=== PATIENT | female | born 1965 | race Caucasian/White ===

== ENCOUNTER → 2016-07-02 | Outpatient (REF) | payer OTHER ==
[~2016-07-02] MED LIST: /CELE20CA PO; /FENO48TA OR; /LINE60TA OR; ACET-654 PO; ACET65TA OR; ALTE2VL IV; AQUAOI TOP; ASCO25TA PO; ASCO500T PO; ASPI1TAB PO; ASPI81CH PO; ASPI81TA7 PO; ATIV1TAB7 PO; ATOR1TAB18 PO; ATOR1TAB19 PO; ATOR40TA PO; AVELOX IV; AZIT500T2 PO; BACT2OIN2 TOP; BACT800T5 PO; BENA25TA4 PO; BISA5TAB7 PO; CEFA1VL IV; CEFD1CAP8 PO; CEFD300CAP PO; CLIN300C PO; COLA100C PO; DAPTOMYCIN IV; EUCECRE2 TOP; EUCECRE3 TOP; FENO160T10 PO; FERR325T PO; FLUC10TA PO; FURO20TA2 PO; GABA-283 PO; GABA300C3 PO; GEMF600T PO; GLUC1000 OR; GLUC1000 PO; GLUC1VL SC; GLUC4CHW PO; HEPA100PFS INJ; HEPA100PFS IV; HEPA100SYR IV; HEPA500020 SC; HEPARIN IVF; INSUDET SC; INSUH10VL SC; INSUHUMDS SC; INSULADS SC; INSULANT SC; INSULIN ASPART; INSULIN ASPART SQ; JANUVIA OR; LEVA500T PO; LEVO750T PO; LIPI80TA PO; LISI-538 PO; LISI20TA5 OR; MAG400TA PO; MAGN400T5 PO; MAGN500T2 OR; MAPA325T2 PO; METF1000 PO; MOM30SS PO; MOTR200T40 PO; MULTCAP PO; NACL IVF; NEUR100C OR; NEUR100C PO; NICO14DI3 TD; NYST10PW TOP; ONDA1TAB15 PO; OXCA15HATB OR; OXYC15TA76 PO; OXYC1CON PO; OXYC1SOL PO; OXYCO5TA PO; PEG1POW PO; PERC5TAB PO; PERC5TAB6 PO; PERC5TAB8 OR; PERCOCET PO; PRIN10TA PO; REGL5TAB2 PO; ROBA750T4 PO; ROXI1TAB2 PO; SALI0.9I2 IV; SENO8.6T9 PO; SIMV80TA OR; SLF IV; TEFL600I IV; TRIA1OI EXT; TRIA1OI TOP; TRIL150T PO; TRIL1TAB PO; TRIL300S PO; TYLE325T5 PO; TYLE650T30 PO; VANC1INJ IV; VARE1TA PO; VITA-130 PO; VITMTA PO; ZOLO100T PO; ZOLO25TA PO; ZOLO50TA OR; [UNRECOGNIZED DRUG - CODE] EXT; [UNRECOGNIZED DRUG - CODE] INJ; [UNRECOGNIZED DRUG - OTHER]; [UNRECOGNIZED DRUG - OTHER]; [UNRECOGNIZED DRUG - OTHER] IVFLUSH; lantus SQ; tricor PO
[2016-07-02 13:18] LABS: ALBUMIN 2.5 GM/DL (3.2-5.2); ALBUMIN/GLOBULIN RATIO 0.58 (1.00-1.93); ALKALINE PHOSPHATASE 168 U/L (45-117); ALT/SGPT 18 U/L (12-78); ANION GAP 11 MEQ/L (8-16); AST/SGOT 7 U/L (15-37); BILIRUBIN,TOTAL 0.2 MG/DL (0.2-1.0); BLOOD UREA NITROGEN 15 MG/DL (7-18); CALCIUM LEVEL 9.2 MG/DL (8.5-10.1); CARBON DIOXIDE LEVEL 27 MEQ/L (21-32); CHLORIDE LEVEL 100 MEQ/L (98-107); GLOMERULAR FILTRATION RATE > 60.0 (>58); GLUCOSE, FASTING 278 MG/DL (70-105); POTASSIUM SERUM 4.6 MEQ/L (3.5-5.1); SODIUM LEVEL 138 MEQ/L (136-145); TOTAL PROTEIN 6.8 GM/DL (6.4-8.2)
== END | disposition home or self-care (01) ==
LOC: M SFHCPLAZ 08:27
PROVIDERS: ATTEND Physician Assistant Medical
DX: E11.40 Type 2 diabetes mellitus with diabetic neuropathy, unspecified (principal)

== ENCOUNTER → 2016-07-04 | Outpatient (REF) | payer OTHER ==
[2016-07-04 10:19] LABS: CHOLESTEROL LEVEL 232 MG/DL (<200); TRIGLYCERIDES LEVEL 469 MG/DL (<150)
== END | disposition home or self-care (01) ==
LOC: M LAB REF 09:41
PROVIDERS: ATTEND Physician Assistant Medical
DX: E11.40 Type 2 diabetes mellitus with diabetic neuropathy, unspecified (principal); E78.5 Hyperlipidemia, unspecified

== ENCOUNTER → 2016-08-25 | Outpatient (REF) | payer OTHER ==
[~2016-08-25] MED LIST changes: -MOTR200T40 PO; +MOTR200T44 PO; +VANC10005 INJ; -[UNRECOGNIZED DRUG - CODE] INJ
[2016-08-25 12:09] LABS: BASO # 0.1 K/mm3 (0.0-0.2); BASO % 0.7 % (0.0-1.0); EOS # 0.1 K/mm3 (0.0-0.50); LARGE UNSTAINED CELL # 0.2 K/mm3 (0.0-0.4); LARGE UNSTAINED CELL % 1.2 % (0.0-4.0); LYMPH # 2.8 K/mm3 (1.5-4.5); LYMPH % 20.7 % (24.0-44.0); MEAN CORPUSCULAR HEMOGLOBIN 27.5 pg (27.0-33.0); MEAN CORPUSCULAR HGB CONC 32.9 g/dl (32.0-36.5); MEAN CORPUSCULAR VOLUME 83.7 fl (80.0-96.0); MONO # 0.8 K/mm3 (0.0-0.8); MONO % 5.9 % (0.0-5.0); NEUTROPHILS % 70.4 % (36.0-66.0); PLATELET COUNT, AUTOMATED 357 k/mm3 (150-450); RED CELL DISTRIBUTION WIDTH 14.6 % (11.5-14.5); WHITE BLOOD COUNT 12.8 K/mm3 (4.0-10.0)
[2016-08-25 12:24] LABS: ANION GAP 14 MEQ/L (8-16); BLOOD UREA NITROGEN 19 MG/DL (7-18); CALCIUM LEVEL 8.4 MG/DL (8.5-10.1); CARBON DIOXIDE LEVEL 21 MEQ/L (21-32); CHLORIDE LEVEL 104 MEQ/L (98-107); CREATININE FOR GFR 0.58 MG/DL (0.55-1.02); GLOMERULAR FILTRATION RATE > 60.0 (>58); GLUCOSE, FASTING 225 MG/DL (70-105); SODIUM LEVEL 139 MEQ/L (136-145)
[2016-08-25 12:43] LABS: ERYTHROCYTE SEDIMENTATION RATE 46 mm/hr (0-20)
== END ==
LOC: M SFHCPLAZ 09:54
PROVIDERS: ATTEND Internal Medicine Infectious Disease
DX: M86.671 Other chronic osteomyelitis, right ankle and foot (principal); E11.40 Type 2 diabetes mellitus with diabetic neuropathy, unspecified

== ENCOUNTER → 2016-08-27 | Outpatient (CLI) | payer OTHER ==
--- NOTE | 2016-08-27 17:00 | REP ---
MRI study of the right foot without and with IV gadolinium: History: Chronic osteomyelitis right foot. Comparison MRI study is from 11/16/2015. Comparison exam showed signal intensity findings compatible with osteomyelitis in the 1st and the 5th metatarsals. The patient is status post amputation of the forefoot across the mid metatarsals. The most recent comparison radiographs available are from 08/18/2015. Gadolinium enhancement dose: 22 mL of intravenous ProHance is administered. MRI technique: Axial, coronal and sagittal imaging planes are utilized. T1 and T2-weighted scans were obtained with and without fat saturation in the usual fashion. MRI findings: The previously noted findings of intraosseous low T1, high T2 signal intensity in the remaining aspect of the 5th metatarsal is resolved on today's study. However, there is persistent or recurrent abnormal signal intensity in the remaining 1st metatarsal characterized by low T1 and high T2 signal intensity on precontrast study and gadolinium enhancement on postcontrast imaging again consistent with osteomyelitis. There is some cortical destruction and there appears to be periosteal reaction. Enhancement is seen in the volar and distal soft tissues at this level as well at the stump. No soft tissue abscess is seen. There is an overlying dressing and some soft tissue deficiency suggesting the possibility of a fistula. The remaining 2nd, 3rd, and 4th metatarsals show normal signal intensity. The tarsal bones show normal cortical and medullary bone signal intensity. No other lesion. Impression: Today's findings are consistent with ongoing osteomyelitis involving the remaining 1st metatarsal. No abscess is seen in the adjacent soft tissues. Signed by Kit Sandhu MD 08/27/2016 05:24 P
== END ==
LOC: M RAD 13:17
PROVIDERS: ATTEND Internal Medicine Infectious Disease
DX: M86.671 Other chronic osteomyelitis, right ankle and foot (principal)
CPT/HCPCS: 73720; A9576

== ENCOUNTER → 2016-09-30 | Outpatient (REF) | payer OTHER ==
[~2016-09-30] MED LIST changes: -COLA100C PO; +COLA100C3 PO; +GABA-282 PO; -GABA300C3 PO
[2016-10-01 13:57] LABS: CALCIUM OXALATE CRYSTALS LARGE
== END ==
LOC: M SFHCPLAZ 12:12
PROVIDERS: ATTEND Physician Assistant Medical
DX: R30.0 Dysuria (principal)

== ENCOUNTER → 2016-10-03 | Outpatient (REF) | payer OTHER ==
[2016-10-03 15:58] LABS: YEAST LIKE CELL URINE AUTO MODERATE
== END ==
LOC: M SFHCPLAZ 15:36
PROVIDERS: ATTEND Physician Assistant Medical
DX: N30.01 Acute cystitis with hematuria (principal)

== ENCOUNTER → 2016-12-24 | Outpatient (REF) | payer OTHER ==
[~2016-12-24] MED LIST changes: -ATOR1TAB18 PO; +ATOR80TA59 PO; +BACL10TA2 PO; +BACT2OIN10 TOP; -BACT2OIN2 TOP; -COLA100C3 PO; +COLA100C5 PO; +DULO30CA PO; +FERR1TAB8 PO; -FERR325T PO; +FURO40TA2 PO; +GABA800T PO; +GLUC500T PO; +HYDR-3363 PO; +LEVA1TAB2 PO; -LEVA500T PO; +LISI-542 PO; +LISI2.5T3 PO; -METF1000 PO; +METF10004 PO; -ONDA1TAB15 PO; +ONDA4TAB5 PO; +OXCA150T PO; -OXYC1SOL PO; +OXYC1SOL3 PO; +PERC5TAB12 PO; -PERC5TAB6 PO; +TOUJ1.2I SC; -VITA-130 PO; +VITA500T PO
[2016-12-24 16:36] LABS: ANION GAP 8 MEQ/L (8-16); BLOOD UREA NITROGEN 15 MG/DL (7-18); CALCIUM LEVEL 8.7 MG/DL (8.5-10.1); CARBON DIOXIDE LEVEL 26 MEQ/L (21-32); CHLORIDE LEVEL 99 MEQ/L (98-107); GLOMERULAR FILTRATION RATE > 60.0 (>58); POTASSIUM SERUM 4.7 MEQ/L (3.5-5.1); SODIUM LEVEL 133 MEQ/L (136-145)
[2016-12-24 16:45] LABS: GLUCOSE, FASTING 440 MG/DL (70-105)
[2016-12-24 17:21] LABS: BASO # 0.1 K/mm3 (0.0-0.2); BASO % 0.9 % (0.0-1.0); EOS # 0.2 K/mm3 (0.0-0.50); EOS % 1.7 % (0.0-3.0); LARGE UNSTAINED CELL # 0.2 K/mm3 (0.0-0.4); LARGE UNSTAINED CELL % 1.7 % (0.0-4.0); LYMPH # 3.1 K/mm3 (1.5-4.5); MEAN CORPUSCULAR HEMOGLOBIN 29.2 pg (27.0-33.0); MEAN CORPUSCULAR HGB CONC 32.7 g/dl (32.0-36.5); MEAN CORPUSCULAR VOLUME 89.4 fl (80.0-96.0); MONO # 0.4 K/mm3 (0.0-0.8); NEUTROPHILS % 60.7 % (36.0-66.0); PLATELET COUNT, AUTOMATED 397 k/mm3 (150-450); WHITE BLOOD COUNT 9.8 K/mm3 (4.0-10.0)
[2016-12-24 21:03] LABS: ERYTHROCYTE SEDIMENTATION RATE 75 mm/hr (0-20)
== END ==
LOC: M SFHCPLAZ 13:06
PROVIDERS: ATTEND Internal Medicine Infectious Disease
DX: M86.671 Other chronic osteomyelitis, right ankle and foot (principal); E11.42 Type 2 diabetes mellitus with diabetic polyneuropathy

== ENCOUNTER 2017-01-02 06:48 | Inpatient (IN) | payer OTHER ==
[~2017-01-02] VITALS: Ht 157.5 cm; Wt 115.7 kg
[2017-01-02] VITALS (9 sets, daily range): BP systolic 120–174; BP diastolic 56–84
[~2017-01-02 06:48] MED LIST changes: -BACL10TA2 PO; -DULO30CA PO; -FURO40TA2 PO; -GABA800T PO; -GLUC500T PO; -HYDR-3363 PO; -LISI-542 PO; -LISI2.5T3 PO; -OXCA150T PO; -TOUJ1.2I SC
[2017-01-02 07:52] LABS: BASO # 0.1 K/mm3 (0.0-0.2); BASO % 0.8 % (0.0-1.0); EOS # 0.2 K/mm3 (0.0-0.50); EOS % 2.5 % (0.0-3.0); LARGE UNSTAINED CELL # 0.1 K/mm3 (0.0-0.4); LARGE UNSTAINED CELL % 1.4 % (0.0-4.0); LYMPH % 32.9 % (24.0-44.0); MEAN CORPUSCULAR HEMOGLOBIN 28.9 pg (27.0-33.0); MEAN CORPUSCULAR HGB CONC 33.2 g/dl (32.0-36.5); MONO # 0.4 K/mm3 (0.0-0.8); NEUTROPHILS % 57.4 % (36.0-66.0); PLATELET COUNT, AUTOMATED 354 k/mm3 (150-450); RED CELL DISTRIBUTION WIDTH 13.9 % (11.5-14.5); WHITE BLOOD COUNT 8.7 K/mm3 (4.0-10.0)
[2017-01-02 08:10] LABS: METHADONE URINE NEGATIVE (NEGATIVE)
[2017-01-02 08:14] LABS: ALBUMIN 2.6 GM/DL (3.2-5.2); ALBUMIN/GLOBULIN RATIO 0.54 (1.00-1.93); ALKALINE PHOSPHATASE 125 U/L (45-117); ALT/SGPT 20 U/L (12-78); ANION GAP 9 MEQ/L (8-16); AST/SGOT 12 U/L (15-37); BILIRUBIN,DIRECT < 0.1 MG/DL (0.0-0.2); BILIRUBIN,TOTAL 0.2 MG/DL (0.2-1.0); BLOOD UREA NITROGEN 23 MG/DL (7-18); CALCIUM LEVEL 8.7 MG/DL (8.5-10.1); CARBON DIOXIDE LEVEL 25 MEQ/L (21-32); CHLORIDE LEVEL 105 MEQ/L (98-107); CREATININE FOR GFR 1.02 MG/DL (0.55-1.02); GLOMERULAR FILTRATION RATE > 60.0 (>58); POTASSIUM SERUM 4.4 MEQ/L (3.5-5.1); SODIUM LEVEL 139 MEQ/L (136-145); TOTAL PROTEIN 7.4 GM/DL (6.4-8.2)
[2017-01-02] MEDS ORDERED: DULO30CA PO (08:16)
[2017-01-02 08:17] LABS: GLUCOSE, FASTING 445 MG/DL (70-105)
[2017-01-02] MEDS ORDERED: TOUJ1.2I SC (08:17)
[2017-01-02] MEDS ORDERED: BACL10TA2 PO (08:18)
[2017-01-02] MEDS ORDERED: CHLORHEXIDINE GLUCONATE 0.12 % 15ML UDC (PERIDEX ORAL RINSE) MT SCH (09:00)
[2017-01-02] MEDS ORDERED: PANTOPRAZOLE 40MG INJ (PROTONIX) (C9113) IV SCH (09:00)
[2017-01-02] MEDS ORDERED: GABA800T PO (09:29)
[2017-01-02] MEDS ORDERED: OXCA150T PO (09:29)
[2017-01-02] MEDS ORDERED: LISI2.5T3 PO (09:29)
[2017-01-02] MEDS ORDERED: PROPOFOL 1,000 MG/100 ML VIAL As Ordered ONE (09:29)
[2017-01-02] MEDS ORDERED: ATOR1TAB19 PO (09:29)
[2017-01-02] MEDS ORDERED: NEUR100C PO (09:29)
[2017-01-02] MEDS ORDERED: NS 1,000 ML IV SCH (09:30)
[2017-01-02] MEDS ORDERED: PROPOFOL 1,000 MG in APPROPRIATE DILUENT 1 EA IV SCH ×2 (09:30→10:44)
[2017-01-02 10:04] LABS: ABG BASE EXCESS -5.2 (-2.0-2.0); ABG HCO3 21.2 MEQ/L (22.0-26.0); ABG PARTIAL PRESSURE CO2 44.2 mmHg (35.0-45.0); ABG PARTIAL PRESSURE O2 149.1 mmHg (75.0-100.0); ABG STANDARD HCO3 20.3 MEQ/L (22.0-26.0); ABG TOTAL CO2 22.5 MEQ/L (22.0-29.0); ABG pH (ARTERIAL) 7.298 UNITS (7.350-7.450)
--- NOTE | 2017-01-02 10:11 | REP ---
Clinical: Intubation. Comparison: 11/08/2015. Findings: Endotracheal tube approximately 2.4 cm above the madhav. Bilateral perihilar infiltrates cannot be excluded (left greater than right). The mediastinum and cardiac silhouette are within normal limits. No effusion. No pneumothorax. Skeletal structures intact. Impression: Endotracheal tube approximately 2.4 cm above the madhav. Cannot exclude perihilar/retrocardiac atelectasis. Signed by Kaiden Buenrostro MD 01/02/2017 10:02 A
[2017-01-02] MEDS ORDERED: SUCCINYLCHOLINE INJ 200 MG/10 ML VIAL (J0330) IV ONE (10:30)
[2017-01-02] MEDS ORDERED: ETOMIDATE INJ 20MG/10ML VIAL IV ONE (10:30)
[2017-01-02] MEDS ORDERED: LIDOCAINE 2% INJ 100 MG/5 ML SYRINGE IV ONE (10:30)
[2017-01-02] MEDS ORDERED: DEXTROSE 50% 50 ML SYRINGE IV PRN (11:15)
[2017-01-02] MEDS ORDERED: GLUCAGON FOR INJ 1 MG VIAL (J1610) SC PRN (11:15)
[2017-01-02] MEDS ORDERED: GLUCOSE 4 GM CHEW TABLET PO PRN (11:15)
[2017-01-02] MEDS ORDERED: MIDAZOLAM INJ 2 MG/2 ML VIAL (J2250) As Ordered ONE (12:35)
[2017-01-02] MEDS ORDERED: MORPHINE 2 MG/ML 1ML SYRINGE IV PRN (13:00)
[2017-01-02 13:10] LABS: GLUCOSE,RANDOM 449 MG/DL (LESS THAN 200)
[2017-01-02] MEDS: HEPARIN SOD (PORCINE) 5000 UNITS/ML VIAL SC SCH ×2 (13:18→21:03)
[2017-01-02] MEDS: LEVEMIR (INSULIN DETEMIR) 1 UNITS/0.01ML SC SCH (13:19)
[2017-01-02] MEDS: HumaLOG INSULIN (NovoLOG) PER UNIT SC SCH ×3 (13:19→23:56)
[2017-01-02] MEDS: NS 1,000 ML IV SCH ×2 (13:20→19:20)
--- NOTE | 2017-01-02 13:38 | HPE ---
DATE OF ADMISSION: 01/02/2017 Time patient was seen was this morning at 10:30. PRIMARY CARE PROVIDER: The patient's primary care provider is Elly Sexton. CHIEF COMPLAINT: Overdose. HISTORY OF PRESENT ILLNESS: 51-year-old female with multiple comorbidities, most significantly insulin-dependent type 2 diabetes, bipolar, chronic osteomyelitis, status post bilateral metatarsal amputations with chronic right stump ulcer, who presented with drug overdose. The patient was initially seen by emergency room physician. She was awake and alert initially, and stated that she might have overdosed on metformin and also Lisinopril and also "sleep medication." The patient later on became somnolent and was subsequently intubated. At this point, critical care was emergently consulted. Poison control was contacted. The patient was kept on pressure control ventilator. Upon reviewing the patient 's outpatient visit, she was recently started on Baclofen and Trileptal, which could explain the patient' s somnolence. The patient did not have a low blood pressure, nor did she have lactic acid increase while she was in the emergency room essentially eliminating metformin and lisinopril as the overdose agents. Due to intubated and sedation with propofol, she could not be interviewed. ALLERGIES: The patient is allergic to PROZAC, which gives her hives, TRAZODONE gives her hives, SUDAFED gives her hives as well. PAST MEDICAL HISTORY: 1. Insulin dependent type 2 diabetes. 2. Chronic osteomyelitis of bilateral feet, status post metatarsal amputations. 3. New ulcer at the right stump of the lower extremity, receiving antibiotic therapy. 4. Hypertension. 5. Hyperlipidemia. 6. Bipolar. 7. 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 PAST SURGICAL HISTORY: 1. Left and right partial foot amputations. 2. Tubal ligation. 3. section. 4. Cholecystectomy. HOME MEDICATIONS: Include: - multivitamin - ascorbic acid - Eucerin cream - Lisinopril 2.5 mg one tablet by mouth daily - Cymbalta 30 mg one tablet by mouth daily - gabapentin 800 mg one tablet by mouth three times a day - atorvastatin 10 mg one tablet by mouth daily - metformin 1000 mg one tablet by mouth - Toujeo 63 units subcutaneously twice a day - amoxicillin 875 mg one tablet every 12 hours Recently started on Baclofen 10 mg one tablet by mouth three times a day for 30 days and Trileptal. PHYSICAL EXAMINATION: VITAL SIGNS: Temperature 96.7, pulse 97, respirations 14, blood pressure 162/85 , oxygen saturation at 99% on pressure support mechanical ventilation with PEEP of 5, pressure of 15, and FiO2 of 40. GENERAL: The patient is morbidly obese, middle aged female who looks older than her age. The patient was intubated and sedated with head elevated at 30 degrees. HEENT: Normocephalic, atraumatic. Extraocular motors could not be assessed due to the patient is unresponsive and sedated. Mucous membranes moist. NECK: Supple. No neck lymphadenopathy. CARDIOVASCULAR: Tachycardic. Normal S1, S2. No murmurs. LUNGS: Clear to auscultation bilaterally. No wheezes, rales or rhonchi. Normal I:E. ABDOMEN: Positive bowel sounds. Soft, nondistended. No ecchymosis. EXTREMITIES: No edema, clubbing or cyanosis. The patient does have bilateral partial foot amputation with a chronic right foot stump ulcer, which was examined and shows good granulation tissue. Does not look purulent. There was only slight amount of drainage and a slightly erythematous. SKIN: Warm and dry. NEUROLOGIC: Could not be assessed due to the patient is sedated. However, the patient was responsive to pain. LABORATORY DATA: WBC 8.7, hemoglobin 12.7, hematocrit 38.2 with a platelet count of 354, MCV of 87, neutrophil percentage was 57.4, lymphocyte percentage 32.9. Sodium 139, potassium 4.4, chloride 105, bicarbonate 25, anion gap was 9, BUN 23 , creatinine 1.02, GFR greater than 60, fasting glucose 445, lactic acid 1.2, calcium 8.7, total bilirubin 0.2, direct bilirubin less than 0.01, AST 12, ALT 20, alkaline phosphatase 125, total CK 47, protein 7.4, albumin 2.6. The patient's ABG shows a pH of 7.29, PCO2 of 44, PO2 of 149, oxygen saturating at 98.9%, base excess of -5.2. The patient's urine drug screen shows negative. Accu-Chek glucose was 421. There is no culture. The patient did have a portable chest x-ray status post intubation that shows endotracheal tube in the correct location; no consolidated areas, normal cardiac silhouette and pulmonary vascular shadows. EKG shows sinus tachy without prolonged QTc. ASSESSMENT AND PLAN: 51-year-old female with a past medical history most significantly insulin-dependent type 2 diabetes, osteomyelitis of the right foot , also status post bilateral partial foot amputations, chronic ulcer of the stump on the right side, bipolar, and hypertension, who presented with: 1. Drug overdose. Could not protect the airway and therefore is on mechanical ventilation. At this point, it is unclear which medication she overdosed on. The patient stated initially that she took metformin, Lisinopril and a sleeping pill. Will recheck salicylate and acetaminophen levels. After reviewing medication list, this is likely Baclofen and/or Trileptal. We will continue IV fluid. We will continue supportive care with mechanical ventilation and iv fluids. 2. Left lower extremity chronic ulcer. The patient takes amoxicillin outpatient and follows with Dr. Thomas. The wound has been inspected and shows good granulation tissue. No purulent drainage. Due to patient's nothing by mouth, we will switch the patient to a first generation cephalosporin, cefazolin IV every 8 hours and we will switch back to amoxicillin once the patient is able to tolerate orally and continue to monitor the patient. Dr. Thomas has been consulted, will follow her recommendation. 3. Insulin-dependent type 2 diabetes with hyperglycemia. On presentation, the patient's glucose was 445. The patient was on Toujeo 63 twice a day at home. Due to the patient's overdose, we will cut the insulin dose to 40 subcutaneously daily and continue the patient on insulin sliding scale. We will increase as needed. 4. Chronic pain. Gabapentin on hold due to nothing by mouth. 5. Hyperlipidemia. Continue to hold statin due to nothing by mouth. 6. Hypertension. Holding blood pressure medication for now. If elevated, we will adjust blood pressure as needed. 7. Deep vein thrombosis (DVT) prophylaxis. On heparin subcutaneously every 8 hours. 8. Stress ulcer prophylaxis with PPi. Total critical care time was 1 hour excluding procedure time. ADDENDUM: I, Dr. Kimberly Jasso, independently obtained a history and performed an examination and agree with the documentation. I discussed the assessment and plan with the resident and agree with the above documentation. JACOB
[2017-01-02] MEDS: ceFAZolin SOD 1 GM in D5W MINI-BAG PLUS 50 ML IV SCH ×2 (13:53→19:58)
[2017-01-02] MEDS: MIDAZOLAM INJ 2 MG/2 ML VIAL (J2250) IV PRN ×3 (13:56→14:32)
[2017-01-02] MEDS ORDERED: PROPOFOL 200 MG/20 ML VIAL ONE (15:08)
[2017-01-02] MEDS ORDERED: ETOMIDATE INJ 20MG/10ML VIAL ONE (15:08)
[2017-01-02] MEDS ORDERED: SUCCINYLCHOLINE 100 MG/5 ML SYRINGE (J0330) ONE (15:08)
[2017-01-02] MEDS ORDERED: ONDANSETRON 4MG/2ML VIAL (J2405) As Ordered ONE (16:22)
[2017-01-02] MEDS: ONDANSETRON 4MG/2ML VIAL (J2405) IV PRN (16:52)
--- NOTE | 2017-01-02 20:52 | ECGEPIP ---
Stationary ECG Study [facility] - ED Test Date: 2017-01-02 Pat Name: KIYA MCKENZIE Department: Room: - Gender: F Bureau Director: sb : [id number] Requested By: HASMUKH Carrasquillo Order Number: [id number] Reading MD: Lidia Robertson Measurements Intervals [place] Rate: 92 P: 66 [place]: 199 QRS: -24 QRSD: 100 T: 59 QT: 355 QTc: 440 Interpretive Statements SINUS RHYTHM BORDERLINE LEFT AXIS DEVIATION MODERATE VOLTAGE CRITERIA FOR LVH, CONSIDER NORMAL VARIANT INCREASED RATE 02/20/15 Electronically Signed On 01-02-2017 20:52:35 EDT by Lidia Robertson
--- NOTE | 2017-01-02 23:55 | CCN ---
DATE: 01/02/2017 This is the second critical care note today on Ms. Mckenzie: Ms. Mckenzie was admitted this morning after presenting to the emergency department with a complaint of taking extra medication that appeared to be secondary to suicidal attempt/gesture. It is unclear as to what medications she took, as the medication she claimed to have taken we see no signs of. That was lisinopril and she has actually been hypertensive, and metformin and she has had elevated glucoses. She has been monitored for changes from either of those two medications for 10 hours. Relatively new medications were Trileptal and baclofen and both of those could cause a sedating effect, which may have been what she had taken more of. In the emergency department, she was described as getting more lethargic, loss of gag and she was intubated. By the time she arrived in the intensive care unit, she appeared to be awake and following commands. She was sedated and watched for several more hours. When her sedation was discontinued, she was awake, alert with a very strong gag and strong cough, was following commands. A brief weaning trial was done on a pressure support of 5 and a PEEP of 5. On those settings, she could increase her tidal volume on request to greater than 1100 mL. A rapid shallow breathing index was in the 30s. She had no significant secretions, and it was felt reasonable to extubate her. She was successfully extubated and is now on an aerosol mask. She indicates she is getting enough air. She has no complaints of chest pain or shortness of breath. No abdominal pain or feelings of nausea. Additional critical care time: 25 minutes, not including procedure time. JACOB
[2017-01-03] VITALS (12 sets, daily range): BP systolic 142–189; BP diastolic 60–90
[2017-01-03] MEDS: ceFAZolin SOD 1 GM in D5W MINI-BAG PLUS 50 ML IV SCH ×3 (03:14→21:47)
--- NOTE | 2017-01-03 03:24 | CR ---
DATE OF CONSULTATION: 01/02/2017 I was asked to consult by Dr. Jasso for management of chronic osteomyelitis of the right foot. HISTORY OF PRESENT ILLNESS: Iliana is a pleasant 51-year-old morbidly obese female with insulin-dependent diabetes and chronic osteomyelitis of the right foot, who follows up with me for management of antibiotic, but has a history of noncompliance. A week ago due to a new ulcer of the right foot with positive culture for group B Streptococcus. The patient was brought into the emergency room awake and alert and then stated in the emergency room she might have overdosed on metformin and some sleep medication. Recently she was given baclofen and Trileptal by her primary care provider for management of depression. When I saw her in the office, she was complaining of being very depressed, had not been seen by a psychiatrist. I did recommend to her at that visit to go to the walk-in clinic on 12/31 that [facility] had available. The patient had promised me that she would do a walk-in appointment. Dr. Jasso was consulted and she was intubated for mental status changes and possible overdose and was started on intravenous (IV) antibiotics. ALLERGIES: PROZAC, TRAZODONE, SUDAFED. PAST MEDICAL HISTORY: Significant for: 1. Insulin-dependent diabetes type 2 with poor compliance. 2. Chronic osteomyelitis of the right foot status post transmetatarsal amputation with persistent open ulcer that is over the first metatarsal and a new ulcer along the fourth metatarsal. 3. Left foot status post transmetatarsal amputation well healed, neurotic excoriation. 4. Hypertension. 5. Hyperlipidemia. 6. Bipolar disorder. 7. History of methicillin-resistant Staphylococcus aureus (MRSA) infection. PAST SURGICAL HISTORY: 1. Bilateral transmetatarsal amputation. 2. Tubal ligation. 3. section. 4. Cholecystectomy. MEDICATIONS: - heparin subcutaneously 5000 units every 8 hours - Versed drip for sedation - morphine as needed for pain - insulin sliding scale - cefazolin 1 gram IV every 8 hours - nystatin powder to rash - Peridex oral rinse - Protonix 40 mg IV daily - Levemir 40 units subcutaneously daily LABORATORY DATA: White count was 8.7, hemoglobin 12.7, hematocrit 38.2, platelets 354, 57% neutrophils, 32% lymphocytes, 5% monocytes. Sodium 139, potassium 4.4, chloride 105, bicarbonate 25, BUN 23, creatinine 1, glucose 445. Followup glucose was 367. Calcium 8.7, total bilirubin 0.2, AST 12, ALT 20, alkaline phosphatase 125, CPK 47, total protein 7.4, albumin 2.6. Salicylate was 1.7 and Tylenol less than 2. Opiates were negative. Alcohol level less than 0.003. PHYSICAL EXAMINATION: Vital signs: Temperature is 97.8, pulse 96, respirations 16, blood pressure 132/62, oxygen saturation 99% on FiO2 of 50%. Heart: Normal S1, S2. No murmurs, rubs or gallops. Lungs are clear. No wheezes, rales or rhonchi. Abdomen: Morbidly obese, soft, nontender. Extremities: Bilateral transmetatarsal amputation. Right foot has an open ulcer overlying the first metatarsal site with erythema. The right plantar aspect of the foot has another ulcer measuring about 3 x 3 cm with yellowish discharge. There is erythema involving the whole stump of the foot, but some of it looks scaly and seems like a contact dermatitis from bandages. IMPRESSION: This is a 51-year-old female with a history of chronic osteomyelitis of the right foot with most recent cultures positive for group B Streptococcus, had been on Augmentin. The patient is admitted with mental status changes and required intubation for possible overdose, although her toxicology screens are all negative. She is stable currently. She does not seem to be septic. She is on intravenous (IV) cefazolin for osteomyelitis of the foot with a previous culture positive for group B Streptococcus. She has had a history of methicillin-resistant Staphylococcus aureus (MRSA) in the past and needs to be on contact isolation, but no recent cultures have been positive for that. The last culture that I have available to me was from the wound clinic in [facility] where she follows up with Dr. Livingston, was from 12/05 and had large numbers of group B Streptococcus sensitive to penicillin, vancomycin and levofloxacin. The patient had been on Augmentin since then. MRI of the right foot before the new ulcer developed showed osteomyelitis of the first metatarsal with no abscess formation. PLAN: Once the patient is extubated and her mental status has improved, she would benefit from getting an MRI of the foot and possible need for further surgical debridement. I would consult Dr. Alicea next week regarding further management. Obtain MRI with gadolinium next week. For now, I would continue with IV cefazolin. Contact isolation for previous history of MRSA. Would also add a C-reactive protein (CRP), sedimentation rate in the morning.
[2017-01-03] MEDS: NS 1,000 ML IV SCH (03:26)
[2017-01-03 04:41] LABS: MEAN CORPUSCULAR HEMOGLOBIN 28.8 pg (27.0-33.0); MEAN CORPUSCULAR HGB CONC 33.1 g/dl (32.0-36.5); WHITE BLOOD COUNT 8.9 K/mm3 (4.0-10.0)
[2017-01-03 04:59] LABS: ALBUMIN/GLOBULIN RATIO 0.48 (1.00-1.93); ALKALINE PHOSPHATASE 103 U/L (45-117); ALT/SGPT 17 U/L (12-78); ANION GAP 6 MEQ/L (8-16); AST/SGOT 13 U/L (15-37); BILIRUBIN,TOTAL 0.2 MG/DL (0.2-1.0); BLOOD UREA NITROGEN 15 MG/DL (7-18); CALCIUM LEVEL 8.2 MG/DL (8.5-10.1); CARBON DIOXIDE LEVEL 25 MEQ/L (21-32); CHLORIDE LEVEL 113 MEQ/L (98-107); CREATININE FOR GFR 0.49 MG/DL (0.55-1.02); GLUCOSE, FASTING 190 MG/DL (70-105); POTASSIUM SERUM 3.7 MEQ/L (3.5-5.1); SODIUM LEVEL 144 MEQ/L (136-145); TOTAL PROTEIN 6.2 GM/DL (6.4-8.2)
[2017-01-03] MEDS: HEPARIN SOD (PORCINE) 5000 UNITS/ML VIAL SC SCH ×3 (05:03→21:47)
[2017-01-03 05:10] LABS: GLOMERULAR FILTRATION RATE > 60.0 (>58)
[2017-01-03] MEDS: HumaLOG INSULIN (NovoLOG) PER UNIT SC SCH ×2 (05:55→11:55)
[2017-01-03] MEDS: LEVEMIR (INSULIN DETEMIR) 1 UNITS/0.01ML SC SCH (08:52)
[2017-01-03] MEDS: LISINOPRIL *2.5 MG* TAB PO SCH (14:09)
[2017-01-03] MEDS ORDERED: metFORMIN (GLUCOPHAGE) 1000 MG TABLET PO SCH (18:00)
[2017-01-03] MEDS: ATORVASTATIN 10 MG TAB PO SCH (21:46)
[2017-01-04] MEDS: PERCOCET 5MG/325MG TAB PO PRN ×3 (01:29→16:02)
[2017-01-04] MEDS: ceFAZolin SOD 1 GM in D5W MINI-BAG PLUS 50 ML IV SCH ×3 (03:59→19:51)
[2017-01-04] MEDS: HEPARIN SOD (PORCINE) 5000 UNITS/ML VIAL SC SCH ×3 (05:15→21:09)
[2017-01-04 06:00] VITALS: BP 148/95
[2017-01-04 06:20] LABS: MEAN CORPUSCULAR HGB CONC 33.4 g/dl (32.0-36.5); MEAN CORPUSCULAR VOLUME 86.9 fl (80.0-96.0); RED CELL DISTRIBUTION WIDTH 14.1 % (11.5-14.5); WHITE BLOOD COUNT 9.9 K/mm3 (4.0-10.0)
[2017-01-04 06:55] LABS: ALBUMIN 2.2 GM/DL (3.2-5.2); ALBUMIN/GLOBULIN RATIO 0.49 (1.00-1.93); ALKALINE PHOSPHATASE 117 U/L (45-117); ALT/SGPT 21 U/L (12-78); ANION GAP 9 MEQ/L (8-16); AST/SGOT 12 U/L (15-37); BILIRUBIN,TOTAL 0.2 MG/DL (0.2-1.0); BLOOD UREA NITROGEN 14 MG/DL (7-18); CALCIUM LEVEL 9.3 MG/DL (8.5-10.1); CARBON DIOXIDE LEVEL 25 MEQ/L (21-32); CHLORIDE LEVEL 104 MEQ/L (98-107); CREATININE FOR GFR 0.59 MG/DL (0.55-1.02); GLOMERULAR FILTRATION RATE > 60.0 (>58); GLUCOSE, FASTING 245 MG/DL (70-105); POTASSIUM SERUM 3.9 MEQ/L (3.5-5.1); SODIUM LEVEL 138 MEQ/L (136-145); TOTAL PROTEIN 6.7 GM/DL (6.4-8.2)
[2017-01-04] MEDS: LISINOPRIL *2.5 MG* TAB PO SCH (09:27)
[2017-01-04] MEDS: LEVEMIR (INSULIN DETEMIR) 1 UNITS/0.01ML SC SCH (09:27)
--- NOTE | 2017-01-04 12:09 | IPNPDOC ---
Subjective Date Seen The patient was seen on 01/04/17. Subjective Chief Complaint/HPI The patient is a 51-year-old female admitted with a reason for visit of Intentional Drug Overdose. General: Reports: Normal Appetite, Denies: Chills, Night Sweats Pulmonary: Denies: Dyspnea, Pleuritic Chest Pain Cardiovascular: Denies: Chest Pain, Palpitations, Orthopnea Gastrointestinal: Denies: Nausea, Vomiting, Abdominal Pain Genitourinary: Denies: Dysuria, Frequency Hematologic: Denies: Bruising, Bleeding Excessively Psych: Reports: Other Psych (agreeable to consult with psychiatry for c/o known bipolar Diagnosis) Objective Physical Examination General Exam: Positive: Alert, No Acute Distress Eye Exam: Positive: Conjunctiva & lids normal, EOMI, Negative: Sclera icteric Chest Exam: Positive: Clear to auscultation, Normal air movement Heart Exam: Positive: Rate Normal, Normal S1, Normal S2 Abdomen Exam: Positive: Normal bowel sounds, Soft, Negative: Tenderness Extremity Exam: Positive: Other (s/p left BKA; right forefoot amputation. open draining lesions near forward portion of stump and at heel. dressing replaced. ) Neuro Exam: Positive: Normal Speech Psych Exam: Positive: Mental status NL Assessment /Plan Problems (1) Osteomyelitis Status: Chronic Response to Treatment: Worse, Uncontrolled Problem Specific Plan: Consult Specialist (Consult Dr. Alicea tomorrow, MRI to be done tomorrow) Problem Text: Has been seeing Dr. Thomas and 1st generation cephalosporin has been ordered. MRI scheduled for tomorrow to better define extent of infection Will need consult with Dr. Alicea. He has seen her before. Anticipate she will need additional surgery. (2) IDDM (insulin dependent diabetes mellitus) Status: Chronic Response to Treatment: Stable Problem Specific Plan: Monitor Clinically (3) Bipolar affective disorder Status: Chronic Problem Specific Plan: Consult Specialist Problem Text: Psychiatry consult requested. Note recent intentional medication overdose. Today her mood is neutral, speech pattern normal, behavior controlled. Sitter with her for safety. Plan/VTE VTE Prophylaxis Ordered?: Yes Plan/Urinary Catheter Reason for insertion/continuin: Critical Pt monitoring Plan Diagnostics: MRI (foot) VS, I&O, 24H, Fishbone Vital Signs/I&O Vital Signs Date Time Temp Pulse Resp B/P (MAP) Pulse Ox O2 Delivery O2 Flow Rate FiO2 01/04/17 09:58 17 7/9/17 09:27 148/95 01/04/17 09:00 Room Air 01/04/17 06:00 98.1 79 97 01/03/17 06:00 95 01/03/17 00:00 2.0 I&O- Last 24 Hours up to 6 AM 01/04/17 05:59 Intake Total 3460 ml Output Total 3350 ml Balance 110 ml Laboratory Data 24H LABS Laboratory Tests 2 01/03/17 16:37: Bedside Glucose (Misc Panel) 278H 01/03/17 19:52: Bedside Glucose (Misc Panel) 365H 01/04/17 05:49: Erythrocyte Sedimentation Rate 70H, Anion Gap 9, Glomerular Filtration Rate > 60.0, Blood Urea Nitrogen 14, Creatinine 0.59, Sodium Level 138, Potassium Level 3.9, Chloride Level 104, Carbon Dioxide Level 25, Calcium Level 9.3, Aspartate Amino Transf (AST/SGOT) 12L, Alanine Aminotransferase (ALT/SGPT) 21, Alkaline Phosphatase 117, Total Bilirubin 0.2, Total Protein 6.7, Albumin 2.2L, C-Reactive Protein, Quantitative 4.28H, Albumin/Globulin Ratio 0.49L CBC/BMP Laboratory Tests 01/04/17 05:49 Red Blood Count 4.07, Mean Corpuscular Volume 86.9, Mean Corpuscular Hemoglobin 29.0, Mean Corpuscular Hemoglobin Concent 33.4, Red Cell Distribution Width 14.1 , Calcium Level 9.3, Aspartate Amino Transf (AST/SGOT) 12 L, Alanine Aminotransferase (ALT/SGPT) 21, Alkaline Phosphatase 117, Total Bilirubin 0.2, Total Protein 6.7, Albumin 2.2 L Milton Monaco MD Jan 04, 2017 12:09
[2017-01-04 14:00] VITALS: BP 175/83
[2017-01-04 14:05] VITALS: BP 155/80
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
[2017-01-04] MEDS: ATORVASTATIN 10 MG TAB PO SCH (19:51)
[2017-01-04 22:00] VITALS: BP 140/75
[2017-01-04] MEDS: NYSTATIN 100,000 UNITS/GM TOPICAL PWD 15 GM TOP PRN (22:11)
[2017-01-05] MEDS: PERCOCET 5MG/325MG TAB PO PRN ×3 (01:32→20:55)
[2017-01-05] MEDS: ceFAZolin SOD 1 GM in D5W MINI-BAG PLUS 50 ML IV SCH ×3 (03:44→20:48)
[2017-01-05] MEDS: HEPARIN SOD (PORCINE) 5000 UNITS/ML VIAL SC SCH ×2 (05:27→15:01)
[2017-01-05 05:52] LABS: MEAN CORPUSCULAR HEMOGLOBIN 28.7 pg (27.0-33.0); MEAN CORPUSCULAR HGB CONC 33.3 g/dl (32.0-36.5); MEAN CORPUSCULAR VOLUME 86.3 fl (80.0-96.0); WHITE BLOOD COUNT 8.9 K/mm3 (4.0-10.0)
[2017-01-05 06:00] VITALS: BP 152/80
[2017-01-05 06:11] LABS: ALBUMIN 2.3 GM/DL (3.2-5.2); ALBUMIN/GLOBULIN RATIO 0.51 (1.00-1.93); ALKALINE PHOSPHATASE 118 U/L (45-117); ALT/SGPT 19 U/L (12-78); ANION GAP 7 MEQ/L (8-16); AST/SGOT 13 U/L (15-37); BILIRUBIN,TOTAL 0.2 MG/DL (0.2-1.0); BLOOD UREA NITROGEN 15 MG/DL (7-18); CALCIUM LEVEL 9.2 MG/DL (8.5-10.1); CARBON DIOXIDE LEVEL 27 MEQ/L (21-32); CHLORIDE LEVEL 99 MEQ/L (98-107); CREATININE FOR GFR 0.62 MG/DL (0.55-1.02); GLOMERULAR FILTRATION RATE > 60.0 (>58); GLUCOSE, FASTING 293 MG/DL (70-105); SODIUM LEVEL 133 MEQ/L (136-145); TOTAL PROTEIN 6.8 GM/DL (6.4-8.2)
[2017-01-05] MEDS: LISINOPRIL 5 MG TAB PO SCH (08:39)
[2017-01-05] MEDS: LEVEMIR (INSULIN DETEMIR) 1 UNITS/0.01ML SC SCH ×2 (08:40→20:49)
--- NOTE | 2017-01-05 10:43 | REP ---
MRI RIGHT FOOT WITH AND WITHOUT CONTRAST: Multiple sequences obtained in the axial, coronal, and sagittal planes prior to and following the intravenous administration of 24 mL of gadolinium. Comparison made with prior study of 08/27/2016. Patient has had prior amputation at the level of the mid metatarsals. Once again there is persistent abnormal signal in the distal aspect of the first metatarsal. This signal is hypointense on T1 and hyperintense on T2. There is ill-defined enhancement of this portion of the bone consistent with chronic osteomyelitis. Findings are similar to the prior exam. No new abnormal bone marrow signal is seen in the osseous structures of the right foot and there is no other area of abnormal marrow enhancement. There is diffuse ill-defined high signal on T2-weighted images in the soft tissues of the forefoot compatible with diffuse edema. In addition, there are areas of ill-defined enhancement in this region compatible with cellulitis. No definite abscess is seen. IMPRESSION: Chronic osteomyelitis distal aspect first metatarsal similar to the prior exam of 08/27/2016. There is associated cellulitis of the forefoot. Signed by Keith García MD 01/05/2017 05:07 P
--- NOTE | 2017-01-05 11:29 | IPNPDOC ---
Subjective Date Seen The patient was seen on 01/05/17. Subjective Chief Complaint/HPI The patient is a 51-year-old female admitted with a reason for visit of Intentional Drug Overdose. Events since last encounter Pt without new concerns this morning. She remains concerned about the status of her R foot wound. Constitutional: Denies: Chills ENT: Denies: Head Aches Pulmonary: Denies: Dyspnea, Cough Cardiovascular: Denies: Chest Pain, Palpitations Gastrointestinal: Denies: Nausea, Vomiting Neurological: Denies: Weakness Psych: Reports: Depression Objective Physical Examination General Exam: Positive: Alert, No Acute Distress Eye Exam: Positive: Sclera icteric Chest Exam: Positive: Clear to auscultation, Normal air movement Heart Exam: Positive: Rate Normal, Normal S1, Normal S2 Abdomen Exam: Positive: Normal bowel sounds, Soft, Negative: Tenderness Extremity Exam: Positive: Other (s/p left BKA; right forefoot amputation. ) Neuro Exam: Positive: Normal Speech Psych Exam: Positive: Mental status NL Assessment /Plan Problems (1) Osteomyelitis Status: Chronic Response to Treatment: Worse, Uncontrolled Problem Specific Plan: Consult Specialist (Consult Dr. Alicea tomorrow, MRI to be done tomorrow) Problem Text: 01/05 - MRI R foot reveals persistent OM similar c/w 09/12. Pt reports that surgery previuosly done by Dr Livingston, she now follows with him for wound care in [place]. She has not been seen locally recently. Consult Dr Alicea. 01/[address] Thomsa and 1st generation cephalosporin has been ordered. MRI scheduled for tomorrow to better define extent of infection Will need consult with Dr. Alicea. He has seen her before. Anticipate she will need additional surgery. (2) IDDM (insulin dependent diabetes mellitus) Status: Chronic Response to Treatment: Stable, Uncontrolled Problem Specific Plan: Monitor Clinically Problem Text: 01/05/17: Glucose has been consistently elevated in the high 300s. It appears she is normally on Toujeo 63U BID and she has only been on levemir 50U daily here, which she received at 0900 today. Will add levemir 25U this evening and will also add an sliding scale - she normally takes novolog 20U QAC and HS at home. (KES) (3) Bipolar affective disorder Status: Chronic Problem Specific Plan: Consult Specialist Problem Text: 01/05 - Per Dr. Rangel's consult note, patient should be transferred to [facility] once medically cleared; she also recommended restarting her Trileptal 300 mg BID and Cymbalta 30 mg daily - I restarted these today. (KES) 01/04 Psychiatry consult requested. Note recent intentional medication overdose. Today her mood is neutral, speech pattern normal, behavior controlled. Sitter with her for safety. (4) Intentional drug overdose Status: Acute Plan/VTE VTE Prophylaxis Ordered?: Yes Plan/Urinary Catheter Reason for insertion/continuin: Critical Pt monitoring Plan Diagnostics: MRI (foot) Family Medicine Attending Note: I saw and examined Ms. Mckenzei today; I discussed with DAVID Raymundo and I agree with her note above with noted additions. Will await Dr. Alicea's consultation for osteomyelitis; once stable, will transfer to [facility]. (KES) VS, I&O, 24H, Fishbone Vital Signs/I&O Vital Signs Date Time Temp Pulse Resp B/P (MAP) Pulse Ox O2 Delivery O2 Flow Rate FiO2 01/05/17 09:10 18 01/05/17 08:39 152/80 01/05/17 06:00 97.6 79 97 Room Air 01/03/17 06:00 95 01/03/17 00:00 2.0 I&O- Last 24 Hours up to 6 AM 01/05/17 06:00 Intake Total 2160 ml Output Total 1900 ml Balance 260 ml Laboratory Data 24H LABS Laboratory Tests 2 01/04/17 11:55: Bedside Glucose (Misc Panel) 398H 01/04/17 16:40: Bedside Glucose (Misc Panel) 359H 01/04/17 20:06: Bedside Glucose (Misc Panel) 388H 01/05/17 05:36: Anion Gap 7L, Glomerular Filtration Rate > 60.0, Blood Urea Nitrogen 15, Creatinine 0.62, Sodium Level 133L, Potassium Level 4.0, Chloride Level 99, Carbon Dioxide Level 27, Calcium Level 9.2, Aspartate Amino Transf (AST/SGOT) 13L, Alanine Aminotransferase (ALT/SGPT) 19, Alkaline Phosphatase 118H, Total Bilirubin 0.2, Total Protein 6.8, Albumin 2.3L, Albumin/Globulin Ratio 0.51L CBC/BMP Laboratory Tests 01/05/17 05:36 Red Blood Count 4.18, Mean Corpuscular Volume 86.3, Mean Corpuscular Hemoglobin 28.7, Mean Corpuscular Hemoglobin Concent 33.3, Red Cell Distribution Width 14.0 , Calcium Level 9.2, Aspartate Amino Transf (AST/SGOT) 13 L, Alanine Aminotransferase (ALT/SGPT) 19, Alkaline Phosphatase 118 H, Total Bilirubin 0.2 , Total Protein 6.8, Albumin 2.3 L JESUS VELAZQUEZ PA-C Jan 05, 2017 11:29 NIRALI NELSON MD Jan 05, 2017 17:04
[2017-01-05 14:00] VITALS: BP 149/79
[2017-01-05] MEDS: DULoxetine 30 MG CAP (CYMBALTA) PO SCH (18:21)
[2017-01-05] MEDS: EUCERIN 120GM CREAM EXT SCH (18:21)
[2017-01-05] MEDS: HumaLOG INSULIN (NovoLOG) PER UNIT SC SCH (18:22)
--- NOTE | 2017-01-05 19:10 | IPN ---
DATE: 01/05/2017 CHIEF COMPLAINT: 51-year-old female seen for evaluation of chronic osteomyelitis of the first metatarsal with chronic ulceration. She is presently being [facility] She has had a transmetatarsal amputation which has continued ulcerations. She is seen today for evaluation. ALLERGIES: The patient is allergic to Prozac, trazodone, and Sudafed. PAST MEDICAL HISTORY: Type 2 diabetes, osteomyelitis right foot with transmetatarsal amputation, hypertension, hyperlipidemia, bipolar disorder. PAST SURGICAL HISTORY: Transmetatarsal amputation right foot, section, cholecystectomy, tubal ligation. AT HOME MEDICATIONS: - lisinopril 2.5 mg daily - Cymbalta 30 mg daily - gabapentin 800 mg three times a day - atorvastatin 10 mg daily - metformin 1000 mg daily - Toujeo 63 unit subcu twice a day - Augmentin 875 twice a day PHYSICAL EXAM: Reveals an alert and oriented 51-year-old female in no acute distress. There is bandage in place on her right foot. The bandage was removed revealing an ulceration submetatarsal 1 measuring 2 cm x 2 cm extending down to bone. There is an ulceration present on the lateral plantar surface of her right foot measuring 3 cm x 2 cm. This does not penetrate the bone. Her pedal pulses are palpable. There is erythema noted on the lateral and dorsal surfaces of the foot consistent with osteomyelitis and infected foot ulcerations. MRI was reviewed revealing signal changes on T1 and T2 of the distal first metatarsal stump consistent with osteomyelitis. ASSESSMENT: Chronic osteomyelitis first metatarsal right foot, stage 4 ulcerations right foot as described with infection. PLAN: Patient is scheduled tomorrow for surgical debridement of the first metatarsal. We will try to do this distal to the insertion point of the tibialis anterior and debridement of the ulcer with pulse lavage and insertion of antibiotic, vancomycin beads into right first metatarsal site with application of wound vac. Patient is nothing by mouth after breakfast tomorrow. Hold heparin. All of her questions were answered.
[2017-01-05] MEDS: ATORVASTATIN 10 MG TAB PO SCH (20:49)
[2017-01-05] MEDS: hydrOXYzine 25 MG TAB PO SCH (20:49)
[2017-01-05] MEDS: OXcarbazepine 150 MG TAB PO SCH (20:54)
[2017-01-05] MEDS ORDERED: OXcarbazepine 300 MG TAB PO SCH (21:00)
[2017-01-05 22:00] VITALS: BP 160/78
[2017-01-06] VITALS (8 sets, daily range): BP systolic 114–163; BP diastolic 58–74
--- NOTE | 2017-01-06 00:09 | IPN ---
DATE: 01/05/2017 Iliana was extubated on the weekend. She is doing better. She admitted to overdosing on baclofen and Trileptal. The patient is in a better mood today. She was seen by psychiatry who recommended restarting Trileptal and Cymbalta. She denies any nausea, vomiting, diarrhea, abdominal pain, fever or chills. She was seen by Dr. Alicea who scheduled her to go to the operating room (OR) tomorrow for debridement of the first metatarsal and ulceration on the right lateral aspect of the foot. She has had no fever or chills. No nausea, vomiting or diarrhea. She has been on cefazolin day #4. Previous wound cultures were positive for group B strep at the wound clinic. LABORATORY DATA: White count is 8.9, hemoglobin 12, hematocrit 36.1, platelets 333. ESR 70. Sodium 133, potassium 4, chloride 99, bicarbonate 27, BUN 15, creatinine 0.6, glucose 293, calcium 9.2, bilirubin 0.2, AST 13, ALT 19, alkaline phosphatase 118. No cultures have been done this admission. MRI of the foot was positive for chronic osteomyelitis of the first metatarsal at the distal aspect site of amputation. No osteomyelitis of the fifth metatarsal where the other ulcer is located. On physical exam, she has bilateral transmetatarsal amputation, The left foot is well healed. The right foot has an open area at the first metatarsal measuring 2 x 2 cm, which probed to bone. The lateral aspect of the foot overlying the fifth metatarsal she has a 3 x 2 cm erythematous with yellowish drainage with surrounding erythema. IMPRESSION: 1. Chronic osteomyelitis of first metatarsal with culture positive in the past for group B strep. 2. Infected foot ulcer overlying the fifth metatarsal with no evidence of osteomyelitis. 3. Insulin-dependent diabetes with poor compliance. 4. Major depression, bipolar disorder with suicidal attempt. 5. Poor IV access. PLAN: The patient will have a peripherally inserted central catheter (PICC) line scheduled for tomorrow. She would benefit from 6 weeks of IV antibiotics for chronic osteomyelitis as conservative therapy with oral antibiotics has not helped. She would also benefit from wound VAC. I suspect she will need intermediate placement for the next 6 weeks for home IV antibiotic and wound VAC would be the best ideal situation for her to have this foot healed up. It has been open for close to a year and a half at this point. Case has been discussed with Dr. Alicea. A bone biopsy will be obtained tomorrow. [facility]
[2017-01-06] MEDS: ceFAZolin SOD 1 GM in D5W MINI-BAG PLUS 50 ML IV SCH ×3 (03:36→20:01)
[2017-01-06 07:28] LABS: MEAN CORPUSCULAR HEMOGLOBIN 28.9 pg (27.0-33.0); MEAN CORPUSCULAR HGB CONC 33.3 g/dl (32.0-36.5); MEAN CORPUSCULAR VOLUME 86.6 fl (80.0-96.0); RED CELL DISTRIBUTION WIDTH 14.1 % (11.5-14.5); WHITE BLOOD COUNT 9.7 K/mm3 (4.0-10.0)
[2017-01-06 07:45] LABS: ALBUMIN 2.2 GM/DL (3.2-5.2); ALBUMIN/GLOBULIN RATIO 0.55 (1.00-1.93); ALKALINE PHOSPHATASE 113 U/L (45-117); ALT/SGPT 19 U/L (12-78); ANION GAP 7 MEQ/L (8-16); AST/SGOT 18 U/L (15-37); BILIRUBIN,TOTAL 0.2 MG/DL (0.2-1.0); BLOOD UREA NITROGEN 16 MG/DL (7-18); CALCIUM LEVEL 8.9 MG/DL (8.5-10.1); CARBON DIOXIDE LEVEL 27 MEQ/L (21-32); CHLORIDE LEVEL 101 MEQ/L (98-107); CREATININE FOR GFR 0.56 MG/DL (0.55-1.02); GLOMERULAR FILTRATION RATE > 60.0 (>58); GLUCOSE, FASTING 268 MG/DL (70-105); POTASSIUM SERUM 3.9 MEQ/L (3.5-5.1); SODIUM LEVEL 135 MEQ/L (136-145); TOTAL PROTEIN 6.2 GM/DL (6.4-8.2)
[2017-01-06] MEDS: EUCERIN 120GM CREAM EXT SCH (08:17)
[2017-01-06] MEDS: NYSTATIN 100,000 UNITS/GM TOPICAL PWD 15 GM TOP PRN (08:17)
[2017-01-06] MEDS: hydrOXYzine 25 MG TAB PO SCH ×2 (08:18→20:58)
[2017-01-06] MEDS: DULoxetine 30 MG CAP (CYMBALTA) PO SCH (08:18)
[2017-01-06] MEDS: LISINOPRIL 5 MG TAB PO SCH (08:18)
[2017-01-06] MEDS: OXcarbazepine 150 MG TAB PO SCH ×2 (08:18→20:58)
[2017-01-06] MEDS: PERCOCET 5MG/325MG TAB PO PRN ×2 (08:19→20:59)
[2017-01-06] MEDS: HumaLOG INSULIN (NovoLOG) PER UNIT SC SCH ×3 (08:19→17:04)
[2017-01-06] MEDS: LEVEMIR (INSULIN DETEMIR) 1 UNITS/0.01ML SC SCH ×2 (08:20→20:58)
--- NOTE | 2017-01-06 09:55 | IPNPDOC ---
Subjective Date Seen The patient was seen on 01/06/17. Subjective Chief Complaint/HPI The patient is a 51-year-old female admitted with a reason for visit of Intentional Drug Overdose. Events since last encounter Pt this morning without new concerns. She is relieved that she has a plan for her foot wound. Constitutional: Denies: Chills, Fever Skin: Denies: Rash Pulmonary: Denies: Dyspnea, Cough Cardiovascular: Denies: Chest Pain, Palpitations Gastrointestinal: Denies: Nausea, Vomiting Neurological: Denies: Weakness Psych: Reports: Mood Normal Objective Physical Examination General Exam: Positive: Alert, No Acute Distress Chest Exam: Positive: Clear to auscultation, Normal air movement Heart Exam: Positive: Rate Normal, Normal S1, Normal S2 Abdomen Exam: Positive: Normal bowel sounds, Soft, Negative: Tenderness Extremity Exam: Positive: Other (s/p left BKA; right forefoot amputation. ) Neuro Exam: Positive: Normal Speech Psych Exam: Positive: Mental status NL Assessment /Plan Problems (1) Osteomyelitis Status: Chronic Response to Treatment: Worse, Uncontrolled Problem Specific Plan: Consult Specialist (Consult Dr. Alicea tomorrow, MRI to be done tomorrow) Problem Text: 01/06 - plans for debridement with Dr Alicea later today, Dr Thomas also saw the pt and recommends PICC placement with 6 w IV Abx. 01/05 - MRI R foot reveals persistent OM similar c/w 09/12. Pt reports that surgery previuosly done by Dr Livingston, she now follows with him for wound care in [place]. She has not been seen locally recently. Consult Dr Alicea. 01/[address] Thomas and 1st generation cephalosporin has been ordered. MRI scheduled for tomorrow to better define extent of infection Will need consult with Dr. Alicea. He has seen her before. Anticipate she will need additional surgery. (2) IDDM (insulin dependent diabetes mellitus) Status: Chronic Response to Treatment: Stable, Uncontrolled Problem Specific Plan: Monitor Clinically Problem Text: 01/05/17: Glucose has been consistently elevated in the high 300s. It appears she is normally on Toujeo 63U BID and she has only been on levemir 50U daily here, which she received at 0900 today. Will add levemir 25U this evening and will also add an sliding scale - she normally takes novolog 20U QAC and HS at home. (KES) (3) Bipolar affective disorder Status: Chronic Problem Specific Plan: Consult Specialist Problem Text: 01/06 - once cleared by Dr Alicea, should talk with Psych about transfer to [facility], later today or tomorrow. 01/05 - Per Dr. Rangel's consult note, patient should be transferred to [facility] once medically cleared; she also recommended restarting her Trileptal 300 mg BID and Cymbalta 30 mg daily - I restarted these today. (KES) 01/04 Psychiatry consult requested. Note recent intentional medication overdose. Today her mood is neutral, speech pattern normal, behavior controlled. Sitter with her for safety. (4) Intentional drug overdose Status: Acute Problem Text: See above. Plan/VTE VTE Prophylaxis Ordered?: Yes Plan/Urinary Catheter Reason for insertion/continuin: Critical Pt monitoring Plan Diagnostics: MRI (foot) VS, I&O, 24H, Fishbone Vital Signs/I&O Vital Signs Date Time Temp Pulse Resp B/P (MAP) Pulse Ox O2 Delivery O2 Flow Rate FiO2 01/06/17 08:49 18 01/06/17 08:18 163/72 01/06/17 06:00 96.9 81 93 01/05/17 21:00 Room Air 01/03/17 06:00 95 01/03/17 00:00 2.0 I&O- Last 24 Hours up to 6 AM 01/06/17 06:00 Intake Total 2860 ml Output Total 5900 ml Balance -3040 ml Laboratory Data 24H LABS Laboratory Tests 2 01/05/17 11:13: Bedside Glucose (Misc Panel) 385H 01/05/17 16:26: Bedside Glucose (Misc Panel) 389H 01/05/17 20:11: Bedside Glucose (Misc Panel) 332H 01/06/17 06:46: Anion Gap 7L, Glomerular Filtration Rate > 60.0, Blood Urea Nitrogen 16, Creatinine 0.56, Sodium Level 135L, Potassium Level 3.9, Chloride Level 101, Carbon Dioxide Level 27, Calcium Level 8.9, Aspartate Amino Transf (AST/SGOT) 18 , Alanine Aminotransferase (ALT/SGPT) 19, Alkaline Phosphatase 113, Total Bilirubin 0.2, Total Protein 6.2L, Albumin 2.2L, Albumin/Globulin Ratio 0.55L CBC/BMP Laboratory Tests 01/06/17 06:46 Red Blood Count 3.93 L, Mean Corpuscular Volume 86.6, Mean Corpuscular Hemoglobin 28.9, Mean Corpuscular Hemoglobin Concent 33.3, Red Cell Distribution Width 14.1, Calcium Level 8.9, Aspartate Amino Transf (AST/SGOT) 18 , Alanine Aminotransferase (ALT/SGPT) 19, Alkaline Phosphatase 113, Total Bilirubin 0.2, Total Protein 6.2 L, Albumin 2.2 L JESUS VELAZQUEZ PA-C Jan 06, 2017 09:55
[2017-01-06] MEDS: SODIUM CHLORIDE 0.9% INJ 10 ML SYR IV SCH (15:31)
[2017-01-06] MEDS ORDERED: VANCOMYCIN HCL 500 MG/10 ML VIAL (J3370) As Ordered ONE (16:58)
[2017-01-06] MEDS ORDERED: LIDOCAINE 2% MDV 20 ML VIAL As Ordered ONE (16:58)
[2017-01-06] MEDS ORDERED: BUPIVACAINE HCL 0.5% 30 ML VIAL As Ordered ONE (16:58)
[2017-01-06] MEDS ORDERED: VANCOMYCIN 1000 MG/20 ML VIAL (J3370) As Ordered ONE (16:58)
[2017-01-06] MEDS ORDERED: TOBRAMYCIN SULF 1.2 GM VIAL As Ordered ONE (17:42)
[2017-01-06] MEDS ORDERED: MIDAZOLAM INJ 2 MG/2 ML VIAL (J2250) As Ordered ONE (17:58)
[2017-01-06] MEDS ORDERED: fentaNYL 100 MCG/2 ML INJECTION (J3010) As Ordered ONE (17:58)
[2017-01-06] MEDS ORDERED: PROPOFOL 200 MG/20 ML VIAL As Ordered ONE (17:58)
--- NOTE | 2017-01-06 17:58 | REP ---
LEFT PICC LINE: The procedure was performed by LEONID Fernandez under the direct supervision of Dr. García. The procedure along with its risks, benefits, and complications were discussed with the patient. Informed consent was obtained both verbally and written. The left arm was prepped and draped in the usual sterile fashion. A procedural time-out was performed to ensure the correct patient, site and procedure were being performed. Under ultrasound guidance the left basilic vein was punctured. A thin guidewire was introduced, the needle removed and a tear-away sheath was placed. Under fluoroscopic observation via the peel-away sheath, a 4.5-Icelandic 44 cm single lumen PICC line was advanced to the level of the superior vena cava. The catheter was flushed with heparinized saline and affixed to the patient's skin. The patient tolerated the procedure well. Reviewed by LEONID Huntley 01/22/2017 01:00 PEdited and Signed by Keith García MD 01/22/2017 05:41 P
[2017-01-06] MEDS ORDERED: ONDANSETRON 4MG/2ML VIAL (J2405) IV PRN (19:30)
[2017-01-06] MEDS ORDERED: fentaNYL 100 MCG/2 ML INJECTION (J3010) IV PRN (19:30)
[2017-01-06] MEDS ORDERED: LR 1,000 ML IV SCH (19:30)
[2017-01-06] MEDS: ATORVASTATIN 10 MG TAB PO SCH (20:58)
[2017-01-06] MEDS: HEPARIN SOD (PORCINE) 5000 UNITS/ML VIAL SC SCH (20:59)
--- NOTE | 2017-01-06 21:28 | IPN ---
DATE: 01/06/2017 Iliana seems to be doing well. She is in better spirits today. She is scheduled to go to the operating room. She denies any nausea, vomiting, diarrhea, abdominal pain, fever or chills. Temperature is 98.1, pulse 87, respirations 18, blood pressure 130/59, oxygen saturation 96% on room air. Peripherally inserted central catheter (PICC) line was inserted in the left arm. There was trouble getting an IV in the right arm. Foot was not examined as she was going to the operating room (OR) in an hour. LABORATORY DATA: Sodium 135, potassium 3.9, chloride 101, bicarbonate 27, BUN 17, creatinine 0.5, glucose 268, calcium 8.9, AST 18, ALT 19, alkaline phosphatase 113, CRP is down to 2.39, white count 9.7, hemoglobin 11.4, hematocrit 34.1, platelets 296. IMPRESSION: 1. Chronic osteomyelitis of the right foot 1st toe at site of transmetatarsal GBS on culture 2. Ulceration on the lateral plantar surface of the right foot with culture positive for group B Streptococcus. 3. Insulin-dependent diabetes with poor compliance. PLAN: Continue IV cefazolin. We will wait for results of wound culture to decide on home IV antibiotic. She is currently on cefazolin 1 gram IV every 8 hours. C-reactive protein (CRP) is improving. The patient will definitely benefit from correction placement with wound vacuum assisted closure (VAC) as she has very poor compliance at home and previously has had problems with peripherally inserted central catheter (PICC) lines and wound vacuum assisted closure (VAC) sitting in place. JACOB
--- NOTE | 2017-01-06 22:13 | REP ---
Clinical: Postoperative evaluation. Technique: Portable AP, lateral, oblique views of the right foot. Findings: The patient is status post amputation at the mid metatarsal level. Antibiotic pellets are identified at the first digit amputation site along with drainage catheter and overlying postoperative soft tissue changes. Impression: Status post partial amputation. Signed by Kaiden Buenrostro MD 01/06/2017 10:05 P
[2017-01-07 00:55] VITALS: BP 138/66
[2017-01-07] MEDS: ceFAZolin SOD 1 GM in D5W MINI-BAG PLUS 50 ML IV SCH ×3 (04:18→19:38)
[2017-01-07 04:55] VITALS: BP 160/74
[2017-01-07] MEDS: SODIUM CHLORIDE 0.9% INJ 10 ML SYR IV SCH ×2 (05:37→18:00)
[2017-01-07] MEDS: HEPARIN SOD (PORCINE) 5000 UNITS/ML VIAL SC SCH ×3 (05:38→21:19)
[2017-01-07 06:53] LABS: MEAN CORPUSCULAR HEMOGLOBIN 28.7 pg (27.0-33.0); MEAN CORPUSCULAR HGB CONC 32.5 g/dl (32.0-36.5); MEAN CORPUSCULAR VOLUME 88.4 fl (80.0-96.0); RED CELL DISTRIBUTION WIDTH 14.3 % (11.5-14.5); WHITE BLOOD COUNT 11.4 K/mm3 (4.0-10.0)
[2017-01-07 07:10] LABS: ALBUMIN 2.2 GM/DL (3.2-5.2); ALBUMIN/GLOBULIN RATIO 0.52 (1.00-1.93); ALKALINE PHOSPHATASE 123 U/L (45-117); ALT/SGPT 24 U/L (12-78); ANION GAP 5 MEQ/L (8-16); AST/SGOT 22 U/L (15-37); BILIRUBIN,TOTAL 0.3 MG/DL (0.2-1.0); BLOOD UREA NITROGEN 16 MG/DL (7-18); CALCIUM LEVEL 8.7 MG/DL (8.5-10.1); CARBON DIOXIDE LEVEL 29 MEQ/L (21-32); CHLORIDE LEVEL 103 MEQ/L (98-107); CREATININE FOR GFR 0.62 MG/DL (0.55-1.02); GLOMERULAR FILTRATION RATE > 60.0 (>58); GLUCOSE, FASTING 187 MG/DL (70-105); POTASSIUM SERUM 4.2 MEQ/L (3.5-5.1); SODIUM LEVEL 137 MEQ/L (136-145); TOTAL PROTEIN 6.4 GM/DL (6.4-8.2)
[2017-01-07] MEDS: OXcarbazepine 150 MG TAB PO SCH ×2 (08:14→21:19)
[2017-01-07] MEDS: LISINOPRIL 5 MG TAB PO SCH (08:15)
[2017-01-07] MEDS: hydrOXYzine 25 MG TAB PO SCH ×2 (08:15→21:19)
[2017-01-07] MEDS: DULoxetine 30 MG CAP (CYMBALTA) PO SCH (08:15)
[2017-01-07] MEDS: HumaLOG INSULIN (NovoLOG) PER UNIT SC SCH ×3 (08:17→17:57)
[2017-01-07] MEDS: LEVEMIR (INSULIN DETEMIR) 1 UNITS/0.01ML SC SCH ×2 (08:18→21:19)
[2017-01-07] MEDS: EUCERIN 120GM CREAM EXT SCH (08:19)
[2017-01-07 08:55] VITALS: BP 135/66
--- NOTE | 2017-01-07 12:29 | IPNPDOC ---
Subjective Date Seen The patient was seen on 01/07/17. Subjective Chief Complaint/HPI The patient is a 51-year-old female admitted with a reason for visit of Intentional Drug Overdose. Events since last encounter No new concerns or complaints. Constitutional: Denies: Chills, Fever Pulmonary: Denies: Dyspnea, Cough Cardiovascular: Denies: Chest Pain, Palpitations Gastrointestinal: Denies: Nausea, Vomiting, Abdominal Pain, Diarrhea, Constipation Genitourinary: Denies: Dysuria Objective Physical Examination General Exam: Positive: Alert, No Acute Distress Chest Exam: Positive: Clear to auscultation, Normal air movement Heart Exam: Positive: Rate Normal, Normal S1, Normal S2 Abdomen Exam: Positive: Normal bowel sounds, Soft, Negative: Tenderness Extremity Exam: Positive: Other (s/p left BKA; right forefoot amputation. Wound vac in place. No surrounding erythema, swelling) Neuro Exam: Positive: Normal Speech Psych Exam: Positive: Mental status NL Assessment /Plan Problems (1) Osteomyelitis Status: Chronic Response to Treatment: Worse, Uncontrolled Problem Specific Plan: Consult Specialist Problem Text: 01/07 - Continue IV abx via PICC line and wound vac. Debridement was performed yesterday by Dr. Alicea. 01/06 - plans for debridement with Dr Alicea later today, Dr Thomas also saw the pt and recommends PICC placement with 6 w IV Abx. 01/05 - MRI R foot reveals persistent OM similar c/w 09/12. Pt reports that surgery previuosly done by Dr Livingston, she now follows with him for wound care in [place]. She has not been seen locally recently. Consult Dr Alicea. 01/[address] Thomas and 1st generation cephalosporin has been ordered. MRI scheduled for tomorrow to better define extent of infection Will need consult with Dr. Alicea. He has seen her before. Anticipate she will need additional surgery. (2) Intentional drug overdose Status: Acute Problem Text: I attempted to page Dr. Rosas who saw her initially in consultation. She did not call me back. We need to find out if she is stable from psych standpoint to go to skilled nursing for IV abx and wound vac if unable to transfer to [facility] on wound vac and IV abx. (Of note: If needs to go to [place] - patient requests [facility]ig[facility] she has been there before and there is a counselor there she thinks she will be able to talk to) (3) IDDM (insulin dependent diabetes mellitus) Status: Chronic Response to Treatment: Stable, Uncontrolled Problem Specific Plan: Monitor Clinically Problem Text: 01/07 - Blood sugars are still high. Increase Levemir to 35U QHS and continue levemir 50U qAM. (KES) 01/05/17: Glucose has been consistently elevated in the high 300s. It appears she is normally on Toujeo 63U BID and she has only been on levemir 50U daily here, which she received at 0900 today. Will add levemir 25U this evening and will also add an sliding scale - she normally takes novolog 20U QAC and HS at home. (KES) (4) Bipolar affective disorder Status: Chronic Problem Specific Plan: Consult Specialist Problem Text: 01/06 - once cleared by Dr Alicea, should talk with Psych about transfer to [facility], later today or tomorrow. 01/05 - Per Dr. Rangel's consult note, patient should be transferred to [facility] once medically cleared; she also recommended restarting her Trileptal 150 mg BID and Cymbalta 30 mg daily - I restarted these today. (KES) 01/04 Psychiatry consult requested. Note recent intentional medication overdose. Today her mood is neutral, speech pattern normal, behavior controlled. Sitter with her for safety. Plan/VTE VTE Prophylaxis Ordered?: Yes Plan/Urinary Catheter Reason for insertion/continuin: Critical Pt monitoring Plan Diagnostics: MRI (foot) Family Medicine Attending Note: I saw and examined Ms. Mckenzie this morning; I d/ w DAVID Palacios and I agree with her note above with noted additions. At this point, patient states she feels well and she is willing to go either to a Senior Care or to [facility]. We will await call back from Dr. Rosas for clearance for discharge to a skilled nursing. I increased her levemir today due to persistently elevated blood glucose. (KES) VS, I&O, 24H, Fishbone Vital Signs/I&O Vital Signs Date Time Temp Pulse Resp B/P (MAP) Pulse Ox O2 Delivery O2 Flow Rate FiO2 01/07/17 08:15 160/74 01/07/17 04:55 98.5 74 16 95 Room Air 01/03/17 06:00 95 01/03/17 00:00 2.0 I&O- Last 24 Hours up to 6 AM 01/07/17 06:00 Intake Total 2580 ml Output Total 1075 ml Balance 1505 ml Laboratory Data 24H LABS Laboratory Tests 2 01/06/17 19:01: Bedside Glucose (Misc Panel) 158H 01/07/17 06:18: Anion Gap 5L, Glomerular Filtration Rate > 60.0, Blood Urea Nitrogen 16, Creatinine 0.62, Sodium Level 137, Potassium Level 4.2, Chloride Level 103, Carbon Dioxide Level 29, Calcium Level 8.7, Aspartate Amino Transf (AST/SGOT) 22 , Alanine Aminotransferase (ALT/SGPT) 24, Alkaline Phosphatase 123H, Total Bilirubin 0.3, Total Protein 6.4, Albumin 2.2L, Albumin/Globulin Ratio 0.52L CBC/BMP Laboratory Tests 01/07/17 06:18 Red Blood Count 3.90 L, Mean Corpuscular Volume 88.4, Mean Corpuscular Hemoglobin 28.7, Mean Corpuscular Hemoglobin Concent 32.5, Red Cell Distribution Width 14.3, Calcium Level 8.7, Aspartate Amino Transf (AST/SGOT) 22 , Alanine Aminotransferase (ALT/SGPT) 24, Alkaline Phosphatase 123 H, Total Bilirubin 0.3, Total Protein 6.4, Albumin 2.2 L Microbiology Microbiology 01/06/17 Gram Stain - Final, Resulted 01/06/17 Wound Culture, Resulted Pending 01/06/17 Anaerobic Culture, Resulted Pending WALE ROSEN PA-C Jan 07, 2017 12:29 NIRALI NELSON MD Jan 07, 2017 14:24
[2017-01-07 12:55] VITALS: BP 138/58
[2017-01-07] MEDS: SODIUM CHLORIDE 0.9% INJ 10 ML SYR IV PRN (14:31)
[2017-01-07] MEDS: ATORVASTATIN 10 MG TAB PO SCH (21:19)
[2017-01-07] MEDS: PERCOCET 5MG/325MG TAB PO PRN (21:20)
[2017-01-07 22:00] VITALS: BP 151/71
[2017-01-08] MEDS: ceFAZolin SOD 1 GM in D5W MINI-BAG PLUS 50 ML IV SCH ×2 (04:32→12:46)
[2017-01-08] MEDS: HEPARIN SOD (PORCINE) 5000 UNITS/ML VIAL SC SCH ×3 (05:24→20:33)
[2017-01-08] MEDS: SODIUM CHLORIDE 0.9% INJ 10 ML SYR IV SCH ×2 (05:25→18:00)
[2017-01-08 06:00] VITALS: BP 162/63
[2017-01-08] MEDS: hydrOXYzine 25 MG TAB PO SCH ×2 (09:03→20:32)
[2017-01-08] MEDS: OXcarbazepine 150 MG TAB PO SCH ×2 (09:03→20:32)
[2017-01-08] MEDS: LISINOPRIL 5 MG TAB PO SCH (09:03)
[2017-01-08] MEDS: DULoxetine 30 MG CAP (CYMBALTA) PO SCH (09:03)
[2017-01-08] MEDS: LEVEMIR (INSULIN DETEMIR) 1 UNITS/0.01ML SC SCH ×2 (09:05→20:32)
[2017-01-08] MEDS: HumaLOG INSULIN (NovoLOG) PER UNIT SC SCH ×3 (09:07→18:17)
[2017-01-08] MEDS: EUCERIN 120GM CREAM EXT SCH (09:09)
--- NOTE | 2017-01-08 09:43 | RO ---
DATE OF PROCEDURE: 01/06/2017 PREPROCEDURE DIAGNOSES: 1. Osteomyelitis 1st metatarsal right foot. 2. Stage 4 ulceration lateral aspect right foot. POSTPROCEDURE DIAGNOSES: PROCEDURE: EXCISION OF APPROXIMATELY 1 CM 1ST METATARSAL STUMP DISTAL TO THE INSERTION POINT OF THE TIBIALIS ANTERIOR TENDON, RIGHT FOOT: SURGEON: Justin Alicea DPM REVOLVING INVENTORY CLERK: None. ANESTHESIA: Local monitored anesthesia care (MAC). ESTIMATED BLOOD LOSS: 40 mL. HEMOSTASIS: None. DRAINS/WOUND CARE: [employer] wound vacuum-assisted closure (VAC) at 150 mmHg high-intensity continuous pressure, white and black foam composite with dorsal bridge implantables is approximately ten 5 mm tobramycin OsteoSet beads 1st metatarsal region. DESCRIPTION OF PROCEDURE: On 01/06/2017, this 51-year-old white female was taken from her hospital room to the operating room and placed in the supine position. Following the induction of intravenous (IV) sedation and local and regional anesthesia, the right lower extremity was prepped and draped in the usual aseptic manner. Attention was directed to the patient's right foot. There was noted to be an ulceration on the medial plantar aspect of the foot and the plantar lateral aspect of the foot. Attention was directed to the 1st metatarsal, where the following procedure was performed: EXCISION OF APPROXIMATELY 1 CM 1ST METATARSAL STUMP DISTAL TO THE INSERTION POINT OF THE TIBIALIS ANTERIOR TENDON, RIGHT FOOT: Attention was directed to the patient's foot, where there was noted to be an ulcer on the plantar surface of the foot. At this time, an incision was placed from the ulcer site and extending in a medial direction on to the 1st metatarsal shaft. A flap was created straight to bone, and the bone was exposed. Approximately 1.5 cm of bone was removed from the stump of the 1st metatarsal. The bone remaining was firm to the touch. It did not show any signs of necrosis or osteomyelitis. The medullary canal was also intact. The wound was flushed with copious amount of dilute tobramycin solution with a low-pressure pulse lavage system. Attention was directed to the lateral surface of the foot, and the following procedure was performed: EXCISIONAL DEBRIDEMENT THROUGH FASCIA, RIGHT FOOT: Attention was directed to the patient's foot; and utilizing a sterile scalpel and curette, the wound was incisionally debrided through a portion of the fascia. Necrotic tissue was removed. The wound was flushed with a low-pressure pulse lavage system with dilute tobramycin solution. Attention was directed towards bandaging, where a white composite foam dressing was placed in the 1st metatarsal part of the wound, and a [place] black foam was constructed over the foot extending onto the dorsal aspect and over the medial and lateral aspects with a dorsal bridge. The wound VAC was turned on. No leaks were detected, and the bag was running satisfactorily at 150 mmHg high-intensity continuous. The wound on the medial side after debridement measured 4.5 cm x 2 cm x 1 cm in depth. The lateral ulcer measured 3 cm x 2 cm x 0.2 cm in depth. The patient will have wound VAC changed starting on Thursday for Thursday, Thursday , and Thursday. The patient's questions were answered. HONGD
--- NOTE | 2017-01-08 12:06 | IPNPDOC ---
Subjective Date Seen The patient was seen on 01/08/17. Subjective Chief Complaint/HPI The patient is a 51-year-old female admitted with a reason for visit of Intentional Drug Overdose. Events since last encounter Pt doing well. She has no new concerns. Constitutional: Denies: Chills, Fever ENT: Denies: Head Aches Pulmonary: Denies: Dyspnea, Cough Cardiovascular: Denies: Chest Pain, Palpitations Gastrointestinal: Denies: Nausea, Vomiting, Diarrhea Neurological: Denies: Weakness Psych: Reports: Mood Normal Objective Physical Examination General Exam: Positive: Alert, No Acute Distress ENT Exam: Positive: Mucous membr. moist/pink Chest Exam: Positive: Clear to auscultation, Normal air movement Heart Exam: Positive: Rate Normal, Normal S1, Normal S2 Abdomen Exam: Positive: Normal bowel sounds, Soft, Negative: Tenderness Extremity Exam: Positive: Other (s/p left BKA; right forefoot amputation. Wound vac in place. No surrounding erythema, swelling) Neuro Exam: Positive: Normal Speech Psych Exam: Positive: Mental status NL Assessment /Plan Problems (1) Intentional drug overdose Status: Acute Problem Text: 01/08 - Spoke with [facility], [place] reports that Dr Rosas is planning to see the pt today. If she doesn't need to go to [facility], PFS to coordinate placement. 01/07 I attempted to page Dr. Rosas who saw her initially in consultation. She did not call me back. We need to find out if she is stable from psych standpoint to [facility]x and wound vac if unable to transfer to [facility] on wound vac and IV abx. (Of note: If needs to go to [place] - patient requests [facility]ig[facility] she has been there before and there is a counselor there she thinks she will be able to talk to) (2) Osteomyelitis Status: Chronic Response to Treatment: Worse, Uncontrolled Problem Specific Plan: Consult Specialist Problem Text: 01/[address] as well as Wound vac, mgmt per ID/Podiatry 01/07 - Continue IV abx via PICC line and wound vac. Debridement was performed yesterday by Dr. Alicea. 01/06 - plans for debridement with Dr Alicea later today, Dr Thomas also saw the pt and recommends PICC placement with 6 w IV Abx. 01/05 - MRI R foot reveals persistent OM similar c/w 09/12. Pt reports that surgery previuosly done by Dr Livingston, she now follows with him for wound care in [place]. She has not been seen locally recently. Consult Dr Alicea. 01/[address] Thomas and 1st generation cephalosporin has been ordered. MRI scheduled for tomorrow to better define extent of infection Will need consult with Dr. Alicea. He has seen her before. Anticipate she will need additional surgery. (3) IDDM (insulin dependent diabetes mellitus) Status: Chronic Response to Treatment: Stable, Uncontrolled Problem Specific Plan: Monitor Clinically Problem Text: 01/07 - Blood sugars are still high. Increase Levemir to 35U QHS and continue levemir 50U qAM. (KES) 01/05/17: Glucose has been consistently elevated in the high 300s. It appears she is normally on Toujeo 63U BID and she has only been on levemir 50U daily here, which she received at 0900 today. Will add levemir 25U this evening and will also add an sliding scale - she normally takes novolog 20U QAC and HS at home. (KES) (4) Bipolar affective disorder Status: Chronic Problem Specific Plan: Consult Specialist Problem Text: 01/06 - once cleared by Dr Alicea, should talk with Psych about transfer to [facility], later today or tomorrow. 01/05 - Per Dr. Rangel's consult note, patient should be transferred to [facility] once medically cleared; she also recommended restarting her Trileptal 150 mg BID and Cymbalta 30 mg daily - I restarted these today. (KES) 01/04 Psychiatry consult requested. Note recent intentional medication overdose. Today her mood is neutral, speech pattern normal, behavior controlled. Sitter with her for safety. Plan/VTE VTE Prophylaxis Ordered?: Yes Plan/Urinary Catheter Reason for insertion/continuin: Critical Pt monitoring Plan Diagnostics: MRI (foot) Family Medicine Attending Note: I saw Ms. Mckenzie this morning; I d/w DAVID Raymundo and I agree with her note above. We will await Psychiatry's recommendations and then determine disposition. (KES) VS, I&O, 24H, Fishbone Vital Signs/I&O Vital Signs Date Time Temp Pulse Resp B/P (MAP) Pulse Ox O2 Delivery O2 Flow Rate FiO2 01/08/17 09:03 162/63 01/08/17 06:00 97.2 80 19 93 Room Air 01/03/17 06:00 95 01/03/17 00:00 2.0 I&O- Last 24 Hours up to 6 AM 01/08/17 06:00 Intake Total 1010 ml Output Total 1575 ml Balance -565 ml Laboratory Data 24H LABS Laboratory Tests 2 01/07/17 16:51: Bedside Glucose (Misc Panel) 296H 01/07/17 20:21: Bedside Glucose (Misc Panel) 253H 01/08/17 06:26: Bedside Glucose (Misc Panel) 172H Microbiology Microbiology 01/06/17 Gram Stain - Final, Resulted 01/06/17 Wound Culture, Resulted Pending 01/06/17 Anaerobic Culture, Resulted Pending JESUS VELAZQUEZ PA-C Jan 08, 2017 12:06 NIRALI NELSON MD Jan 08, 2017 16:42
[2017-01-08 14:00] VITALS: BP 180/84
[2017-01-08] MEDS: SODIUM CHLORIDE 0.9% INJ 10 ML SYR IV PRN (14:21)
[2017-01-08 16:29] VITALS: BP 158/72
[2017-01-08] MEDS: FUROSEMIDE 40 MG TAB PO SCH (18:18)
[2017-01-08] MEDS: TRIAMCINOLONE ACET 0.1% CREAM 80 GM EXT SCH (20:32)
[2017-01-08] MEDS: ATORVASTATIN 10 MG TAB PO SCH (20:32)
[2017-01-08] MEDS: PERCOCET 5MG/325MG TAB PO PRN (20:33)
[2017-01-08 22:00] VITALS: BP 128/86
[2017-01-09] MEDS: SODIUM CHLORIDE 0.9% INJ 10 ML SYR IV SCH ×2 (04:42→17:44)
[2017-01-09] MEDS: HEPARIN SOD (PORCINE) 5000 UNITS/ML VIAL SC SCH ×3 (04:42→21:01)
[2017-01-09 06:00] VITALS: BP 132/61
--- NOTE | 2017-01-09 06:32 | IPN ---
DATE OF SERVICE: 01/08/2017 Iliana seems to be doing fairly well. She had a biopsy of the right first metatarsal done on 01/06. Cultures are still pending, but preliminary cultures were positive for group B Streptococcus and a Staphylococcus species. Anaerobic culture is so far negative. She had an excision of approximately 1 cm of the first metatarsal stump. Also, the ulcer on the plantar surface of the foot was debrided. PHYSICAL EXAMINATION: Temperature is 98, pulse 82, respirations 18, blood pressure 180/84, oxygen saturation 96% on room air. Heart: Normal S1, S2. No murmurs. Lungs are clear. Abdomen: Morbidly obese, soft, nontender. Extremities: Right foot ulcer on the first metatarsal stump and an ulcer on the plantar aspect of the foot improving, decreasing drainage. Transmetatarsal amputation. LABORATORY DATA: CRP is 2.3, sodium 137, potassium 4.2, chloride 103, bicarbonate 29. White count 11.4, hemoglobin 11.2, hematocrit 34.5, platelets 281. IMPRESSION: 1. Chronic osteomyelitis of right foot on intravenous (IV) cefazolin. The dose should be increased to 2 grams every 8 hours based on body weight. Cultures so far positive for group B Streptococcus (GBS). Depending on results, will adjust IV antibiotics. She will need 6 weeks of IV antibiotic and wound vacuum-assisted closure (VAC). 2. Intentional overdose. Being followed up with Dr. Rosas. If cleared by Dr. Rosas, she could go to a shelter to continue care of osteomyelitis with IV antibiotics and wound VAC.
[2017-01-09] MEDS: FUROSEMIDE 40 MG TAB PO SCH (08:09)
[2017-01-09] MEDS: hydrOXYzine 25 MG TAB PO SCH ×2 (08:09→21:00)
[2017-01-09] MEDS: DULoxetine 30 MG CAP (CYMBALTA) PO SCH (08:09)
[2017-01-09] MEDS: LISINOPRIL 5 MG TAB PO SCH (08:10)
[2017-01-09] MEDS: OXcarbazepine 150 MG TAB PO SCH ×2 (08:10→21:00)
[2017-01-09] MEDS: HumaLOG INSULIN (NovoLOG) PER UNIT SC SCH ×3 (08:10→17:42)
[2017-01-09] MEDS: LEVEMIR (INSULIN DETEMIR) 1 UNITS/0.01ML SC SCH ×2 (08:11→21:01)
[2017-01-09] MEDS: TRIAMCINOLONE ACET 0.1% CREAM 80 GM EXT SCH ×2 (08:12→21:01)
[2017-01-09] MEDS: EUCERIN 120GM CREAM EXT SCH (08:12)
--- NOTE | 2017-01-09 11:54 | IPNPDOC ---
Subjective Date Seen The patient was seen on 01/09/17. Subjective Chief Complaint/HPI The patient is a 51-year-old female admitted with a reason for visit of Intentional Drug Overdose. Events since last encounter No complaints Constitutional: Denies: Chills, Fever Pulmonary: Denies: Dyspnea, Cough Cardiovascular: Denies: Chest Pain, Palpitations, Orthopnea Gastrointestinal: Denies: Nausea, Vomiting, Abdominal Pain, Diarrhea, Constipation Objective Physical Examination General Exam: Positive: Alert, No Acute Distress ENT Exam: Positive: Mucous membr. moist/pink Chest Exam: Positive: Clear to auscultation, Normal air movement Heart Exam: Positive: Rate Normal, Normal S1, Normal S2 Abdomen Exam: Positive: Normal bowel sounds, Soft, Negative: Tenderness Extremity Exam: Positive: Other (s/p left BKA; right forefoot amputation. Wound vac in place. No surrounding erythema, swelling) Neuro Exam: Positive: Normal Speech Psych Exam: Positive: Mental status NL Assessment /Plan Problems (1) Intentional drug overdose Status: Acute Problem Text: 01/09 - Dr. Rosas is supposed to be coming in to comment on her stability to go to [place] 01/08 - Spoke with [facility], [place] reports that Dr Rosas is planning to see the pt today. If she doesn't need to go to [facility], PFS to coordinate placement. 01/07 I attempted to page Dr. Rosas who saw her initially in consultation. She did not call me back. We need to find out if she is stable from psych standpoint to go to senior care for IV abx and wound vac if unable to transfer to [facility] on wound vac and IV abx. (Of note: If needs to go to [place] - patient requests [facility]ig[facility] she has been there before and there is a counselor there she thinks she will be able to talk to) (2) Osteomyelitis Status: Chronic Response to Treatment: Worse, Uncontrolled Problem Specific Plan: Consult Specialist Problem Text: 01/09 - Per Dr. Mcdonnell and Dr. Thomas 01/[address] as well as Wound vac, mgmt per ID/Podiatry 01/07 - Continue IV abx via PICC line and wound vac. Debridement was performed yesterday by Dr. Alicea. 01/06 - plans for debridement with Dr Alicea later today, Dr Thomas also saw the pt and recommends PICC placement with 6 w IV Abx. 01/05 - MRI R foot reveals persistent OM similar c/w 09/12. Pt reports that surgery previuosly done by Dr Livingston, she now follows with him for wound care in [place]. She has not been seen locally recently. Consult Dr Alicea. 01/[address] Thomas and 1st generation cephalosporin has been ordered. MRI scheduled for tomorrow to better define extent of infection Will need consult with Dr. Alicea. He has seen her before. Anticipate she will need additional surgery. (3) IDDM (insulin dependent diabetes mellitus) Status: Chronic Response to Treatment: Stable, Uncontrolled Problem Specific Plan: Monitor Clinically Problem Text: 01/09 - blood sugars have improved with increase in Levemir 01/07 - Blood sugars are still high. Increase Levemir to 35U QHS and continue levemir 50U qAM. (KES) 01/05/17: Glucose has been consistently elevated in the high 300s. It appears she is normally on Toujeo 63U BID and she has only been on levemir 50U daily here, which she received at 0900 today. Will add levemir 25U this evening and will also add an sliding scale - she normally takes novolog 20U QAC and HS at home. (KES) (4) Bipolar affective disorder Status: Chronic Problem Specific Plan: Consult Specialist Problem Text: 01/06 - once cleared by Dr Alicea, should talk with Psych about transfer to [facility], later today or tomorrow. 01/05 - Per Dr. Rangel's consult note, patient should be transferred to [facility] once medically cleared; she also recommended restarting her Trileptal 150 mg BID and Cymbalta 30 mg daily - I restarted these today. (KES) 01/04 Psychiatry consult requested. Note recent intentional medication overdose. Today her mood is neutral, speech pattern normal, behavior controlled. Sitter with her for safety. Plan/VTE VTE Prophylaxis Ordered?: Yes Plan/Urinary Catheter Reason for insertion/continuin: Critical Pt monitoring Plan Diagnostics: MRI (foot) Family Medicine Attending Note: I saw and examined Ms. Mckenzie this morning; I agree with Wale Rosen's note above. I met with Dr. Rosas and made her aware of the case - she told me she will see the patient today and leave a note. I also d/w [facility] - they have not started the process of getting a bed a senior care yet. (KES) VS, I&O, 24H, Fishbone Vital Signs/I&O Vital Signs Date Time Temp Pulse Resp B/P (MAP) Pulse Ox O2 Delivery O2 Flow Rate FiO2 01/09/17 08:10 132/61 01/09/17 06:00 97.6 82 16 95 Room Air 01/03/17 06:00 95 01/03/17 00:00 2.0 I&O- Last 24 Hours up to 6 AM 01/09/17 06:00 Intake Total 2295 ml Output Total 2225 ml Balance 70 ml Laboratory Data 24H LABS Laboratory Tests 2 01/08/17 12:08: Bedside Glucose (Misc Panel) 248H 01/08/17 17:43: Bedside Glucose (Misc Panel) 274H 01/08/17 20:16: Bedside Glucose (Misc Panel) 274H 01/09/17 07:27: Bedside Glucose (Misc Panel) 157H 01/09/17 07:29: C-Reactive Protein, Quantitative 3.34H Microbiology Microbiology 01/06/17 Gram Stain - Final, Resulted 01/06/17 Wound Culture - Preliminary, Resulted Strep Agalactiae Group B 01/06/17 Anaerobic Culture - Final, Resulted WALE ROSEN PA-C Jan 09, 2017 11:54 NIRALI NELSON MD Jan 09, 2017 12:11
[2017-01-09 14:00] VITALS: BP 145/65
--- NOTE | 2017-01-09 15:41 | PHACANCOPD ---
PHARMACY VANCOMYCIN DOSING Pt Demographics Demographics Patient Age:51 , Weight:120.500 , Gender: female Adjusted Body Weight Date: 01/09/17, Adjusted Body Weight: [78] Kg Events Past 24 Hours Events Past 24 Hours: NO: Dialysis, Diuretic Therapy, Change in CrCl, Fever, Elevation in WBC, Pending Diagnostics, Pending Procedures, Other Vancomycin Vancomycin indication: osteomyelitis Vancomycin Target Ranges: 15-20 mcg/ml Vancomycin Load Y/N: No Load Dose Date Time Vancomycin Load Dose: Date: Time: Vancomycin Dose Date: 01/09/17. Current Vancomycin Dose: [1g IV q8h @16] Intermittent Dosing?: No Labs Labs Item Value Date Time White Blood Count 8.9 K/mm3 01/05/17 0536 White Blood Count 9.7 K/mm3 01/06/17 0646 White Blood Count 11.4 K/mm3 H 01/07/17 0618 Creatinine 0.56 MG/DL 01/06/17 0646 Creatinine 0.62 MG/DL 01/07/17 0618 Micro Microbiology 01/06/17 Gram Stain - Final, Complete 01/06/17 Wound Culture - Final, Complete Strep Agalactiae Group B Corynebacterium Species 01/06/17 Anaerobic Culture - Final, Complete Creatinine Clearance Date:01/09/17. Creatinine Clearance: [>100 ml/min]. Assessment and Plan Maintaining Current Dose?: Yes Reason for dose change: No Dose Change Pharmacist Note Pharmacist Note Date: 01/09/17. Pharmacist note: pt has been started on vancomycin for osteomyelitis, she was previously treated with Ancef 2g IV q8h. R foot wound culture is positive for Strep grp B and corynebacterium. Pt also has a previous Hx of MRSA (R foot). Based on prior vancomycin dosing, I will start her on 1g q8h. I will order a trough when she is at steady state, she was previously maintained on 1g IV q12h with a SCr of ~1. SCr is currently ~0.6. I will continue to monitor in the meantime. Colby Mulligan Pharm.D. Jan 09, 2017 15:41
[2017-01-09] MEDS: VANCOMYCIN HCL 1,000 MG, VIAL MATE ADAPTER 1 EACH in D5W 250 ML IV SCH (16:14)
[2017-01-09] MEDS: ATORVASTATIN 10 MG TAB PO SCH (21:00)
[2017-01-09] MEDS: PERCOCET 5MG/325MG TAB PO PRN (21:11)
[2017-01-09 22:00] VITALS: BP 163/76
--- NOTE | 2017-01-09 22:21 | IPN ---
DATE: 01/09/2017 CHIEF COMPLAINT: Patient seen for evaluation of a wound on her right foot. She has had osteomyelitis of the 1st metatarsal of the right foot and a stage IV ulcer on her plantar lateral aspect of the right foot, treated with surgical debridement, insertion of antibiotic beads and wound VAC therapy. She is seen today for evaluation. The patient states she is doing well and has had no pain of her right foot. She denies shortness of breath or chest pain. Evaluation of the patient reveals the wound VAC functioning satisfactorily. The wound VAC was removed, and the wound was evaluated. The ulcer on the medial side measures 5 cm from medial to lateral, 1.1 cm at its widest more lateral margin and 1 cm in depth with antibiotic beads present in the wound. The lateral plantar ulcer measures 2.2 cm x 1.4 cm x 0.2 cm in depth with emerging good granulation tissue. Laboratory studies were reviewed. White count is elevated today to 11.4. C-reactive protein also elevated at 3.34. Microbiology reveals Group B Strep from the bone culture. X-rays reveals an osteotomy through the 1st metatarsal with antibiotic beads present in the margin. The bone displays no signs of osteomyelitis. The remaining fragment of the 1st metatarsal measures approximately 1.9 cm with the tibialis anterior tendon intact. ASSESSMENT: Osteomyelitis 1st metatarsal and stage IV ulceration plantar lateral aspect right foot. PLAN: The wound VAC was removed, and the wound was evaluated. Additional wound VAC was applied. This can be converted to calcium alginate dressings or foam dressing, depending on the amount of discharge once granulation tissue has been achieved. Since the wound is showing good signs of granulating, this may only require 3 to 5 additional days. Her questions are answered. Her antibiotic control is being covered by Dr. William MD. JACOB
[2017-01-10] MEDS: ONDANSETRON 4MG/2ML VIAL (J2405) IV PRN ×3 (00:08→15:43)
[2017-01-10] MEDS: VANCOMYCIN HCL 1,000 MG, VIAL MATE ADAPTER 1 EACH in D5W 250 ML IV SCH ×3 (00:08→15:43)
--- NOTE | 2017-01-10 03:11 | IPN ---
DATE OF SERVICE: 01/09/2017 Iliana seems to doing fairly well. She states that the Lasix did help with diuresing and decreasing lower extremity edema. She also complains of persistent itching in spite of being on Atarax twice a day and triamcinolone cream. She has had no fever or chills. She has a wound vacuum-assisted closure (VAC). Dr. Steve changed the VAC today, but I was not able to see the wound. LABORATORY DATA: White count is 11.4, hemoglobin 11.2, hematocrit 34.5, platelets 281, CRP 3.34. Sodium 137, potassium 4.2, chloride 103, bicarbonate 29, BUN 16, creatinine 0.62, glucose 187. Wound culture had group B Streptococcus and Corynebacterium species. PHYSICAL EXAMINATION: Temperature is 97.6, pulse 83, respirations 16, blood pressure 132/61, oxygen saturation 95% on room air. Heart: Normal S1, S2 with no murmurs. Lungs are clear. Abdomen: Morbidly obese, soft, nontender. Extremities: Trace edema. She has multiple scratch magdaleno on the abdomen, upper back, arms, antecubital area. There are no rashes between finger webs or toe webs. IMPRESSION: 1. Chronic osteomyelitis of the right foot first metatarsal with group B Streptococcus on culture and Corynebacterium probably a contaminant. The patient probably allergic to penicillin/cefazolin. She had been on Augmentin as an outpatient and currently on cefazolin. Will switch her to intravenous (IV) vancomycin 1 gram every 12 hours to finish at the alf. She will need 5 weeks of IV antibiotics. If the alf will not take a wound VAC, Dr. Alicea agreed to switch her dressing to a draw pack. This has been conveyed to case management and Shira, nurse in charge. 2. Rash. Probably penicillin/cefazolin allergy. Continue triamcinolone, Atarax. Will switch to vancomycin. 3. Insulin-dependent diabetes. Better controlled. Sugars are between 157 and 250. PLAN: IV vancomycin, pharmacy consult for vancomycin levels. Once transferred to alf, she will not need the wound VAC.
--- NOTE | 2017-01-10 04:49 | IPN ---
DATE OF SERVICE: 01/09/2017 The patient today states that she is feeling better. She understands that she will be going to a halfway where she can have the appropriate long-term antibiotics she needs for her osteomyelitis. She says she is fine with that. She is just happy that she is getting the appropriate treatment. She is denying that she is suicidal at this point. Therefore, I do not feel that the patient needs to be transferred to the psychiatric unit. She is not a danger to herself at this point. She also does not need a sitter any longer. Please reconsult if further problems arise.
[2017-01-10] MEDS: SODIUM CHLORIDE 0.9% INJ 10 ML SYR IV SCH ×2 (05:43→18:08)
[2017-01-10] MEDS: HEPARIN SOD (PORCINE) 5000 UNITS/ML VIAL SC SCH ×3 (05:44→21:55)
[2017-01-10 05:56] LABS: BASO # 0.1 K/mm3 (0.0-0.2); BASO % 0.7 % (0.0-1.0); EOS # 0.5 K/mm3 (0.0-0.50); EOS % 3.8 % (0.0-3.0); LARGE UNSTAINED CELL # 0.1 K/mm3 (0.0-0.4); LARGE UNSTAINED CELL % 1.1 % (0.0-4.0); LYMPH # 4.6 K/mm3 (1.5-4.5); MEAN CORPUSCULAR HEMOGLOBIN 28.7 pg (27.0-33.0); MEAN CORPUSCULAR VOLUME 86.8 fl (80.0-96.0); MONO # 0.6 K/mm3 (0.0-0.8); MONO % 5.1 % (0.0-5.0); NEUTROPHILS # 6.3 K/mm3 (1.8-7.7); NEUTROPHILS % 52.2 % (36.0-66.0); PLATELET COUNT, AUTOMATED 259 k/mm3 (150-450); RED CELL DISTRIBUTION WIDTH 14.4 % (11.5-14.5)
[2017-01-10 06:00] VITALS: BP 115/65
[2017-01-10] MEDS: LEVEMIR (INSULIN DETEMIR) 1 UNITS/0.01ML SC SCH ×2 (08:32→21:56)
[2017-01-10] MEDS: HumaLOG INSULIN (NovoLOG) PER UNIT SC SCH ×3 (08:32→17:30)
[2017-01-10] MEDS: LISINOPRIL 5 MG TAB PO SCH (08:34)
[2017-01-10] MEDS: OXcarbazepine 150 MG TAB PO SCH ×2 (08:34→21:55)
[2017-01-10] MEDS: FUROSEMIDE 40 MG TAB PO SCH (08:34)
[2017-01-10] MEDS: hydrOXYzine 25 MG TAB PO SCH ×2 (08:34→21:55)
[2017-01-10] MEDS: DULoxetine 30 MG CAP (CYMBALTA) PO SCH (08:34)
[2017-01-10] MEDS: TRIAMCINOLONE ACET 0.1% CREAM 80 GM EXT SCH ×2 (08:35→21:00)
[2017-01-10] MEDS: EUCERIN 120GM CREAM EXT SCH (08:35)
[2017-01-10] MEDS: SODIUM CHLORIDE 0.9% INJ 10 ML SYR IV PRN (10:38)
[2017-01-10 14:00] VITALS: BP 140/60
--- NOTE | 2017-01-10 16:27 | IPNPDOC ---
Subjective Date Seen The patient was seen on 01/10/17. Subjective Chief Complaint/HPI The patient is a 51-year-old female admitted with a reason for visit of Intentional Drug Overdose. Objective Physical Examination General Exam: Positive: Alert, No Acute Distress ENT Exam: Positive: Mucous membr. moist/pink Chest Exam: Positive: Clear to auscultation, Normal air movement Heart Exam: Positive: Rate Normal, Normal S1, Normal S2 Abdomen Exam: Positive: Normal bowel sounds, Soft, Negative: Tenderness Extremity Exam: Positive: Other (s/p left BKA; right forefoot amputation. Wound vac in place. No surrounding erythema, swelling) Neuro Exam: Positive: Normal Speech Psych Exam: Positive: Mental status NL Assessment /Plan Problems (1) Osteomyelitis Status: Chronic Response to Treatment: Worse, Uncontrolled Problem Specific Plan: Consult Specialist Problem Text: D2 vanco if longterm does not take wound vac, Pellatier to change to pull back dressing 01/10 afebrile, WBC 12.0 (01/06 9.7)-if remains stable, SNF in AM 01/09 per ID-needs 5W vanco via PICC (changed from cefazolin 2 skin allergic rxn) 01/08 PICC placed 01/07 - Continue IV abx via PICC line and wound vac. Debridement was performed yesterday by Dr. Alicea. 01/06/17 WCX: Organism 1 STREP AGALACTIAE GROUP B QUANTITY OF GROWTH FEW Organism 2 CORYNEBACTERIUM SPECIES QUANTITY OF GROWTH MODERATE 01/05 - MRI R foot reveals persistent OM similar c/w 09/12. Pt reports that surgery previuosly done by Dr Livingston, she now follows with him for wound care in [place]. She has not been seen locally recently. Consult Dr Alicea. (2) Intentional drug overdose Status: Acute Problem Text: 01/09/[address] Rosas, Psychiatry, patient is stable to discharge to longterm without HU admission and safe without a sitter (3) IDDM (insulin dependent diabetes mellitus) Status: Chronic Response to Treatment: Stable, Uncontrolled Problem Specific Plan: Monitor Clinically Problem Text: on Levemir 50/35 01/10 fair control c BG mid 100s-low 200s-increased Levemir 50/35 to 60/35 and + HD metformin 01/07 - Blood sugars are still high. Increase Levemir to 35U QHS and continue levemir 50U qAM. (KES) 01/05/17: Glucose has been consistently elevated in the high 300s. HD: Toujeo 63U BID and she has only been on levemir 50U daily here, which she received at 0900 today. Will add levemir 25U this evening and will also add an sliding scale - she normally takes novolog 20U QAC and HS at home and metfromin 1000 BID (KES) (4) Bipolar affective disorder Status: Chronic Problem Specific Plan: Consult Specialist Problem Text: 01/05 - Per Dr. Rangel's consult note recommended restarting her Trileptal 150 mg BID and Cymbalta 30 mg daily Plan/VTE VTE Prophylaxis Ordered?: Yes Plan/Urinary Catheter Reason for insertion/continuin: Critical Pt monitoring Plan Diagnostics: MRI (foot) VS, I&O, 24H, Fishbone Vital Signs/I&O Vital Signs Date Time Temp Pulse Resp B/P (MAP) Pulse Ox O2 Delivery O2 Flow Rate FiO2 01/10/17 14:00 97.2 80 18 140/60 (86) 98 Room Air I&O- Last 24 Hours up to 6 AM 01/10/17 06:00 Intake Total 1910 ml Output Total 3100 ml Balance -1190 ml Laboratory Data 24H LABS Laboratory Tests 2 01/09/17 20:43: Bedside Glucose (Misc Panel) 232H 01/10/17 05:43: White Blood Count 12.0H, Red Blood Count 4.08, Hemoglobin 11.7L, Hematocrit 35.5L, Mean Corpuscular Volume 86.8, Mean Corpuscular Hemoglobin 28.7, Mean Corpuscular Hemoglobin Concent 33.0, Red Cell Distribution Width 14.4, Platelet Count 259, Neutrophils (%) (Auto) 52.2, Lymphocytes (%) (Auto) 37.0, Monocytes ( %) (Auto) 5.1H, Eosinophils (%) (Auto) 3.8H, Basophils (%) (Auto) 0.7, Neutrophils # (Auto) 6.3, Lymphocytes # (Auto) 4.6H, Monocytes # (Auto) 0.6, Eosinophils # (Auto) 0.5, Basophils # (Auto) 0.1, Large Unclassified Cells % 1.1 , Large Unclassified Cells # 0.1 01/10/17 05:46: Bedside Glucose (Misc Panel) 164H 01/10/17 11:56: Bedside Glucose (Misc Panel) 226H CBC/BMP Laboratory Tests 01/10/17 05:43 Red Blood Count 4.08, Mean Corpuscular Volume 86.8, Mean Corpuscular Hemoglobin 28.7, Mean Corpuscular Hemoglobin Concent 33.0, Red Cell Distribution Width 14.4 , Neutrophils (%) (Auto) 52.2, Lymphocytes (%) (Auto) 37.0, Monocytes (%) (Auto ) 5.1 H, Eosinophils (%) (Auto) 3.8 H, Basophils (%) (Auto) 0.7, Neutrophils # ( Auto) 6.3, Lymphocytes # (Auto) 4.6 H, Monocytes # (Auto) 0.6, Eosinophils # ( Auto) 0.5, Basophils # (Auto) 0.1 Microbiology Microbiology 01/06/17 Gram Stain - Final, Complete 01/06/17 Wound Culture - Final, Complete Strep Agalactiae Group B Corynebacterium Species 01/06/17 Anaerobic Culture - Final, Complete Yuri Gonzalez M.D. Jan 10, 2017 16:27
[2017-01-10] MEDS: ATORVASTATIN 10 MG TAB PO SCH (21:55)
[2017-01-10 22:00] VITALS: BP 166/74
[2017-01-11] MEDS: VANCOMYCIN HCL 1,000 MG, VIAL MATE ADAPTER 1 EACH in D5W 250 ML IV SCH ×4 (00:20→23:49)
[2017-01-11] MEDS: PERCOCET 5MG/325MG TAB PO PRN (03:56)
[2017-01-11] MEDS: HEPARIN SOD (PORCINE) 5000 UNITS/ML VIAL SC SCH ×3 (05:31→20:57)
[2017-01-11] MEDS: SODIUM CHLORIDE 0.9% INJ 10 ML SYR IV SCH ×3 (05:31→23:49)
[2017-01-11 05:51] LABS: BASO # 0.1 K/mm3 (0.0-0.2); BASO % 0.9 % (0.0-1.0); EOS # 0.4 K/mm3 (0.0-0.50); EOS % 3.8 % (0.0-3.0); LARGE UNSTAINED CELL # 0.1 K/mm3 (0.0-0.4); LARGE UNSTAINED CELL % 1.1 % (0.0-4.0); LYMPH % 33.8 % (24.0-44.0); MEAN CORPUSCULAR HEMOGLOBIN 28.6 pg (27.0-33.0); MEAN CORPUSCULAR VOLUME 86.6 fl (80.0-96.0); MONO # 0.6 K/mm3 (0.0-0.8); MONO % 4.8 % (0.0-5.0); NEUTROPHILS # 6.4 K/mm3 (1.8-7.7); NEUTROPHILS % 55.5 % (36.0-66.0); PLATELET COUNT, AUTOMATED 276 k/mm3 (150-450); RED CELL DISTRIBUTION WIDTH 14.3 % (11.5-14.5); WHITE BLOOD COUNT 11.4 K/mm3 (4.0-10.0)
[2017-01-11 05:58] LABS: ALBUMIN 2.3 GM/DL (3.2-5.2); ALBUMIN/GLOBULIN RATIO 0.59 (1.00-1.93); ALKALINE PHOSPHATASE 120 U/L (45-117); ALT/SGPT 18 U/L (12-78); ANION GAP 7 MEQ/L (8-16); AST/SGOT 11 U/L (15-37); BILIRUBIN,TOTAL 0.3 MG/DL (0.2-1.0); BLOOD UREA NITROGEN 17 MG/DL (7-18); CALCIUM LEVEL 8.9 MG/DL (8.5-10.1); CARBON DIOXIDE LEVEL 27 MEQ/L (21-32); CHLORIDE LEVEL 100 MEQ/L (98-107); CREATININE FOR GFR 0.65 MG/DL (0.55-1.02); GLOMERULAR FILTRATION RATE > 60.0 (>58); GLUCOSE, FASTING 231 MG/DL (70-105); POTASSIUM SERUM 4.3 MEQ/L (3.5-5.1); SODIUM LEVEL 134 MEQ/L (136-145); TOTAL PROTEIN 6.2 GM/DL (6.4-8.2)
[2017-01-11 06:00] VITALS: BP 130/63
[2017-01-11 06:13] LABS: ERYTHROCYTE SEDIMENTATION RATE 67 mm/hr (0-20)
[2017-01-11] MEDS: NYSTATIN 100,000 UNITS/GM TOPICAL PWD 15 GM TOP PRN (09:27)
[2017-01-11] MEDS: LEVEMIR (INSULIN DETEMIR) 1 UNITS/0.01ML SC SCH ×2 (09:29→20:57)
[2017-01-11] MEDS: hydrOXYzine 25 MG TAB PO SCH ×2 (09:29→20:57)
[2017-01-11] MEDS: FUROSEMIDE 40 MG TAB PO SCH (09:29)
[2017-01-11] MEDS: LISINOPRIL 5 MG TAB PO SCH (09:29)
[2017-01-11] MEDS: DULoxetine 30 MG CAP (CYMBALTA) PO SCH (09:29)
[2017-01-11] MEDS: HumaLOG INSULIN (NovoLOG) PER UNIT SC SCH ×3 (09:31→17:29)
[2017-01-11] MEDS: EUCERIN 120GM CREAM EXT SCH (09:32)
[2017-01-11] MEDS: TRIAMCINOLONE ACET 0.1% CREAM 80 GM EXT SCH ×2 (09:32→20:58)
[2017-01-11] MEDS: ONDANSETRON 4MG/2ML VIAL (J2405) IV PRN ×2 (09:47→15:27)
[2017-01-11] MEDS: OXcarbazepine 150 MG TAB PO SCH ×2 (09:49→20:57)
[2017-01-11] MEDS ORDERED: HEPARIN SOD (PORCINE) 5000 UNITS/ML VIAL As Ordered ONE (20:50)
[2017-01-11] MEDS: ATORVASTATIN 10 MG TAB PO SCH (20:57)
--- NOTE | 2017-01-11 22:59 | DSES ---
DATE OF ADMISSION: 01/02/2017 DATE OF DISCHARGE: (please verify) DISCHARGE DIAGNOSES: 1. Respiratory failure secondary to intentional medication overdose which she states was 15 tablets of 10 mg baclofen and eight tablets of 150 mg Trileptal. 2. Diabetes mellitus type 2, insulin requiring. 3. Chronic lower extremity osteomyelitis, now with new right foot osteomyelitis, status post debridement with wound culture revealing group B streptococcus and corynebacteria. 4. Hypertension. 5. Hyperlipidemia. 6. Bipolar with history of suicide attempts. 7. 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 8. Left upper extremity peripherally inserted central catheter (PICC) placement on . HOSPITAL COURSE: The patient was quickly weaned off of pressor support for her respiratory failure. Initially Dr. Rosas felt that once the patient was cleared, she would require to go inpatient mental health unit (IM), but on reevaluation on 01/10/2017, she felt the patient was stable to be discharged and not go to IMHU. While hospitalized, the patient underwent right foot excision of approximately one cm first metatarsal stump, distal insertion point at the tibialis anterior tendon. Wound culture grew out group B strep and corynebacteria, for which the patient was placed on initially cefazolin, but she developed probable skin allergic reaction to this; therefore, on 01/09, it was switched to vancomycin which she is tolerating well. Per Dr. Thomas's recommendation, she should receive five weeks ago in the [facility] setting via peripherally inserted central catheter (PICC) line. The patient's blood sugars were slowly improved while hospitalized, and on day of discharge to group home facility (SNF), were in the low 200s on Levemir 50 in the morning, 35 at bedtime, with sliding scale NovoLog insulin, and metformin 1000 twice a day. On the day of discharge, the patient remained afebrile. White count was done to 11.4. Erythrocyte sedimentation rate (ESR) was down to 67, and C-reactive protein (CRP) was down to 2.5. Patient and family services (PFS) consult was placed for SNF placement for intravenous (IV) antibiotics, which the patient agrees with.
[2017-01-12] MEDS: SODIUM CHLORIDE 0.9% INJ 10 ML SYR IV PRN ×3 (00:43→23:19)
[2017-01-12] MEDS: PERCOCET 5MG/325MG TAB PO PRN ×3 (02:09→21:02)
[2017-01-12] MEDS: HEPARIN SOD (PORCINE) 5000 UNITS/ML VIAL SC SCH ×3 (05:24→21:01)
[2017-01-12 06:48] VITALS: BP 129/76
[2017-01-12] MEDS: LISINOPRIL 5 MG TAB PO SCH (08:14)
[2017-01-12] MEDS: hydrOXYzine 25 MG TAB PO SCH ×2 (08:14→21:01)
[2017-01-12] MEDS: DULoxetine 30 MG CAP (CYMBALTA) PO SCH (08:14)
[2017-01-12] MEDS: FUROSEMIDE 40 MG TAB PO SCH (08:14)
[2017-01-12] MEDS: OXcarbazepine 150 MG TAB PO SCH ×2 (08:14→21:01)
[2017-01-12] MEDS: LEVEMIR (INSULIN DETEMIR) 1 UNITS/0.01ML SC SCH ×2 (08:16→21:01)
[2017-01-12] MEDS: HumaLOG INSULIN (NovoLOG) PER UNIT SC SCH ×3 (08:16→18:42)
[2017-01-12] MEDS: TRIAMCINOLONE ACET 0.1% CREAM 80 GM EXT SCH ×2 (08:18→21:03)
[2017-01-12] MEDS: VANCOMYCIN HCL 1,000 MG, VIAL MATE ADAPTER 1 EACH in D5W 250 ML IV SCH ×3 (08:19→23:19)
[2017-01-12] MEDS: EUCERIN 120GM CREAM EXT SCH (09:52)
[2017-01-12] MEDS: SODIUM CHLORIDE 0.9% INJ 10 ML SYR IV SCH (17:09)
[2017-01-12 19:26] LABS: ANION GAP 6 MEQ/L (8-16); BLOOD UREA NITROGEN 21 MG/DL (7-18); CALCIUM LEVEL 8.8 MG/DL (8.5-10.1); CARBON DIOXIDE LEVEL 29 MEQ/L (21-32); CHLORIDE LEVEL 100 MEQ/L (98-107); GLOMERULAR FILTRATION RATE > 60.0 (>58); GLUCOSE, FASTING 321 MG/DL (70-105); POTASSIUM SERUM 4.7 MEQ/L (3.5-5.1); SODIUM LEVEL 135 MEQ/L (136-145)
[2017-01-12] MEDS ORDERED: HEPARIN SOD (PORCINE) 5000 UNITS/ML VIAL As Ordered ONE (20:54)
[2017-01-12] MEDS: ATORVASTATIN 10 MG TAB PO SCH (21:01)
[2017-01-13] MEDS: SODIUM CHLORIDE 0.9% INJ 10 ML SYR IV SCH ×2 (00:32→17:06)
[2017-01-13] MEDS: HEPARIN SOD (PORCINE) 5000 UNITS/ML VIAL SC SCH ×3 (05:25→21:00)
[2017-01-13 06:00] VITALS: BP 127/58
[2017-01-13] MEDS: LEVEMIR (INSULIN DETEMIR) 1 UNITS/0.01ML SC SCH ×2 (08:09→21:00)
[2017-01-13] MEDS: hydrOXYzine 25 MG TAB PO SCH ×2 (08:10→20:59)
[2017-01-13] MEDS: DULoxetine 30 MG CAP (CYMBALTA) PO SCH (08:10)
[2017-01-13] MEDS: FUROSEMIDE 40 MG TAB PO SCH (08:10)
[2017-01-13] MEDS: OXcarbazepine 150 MG TAB PO SCH ×2 (08:10→20:59)
[2017-01-13] MEDS: LISINOPRIL 5 MG TAB PO SCH (08:12)
[2017-01-13] MEDS: HumaLOG INSULIN (NovoLOG) PER UNIT SC SCH ×3 (08:12→17:19)
[2017-01-13] MEDS: VANCOMYCIN HCL 1,000 MG, VIAL MATE ADAPTER 1 EACH in D5W 250 ML IV SCH ×2 (08:12→17:05)
[2017-01-13] MEDS: EUCERIN 120GM CREAM EXT SCH (08:13)
[2017-01-13] MEDS: NYSTATIN 100,000 UNITS/GM TOPICAL PWD 15 GM TOP PRN (08:13)
[2017-01-13] MEDS: TRIAMCINOLONE ACET 0.1% CREAM 80 GM EXT SCH ×2 (08:14→21:01)
[2017-01-13] MEDS ORDERED: MIRALAX *UNIT DOSE* 17GM PACKET PO PRN (09:00)
[2017-01-13] MEDS: DOCUSATE SODIUM 100 MG CAP PO SCH ×2 (11:11→20:59)
[2017-01-13] MEDS: ATORVASTATIN 10 MG TAB PO SCH (20:59)
[2017-01-14] MEDS: VANCOMYCIN HCL 1,000 MG, VIAL MATE ADAPTER 1 EACH in D5W 250 ML IV SCH ×4 (00:04→23:49)
[2017-01-14] MEDS: HEPARIN SOD (PORCINE) 5000 UNITS/ML VIAL SC SCH ×3 (05:43→21:06)
[2017-01-14] MEDS: SODIUM CHLORIDE 0.9% INJ 10 ML SYR IV SCH ×2 (05:43→17:20)
[2017-01-14 06:00] VITALS: BP 149/71
[2017-01-14] MEDS: DULoxetine 30 MG CAP (CYMBALTA) PO SCH (08:37)
[2017-01-14] MEDS: FUROSEMIDE 40 MG TAB PO SCH (08:37)
[2017-01-14] MEDS: DOCUSATE SODIUM 100 MG CAP PO SCH ×2 (08:37→21:05)
[2017-01-14] MEDS: OXcarbazepine 150 MG TAB PO SCH ×2 (08:37→21:05)
[2017-01-14] MEDS: hydrOXYzine 25 MG TAB PO SCH ×2 (08:37→21:05)
[2017-01-14] MEDS: LEVEMIR (INSULIN DETEMIR) 1 UNITS/0.01ML SC SCH ×2 (08:38→21:06)
[2017-01-14] MEDS: LISINOPRIL 5 MG TAB PO SCH (08:38)
[2017-01-14] MEDS: HumaLOG INSULIN (NovoLOG) PER UNIT SC SCH ×3 (08:39→17:20)
[2017-01-14] MEDS: TRIAMCINOLONE ACET 0.1% CREAM 80 GM EXT SCH ×2 (08:40→21:07)
[2017-01-14] MEDS: EUCERIN 120GM CREAM EXT SCH (08:40)
[2017-01-14] MEDS: PERCOCET 5MG/325MG TAB PO PRN ×2 (08:50→17:21)
--- NOTE | 2017-01-14 11:36 | IPN ---
DATE OF SERVICE: 01/14/2017 at 11:20 a.m. CHIEF COMPLAINT: The patient is seen at bedside with wound VAC over her right foot. The patient states she is doing well and has noticed considerable reduction in swelling in her foot. The wound VAC was removed. Appropriate time-out and consents were obtained and the attention was directed to the patient's right foot where there was noted to be a wound at the distal medial margin of the foot which had a transmetatarsal amputation in the planar lateral surface of the foot. Utilizing a sterile curet, the necrotic tissue was debrided as well as the fibrinous base and the surrounding hyperkeratotic tissue. The ulcer on the distal medial aspect measures 5 cm from medial to lateral, 2 cm at its widest margin from dorsal to planar and 1 cm in depth. Lateral ulcer measures 2.0 cm x 1.5 cm. Both have a good granulation tissue base. There is no discharge. Resolving erythema and edema have completely resolved. The antibiotic beads are almost dissolved. There is some dorsal irritation of the skin secondary to a wound VAC. A silver alginate dressing was then applied and an order was written to discontinue the wound VAC. The patient's laboratory studies were reviewed. Her white count is 11.4, ESR 67 and her C-reactive protein is 2.47. The patient's questions were answered. The patient's antibiotic care is being covered by infectious disease.
[2017-01-14 14:00] VITALS: BP 135/69
[2017-01-14] MEDS: ATORVASTATIN 10 MG TAB PO SCH (21:05)
[2017-01-14 22:00] VITALS: BP 136/67
[2017-01-15] MEDS: HEPARIN SOD (PORCINE) 5000 UNITS/ML VIAL SC SCH ×3 (05:21→21:07)
[2017-01-15] MEDS: SODIUM CHLORIDE 0.9% INJ 10 ML SYR IV SCH ×2 (05:21→17:41)
[2017-01-15] MEDS: HumaLOG INSULIN (NovoLOG) PER UNIT SC SCH ×3 (08:24→17:41)
[2017-01-15] MEDS: LEVEMIR (INSULIN DETEMIR) 1 UNITS/0.01ML SC SCH ×2 (08:25→21:07)
[2017-01-15] MEDS: LISINOPRIL 5 MG TAB PO SCH (08:28)
[2017-01-15] MEDS: OXcarbazepine 150 MG TAB PO SCH ×2 (08:29→21:07)
[2017-01-15] MEDS: DOCUSATE SODIUM 100 MG CAP PO SCH ×2 (08:29→21:07)
[2017-01-15] MEDS: DULoxetine 30 MG CAP (CYMBALTA) PO SCH (08:29)
[2017-01-15] MEDS: FUROSEMIDE 40 MG TAB PO SCH (08:29)
[2017-01-15] MEDS: hydrOXYzine 25 MG TAB PO SCH ×2 (08:29→21:07)
[2017-01-15] MEDS: VANCOMYCIN HCL 1,000 MG, VIAL MATE ADAPTER 1 EACH in D5W 250 ML IV SCH ×2 (08:29→17:39)
[2017-01-15] MEDS: TRIAMCINOLONE ACET 0.1% CREAM 80 GM EXT SCH ×2 (08:30→21:06)
[2017-01-15] MEDS: EUCERIN 120GM CREAM EXT SCH (08:30)
[2017-01-15] MEDS: NYSTATIN 100,000 UNITS/GM TOPICAL PWD 15 GM TOP PRN (08:31)
[2017-01-15] MEDS: ATORVASTATIN 10 MG TAB PO SCH (21:07)
[2017-01-16] MEDS: SODIUM CHLORIDE 0.9% INJ 10 ML SYR IV SCH ×2 (05:54→17:56)
[2017-01-16] MEDS: VANCOMYCIN HCL 1,000 MG, VIAL MATE ADAPTER 1 EACH in D5W 250 ML IV SCH ×2 (05:54→17:55)
[2017-01-16] MEDS: HEPARIN SOD (PORCINE) 5000 UNITS/ML VIAL SC SCH ×3 (05:54→21:04)
[2017-01-16 06:00] VITALS: BP 151/63
[2017-01-16] MEDS: hydrOXYzine 25 MG TAB PO SCH ×2 (08:37→21:03)
[2017-01-16] MEDS: LISINOPRIL 5 MG TAB PO SCH (08:37)
[2017-01-16] MEDS: OXcarbazepine 150 MG TAB PO SCH ×2 (08:37→21:03)
[2017-01-16] MEDS: FUROSEMIDE 40 MG TAB PO SCH (08:37)
[2017-01-16] MEDS: DOCUSATE SODIUM 100 MG CAP PO SCH ×2 (08:38→21:03)
[2017-01-16] MEDS: TRIAMCINOLONE ACET 0.1% CREAM 80 GM EXT SCH ×2 (08:38→21:06)
[2017-01-16] MEDS: DULoxetine 30 MG CAP (CYMBALTA) PO SCH (08:38)
[2017-01-16] MEDS: LEVEMIR (INSULIN DETEMIR) 1 UNITS/0.01ML SC SCH ×2 (08:39→21:04)
[2017-01-16] MEDS: EUCERIN 120GM CREAM EXT SCH (08:40)
[2017-01-16] MEDS: HumaLOG INSULIN (NovoLOG) PER UNIT SC SCH ×3 (08:40→17:56)
[2017-01-16] MEDS: PERCOCET 5MG/325MG TAB PO PRN (08:46)
[2017-01-16] MEDS: ATORVASTATIN 10 MG TAB PO SCH (21:03)
[2017-01-17 05:52] VITALS: BP 144/74
[2017-01-17] MEDS: HEPARIN SOD (PORCINE) 5000 UNITS/ML VIAL SC SCH ×3 (06:25→21:41)
[2017-01-17] MEDS: VANCOMYCIN HCL 1,000 MG, VIAL MATE ADAPTER 1 EACH in D5W 250 ML IV SCH ×2 (06:25→17:53)
[2017-01-17] MEDS: SODIUM CHLORIDE 0.9% INJ 10 ML SYR IV SCH ×2 (06:25→17:54)
[2017-01-17] MEDS: LEVEMIR (INSULIN DETEMIR) 1 UNITS/0.01ML SC SCH ×2 (08:04→20:30)
[2017-01-17] MEDS: HumaLOG INSULIN (NovoLOG) PER UNIT SC SCH ×3 (08:04→17:54)
[2017-01-17] MEDS: OXcarbazepine 150 MG TAB PO SCH ×2 (08:06→20:27)
[2017-01-17] MEDS: LISINOPRIL 5 MG TAB PO SCH (08:06)
[2017-01-17] MEDS: FUROSEMIDE 40 MG TAB PO SCH (08:06)
[2017-01-17] MEDS: hydrOXYzine 25 MG TAB PO SCH ×2 (08:06→20:28)
[2017-01-17] MEDS: DULoxetine 30 MG CAP (CYMBALTA) PO SCH (08:06)
[2017-01-17] MEDS: DOCUSATE SODIUM 100 MG CAP PO SCH ×2 (08:06→20:28)
[2017-01-17] MEDS: TRIAMCINOLONE ACET 0.1% CREAM 80 GM EXT SCH ×2 (08:07→20:36)
[2017-01-17] MEDS: EUCERIN 120GM CREAM EXT SCH (08:07)
[2017-01-17] MEDS: PERCOCET 5MG/325MG TAB PO PRN ×2 (08:07→20:27)
[2017-01-17 20:25] VITALS: BP_SYST 143; BP_SYST 184; BP_DIAS 80; BP_DIAS 88
[2017-01-17] MEDS: ATORVASTATIN 10 MG TAB PO SCH (20:28)
[2017-01-18] MEDS: HEPARIN SOD (PORCINE) 5000 UNITS/ML VIAL SC SCH ×3 (05:12→21:45)
[2017-01-18 05:25] VITALS: BP 133/95
[2017-01-18] MEDS: VANCOMYCIN HCL 1,000 MG, VIAL MATE ADAPTER 1 EACH in D5W 250 ML IV SCH ×2 (06:01→17:39)
[2017-01-18] MEDS: SODIUM CHLORIDE 0.9% INJ 10 ML SYR IV SCH ×2 (06:02→17:39)
[2017-01-18] MEDS: DOCUSATE SODIUM 100 MG CAP PO SCH ×2 (08:13→20:51)
[2017-01-18] MEDS: LISINOPRIL 5 MG TAB PO SCH (08:13)
[2017-01-18] MEDS: PERCOCET 5MG/325MG TAB PO PRN ×2 (08:14→20:51)
[2017-01-18] MEDS: hydrOXYzine 25 MG TAB PO SCH ×2 (08:15→20:52)
[2017-01-18] MEDS: DULoxetine 30 MG CAP (CYMBALTA) PO SCH (08:15)
[2017-01-18] MEDS: LEVEMIR (INSULIN DETEMIR) 1 UNITS/0.01ML SC SCH ×2 (08:15→20:53)
[2017-01-18] MEDS: FUROSEMIDE 40 MG TAB PO SCH (08:15)
[2017-01-18] MEDS: HumaLOG INSULIN (NovoLOG) PER UNIT SC SCH ×3 (08:16→17:39)
[2017-01-18] MEDS: OXcarbazepine 150 MG TAB PO SCH ×2 (08:16→20:52)
[2017-01-18] MEDS: TRIAMCINOLONE ACET 0.1% CREAM 80 GM EXT SCH ×2 (08:17→20:53)
[2017-01-18] MEDS: EUCERIN 120GM CREAM EXT SCH (08:17)
[2017-01-18] MEDS: ATORVASTATIN 10 MG TAB PO SCH (20:51)
[2017-01-18 21:57] VITALS: BP 176/75
[2017-01-18 22:20] VITALS: BP 143/65
[2017-01-19 05:30] VITALS: BP 148/88
[2017-01-19] MEDS: SODIUM CHLORIDE 0.9% INJ 10 ML SYR IV SCH ×2 (06:00→18:40)
[2017-01-19] MEDS: VANCOMYCIN HCL 1,000 MG, VIAL MATE ADAPTER 1 EACH in D5W 250 ML IV SCH ×2 (06:18→18:39)
[2017-01-19] MEDS: HEPARIN SOD (PORCINE) 5000 UNITS/ML VIAL SC SCH ×3 (06:18→21:26)
[2017-01-19] MEDS: hydrOXYzine 25 MG TAB PO SCH ×2 (08:28→20:01)
[2017-01-19] MEDS: DULoxetine 30 MG CAP (CYMBALTA) PO SCH (08:28)
[2017-01-19] MEDS: LISINOPRIL 5 MG TAB PO SCH (08:28)
[2017-01-19] MEDS: FUROSEMIDE 40 MG TAB PO SCH (08:29)
[2017-01-19] MEDS: OXcarbazepine 150 MG TAB PO SCH ×2 (08:29→20:01)
[2017-01-19] MEDS: DOCUSATE SODIUM 100 MG CAP PO SCH ×2 (08:29→20:01)
[2017-01-19] MEDS: HumaLOG INSULIN (NovoLOG) PER UNIT SC SCH ×3 (08:30→17:30)
[2017-01-19] MEDS: LEVEMIR (INSULIN DETEMIR) 1 UNITS/0.01ML SC SCH ×2 (08:32→21:26)
[2017-01-19] MEDS: TRIAMCINOLONE ACET 0.1% CREAM 80 GM EXT SCH ×2 (08:33→20:02)
[2017-01-19] MEDS: EUCERIN 120GM CREAM EXT SCH (08:33)
--- NOTE | 2017-01-19 09:43 | IPNPDOC ---
Subjective Date Seen The patient was seen on 01/19/17. Subjective Chief Complaint/HPI The patient is a 51-year-old female admitted with a reason for visit of Intentional Drug Overdose. Constitutional: Denies: Chills, Fever, Malaise Skin: Denies: Rash, Bruising Pulmonary: Denies: Dyspnea, Cough, Pleuritic Chest Pain Cardiovascular: Denies: Chest Pain, Palpitations, Orthopnea Gastrointestinal: Denies: Nausea, Abdominal Pain, Diarrhea Genitourinary: Denies: Dysuria, Frequency Hematologic: Denies: Bruising Objective Physical Examination General Exam: Positive: Alert, No Acute Distress ENT Exam: Positive: Mucous membr. moist/pink Neck Exam: Negative: thyromegaly Chest Exam: Positive: Clear to auscultation, Normal air movement Heart Exam: Positive: Rate Normal, Normal S1, Normal S2 Abdomen Exam: Positive: Normal bowel sounds, Soft, Negative: Tenderness Extremity Exam: Positive: Other (s/p left BKA; right forefoot amputation. Wound vac in place. No surrounding erythema, swelling) Neuro Exam: Positive: Normal Speech Psych Exam: Positive: Mental status NL Assessment /Plan Problems (1) Osteomyelitis Status: Chronic Response to Treatment: Worse, Uncontrolled Problem Specific Plan: Consult Specialist Problem Text: D235 vanco if fpc does not take wound vac, Pellatier to change to pull back dressing 01/10 afebrile, WBC 12.0 (01/06 9.7)-if remains stable, SNF in AM 01/09 per ID-needs 5W vanco via PICC (changed from cefazolin 2 skin allergic rxn) 01/08 PICC placed 01/07 - Continue IV abx via PICC line and wound vac. Debridement was performed yesterday by Dr. Alicea. 01/06/17 WCX: Organism 1 STREP AGALACTIAE GROUP B QUANTITY OF GROWTH FEW Organism 2 CORYNEBACTERIUM SPECIES QUANTITY OF GROWTH MODERATE 01/05 - MRI R foot reveals persistent OM similar c/w 09/12. Pt reports that surgery previuosly done by Dr Livingston, she now follows with him for wound care in [place]. She has not been seen locally recently. Consult Dr Alicea. (2) Intentional drug overdose Status: Acute Problem Text: 01/09/[address] Rosas, Psychiatry, patient is stable to discharge to [facility] without IMHU admission and safe without a sitter (3) IDDM (insulin dependent diabetes mellitus) Status: Chronic Response to Treatment: Stable, Uncontrolled Problem Specific Plan: Monitor Clinically Problem Text: 01/19/17:increase levemir to 50/45, add metformin on Levemir 50/35 01/10 fair control c BG mid 100s-low 200s-increased Levemir 50/35 to 60/35 and + HD metformin 01/07 - Blood sugars are still high. Increase Levemir to 35U QHS and continue levemir 50U qAM. (KES) 01/05/17: Glucose has been consistently elevated in the high 300s. HD: Toujeo 63U BID and she has only been on levemir 50U daily here, which she received at 0900 today. Will add levemir 25U this evening and will also add an sliding scale - she normally takes novolog 20U QAC and HS at home and metfromin 1000 BID (KES) (4) Bipolar affective disorder Status: Chronic Problem Specific Plan: Consult Specialist Problem Text: 01/05 - Per Dr. Rangel's consult note recommended restarting her Trileptal 150 mg BID and Cymbalta 30 mg daily Plan/VTE VTE Prophylaxis Ordered?: Yes Plan/Urinary Catheter Reason for insertion/continuin: Critical Pt monitoring Plan Diagnostics: MRI (foot) VS, I&O, 24H, Fishbone Vital Signs/I&O Vital Signs Date Time Temp Pulse Resp B/P (MAP) Pulse Ox O2 Delivery O2 Flow Rate FiO2 01/19/17 08:28 168/48 01/19/17 05:30 97.6 86 16 96 Room Air I&O- Last 24 Hours up to 6 AM 01/19/17 06:00 Intake Total 1570 ml Balance 1570 ml Laboratory Data 24H LABS Laboratory Tests 2 01/19/17 05:19: Vancomycin Level Trough 14.3 Milton Monaco MD Jan 19, 2017 09:43
[2017-01-19] MEDS: metFORMIN (GLUCOPHAGE) 500 MG TAB PO SCH ×2 (13:08→18:39)
[2017-01-19] MEDS: SODIUM CHLORIDE 0.9% INJ 10 ML SYR IV PRN (20:01)
[2017-01-19] MEDS: ATORVASTATIN 10 MG TAB PO SCH (20:01)
[2017-01-20 06:00] VITALS: BP 166/77
[2017-01-20] MEDS: VANCOMYCIN HCL 1,000 MG, VIAL MATE ADAPTER 1 EACH in D5W 250 ML IV SCH ×2 (06:14→18:37)
[2017-01-20] MEDS: HEPARIN SOD (PORCINE) 5000 UNITS/ML VIAL SC SCH ×3 (06:14→21:26)
[2017-01-20] MEDS: SODIUM CHLORIDE 0.9% INJ 10 ML SYR IV SCH ×2 (06:15→18:37)
[2017-01-20 06:41] LABS: BASO # 0.1 K/mm3 (0.0-0.2); BASO % 1.1 % (0.0-1.0); EOS # 0.3 K/mm3 (0.0-0.50); EOS % 3.2 % (0.0-3.0); LARGE UNSTAINED CELL # 0.3 K/mm3 (0.0-0.4); LARGE UNSTAINED CELL % 2.9 % (0.0-4.0); LYMPH # 3.7 K/mm3 (1.5-4.5); LYMPH % 40.3 % (24.0-44.0); MEAN CORPUSCULAR HEMOGLOBIN 28.6 pg (27.0-33.0); MEAN CORPUSCULAR HGB CONC 33.6 g/dl (32.0-36.5); MONO # 0.4 K/mm3 (0.0-0.8); MONO % 4.8 % (0.0-5.0); NEUTROPHILS # 4.4 K/mm3 (1.8-7.7); NEUTROPHILS % 47.8 % (36.0-66.0); PLATELET COUNT, AUTOMATED 314 k/mm3 (150-450); RED CELL DISTRIBUTION WIDTH 13.4 % (11.5-14.5); WHITE BLOOD COUNT 9.2 K/mm3 (4.0-10.0)
[2017-01-20 07:05] LABS: ERYTHROCYTE SEDIMENTATION RATE 71 mm/hr (0-20)
[2017-01-20 07:15] LABS: ANION GAP 11 MEQ/L (8-16); BLOOD UREA NITROGEN 14 MG/DL (7-18); CALCIUM LEVEL 9.7 MG/DL (8.5-10.1); CARBON DIOXIDE LEVEL 25 MEQ/L (21-32); CHLORIDE LEVEL 98 MEQ/L (98-107); GLOMERULAR FILTRATION RATE > 60.0 (>58); GLUCOSE, FASTING 183 MG/DL (70-105); POTASSIUM SERUM 4.1 MEQ/L (3.5-5.1); SODIUM LEVEL 134 MEQ/L (136-145)
[2017-01-20] MEDS: LEVEMIR (INSULIN DETEMIR) 1 UNITS/0.01ML SC SCH ×2 (08:05→21:27)
[2017-01-20] MEDS: HumaLOG INSULIN (NovoLOG) PER UNIT SC SCH ×3 (08:06→18:36)
[2017-01-20] MEDS: DOCUSATE SODIUM 100 MG CAP PO SCH ×2 (08:08→21:27)
[2017-01-20] MEDS: DULoxetine 30 MG CAP (CYMBALTA) PO SCH (08:12)
[2017-01-20] MEDS: LISINOPRIL 5 MG TAB PO SCH (08:12)
[2017-01-20] MEDS: hydrOXYzine 25 MG TAB PO SCH ×2 (08:12→21:26)
[2017-01-20] MEDS: FUROSEMIDE 40 MG TAB PO SCH (08:12)
[2017-01-20] MEDS: metFORMIN (GLUCOPHAGE) 500 MG TAB PO SCH ×2 (08:13→18:35)
[2017-01-20] MEDS: EUCERIN 120GM CREAM EXT SCH (08:13)
[2017-01-20] MEDS: OXcarbazepine 150 MG TAB PO SCH ×2 (08:13→21:27)
[2017-01-20] MEDS: TRIAMCINOLONE ACET 0.1% CREAM 80 GM EXT SCH ×2 (08:14→21:28)
[2017-01-20] MEDS: PERCOCET 5MG/325MG TAB PO PRN (12:47)
[2017-01-20] MEDS: ONDANSETRON 4MG/2ML VIAL (J2405) IV PRN (12:54)
[2017-01-20] MEDS: ATORVASTATIN 10 MG TAB PO SCH (21:27)
[2017-01-20] MEDS ORDERED: PERMETHRIN 5% CREAM 60 GM TOP ONE (23:45)
[2017-01-21 06:00] VITALS: BP 153/77
[2017-01-21] MEDS: SODIUM CHLORIDE 0.9% INJ 10 ML SYR IV SCH ×2 (06:06→18:00)
[2017-01-21] MEDS: VANCOMYCIN HCL 1,000 MG, VIAL MATE ADAPTER 1 EACH in D5W 250 ML IV SCH ×2 (06:06→17:36)
[2017-01-21] MEDS: HEPARIN SOD (PORCINE) 5000 UNITS/ML VIAL SC SCH ×3 (06:06→21:25)
[2017-01-21] MEDS: LISINOPRIL 5 MG TAB PO SCH (09:00)
[2017-01-21] MEDS: DOCUSATE SODIUM 100 MG CAP PO SCH ×2 (09:02→21:26)
[2017-01-21] MEDS: FUROSEMIDE 40 MG TAB PO SCH (09:03)
[2017-01-21] MEDS: DULoxetine 30 MG CAP (CYMBALTA) PO SCH (09:03)
[2017-01-21] MEDS: OXcarbazepine 150 MG TAB PO SCH ×2 (09:03→21:25)
[2017-01-21] MEDS: metFORMIN (GLUCOPHAGE) 500 MG TAB PO SCH ×2 (09:03→17:36)
[2017-01-21] MEDS: hydrOXYzine 25 MG TAB PO SCH ×2 (09:04→21:26)
[2017-01-21] MEDS: LEVEMIR (INSULIN DETEMIR) 1 UNITS/0.01ML SC SCH ×2 (09:04→21:26)
[2017-01-21] MEDS: HumaLOG INSULIN (NovoLOG) PER UNIT SC SCH ×3 (09:05→17:30)
[2017-01-21] MEDS: EUCERIN 120GM CREAM EXT SCH (09:09)
[2017-01-21] MEDS: TRIAMCINOLONE ACET 0.1% CREAM 80 GM EXT SCH ×2 (09:10→21:26)
[2017-01-21] MEDS: ONDANSETRON 4MG/2ML VIAL (J2405) IV PRN (17:36)
[2017-01-21] MEDS: ATORVASTATIN 10 MG TAB PO SCH (21:26)
[2017-01-21] MEDS: PERCOCET 5MG/325MG TAB PO PRN (21:35)
--- NOTE | 2017-01-21 21:57 | IPN ---
DATE: 01/20/2017 Iliana is doing fairly well. The wound on her foot is improving, it is more shallow. She denies any fever, chills. No nausea, vomiting or diarrhea. No abdominal pain. She was nauseous today after she got vancomycin. Her appetite is good. The rash continues on upper extremities and abdomen, it is pruritic but it is fairly well controlled with the use of steroids and Aquaphor. MEDICATIONS: - vancomycin 1 gram IV every 12 hours, cefazolin was discontinued on 01/09/2017, switched to vancomycin in case she had a cefazolin allergy, but the rash is not any better, she has been on vancomycin since 01/09/2017 PHYSICAL EXAMINATION: Heart: Normal S1, S2. No murmurs. Lungs are clear. No wheezes, rales or rhonchi. Abdomen: Morbidly obese, soft, nontender. Extremities: Transmetatarsal amputation. Open wound on the 5th metatarsal, mid foot is healing, much more shallow, decreased in size measuring about 3 x 2 cm. Transmetatarsal amputation site still is quite deep but there is good granulation tissue. IMPRESSION: 1. Chronic osteomyelitis of the right foot with culture positive for Corynebacterium and Group B Streptococcus, on IV vancomycin. 2. Rash scrapings were done and I was not able to see any scabies under the microscope after 48 hours. The patient has been switched to new antibiotic for the past 10 days, this does not look like a drug rash but more like an eczematous eruption or possibly scabies although the patient does not have any lesions around her wrist or her finger webs. 3. History of MRSA isolation so the patient has been on contact isolation during this whole admission which is to be continued. PLAN: Will treat the patient with permethrin just to be on the safe side and if there is no improvement then will change her triamcinolone to an ointment and treat her like eczema. At this point, as I previously mentioned, I did the scrapings, I did not see any scabies but the rash has gotten worse with steroids and therefore I have opted to treat her as she has a previous history of such.
[2017-01-22] MEDS: VANCOMYCIN HCL 1,000 MG, VIAL MATE ADAPTER 1 EACH in D5W 250 ML IV SCH ×2 (05:41→18:02)
[2017-01-22] MEDS: SODIUM CHLORIDE 0.9% INJ 10 ML SYR IV SCH ×2 (05:42→18:07)
[2017-01-22] MEDS: HEPARIN SOD (PORCINE) 5000 UNITS/ML VIAL SC SCH ×3 (05:42→21:24)
[2017-01-22 06:00] VITALS: BP 132/67
[2017-01-22] MEDS: OXcarbazepine 150 MG TAB PO SCH ×2 (08:40→21:23)
[2017-01-22] MEDS: hydrOXYzine 25 MG TAB PO SCH ×2 (08:40→21:23)
[2017-01-22] MEDS: DULoxetine 30 MG CAP (CYMBALTA) PO SCH (08:40)
[2017-01-22] MEDS: FUROSEMIDE 40 MG TAB PO SCH (08:40)
[2017-01-22] MEDS: LISINOPRIL 5 MG TAB PO SCH (08:40)
[2017-01-22] MEDS: metFORMIN (GLUCOPHAGE) 500 MG TAB PO SCH ×2 (08:40→18:01)
[2017-01-22] MEDS: DOCUSATE SODIUM 100 MG CAP PO SCH ×2 (08:40→21:23)
[2017-01-22] MEDS: LEVEMIR (INSULIN DETEMIR) 1 UNITS/0.01ML SC SCH ×2 (08:41→21:23)
[2017-01-22] MEDS: HumaLOG INSULIN (NovoLOG) PER UNIT SC SCH ×3 (08:41→18:02)
[2017-01-22] MEDS: EUCERIN 120GM CREAM EXT SCH (08:42)
[2017-01-22] MEDS: TRIAMCINOLONE ACET 0.1% CREAM 80 GM EXT SCH ×2 (08:42→21:24)
[2017-01-22] MEDS: ATORVASTATIN 10 MG TAB PO SCH (21:23)
[2017-01-23] MEDS: SODIUM CHLORIDE 0.9% INJ 10 ML SYR IV SCH ×2 (05:37→18:07)
[2017-01-23] MEDS: VANCOMYCIN HCL 1,000 MG, VIAL MATE ADAPTER 1 EACH in D5W 250 ML IV SCH ×2 (05:37→18:07)
[2017-01-23] MEDS: HEPARIN SOD (PORCINE) 5000 UNITS/ML VIAL SC SCH ×3 (05:38→21:06)
[2017-01-23 06:00] VITALS: BP 121/58
[2017-01-23] MEDS: DOCUSATE SODIUM 100 MG CAP PO SCH ×2 (08:06→21:08)
[2017-01-23] MEDS: DULoxetine 30 MG CAP (CYMBALTA) PO SCH (08:06)
[2017-01-23] MEDS: OXcarbazepine 150 MG TAB PO SCH ×2 (08:06→21:08)
[2017-01-23] MEDS: hydrOXYzine 25 MG TAB PO SCH ×2 (08:06→21:08)
[2017-01-23] MEDS: FUROSEMIDE 40 MG TAB PO SCH (08:06)
[2017-01-23] MEDS: LISINOPRIL 5 MG TAB PO SCH (08:06)
[2017-01-23] MEDS: metFORMIN (GLUCOPHAGE) 500 MG TAB PO SCH ×2 (08:07→18:07)
[2017-01-23] MEDS: LEVEMIR (INSULIN DETEMIR) 1 UNITS/0.01ML SC SCH ×2 (08:07→21:06)
[2017-01-23] MEDS: HumaLOG INSULIN (NovoLOG) PER UNIT SC SCH ×3 (08:08→18:07)
[2017-01-23] MEDS: EUCERIN 120GM CREAM EXT SCH ×2 (08:08→21:07)
[2017-01-23] MEDS: TRIAMCINOLONE ACET 0.1% OINTMENT 15 GM EXT SCH ×2 (08:10→21:07)
[2017-01-23 10:03] LABS: ANION GAP 12 MEQ/L (8-16); BLOOD UREA NITROGEN 23 MG/DL (7-18); CALCIUM LEVEL 8.7 MG/DL (8.5-10.1); CARBON DIOXIDE LEVEL 26 MEQ/L (21-32); CHLORIDE LEVEL 95 MEQ/L (98-107); CREATININE FOR GFR 0.82 MG/DL (0.55-1.02); GLOMERULAR FILTRATION RATE > 60.0 (>58); GLUCOSE, FASTING 307 MG/DL (70-105); SODIUM LEVEL 133 MEQ/L (136-145)
[2017-01-23] MEDS: ONDANSETRON 4 MG ORAL DISINTEGRATING TAB (S0181) SL PRN (11:11)
--- NOTE | 2017-01-23 17:04 | IPN ---
DATE: 01/22/2017 Iliana seems to be doing better. She states that her rash is less itchy, less pruritic. She has been treated with permethrin even though the scrapings that I did and looked under the microscope were negative due to the persistent nature of rash and the previous history of scabies I have opted to treat her. The patient has been on contact isolation during her whole admission. She also states that her sister is concerned about her being itchy as well but she describes her sister having some bug bites. I have asked her to have her sister check with her primary care provider. LABORATORY DATA: Laboratories done on 01/20/2017, white count was 9.2, hemoglobin 12.6, hematocrit 37.4, platelets 314, ESR 71, CRP 4.83. Rash on upper extremity seems to be less erythematous. Abdomen still has significant scabs. IMPRESSION: 1. Rash, possibly eczematous in nature, less likely scabies. Scrapings were negative, but the patient was treated with permethrin. 2. Chronic osteomyelitis of the right foot, on IV vancomycin. Wounds are improving. PLAN: Switch topical triamcinolone to ointment for better moisturizer and then use Eucerin on feet, legs, arms and abdomen twice a day to be placed by nursing. [facility]
[2017-01-23] MEDS: ATORVASTATIN 10 MG TAB PO SCH (21:08)
[2017-01-24] MEDS: VANCOMYCIN HCL 1,000 MG, VIAL MATE ADAPTER 1 EACH in D5W 250 ML IV SCH ×2 (05:25→17:12)
[2017-01-24] MEDS: HEPARIN SOD (PORCINE) 5000 UNITS/ML VIAL SC SCH ×3 (05:27→21:44)
[2017-01-24 06:00] VITALS: BP 132/64
[2017-01-24] MEDS: SODIUM CHLORIDE 0.9% INJ 10 ML SYR IV SCH ×2 (06:26→17:13)
[2017-01-24] MEDS: LEVEMIR (INSULIN DETEMIR) 1 UNITS/0.01ML SC SCH ×2 (08:24→21:45)
[2017-01-24] MEDS: DOCUSATE SODIUM 100 MG CAP PO SCH ×2 (08:25→21:44)
[2017-01-24] MEDS: FUROSEMIDE 40 MG TAB PO SCH (08:25)
[2017-01-24] MEDS: HumaLOG INSULIN (NovoLOG) PER UNIT SC SCH ×3 (08:25→17:12)
[2017-01-24] MEDS: OXcarbazepine 150 MG TAB PO SCH ×2 (08:25→21:44)
[2017-01-24] MEDS: hydrOXYzine 25 MG TAB PO SCH ×2 (08:25→21:44)
[2017-01-24] MEDS: DULoxetine 30 MG CAP (CYMBALTA) PO SCH (08:25)
[2017-01-24] MEDS: metFORMIN (GLUCOPHAGE) 500 MG TAB PO SCH ×2 (08:25→17:12)
[2017-01-24] MEDS: LISINOPRIL 5 MG TAB PO SCH (08:25)
[2017-01-24] MEDS: EUCERIN 120GM CREAM EXT SCH ×2 (08:26→21:46)
[2017-01-24] MEDS: TRIAMCINOLONE ACET 0.1% OINTMENT 15 GM EXT SCH ×2 (08:26→21:46)
--- NOTE | 2017-01-24 12:52 | IPN ---
DATE: 01/23/2017 Iliana is doing better. The itching seems to have improved. She has minimal pain on her foot whenever she steps on it. She has no fever or chills. She has mild nausea intermittently. No vomiting or diarrhea. MEDICATIONS: Vancomycin 1 gram intravenous (IV) every 12 hours. End of therapy is going to be February 13. White count 9.2, hemoglobin 12.6, hematocrit 37.4, platelets 314. ESR 71, CRP 2.81. Sodium 133, potassium 4, chloride 95, bicarbonate 25, BUN 23, creatinine 0.8, glucose 207, calcium 8.7. Right foot has an open area at the transmetatarsal amputation site with minimal serous drainage. Maxsorb is being placed. Another open wound on the 5th metatarsal, much more shallow. Rash on the skin with multiple excoriations, scabs, and seems to have decreased, less erythema after treatment with permethrin in spite of scabies scrapings being negative. IMPRESSION: 1. Chronic osteomyelitis of the right foot with culture positive for group B streptococcus and Corynebacterium on IV vancomycin. 2. Rash, probably eczematous in nature, but the patient has been treated for scabies, as she had a history of it and currently on triamcinolone and Eucerin. She will be given a second treatment of permethrin next week. PLAN: Continue contact isolation. Consult Dr. August for medicine consult regarding her best dressing changes. The patient is in agreement. That could be done next week. End of therapy for IV antibiotic with vancomycin would be February 13
[2017-01-24] MEDS: ATORVASTATIN 10 MG TAB PO SCH (21:44)
[2017-01-25] MEDS: VANCOMYCIN HCL 1,000 MG, VIAL MATE ADAPTER 1 EACH in D5W 250 ML IV SCH ×2 (05:31→17:30)
[2017-01-25 06:00] VITALS: BP 155/71
[2017-01-25] MEDS: HEPARIN SOD (PORCINE) 5000 UNITS/ML VIAL SC SCH ×3 (06:00→21:40)
[2017-01-25] MEDS: SODIUM CHLORIDE 0.9% INJ 10 ML SYR IV SCH ×2 (06:28→17:24)
[2017-01-25] MEDS: LEVEMIR (INSULIN DETEMIR) 1 UNITS/0.01ML SC SCH ×2 (07:44→21:40)
[2017-01-25] MEDS: HumaLOG INSULIN (NovoLOG) PER UNIT SC SCH ×3 (07:45→17:23)
[2017-01-25] MEDS: DULoxetine 30 MG CAP (CYMBALTA) PO SCH (07:46)
[2017-01-25] MEDS: FUROSEMIDE 40 MG TAB PO SCH (07:46)
[2017-01-25] MEDS: metFORMIN (GLUCOPHAGE) 500 MG TAB PO SCH ×2 (07:46→17:23)
[2017-01-25] MEDS: LISINOPRIL 5 MG TAB PO SCH (07:46)
[2017-01-25] MEDS: OXcarbazepine 150 MG TAB PO SCH ×2 (07:46→21:40)
[2017-01-25] MEDS: DOCUSATE SODIUM 100 MG CAP PO SCH ×2 (07:46→21:40)
[2017-01-25] MEDS: hydrOXYzine 25 MG TAB PO SCH ×2 (07:46→21:40)
[2017-01-25] MEDS: TRIAMCINOLONE ACET 0.1% OINTMENT 15 GM EXT SCH ×2 (07:48→21:41)
[2017-01-25] MEDS: EUCERIN 120GM CREAM EXT SCH ×2 (07:48→21:41)
[2017-01-25] MEDS: ONDANSETRON 4 MG ORAL DISINTEGRATING TAB (S0181) SL PRN (10:41)
[2017-01-25] MEDS: PERCOCET 5MG/325MG TAB PO PRN (17:24)
[2017-01-25] MEDS ORDERED: HEPARIN SOD (PORCINE) 5000 UNITS/ML VIAL As Ordered ONE (21:32)
[2017-01-25] MEDS: ATORVASTATIN 10 MG TAB PO SCH (21:40)
[2017-01-26 06:00] VITALS: BP 173/92
[2017-01-26] MEDS: SODIUM CHLORIDE 0.9% INJ 10 ML SYR IV SCH ×2 (06:29→17:43)
[2017-01-26] MEDS: HEPARIN SOD (PORCINE) 5000 UNITS/ML VIAL SC SCH ×3 (06:30→20:55)
[2017-01-26] MEDS: VANCOMYCIN HCL 1,000 MG, VIAL MATE ADAPTER 1 EACH in D5W 250 ML IV SCH ×2 (08:18→17:42)
[2017-01-26] MEDS: metFORMIN (GLUCOPHAGE) 500 MG TAB PO SCH ×2 (08:19→17:43)
[2017-01-26] MEDS: ONDANSETRON 4 MG ORAL DISINTEGRATING TAB (S0181) SL PRN (08:20)
[2017-01-26] MEDS: HumaLOG INSULIN (NovoLOG) PER UNIT SC SCH ×3 (08:20→17:43)
[2017-01-26] MEDS: PERCOCET 5MG/325MG TAB PO PRN (08:21)
[2017-01-26] MEDS: SODIUM CHLORIDE 0.9% INJ 10 ML SYR IV PRN (08:22)
[2017-01-26] MEDS: hydrOXYzine 25 MG TAB PO SCH ×2 (10:24→20:54)
[2017-01-26] MEDS: OXcarbazepine 150 MG TAB PO SCH ×2 (10:24→20:54)
[2017-01-26] MEDS: DOCUSATE SODIUM 100 MG CAP PO SCH ×2 (10:24→20:54)
[2017-01-26] MEDS: DULoxetine 30 MG CAP (CYMBALTA) PO SCH (10:24)
[2017-01-26] MEDS: FUROSEMIDE 40 MG TAB PO SCH (10:25)
[2017-01-26] MEDS: LISINOPRIL 5 MG TAB PO SCH (10:25)
[2017-01-26] MEDS: LEVEMIR (INSULIN DETEMIR) 1 UNITS/0.01ML SC SCH ×2 (10:26→20:55)
[2017-01-26] MEDS: EUCERIN 120GM CREAM EXT SCH ×2 (10:26→20:56)
[2017-01-26] MEDS: TRIAMCINOLONE ACET 0.1% OINTMENT 15 GM EXT SCH (10:26)
--- NOTE | 2017-01-26 10:41 | IPNPDOC ---
Subjective Date Seen The patient was seen on 01/26/17. Subjective Chief Complaint/HPI The patient is a 51-year-old female admitted with a reason for visit of Intentional Drug Overdose. Events since last encounter Pt without new concerns. Nusring without new concerns. She has a telemed appt with Dr August this afternoon. Constitutional: Denies: Chills, Fever ENT: Denies: Head Aches Pulmonary: Denies: Dyspnea, Cough Cardiovascular: Denies: Chest Pain, Palpitations Gastrointestinal: Denies: Nausea, Vomiting, Diarrhea Psych: Reports: Mood Normal Objective Physical Examination General Exam: Positive: Alert, No Acute Distress ENT Exam: Positive: Mucous membr. moist/pink Neck Exam: Negative: thyromegaly Chest Exam: Positive: Clear to auscultation, Normal air movement Heart Exam: Positive: Rate Normal, Normal S1, Normal S2 Abdomen Exam: Positive: Normal bowel sounds, Soft, Negative: Tenderness Extremity Exam: Positive: Other (s/p left BKA; right forefoot amputation. Wound vac in place. No surrounding erythema, swelling) Neuro Exam: Positive: Normal Speech Psych Exam: Positive: Mental status NL Assessment /Plan Problems (1) Osteomyelitis Status: Chronic Response to Treatment: Worse, Uncontrolled Problem Specific Plan: Consult Specialist Problem Text: if longterm does not take wound vac, [place] to change to pull back dressing 01/10 afebrile, WBC 12.0 (01/06 9.7)-if remains stable, SNF in AM 01/09 per ID-needs 5W vanco via PICC (changed from cefazolin 2 skin allergic rxn) 01/08 PICC placed 01/07 - Continue IV abx via PICC line and wound vac. Debridement was performed yesterday by Dr. Alicea. 01/06/17 WCX: Organism 1 STREP AGALACTIAE GROUP B QUANTITY OF GROWTH FEW Organism 2 CORYNEBACTERIUM SPECIES QUANTITY OF GROWTH MODERATE 01/05 - MRI R foot reveals persistent OM similar c/w 09/12. Pt reports that surgery previuosly done by Dr Livingston, she now follows with him for wound care in [place]. She has not been seen locally recently. Consult Dr Alicea. (2) Intentional drug overdose Status: Acute Problem Text: 01/09/[address] Rosas, Psychiatry, patient is stable to discharge to longterm without [facility] admission and safe without a sitter (3) IDDM (insulin dependent diabetes mellitus) Status: Chronic Response to Treatment: Stable, Uncontrolled Problem Specific Plan: Monitor Clinically Problem Text: 01/19/17:increase levemir to 50/45, add metformin on Levemir 50/35 01/10 fair control c BG mid 100s-low 200s-increased Levemir 50/35 to 60/35 and + HD metformin 01/07 - Blood sugars are still high. Increase Levemir to 35U QHS and continue levemir 50U qAM. (KES) 01/05/17: Glucose has been consistently elevated in the high 300s. HD: Toujeo 63U BID and she has only been on levemir 50U daily here, which she received at 0900 today. Will add levemir 25U this evening and will also add an sliding scale - she normally takes novolog 20U QAC and HS at home and metfromin 1000 BID (KES) (4) Bipolar affective disorder Status: Chronic Problem Specific Plan: Consult Specialist Problem Text: 01/05 - Per Dr. Rangel's consult note recommended restarting her Trileptal 150 mg BID and Cymbalta 30 mg daily Plan/VTE VTE Prophylaxis Ordered?: Yes Plan/Urinary Catheter Reason for insertion/continuin: Critical Pt monitoring Plan Diagnostics: MRI (foot) VS, I&O, 24H, Fishbone Vital Signs/I&O Vital Signs Date Time Temp Pulse Resp B/P (MAP) Pulse Ox O2 Delivery O2 Flow Rate FiO2 01/26/17 10:25 173/92 01/26/17 08:51 18 01/26/17 06:00 98.7 90 97 Room Air I&O- Last 24 Hours up to 6 AM 01/26/17 06:00 Intake Total 960 ml Output Total 1000 ml Balance -40 ml Laboratory Data 24H LABS Laboratory Tests 2 01/25/17 11:37: Bedside Glucose (Misc Panel) 181H 01/25/17 16:15: Bedside Glucose (Misc Panel) 269H 01/25/17 20:55: Bedside Glucose (Misc Panel) 279H 01/26/17 06:52: Vancomycin Level Trough 10.9 JESUS VELAZQUEZ PA-C Jan 26, 2017 10:41
--- NOTE | 2017-01-26 13:41 | PHACANCOPD ---
PHARMACY VANCOMYCIN DOSING Pt Demographics Demographics Patient Age:51 , Weight:0.000 , Gender: female Adjusted Body Weight Date: 01/09/17, Adjusted Body Weight: [78] Kg Events Past 24 Hours Events Past 24 Hours: NO: Dialysis, Diuretic Therapy, Change in CrCl, Fever, Elevation in WBC, Pending Diagnostics, Pending Procedures, Other Vancomycin Vancomycin indication: osteomyelitis Vancomycin Target Ranges: 15-20 mcg/ml Vancomycin Load Y/N: No Load Dose Date Time Vancomycin Load Dose: Date: Time: Vancomycin Dose Date: 01/26/17. Current Vancomycin Dose: [1GM IV Q12H, EXTRA 1GM DOSE TODAY] Date: 01/09/17. Current Vancomycin Dose: [1g IV q8h @16] Intermittent Dosing?: No Labs Labs Item Value Date Time White Blood Count 11.4 K/mm3 H 01/11/17 0528 White Blood Count 9.2 K/mm3 01/20/17 0623 Creatinine 0.82 MG/DL 01/23/17 0922 Vancomycin Level Trough 10.9 UG/ML 01/26/17 0652 Vital Signs Label Value Date Time Patient Temperature 98.7 degrees F 01/26/17 0600 Temperature Source Temporal 01/26/17 0600 Creatinine Clearance Date:01/09/17. Creatinine Clearance: [>100 ml/min]. Assessment and Plan Maintaining Current Dose?: Yes Reason for dose change: No Dose Change Pharmacist Note Pharmacist Note 01/26: Patient's trough came back at 10.9 today. She is to complete antibiotic course on February 13. She is to receive an extra 1gram of Vancomycin today to help increase her trough. WE will continue to monitor and make adjustments as necessary. Date: 01/09/17. Pharmacist note: pt has been started on vancomycin for osteomyelitis, she was previously treated with Ancef 2g IV q8h. R foot wound culture is positive for Strep grp B and corynebacterium. Pt also has a previous Hx of MRSA (R foot). Based on prior vancomycin dosing, I will start her on 1g q8h. I will order a trough when she is at steady state, she was previously maintained on 1g IV q12h with a SCr of ~1. SCr is currently ~0.6. I will continue to monitor in the meantime. YOAN BLAIR PHARMACY Jan 26, 2017 13:40
[2017-01-26 14:00] VITALS: BP 135/80
[2017-01-26] MEDS ORDERED: VANCOMYCIN HCL 1,000 MG, VIAL MATE ADAPTER 1 EACH in D5W 250 ML IV ONE (14:00)
[2017-01-26] MEDS ORDERED: ISOVUE-370 76% 100ML VIAL (Q9967) As Ordered ONE (17:41)
[2017-01-26] MEDS: NS 1,000 ML IV SCH (19:58)
--- NOTE | 2017-01-26 20:29 | REP ---
CT ANGIOGRAM AORTA AND RUNOFF: 01/26/2017. Clinical history: Right-sided diabetic ulcer. Prior cholecystectomy. Technique: After confirming position of the left-sided PICC line into the SVC, the patient was given a bolus of 75 mL of Isovue 370. The scanner stopped at 75 mL of an intended 100 mL injection and this study is not arterial phase, but is in fact equilibrium or early delayed phase scan. Contrast density in the arterial tree is not sufficient for diagnostic CT runoff. CT abdomen: Lung bases show dependent atelectasis. The heart borderline with left atrial enlargement. No pericardial thickening or effusion. There is hepatomegaly with a 23 cm vertical diameter of the right hepatic lobe and probable fatty infiltration. There is no dilated duct cyst or intrahepatic mass. No ascites. There is no splenomegaly or focal lesion. Clip in the gallbladder fossa from prior cholecystectomy. No hiatal hernia. Adrenal glands are normal. Kidneys show function without obstruction, stone, mass or cyst. There is atherosclerotic calcification of the distal abdominal aorta at the proximal common iliac arteries without aneurysm or dissection. No periaortic or retroperitoneal pathologic sized adenopathy. Small bowel loops and colon in the abdomen proper were unremarkable. There are multiple small densities in the subcutaneous fat which suggest injection sites for medication. I do not see a ventral hernia. Bone windows show degenerative disc changes lower thoracic, upper lumbar spine with some facet arthropathy, but no spondylolysis, spondylolisthesis or compression deformity. Visualized ribs were grossly intact. CT pelvis: Small bowel loops and colon in the pelvis were unremarkable. Uterus slightly prominent, deviated towards the right but without gross mass. The right ovary larger than the left 2.9 cm in maximum diameter left, while on the right about 2.4 cm. No free fluid in the cul-de-sac. Distal left colon, sigmoid and rectum without inflammatory changes. There is no sign of colitis, diverticulitis or appendicitis. Small bowel loops grossly intact. There is no ventral or inguinal hernia in the pelvis nor inguinal adenopathy. The iliac vessels show normal caliber to the groin where the femoral vessels are seen. The bony hips, pelvis, SI joints, and lumbosacral junction show minor degenerative changes and no destructive lesion. Bilateral lower extremities: This is a nondiagnostic study for runoff. Contrast is seen in the femoral arteries on both sides and into the popliteal artery with poor visualization of the trifurcation vessels on the left compared to right. Nevertheless this is not diagnostic. There is subcutaneous edema in the lower legs, calves and feet. The bone windows of the femur show no destructive lesion or fracture. There is a bone island in the left femoral condyle and a few millimeters of subluxation of the patella on the left and right knee. Tibia and fibula without fracture. The feet without acute destructive finding. The right midfoot shows evidence of amputation proximal to mid metatarsals with adjacent soft tissue swelling, but no subcutaneous air on the foot images reviewed in lung windows. There has been similar midfoot amputation on the left without subcutaneous emphysema and with soft tissue swelling about the entire foot and lower leg. Soft tissue wound open adjacent to that first metatarsal proximal shaft on the right. Impression: 1. Minor atherosclerotic calcifications aorta and iliac vessels, but nondiagnostic study due to scanner halting injection three-quarters of the way through and delaying acquisition. This was not arterial phase but end of the equilibrium or early delayed phase and runoff was not diagnostic. No gross aortic aneurysm. 2. Hepatomegaly up to 23 cm with fatty liver. 3. Bilateral midfoot amputation with soft tissue swelling, right more than left with no acute destructive lesion by CT. Soft tissue wound open adjacent to that first metatarsal proximal shaft on the right. Signed by Solo High MD 01/26/2017 09:32 P
[2017-01-26] MEDS: ATORVASTATIN 10 MG TAB PO SCH (20:54)
[2017-01-26] MEDS: TRIAMCINOLONE ACET 0.1% OINTMENT 80 GM EXT SCH (20:55)
[2017-01-27] MEDS: VANCOMYCIN HCL 1,000 MG, VIAL MATE ADAPTER 1 EACH in D5W 250 ML IV SCH ×2 (05:23→18:03)
[2017-01-27] MEDS: NS 1,000 ML IV SCH ×2 (05:23→13:23)
[2017-01-27] MEDS: SODIUM CHLORIDE 0.9% INJ 10 ML SYR IV SCH ×2 (05:24→18:00)
[2017-01-27] MEDS: HEPARIN SOD (PORCINE) 5000 UNITS/ML VIAL SC SCH ×3 (05:24→21:53)
[2017-01-27 06:00] VITALS: BP 152/68
[2017-01-27 06:59] LABS: MEAN CORPUSCULAR HEMOGLOBIN 29.3 pg (27.0-33.0); MEAN CORPUSCULAR HGB CONC 34.3 g/dl (32.0-36.5); MEAN CORPUSCULAR VOLUME 85.3 fl (80.0-96.0); RED CELL DISTRIBUTION WIDTH 13.4 % (11.5-14.5); WHITE BLOOD COUNT 8.5 K/mm3 (4.0-10.0)
[2017-01-27] MEDS ORDERED: PERMETHRIN 5% CREAM 60 GM EXT ONE (07:00)
[2017-01-27 07:56] LABS: ALT/SGPT 24 U/L (12-78); AST/SGOT 24 U/L (15-37)
[2017-01-27 08:40] LABS: BLOOD UREA NITROGEN 16 MG/DL (7-18); CREATININE FOR GFR 0.72 MG/DL (0.55-1.02); GLOMERULAR FILTRATION RATE > 60.0 (>58); GLUCOSE, FASTING 261 MG/DL (70-105); SODIUM LEVEL 135 MEQ/L (136-145)
[2017-01-27 08:41] LABS: ALBUMIN 2.4 GM/DL (3.2-5.2); ALBUMIN/GLOBULIN RATIO 0.59 (1.00-1.93); ALKALINE PHOSPHATASE 109 U/L (45-117); ANION GAP 9 MEQ/L (8-16); BILIRUBIN,TOTAL 0.2 MG/DL (0.2-1.0); CALCIUM LEVEL 8.4 MG/DL (8.5-10.1); CARBON DIOXIDE LEVEL 28 MEQ/L (21-32); CHLORIDE LEVEL 98 MEQ/L (98-107); POTASSIUM SERUM 4.3 MEQ/L (3.5-5.1); TOTAL PROTEIN 6.5 GM/DL (6.4-8.2)
[2017-01-27] MEDS: EUCERIN 120GM CREAM EXT SCH ×2 (09:00→21:52)
[2017-01-27] MEDS: TRIAMCINOLONE ACET 0.1% OINTMENT 80 GM EXT SCH ×2 (09:00→21:53)
[2017-01-27] MEDS: LEVEMIR (INSULIN DETEMIR) 1 UNITS/0.01ML SC SCH ×2 (09:12→21:51)
[2017-01-27] MEDS: HumaLOG INSULIN (NovoLOG) PER UNIT SC SCH ×3 (09:12→18:03)
[2017-01-27] MEDS: DULoxetine 30 MG CAP (CYMBALTA) PO SCH (09:13)
[2017-01-27] MEDS: DOCUSATE SODIUM 100 MG CAP PO SCH ×2 (09:13→21:51)
[2017-01-27] MEDS: OXcarbazepine 150 MG TAB PO SCH ×2 (09:13→21:50)
[2017-01-27] MEDS: FUROSEMIDE 40 MG TAB PO SCH (09:13)
[2017-01-27] MEDS: LISINOPRIL 5 MG TAB PO SCH (09:13)
[2017-01-27] MEDS: hydrOXYzine 25 MG TAB PO SCH ×2 (09:13→21:51)
--- NOTE | 2017-01-27 16:31 | CR ---
DATE OF CONSULTATION: 01/26/2017 Telemedicine consultation. CONSULTATION REQUESTED BY: Dr. Thomas and Dr. Monaco regarding chronic osteomyelitis in a diabetic right foot wound, Krishnamurthy grade 3. HISTORY OF PRESENT ILLNESS: A 51-year-old poorly controlled neuropathic diabetic female status post bilateral total transmetatarsal amputations, treated at the [facility] for nonhealing osteomyelitis involving the previous transmetatarsal amputation site of the right foot. The patient has undergone debridement and intermittent hyperbaric oxygen (HBO)therapy for this along with total contact casting in the past, all of which have not improved her clinical situation. The patient was briefly evaluated by our wound clinic a year and half ago, but due to a grossly infected right foot, compliance issues and a significantly elevated A1c, she was not deemed an appropriate candidate to begin hyperbaric oxygen therapy. She therefore went to the [facility] wound center and was lost to follow-up. The patient has been on multiple courses of intravenous (IV) antibiotics to no avail and is now hospitalized for infectious disease consultation regarding IV antibiotic therapy for her chronic osteomyelitis involving her right transmetatarsal amputation site. She was admitted on 01/02/2017 Recent wound culture has shown group B streptococcus, and the patient is on vancomycin. She was seen by Dr. Alicea most recently while in the hospital for local wound debridement, which was performed on 2016. . On physical examination, there is 2+ edema involving the right lower extremity. The dorsal aspect of the right foot is erythematous and edematous. The transmetatarsal amputation suture line has dehisced with a medial wound measuring 4.2 cm x 3.0 cm with a wound depth of 2.1 cm. There is palpable bone according to the nurse performing the measurements at bedside. The wound drainage is moderate to heavy , seropurulent, and the periwound shows erythema with localized ischemic changes to the wound edges. On the lateral aspect of the right mid foot there is a second wound measuring 2.2 cm x 1.9 cm with a depth of 0.2 cm. This wound base shows granulation tissue with superficial slough. The drainage from this wound is minimal, serosanguineous without odor, and there are no deep structures seen involving the wound base. Wound edges are fixed, and the periwound does not show erythema, maceration, or ischemic change. At this point, with normal renal function, a CT angiogram should be obtained to ensure proper vascularity to the right lower extremity. As no recent hemoglobin A1c has been ordered, this will also be obtained. Wound care should include cleansing the wound with Vashe wound cleanser for 10 minutes, irrigating the wound with sterile saline, and applying alginate to the wound bed, or if the drainage is significant, substituting Drawtex for the alginate which would be more absorptive. In either case superficial wound covering with either an OPTi lock or foam dressing should be utilized.. This is then secured with a Kerlix wrap and should be changed on a daily basis. I also discussed with the patient, if she has considered a below-knee amputation as a possible treatment solution to this chronic problem, which has not changed or shown signs of improvement over the last year and half, This would allow the patient to begin physical therapy and improve her lifestyle in general. Again compliance and patient accountability along with a clear understanding of her underlying clinical problem would be required. She has indicated that she is not interested in this treatment approach. In an effort to avoid gravitational dependent edema the patient should be limited in terms of sitting for prolonged periods of time and should placed on nonweightbearing status and limited in physical therapy to range of motion and strengthening of her quadriceps It is my impression and the patient's wish to return [facility] for continued treatment once this acute exacerbation of her wound has been controlled. JACOB
[2017-01-27] MEDS: ATORVASTATIN 10 MG TAB PO SCH (21:51)
[2017-01-28] MEDS: NS 1,000 ML IV SCH ×2 (00:07→11:31)
[2017-01-28] MEDS: SODIUM CHLORIDE 0.9% INJ 10 ML SYR IV SCH ×2 (05:33→17:10)
[2017-01-28 06:00] VITALS: BP 168/88
--- NOTE | 2017-01-28 06:14 | PHACANCOPD ---
PHARMACY VANCOMYCIN DOSING Pt Demographics Demographics Patient Age:51 , Weight:0.000 , Gender: female Adjusted Body Weight Date: 01/09/17, Adjusted Body Weight: [78] Kg Events Past 24 Hours Events Past 24 Hours: NO: Dialysis, Diuretic Therapy, Change in CrCl, Fever, Elevation in WBC, Pending Diagnostics, Pending Procedures, Other Vancomycin Vancomycin indication: osteomyelitis Vancomycin Target Ranges: 15-20 mcg/ml Vancomycin Load Y/N: No Load Dose Date Time Vancomycin Load Dose: Date: Time: Vancomycin Dose Date: 01/26/17. Current Vancomycin Dose: [1GM IV Q12H, EXTRA 1GM DOSE TODAY] Date: 01/09/17. Current Vancomycin Dose: [1g IV q8h @16] Intermittent Dosing?: No Labs Labs Item Value Date Time White Blood Count 8.5 K/mm3 01/27/17 0642 Creatinine 0.72 MG/DL 01/27/17 0642 Vancomycin Level Trough 17.5 UG/ML 01/28/17 0517 Vital Signs Label Value Date Time Patient Temperature 97.4 degrees F 01/27/17 0600 Temperature Source Temporal 01/27/17 0600 Creatinine Clearance Date:01/09/17. Creatinine Clearance: [>100 ml/min]. Assessment and Plan Maintaining Current Dose?: Yes Reason for dose change: No Dose Change Pharmacist Note Pharmacist Note Date: 01/09/17. Pharmacist note: Trough of 17.5 is within target range. Will continue current dosing. Will continue to monitor and make adjustments as needed. SHANNON GUZMAN PHARMACY Jan 28, 2017 06:14
[2017-01-28] MEDS: VANCOMYCIN HCL 1,000 MG, VIAL MATE ADAPTER 1 EACH in D5W 250 ML IV SCH ×2 (06:32→17:48)
[2017-01-28] MEDS: HEPARIN SOD (PORCINE) 5000 UNITS/ML VIAL SC SCH ×3 (06:34→21:18)
[2017-01-28] MEDS: EUCERIN 120GM CREAM EXT SCH ×2 (08:37→21:17)
[2017-01-28] MEDS: hydrOXYzine 25 MG TAB PO SCH ×2 (08:38→21:18)
[2017-01-28] MEDS: DOCUSATE SODIUM 100 MG CAP PO SCH ×2 (08:38→21:18)
[2017-01-28] MEDS: LISINOPRIL 5 MG TAB PO SCH (08:38)
[2017-01-28] MEDS: TRIAMCINOLONE ACET 0.1% OINTMENT 80 GM EXT SCH ×2 (08:38→21:18)
[2017-01-28] MEDS: FUROSEMIDE 40 MG TAB PO SCH (08:39)
[2017-01-28] MEDS: DULoxetine 30 MG CAP (CYMBALTA) PO SCH (08:39)
[2017-01-28] MEDS: OXcarbazepine 150 MG TAB PO SCH ×2 (08:39→21:18)
[2017-01-28] MEDS: HumaLOG INSULIN (NovoLOG) PER UNIT SC SCH ×3 (08:40→17:48)
[2017-01-28] MEDS: LEVEMIR (INSULIN DETEMIR) 1 UNITS/0.01ML SC SCH ×2 (08:41→21:17)
[2017-01-28] MEDS: ONDANSETRON 4 MG ORAL DISINTEGRATING TAB (S0181) SL PRN (17:55)
[2017-01-28] MEDS: ATORVASTATIN 10 MG TAB PO SCH (21:18)
[2017-01-29 06:00] VITALS: BP 146/82
[2017-01-29] MEDS: VANCOMYCIN HCL 1,000 MG, VIAL MATE ADAPTER 1 EACH in D5W 250 ML IV SCH ×2 (06:13→17:57)
[2017-01-29] MEDS: HEPARIN SOD (PORCINE) 5000 UNITS/ML VIAL SC SCH ×3 (06:13→21:46)
[2017-01-29] MEDS: SODIUM CHLORIDE 0.9% INJ 10 ML SYR IV SCH ×2 (06:14→17:56)
[2017-01-29] MEDS: LEVEMIR (INSULIN DETEMIR) 1 UNITS/0.01ML SC SCH ×2 (09:26→21:48)
[2017-01-29] MEDS: metFORMIN (GLUCOPHAGE) 500 MG TAB PO SCH ×2 (09:26→17:56)
[2017-01-29] MEDS: HumaLOG INSULIN (NovoLOG) PER UNIT SC SCH ×3 (09:26→17:56)
[2017-01-29] MEDS: DOCUSATE SODIUM 100 MG CAP PO SCH ×2 (09:26→21:48)
[2017-01-29] MEDS: DULoxetine 30 MG CAP (CYMBALTA) PO SCH (09:27)
[2017-01-29] MEDS: LISINOPRIL 5 MG TAB PO SCH (09:27)
[2017-01-29] MEDS: OXcarbazepine 150 MG TAB PO SCH ×2 (09:27→21:48)
[2017-01-29] MEDS: hydrOXYzine 25 MG TAB PO SCH ×2 (09:27→21:48)
[2017-01-29] MEDS: FUROSEMIDE 40 MG TAB PO SCH (09:27)
[2017-01-29] MEDS: TRIAMCINOLONE ACET 0.1% OINTMENT 80 GM EXT SCH ×2 (09:28→21:00)
[2017-01-29] MEDS: EUCERIN 120GM CREAM EXT SCH ×2 (09:28→21:00)
[2017-01-29] MEDS: NYSTATIN 100,000 UNITS/GM TOPICAL PWD 15 GM TOP PRN (09:28)
[2017-01-29] MEDS: ATORVASTATIN 10 MG TAB PO SCH (21:48)
[2017-01-30 06:00] VITALS: BP 133/85
[2017-01-30] MEDS: HEPARIN SOD (PORCINE) 5000 UNITS/ML VIAL SC SCH ×3 (06:21→21:22)
[2017-01-30] MEDS: VANCOMYCIN HCL 1,000 MG, VIAL MATE ADAPTER 1 EACH in D5W 250 ML IV SCH ×2 (06:22→17:49)
[2017-01-30] MEDS: SODIUM CHLORIDE 0.9% INJ 10 ML SYR IV SCH ×2 (07:58→17:45)
[2017-01-30] MEDS: LEVEMIR (INSULIN DETEMIR) 1 UNITS/0.01ML SC SCH ×2 (07:59→21:22)
[2017-01-30] MEDS: FUROSEMIDE 40 MG TAB PO SCH (08:00)
[2017-01-30] MEDS: OXcarbazepine 150 MG TAB PO SCH ×2 (08:00→21:24)
[2017-01-30] MEDS: metFORMIN (GLUCOPHAGE) 500 MG TAB PO SCH ×2 (08:00→17:48)
[2017-01-30] MEDS: DULoxetine 30 MG CAP (CYMBALTA) PO SCH (08:00)
[2017-01-30] MEDS: HumaLOG INSULIN (NovoLOG) PER UNIT SC SCH ×3 (08:00→17:47)
[2017-01-30] MEDS: DOCUSATE SODIUM 100 MG CAP PO SCH ×2 (08:00→21:23)
[2017-01-30] MEDS: hydrOXYzine 25 MG TAB PO SCH ×2 (08:03→21:24)
[2017-01-30] MEDS: LISINOPRIL 5 MG TAB PO SCH (08:03)
[2017-01-30] MEDS: TRIAMCINOLONE ACET 0.1% OINTMENT 80 GM EXT SCH ×2 (08:04→21:21)
[2017-01-30] MEDS: EUCERIN 120GM CREAM EXT SCH ×2 (08:04→21:22)
[2017-01-30 16:13] LABS: MEAN CORPUSCULAR HEMOGLOBIN 29.1 pg (27.0-33.0); MEAN CORPUSCULAR HGB CONC 34.7 g/dl (32.0-36.5); RED CELL DISTRIBUTION WIDTH 13.5 % (11.5-14.5); WHITE BLOOD COUNT 10.8 K/mm3 (4.0-10.0)
[2017-01-30] MEDS: PERCOCET 5MG/325MG TAB PO PRN (21:23)
[2017-01-30] MEDS: ATORVASTATIN 10 MG TAB PO SCH (21:23)
[2017-01-31 06:00] VITALS: BP 122/60
[2017-01-31] MEDS: HEPARIN SOD (PORCINE) 5000 UNITS/ML VIAL SC SCH ×3 (06:20→21:55)
[2017-01-31] MEDS: VANCOMYCIN HCL 1,000 MG, VIAL MATE ADAPTER 1 EACH in D5W 250 ML IV SCH ×2 (06:20→17:45)
[2017-01-31] MEDS: LEVEMIR (INSULIN DETEMIR) 1 UNITS/0.01ML SC SCH ×2 (08:29→21:55)
[2017-01-31] MEDS: LISINOPRIL 5 MG TAB PO SCH (08:30)
[2017-01-31] MEDS: HumaLOG INSULIN (NovoLOG) PER UNIT SC SCH ×3 (08:30→17:46)
[2017-01-31] MEDS: OXcarbazepine 150 MG TAB PO SCH ×2 (08:30→21:55)
[2017-01-31] MEDS: metFORMIN (GLUCOPHAGE) 500 MG TAB PO SCH ×2 (08:31→17:45)
[2017-01-31] MEDS: DULoxetine 30 MG CAP (CYMBALTA) PO SCH (08:31)
[2017-01-31] MEDS: DOCUSATE SODIUM 100 MG CAP PO SCH ×2 (08:31→21:55)
[2017-01-31] MEDS: hydrOXYzine 25 MG TAB PO SCH ×2 (08:31→21:56)
[2017-01-31] MEDS: FUROSEMIDE 40 MG TAB PO SCH (08:31)
[2017-01-31] MEDS: TRIAMCINOLONE ACET 0.1% OINTMENT 80 GM EXT SCH ×2 (08:32→21:56)
[2017-01-31] MEDS: EUCERIN 120GM CREAM EXT SCH ×2 (08:32→21:56)
[2017-01-31] MEDS: SODIUM CHLORIDE 0.9% INJ 10 ML SYR IV SCH ×2 (08:32→17:45)
[2017-01-31] MEDS: PERCOCET 5MG/325MG TAB PO PRN (15:09)
[2017-01-31] MEDS ORDERED: HEPARIN SOD (PORCINE) 5000 UNITS/ML VIAL As Ordered ONE (21:50)
[2017-01-31] MEDS: ATORVASTATIN 10 MG TAB PO SCH (21:55)
[2017-02-01] MEDS: PERCOCET 5MG/325MG TAB PO PRN ×3 (00:13→22:53)
[2017-02-01] MEDS: HEPARIN SOD (PORCINE) 5000 UNITS/ML VIAL SC SCH ×2 (05:19→22:18)
[2017-02-01] MEDS: VANCOMYCIN HCL 1,000 MG, VIAL MATE ADAPTER 1 EACH in D5W 250 ML IV SCH ×2 (05:19→18:13)
[2017-02-01 05:55] VITALS: BP 137/83
[2017-02-01] MEDS: SODIUM CHLORIDE 0.9% INJ 10 ML SYR IV SCH ×2 (06:31→18:13)
[2017-02-01] MEDS: HumaLOG INSULIN (NovoLOG) PER UNIT SC SCH ×3 (08:56→18:13)
[2017-02-01] MEDS: DOCUSATE SODIUM 100 MG CAP PO SCH ×2 (08:57→22:04)
[2017-02-01] MEDS: FUROSEMIDE 40 MG TAB PO SCH (08:57)
[2017-02-01] MEDS: LISINOPRIL 5 MG TAB PO SCH (08:57)
[2017-02-01] MEDS: OXcarbazepine 150 MG TAB PO SCH ×2 (08:57→22:04)
[2017-02-01] MEDS: LEVEMIR (INSULIN DETEMIR) 1 UNITS/0.01ML SC SCH ×2 (08:57→22:05)
[2017-02-01] MEDS: hydrOXYzine 25 MG TAB PO SCH ×2 (08:57→22:04)
[2017-02-01] MEDS: EUCERIN 120GM CREAM EXT SCH ×2 (08:58→22:08)
[2017-02-01] MEDS: metFORMIN (GLUCOPHAGE) 500 MG TAB PO SCH ×2 (08:58→18:13)
[2017-02-01] MEDS: TRIAMCINOLONE ACET 0.1% OINTMENT 80 GM EXT SCH ×2 (08:58→22:08)
[2017-02-01] MEDS: DULoxetine 30 MG CAP (CYMBALTA) PO SCH (08:58)
[2017-02-01 14:00] VITALS: BP 135/78
[2017-02-01] MEDS ORDERED: HEPARIN SOD (PORCINE) 5000 UNITS/ML VIAL As Ordered ONE (21:54)
[2017-02-01] MEDS: ATORVASTATIN 10 MG TAB PO SCH (22:04)
[2017-02-01] MEDS: TERCONAZOLE-7 VAGINAL CREAM PV SCH (22:13)
[2017-02-02] MEDS: SODIUM CHLORIDE 0.9% INJ 10 ML SYR IV SCH ×2 (05:34→17:51)
[2017-02-02] MEDS: HEPARIN SOD (PORCINE) 5000 UNITS/ML VIAL SC SCH ×3 (05:35→21:05)
[2017-02-02] MEDS: VANCOMYCIN HCL 1,000 MG, VIAL MATE ADAPTER 1 EACH in D5W 250 ML IV SCH ×2 (05:35→17:52)
[2017-02-02 06:07] VITALS: BP 140/64
[2017-02-02] MEDS: LEVEMIR (INSULIN DETEMIR) 1 UNITS/0.01ML SC SCH ×2 (08:02→20:56)
[2017-02-02] MEDS: LISINOPRIL 5 MG TAB PO SCH (08:03)
[2017-02-02] MEDS: HumaLOG INSULIN (NovoLOG) PER UNIT SC SCH ×3 (08:03→17:51)
[2017-02-02] MEDS: DULoxetine 30 MG CAP (CYMBALTA) PO SCH (08:03)
[2017-02-02] MEDS: EUCERIN 120GM CREAM EXT SCH ×2 (08:04→20:59)
[2017-02-02] MEDS: hydrOXYzine 25 MG TAB PO SCH ×2 (08:04→20:55)
[2017-02-02] MEDS: metFORMIN (GLUCOPHAGE) 500 MG TAB PO SCH ×2 (08:04→17:50)
[2017-02-02] MEDS: DOCUSATE SODIUM 100 MG CAP PO SCH ×2 (08:04→20:55)
[2017-02-02] MEDS: FUROSEMIDE 40 MG TAB PO SCH (08:04)
[2017-02-02] MEDS: OXcarbazepine 150 MG TAB PO SCH ×2 (08:04→20:55)
[2017-02-02] MEDS: TRIAMCINOLONE ACET 0.1% OINTMENT 80 GM EXT SCH ×2 (08:05→20:59)
[2017-02-02] MEDS: PERCOCET 5MG/325MG TAB PO PRN ×2 (08:09→20:55)
[2017-02-02] MEDS: ATORVASTATIN 10 MG TAB PO SCH (20:55)
[2017-02-02] MEDS: TERCONAZOLE-7 VAGINAL CREAM PV SCH (20:59)
[2017-02-03 05:50] LABS: ANION GAP 11 MEQ/L (8-16); BLOOD UREA NITROGEN 19 MG/DL (7-18); CALCIUM LEVEL 8.7 MG/DL (8.5-10.1); CARBON DIOXIDE LEVEL 25 MEQ/L (21-32); CHLORIDE LEVEL 102 MEQ/L (98-107); CREATININE FOR GFR 0.68 MG/DL (0.55-1.02); GLOMERULAR FILTRATION RATE > 60.0 (>58); GLUCOSE, FASTING 205 MG/DL (70-105); POTASSIUM SERUM 4.4 MEQ/L (3.5-5.1); SODIUM LEVEL 138 MEQ/L (136-145)
[2017-02-03] MEDS: HEPARIN SOD (PORCINE) 5000 UNITS/ML VIAL SC SCH ×3 (05:59→21:15)
[2017-02-03] MEDS: SODIUM CHLORIDE 0.9% INJ 10 ML SYR IV SCH ×2 (05:59→18:27)
[2017-02-03 06:00] VITALS: BP 142/82
[2017-02-03] MEDS: VANCOMYCIN HCL 1,000 MG, VIAL MATE ADAPTER 1 EACH in D5W 250 ML IV SCH (06:16)
[2017-02-03] MEDS: HumaLOG INSULIN (NovoLOG) PER UNIT SC SCH ×3 (09:23→18:32)
[2017-02-03] MEDS: LEVEMIR (INSULIN DETEMIR) 1 UNITS/0.01ML SC SCH ×2 (09:24→21:15)
[2017-02-03] MEDS: OXcarbazepine 150 MG TAB PO SCH ×2 (09:24→21:16)
[2017-02-03] MEDS: DULoxetine 30 MG CAP (CYMBALTA) PO SCH (09:24)
[2017-02-03] MEDS: hydrOXYzine 25 MG TAB PO SCH ×2 (09:24→21:16)
[2017-02-03] MEDS: DOCUSATE SODIUM 100 MG CAP PO SCH ×2 (09:24→21:16)
[2017-02-03] MEDS: FUROSEMIDE 40 MG TAB PO SCH (09:25)
[2017-02-03] MEDS: metFORMIN (GLUCOPHAGE) 500 MG TAB PO SCH ×2 (09:25→18:28)
[2017-02-03] MEDS: EUCERIN 120GM CREAM EXT SCH ×2 (09:26→21:17)
[2017-02-03] MEDS: TRIAMCINOLONE ACET 0.1% OINTMENT 80 GM EXT SCH ×2 (09:26→21:17)
[2017-02-03] MEDS: LISINOPRIL 5 MG TAB PO SCH (09:27)
[2017-02-03] MEDS: PERCOCET 5MG/325MG TAB PO PRN ×2 (09:41→18:29)
--- NOTE | 2017-02-03 12:00 | PHACANCOPD ---
PHARMACY VANCOMYCIN DOSING Pt Demographics Demographics Patient Age:51 , Weight:115.700 , Gender: female Adjusted Body Weight Date: 01/09/17, Adjusted Body Weight: [78] Kg Events Past 24 Hours Events Past 24 Hours: NO: Dialysis, Diuretic Therapy, Change in CrCl, Fever, Elevation in WBC, Pending Diagnostics, Pending Procedures, Other Vancomycin Vancomycin indication: osteomyelitis Vancomycin Target Ranges: 15-20 mcg/ml Vancomycin Load Y/N: No Load Dose Date Time Vancomycin Load Dose: Date: Time: Vancomycin Dose Date: 02/03/17. Current Vancomycin Dose: [1250MG IV Q12H @ 1800+] Date: 01/26/17. Current Vancomycin Dose: [1GM IV Q12H, EXTRA 1GM DOSE TODAY] Date: 01/09/17. Current Vancomycin Dose: [1g IV q8h @16] Intermittent Dosing?: No Labs Labs Item Value Date Time Creatinine 0.68 MG/DL 02/03/17 0521 White Blood Count 11.4 K/mm3 H 01/11/17 0528 White Blood Count 9.2 K/mm3 01/20/17 0623 White Blood Count 8.5 K/mm3 01/27/17 0642 White Blood Count 10.8 K/mm3 H 01/30/17 1603 Vancomycin Level Trough 10.9 UG/ML 01/26/17 0652 Vancomycin Level Trough 17.5 UG/ML 01/28/17 0517 Vancomycin Level Trough 11.3 UG/ML 02/03/17 0521 Creatinine Clearance Date:01/09/17. Creatinine Clearance: [>100 ml/min]. Pending Labs VANCO TROUGH 02/05 @ 0500 Assessment and Plan Maintaining Current Dose?: No Reason for dose change: Trough too low Pharmacist Note Pharmacist Note Date: 02/03/17. Pharmacist note: Trough was subtherapeutic 11.3. Dose was changed to 1250mg iv q12h with a trough scheduled to be drawn after 3 doses. Continue to monitor renal function and adjust dose as needed. Date: 01/09/17. Pharmacist note: Trough of 17.5 is within target range. Will continue current dosing. Will continue to monitor and make adjustments as needed. ANGEL HAWK PHARMACY Feb 03, 2017 12:00
[2017-02-03 14:00] VITALS: BP 140/85
[2017-02-03] MEDS: VANCOMYCIN HCL 1,250 MG in D5W 250 ML IV SCH (18:27)
[2017-02-03] MEDS: ATORVASTATIN 10 MG TAB PO SCH (21:16)
[2017-02-03] MEDS: TERCONAZOLE-7 VAGINAL CREAM PV SCH (21:17)
[2017-02-04] MEDS: HEPARIN SOD (PORCINE) 5000 UNITS/ML VIAL SC SCH ×3 (05:29→21:53)
[2017-02-04] MEDS: SODIUM CHLORIDE 0.9% INJ 10 ML SYR IV SCH ×2 (05:30→18:23)
[2017-02-04] MEDS: VANCOMYCIN HCL 1,250 MG in D5W 250 ML IV SCH ×2 (05:31→18:24)
[2017-02-04 06:00] VITALS: BP 152/72
[2017-02-04] MEDS: DOCUSATE SODIUM 100 MG CAP PO SCH ×2 (08:37→21:52)
[2017-02-04] MEDS: HumaLOG INSULIN (NovoLOG) PER UNIT SC SCH ×3 (08:37→18:23)
[2017-02-04] MEDS: LEVEMIR (INSULIN DETEMIR) 1 UNITS/0.01ML SC SCH ×2 (08:37→21:54)
[2017-02-04] MEDS: metFORMIN (GLUCOPHAGE) 500 MG TAB PO SCH ×2 (08:38→18:24)
[2017-02-04] MEDS: OXcarbazepine 150 MG TAB PO SCH ×2 (08:38→21:53)
[2017-02-04] MEDS: LISINOPRIL 5 MG TAB PO SCH (08:38)
[2017-02-04] MEDS: DULoxetine 30 MG CAP (CYMBALTA) PO SCH (08:38)
[2017-02-04] MEDS: FUROSEMIDE 40 MG TAB PO SCH (08:38)
[2017-02-04] MEDS: hydrOXYzine 25 MG TAB PO SCH ×2 (08:38→21:52)
[2017-02-04] MEDS: TRIAMCINOLONE ACET 0.1% OINTMENT 80 GM EXT SCH ×2 (08:39→21:55)
[2017-02-04] MEDS: EUCERIN 120GM CREAM EXT SCH ×2 (08:39→21:55)
[2017-02-04] MEDS: ATORVASTATIN 10 MG TAB PO SCH (21:52)
[2017-02-04] MEDS: PERCOCET 5MG/325MG TAB PO PRN (21:53)
[2017-02-04] MEDS: TERCONAZOLE-7 VAGINAL CREAM PV SCH (21:55)
[2017-02-05 06:00] VITALS: BP 129/58
[2017-02-05] MEDS: HEPARIN SOD (PORCINE) 5000 UNITS/ML VIAL SC SCH ×3 (06:32→22:01)
[2017-02-05] MEDS: PERCOCET 5MG/325MG TAB PO PRN ×3 (06:32→22:01)
[2017-02-05] MEDS: VANCOMYCIN HCL 1,250 MG in D5W 250 ML IV SCH ×2 (06:33→18:34)
[2017-02-05] MEDS: SODIUM CHLORIDE 0.9% INJ 10 ML SYR IV SCH ×2 (06:34→18:34)
--- NOTE | 2017-02-05 07:06 | PHACANCOPD ---
PHARMACY VANCOMYCIN DOSING Pt Demographics Demographics Patient Age:51 , Weight:115.700 , Gender: female Adjusted Body Weight Date: 01/09/17, Adjusted Body Weight: [78] Kg Vancomycin Vancomycin indication: osteomyelitis Vancomycin Target Ranges: 15-20 mcg/ml Vancomycin Load Y/N: No Load Dose Date Time Vancomycin Load Dose: Date: Time: Vancomycin Dose Date: 02/03/17. Current Vancomycin Dose: [1250MG IV Q12H @ 1800+] Date: 01/26/17. Current Vancomycin Dose: [1GM IV Q12H, EXTRA 1GM DOSE TODAY] Date: 01/09/17. Current Vancomycin Dose: [1g IV q8h @16] Intermittent Dosing?: No Labs Labs Item Value Date Time Vancomycin Level Trough 17.5 UG/ML 01/28/17 0517 Vancomycin Level Trough 11.3 UG/ML 02/03/17 0521 Vancomycin Level Trough 18.0 UG/ML 02/05/17 0536 Creatinine 0.68 MG/DL 02/03/17 0521 White Blood Count 9.2 K/mm3 01/20/17 0623 White Blood Count 8.5 K/mm3 01/27/17 0642 White Blood Count 10.8 K/mm3 H 01/30/17 1603 Creatinine Clearance Date:01/09/17. Creatinine Clearance: [>100 ml/min]. Pending Labs \ Assessment and Plan Maintaining Current Dose?: Yes Reason for dose change: No Dose Change Pharmacist Note Pharmacist Note Date: 02/05/17. Pharmacist note: trough returned at 18. Continue current dosing and monitor renal function. Adjust dose as needed. Date: 02/03/17. Pharmacist note: Trough was subtherapeutic 11.3. Dose was changed to 1250mg iv q12h with a trough scheduled to be drawn after 3 doses. Continue to monitor renal function and adjust dose as needed. Date: 01/09/17. Pharmacist note: Trough of 17.5 is within target range. Will continue current dosing. Will continue to monitor and make adjustments as needed. ANGEL HAWK PHARMACY Feb 05, 2017 07:06
[2017-02-05] MEDS: DOCUSATE SODIUM 100 MG CAP PO SCH ×2 (08:28→22:01)
[2017-02-05] MEDS: HumaLOG INSULIN (NovoLOG) PER UNIT SC SCH ×3 (08:28→19:20)
[2017-02-05] MEDS: metFORMIN (GLUCOPHAGE) 500 MG TAB PO SCH ×2 (08:28→18:35)
[2017-02-05] MEDS: LEVEMIR (INSULIN DETEMIR) 1 UNITS/0.01ML SC SCH ×2 (08:28→22:02)
[2017-02-05] MEDS: OXcarbazepine 150 MG TAB PO SCH ×2 (08:28→22:01)
[2017-02-05] MEDS: hydrOXYzine 25 MG TAB PO SCH ×2 (08:28→22:01)
[2017-02-05] MEDS: FUROSEMIDE 40 MG TAB PO SCH (08:29)
[2017-02-05] MEDS: EUCERIN 120GM CREAM EXT SCH ×2 (08:53→21:00)
[2017-02-05] MEDS: TRIAMCINOLONE ACET 0.1% OINTMENT 80 GM EXT SCH ×2 (08:54→21:00)
[2017-02-05] MEDS ORDERED: GLUCAGON FOR INJ 1 MG VIAL (J1610) SC PRN (19:00)
[2017-02-05] MEDS ORDERED: NYSTATIN 100,000 UNITS/GM TOPICAL PWD 15 GM TOP PRN (19:00)
[2017-02-05] MEDS ORDERED: DEXTROSE 50% 50 ML SYRINGE IV PRN (19:00)
[2017-02-05] MEDS ORDERED: GLUCOSE 4 GM CHEW TABLET PO PRN (19:00)
[2017-02-05] MEDS: TERCONAZOLE-7 VAGINAL CREAM PV SCH (21:00)
[2017-02-06] MEDS: VANCOMYCIN HCL 1,250 MG in D5W 250 ML IV SCH (05:48)
[2017-02-06] MEDS: HEPARIN SOD (PORCINE) 5000 UNITS/ML VIAL SC SCH ×3 (05:48→21:40)
[2017-02-06] MEDS: SODIUM CHLORIDE 0.9% INJ 10 ML SYR IV SCH ×2 (05:50→17:39)
[2017-02-06 06:00] VITALS: BP 148/68
[2017-02-06] MEDS: PERCOCET 5MG/325MG TAB PO PRN ×3 (06:12→20:07)
[2017-02-06] MEDS: LISINOPRIL 5 MG TAB PO SCH (08:22)
[2017-02-06] MEDS: LEVEMIR (INSULIN DETEMIR) 1 UNITS/0.01ML SC SCH ×2 (08:22→20:07)
[2017-02-06] MEDS: HumaLOG INSULIN (NovoLOG) PER UNIT SC SCH ×3 (08:23→17:39)
[2017-02-06] MEDS: FUROSEMIDE 40 MG TAB PO SCH (08:23)
[2017-02-06] MEDS: hydrOXYzine 25 MG TAB PO SCH ×2 (08:23→20:08)
[2017-02-06] MEDS: metFORMIN (GLUCOPHAGE) 500 MG TAB PO SCH ×2 (08:23→17:39)
[2017-02-06] MEDS: OXcarbazepine 150 MG TAB PO SCH ×2 (08:23→20:08)
[2017-02-06] MEDS: DULoxetine 30 MG CAP (CYMBALTA) PO SCH (08:23)
[2017-02-06] MEDS: DOCUSATE SODIUM 100 MG CAP PO SCH ×2 (08:23→20:08)
[2017-02-06] MEDS: EUCERIN 120GM CREAM EXT SCH ×2 (09:59→20:10)
[2017-02-06] MEDS: TRIAMCINOLONE ACET 0.1% OINTMENT 80 GM EXT SCH ×2 (10:01→20:09)
[2017-02-06] MEDS: VANCOMYCIN HCL 1,000 MG, VIAL MATE ADAPTER 1 EACH in D5W 250 ML IV SCH (17:39)
[2017-02-06] MEDS: TERCONAZOLE-7 VAGINAL CREAM PV SCH (20:09)
[2017-02-06] MEDS: BACTRIM 160MG/800MG DS TAB PO SCH (22:27)
[2017-02-07] MEDS: HEPARIN SOD (PORCINE) 5000 UNITS/ML VIAL SC SCH ×3 (05:51→21:19)
[2017-02-07] MEDS: VANCOMYCIN HCL 1,000 MG, VIAL MATE ADAPTER 1 EACH in D5W 250 ML IV SCH ×2 (05:51→17:58)
[2017-02-07] MEDS: SODIUM CHLORIDE 0.9% INJ 10 ML SYR IV SCH ×2 (05:52→17:59)
[2017-02-07 06:00] VITALS: BP 135/82
[2017-02-07] MEDS: LEVEMIR (INSULIN DETEMIR) 1 UNITS/0.01ML SC SCH ×2 (08:01→21:21)
[2017-02-07] MEDS: HumaLOG INSULIN (NovoLOG) PER UNIT SC SCH ×3 (08:01→17:58)
[2017-02-07] MEDS: BACTRIM 160MG/800MG DS TAB PO SCH ×2 (08:01→21:19)
[2017-02-07] MEDS: metFORMIN (GLUCOPHAGE) 500 MG TAB PO SCH ×2 (08:02→17:59)
[2017-02-07] MEDS: DULoxetine 30 MG CAP (CYMBALTA) PO SCH (08:02)
[2017-02-07] MEDS: LISINOPRIL 5 MG TAB PO SCH (08:02)
[2017-02-07] MEDS: hydrOXYzine 25 MG TAB PO SCH ×2 (08:02→21:19)
[2017-02-07] MEDS: OXcarbazepine 150 MG TAB PO SCH ×2 (08:02→21:20)
[2017-02-07] MEDS: DOCUSATE SODIUM 100 MG CAP PO SCH ×2 (08:02→21:20)
[2017-02-07] MEDS: FUROSEMIDE 40 MG TAB PO SCH (08:02)
[2017-02-07] MEDS: PERCOCET 5MG/325MG TAB PO PRN ×2 (08:06→21:20)
[2017-02-07] MEDS: EUCERIN 120GM CREAM EXT SCH ×2 (08:07→21:21)
[2017-02-07] MEDS: TRIAMCINOLONE ACET 0.1% OINTMENT 80 GM EXT SCH ×2 (08:08→21:22)
[2017-02-07] MEDS: TERCONAZOLE-7 VAGINAL CREAM PV SCH (21:22)
[2017-02-08] MEDS: HEPARIN SOD (PORCINE) 5000 UNITS/ML VIAL SC SCH ×3 (05:37→21:35)
[2017-02-08] MEDS: VANCOMYCIN HCL 1,000 MG, VIAL MATE ADAPTER 1 EACH in D5W 250 ML IV SCH ×2 (05:38→17:52)
[2017-02-08] MEDS: SODIUM CHLORIDE 0.9% INJ 10 ML SYR IV SCH ×2 (05:38→17:48)
[2017-02-08 06:00] VITALS: BP 140/70
[2017-02-08] MEDS: BACTRIM 160MG/800MG DS TAB PO SCH ×2 (08:14→21:35)
[2017-02-08] MEDS: OXcarbazepine 150 MG TAB PO SCH ×2 (08:15→21:35)
[2017-02-08] MEDS: DULoxetine 30 MG CAP (CYMBALTA) PO SCH (08:15)
[2017-02-08] MEDS: metFORMIN (GLUCOPHAGE) 500 MG TAB PO SCH ×2 (08:15→17:47)
[2017-02-08] MEDS: LISINOPRIL 5 MG TAB PO SCH (08:15)
[2017-02-08] MEDS: DOCUSATE SODIUM 100 MG CAP PO SCH ×2 (08:15→21:35)
[2017-02-08] MEDS: FUROSEMIDE 40 MG TAB PO SCH (08:15)
[2017-02-08] MEDS: hydrOXYzine 25 MG TAB PO SCH ×2 (08:15→21:35)
[2017-02-08] MEDS: EUCERIN 120GM CREAM EXT SCH ×2 (08:16→21:36)
[2017-02-08] MEDS: TRIAMCINOLONE ACET 0.1% OINTMENT 80 GM EXT SCH ×2 (08:17→21:37)
[2017-02-08] MEDS: LEVEMIR (INSULIN DETEMIR) 1 UNITS/0.01ML SC SCH ×2 (08:22→21:35)
[2017-02-08] MEDS: HumaLOG INSULIN (NovoLOG) PER UNIT SC SCH ×3 (08:22→17:47)
[2017-02-08] MEDS ORDERED: VANCOMYCIN HCL 1,000 MG, VIAL MATE ADAPTER 1 EACH in D5W 250 ML IV ONE (12:00)
[2017-02-08] MEDS: PERCOCET 5MG/325MG TAB PO PRN (12:07)
[2017-02-08] MEDS ORDERED: HEPARIN SOD (PORCINE) 5000 UNITS/ML VIAL As Ordered ONE (21:30)
[2017-02-09] MEDS: PERCOCET 5MG/325MG TAB PO PRN ×2 (01:32→08:42)
[2017-02-09 06:00] VITALS: BP 129/60
[2017-02-09] MEDS: VANCOMYCIN HCL 1,000 MG, VIAL MATE ADAPTER 1 EACH in D5W 250 ML IV SCH ×2 (06:19→18:16)
[2017-02-09] MEDS: HEPARIN SOD (PORCINE) 5000 UNITS/ML VIAL SC SCH ×3 (06:19→22:18)
[2017-02-09] MEDS: SODIUM CHLORIDE 0.9% INJ 10 ML SYR IV SCH ×3 (06:19→18:17)
[2017-02-09] MEDS: HumaLOG INSULIN (NovoLOG) PER UNIT SC SCH ×3 (08:22→18:16)
[2017-02-09] MEDS: LEVEMIR (INSULIN DETEMIR) 1 UNITS/0.01ML SC SCH ×2 (08:23→22:18)
[2017-02-09] MEDS: FUROSEMIDE 40 MG TAB PO SCH (08:23)
[2017-02-09] MEDS: DULoxetine 30 MG CAP (CYMBALTA) PO SCH (08:23)
[2017-02-09] MEDS: metFORMIN (GLUCOPHAGE) 500 MG TAB PO SCH ×2 (08:24→18:17)
[2017-02-09] MEDS: DOCUSATE SODIUM 100 MG CAP PO SCH ×2 (08:24→22:19)
[2017-02-09] MEDS: hydrOXYzine 25 MG TAB PO SCH ×2 (08:24→22:19)
[2017-02-09] MEDS: OXcarbazepine 150 MG TAB PO SCH ×2 (08:24→22:19)
[2017-02-09] MEDS: LISINOPRIL 5 MG TAB PO SCH (08:24)
[2017-02-09] MEDS: EUCERIN 120GM CREAM EXT SCH ×2 (08:26→22:20)
[2017-02-09] MEDS: TRIAMCINOLONE ACET 0.1% OINTMENT 80 GM EXT SCH ×2 (08:26→22:21)
[2017-02-09] MEDS: BACTRIM 160MG/800MG DS TAB PO SCH ×2 (08:42→22:19)
--- NOTE | 2017-02-09 10:57 | IPNPDOC ---
Subjective Date Seen The patient was seen on 02/09/17. Subjective Chief Complaint/HPI The patient is a 51-year-old female admitted with a reason for visit of Intentional Drug Overdose. Events since last encounter States depression continuing. Plans on going to [facility] walk in clinic Psych: Reports: Depression, Denies: Thoughts of Self Harm Objective Physical Examination General Exam: Positive: Alert, No Acute Distress ENT Exam: Positive: Mucous membr. moist/pink Neck Exam: Negative: thyromegaly Chest Exam: Positive: Clear to auscultation, Normal air movement Heart Exam: Positive: Rate Normal, Normal S1, Normal S2 Abdomen Exam: Positive: Normal bowel sounds, Soft, Negative: Tenderness Extremity Exam: Positive: Other (s/p left BKA; right forefoot amputation. Wound vac in place. No surrounding erythema, swelling) Neuro Exam: Positive: Normal Speech Psych Exam: Positive: Mental status NL Assessment /Plan Problems (1) Osteomyelitis Status: Chronic Response to Treatment: Worse, Uncontrolled Problem Specific Plan: Consult Specialist Problem Text: if senior living does not take wound vac, [place] to change to pull back dressing 01/10 afebrile, WBC 12.0 (01/06 9.7)-if remains stable, SNF in AM 01/09 per ID-needs 5W vanco via PICC (changed from cefazolin 2 skin allergic rxn) 01/08 PICC placed 01/07 - Continue IV abx via PICC line and wound vac. Debridement was performed yesterday by Dr. Alicea. 01/06/17 WCX: Organism 1 STREP AGALACTIAE GROUP B QUANTITY OF GROWTH FEW Organism 2 CORYNEBACTERIUM SPECIES QUANTITY OF GROWTH MODERATE 01/05 - MRI R foot reveals persistent OM similar c/w 09/12. Pt reports that surgery previuosly done by Dr Livingston, she now follows with him for wound care in [place]. She has not been seen locally recently. Consult Dr Alicea. (2) Intentional drug overdose Status: Acute Problem Text: Increase Cymbalta to 60 mg po daily. Plans on attending Psych intake walk-in at [facility] 01/09/[address] Rosas, Psychiatry, patient is stable to discharge to senior living without [facility] admission and safe without a sitter (3) IDDM (insulin dependent diabetes mellitus) Status: Chronic Response to Treatment: Stable, Uncontrolled Problem Specific Plan: Monitor Clinically Problem Text: 01/19/17:increase levemir to 50/45, add metformin on Levemir 50/35 01/10 fair control c BG mid 100s-low 200s-increased Levemir 50/35 to 60/35 and + HD metformin 01/07 - Blood sugars are still high. Increase Levemir to 35U QHS and continue levemir 50U qAM. (KES) 01/05/17: Glucose has been consistently elevated in the high 300s. HD: Toujeo 63U BID and she has only been on levemir 50U daily here, which she received at 0900 today. Will add levemir 25U this evening and will also add an sliding scale - she normally takes novolog 20U QAC and HS at home and metfromin 1000 BID (KES) (4) Bipolar affective disorder Status: Chronic Problem Specific Plan: Consult Specialist Problem Text: 01/05 - Per Dr. Rangel's consult note recommended restarting her Trileptal 150 mg BID and Cymbalta 30 mg daily Plan/VTE VTE Prophylaxis Ordered?: Yes Plan/Urinary Catheter Reason for insertion/continuin: Critical Pt monitoring Plan Diagnostics: MRI (foot) VS, I&O, 24H, Fishbone Vital Signs/I&O Vital Signs Date Time Temp Pulse Resp B/P (MAP) Pulse Ox O2 Delivery O2 Flow Rate FiO2 02/09/17 09:12 18 02/09/17 08:24 129/60 02/09/17 06:00 98.8 83 96 02/09/17 01:32 Room Air 02/06/17 06:12 0.0 95 I&O- Last 24 Hours up to 6 AM 02/09/17 06:00 Intake Total 3060 ml Output Total 0 ml Balance 3060 ml Laboratory Data 24H LABS Laboratory Tests 2 02/08/17 11:29: Bedside Glucose (Misc Panel) 296H 02/08/17 16:36: Bedside Glucose (Misc Panel) 298H 02/08/17 20:40: Bedside Glucose (Misc Panel) 293H 02/09/17 06:47: Bedside Glucose (Misc Panel) 245H Microbiology Microbiology 02/06/17 Urine Culture - Final, Complete Enterobacter Cloacae Complex Annmarie Anderson [employer] Feb 09, 2017 10:57
[2017-02-09] MEDS: ATORVASTATIN 10 MG TAB PO SCH (22:19)
[2017-02-10 06:00] VITALS: BP 131/63
[2017-02-10] MEDS: VANCOMYCIN HCL 1,000 MG, VIAL MATE ADAPTER 1 EACH in D5W 250 ML IV SCH ×2 (06:39→18:15)
[2017-02-10] MEDS: HEPARIN SOD (PORCINE) 5000 UNITS/ML VIAL SC SCH ×3 (06:40→21:25)
[2017-02-10] MEDS: LEVEMIR (INSULIN DETEMIR) 1 UNITS/0.01ML SC SCH ×2 (08:01→21:26)
[2017-02-10] MEDS: DOCUSATE SODIUM 100 MG CAP PO SCH ×2 (08:02→21:26)
[2017-02-10] MEDS: HumaLOG INSULIN (NovoLOG) PER UNIT SC SCH ×3 (08:02→17:42)
[2017-02-10] MEDS: metFORMIN (GLUCOPHAGE) 500 MG TAB PO SCH ×2 (08:02→17:43)
[2017-02-10] MEDS: BACTRIM 160MG/800MG DS TAB PO SCH ×2 (08:02→21:26)
[2017-02-10] MEDS: LISINOPRIL 5 MG TAB PO SCH (08:02)
[2017-02-10] MEDS: FUROSEMIDE 40 MG TAB PO SCH (08:02)
[2017-02-10] MEDS: DULoxetine 30 MG CAP (CYMBALTA) PO SCH (08:03)
[2017-02-10] MEDS: hydrOXYzine 25 MG TAB PO SCH ×2 (08:05→21:26)
[2017-02-10] MEDS: OXcarbazepine 150 MG TAB PO SCH ×2 (08:06→21:26)
[2017-02-10] MEDS: EUCERIN 120GM CREAM EXT SCH ×2 (08:06→21:28)
[2017-02-10] MEDS: TRIAMCINOLONE ACET 0.1% OINTMENT 80 GM EXT SCH ×2 (08:06→21:28)
[2017-02-10] MEDS: PERCOCET 5MG/325MG TAB PO PRN ×2 (08:26→22:56)
[2017-02-10 10:17] LABS: BASO # 0.1 K/mm3 (0.0-0.2); BASO % 0.9 % (0.0-1.0); EOS # 0.4 K/mm3 (0.0-0.50); EOS % 4.5 % (0.0-3.0); LARGE UNSTAINED CELL # 0.3 K/mm3 (0.0-0.4); LYMPH % 34.7 % (24.0-44.0); MEAN CORPUSCULAR HGB CONC 34.2 g/dl (32.0-36.5); MEAN CORPUSCULAR VOLUME 84.8 fl (80.0-96.0); MONO # 0.5 K/mm3 (0.0-0.8); MONO % 5.6 % (0.0-5.0); NEUTROPHILS # 4.5 K/mm3 (1.8-7.7); NEUTROPHILS % 51.2 % (36.0-66.0); PLATELET COUNT, AUTOMATED 297 k/mm3 (150-450); RED CELL DISTRIBUTION WIDTH 13.8 % (11.5-14.5); WHITE BLOOD COUNT 8.8 K/mm3 (4.0-10.0)
[2017-02-10 11:04] LABS: CALCIUM LEVEL 8.9 MG/DL (8.5-10.1); CREATININE FOR GFR 1.08 MG/DL (0.55-1.02); GLOMERULAR FILTRATION RATE 57.4 (>58); POTASSIUM SERUM 4.8 MEQ/L (3.5-5.1)
[2017-02-10] MEDS: SODIUM CHLORIDE 0.9% INJ 10 ML SYR IV SCH (18:00)
[2017-02-10] MEDS: ATORVASTATIN 10 MG TAB PO SCH (21:26)
[2017-02-11] MEDS: SODIUM CHLORIDE 0.9% INJ 10 ML SYR IV SCH ×2 (05:43→17:29)
[2017-02-11] MEDS: HEPARIN SOD (PORCINE) 5000 UNITS/ML VIAL SC SCH ×3 (05:43→20:59)
[2017-02-11] MEDS: VANCOMYCIN HCL 1,000 MG, VIAL MATE ADAPTER 1 EACH in D5W 250 ML IV SCH ×2 (05:44→17:31)
[2017-02-11 06:00] VITALS: BP 135/81
[2017-02-11] MEDS: HumaLOG INSULIN (NovoLOG) PER UNIT SC SCH ×3 (08:28→17:26)
[2017-02-11] MEDS: hydrOXYzine 25 MG TAB PO SCH ×2 (08:29→21:00)
[2017-02-11] MEDS: FUROSEMIDE 40 MG TAB PO SCH (08:29)
[2017-02-11] MEDS: DOCUSATE SODIUM 100 MG CAP PO SCH ×2 (08:29→21:00)
[2017-02-11] MEDS: DULoxetine 30 MG CAP (CYMBALTA) PO SCH (08:29)
[2017-02-11] MEDS: LISINOPRIL 5 MG TAB PO SCH (08:29)
[2017-02-11] MEDS: BACTRIM 160MG/800MG DS TAB PO SCH (08:29)
[2017-02-11] MEDS: OXcarbazepine 150 MG TAB PO SCH ×2 (08:30→21:00)
[2017-02-11] MEDS: LEVEMIR (INSULIN DETEMIR) 1 UNITS/0.01ML SC SCH ×2 (08:30→20:59)
[2017-02-11] MEDS: metFORMIN (GLUCOPHAGE) 500 MG TAB PO SCH ×2 (08:30→17:26)
[2017-02-11] MEDS: TRIAMCINOLONE ACET 0.1% OINTMENT 80 GM EXT SCH ×2 (08:31→21:01)
[2017-02-11] MEDS: EUCERIN 120GM CREAM EXT SCH ×2 (08:31→21:01)
[2017-02-11] MEDS: PERCOCET 5MG/325MG TAB PO PRN ×2 (11:28→21:00)
--- NOTE | 2017-02-11 18:50 | IPN ---
DATE: 02/10/2017 Iliana is doing very well. She is anxious to go home. She denies any nausea, vomiting, diarrhea or abdominal pain. She had a urinary tract infection (UTI) which was treated with Bactrim, currently day number five. She has been afebrile. PHYSICAL EXAMINATION: Temperature is 98.3, pulse 87, respirations 18, blood pressure 131/63, O2 sat 96% on room air. Heart: Normal S1-S2. No murmurs. Lungs are clear. Abdomen: Morbidly obese. Skin: With scabs and a few irritations, especially on the abdomen, mostly at eczematous. The rash that she had prior has markedly improved. LABORATORY DATA: White count is 8.8, hemoglobin 12.3, hematocrit 35.9, platelets 297, 51% neutrophils, 31% lymphocytes. Sodium 134, potassium 4.8, chloride 98, bicarb 27, BUN 20, creatinine 1, glucose 254. Vancomycin trough was 18. Urine culture was positive for Enterobacter cloacae and the right foot culture was positive for group B strep and Corynebacterium. IMPRESSION: 1. Chronic osteomyelitis of the right foot, status post transmetatarsal amputation with persistently opening area, but it is much improved. There is no purulent discharge. The area is open about 3 x 2 cm. The ulcer on the lateral aspect of the foot measures 3 x 2 cm, clean and superficial. Has received a total of 6 weeks of IV antibiotics by the end of this week. 2. Diabetic foot ulcer of the right foot, improving. 3. Urinary tract infection (UTI), on Bactrim. PLAN The patient could be discharged home by the end of the week once he finishes IV vancomycin. Of note, her creatinine has increased with a combination of Bactrim and vancomycin and if urinary symptoms have resolved should be able to discontinue Bactrim. HONGD
[2017-02-11] MEDS: ATORVASTATIN 10 MG TAB PO SCH (21:00)
[2017-02-12 06:00] VITALS: BP 142/65
[2017-02-12] MEDS: HEPARIN SOD (PORCINE) 5000 UNITS/ML VIAL SC SCH ×3 (06:39→21:40)
[2017-02-12] MEDS: VANCOMYCIN HCL 1,000 MG, VIAL MATE ADAPTER 1 EACH in D5W 250 ML IV SCH ×2 (06:39→18:04)
[2017-02-12] MEDS: SODIUM CHLORIDE 0.9% INJ 10 ML SYR IV SCH ×2 (06:39→18:05)
[2017-02-12] MEDS: LISINOPRIL 5 MG TAB PO SCH (09:09)
[2017-02-12] MEDS: metFORMIN (GLUCOPHAGE) 500 MG TAB PO SCH ×2 (09:09→18:05)
[2017-02-12] MEDS: HumaLOG INSULIN (NovoLOG) PER UNIT SC SCH ×3 (09:09→18:04)
[2017-02-12] MEDS: DULoxetine 30 MG CAP (CYMBALTA) PO SCH (09:10)
[2017-02-12] MEDS: FUROSEMIDE 40 MG TAB PO SCH (09:10)
[2017-02-12] MEDS: hydrOXYzine 25 MG TAB PO SCH ×2 (09:10→21:40)
[2017-02-12] MEDS: DOCUSATE SODIUM 100 MG CAP PO SCH ×2 (09:10→21:40)
[2017-02-12] MEDS: OXcarbazepine 150 MG TAB PO SCH ×2 (09:10→21:40)
[2017-02-12] MEDS: PERCOCET 5MG/325MG TAB PO PRN ×2 (09:11→16:44)
[2017-02-12] MEDS: LEVEMIR (INSULIN DETEMIR) 1 UNITS/0.01ML SC SCH ×2 (09:11→21:41)
[2017-02-12] MEDS: TRIAMCINOLONE ACET 0.1% OINTMENT 80 GM EXT SCH ×2 (09:12→21:41)
[2017-02-12] MEDS: EUCERIN 120GM CREAM EXT SCH ×2 (09:12→21:41)
[2017-02-12] MEDS: ATORVASTATIN 10 MG TAB PO SCH (21:40)
[2017-02-12 22:00] VITALS: BP 141/77
[2017-02-13] MEDS: HEPARIN SOD (PORCINE) 5000 UNITS/ML VIAL SC SCH ×3 (05:37→22:00)
[2017-02-13] MEDS: SODIUM CHLORIDE 0.9% INJ 10 ML SYR IV SCH ×2 (05:37→17:04)
[2017-02-13] MEDS: VANCOMYCIN HCL 1,000 MG, VIAL MATE ADAPTER 1 EACH in D5W 250 ML IV SCH (05:37)
[2017-02-13 06:00] VITALS: BP 144/66
[2017-02-13] MEDS: HumaLOG INSULIN (NovoLOG) PER UNIT SC SCH ×3 (09:46→17:03)
[2017-02-13] MEDS: LEVEMIR (INSULIN DETEMIR) 1 UNITS/0.01ML SC SCH ×2 (09:46→20:36)
[2017-02-13] MEDS: LISINOPRIL 5 MG TAB PO SCH (09:47)
[2017-02-13] MEDS: metFORMIN (GLUCOPHAGE) 500 MG TAB PO SCH ×2 (09:47→17:03)
[2017-02-13] MEDS: DULoxetine 30 MG CAP (CYMBALTA) PO SCH (09:47)
[2017-02-13] MEDS: OXcarbazepine 150 MG TAB PO SCH ×2 (09:47→20:37)
[2017-02-13] MEDS: hydrOXYzine 25 MG TAB PO SCH ×2 (09:47→20:37)
[2017-02-13] MEDS: DOCUSATE SODIUM 100 MG CAP PO SCH ×2 (09:48→20:37)
[2017-02-13] MEDS: TRIAMCINOLONE ACET 0.1% OINTMENT 80 GM EXT SCH ×2 (09:48→21:00)
[2017-02-13] MEDS: EUCERIN 120GM CREAM EXT SCH ×2 (09:48→21:00)
[2017-02-13] MEDS: FUROSEMIDE 40 MG TAB PO SCH (09:48)
[2017-02-13] MEDS: PERCOCET 5MG/325MG TAB PO PRN ×2 (09:53→17:04)
[2017-02-13] MEDS: ATORVASTATIN 10 MG TAB PO SCH (20:37)
[2017-02-14] MEDS: SODIUM CHLORIDE 0.9% INJ 10 ML SYR IV SCH (05:37)
[2017-02-14] MEDS: HEPARIN SOD (PORCINE) 5000 UNITS/ML VIAL SC SCH ×2 (05:37→12:34)
[2017-02-14 06:00] VITALS: BP 147/69
[2017-02-14 08:35] VITALS: BP 147/69
[2017-02-14] MEDS: LISINOPRIL 5 MG TAB PO SCH (08:35)
[2017-02-14] MEDS: metFORMIN (GLUCOPHAGE) 500 MG TAB PO SCH (08:35)
[2017-02-14] MEDS: hydrOXYzine 25 MG TAB PO SCH (08:35)
[2017-02-14] MEDS: OXcarbazepine 150 MG TAB PO SCH (08:35)
[2017-02-14] MEDS: DULoxetine 30 MG CAP (CYMBALTA) PO SCH (08:35)
[2017-02-14] MEDS: LEVEMIR (INSULIN DETEMIR) 1 UNITS/0.01ML SC SCH (08:36)
[2017-02-14] MEDS: FUROSEMIDE 40 MG TAB PO SCH (08:36)
[2017-02-14] MEDS: DOCUSATE SODIUM 100 MG CAP PO SCH (08:36)
[2017-02-14] MEDS: HumaLOG INSULIN (NovoLOG) PER UNIT SC SCH ×2 (08:37→12:33)
[2017-02-14] MEDS: EUCERIN 120GM CREAM EXT SCH (08:37)
[2017-02-14] MEDS: TRIAMCINOLONE ACET 0.1% OINTMENT 80 GM EXT SCH (08:37)
[2017-02-14] MEDS ORDERED: LISI-542 PO (13:36)
[2017-02-14] MEDS ORDERED: GLUC500T PO (13:36)
[2017-02-14] MEDS ORDERED: FURO40TA2 PO (13:36)
[2017-02-14] MEDS ORDERED: DULO30CA PO (13:36)
[2017-02-14] MEDS ORDERED: PERCOCET PO (13:36)
[2017-02-14] MEDS ORDERED: HYDR-3363 PO (13:36)
--- NOTE | 2017-02-16 13:39 | DSES ---
DATE OF ADMISSION: 01/02/2017 DATE OF DISCHARGE: 02/14/2017 DIAGNOSES: 1. Osteomyelitis of the foot. 2. Status post forefoot amputation on the right. 3. Intentional drug overdose. 4. Diabetes mellitus. 5. Bipolar affective disorder. BRIEF HISTORY AND PHYSICAL: This is a 51-year-old woman who came to the emergency department because of polydrug overdose. She might have overdosed on metformin, lisinopril and some other medication. She became somnolent in the emergency room, subsequently required intubation and needed to be on a ventilator. She was also recently started on baclofen and Trileptal. Admission examination showed a temperature 96.7, pulse 97, respirations 14, blood pressure 162/85, oxygen saturation 95%. She was on a pressure support mechanical ventilation at a PEEP of 5, and 40% FiO2, and a pressure 15 at that time. She is a morbidly obese middle-aged white female intubated and sedated. Lungs were clear. Heart had a regular rhythm without any murmur, click or gallop. Abdomen was soft and nontender without any ecchymoses. She had bilateral partial foot amputations. She had good granulation tissue on a chronic right foot ulcer. LABORATORY DATA: Initial CBC showed a hemoglobin 12.7, WBC 8700. Subsequently most of her hemoglobins ran in the mid 11s to 12s. White counts were highest at 12,000 on 01/10/2017. Sed rate on 01/04/2017 was 70 and subsequently between 65 and 71. Initial blood gas showed a pH of 7.29, pCO2 44, pO2 149, bicarb of 21.2. Glucose was 445, sodium 139, potassium 4.4, BUN 23, creatinine 0.9, alkaline phosphatase 125. Lactic acid was 2.3, subsequently 2.0. C-reactive proteins peaked at 4.28. Subsequently had another peak at 4.83. Hemoglobin A1c that was done on 01/27/2017 showed 10.4. On 01/30/2017, she had a lactic acid of 3.3 with repeat of 2.6. On 02/10/2017, her BUN was 20, creatinine 1.08, sodium 134, potassium 4.8. Urinalysis on 02/06/2017 showed too numerous to count white cells, 3+ glucose, 1+ protein. Urine culture showed Enterobacter cloacae. Wound culture showed Strep Group B Corynebacterium. Admission chest x-ray showed endotracheal tube 2.4 cm above the madhav, could not exclude perihilar or retrocardiac atelectasis. Foot MRI was similar to one done 5 months earlier with cellulitis of the forefoot. CT angiogram done on 01/26/2017 of the abdomen showed minor atherosclerotic calcifications, hepatomegaly with fatty liver, bilateral mid foot amputations. COURSE IN FACILITY: The patient was admitted to the facility for treatment of her medication overdose. She required ventilation in intensive care. She was seen by Dr. Jasso from critical care. She was also seen by Dr. Thomas of infectious disease and was seen by Dr. Rosas from psychiatry. Initial recommendation was for transfer to the inpatient psychiatric unit for further care, although subsequent evaluation and need for other medical services, including IV antibiotics, led to a decision to have her remain on the medical floor where she was followed for her psychiatric issues. She was on vancomycin and cefalozin. Recommendations were for 5 weeks of IV antibiotics, which she completed here. Her metformin dose was reduced. While she was in the hospital, she received Levemir rather than the Toujeo that she was getting at home. It appears that she was treated for scabies with Permethrin. She had sliding-scale insulin coverage. She was on subcutaneous heparin for deep vein thrombosis (DVT ) prophylaxis. She was given oxycodone with acetaminophen for pain. She continued her vancomycin through 02/06/2017. She did have a wound Vac that was subsequently discontinued. Her Cymbalta was increased to 60 mg daily. She was not restarted on the baclofen. Plans were made for her to return home with home health services. When seen prior to her discharge, she was alert, oriented, cooperative, in good spirits. Temperature was 97.8, blood pressure 147/69, pulse 92, respirations 16 , oxygen saturation 95% on room air. Her blood sugar had been 188 that morning. She was in no distress. Lungs were clear. Heart had a regular rhythm without any murmur, click or gallop. Abdomen was soft and nontender. The right foot had an orthopedic boot on and was wrapped. The patient's discharge recommendations were as follows: She would return to her home with home health services. She was to consume a no concentrated sweets diet. She would be on Cymbalta 60 mg a day, which was increased from 30. She was on atorvastatin 10 mg daily and not to take baclofen. She was on lisinopril 5 mg daily which was an increase from a prior dose. Trileptal was restarted at 150 mg twice a day and would be continued at home. She would be on sliding scale Humalog. She would go back to her previous Toujeo dosage of 63 units. She could take oxycodone/acetaminophen 5/325 one to two every 6 hours as needed for pain. The metformin dose was reduced to 500 mg twice a day. She was supposed to be on Lasix 40 mg once a day and hydroxyzine 25 mg twice a day. She will be following up next week with mental health as an outpatient. She should have an appointment within 2 weeks with [facility] and should have a followup if needed with Dr. Alicea. JACOB
== END 2017-02-14 15:17 | disposition home health service (06) | DRG 952 ==
LOC: M ED 06:48 → EDBD 06:48 → M ED INP 10:55 → M ICU 12:03 → M MSPAV 01-03 14:33
PROVIDERS: ADMIT Internal Medicine Pulmonary Disease; ATTEND Family Medicine
PROC: 0BH17EZ Insertion of Endotracheal Airway into Trachea, Via Natural or Artificial Opening (ICD-10-PCS; 2017-01-02)
PROC: 5A1935Z Respiratory Ventilation, Less than 24 Consecutive Hours (ICD-10-PCS; 2017-01-02)
PROC: 0JBQ0ZZ Excision of Right Foot Subcutaneous Tissue and Fascia, Open Approach (ICD-10-PCS; 2017-01-06)
PROC: 02HV33Z Insertion of Infusion Device into Superior Vena Cava, Percutaneous Approach (ICD-10-PCS; 2017-01-06)
PROC: 0QBN0ZZ Excision of Right Metatarsal, Open Approach (ICD-10-PCS; principal; 2017-01-06 17:00)
PROC: 0HDMXZZ Extraction of Right Foot Skin, External Approach (ICD-10-PCS; 2017-01-14)
DX: T42.8X2A Poisoning by antiparkinsonism drugs and other central muscle-tone depressants, intentional self-harm, initial encounter (principal); J96.90 Respiratory failure, unspecified, unspecified whether with hypoxia or hypercapnia; E11.621 Type 2 diabetes mellitus with foot ulcer; E11.65 Type 2 diabetes mellitus with hyperglycemia; M86.671 Other chronic osteomyelitis, right ankle and foot; Z68.43 Body mass index [BMI] 50.0-59.9, adult; E66.01 Morbid (severe) obesity due to excess calories; L97.519 Non-pressure chronic ulcer of other part of right foot with unspecified severity; N39.0 Urinary tract infection, site not specified; I10 Essential (primary) hypertension; F31.9 Bipolar disorder, unspecified; T42.6X2A Poisoning by other antiepileptic and sedative-hypnotic drugs, intentional self-harm, initial encounter; E78.5 Hyperlipidemia, unspecified; Y92.009 Unspecified place in unspecified non-institutional (private) residence as the place of occurrence of the external cause; B86 Scabies; B95.1 Streptococcus, group B, as the cause of diseases classified elsewhere; G89.29 Other chronic pain; Z88.8 Allergy status to other drugs, medicaments and biological substances; Z79.4 Long term (current) use of insulin; Z79.899 Other long term (current) drug therapy; Y99.8 Other external cause status

== ENCOUNTER → 2017-03-03 | Outpatient (REF) | payer OTHER ==
[~2017-03-03] MED LIST changes: +BACL10TA2 PO; +DULO30CA PO; +FURO40TA2 PO; +GABA800T PO; +GLUC500T PO; +HYDR-3363 PO; +LISI-542 PO; +LISI2.5T3 PO; +OXCA150T PO; +TOUJ1.2I SC
[2017-03-03 14:00] LABS: ANION GAP 10 MEQ/L (8-16); BLOOD UREA NITROGEN 21 MG/DL (7-18); CALCIUM LEVEL 9.6 MG/DL (8.5-10.1); CARBON DIOXIDE LEVEL 24 MEQ/L (21-32); CHLORIDE LEVEL 95 MEQ/L (98-107); CREATININE FOR GFR 0.87 MG/DL (0.55-1.02); GLOMERULAR FILTRATION RATE > 60.0 (>51); SODIUM LEVEL 129 MEQ/L (136-145)
[2017-03-03 14:01] LABS: BASO # 0.1 K/mm3 (0.0-0.2); BASO % 0.8 % (0.0-1.0); EOS # 0.2 K/mm3 (0.0-0.50); EOS % 2.5 % (0.0-3.0); LARGE UNSTAINED CELL # 0.2 K/mm3 (0.0-0.4); LARGE UNSTAINED CELL % 2.2 % (0.0-4.0); LYMPH # 3.7 K/mm3 (1.5-4.5); LYMPH % 39.3 % (24.0-44.0); MEAN CORPUSCULAR HEMOGLOBIN 29.4 pg (27.0-33.0); MEAN CORPUSCULAR HGB CONC 34.7 g/dl (32.0-36.5); MEAN CORPUSCULAR VOLUME 84.7 fl (80.0-96.0); MONO # 0.5 K/mm3 (0.0-0.8); MONO % 5.1 % (0.0-5.0); NEUTROPHILS # 4.7 K/mm3 (1.8-7.7); NEUTROPHILS % 50.2 % (36.0-66.0); PLATELET COUNT, AUTOMATED 363 k/mm3 (150-450); RED CELL DISTRIBUTION WIDTH 14.2 % (11.5-14.5); WHITE BLOOD COUNT 9.4 K/mm3 (4.0-10.0)
[2017-03-03 14:06] LABS: GLUCOSE, FASTING 436 MG/DL (70-105)
[2017-03-03 15:08] LABS: ERYTHROCYTE SEDIMENTATION RATE 63 mm/hr (0-30)
== END ==
LOC: M SFHCPLAZ 10:53
PROVIDERS: ATTEND Physician Assistant Medical
DX: I10 Essential (primary) hypertension (principal)

== ENCOUNTER 2017-09-24 12:27 | Emergency (ER) | payer OTHER | END 2017-09-24 16:27 | disposition home or self-care (01) | LOC: M ED 12:27 | DX: Z46.89 Encounter for fitting and adjustment of other specified devices (principal); E11.622 Type 2 diabetes mellitus with other skin ulcer; E11.40 Type 2 diabetes mellitus with diabetic neuropathy, unspecified; I10 Essential (primary) hypertension; E78.5 Hyperlipidemia, unspecified; Z89.429 Acquired absence of other toe(s), unspecified side; Z87.891 Personal history of nicotine dependence; Z79.899 Other long term (current) drug therapy; Z79.4 Long term (current) use of insulin; Z88.1 Allergy status to other antibiotic agents; Z88.8 Allergy status to other drugs, medicaments and biological substances | CPT/HCPCS: 99283 ==

== ENCOUNTER → 2017-11-09 | Outpatient (REF) | payer OTHER ==
[2017-11-09 13:00] LABS: APPEARANCE, URINE CLOUDY (CLEAR); BACTERIA, URINE AUTO 3+ (NEGATIVE); BILIRUBIN, URINE AUTO NEGATIVE (NEGATIVE); BLOOD, URINE BLOOD 1+ (NEGATIVE); COLOR, URINE YELLOW (YELLOW); GLUCOSE, URINE (UA) AUTO 3+ mg/dL (NEGATIVE); KETONE, URINE AUTO NEGATIVE (NEGATIVE); LEUKOCYTE ESTERASE, URINE AUTO 2+ (NEGATIVE); MUCUS, URINE SMALL (NEGATIVE); NITRITE, URINE AUTO POSITIVE (NEGATIVE); PROTEIN, URINE AUTO 3+ mg/dL (NEGATIVE); RBC, URINE AUTO 5 /HPF (0-3); SPECIFIC GRAVITY URINE AUTO 1.023 (1.002-1.035); SQUAMOUS EPITHELIAL CELL UR AU 1 /HPF (0-6); UROBILINOGEN, URINE AUTO 0.2 mg/dL (0.0-2.0); WBC, URINE AUTO TNTC /HPF (0-3)
== END ==
LOC: M LAB REF 12:08
DX: N39.0 Urinary tract infection, site not specified (principal)
CPT/HCPCS: 81001

== ENCOUNTER → 2017-12-16 | Outpatient (CLI) | payer OTHER ==
[2017-12-16 11:13] LABS: HEMATOCRIT 37.3 % (36.0-47.0); HEMOGLOBIN 12.4 g/dl (12.0-15.5); MEAN CORPUSCULAR HEMOGLOBIN 28.2 pg (27.0-33.0); MEAN CORPUSCULAR HGB CONC 33.2 g/dl (32.0-36.5); PLATELET COUNT, AUTOMATED 322 10^3/uL (150-450); RED BLOOD COUNT 4.39 10^6/uL (4.00-5.40); RED CELL DISTRIBUTION WIDTH 13.8 % (11.5-14.5); WHITE BLOOD COUNT 8.7 10^3/uL (4.0-10.0)
[2017-12-16 11:43] LABS: ERYTHROCYTE SEDIMENTATION RATE 54 mm/hr (0-30)
[2017-12-16 11:45] LABS: ALBUMIN 2.8 GM/DL (3.2-5.2); ALBUMIN/GLOBULIN RATIO 0.76 (1.00-1.93); ALKALINE PHOSPHATASE 89 U/L (45-117); ALT/SGPT 28 U/L (12-78); ANION GAP 9 MEQ/L (8-16); AST/SGOT 15 U/L (7-37); BILIRUBIN,TOTAL 0.3 MG/DL (0.2-1.0); BLOOD UREA NITROGEN 14 MG/DL (7-18); C REACTIVE PROTEIN QUANTITATIV 2.53 MG/DL (0.00-0.30); CALCIUM LEVEL 8.4 MG/DL (8.5-10.1); CARBON DIOXIDE LEVEL 27 MEQ/L (21-32); CHLORIDE LEVEL 98 MEQ/L (98-107); CREATININE FOR GFR 0.64 MG/DL (0.55-1.30); GLOMERULAR FILTRATION RATE > 60.0 (>51); GLUCOSE, FASTING 348 MG/DL (70-100); POTASSIUM SERUM 4.5 MEQ/L (3.5-5.1); SODIUM LEVEL 134 MEQ/L (136-145); TOTAL PROTEIN 6.5 GM/DL (6.4-8.2)
== END ==
LOC: M LAB 10:45
DX: M86.471 Chronic osteomyelitis with draining sinus, right ankle and foot (principal); L97.512 Non-pressure chronic ulcer of other part of right foot with fat layer exposed; E08.649 Diabetes mellitus due to underlying condition with hypoglycemia without coma
CPT/HCPCS: 80053

== ENCOUNTER 2018-01-22 16:00 | Outpatient (CLI) | payer OTHER ==
[2018-01-22] MEDS: DALBAVANCIN 1,500 MG in D5W 500 ML IV (16:43)
[2018-01-22 17:12] LABS: HEMATOCRIT 40.7 % (36.0-47.0); HEMOGLOBIN 13.3 g/dl (12.0-15.5); MEAN CORPUSCULAR HEMOGLOBIN 29.4 pg (27.0-33.0); MEAN CORPUSCULAR HGB CONC 32.7 g/dl (32.0-36.5); MEAN CORPUSCULAR VOLUME 89.8 fl (80.0-96.0); PLATELET COUNT, AUTOMATED 387 10^3/uL (150-450); RED BLOOD COUNT 4.53 10^6/uL (4.00-5.40)
[2018-01-22 17:17] LABS: ADD MANUAL DIFFER YES; DIFF SLIDE NUMBER 106; POSITIVE DIFF POS FLAG; WHITE BLOOD COUNT 12.4 10^3/uL (4.0-10.0)
[2018-01-22 17:35] LABS: ANION GAP 11 MEQ/L (8-16); BLOOD UREA NITROGEN 19 MG/DL (7-18); C REACTIVE PROTEIN QUANTITATIV < 0.30 MG/DL (0.00-0.30); CALCIUM LEVEL 9.1 MG/DL (8.5-10.1); CARBON DIOXIDE LEVEL 19 MEQ/L (21-32); CHLORIDE LEVEL 106 MEQ/L (98-107); CREATININE FOR GFR 0.92 MG/DL (0.55-1.30); GLOMERULAR FILTRATION RATE > 60.0 (>51); GLUCOSE, FASTING 173 MG/DL (70-100); POTASSIUM SERUM 5.1 MEQ/L (3.5-5.1); SODIUM LEVEL 136 MEQ/L (136-145)
[2018-01-22 18:03] LABS: ANISOCYTOSIS 1+; ATYPICAL LYMPH 4 % (0-5); EOSINOPHILS 5 % (0-5); LYMPHOCYTES 43 % (16-52); MONOCYTES 6 % (0-8); NEUTROPHILS 42 % (35-75); PLATELET ESTIMATE NORMAL (NORMAL)
[2018-01-22 19:42] LABS: ERYTHROCYTE SEDIMENTATION RATE 1 mm/hr (0-30)
== END 2018-01-22 18:15 | disposition home or self-care (01) ==
LOC: M INFU 16:00
DX: M86.671 Other chronic osteomyelitis, right ankle and foot (principal); A49.02 Methicillin resistant Staphylococcus aureus infection, unspecified site; Z89.422 Acquired absence of other left toe(s); Z89.411 Acquired absence of right great toe; Z89.412 Acquired absence of left great toe; Z88.8 Allergy status to other drugs, medicaments and biological substances; Z88.1 Allergy status to other antibiotic agents; Z79.4 Long term (current) use of insulin; Z79.899 Other long term (current) drug therapy
CPT/HCPCS: J0875

== ENCOUNTER 2018-02-01 13:21 | Outpatient (CLI) | payer OTHER ==
[2018-02-01] MEDS: DALBAVANCIN 1,500 MG in D5W 250 ML IV (14:03)
== END 2018-02-01 15:25 | disposition home or self-care (01) ==
LOC: M INFU 13:21
DX: M86.671 Other chronic osteomyelitis, right ankle and foot (principal); A49.02 Methicillin resistant Staphylococcus aureus infection, unspecified site; Z89.422 Acquired absence of other left toe(s); Z89.411 Acquired absence of right great toe; Z89.412 Acquired absence of left great toe; Z88.8 Allergy status to other drugs, medicaments and biological substances; Z88.1 Allergy status to other antibiotic agents; Z79.899 Other long term (current) drug therapy
CPT/HCPCS: J0875

== ENCOUNTER → 2018-02-05 | Outpatient (CLI) | payer OTHER | LOC: M RAD 12:02 | DX: Z89.431 Acquired absence of right foot (principal); M77.31 Calcaneal spur, right foot; M85.871 Other specified disorders of bone density and structure, right ankle and foot | CPT/HCPCS: 73630 ==

== ENCOUNTER → 2018-02-09 | Outpatient (REF) | payer OTHER ==
[2018-02-09 19:54] LABS: APPEARANCE, URINE CLOUDY (CLEAR); BACTERIA, URINE AUTO 2+ (NEGATIVE); BILIRUBIN, URINE AUTO NEGATIVE (NEGATIVE); BLOOD, URINE BLOOD 1+ (NEGATIVE); COLOR, URINE YELLOW (YELLOW); GLUCOSE, URINE (UA) AUTO 3+ mg/dL (NEGATIVE); KETONE, URINE AUTO NEGATIVE (NEGATIVE); LEUKOCYTE ESTERASE, URINE AUTO 3+ (NEGATIVE); MUCUS, URINE SMALL (NEGATIVE); NITRITE, URINE AUTO POSITIVE (NEGATIVE); PROTEIN, URINE AUTO 2+ mg/dL (NEGATIVE); RBC, URINE AUTO 18 /HPF (0-3); SPECIFIC GRAVITY URINE AUTO 1.017 (1.002-1.035); SQUAMOUS EPITHELIAL CELL UR AU 8 /HPF (0-6); UROBILINOGEN, URINE AUTO 0.2 mg/dL (0.0-2.0); WBC, URINE AUTO TNTC /HPF (0-3)
== END ==
LOC: M LAB REF 16:56
DX: N39.0 Urinary tract infection, site not specified (principal)

== ENCOUNTER → 2018-02-15 | Outpatient (REF) | payer OTHER ==
[2018-02-15 12:53] LABS: ANION GAP 10 MEQ/L (8-16); BLOOD UREA NITROGEN 17 MG/DL (7-18); C REACTIVE PROTEIN QUANTITATIV 0.64 MG/DL (0.00-0.30); CALCIUM LEVEL 9.1 MG/DL (8.5-10.1); CARBON DIOXIDE LEVEL 23 MEQ/L (21-32); CHLORIDE LEVEL 106 MEQ/L (98-107); GLOMERULAR FILTRATION RATE > 60.0 (>51); GLUCOSE, FASTING 198 MG/DL (70-100); SODIUM LEVEL 139 MEQ/L (136-145)
[2018-02-15 12:57] LABS: POTASSIUM SERUM 5.4 MEQ/L (3.5-5.1)
[2018-02-15 13:04] LABS: BASO # 0.1 10^3/uL (0.0-0.2); BASO % 1.2 % (0.0-1.0); EOS # 0.3 10^3/uL (0.0-0.50); EOS % 3.3 % (0.0-3.0); HEMATOCRIT 38.9 % (36.0-47.0); HEMOGLOBIN 12.7 g/dl (12.0-15.5); IMMATURE GRANULOCYTE % 2.1 % (0-3.0); LYMPH # 3.9 10^3/uL (1.5-4.5); LYMPH % 41.1 % (24.0-44.0); MEAN CORPUSCULAR HEMOGLOBIN 29.8 pg (27.0-33.0); MEAN CORPUSCULAR HGB CONC 32.6 g/dl (32.0-36.5); MEAN CORPUSCULAR VOLUME 91.3 fl (80.0-96.0); MONO # 0.7 10^3/uL (0.0-0.8); MONO % 7.2 % (0.0-5.0); NEUTROPHILS # 4.3 10^3/uL (1.8-7.7); NEUTROPHILS % 45.1 % (36.0-66.0); PLATELET COUNT, AUTOMATED 440 10^3/uL (150-450); RED BLOOD COUNT 4.26 10^6/uL (4.00-5.40); RED CELL DISTRIBUTION WIDTH 14.4 % (11.5-14.5); WHITE BLOOD COUNT 9.4 10^3/uL (4.0-10.0)
[2018-02-15 14:12] LABS: ERYTHROCYTE SEDIMENTATION RATE 35 mm/hr (0-30)
== END ==
LOC: M SFHCPLAZ 10:20
DX: M86.671 Other chronic osteomyelitis, right ankle and foot (principal)
CPT/HCPCS: 80048

== ENCOUNTER → 2018-02-23 | Outpatient (CLI) | payer OTHER ==
[~2018-02-23] MED LIST changes: -/CELE20CA PO; -/FENO48TA OR; -/LINE60TA OR; -ACET-654 PO; -ACET65TA OR; -ALTE2VL IV; -AQUAOI TOP; -ASCO25TA PO; -ASCO500T PO; -ASPI1TAB PO; -ASPI81CH PO; -ASPI81TA7 PO; -ATIV1TAB7 PO; -ATOR1TAB19 PO; -ATOR40TA PO; -ATOR80TA59 PO; -AVELOX IV; -AZIT500T2 PO; -BACL10TA2 PO; -BACT2OIN10 TOP; -BACT800T5 PO; -BENA25TA4 PO; -BISA5TAB7 PO; -CEFA1VL IV; -CEFD1CAP8 PO; -CEFD300CAP PO; -CLIN300C PO; -COLA100C5 PO; -DAPTOMYCIN IV; -DULO30CA PO; -EUCECRE2 TOP; -EUCECRE3 TOP; -FENO160T10 PO; -FERR1TAB8 PO; -FLUC10TA PO; -FURO20TA2 PO; -FURO40TA2 PO; -GABA-282 PO; -GABA-283 PO; -GABA800T PO; -GEMF600T PO; -GLUC1000 OR; -GLUC1000 PO; -GLUC1VL SC; -GLUC4CHW PO; -GLUC500T PO; -HEPA100PFS INJ; -HEPA100PFS IV; -HEPA100SYR IV; -HEPA500020 SC; -HEPARIN IVF; -HYDR-3363 PO; -INSUDET SC; -INSUH10VL SC; -INSUHUMDS SC; -INSULADS SC; -INSULANT SC; -INSULIN ASPART; -INSULIN ASPART SQ; -JANUVIA OR; -LEVA1TAB2 PO; -LEVO750T PO; -LIPI80TA PO; -LISI-538 PO; -LISI-542 PO; -LISI2.5T3 PO; -LISI20TA5 OR; -MAG400TA PO; -MAGN400T5 PO; -MAGN500T2 OR; -MAPA325T2 PO; -METF10004 PO; -MOM30SS PO; -MOTR200T44 PO; -MULTCAP PO; -NACL IVF; -NEUR100C OR; -NEUR100C PO; -NICO14DI3 TD; -NYST10PW TOP; -ONDA4TAB5 PO; -OXCA150T PO; -OXCA15HATB OR; -OXYC15TA76 PO; -OXYC1CON PO; -OXYC1SOL3 PO; -OXYCO5TA PO; -PEG1POW PO; -PERC5TAB PO; -PERC5TAB12 PO; -PERC5TAB8 OR; -PERCOCET PO; -PRIN10TA PO; +PROHANCE 279.3MG/ML 15ML VIAL (A9576) As Ordered; +PROHANCE 279.3MG/ML 5ML VIAL (A9576) As Ordered; -REGL5TAB2 PO; -ROBA750T4 PO; -ROXI1TAB2 PO; -SALI0.9I2 IV; -SENO8.6T9 PO; -SIMV80TA OR; -SLF IV; -TEFL600I IV; -TOUJ1.2I SC; -TRIA1OI EXT; -TRIA1OI TOP; -TRIL150T PO; -TRIL1TAB PO; -TRIL300S PO; -TYLE325T5 PO; -TYLE650T30 PO; -VANC10005 INJ; -VANC1INJ IV; -VARE1TA PO; -VITA500T PO; -VITMTA PO; -ZOLO100T PO; -ZOLO25TA PO; -ZOLO50TA OR; -[UNRECOGNIZED DRUG - CODE] EXT; -[UNRECOGNIZED DRUG - OTHER]; -[UNRECOGNIZED DRUG - OTHER]; -[UNRECOGNIZED DRUG - OTHER] IVFLUSH; -lantus SQ; -tricor PO
== END ==
LOC: M RAD 16:13
DX: M86.671 Other chronic osteomyelitis, right ankle and foot (principal); M77.31 Calcaneal spur, right foot
CPT/HCPCS: A9576

== ENCOUNTER 2018-03-07 17:57 | Inpatient (IN) | payer OTHER ==
[2018-03-07 19:51] LABS: HEMATOCRIT 38.7 % (36.0-47.0); HEMOGLOBIN 12.5 g/dl (12.0-15.5); MEAN CORPUSCULAR HEMOGLOBIN 29.3 pg (27.0-33.0); MEAN CORPUSCULAR HGB CONC 32.3 g/dl (32.0-36.5); MEAN CORPUSCULAR VOLUME 90.8 fl (80.0-96.0); PLATELET COUNT, AUTOMATED 410 10^3/uL (150-450); RED BLOOD COUNT 4.26 10^6/uL (4.00-5.40); RED CELL DISTRIBUTION WIDTH 14.5 % (11.5-14.5); WHITE BLOOD COUNT 12.9 10^3/uL (4.0-10.0)
[2018-03-07 20:10] LABS: ADD MANUAL DIFFER YES; DIFF SLIDE NUMBER 148; POSITIVE DIFF POS FLAG
[2018-03-07 20:13] LABS: ALBUMIN 3.4 GM/DL (3.2-5.2); ALBUMIN/GLOBULIN RATIO 0.87 (1.00-1.93); ALKALINE PHOSPHATASE 79 U/L (45-117); ALT/SGPT 31 U/L (12-78); ANION GAP 12 MEQ/L (8-16); AST/SGOT 22 U/L (7-37); BILIRUBIN,DIRECT < 0.1 MG/DL (0.0-0.2); BILIRUBIN,TOTAL 0.2 MG/DL (0.2-1.0); BLOOD UREA NITROGEN 24 MG/DL (7-18); C REACTIVE PROTEIN QUANTITATIV 0.89 MG/DL (0.00-0.30); CALCIUM LEVEL 9.5 MG/DL (8.5-10.1); CARBON DIOXIDE LEVEL 21 MEQ/L (21-32); CHLORIDE LEVEL 106 MEQ/L (98-107); CREATININE FOR GFR 0.81 MG/DL (0.55-1.30); GLOMERULAR FILTRATION RATE > 60.0 (>51); GLUCOSE, FASTING 75 MG/DL (70-100); POTASSIUM SERUM 4.2 MEQ/L (3.5-5.1); SODIUM LEVEL 139 MEQ/L (136-145); TOTAL PROTEIN 7.3 GM/DL (6.4-8.2)
[2018-03-07 20:14] LABS: ATYPICAL LYMPH 6 % (0-5); EOSINOPHILS 1 % (0-5); LYMPHOCYTES 33 % (16-52); MONOCYTES 12 % (0-8); NEUTROPHILS 48 % (35-75); PLATELET ESTIMATE NORMAL (NORMAL)
[2018-03-07] MEDS ORDERED: GLUCOSE 4 GM CHEW TABLET PO (20:15)
[2018-03-07] MEDS ORDERED: DEXTROSE 50% 50 ML SYRINGE IV (20:15)
[2018-03-07] MEDS ORDERED: GLUCAGON FOR INJ 1 MG VIAL (J1610) SC (20:15)
[2018-03-07 20:21] LABS: ERYTHROCYTE SEDIMENTATION RATE 49 mm/hr (0-30)
[2018-03-07] MEDS ORDERED: ACETAMINOPHEN TAB 650MG DOSE (2X325MG) PO (20:30)
[2018-03-07] MEDS: HumaLOG INSULIN (NovoLOG) PER UNIT SC (21:00)
[2018-03-07] MEDS: LEVEMIR (INSULIN DETEMIR) 1 UNITS/0.01ML SC (21:22)
[2018-03-07] MEDS: VANCOMYCIN HCL 1,000 MG, VIAL MATE ADAPTER 1 EACH in D5W 250 ML IV ×2 (21:23→22:28)
[2018-03-07] MEDS: DULoxetine 30 MG CAP (CYMBALTA) PO (21:23)
[2018-03-07] MEDS: SENOKOT S TAB PO (21:23)
[2018-03-07] MEDS: ATORVASTATIN 20 MG TAB PO (21:23)
[2018-03-07] MEDS: HEPARIN SOD (PORCINE) 5000 UNITS/ML VIAL SC (21:23)
[2018-03-07 21:27] LABS: BEDSIDE GLUCOSE 64 MG/DL (70-105)
[2018-03-07 21:29] LABS: BEDSIDE GLUCOSE 71 MG/DL (70-105)
[2018-03-07] MEDS: ONDANSETRON 4MG/2ML VIAL (J2405) IV (22:28)
[2018-03-08] MEDS: HEPARIN SOD (PORCINE) 5000 UNITS/ML VIAL SC ×3 (02:33→21:36)
[2018-03-08 06:59] LABS: HEMATOCRIT 33.8 % (36.0-47.0); HEMOGLOBIN 11.3 g/dl (12.0-15.5); MEAN CORPUSCULAR HEMOGLOBIN 29.5 pg (27.0-33.0); MEAN CORPUSCULAR HGB CONC 33.4 g/dl (32.0-36.5); MEAN CORPUSCULAR VOLUME 88.3 fl (80.0-96.0); PLATELET COUNT, AUTOMATED 364 10^3/uL (150-450); RED BLOOD COUNT 3.83 10^6/uL (4.00-5.40); RED CELL DISTRIBUTION WIDTH 14.6 % (11.5-14.5); WHITE BLOOD COUNT 10.5 10^3/uL (4.0-10.0)
[2018-03-08 07:13] LABS: ANION GAP 10 MEQ/L (8-16); BLOOD UREA NITROGEN 26 MG/DL (7-18); C REACTIVE PROTEIN QUANTITATIV 0.77 MG/DL (0.00-0.30); CALCIUM LEVEL 8.5 MG/DL (8.5-10.1); CARBON DIOXIDE LEVEL 22 MEQ/L (21-32); CHLORIDE LEVEL 108 MEQ/L (98-107); CREATININE FOR GFR 0.85 MG/DL (0.55-1.30); GLOMERULAR FILTRATION RATE > 60.0 (>51); GLUCOSE, FASTING 109 MG/DL (70-100); MAGNESIUM LEVEL 1.6 MG/DL (1.8-2.4); POTASSIUM SERUM 4.4 MEQ/L (3.5-5.1); SODIUM LEVEL 140 MEQ/L (136-145)
[2018-03-08] MEDS: HumaLOG INSULIN (NovoLOG) PER UNIT SC ×4 (07:30→21:00)
[2018-03-08 07:31] LABS: ERYTHROCYTE SEDIMENTATION RATE 43 mm/hr (0-30)
[2018-03-08] MEDS ORDERED: INFLUENZA QUADRIVALENT PF VACCINE 0.5ML SYRINGE (90686) IM (09:00)
[2018-03-08] MEDS: MULTIVITAMINS/MINERALS THERAP 1 TAB PO (09:47)
[2018-03-08] MEDS: VANCOMYCIN HCL 1,000 MG, VIAL MATE ADAPTER 1 EACH in D5W 250 ML IV ×2 (09:48→21:39)
[2018-03-08] MEDS: SENOKOT S TAB PO ×2 (09:48→21:36)
[2018-03-08] MEDS: PERCOCET 5MG/325MG TAB PO ×2 (09:49→21:37)
[2018-03-08] MEDS: ONDANSETRON 4MG/2ML VIAL (J2405) IV (10:11)
[2018-03-08 10:21] LABS: BEDSIDE GLUCOSE 226 MG/DL (70-105)
[2018-03-08 12:00] LABS: BEDSIDE GLUCOSE 274 MG/DL (70-105)
[2018-03-08] MEDS: LEVEMIR (INSULIN DETEMIR) 1 UNITS/0.01ML SC ×2 (12:24→21:36)
[2018-03-08] MEDS: LOSARTAN 50 MG TAB PO (12:28)
[2018-03-08] MEDS: MAG SULF 1GM/100ML (MAG RUN) 1 GM in APPROPRIATE DILUENT 1 EA IV (13:15)
[2018-03-08 16:40] LABS: BEDSIDE GLUCOSE 103 MG/DL (70-105)
[2018-03-08] MEDS ORDERED: LIDOCAINE 1% MDV 20ML VIAL (17:59)
[2018-03-08] MEDS: BUPIVACAINE HCL 0.5% 10 ML VIAL As Ordered (18:13)
[2018-03-08] MEDS ORDERED: KETAMINE HCL 200 MG/20 ML VIAL As Ordered (18:13)
[2018-03-08] MEDS: LIDOCAINE 2% MDV 20 ML VIAL As Ordered (18:13)
[2018-03-08] MEDS ORDERED: LIDOCAINE 2% INJ 100 MG/5 ML SDV (FOR ANES.) As Ordered (18:14)
[2018-03-08] MEDS ORDERED: fentaNYL 100 MCG/2 ML INJECTION (J3010) As Ordered (18:14)
[2018-03-08] MEDS ORDERED: PROPOFOL 200 MG/20 ML VIAL As Ordered ×2 (18:14→18:29)
[2018-03-08] MEDS ORDERED: MIDAZOLAM INJ 2 MG/2 ML VIAL (J2250) As Ordered (18:14)
[2018-03-08] MEDS: VANCOMYCIN 1000 MG/20 ML VIAL (J3370) As Ordered (18:23)
[2018-03-08] MEDS ORDERED: fentaNYL 100 MCG/2 ML INJECTION (J3010) IV (19:15)
[2018-03-08] MEDS ORDERED: PERCOCET 5MG/325MG TAB PO (19:15)
[2018-03-08] MEDS ORDERED: ONDANSETRON 4MG/2ML VIAL (J2405) IV (19:15)
[2018-03-08] MEDS: LR 1,000 ML IV (19:15)
[2018-03-08 19:19] LABS: BEDSIDE GLUCOSE 91 MG/DL (70-105)
[2018-03-08 21:05] LABS: BEDSIDE GLUCOSE 133 MG/DL (70-105)
[2018-03-08] MEDS: DULoxetine 30 MG CAP (CYMBALTA) PO (21:36)
[2018-03-08] MEDS: ATORVASTATIN 20 MG TAB PO (21:36)
[2018-03-09] MEDS: HEPARIN SOD (PORCINE) 5000 UNITS/ML VIAL SC ×3 (06:26→21:55)
[2018-03-09] MEDS: PERCOCET 5MG/325MG TAB PO ×3 (06:31→18:02)
[2018-03-09 06:42] LABS: HEMATOCRIT 33.7 % (36.0-47.0); HEMOGLOBIN 11.2 g/dl (12.0-15.5); MEAN CORPUSCULAR HEMOGLOBIN 29.7 pg (27.0-33.0); MEAN CORPUSCULAR HGB CONC 33.2 g/dl (32.0-36.5); MEAN CORPUSCULAR VOLUME 89.4 fl (80.0-96.0); PLATELET COUNT, AUTOMATED 353 10^3/uL (150-450); RED BLOOD COUNT 3.77 10^6/uL (4.00-5.40); RED CELL DISTRIBUTION WIDTH 14.5 % (11.5-14.5); WHITE BLOOD COUNT 10.5 10^3/uL (4.0-10.0)
[2018-03-09 07:11] LABS: ANION GAP 8 MEQ/L (8-16); BLOOD UREA NITROGEN 19 MG/DL (7-18); C REACTIVE PROTEIN QUANTITATIV 2.43 MG/DL (0.00-0.30); CALCIUM LEVEL 8.7 MG/DL (8.5-10.1); CARBON DIOXIDE LEVEL 23 MEQ/L (21-32); CHLORIDE LEVEL 110 MEQ/L (98-107); GLOMERULAR FILTRATION RATE > 60.0 (>51); GLUCOSE, FASTING 93 MG/DL (70-100); POTASSIUM SERUM 4.2 MEQ/L (3.5-5.1); SODIUM LEVEL 141 MEQ/L (136-145)
[2018-03-09] MEDS: HumaLOG INSULIN (NovoLOG) PER UNIT SC ×4 (07:30→21:00)
[2018-03-09] MEDS: VANCOMYCIN HCL 1,000 MG, VIAL MATE ADAPTER 1 EACH in D5W 250 ML IV ×3 (08:02→21:55)
[2018-03-09] MEDS: LEVEMIR (INSULIN DETEMIR) 1 UNITS/0.01ML SC ×3 (08:20→22:03)
[2018-03-09 08:40] LABS: VANCOMYCIN LEVEL TROUGH 13.1 UG/ML (10.0-20.0)
[2018-03-09] MEDS: SENOKOT S TAB PO ×2 (09:01→21:55)
[2018-03-09] MEDS: FUROSEMIDE 40 MG TAB PO (09:01)
[2018-03-09] MEDS: LOSARTAN 50 MG TAB PO (09:02)
[2018-03-09] MEDS: MULTIVITAMINS/MINERALS THERAP 1 TAB PO (09:02)
[2018-03-09 11:55] LABS: BEDSIDE GLUCOSE 231 MG/DL (70-105)
[2018-03-09 17:14] LABS: BEDSIDE GLUCOSE 294 MG/DL (70-105)
[2018-03-09 21:24] LABS: BEDSIDE GLUCOSE 214 MG/DL (70-105)
[2018-03-09] MEDS: ATORVASTATIN 20 MG TAB PO (21:55)
[2018-03-09] MEDS: DULoxetine 30 MG CAP (CYMBALTA) PO (21:55)
[2018-03-10] MEDS: HEPARIN SOD (PORCINE) 5000 UNITS/ML VIAL SC ×3 (06:06→21:52)
[2018-03-10 07:18] LABS: HEMATOCRIT 31.3 % (36.0-47.0); HEMOGLOBIN 10.6 g/dl (12.0-15.5); MEAN CORPUSCULAR HEMOGLOBIN 30.3 pg (27.0-33.0); MEAN CORPUSCULAR HGB CONC 33.9 g/dl (32.0-36.5); MEAN CORPUSCULAR VOLUME 89.4 fl (80.0-96.0); PLATELET COUNT, AUTOMATED 336 10^3/uL (150-450); RED CELL DISTRIBUTION WIDTH 14.3 % (11.5-14.5); WHITE BLOOD COUNT 8.9 10^3/uL (4.0-10.0)
[2018-03-10] MEDS: HumaLOG INSULIN (NovoLOG) PER UNIT SC ×4 (07:30→21:00)
[2018-03-10 07:49] LABS: ERYTHROCYTE SEDIMENTATION RATE 67 mm/hr (0-30)
[2018-03-10 07:58] LABS: ANION GAP 8 MEQ/L (8-16); BLOOD UREA NITROGEN 14 MG/DL (7-18); CALCIUM LEVEL 8.6 MG/DL (8.5-10.1); CARBON DIOXIDE LEVEL 24 MEQ/L (21-32); CHLORIDE LEVEL 107 MEQ/L (98-107); CREATININE FOR GFR 0.64 MG/DL (0.55-1.30); GLOMERULAR FILTRATION RATE > 60.0 (>51); GLUCOSE, FASTING 150 MG/DL (70-100); POTASSIUM SERUM 4.4 MEQ/L (3.5-5.1); SODIUM LEVEL 139 MEQ/L (136-145)
[2018-03-10] MEDS: VANCOMYCIN HCL 1,000 MG, VIAL MATE ADAPTER 1 EACH in D5W 250 ML IV (08:00)
[2018-03-10] MEDS: SENOKOT S TAB PO ×2 (09:02→21:52)
[2018-03-10] MEDS: FUROSEMIDE 40 MG TAB PO (09:02)
[2018-03-10] MEDS: LOSARTAN 50 MG TAB PO (09:03)
[2018-03-10] MEDS: LEVEMIR (INSULIN DETEMIR) 1 UNITS/0.01ML SC ×2 (09:04→21:52)
[2018-03-10] MEDS: MULTIVITAMINS/MINERALS THERAP 1 TAB PO (09:05)
[2018-03-10] MEDS: INFLUENZA QUADRIVALENT PF VACCINE 0.5ML SYRINGE (90686) IM (09:07)
[2018-03-10 11:35] LABS: BEDSIDE GLUCOSE 250 MG/DL (70-105)
[2018-03-10] MEDS: PERCOCET 5MG/325MG TAB PO ×2 (17:17→21:53)
[2018-03-10] MEDS: LevoFLOXacin 750 MG TABLET PO (17:17)
[2018-03-10 17:44] LABS: BEDSIDE GLUCOSE 220 MG/DL (70-105)
[2018-03-10] MEDS: DULoxetine 30 MG CAP (CYMBALTA) PO (21:52)
[2018-03-10] MEDS: ATORVASTATIN 20 MG TAB PO (21:52)
[2018-03-11 03:25] LABS: BEDSIDE GLUCOSE 204 MG/DL (70-105)
[2018-03-11] MEDS: HEPARIN SOD (PORCINE) 5000 UNITS/ML VIAL SC ×3 (05:33→20:49)
[2018-03-11 07:22] LABS: HEMATOCRIT 31.5 % (36.0-47.0); HEMOGLOBIN 10.5 g/dl (12.0-15.5); MEAN CORPUSCULAR HEMOGLOBIN 29.9 pg (27.0-33.0); MEAN CORPUSCULAR HGB CONC 33.3 g/dl (32.0-36.5); MEAN CORPUSCULAR VOLUME 89.7 fl (80.0-96.0); PLATELET COUNT, AUTOMATED 359 10^3/uL (150-450); RED BLOOD COUNT 3.51 10^6/uL (4.00-5.40); RED CELL DISTRIBUTION WIDTH 14.2 % (11.5-14.5); WHITE BLOOD COUNT 8.8 10^3/uL (4.0-10.0)
[2018-03-11 07:57] LABS: ANION GAP 8 MEQ/L (8-16); BLOOD UREA NITROGEN 15 MG/DL (7-18); CALCIUM LEVEL 8.7 MG/DL (8.5-10.1); CARBON DIOXIDE LEVEL 24 MEQ/L (21-32); CHLORIDE LEVEL 108 MEQ/L (98-107); CREATININE FOR GFR 0.65 MG/DL (0.55-1.30); GLOMERULAR FILTRATION RATE > 60.0 (>51); GLUCOSE, FASTING 168 MG/DL (70-100); MAGNESIUM LEVEL 1.9 MG/DL (1.8-2.4); POTASSIUM SERUM 4.4 MEQ/L (3.5-5.1); SODIUM LEVEL 140 MEQ/L (136-145)
[2018-03-11] MEDS: SENOKOT S TAB PO ×2 (08:30→20:51)
[2018-03-11] MEDS: FUROSEMIDE 40 MG TAB PO (08:30)
[2018-03-11] MEDS: LOSARTAN 50 MG TAB PO (08:32)
[2018-03-11] MEDS: MULTIVITAMINS/MINERALS THERAP 1 TAB PO (08:33)
[2018-03-11] MEDS: HumaLOG INSULIN (NovoLOG) PER UNIT SC ×4 (08:34→20:50)
[2018-03-11] MEDS: LEVEMIR (INSULIN DETEMIR) 1 UNITS/0.01ML SC ×2 (08:34→20:50)
[2018-03-11 16:58] LABS: BEDSIDE GLUCOSE 329 MG/DL (70-105)
[2018-03-11] MEDS: LevoFLOXacin 750 MG TABLET PO (18:08)
[2018-03-11 20:28] LABS: BEDSIDE GLUCOSE 267 MG/DL (70-105)
[2018-03-11] MEDS: DULoxetine 30 MG CAP (CYMBALTA) PO (20:51)
[2018-03-11] MEDS: PERCOCET 5MG/325MG TAB PO (20:51)
[2018-03-11] MEDS: ATORVASTATIN 20 MG TAB PO (20:51)
[2018-03-12] MEDS: HEPARIN SOD (PORCINE) 5000 UNITS/ML VIAL SC (05:27)
[2018-03-12 07:17] LABS: HEMATOCRIT 32.5 % (36.0-47.0); HEMOGLOBIN 10.7 g/dl (12.0-15.5); MEAN CORPUSCULAR HEMOGLOBIN 30.1 pg (27.0-33.0); MEAN CORPUSCULAR HGB CONC 32.9 g/dl (32.0-36.5); MEAN CORPUSCULAR VOLUME 91.3 fl (80.0-96.0); PLATELET COUNT, AUTOMATED 407 10^3/uL (150-450); RED BLOOD COUNT 3.56 10^6/uL (4.00-5.40); RED CELL DISTRIBUTION WIDTH 13.8 % (11.5-14.5)
[2018-03-12 07:36] LABS: ANION GAP 7 MEQ/L (8-16); BLOOD UREA NITROGEN 16 MG/DL (7-18); C REACTIVE PROTEIN QUANTITATIV 6.66 MG/DL (0.00-0.30); CALCIUM LEVEL 9.2 MG/DL (8.5-10.1); CARBON DIOXIDE LEVEL 25 MEQ/L (21-32); CHLORIDE LEVEL 106 MEQ/L (98-107); CREATININE FOR GFR 0.71 MG/DL (0.55-1.30); GLOMERULAR FILTRATION RATE > 60.0 (>51); GLUCOSE, FASTING 209 MG/DL (70-100); MAGNESIUM LEVEL 1.7 MG/DL (1.8-2.4); POTASSIUM SERUM 4.6 MEQ/L (3.5-5.1); SODIUM LEVEL 138 MEQ/L (136-145)
[2018-03-12 07:48] LABS: ERYTHROCYTE SEDIMENTATION RATE 69 mm/hr (0-30)
[2018-03-12] MEDS: LEVEMIR (INSULIN DETEMIR) 1 UNITS/0.01ML SC (08:32)
[2018-03-12] MEDS: MULTIVITAMINS/MINERALS THERAP 1 TAB PO (08:32)
[2018-03-12] MEDS: FUROSEMIDE 40 MG TAB PO (08:32)
[2018-03-12] MEDS: HumaLOG INSULIN (NovoLOG) PER UNIT SC ×2 (08:32→12:27)
[2018-03-12] MEDS: SENOKOT S TAB PO (08:33)
[2018-03-12] MEDS: LOSARTAN 50 MG TAB PO (08:34)
[2018-03-12 11:33] LABS: BEDSIDE GLUCOSE 261 MG/DL (70-105)
[2018-03-12 12:01] LABS: BEDSIDE GLUCOSE 271 MG/DL (70-105)
== END 2018-03-12 13:10 | disposition home health service (06) | DRG 314 ==
LOC: M MS5PR 03-08 00:01 → M ED 17:57 → M ED INP 20:20
PROC: 0Q8L0ZZ Division of Right Tarsal, Open Approach (ICD-10-PCS; principal; 2018-03-08 08:00)
DX: T87.43 Infection of amputation stump, right lower extremity (principal); E11.621 Type 2 diabetes mellitus with foot ulcer; M86.171 Other acute osteomyelitis, right ankle and foot; E11.65 Type 2 diabetes mellitus with hyperglycemia; E11.69 Type 2 diabetes mellitus with other specified complication; E66.01 Morbid (severe) obesity due to excess calories; L97.519 Non-pressure chronic ulcer of other part of right foot with unspecified severity; Y83.5 Amputation of limb(s) as the cause of abnormal reaction of the patient, or of later complication, without mention of misadventure at the time of the procedure; I10 Essential (primary) hypertension; E78.5 Hyperlipidemia, unspecified; F31.9 Bipolar disorder, unspecified; G47.33 Obstructive sleep apnea (adult) (pediatric); B95.8 Unspecified staphylococcus as the cause of diseases classified elsewhere; B95.2 Enterococcus as the cause of diseases classified elsewhere; B96.20 Unspecified Escherichia coli [E. coli] as the cause of diseases classified elsewhere; Z79.4 Long term (current) use of insulin; Z79.899 Other long term (current) drug therapy; Z88.1 Allergy status to other antibiotic agents; Z88.8 Allergy status to other drugs, medicaments and biological substances

== ENCOUNTER → 2018-04-19 | Outpatient (REF) | payer OTHER ==
[2018-04-19 13:18] LABS: BASO # 0.1 10^3/uL (0.0-0.2); BASO % 0.5 % (0.0-1.0); EOS # 0.5 10^3/uL (0.0-0.50); EOS % 3.9 % (0.0-3.0); HEMATOCRIT 38.8 % (36.0-47.0); HEMOGLOBIN 12.9 g/dl (12.0-15.5); IMMATURE GRANULOCYTE % 0.7 % (0-3.0); LYMPH # 4.1 10^3/uL (1.5-4.5); LYMPH % 34.9 % (24.0-44.0); MEAN CORPUSCULAR HEMOGLOBIN 29.1 pg (27.0-33.0); MEAN CORPUSCULAR HGB CONC 33.2 g/dl (32.0-36.5); MEAN CORPUSCULAR VOLUME 87.4 fl (80.0-96.0); MONO # 0.8 10^3/uL (0.0-0.8); MONO % 7.2 % (0.0-5.0); NEUTROPHILS # 6.1 10^3/uL (1.8-7.7); NEUTROPHILS % 52.8 % (36.0-66.0); PLATELET COUNT, AUTOMATED 377 10^3/uL (150-450); RED BLOOD COUNT 4.44 10^6/uL (4.00-5.40); RED CELL DISTRIBUTION WIDTH 13.2 % (11.5-14.5); WHITE BLOOD COUNT 11.6 10^3/uL (4.0-10.0)
[2018-04-19 13:28] LABS: ANION GAP 13 MEQ/L (8-16); BLOOD UREA NITROGEN 20 MG/DL (7-18); C REACTIVE PROTEIN QUANTITATIV < 0.30 MG/DL (0.00-0.30); CALCIUM LEVEL 9.5 MG/DL (8.5-10.1); CARBON DIOXIDE LEVEL 24 MEQ/L (21-32); CHLORIDE LEVEL 104 MEQ/L (98-107); CREATININE FOR GFR 0.98 MG/DL (0.55-1.30); GLOMERULAR FILTRATION RATE > 60.0 (>51); GLUCOSE, FASTING 146 MG/DL (70-100); POTASSIUM SERUM 4.5 MEQ/L (3.5-5.1); SODIUM LEVEL 141 MEQ/L (136-145)
[2018-04-19 13:37] LABS: ESTIMATED AVERAGE GLUCOSE 174 MG/DL (60-110); HEMOGLOBIN A1c 7.7 %
[2018-04-19 13:47] LABS: ERYTHROCYTE SEDIMENTATION RATE 21 mm/hr (0-30)
== END ==
LOC: M SFHCPLAZ 10:29
DX: M86.671 Other chronic osteomyelitis, right ankle and foot (principal); E11.69 Type 2 diabetes mellitus with other specified complication

== ENCOUNTER → 2018-06-13 | Outpatient (REF) | payer OTHER ==
[~2018-06-13] MED LIST changes: +/CELE20CA PO; +/FENO48TA OR; +/LINE60TA OR; +ACET-654 PO; +ACET65TA OR; +ALTE2VL IV; +AQUAOI TOP; +ASCO25TA PO; +ASCO500T PO; +ASPI1TAB PO; +ASPI81CH PO; +ASPI81TA7 PO; +ATIV1TAB7 PO; +ATOR1TAB19 PO; +ATOR40TA PO; +ATOR40TA75 PO; +ATOR80TA59 PO; +AVELOX IV; +AZIT500T2 PO; +BACL10TA2 PO; +BACT2OIN10 TOP; +BACT800T5 PO; +BENA25TA4 PO; +BISA5TAB7 PO; +CEFA1VL IV; +CEFD1CAP8 PO; +CEFD300CAP PO; +CLIN150C14 PO; +CLIN300C PO; +COLA100C5 PO; +CYMB1CAP5 PO; +DAPTOMYCIN IV; +DULO30CA PO; +EUCECRE2 TOP; +EUCECRE3 TOP; +FENO160T10 PO; +FERR1TAB8 PO; +FLUC10TA PO; +FURO20TA2 PO; +FURO40TA2 PO; +GABA-843 PO; +GABA-845 PO; +GABA800T PO; +GEMF600T PO; +GEMF600T5 PO; +GLUC1000 OR; +GLUC1000 PO; +GLUC1INJ21 SC; +GLUC4CHW19 PO; +GLUC500T PO; +HEPA100PFS INJ; +HEPA100PFS IV; +HEPA100SYR IV; +HEPA500020 SC; +HEPARIN IVF; +HUMA100I5; +HYDR-3363 PO; +INSUDET SC; +INSUH10VL SC; +INSUHUMDS SC; +INSULADS SC; +INSULANT SC; +INSULIN ASPART; +INSULIN ASPART SQ; +JANUVIA OR; +LEVA1TAB2 PO; +LEVA750T7 PO; +LEVO750T PO; +LIPI80TA PO; +LISI-538 PO; +LISI-542 PO; +LISI2.5T5 PO; +LISI20TA5 OR; +LOSA25TA33; +LOSA50TA73 PO; +MAG400TA PO; +MAGN400T5 PO; +MAGN500T2 OR; +MAPA325T2 PO; +METF10004 PO; +MOM30SS PO; +MOTR200T44 PO; +MULTCAP PO; +NACL IVF; +NEUR100C OR; +NEUR100C PO; +NICO14DI3 TD; +NYST10PW TOP; +ONDA4TAB5 PO; +OXCA150T21 PO; +OXCA15HATB OR; +OXYC15TA76 PO; +OXYC1CON PO; +OXYC1SOL3 PO; +OXYCO5TA PO; +PEG1POW PO; +PERC5TAB PO; +PERC5TAB12 PO; +PERC5TAB8 OR; +PERCOCET PO; +PRIN10TA PO; -PROHANCE 279.3MG/ML 15ML VIAL (A9576) As Ordered; -PROHANCE 279.3MG/ML 5ML VIAL (A9576) As Ordered; +REGL5TAB2 PO; +ROBA750T4 PO; +ROXI1TAB2 PO; +SALI0.9I2 IV; +SENO8.6T9 PO; +SIMV80TA OR; +SLF IV; +TEFL600I IV; +TOUJ1.2I SC; +TRIA1OI EXT; +TRIA1OI TOP; +TRIL150T PO; +TRIL1TAB PO; +TRIL300S PO; +TYLE325T5 PO; +TYLE650T30 PO; +VANC10005 INJ; +VANC1INJ IV; +VARE1TA PO; +VITA500T PO; +VITMTA PO; +ZOLO100T PO; +ZOLO25TA PO; +ZOLO50TA OR; +[UNRECOGNIZED DRUG - CODE] EXT; +[UNRECOGNIZED DRUG - OTHER]; +[UNRECOGNIZED DRUG - OTHER]; +[UNRECOGNIZED DRUG - OTHER] IVFLUSH; +lantus SQ; +tricor PO
[2018-06-13 22:04] LABS: APPEARANCE, URINE CLOUDY (CLEAR); BACTERIA, URINE AUTO 1+ (NEGATIVE); BILIRUBIN, URINE AUTO NEGATIVE (NEGATIVE); BLOOD, URINE BLOOD 1+ (NEGATIVE); COLOR, URINE YELLOW (YELLOW); GLUCOSE, URINE (UA) AUTO 3+ mg/dL (NEGATIVE); KETONE, URINE AUTO TRACE mg/dL (NEGATIVE); LEUKOCYTE ESTERASE, URINE AUTO 3+ (NEGATIVE); NITRITE, URINE AUTO NEGATIVE (NEGATIVE); PROTEIN, URINE AUTO 2+ mg/dL (NEGATIVE); RBC, URINE AUTO 10 /HPF (0-3); SPECIFIC GRAVITY URINE AUTO 1.022 (1.002-1.035); SQUAMOUS EPITHELIAL CELL UR AU 3 /HPF (0-6); UROBILINOGEN, URINE AUTO 0.2 mg/dL (0.0-2.0); WBC, URINE AUTO TNTC /HPF (0-3)
== END ==
LOC: M LAB REF 12:28
PROVIDERS: ATTEND Nurse Practitioner Family
DX: N39.0 Urinary tract infection, site not specified (principal)

== ENCOUNTER → 2018-09-21 | Outpatient (CLI) | payer OTHER ==
[~2018-09-21] MED LIST changes: -GABA800T PO; +GABA800T4 PO; +LOSA25TA14; -LOSA25TA33; -LOSA50TA73 PO; +LOSA50TA88 PO
[2018-09-21 14:26] LABS: BASO # 0.1 10^3/uL (0.0-0.2); BASO % 0.9 % (0.0-1.0); EOS # 0.3 10^3/uL (0.0-0.50); EOS % 2.4 % (0.0-3.0); HEMOGLOBIN 12.1 g/dl (12.0-15.5); LYMPH # 4.2 10^3/uL (1.5-4.5); LYMPH % 37.6 % (24.0-44.0); MEAN CORPUSCULAR HEMOGLOBIN 27.1 pg (27.0-33.0); MEAN CORPUSCULAR HGB CONC 31.8 g/dl (32.0-36.5); MEAN CORPUSCULAR VOLUME 85.2 fl (80.0-96.0); MONO # 0.7 10^3/uL (0.0-0.8); MONO % 6.7 % (0.0-5.0); NEUTROPHILS # 5.7 10^3/uL (1.8-7.7); NEUTROPHILS % 51.3 % (36.0-66.0); PLATELET COUNT, AUTOMATED 484 10^3/uL (150-450); RED BLOOD COUNT 4.46 10^6/uL (4.00-5.40); WHITE BLOOD COUNT 11.1 10^3/uL (4.0-10.0)
[2018-09-21 15:00] LABS: ALBUMIN 2.6 GM/DL (3.2-5.2); ALT/SGPT 28 U/L (12-78); BILIRUBIN,TOTAL 0.3 MG/DL (0.2-1.0); BLOOD UREA NITROGEN 11 MG/DL (7-18); CALCIUM LEVEL 8.6 MG/DL (8.5-10.1); CARBON DIOXIDE LEVEL 23 MEQ/L (21-32); CHLORIDE LEVEL 104 MEQ/L (98-107); CREATININE FOR GFR 0.64 MG/DL (0.55-1.30); GLOMERULAR FILTRATION RATE > 60.0 (>51); GLUCOSE, FASTING 266 MG/DL (70-100); POTASSIUM SERUM 4.8 MEQ/L (3.5-5.1); SODIUM LEVEL 137 MEQ/L (136-145); TOTAL PROTEIN 5.9 GM/DL (6.4-8.2)
[2018-09-21 15:23] LABS: MAU/CREAT RATIO 2418.7 MCG/MG (0.0-30.0)
== END ==
LOC: M LAB 12:53
PROVIDERS: ATTEND Physician Assistant
DX: E11.65 Type 2 diabetes mellitus with hyperglycemia (principal)

== ENCOUNTER → 2018-10-18 | Outpatient (CLI) | payer OTHER ==
[~2018-10-18] MED LIST changes: -/CELE20CA PO; -/FENO48TA OR; -/LINE60TA OR; -ASCO25TA PO; -ASPI1TAB PO; +ASPI81TA26 PO; +CEFA1INJ19 IV; -CEFA1VL IV; +CEFD300C41 PO; -CEFD300CAP PO; +CELE1CAP4 PO; -DULO30CA PO; +DULO30CA9 PO; +LISI-1046 PO; -LISI2.5T5 PO; +NYST-15 TOP; -NYST10PW TOP; -OXCA15HATB OR; +OXCA1TAB OR; +OXYC-517 PO; -OXYCO5TA PO; +TRIC1TAB OR; +VITA1TAB23 PO; +ZYVO100T OR
--- NOTE | 2018-10-18 15:22 | REP ---
RIGHT SHOULDER: Three views. HISTORY: Pain in the right shoulder. FINDINGS: There are benign bone islands in the humeral head, which are unchanged from comparison chest radiograph September 16, 2014. Glenohumeral and acromioclavicular joints are normally aligned. Periarticular soft tissues are unremarkable. No erosive change is seen. IMPRESSION: Bone islands in the humeral head. Otherwise negative radiographs of the right shoulder. Electronically Signed by Kit Sandhu MD 10/18/2018 04:12 P
== END ==
LOC: M RAD 13:24
PROVIDERS: ATTEND Internal Medicine
DX: M89.8X2 Other specified disorders of bone, upper arm (principal)

== ENCOUNTER → 2019-02-09 | Outpatient (REF) | payer OTHER ==
[2019-02-09 21:52] LABS: BACTERIA, URINE AUTO NEGATIVE (NEGATIVE); RBC, URINE AUTO 4 /HPF (0-3); SQUAMOUS EPITHELIAL CELL UR AU 2 /HPF (0-6); WBC, URINE AUTO TNTC /HPF (0-3)
[2019-02-09 22:06] LABS: APPEARANCE, URINE CLOUDY (CLEAR); COLOR, URINE YELLOW (YELLOW); SPECIFIC GRAVITY URINE AUTO 1.024 (1.002-1.035)
[2019-02-09 22:07] LABS: BILIRUBIN, URINE AUTO NEGATIVE (NEGATIVE); BLOOD, URINE BLOOD 1+ (NEGATIVE); GLUCOSE, URINE (UA) AUTO 3+ mg/dL (NEGATIVE); KETONE, URINE AUTO 1+ mg/dL (NEGATIVE); LEUKOCYTE ESTERASE, URINE AUTO 2+ (NEGATIVE); NITRITE, URINE AUTO NEGATIVE (NEGATIVE); PROTEIN, URINE AUTO 3+ mg/dL (NEGATIVE); UROBILINOGEN, URINE AUTO 0.2 mg/dL (0.0-2.0)
== END ==
LOC: M LAB REF 10:34
PROVIDERS: ATTEND Physician Assistant Medical
DX: N39.0 Urinary tract infection, site not specified (principal)

== ENCOUNTER → 2019-02-18 | Outpatient (CLI) | payer OTHER ==
[~2019-02-18] MED LIST changes: -AZIT500T2 PO; +AZIT500T5 PO; +ONDA-83 PO; -ONDA4TAB5 PO
--- NOTE | 2019-02-18 12:53 | REP ---
Pelvic ultrasound including transabdominal, endovaginal and Doppler ultrasound assessment: The bladder is adequately distended. The uterus is upper normal size measuring 9.6 x 5.3 x 5.1 cm. The myometrium is very dense and difficult to penetrate with the acoustic beam. This may represent diffuse fibroid uterus. The endometrium measures 10 mm thickness. This is normal for a premenopausal female but is abnormally thickened for a postmenopausal female. The right ovary is normal size measuring 3.1 x 1.1 x 1.9 cm. There is no dominant right ovarian mass or cyst. The left ovary is normal size measuring 2.8 x 2.0 x 2.5 cm. There is no dominant left ovarian mass or cyst. There is a 2.0 cm left ovarian follicle. There is vascular flow in both ovaries. The Doppler resistive index of the parenchymal arteries in the right ovary is 0.46 and left ovary 0.49. Impression: Endometrial thickness as described. If the patient is postmenopausal the endometrium would be abnormally thickened. The myometrium is acoustically dense and difficult to penetrate. This may represent diffuse fibroid uterus. Electronically Signed by Keith Borges MD 02/18/2019 12:44 P
== END ==
LOC: M RAD 10:25
PROVIDERS: ATTEND Obstetrics & Gynecology
DX: N92.1 Excessive and frequent menstruation with irregular cycle (principal)

== ENCOUNTER → 2019-07-13 | Outpatient (CLI) | payer OTHER ==
--- NOTE | 2019-07-13 14:25 | REPMRS ---
Patient History The patient states she has not had a clinical breast exam in over a year. Patient is postmenopausal. Family history of breast cancer at age 51 in mother. Digital Mammo Screening Bilat: July 13, 2019 - Exam #: [id number] Bilateral CC and MLO view(s) were taken. Technologist: Ladonna Watts, Technologist No prior studies available for comparison. FINDINGS: There are scattered fibroglandular densities. There is no evidence of dominant mass, architectural distortion, or grouped microcalcification typical of malignancy. 3-D tomosynthesis shows no additional findings. Assessment: BI-RADS/ACR category 1 mammogram. Negative Mammogram. Recommendation Routine screening mammogram of both breasts in 1 year (for women over age 40). This patient's Lifetime Breast Cancer RIsk is estimated at 16.8 %. This mammogram was interpreted with the aid of an FDA-approved computer-aided dectection system. Electronically Signed By: Fredo Sandhu MD 07/13/19 [id number]
== END ==
LOC: M RAD 12:32
PROVIDERS: ATTEND Internal Medicine
DX: Z12.31 Encounter for screening mammogram for malignant neoplasm of breast (principal)

== ENCOUNTER → 2019-08-30 | Outpatient (REF) | payer OTHER ==
[2019-08-30 16:48] LABS: MAU/CREAT RATIO 2920.7 MCG/MG (0.0-30.0)
== END ==
LOC: M LAB REF 15:28
PROVIDERS: ATTEND Nurse Practitioner Family
DX: E11.65 Type 2 diabetes mellitus with hyperglycemia (principal)

== ENCOUNTER 2019-10-31 13:45 | Emergency (ER) | payer OTHER ==
[~2019-10-31] VITALS: Ht 157.5 cm; Wt 120.1 kg
[~2019-10-31 13:45] MED LIST changes: -LISI-1046 PO; +LISI2.5T2 PO; -MAPA325T2 PO; +MAPA325T8 PO; +OXYC-1 PO; -OXYC15TA76 PO; +VITA-243 PO; -VITA500T PO
[2019-10-31] MEDS ORDERED: AMLO5TAB6 PO (14:09)
[2019-10-31] MEDS ORDERED: BASA100I SC (14:09)
[2019-10-31] MEDS ORDERED: TRUL0.5I SC (14:09)
[2019-10-31] MEDS: IBUPROFEN 600 MG TAB PO ONE (14:19)
--- NOTE | 2019-10-31 15:25 | REP ---
LEFT HUMERUS, TWO VIEWS: There is no evidence of an acute fracture, dislocation or intrinsic bone disease. There is mild inferior glenoid spurring. IMPRESSION: No fracture or dislocation. Electronically Signed by Keith García MD 10/31/2019 04:02 P
--- NOTE | 2019-10-31 15:26 | REP ---
LEFT FOREARM, TWO VIEWS: There is no evidence of an acute fracture, dislocation or intrinsic bone disease. IMPRESSION: No fracture or dislocation. Electronically Signed by Keith García MD 10/31/2019 04:02 P
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
[2019-10-31] MEDS ORDERED: IBUP-1022 PO (15:32)
[2019-10-31 16:00] VITALS: BP 178/79
== END 2019-10-31 16:02 | disposition home or self-care (01) ==
LOC: M ED 13:45
DX: S20.219A Contusion of unspecified front wall of thorax, initial encounter (principal); S40.022A Contusion of left upper arm, initial encounter; V03.99XA Pedestrian with other conveyance injured in collision with car, pick-up truck or van, unspecified whether traffic or nontraffic accident, initial encounter; Y92.410 Unspecified street and highway as the place of occurrence of the external cause; I10 Essential (primary) hypertension; E11.9 Type 2 diabetes mellitus without complications; Z79.899 Other long term (current) drug therapy; Z88.8 Allergy status to other drugs, medicaments and biological substances; Z88.1 Allergy status to other antibiotic agents

== ENCOUNTER → 2019-11-15 | Outpatient (REF) | payer OTHER ==
[~2019-11-15] MED LIST changes: +ACET25TA12 PO; +AMLO5TAB6 PO; +BASA100I SC; +DULO60CA35 PO; +IBUP-1022 PO; +IBUP1TAB6 PO; +TRUL0.5I SC
== END ==
LOC: M LAB REF 12:42
PROVIDERS: ATTEND Surgery
DX: L97.512 Non-pressure chronic ulcer of other part of right foot with fat layer exposed (principal); E11.621 Type 2 diabetes mellitus with foot ulcer

== ENCOUNTER 2019-11-23 11:21 | Inpatient (IN) | payer OTHER ==
[~2019-11-23] VITALS: Ht 160 cm; Wt 114.9 kg
[~2019-11-23 11:21] MED LIST changes: -ACET25TA12 PO; -DULO60CA35 PO; -IBUP1TAB6 PO
--- NOTE | 2019-11-23 12:02 | HPEPDOC ---
[facility] Medical History & Physical Date of Admission November 23, 2019 Date of Service: November 23, 2019 History and Physical CHIEF COMPLAINT: non-healing DFU HISTORY OF PRESENT ILLNESS: 54 yo female sent by Dr. August for admission for non-healing right plantar diabetic foot ulcer. Patient has no new medical co mplaints, PMHx medical non-compliance, IDDM and chronic right foot osteomyelitis. PAST MEDICAL HISTORY: #IDDM #diabetic neuropathy #chronic OM right foot - polymicrobial #HTN #DLP #BIPOLAR DISORDER #NASAL CARRIER MRSA #MORBID OBESITY # medical non-compliance ALLERGIES: Please see below. REVIEW OF SYSTEMS: Negative except as per HPI HOME MEDICATIONS: Please see below. PHYSICAL EXAMINATION: VITAL SIGNS: See below General: NAD, anxious HEENT: NC/AT, EOMI Lungs: CTA B/L Heart: +s12s2, RRR Abd: obese, soft, NT, +BS Ext: right foot bandages in place; b/l TMA, plantar surface wound, lateral/medial necrotic changes LABORATORY DATA: See below. MICROBIOLOGY: Please see below. ASSESSMENT/PLAN: 54 yo female sent by legal service specialist for direct admission for non-healing DFU, needing IV ABx. PMHx includes chronic right foot osteomyelitis, and medical non-compliance. #non-healing DFU - IV antibiotics - ID consultation - wound care c/s #IDDM -sliding scale #diabetic neuropathy #HTN #DLP #BIPOLAR DISORDER #MORBID OBESITY - complicates medical care #DVT prophylaxis Home Medications Scheduled Amlodipine Besylate (Amlodipine Besylate) 5 Mg Tablet, 5 MG PO DAILY Atorvastatin Calcium (Atorvastatin Calcium) 40 Mg Tab, 40 MG PO QHS Dulaglutide (Trulicity) 1.5 Mg/0.5 Ml Pen.injctr, 1.5 MG SC QWEEK SATURDAYS Duloxetine HCl (Duloxetine HCl) 60 Mg Capsule.dr, 60 MG PO QHS Furosemide (Furosemide) 40 Mg Tablet, 40 MG PO DAILY Insulin Glargine,Hum.rec.anlog (Basaglar Kwikpen U-100) 100 Unit/1 Ml Insuln.pen, 55 UNIT SC BID Losartan Potassium (Losartan Potassium) 50 Mg Tab, 100 MG PO DAILY Metformin HCl (Metformin HCl) 1,000 Mg Tab, 1,000 MG PO BID Multivitamins (Thera M Plus Tablet) 1 Tab Tab, 1 TAB PO DAILY Scheduled PRN Acetaminophen/Diphenhydramine (Acetaminophen Pm Caplet) 1 Each Tablet, 2 TAB PO QHS PRN for PAIN Ibuprofen (Ibuprofen) 600 Mg Tablet, 600 MG PO Q6H PRN for PAIN with food Allergies Coded Allergies: cefazolin (Verified Allergy, Unknown, hives, 10/31/19) fluoxetine (Verified Allergy, Unknown, hives, 10/31/19) pseudoephedrine (Verified Allergy, Unknown, hives, 10/31/19) trazodone (Verified Allergy, Unknown, hives, 10/31/19) A-FIB/CHADSVASC A-FIB History Current/History of A-Fib/PAF?: No AZUCENA BOYD MD November 23, 2019 12:02
[2019-11-23 12:36] VITALS: BP 185/93
[2019-11-23 13:03] LABS: HEMATOCRIT 33.9 % (36.0-47.0); HEMOGLOBIN 10.8 g/dl (12.0-15.5); MEAN CORPUSCULAR HEMOGLOBIN 28.1 pg (27.0-33.0); MEAN CORPUSCULAR HGB CONC 31.9 g/dl (32.0-36.5); MEAN CORPUSCULAR VOLUME 88.1 fl (80.0-96.0); PLATELET COUNT, AUTOMATED 593 10^3/uL (150-450); RED BLOOD COUNT 3.85 10^6/uL (4.00-5.40); WHITE BLOOD COUNT 15.7 10^3/uL (4.0-10.0)
[2019-11-23] MEDS ORDERED: ACET25TA12 PO (13:05)
[2019-11-23] MEDS ORDERED: IBUP1TAB6 PO (13:05)
[2019-11-23] MEDS ORDERED: FURO40TA2 PO (13:05)
[2019-11-23] MEDS ORDERED: DULO60CA35 PO (13:05)
[2019-11-23 13:17] LABS: ALBUMIN 2.4 GM/DL (3.2-5.2); ALT/SGPT 20 U/L (12-78); BILIRUBIN,TOTAL 0.2 MG/DL (0.2-1.0); BLOOD UREA NITROGEN 17 MG/DL (7-18); CALCIUM LEVEL 9.8 MG/DL (8.5-10.1); CARBON DIOXIDE LEVEL 21 MEQ/L (21-32); CHLORIDE LEVEL 101 MEQ/L (98-107); CREATININE FOR GFR 0.84 MG/DL (0.55-1.30); GLOMERULAR FILTRATION RATE > 60.0 (>51); GLUCOSE, FASTING 329 MG/DL (70-100); POTASSIUM SERUM 4.9 MEQ/L (3.5-5.1); SODIUM LEVEL 133 MEQ/L (136-145); TOTAL PROTEIN 7.8 GM/DL (6.4-8.2)
[2019-11-23 14:00] VITALS: BP 176/92
[2019-11-23 14:01] LABS: ERYTHROCYTE SEDIMENTATION RATE 125 mm/hr (0-30)
[2019-11-23] MEDS: LOSARTAN 50MG TABLET PO SCH (14:10)
[2019-11-23] MEDS: amLODIPine 5 MG TAB PO SCH (14:11)
[2019-11-23] MEDS: MULTIVITAMINS/MINERALS THERAP 1 TAB PO SCH (14:11)
[2019-11-23] MEDS: FUROSEMIDE 40 MG TAB PO SCH (14:11)
[2019-11-23 14:35] LABS: HEMOGLOBIN A1c 9.5 %
--- NOTE | 2019-11-23 17:51 | REP ---
MRI FOOT: TECHNIQUE: Multiple sequences obtained in the axial, coronal, and sagittal planes without the use of intravenous contrast. The patient has had prior amputation at the level of the shafts of the metatarsals. Bone marrow signal is homogeneous and unremarkable. There is no bone marrow edema or occult fracture. There is no MR evidence of osteomyelitis. Diffuse ill-defined high signal in the soft tissues is compatible with diffuse edema. There is skin thickening and apparent soft tissue inflammation and cellulitis in the distal anterior soft tissues of the remaining foot. There is a small pocket of fluid just distal to the remaining portion of the 4th metatarsal. This measures 1.2 cm in diameter. I cannot exclude a small abscess. No other discrete fluid collection is seen. IMPRESSION: No MR evidence of occult fracture or osteomyelitis. Diffuse soft tissue edema. Cellulitis in the soft tissues of the forefoot. Small pocket of fluid 1.2 cm in diameter just distal to the remaining portion of the 4th metatarsal may represent a small abscess. Electronically Signed by Keith García MD 11/24/2019 12:39 P
[2019-11-23] MEDS: cefTRIAXone SOD 1 GM in D5W MINI-BAG PLUS 50 ML IV SCH (18:17)
[2019-11-23] MEDS ORDERED: MORPHINE 2 MG/ML 1ML VIAL (J2270) IV PRN (18:30)
[2019-11-23] MEDS ORDERED: LevoFLOXacin 750 MG TABLET PO ONE (18:30)
[2019-11-23] MEDS: PERCOCET 5MG/325MG TAB PO PRN ×2 (18:53→23:17)
[2019-11-23] MEDS: DULoxetine 30 MG CAP (CYMBALTA) PO SCH (20:54)
[2019-11-23] MEDS: ATORVASTATIN 20 MG TAB PO SCH (20:54)
[2019-11-23 22:00] VITALS: BP 138/16
[2019-11-24] MEDS: cefTRIAXone SOD 1 GM in D5W MINI-BAG PLUS 50 ML IV SCH ×2 (01:10→14:16)
[2019-11-24] MEDS ORDERED: GLUCAGON INJ 1MG VIAL SC PRN (03:45)
[2019-11-24] MEDS ORDERED: DEXTROSE 50% 50 ML SYRINGE IV PRN (03:45)
[2019-11-24] MEDS ORDERED: GLUCOSE 4GM CHEW TABLET PO PRN (03:45)
[2019-11-24] MEDS ORDERED: MORPHINE 30 MG TAB **MSIR PO PRN (04:30)
[2019-11-24] MEDS ORDERED: PERCOCET 5MG/325MG TAB PO ONE (05:00)
[2019-11-24 06:00] VITALS: BP 144/68
[2019-11-24 07:28] LABS: HEMATOCRIT 31.1 % (36.0-47.0); MEAN CORPUSCULAR HEMOGLOBIN 28.2 pg (27.0-33.0); MEAN CORPUSCULAR HGB CONC 32.2 g/dl (32.0-36.5); MEAN CORPUSCULAR VOLUME 87.9 fl (80.0-96.0); PLATELET COUNT, AUTOMATED 557 10^3/uL (150-450); RED BLOOD COUNT 3.54 10^6/uL (4.00-5.40); WHITE BLOOD COUNT 15.3 10^3/uL (4.0-10.0)
[2019-11-24 07:48] LABS: BLOOD UREA NITROGEN 17 MG/DL (7-18); CALCIUM LEVEL 9.1 MG/DL (8.5-10.1); CARBON DIOXIDE LEVEL 26 MEQ/L (21-32); CHLORIDE LEVEL 99 MEQ/L (98-107); CREATININE FOR GFR 0.84 MG/DL (0.55-1.30); GLOMERULAR FILTRATION RATE > 60.0 (>51); GLUCOSE, FASTING 373 MG/DL (70-100); POTASSIUM SERUM 4.8 MEQ/L (3.5-5.1); SODIUM LEVEL 132 MEQ/L (136-145)
[2019-11-24] MEDS ORDERED: FLUBLOK(EGG FREE)(QUAD)INFLUENZA VACC 0.5ML SYRINGE (90682)18YRS&OLDER IM ONE (09:00)
[2019-11-24] MEDS: HumaLOG INSULIN (NovoLOG) PER UNIT SC SCH ×4 (09:31→20:00)
[2019-11-24] MEDS: LEVEMIR (INSULIN DETEMIR) 1 UNITS/0.01ML SC SCH ×2 (09:31→20:20)
[2019-11-24] MEDS: FUROSEMIDE 40 MG TAB PO SCH (09:34)
[2019-11-24] MEDS: MULTIVITAMINS/MINERALS THERAP 1 TAB PO SCH (09:34)
[2019-11-24] MEDS: amLODIPine 5 MG TAB PO SCH (09:36)
[2019-11-24] MEDS: LOSARTAN 50MG TABLET PO SCH (09:37)
[2019-11-24] MEDS: PERCOCET 5MG/325MG TAB PO PRN ×2 (09:38→18:21)
--- NOTE | 2019-11-24 10:22 | IPNPDOC ---
Text Note Date of Service The patient was seen on 11/24/19. NOTE Subjective: Patient seen and examined at bedside. PICC line not placed yesterday, pending prelim blood cultures. Patient has no new medical complaints. No acute overnight events reported. Objective: VITAL SIGNS: See below General: NAD, anxious HEENT: NC/AT, EOMI Lungs: CTA B/L Heart: +s12s2, RRR Abd: obese, soft, NT, +BS Ext: right foot bandages in place; b/l TMA, plantar surface wound, lateral/medial necrotic changes ASSESSMENT/PLAN: 54 yo female sent by alternative financing specialist for direct admission for non-healing DFU, needing IV ABx. PMHx includes chronic right foot osteomyelitis, and medical non-compliance. #non-healing DFU - no MRI evidence of osteo - elevated ESR/CRP - IV antibiotics once PICC line in place - was given one dose of levaquin as per recent wound cultures - ID consultation - wound care c/s #IDDM -sliding scale #diabetic neuropathy #HTN #DLP #BIPOLAR DISORDER/depression - duloxetine #MORBID OBESITY - complicates medical care #DVT prophylaxis VS,Fishbone, I+O VS, Fishbone, I+O Laboratory Tests 11/23/19 12:46 11/24/19 06:12 Vital Signs Date Time Temp Pulse Resp B/P (MAP) Pulse Ox O2 Delivery O2 Flow Rate FiO2 11/24/19 09:38 18 Room Air 11/24/19 09:37 141/68 11/24/19 09:36 83 11/24/19 06:00 97.7 92 I&O- Last 24 Hours up to 6 AM 11/24/19 06:00 Intake Total 1425 ml Output Total 2250 ml Balance -825 ml AZUCENA BOYD MD November 24, 2019 10:22
[2019-11-24] MEDS ORDERED: LIDOCAINE 1% MDV 20ML VIAL As Ordered ONE (12:20)
[2019-11-24] MEDS: DIAPER RELIEF PASTE (DESITIN) 60GM TOP SCH (12:41)
[2019-11-24] MEDS ORDERED: ALPRAZolam 0.5 MG TAB PO ONE (13:00)
[2019-11-24 14:00] VITALS: BP 140/68
[2019-11-24] MEDS: SODIUM CHLORIDE 0.9% INJ 10 ML SYR IV PRN (15:27)
--- NOTE | 2019-11-24 17:12 | REP ---
Procedure: PICC line insertion with Chacha The procedure was performed under the direct supervision of Dr. García. The risks and benefits of the procedure were explained to the patient and informed consent was obtained. The right basilic vein was localized using ultrasound guidance. The skin was prepped and draped in a sterile fashion. 1% lidocaine was used as a local anesthetic. Using ultrasound guidance an attempt is made to cannulate the basilic vein however this was unsuccessful. The right brachial vein was localized using ultrasound guidance. 1% lidocaine was used as a local anesthetic. Using ultrasound guidance the brachial vein was cannulated and a 0.018 guidewire was inserted and advanced to the SVC using fluoroscopic guidance. The needle was removed and a 5.5 Albanian dilator and peel-away sheath was inserted over the guide wire. A 5.5 Albanian dual lumen catheter was cut to length of 37 cm. The dilator was removed and the catheter was inserted over the guide wire with the tip ending in the SVC. The peel-away sheath was removed and the catheter was flushed with heparinized saline as per Hospital protocol. The catheter was affixed to the skin and a sterile dressing was applied. The patient tolerated the procedure well and there were no immediate complications. 0.5 minutes of fluoro time was utilized for this procedure. Electronically Signed by LEONID Escobar 11/24/2019 03:01 P Electronically Signed by Keith García MD 11/24/2019 05:03 P
[2019-11-24] MEDS: SODIUM CHLORIDE 0.9% INJ 10 ML SYR IV SCH (18:20)
[2019-11-24] MEDS: DULoxetine 30 MG CAP (CYMBALTA) PO SCH (20:21)
[2019-11-24] MEDS: ATORVASTATIN 20 MG TAB PO SCH (20:21)
[2019-11-24 22:00] VITALS: BP 140/66
[2019-11-25] VITALS (9 sets, daily range): BP systolic 102–153; BP diastolic 46–73
[2019-11-25] MEDS: cefTRIAXone SOD 1 GM in D5W MINI-BAG PLUS 50 ML IV SCH (01:57)
[2019-11-25] MEDS: SODIUM CHLORIDE 0.9% INJ 10 ML SYR IV PRN (02:49)
[2019-11-25] MEDS: PERCOCET 5MG/325MG TAB PO PRN ×2 (02:50→15:34)
[2019-11-25] MEDS: SODIUM CHLORIDE 0.9% INJ 10 ML SYR IV SCH ×2 (05:19→20:51)
[2019-11-25 05:46] LABS: HEMOGLOBIN 10.1 g/dl (12.0-15.5); MEAN CORPUSCULAR HEMOGLOBIN 27.7 pg (27.0-33.0); MEAN CORPUSCULAR HGB CONC 31.6 g/dl (32.0-36.5); MEAN CORPUSCULAR VOLUME 87.7 fl (80.0-96.0); PLATELET COUNT, AUTOMATED 558 10^3/uL (150-450); RED BLOOD COUNT 3.65 10^6/uL (4.00-5.40)
[2019-11-25 06:10] LABS: BLOOD UREA NITROGEN 19 MG/DL (7-18); CALCIUM LEVEL 9.1 MG/DL (8.5-10.1); CARBON DIOXIDE LEVEL 25 MEQ/L (21-32); CHLORIDE LEVEL 102 MEQ/L (98-107); CREATININE FOR GFR 0.77 MG/DL (0.55-1.30); GLOMERULAR FILTRATION RATE > 60.0 (>51); GLUCOSE, FASTING 248 MG/DL (70-100); POTASSIUM SERUM 4.5 MEQ/L (3.5-5.1); SODIUM LEVEL 134 MEQ/L (136-145)
--- NOTE | 2019-11-25 08:14 | REP ---
RIGHT FOOT: Two views. HISTORY: Evaluate for osteomyelitis. COMPARISON STUDY: March 09, 2018. FINDINGS: There is soft-tissue swelling over the forefoot stump. The patient is status post transmetatarsal amputation of all five digits. There is overlying dressing artifact. No soft tissue gas is seen. No acute bony erosive changes seen. However, there are two metallic foreign bodies projecting in the volar soft tissues of the midfoot, one laterally and one at the level of the second tarsometatarsal articulation. These were not apparent on the March 09, 2018 prior study. They are thin linear metallic densities suggesting pin or needle fragments. There is Achilles and plantar calcaneal spurring. IMPRESSION: No acute bony erosive change or soft tissue gas is seen. Status post transmetatarsal amputation of all five digits. There are two metallic foreign bodies projecting in the plantar soft tissues of the midfoot which were not apparent on March 09, 2018 as described above. Electronically Signed by Kit Sandhu MD 11/25/2019 09:12 A
[2019-11-25] MEDS: MULTIVITAMINS/MINERALS THERAP 1 TAB PO SCH (08:23)
[2019-11-25] MEDS: LOSARTAN 50MG TABLET PO SCH (08:24)
[2019-11-25] MEDS: amLODIPine 5 MG TAB PO SCH (08:24)
[2019-11-25] MEDS: FUROSEMIDE 40 MG TAB PO SCH (08:24)
[2019-11-25] MEDS: LEVEMIR (INSULIN DETEMIR) 1 UNITS/0.01ML SC SCH ×2 (08:25→21:40)
[2019-11-25] MEDS: HumaLOG INSULIN (NovoLOG) PER UNIT SC SCH ×4 (08:25→21:40)
[2019-11-25] MEDS: DIAPER RELIEF PASTE (DESITIN) 60GM TOP SCH (08:26)
--- NOTE | 2019-11-25 10:30 | IPNPDOC ---
Text Note Date of Service The patient was seen on 11/25/19. NOTE Subjective: Patient seen and examined at bedside. PICC line placed yesterday. No acute overnight events reported. Patient has no new medical complaints this morning. States she is feeling better Objective: VITAL SIGNS: See below General: NAD, anxious HEENT: NC/AT, EOMI Lungs: CTA B/L Heart: +s12s2, RRR Abd: obese, soft, NT, +BS Ext: bandages in place ASSESSMENT/PLAN: 54 yo female sent by pharmaceutical sales specialist for direct admission for non-healing DFU, needing IV ABx. PMHx includes chronic right foot osteomyelitis, and medical non-compliance. #non-healing DFU - no MRI evidence of osteo - elevated ESR/CRP - PICC line placed - Ceftriaxone started - ID consultation - wound care c/s - Dr. August appreciated #IDDM -sliding scale #diabetic neuropathy #HTN #DLP #BIPOLAR DISORDER/depression - duloxetine #MORBID OBESITY - complicates medical care #DVT prophylaxis VS,Fishbone, I+O VS, Fishbone, I+O Laboratory Tests 11/25/19 05:24 Vital Signs Date Time Temp Pulse Resp B/P (MAP) Pulse Ox O2 Delivery O2 Flow Rate FiO2 11/25/19 08:24 77 136/62 11/25/19 06:00 96.7 18 95 Room Air I&O- Last 24 Hours up to 6 AM 11/25/19 06:00 Intake Total 1780 ml Output Total 200 ml Balance 1580 ml AZUCENA BOYD MD November 25, 2019 10:30
[2019-11-25] MEDS ORDERED: VANCOMYCIN HCL 1,000 MG, VIAL MATE ADAPTER 1 EACH in D5W 250 ML IV SCH (15:00)
[2019-11-25] MEDS: PIPERACILLIN/TAZOBACTAM SOD 3.375 GM in D5W MINI-BAG PLUS 50 ML IV SCH ×2 (15:33→20:51)
--- NOTE | 2019-11-25 15:37 | IPN ---
DATE OF VISIT: 11/25/2019 CHIEF COMPLAINT: 54-year-old female seen for evaluation of an infection in her right foot. The patient is being seen by Dr. August and has been seen by me in the past. She states that she has had some swelling, discharge, and purulence extending from a medial and lateral foot ulcer. She has had transmetatarsal amputations in the past, and she is seen today for evaluation. PAST MEDICAL HISTORY: Insulin-dependent diabetes mellitus. Diabetic neuropathy. Chronic osteomyelitis. History of transmetatarsal amputations. Hypertension. Bipolar disorder. Morbid obesity. ALLERGIES: To CEPHALOSPORIN, DULOXETINE, PSEUDOEPHEDRINE, and TRAZODONE. PHYSICAL EXAMINATION: Reveals an alert, well oriented 54-year-old female. Evaluation of her foot reveals three ulcerations on the plantar surface of the foot, one inferior to the area of transmetatarsal first metatarsal area, one proximal under the second and third metatarsal area, one under the lateral side of the foot under the fourth and fifth metatarsal area. Erythema extends throughout the distal area of the foot. X-rays were evaluated revealing no signs of osteomyelitis but there was a radiopaque object noted in the mid foot and the distal 1/4 of her foot. This is roughly in the location proximal to the fifth metatarsal and over the first cuneiform area. MRI was reviewed revealing no signs of acute osteomyelitis. There is a 1.2 cm area of fluid consistent with abscess inferior to the fourth metatarsal. ASSESSMENT: Abscess formation, chronic, stage II ulcerations, right foot. PLAN: The patient is scheduled for incision and drainage of abscess plantar surface right foot with irrigation with dilute vancomycin solution, wound packing with iodoform gauze. Consent was obtained and signed by the patient. The patient has been nothing by mouth since 8 p.m. Her questions are answered.
[2019-11-25] MEDS ORDERED: VANCOMYCIN HCL 1,000 MG, VIAL MATE ADAPTER 1 EACH in D5W 250 ML IV ONE ×2 (16:00→19:00)
[2019-11-25] MEDS ORDERED: MIDAZOLAM INJ 2MG/2ML VIAL (J2250 PER 1MG) As Ordered ONE (16:12)
[2019-11-25] MEDS ORDERED: propofoL 200 MG/20 ML VIAL As Ordered ONE ×2 (16:12→16:14)
[2019-11-25] MEDS ORDERED: fentaNYL 100 MCG/2 ML INJECTION (J3010) As Ordered ONE (16:12)
[2019-11-25] MEDS ORDERED: ONDANSETRON 4MG/2ML VIAL As Ordered ONE (16:12)
[2019-11-25] MEDS ORDERED: LIDOCAINE 2% 100MG/5ML SDV (FOR ANES.) As Ordered ONE (16:12)
[2019-11-25] MEDS ORDERED: BUPIVACAINE HCL 0.5% 10ML VIAL As Ordered ONE (16:16)
[2019-11-25] MEDS ORDERED: LIDOCAINE 2% MDV 20ML VIAL As Ordered ONE (16:17)
[2019-11-25] MEDS ORDERED: VANCOMYCIN 1000MG/20ML VIAL As Ordered ONE (16:17)
[2019-11-25] MEDS ORDERED: NEOSPORIN GU IRRIG 20 ML VIAL As Ordered ONE (16:17)
[2019-11-25] MEDS ORDERED: dexameTHASONE 4 MG/ML 1ML VIAL (J1100 PER 1MG) As Ordered ONE (16:17)
[2019-11-25] MEDS ORDERED: BACITRACIN PWD 50,000 UNITS VIAL As Ordered ONE (16:17)
[2019-11-25] MEDS ORDERED: LABETALOL 100MG/20ML VIAL As Ordered ONE (17:12)
[2019-11-25] MEDS ORDERED: PHENYLephrine HCL 500 MCG/5 ML (100MCG/ML) SYRINGE (J2370) As Ordered ONE (17:47)
[2019-11-25] MEDS ORDERED: fentaNYL 100 MCG/2 ML INJECTION (J3010) IV PRN (18:15)
[2019-11-25] MEDS ORDERED: ONDANSETRON 4MG/2ML VIAL IV PRN (18:15)
[2019-11-25] MEDS ORDERED: METOCLOPRAMIDE INJ 10MG/2ML VIAL (J2765 PER 1) IV PRN (18:15)
[2019-11-25] MEDS ORDERED: PERCOCET 5MG/325MG TAB PO PRN (18:15)
[2019-11-25] MEDS: VANCOMYCIN HCL 1,000 MG, VIAL MATE ADAPTER 1 EACH in D5W 250 ML IV SCH (19:36)
[2019-11-25] MEDS: ONDANSETRON 4 MG ORAL DISINTEGRATING TAB PO PRN (20:52)
[2019-11-25] MEDS: ATORVASTATIN 20 MG TAB PO SCH (21:39)
[2019-11-25] MEDS: DULoxetine 30 MG CAP (CYMBALTA) PO SCH (21:39)
[2019-11-26] MEDS: PIPERACILLIN/TAZOBACTAM SOD 3.375 GM in D5W MINI-BAG PLUS 50 ML IV SCH ×4 (01:47→19:39)
[2019-11-26 02:00] VITALS: BP 124/61
[2019-11-26] MEDS: VANCOMYCIN HCL 1,000 MG, VIAL MATE ADAPTER 1 EACH in D5W 250 ML IV SCH ×2 (05:37→17:25)
[2019-11-26] MEDS: SODIUM CHLORIDE 0.9% INJ 10 ML SYR IV SCH ×2 (05:37→17:26)
[2019-11-26] MEDS: ONDANSETRON 4 MG ORAL DISINTEGRATING TAB PO PRN ×2 (05:43→17:25)
[2019-11-26 06:00] VITALS: BP 123/61
[2019-11-26 06:26] LABS: HEMATOCRIT 30.3 % (36.0-47.0); HEMOGLOBIN 9.5 g/dl (12.0-15.5); MEAN CORPUSCULAR HEMOGLOBIN 27.5 pg (27.0-33.0); MEAN CORPUSCULAR HGB CONC 31.4 g/dl (32.0-36.5); MEAN CORPUSCULAR VOLUME 87.8 fl (80.0-96.0); PLATELET COUNT, AUTOMATED 491 10^3/uL (150-450); RED BLOOD COUNT 3.45 10^6/uL (4.00-5.40); WHITE BLOOD COUNT 15.4 10^3/uL (4.0-10.0)
[2019-11-26 06:39] LABS: CALCIUM LEVEL 8.5 MG/DL (8.5-10.1); CREATININE FOR GFR 1.03 MG/DL (0.55-1.30); GLOMERULAR FILTRATION RATE 59.9 (>51); POTASSIUM SERUM 4.2 MEQ/L (3.5-5.1)
[2019-11-26] MEDS: HumaLOG INSULIN (NovoLOG) PER UNIT SC SCH ×4 (08:12→20:56)
[2019-11-26] MEDS: LEVEMIR (INSULIN DETEMIR) 1 UNITS/0.01ML SC SCH ×2 (08:12→20:55)
[2019-11-26] MEDS: MULTIVITAMINS/MINERALS THERAP 1 TAB PO SCH (08:13)
[2019-11-26] MEDS: LOSARTAN 50MG TABLET PO SCH (08:13)
[2019-11-26] MEDS: PERCOCET 5MG/325MG TAB PO PRN ×2 (08:13→19:40)
[2019-11-26] MEDS: FUROSEMIDE 40 MG TAB PO SCH (08:14)
[2019-11-26] MEDS: DIAPER RELIEF PASTE (DESITIN) 60GM TOP SCH (08:14)
[2019-11-26] MEDS: amLODIPine 5 MG TAB PO SCH (08:14)
--- NOTE | 2019-11-26 08:16 | IPNPDOC ---
Text Note Date of Service The patient was seen on 11/26/19. NOTE Subjective: Patient seen and examined at bedside. Underwent debridement last night in an attempt to remove foreign objects (3 insulin needles). As per patient, intervention was not successful. She is feeling better this morning. Overnight she noted polyuria, and a recent UTI. No new medical complaints this morning. Objective: VITAL SIGNS: See below General: NAD, anxious HEENT: NC/AT, EOMI Lungs: CTA B/L Heart: +s12s2, RRR Abd: obese, soft, NT, +BS Ext: bandages in place b/l feet ASSESSMENT/PLAN: 54 yo female sent by foreclosure specialist for direct admission for non-healing DFU, needing IV ABx. PMHx includes chronic right foot osteomyelitis, and medical non-compliance. #non-healing DFU - foreign objects found in right foot (3 insulin needles reported) - s/p debridement - unable to retrieve objects - no MRI evidence of osteo - continue Abx as per ID - assistance appreciated - follow as per podiatry - assistance appreciated - wound care c/s - Dr. August appreciated #UTI - admits to polyuria with +UA - receiving Zosyn as above - UCx pending #IDDM -sliding scale #diabetic neuropathy #HTN #DLP #BIPOLAR DISORDER/depression - duloxetine #MORBID OBESITY - complicates medical care #DVT prophylaxis VS,Fishbone, I+O VS, Fishbone, I+O Laboratory Tests 11/26/19 05:35 Vital Signs Date Time Temp Pulse Resp B/P (MAP) Pulse Ox O2 Delivery O2 Flow Rate FiO2 11/26/19 06:00 98.0 86 16 123/61 (81) 94 Room Air 11/25/19 18:02 2 I&O- Last 24 Hours up to 6 AM 11/26/19 06:00 Intake Total 2485 ml Output Total 1150 ml Balance 1335 ml AZUCENA BOYD MD November 26, 2019 08:16
--- NOTE | 2019-11-26 11:22 | CR ---
DATE OF CONSULTATION: 11/24/2019 ADVANCED WOUND CARE CONSULT VIA TELEMEDICINE This was requested by Dr. Saldana. This is regarding dressing changes and wound care recommendations for the patient's right foot, Krishnamurthy 3 diabetic foot ulcer. This is a 54-year-old neuropathic diabetic female, poorly controlled, status post right transmetatarsal amputation of all digits performed some time ago, who has been followed for a right, nonhealing plantar Krishnamurthy grade 3 diabetic foot ulcer. The wound has which not respond to conservative, standard advanced wound care therapy.. The patient's ABIs are within normal limits and this is not an ischemic wound. Treatment has been wound debridement with collagen and Hydrofera Blue foam along with a customized offloading shoe. Her footwear has been reevaluated by [facility] in an effort to avoid the constant buildup and callus formation involving the amputation suture line it would appear that either the shoe is not fitting properly with the patient is not utilizing it appropriately. Callus formation is secondary to local pressure and trauma and should improve once the callus is debrided if the customized shoe is fitting appropriately. Consideration for total contact casting was also entertained. However, when seen last week, the patient's foot had significantly changed with 2 new wounds one lateral and one medial in relationship to the suture line and independent from the plantar wound itself. There was localized edema evidence of cellulitis and purulent drainage. The patient had already been on antibiotic therapy and after initial debridement it was recommended that the patient be hospitalized for further treatment complete bedrest and IV antibiotics. Arrangements were made for direct admission with the hospitalist and the patient was admitted. Her original cultures showed strep B and Enterobacter. These were responsive to Levaquin, and the patient was started on this oral antibiotic. When seen, the patient is afebrile, appears relatively comfortable with normal vital signs. Her fasting sugar this morning was over 300. She is on IV Rocephin and our wound care recommendations are as follows. It is imperative that diabetic control be obtained as wound healing will not occur if the patient's blood sugar is greater than 180 at any time. She is to be at strict bedrest. Being out of bed only creates more gravitational dependent edema and local trauma, which is part of the problem of her present situation. She is on IV Rocephin, which will give good coverage. In terms of dressing changes, the original order by the hospitalists for wet-to-dry dressings is contraindicated and is not best medical practice, and not standard of care. This will be discontinued. The wounds are to be cleaned with Vashe wound cleanser for 10 minutes. Drawtex absorbent dressing is to be cut to the appropriate size for the wounds and then covered with an outer OptiLock or similar absorptive dressing. This is to be secured with a Kerlix, avoiding any tape to the skin. Dressing changes should be done on a daily basis or as needed for strike-through drainage. Desitin or zinc cream should be placed on the andreina wound to avoid any potential maceration from wound drainage. MRI to evaluate for deep abscess should be considered along with surgical wound debridement. The patient can be followed in our clinic in the future when she is stabilized and showing improvement. Thank you for this consult. JACOB
--- NOTE | 2019-11-26 12:29 | CR ---
DATE OF CONSULTATION: 11/24/2019 INFECTIOUS DISEASE CONSULTATION Asked to consult for right foot cellulitis with nonhealing ulcers, diabetic foot ulcers. Iliana is a 54-year-old female with a history of morbid obesity, insulin-dependent diabetes with moderate control, HbA1c has been between 8.5 and 9.5. She has had a transmetatarsal amputation of both feet where the right one had not been healing for years. She has had a chronically open wound on the plantar aspect of the foot for which she is followed up by Dr. August. He opened up the wound, the callus, and had debrided it. The patient developed new ulcers over the 5th metatarsal and the medial foot area and culture was positive for group B strep and Enterobacter cloacae. The patient has been started on doxycycline last week with worsening symptoms and therefore was admitted to the hospital. 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 PAST SURGICAL HISTORY: Multiple foot surgeries including a transmetatarsal amputation of both feet. REVIEW OF SYSTEMS: She denies any nausea, vomiting or diarrhea. No fever or chills. No abdominal pain. She has foot pain in her foot. No upper or lower extremity weakness. ALLERGIES: CEFAZOLIN, FLUOXETINE, SUDAFED, and TRAZODONE. MEDICATIONS: Insulin sliding scale, Desitin topically daily, Levemir 40 units subcu twice a day, Lipitor 40 mg by mouth nightly, duloxetine 60 mg by mouth nightly, Percocet one tablet by mouth every 4 hours as needed, ceftriaxone 1 gram IV every 12 hours, amlodipine 5 mg by mouth daily, furosemide 40 mg by mouth daily, losartan 100 mg by mouth daily, multivitamin one tablet by mouth daily. Wound culture from admission has group B strep. Blood cultures, two sets, are negative. Wound culture from 11/15/2019 had Group B strep heavy growth and Enterobacter cloacae resistant to cefazolin and Bactrim. White count 15.3, hemoglobin 10, hematocrit 31.1, platelets 557. ESR 125. Sodium 132, potassium 4.8, chloride 99, bicarb 26, BUN 17, creatinine 0.84, glucose 373, HbA1c 9.5, calcium 9.1, AST 15, ALT 20, alkaline phosphatase 151, CRP 11.1. IMAGING STUDIES: Peripherally inserted central catheter (PICC) line was placed on 11/24/2019. MRI of the right foot showed an abscess 1.2 cm overlying the 4th metatarsal. This was done without contrast. No evidence of osteomyelitis. Diffuse signal in the soft tissues compatible with diffuse edema and skin thickening. On physical exam, she is a pleasant female in no acute distress. Afebrile for the past 24 hours. Her temperature is 97.3, pulse 83, respirations 20, blood pressure 140/68, oxygen saturation (O2 sat) 96% on room air. Heart: Normal S1, S2. No murmurs, rubs or gallops. Lungs are clear. No wheezes, rales or rhonchi. Abdomen: Morbidly obese, soft, nontender. Extremities: +1 pitting edema bilaterally. Bilateral transmetatarsal amputation; the right one has diffuse erythema over the foot, especially on the plantar aspect of the foot and medially there are three ulcers, one overlying the fourth metatarsal measuring 1 x 1 cm with some purulent discharge, another one on the plantar aspect of the foot measuring 3.5 x 3 cm, and the last one is medially along the 1st metatarsal on the plantar aspect of the foot measuring 3.5 x 3.5 cm with tenderness, redness and significant erythema around it. IMPRESSION: Chronic diabetic foot ulcer of the right foot, status post transmetatarsal amputation, now admitted with complicated skin and soft tissue infection and abscess. I am surprised that the MRI does not show osteomyelitis as this wound has been open for so long. Her ESR is quite elevated at 125. The patient has culture positive for group B strep and Enterobacter from 10 days ago, waiting for results of culture on this admission. Continue with current antibiotics with IV Rocephin until final results of cultures are available to me. PLAN: Continue to monitor CBC, CRP. Can obtain x-ray of the right foot. Case will be discussed with Dr. August. Will consult Dr Heath for further debridement MTDD
[2019-11-26 14:00] VITALS: BP 157/61
--- NOTE | 2019-11-26 18:24 | IPN ---
DATE: 11/25/2019 Iliana is feeling well. She has no complaints. No nausea, vomiting or diarrhea. No abdominal pain, fever or chills. She is concerned about the purulent drainage from her foot. She has seen Dr. Alicea in the past for podiatry. There is still purulent discharge from both openings over the fourth metatarsal and the medial aspect of the foot. LABORATORY DATA: White count is 15, hemoglobin 10.1, hematocrit 32, platelets 558. ESR 125. Sodium 134, potassium 4.5, chloride 102, bicarb 25, BUN 19, creatinine 0.77, glucose 248, calcium 9.1. Wound culture was positive for group B strep, Staphylococcus aureus. Blood cultures two sets are no growth after 48 hours. Foot x-ray showed no acute osteomyelitis but they are two metallic clips that had not been seen in the past. PHYSICAL EXAMINATION: Heart: Normal S1-S2. No murmurs. Lungs are clear. No wheezes, rales or rhonchi. Temperature is 96.7, pulse 81, respirations 18, blood pressure 135/64, oxygen saturation 95% on room air. Abdomen: Morbidly obese, soft, nontender. Extremities: Trace edema bilaterally. Bilateral transmetatarsal amputation left transmetatarsal well healed, right has three open ulcers one overlying the fourth metatarsal measuring 1 x 1 cm with purulent discharge expressed, second one on the plantar aspect of the foot over the second and third metatarsal measuring 2.5 cm x 2 cm and the third one medially with purulent discharge surrounding erythema all over the transmetatarsal site. The ulcers all tunnelled, although I am not able to connect them, but there is significant purulent discharge in the medial and lateral ones. IMPRESSION: 1. Cellulitis with foot abscess with group B strep and Staphylococcus aureus. The patient is currently on IV Rocephin. She needs further debridement. Her white count has remained at 15,000. Suggest changing her to IV Zosyn and vancomycin to cover for methicillin-resistant Staphylococcus aureus (MRSA) until results of Staphylococcus aureus susceptibilities are available and Zosyn for anaerobic coverage. 2. Insulin-dependent diabetes poorly controlled with HbA1c of 9.5, glucose today has been better between 181 and 287. Plan : consult Dr. Alicea for irrigation and debridement of the foot. The patient has been placed nothing by mouth. She will be an add on this afternoon for surgery. Discontinue IV Rocephin switched to IV vancomycin and Zosyn until results of final cultures available to cover for MRSA and anaerobes as well MTDD
[2019-11-26] MEDS: ATORVASTATIN 20 MG TAB PO SCH (20:54)
[2019-11-26] MEDS: DULoxetine 30 MG CAP (CYMBALTA) PO SCH (20:54)
[2019-11-26 22:00] VITALS: BP 135/73
[2019-11-26] MEDS ORDERED: MOM 30ML SUSPENSION UDC PO PRN (23:15)
[2019-11-27] MEDS: PIPERACILLIN/TAZOBACTAM SOD 3.375 GM in D5W MINI-BAG PLUS 50 ML IV SCH ×4 (01:38→20:30)
[2019-11-27 05:23] LABS: HEMATOCRIT 30.5 % (36.0-47.0); HEMOGLOBIN 9.9 g/dl (12.0-15.5); MEAN CORPUSCULAR HEMOGLOBIN 28.5 pg (27.0-33.0); MEAN CORPUSCULAR HGB CONC 32.5 g/dl (32.0-36.5); MEAN CORPUSCULAR VOLUME 87.9 fl (80.0-96.0); PLATELET COUNT, AUTOMATED 538 10^3/uL (150-450); RED BLOOD COUNT 3.47 10^6/uL (4.00-5.40); WHITE BLOOD COUNT 13.3 10^3/uL (4.0-10.0)
[2019-11-27 05:48] LABS: BLOOD UREA NITROGEN 18 MG/DL (7-18); CALCIUM LEVEL 8.5 MG/DL (8.5-10.1); CARBON DIOXIDE LEVEL 27 MEQ/L (21-32); CHLORIDE LEVEL 103 MEQ/L (98-107); CREATININE FOR GFR 0.96 MG/DL (0.55-1.30); GLOMERULAR FILTRATION RATE > 60.0 (>51); GLUCOSE, FASTING 171 MG/DL (70-100); POTASSIUM SERUM 4.3 MEQ/L (3.5-5.1); SODIUM LEVEL 136 MEQ/L (136-145); VANCOMYCIN LEVEL TROUGH 17.3 UG/ML (10.0-20.0)
[2019-11-27 06:00] VITALS: BP 134/70
[2019-11-27] MEDS: SODIUM CHLORIDE 0.9% INJ 10 ML SYR IV SCH ×2 (06:03→18:00)
[2019-11-27] MEDS: VANCOMYCIN HCL 1,000 MG, VIAL MATE ADAPTER 1 EACH in D5W 250 ML IV SCH ×2 (06:03→17:37)
[2019-11-27] MEDS: HumaLOG INSULIN (NovoLOG) PER UNIT SC SCH ×4 (08:27→20:46)
[2019-11-27] MEDS: DIAPER RELIEF PASTE (DESITIN) 60GM TOP SCH (09:00)
[2019-11-27] MEDS: LEVEMIR (INSULIN DETEMIR) 1 UNITS/0.01ML SC SCH ×2 (09:17→20:31)
[2019-11-27] MEDS: amLODIPine 5 MG TAB PO SCH (09:18)
[2019-11-27] MEDS: LOSARTAN 50MG TABLET PO SCH (09:18)
[2019-11-27] MEDS: MULTIVITAMINS/MINERALS THERAP 1 TAB PO SCH (09:18)
[2019-11-27] MEDS: FUROSEMIDE 40 MG TAB PO SCH (09:18)
--- NOTE | 2019-11-27 10:43 | IPNPDOC ---
Text Note Date of Service The patient was seen on 11/27/19. NOTE Subjective: Patient seen and examined at bedside. Underwent debridement last night in an attempt to remove foreign objects (3 insulin needles). As per patient, intervention was not successful. She is feeling better this morning. Overnight she noted polyuria, and a recent UTI. No new medical complaints this morning. Objective: VITAL SIGNS: See below General: NAD, anxious HEENT: NC/AT, EOMI Lungs: CTA B/L Heart: +s12s2, RRR Abd: obese, soft, NT, +BS Ext: bandages in place b/l feet ASSESSMENT/PLAN: 54 yo female sent by music specialist for direct admission for non-healing DFU, needing IV ABx. PMHx includes chronic right foot osteomyelitis, and medical non-compliance. #cellulitis/foot abscess - cultures +group B strep/staph aureus - IV zosyn/vanco - foreign objects found in right foot (3 insulin needles reported) - s/p debridement - unable to retrieve objects - no MRI evidence of osteo - continue Abx as per ID - assistance appreciated - follow as per podiatry - assistance appreciated - wound care c/s - Dr. August appreciated #UTI - admits to polyuria with +UA - UCx shows yeast like organism #IDDM -sliding scale #diabetic neuropathy #HTN #DLP #BIPOLAR DISORDER/depression - duloxetine #MORBID OBESITY - complicates medical care #DVT prophylaxis VS,Fishbone, I+O VS, Fishbone, I+O Laboratory Tests 11/27/19 05:12 Vital Signs Date Time Temp Pulse Resp B/P (MAP) Pulse Ox O2 Delivery O2 Flow Rate FiO2 11/27/19 09:18 132/68 11/27/19 06:00 97.8 82 16 96 Room Air 11/25/19 18:02 2 I&O- Last 24 Hours up to 6 AM 11/27/19 05:59 Intake Total 2580 ml Output Total 2600 ml Balance -20 ml AZUCENA BOYD MD November 27, 2019 10:43
[2019-11-27] MEDS ORDERED: DOCUSATE SODIUM 100 MG CAP PO PRN (11:15)
[2019-11-27] MEDS ORDERED: SENNA 8.6 MG TAB (SENOKOT) PO PRN (11:15)
[2019-11-27] MEDS: PERCOCET 5MG/325MG TAB PO PRN ×2 (11:50→23:01)
[2019-11-27 14:00] VITALS: BP 148/88
[2019-11-27] MEDS: SODIUM CHLORIDE 0.9% INJ 10 ML SYR IV PRN (15:26)
[2019-11-27] MEDS: DULoxetine 30 MG CAP (CYMBALTA) PO SCH (20:31)
[2019-11-27] MEDS: ATORVASTATIN 20 MG TAB PO SCH (20:31)
[2019-11-27 22:00] VITALS: BP 138/66
[2019-11-28] MEDS: PIPERACILLIN/TAZOBACTAM SOD 3.375 GM in D5W MINI-BAG PLUS 50 ML IV SCH ×4 (01:33→20:14)
[2019-11-28] MEDS ORDERED: IBUPROFEN 400 MG TAB PO ONE (01:45)
[2019-11-28 06:00] VITALS: BP 146/64
[2019-11-28] MEDS: VANCOMYCIN HCL 1,000 MG, VIAL MATE ADAPTER 1 EACH in D5W 250 ML IV SCH (06:05)
[2019-11-28] MEDS: SODIUM CHLORIDE 0.9% INJ 10 ML SYR IV SCH ×2 (06:07→18:00)
[2019-11-28 06:29] LABS: HEMATOCRIT 29.4 % (36.0-47.0); HEMOGLOBIN 9.2 g/dl (12.0-15.5); MEAN CORPUSCULAR HGB CONC 31.3 g/dl (32.0-36.5); MEAN CORPUSCULAR VOLUME 89.4 fl (80.0-96.0); PLATELET COUNT, AUTOMATED 485 10^3/uL (150-450); RED BLOOD COUNT 3.29 10^6/uL (4.00-5.40); WHITE BLOOD COUNT 12.4 10^3/uL (4.0-10.0)
[2019-11-28 06:54] LABS: BLOOD UREA NITROGEN 16 MG/DL (7-18); CALCIUM LEVEL 8.6 MG/DL (8.5-10.1); CARBON DIOXIDE LEVEL 24 MEQ/L (21-32); CHLORIDE LEVEL 105 MEQ/L (98-107); CREATININE FOR GFR 0.95 MG/DL (0.55-1.30); GLOMERULAR FILTRATION RATE > 60.0 (>51); GLUCOSE, FASTING 222 MG/DL (70-100); POTASSIUM SERUM 4.1 MEQ/L (3.5-5.1); SODIUM LEVEL 135 MEQ/L (136-145)
[2019-11-28] MEDS: LOSARTAN 50MG TABLET PO SCH (08:39)
[2019-11-28] MEDS: amLODIPine 5 MG TAB PO SCH (08:40)
[2019-11-28] MEDS: FUROSEMIDE 40 MG TAB PO SCH (08:40)
[2019-11-28] MEDS: MULTIVITAMINS/MINERALS THERAP 1 TAB PO SCH (08:40)
[2019-11-28] MEDS: PERCOCET 5MG/325MG TAB PO PRN (08:40)
[2019-11-28] MEDS: LEVEMIR (INSULIN DETEMIR) 1 UNITS/0.01ML SC SCH ×2 (08:41→21:01)
[2019-11-28] MEDS: SODIUM CHLORIDE 0.9% INJ 10 ML SYR IV PRN ×3 (08:41→21:42)
[2019-11-28] MEDS: HumaLOG INSULIN (NovoLOG) PER UNIT SC SCH ×4 (08:42→21:00)
[2019-11-28] MEDS: DIAPER RELIEF PASTE (DESITIN) 60GM TOP SCH (08:42)
--- NOTE | 2019-11-28 11:39 | IPNPDOC ---
Text Note Date of Service The patient was seen on 11/28/19. NOTE Subjective: Patient seen and examined at bedside. No acute overnight events reported. States her polyuria has resolved. In good spirits, no new medical complaints. Objective: VITAL SIGNS: See below General: NAD, anxious HEENT: NC/AT, EOMI Lungs: CTA B/L Heart: +s12s2, RRR Abd: obese, soft, NT, +BS Ext: bandages in place b/l feet ASSESSMENT/PLAN: 54 yo female sent by technology integration specialist for direct admission for non-healing DFU, needing IV ABx. PMHx includes chronic right foot osteomyelitis, and medical non-compliance. #cellulitis/foot abscess - cultures +group B strep/staph aureus - IV zosyn/vanco day #4 - foreign objects found in right foot (3 insulin needles reported) - s/p debridement - unable to retrieve objects - no MRI evidence of osteo - continue Abx as per ID - assistance appreciated - follow as per podiatry - assistance appreciated - wound care c/s - Dr. August appreciated #UTI - symptoms have resolved - UCx shows yeast like organism #IDDM -sliding scale #diabetic neuropathy #HTN #DLP #BIPOLAR DISORDER/depression - duloxetine #MORBID OBESITY - complicates medical care #DVT prophylaxis Dispo: ID/podiatry follow up, IV antibiotics VS,Fishbone, I+O VS, Fishbone, I+O Laboratory Tests 11/28/19 06:02 Vital Signs Date Time Temp Pulse Resp B/P (MAP) Pulse Ox O2 Delivery O2 Flow Rate FiO2 11/28/19 09:20 18 11/28/19 08:40 Room Air 11/28/19 08:40 76 146/64 11/28/19 06:00 97.5 95 11/25/19 18:02 2 I&O- Last 24 Hours up to 6 AM 11/28/19 06:00 Intake Total 3125 ml Output Total 2954 ml Balance 171 ml AZUCENA BOYD MD Nov 28, 2019 11:39
[2019-11-28 14:00] VITALS: BP 158/76
[2019-11-28] MEDS: ATORVASTATIN 20 MG TAB PO SCH (21:00)
[2019-11-28] MEDS: DULoxetine 30 MG CAP (CYMBALTA) PO SCH (21:00)
[2019-11-28 22:00] VITALS: BP 139/71
[2019-11-29] MEDS: PIPERACILLIN/TAZOBACTAM SOD 3.375 GM in D5W MINI-BAG PLUS 50 ML IV SCH ×2 (02:39→08:44)
[2019-11-29] MEDS: SODIUM CHLORIDE 0.9% INJ 10 ML SYR IV SCH ×2 (05:04→18:19)
[2019-11-29 06:00] VITALS: BP 136/76
[2019-11-29 06:01] LABS: HEMATOCRIT 30.2 % (36.0-47.0); HEMOGLOBIN 9.4 g/dl (12.0-15.5); MEAN CORPUSCULAR HEMOGLOBIN 27.2 pg (27.0-33.0); MEAN CORPUSCULAR HGB CONC 31.1 g/dl (32.0-36.5); MEAN CORPUSCULAR VOLUME 87.5 fl (80.0-96.0); PLATELET COUNT, AUTOMATED 515 10^3/uL (150-450); RED BLOOD COUNT 3.45 10^6/uL (4.00-5.40); WHITE BLOOD COUNT 13.3 10^3/uL (4.0-10.0)
[2019-11-29 06:26] LABS: BLOOD UREA NITROGEN 15 MG/DL (7-18); C REACTIVE PROTEIN QUANTITATIV 2.29 MG/DL (0.00-0.30); CALCIUM LEVEL 9.3 MG/DL (8.5-10.1); CARBON DIOXIDE LEVEL 28 MEQ/L (21-32); CHLORIDE LEVEL 103 MEQ/L (98-107); CREATININE FOR GFR 0.94 MG/DL (0.55-1.30); GLOMERULAR FILTRATION RATE > 60.0 (>51); GLUCOSE, FASTING 209 MG/DL (70-100); SODIUM LEVEL 136 MEQ/L (136-145)
[2019-11-29] MEDS: MULTIVITAMINS/MINERALS THERAP 1 TAB PO SCH (08:45)
[2019-11-29] MEDS: LEVEMIR (INSULIN DETEMIR) 1 UNITS/0.01ML SC SCH ×2 (08:45→22:18)
[2019-11-29] MEDS: FUROSEMIDE 40 MG TAB PO SCH (08:45)
[2019-11-29] MEDS: HumaLOG INSULIN (NovoLOG) PER UNIT SC SCH ×4 (08:45→22:17)
[2019-11-29] MEDS: amLODIPine 5 MG TAB PO SCH (08:47)
[2019-11-29] MEDS: LOSARTAN 50MG TABLET PO SCH (08:47)
[2019-11-29] MEDS ORDERED: AMOX875T2 PO (11:02)
--- NOTE | 2019-11-29 12:43 | IPNPDOC ---
Text Note Date of Service The patient was seen on 11/29/19. NOTE Subjective: Patient seen and examined at bedside. No acute overnight events reported. In good spirits, no new medical complaints. Objective: VITAL SIGNS: See below General: NAD, anxious HEENT: NC/AT, EOMI Lungs: CTA B/L Heart: +s12s2, RRR Abd: obese, soft, NT, +BS Ext: bandages in place right foot ASSESSMENT/PLAN: 54 yo female sent by crime victim specialist for direct admission for non-healing DFU, needing IV ABx. PMHx includes chronic right foot osteomyelitis, and medical non-compliance. #cellulitis/foot abscess - cultures +group B strep/staph aureus - completed 5 days vanc/zosyn - transitioned to Augmentin - foreign objects found in right foot (3 insulin needles reported) - s/p debridement - unable to retrieve objects - no MRI evidence of osteo - continue Abx as per ID - assistance appreciated - o/p follow up - follow as per podiatry - assistance appreciated - wound care c/s - Dr. August appreciated - recommended surgical c/s for retrieval of foreign objects, perhaps using fluoroscopy #UTI - symptoms have resolved - UCx shows yeast like organism #IDDM -sliding scale #diabetic neuropathy #HTN #DLP #BIPOLAR DISORDER/depression - duloxetine #MORBID OBESITY - complicates medical care #medical non-compliance #DVT prophylaxis Dispo: surgical c/s pending VS,Fishbone, I+O VS, Fishbone, I+O Laboratory Tests 11/29/19 05:17 Vital Signs Date Time Temp Pulse Resp B/P (MAP) Pulse Ox O2 Delivery O2 Flow Rate FiO2 11/29/19 08:47 164/81 11/29/19 08:47 80 11/29/19 06:00 97.6 16 97 Room Air 11/25/19 18:02 2 I&O- Last 24 Hours up to 6 AM 11/29/19 06:00 Intake Total 1580 ml Output Total 2400 ml Balance -820 ml AZUCENA BOYD MD Nov 29, 2019 12:42
--- NOTE | 2019-11-29 13:35 | IPN ---
DATE: 11/28/2019 Iliana is doing well. She has no complaints. She did not want me to change her dressing as it was just redressed by the nurses, it had a lot of drainage. It was also seen by Dr. Alicea today. She has no fever or chills. She did show me a picture on her phone, the wound is completely open along the metatarsal heads. On physical exam, temperature is 97.7, pulse 74, respirations 17, blood pressure 158/76, and O2 sat 97% on room air. Heart: Normal S1, S2. No murmurs, rubs or gallops. Lungs are clear. No wheezes, rales or rhonchi. Abdomen: Morbidly obese, soft, nontender. Extremities: +1 pitting edema bilaterally. Bilateral transmetatarsal amputation, left is healed, right has a dressing. Wound is open underneath the incision line where all the ulcers were, they are now all open and draining. There is on the picture no purulence noted. Wound culture had Group B strep and MSSA. MEDICATIONS: - Zosyn 3.375 grams IV every 6 hours - vancomycin was discontinued today, her last dose was 11/28/2019 at 6:05 LABORATORY DATA: CRP 11.1, sodium 135, potassium 4.1, chloride 105, bicarb 24, BUN 16, creatinine 0.95, glucose 222, white count 12.4 down from 15.3, hemoglobin 9.2, hematocrit 29.4, platelets 45. IMPRESSION: Abscess of the right foot with culture positive for Group B strep and MSSA. On IV Zosyn and vancomycin. Vancomycin was discontinued earlier today. Blood cultures were negative. The patient had an I/D of the foot. 2. Insulin-dependent diabetes with moderate control. HbA1c of 12. Glucoses have been elevated, ranging between 230 and 330. The patient states she usually takes Trulicity at home which has not been given to her in the hospital. PLAN: Discontinue IV vancomycin. Continue with IV Zosyn. We will examine the foot tomorrow and decide on further antibiotic management. Repeat CBC and CRP in the morning.
[2019-11-29 14:00] VITALS: BP 123/72
[2019-11-29] MEDS: DIAPER RELIEF PASTE (DESITIN) 60GM TOP SCH (15:40)
[2019-11-29] MEDS ORDERED: FLUCONAZOLE 100 MG TAB PO ONE (16:45)
[2019-11-29 22:00] VITALS: BP 124/72
[2019-11-29] MEDS: DULoxetine 30 MG CAP (CYMBALTA) PO SCH (22:17)
[2019-11-29] MEDS: ATORVASTATIN 20 MG TAB PO SCH (22:17)
[2019-11-29] MEDS: AUGMENTIN 875 MG TAB PO SCH (22:17)
[2019-11-29] MEDS: PERCOCET 5MG/325MG TAB PO PRN (22:18)
--- NOTE | 2019-11-30 02:39 | IPN ---
DATE: 11/29/2019 Iliana is doing well. She has no complaints except for some vaginal itching and discharge. She has no fever or chills. No pain in her foot. Her dressing was changed this afternoon by myself and the nurse. Wound is open from underneath the metatarsal incision site. It is diagonal from the 5th metatarsal head down to the midfoot. There is minimal purulent discharge at the medial aspect of the wound. This redness has markedly decreased. There is no necrotic tissue. There is a blister that is dried out. Temperature is 97.7, pulse 79, respirations 16, blood pressure 123/72, oxygen saturation 97% on room air. Heart: Normal S1, S2. No murmurs, rubs, or gallops. Lungs: Are clear. No wheezes, rales, or rhonchi. Abdomen: Morbidly obese. Soft, nontender. Extremities: +1 pitting edema bilaterally. Transmetatarsal amputation bilaterally. Left foot well healed scar. Right foot healed incision of transmetatarsal amputation, but she has a new incision diagonal from the 5th metatarsal down to the medial aspect of the foot where there is some purulent discharge. IMPRESSION: 1. Complicated skin and soft tissue infection. On intravenous (IV) Zosyn. Doing better. Patient was switched to oral Augmentin 875 mg twice a day. Patient will need at least 2 weeks of antibiotics. 2. Marley vaginitis. The patient was given a dose of fluconazole 200 mg by mouth times one today. 3. Insulin-dependent diabetes. Poorly controlled with glucose between 250 and 320. 4. Foreign body in the foot with insulin needle. Dr. Loaiza was consulted. PLAN: Agree with switch to Augmentin 875 mg twice a day for methicillin-sensitive Staphylococcus aureus (MSSA) and Group B streptococcus. To followup in my office in 2 weeks. She will followup with Dr. August as well, who recommended surgical consultation regarding foreign body.
[2019-11-30 05:58] LABS: HEMATOCRIT 32.4 % (36.0-47.0); HEMOGLOBIN 10.5 g/dl (12.0-15.5); MEAN CORPUSCULAR HEMOGLOBIN 28.2 pg (27.0-33.0); MEAN CORPUSCULAR HGB CONC 32.4 g/dl (32.0-36.5); MEAN CORPUSCULAR VOLUME 86.9 fl (80.0-96.0); PLATELET COUNT, AUTOMATED 534 10^3/uL (150-450); RED BLOOD COUNT 3.73 10^6/uL (4.00-5.40); WHITE BLOOD COUNT 13.9 10^3/uL (4.0-10.0)
[2019-11-30 06:00] VITALS: BP 148/58
[2019-11-30 06:17] LABS: BLOOD UREA NITROGEN 14 MG/DL (7-18); CALCIUM LEVEL 9.3 MG/DL (8.5-10.1); CARBON DIOXIDE LEVEL 29 MEQ/L (21-32); CHLORIDE LEVEL 101 MEQ/L (98-107); GLOMERULAR FILTRATION RATE > 60.0 (>51); GLUCOSE, FASTING 169 MG/DL (70-100); POTASSIUM SERUM 4.1 MEQ/L (3.5-5.1); SODIUM LEVEL 138 MEQ/L (136-145)
[2019-11-30] MEDS: SODIUM CHLORIDE 0.9% INJ 10 ML SYR IV SCH ×2 (06:45→18:41)
[2019-11-30] MEDS: SODIUM CHLORIDE 0.9% INJ 10 ML SYR IV PRN (06:46)
[2019-11-30] MEDS: HumaLOG INSULIN (NovoLOG) PER UNIT SC SCH ×4 (07:30→20:48)
[2019-11-30] MEDS: LEVEMIR (INSULIN DETEMIR) 1 UNITS/0.01ML SC SCH ×2 (09:00→20:48)
[2019-11-30] MEDS: LOSARTAN 50MG TABLET PO SCH (09:19)
[2019-11-30] MEDS: amLODIPine 5 MG TAB PO SCH (09:19)
[2019-11-30] MEDS: MULTIVITAMINS/MINERALS THERAP 1 TAB PO SCH (09:19)
[2019-11-30] MEDS: DIAPER RELIEF PASTE (DESITIN) 60GM TOP SCH (09:20)
[2019-11-30] MEDS: AUGMENTIN 875 MG TAB PO SCH ×2 (09:20→20:47)
[2019-11-30] MEDS: FUROSEMIDE 40 MG TAB PO SCH (09:20)
--- NOTE | 2019-11-30 11:06 | IPNPDOC ---
Text Note Date of Service The patient was seen on 11/30/19. NOTE Subjective: Patient seen and examined at bedside. No acute overnight events reported. In good spirits, no new medical complaints. Objective: VITAL SIGNS: See below General: NAD, anxious HEENT: NC/AT, EOMI Lungs: CTA B/L Heart: +s12s2, RRR Abd: obese, soft, NT, +BS Ext: bandages in place right foot ASSESSMENT/PLAN: 54 yo female sent by bioinformatics specialist for direct admission for non-healing DFU, needing IV ABx. PMHx includes chronic right foot osteomyelitis, and medical non-compliance. #cellulitis/foot abscess - cultures +group B strep/staph aureus - completed 5 days vanc/zosyn - transitioned to Augmentin - day #2 - foreign objects found in right foot (3 insulin needles reported) - s/p debridement - unable to retrieve objects - no MRI evidence of osteo - continue Abx as per ID - assistance appreciated - o/p follow up - follow as per podiatry - assistance appreciated - wound care c/s - Dr. Mcmahan appreciated - recommended surgical c/s for retrieval of foreign objects, perhaps using fluoroscopy - d/w surgery - no further intervention #UTI - symptoms have resolved - UCx shows yeast like organism #IDDM -sliding scale #diabetic neuropathy #HTN #DLP #BIPOLAR DISORDER/depression - duloxetine #MORBID OBESITY - complicates medical care #medical non-compliance #DVT prophylaxis Dispo: to discuss further with vascular surgery and dr mcmahan, if no further intervention will anticipate discharge tomorrow VS,Fishbone, I+O VS, Fishbone, I+O Laboratory Tests 11/30/19 05:17 Vital Signs Date Time Temp Pulse Resp B/P (MAP) Pulse Ox O2 Delivery O2 Flow Rate FiO2 11/30/19 09:19 148/58 11/30/19 06:00 98.0 75 16 97 Room Air 11/25/19 18:02 2 I&O- Last 24 Hours up to 6 AM 11/30/19 06:00 Intake Total 1075 ml Output Total 1100 ml Balance -25 ml AZUCENA BOYD MD Nov 30, 2019 11:06
[2019-11-30] MEDS: PERCOCET 5MG/325MG TAB PO PRN ×2 (13:07→20:48)
[2019-11-30 14:00] VITALS: BP 152/64
--- NOTE | 2019-11-30 14:31 | CR.PDOC ---
General Date of Consultation: Nov 30, [address] Canas HPI: 54 year old F with a past medical history significant for nonhealing wound right foot who was sent for admission by Dr. August for non-healing right plantar diabetic foot ulcer. The patient was found to have foreign body in the right foot and vascular surgery was consulted. 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 Tubal ligation Cholecystectomy SOCHX: Nonsmoker FAMHX: Mother , cancer Father , hypertension, CAD. Siblings: Mother with history of schizophrenia, sister with history of diabetes. ROS: As noted in HPI, otherwise 11pt ROS of systems reviewed and unremarkable. PE: GEN: 54 yo F, Alert and oriented x 3. HEENT: Normocephalic, atraumatic. Moist mucous membranes. CHEST: Regular rate and rhythm, +S1, +S2 LUNGS: Clear to auscultation bilaterally. ABD: Round, soft, non-tender, non-distended. Ext: The patient has a large open wound on the plantar surface the right foot that extends obliquely from medial to lateral across the entire bottom of the foot. There is some granulation tissue at the base, some fibrinous exudate, some drainage. No purulence is noted on this exam, but the nurse that she just change the dressing an hour ago. She said at that time, there was significant purulent drainage on the bandage. The wound was redressed with loose packing in the open area covered with Kerlix and Coban. Distal perfusion intact. TMA incision is well-healed. NEURO: Alert and oriented x 3. No focal deficits appreciated. MRI FOOT: 11/24/19 TECHNIQUE: Multiple sequences obtained in the axial, coronal, and sagittal planes without the use of intravenous contrast. The patient has had prior amputation at the level of the shafts of the metatarsals. Bone marrow signal is homogeneous and unremarkable. There is no bone marrow edema or occult fracture. There is no MR evidence of osteomyelitis. Diffuse ill-defined high signal in the soft tissues is compatible with diffuse edema. There is skin thickening and apparent soft tissue inflammation and cellulitis in the distal anterior soft tissues of the remaining foot. There is a small pocket of fluid just distal to the remaining portion of the 4th metatarsal. This measures 1.2 cm in diameter. I cannot exclude a small abscess. No other discrete fluid collection is seen. IMPRESSION: No MR evidence of occult fracture or osteomyelitis. Diffuse soft tissue edema. Cellulitis in the soft tissues of the forefoot. Small pocket of fluid 1.2 cm in diameter just distal to the remaining portion of the 4th metatarsal may represent a small abscess. Electronically Signed by Keith García MD 11/24/2019 12:39 P XR Foot HISTORY: Evaluate for osteomyelitis. COMPARISON STUDY: March 09, 2018. FINDINGS: There is soft-tissue swelling over the forefoot stump. The patient is status post transmetatarsal amputation of all five digits. There is overlying dressing artifact. No soft tissue gas is seen. No acute bony erosive changes seen. However, there are two metallic foreign bodies projecting in the volar soft tissues of the midfoot, one laterally and one at the level of the second tarsometatarsal articulation. These were not apparent on the March 09, 2018 prior study. They are thin linear metallic densities suggesting pin or needle fragments. There is Achilles and plantar calcaneal spurring. IMPRESSION: No acute bony erosive change or soft tissue gas is seen. Status post transmetatarsal amputation of all five digits. There are two metallic foreign bodies projecting in the plantar soft tissues of the midfoot which were not apparent on March 09, 2018 as described above. Electronically Signed by Kit Sandhu MD 11/25/2019 09:12 A A&P: 1. Status post TMA/chronic right foot wound/foreign body right foot. X-ray right foot indicates two metallic foreign bodies projecting in the volar soft tissues of the midfoot, one laterally and one at the level of the second tarsometatarsal articulation. These are reported to be insulin needles. Patient follows as an outpatient with wound care, Dr. August for management of her chronic right foot wounds. Status post incision and drainage of right plantar abscess as per podiatry 11/28/19. Antibiotics as per Infectious disease, Dr Thomas. The patient is reviewed and examined as per Dr. Canas. Plan is to proceed with right foot foreign body removal with ultrasound and fluoroscopy 12/01/19. Nothing by mouth after midnight tonight. The procedure, risks, benefits and alternatives are reviewed with the patient. Informed consent and transfusion consent is obtained place of the chart. We discussed with the patient that we may not be able to remove the foreign bodies however we think it is worth one more try. Vital Signs/I&O Vital Signs Date Time Temp Pulse Resp B/P (MAP) Pulse Ox O2 Delivery O2 Flow Rate FiO2 11/30/19 13:07 16 Room Air 11/30/19 09:19 148/58 11/30/19 06:00 98.0 75 97 11/25/19 18:02 2 I&O- Last 24 Hours up to 6 AM 11/30/19 06:00 Intake Total 1075 ml Output Total 1100 ml Balance -25 ml Laboratory Data Labs 24H Laboratory Tests 2 11/29/19 16:23: Bedside Glucose (Misc Panel) 218H 11/29/19 20:12: Bedside Glucose (Misc Panel) 236H 11/30/19 05:17: Nucleated Red Blood Cells % (auto) 0.1H, Anion Gap 8, Glomerular Filtration Rate > 60.0, Calcium Level 9.3 11/30/19 11:40: Bedside Glucose (Misc Panel) 346H CBC/BMP Laboratory Tests 11/30/19 05:17 Microbiology Microbiology 11/26/19 Urine Culture - Final, Complete Yeast Like Organism 11/23/19 Gram Stain - Final, Complete 11/23/19 Wound Culture - Final, Complete Strep Agalactiae Group B Staphylococcus Aureus 11/23/19 Blood Culture - Final, Complete NO GROWTH AFTER 5 DAYS 11/23/19 Blood Culture - Final, Complete NO GROWTH AFTER 5 DAYS Allergies Coded Allergies: cefazolin (Verified Allergy, Intermediate, hives, 11/23/19) HAS HAD CEFTRIAXONE IN THE PAST fluoxetine (Verified Allergy, Intermediate, hives, 11/23/19) pseudoephedrine (Verified Allergy, Intermediate, hives, 11/23/19) trazodone (Verified Allergy, Intermediate, hives, 11/23/19) Home Medications Scheduled Amlodipine Besylate (Amlodipine Besylate) 5 Mg Tablet, 5 MG PO DAILY, (Reported) Amoxicillin/Potassium Clav (Amox-Clav 875-125 mg Tablet) 1 Each Tablet, 875 MG PO BID, #30 Atorvastatin Calcium (Atorvastatin Calcium) 40 Mg Tab, 40 MG PO QHS, (Reported) Dulaglutide (Trulicity) 1.5 Mg/0.5 Ml Pen.injctr, 1.5 MG SC QWEEK, (Reported) SATURDAYS Duloxetine HCl (Duloxetine HCl) 60 Mg Capsule.dr, 60 MG PO QHS, (Reported) Furosemide (Furosemide) 40 Mg Tablet, 40 MG PO DAILY, (Reported) Insulin Glargine,Hum.rec.anlog (Basaglar Kwikpen U-100) 100 Unit/1 Ml Insuln.pen, 55 UNIT SC BID, (Reported) Losartan Potassium (Losartan Potassium) 50 Mg Tab, 100 MG PO DAILY, (Reported) Metformin HCl (Metformin HCl) 1,000 Mg Tab, 1,000 MG PO BID, (Reported) Multivitamins (Thera M Plus Tablet) 1 Tab Tab, 1 TAB PO DAILY, (Reported) Scheduled PRN Acetaminophen/Diphenhydramine (Acetaminophen Pm Caplet) 1 Each Tablet, 2 TAB PO QHS PRN for PAIN, (Reported) Ibuprofen (Ibuprofen) 600 Mg Tablet, 600 MG PO Q6H PRN for PAIN, (Reported) with food Shauna Medina Nov 30, 2019 14:31 JERRY CANAS MD Nov 30, 2019 16:19
[2019-11-30] MEDS: ATORVASTATIN 20 MG TAB PO SCH (20:47)
[2019-11-30] MEDS: DULoxetine 30 MG CAP (CYMBALTA) PO SCH (20:47)
[2019-11-30 22:00] VITALS: BP 136/61
[2019-12-01] VITALS (9 sets, daily range): BP systolic 121–165; BP diastolic 53–80
[2019-12-01] MEDS: SODIUM CHLORIDE 0.9% INJ 10 ML SYR IV SCH ×2 (06:29→18:03)
[2019-12-01] MEDS: SODIUM CHLORIDE 0.9% INJ 10 ML SYR IV PRN (06:30)
--- NOTE | 2019-12-01 07:28 | CR ---
DATE OF CONSULTATION: 11/29/2019 REASON FOR CONSULTATION: Foreign bodies of right foot. HISTORY OF PRESENT ILLNESS: The patient is a pleasant 54-year-old woman who suffers from diabetes mellitus. She has had multiple prior procedures for foot infections on both feet. These have included a number of individual toe amputations, but at present she has effectively bilateral transmetatarsal amputations. She has been seen at a wound care center in [place] and more recently has been following in the wound care center in [place] with Dr. August. She has had a nonhealing wound on the plantar aspect of the right foot and has been followed. She apparently was found to have a wound that was more concerning and she was referred by the imaging specialist to the hospitalist for admission and treatment. She was seen in consultation by Dr. Alicea who has also seen her recently and he opened her foot and debrided what was apparently an abscess in the plantar aspect of the foot. She had undergone evaluation with an MRI and subsequently had an x-ray of her right foot and this identified two very thin metallic foreign bodies suggestive of insulin syringe needles imbedded in the soft tissues of the right foot. I am now consulted to evaluate the patient regarding possible removal of these foreign bodies. MEDICAL HISTORY: Significant for insulin-requiring diabetes mellitus. She has diabetic neuropathy with a chronic wound on the right foot and a history of multiple prior procedures. She has hypertension. She suffers from bipolar disorder and morbid obesity. SURGICAL HISTORY: Significant for her multiple toe and foot surgeries. MEDICAL ALLERGIES: - CEPHAZOLIN - FLUOXETINE - PSEUDOEPHEDRINE - TRAZODONE MEDICATIONS: Are as listed in the medical record. FAMILY HISTORY: Noncontributory. REVIEW OF SYSTEMS: As noted by the admitting hospitalist. PHYSICAL EXAMINATION: Reveals a pleasant, moderately to morbidly obese woman sitting quietly in the hospital bed. She is alert and oriented. She has a dressing on the right foot consisting of some gauze held in place with Coban. She has evidence of a prior transmetatarsal amputation on the left. It is clear that the toes are absent on the right. Rather than remove the dressing, the patient showed me photos on her phone of her wound within the last day. She clearly has a large open wound going across the distal plantar aspect of the foot. The wound overall looks fairly clean without any evident necrotic tissue. LABORATORY STUDIES: Show a white count of 13,000 with hemoglobin of 9, hematocrit of 30 and a platelet count of 515,000. Chemistry profile shows normal electrolytes with a BUN of 15, creatinine 0.9 and a glucose of 209. C-reactive protein was 2.3 this morning compared to 11.1 on November 22. IMAGING: Included a foot MRI from November 22. This revealed, according to the radiologist, some soft tissue swelling. This suggested a pocket of fluid just distal to the remaining portion of the fourth metatarsal. There was no MR evidence of occult fracture or osteomyelitis. She had a foot x-ray from November 24 including a two-view imaging of the right foot. This showed two thin metallic foreign bodies projecting in the tissues of the plantar aspect of the foot. These apparently were not noted on a prior study in February 2018. One is in the lateral aspect of the foot just proximal to the base of the fifth metatarsal. The second is overlying the region of the base of the second metatarsal. Both of these are clearly on the plantar aspect of the foot. In looking at the MRI imaging, there do appear to be areas of distortion of the MRI in these two regions as well. IMPRESSION: The patient has two very thin metallic foreign bodies in the plantar aspect of the right foot. These would be consistent with fine insulin injection needles broken in the foot. The patient has no recollection of having been injured or having stepped on a needle in these areas. Of note, she apparently has not had any sign of infection in the lateral aspect of the foot. The more medial foreign body is likely in the plantar tissues of the flap overlying her current wound. Dr. Saldana reports that he had spoken with Dr. Alicea who had performed the foot debridement who was not interested according to his report anyway of trying to extract these two small foreign bodies and he requests my evaluation. RECOMMENDATIONS: At this point, I do not see any indication to proceed with an attempt at removal of these foreign bodies. I suspect that these will not have any significant adverse effect on her wound healing. I think trying to remove the more proximal lateral foreign body near the base of the fifth metatarsal is likely to just create a new open wound that could lead to further breakdown. Removal of these would be possible only if they can be adequately localized using fluoroscopy and I am not convinced that this would be possible. Having seen several diabetic patients with very similar foreign bodies in their feet as well as multiple individuals who have suffered injuries with retained foreign bodies that caused no lasting problem, I would not recommend trying to remove these.
[2019-12-01 08:05] LABS: BASO # 0.1 10^3/uL (0.0-0.2); BASO % 0.8 % (0.0-1.0); EOS # 0.4 10^3/uL (0.0-0.5); EOS % 2.9 % (0.0-3.0); HEMATOCRIT 32.1 % (36.0-47.0); HEMOGLOBIN 10.2 g/dl (12.0-15.5); LYMPH # 3.6 10^3/uL (1.5-5.0); LYMPH % 30.4 % (24.0-44.0); MEAN CORPUSCULAR HEMOGLOBIN 27.6 pg (27.0-33.0); MEAN CORPUSCULAR HGB CONC 31.8 g/dl (32.0-36.5); MEAN CORPUSCULAR VOLUME 86.8 fl (80.0-96.0); MONO # 0.7 10^3/uL (0.0-0.8); NEUTROPHILS # 6.9 10^3/uL (1.5-8.5); NEUTROPHILS % 57.9 % (36.0-66.0); PLATELET COUNT, AUTOMATED 480 10^3/uL (150-450); WHITE BLOOD COUNT 11.9 10^3/uL (4.0-10.0)
[2019-12-01] MEDS ORDERED: MIDAZOLAM INJ 2MG/2ML VIAL (J2250 PER 1MG) As Ordered ONE (08:35)
[2019-12-01] MEDS ORDERED: fentaNYL 100 MCG/2 ML INJECTION (J3010) As Ordered ONE (08:35)
[2019-12-01] MEDS ORDERED: ONDANSETRON 4MG/2ML VIAL As Ordered ONE (08:35)
[2019-12-01] MEDS ORDERED: LIDOCAINE 2% 100MG/5ML SDV (FOR ANES.) As Ordered ONE (08:36)
[2019-12-01] MEDS ORDERED: propofoL 200 MG/20 ML VIAL As Ordered ONE (08:36)
[2019-12-01 08:40] LABS: ALBUMIN 2.3 GM/DL (3.2-5.2); ALT/SGPT 29 U/L (12-78); BILIRUBIN,TOTAL 0.2 MG/DL (0.2-1.0); BLOOD UREA NITROGEN 17 MG/DL (7-18); C REACTIVE PROTEIN QUANTITATIV 1.43 MG/DL (0.00-0.30); CALCIUM LEVEL 8.9 MG/DL (8.5-10.1); CARBON DIOXIDE LEVEL 26 MEQ/L (21-32); CHLORIDE LEVEL 101 MEQ/L (98-107); CREATININE FOR GFR 0.87 MG/DL (0.55-1.30); GLOMERULAR FILTRATION RATE > 60.0 (>51); GLUCOSE, FASTING 243 MG/DL (70-100); POTASSIUM SERUM 4.3 MEQ/L (3.5-5.1); SODIUM LEVEL 137 MEQ/L (136-145); TOTAL PROTEIN 6.7 GM/DL (6.4-8.2)
[2019-12-01] MEDS ORDERED: HEPARIN SOD (PORCINE) 5000UNITS/ML VIAL (J1644 PER 1000UNITS) As Ordered ONE (08:54)
[2019-12-01] MEDS: LOSARTAN 50MG TABLET PO SCH (09:03)
[2019-12-01] MEDS: AUGMENTIN 875 MG TAB PO SCH (09:03)
[2019-12-01] MEDS: amLODIPine 5 MG TAB PO SCH (09:03)
[2019-12-01] MEDS: MULTIVITAMINS/MINERALS THERAP 1 TAB PO SCH (09:03)
[2019-12-01] MEDS: LEVEMIR (INSULIN DETEMIR) 1 UNITS/0.01ML SC SCH ×2 (09:04→20:42)
[2019-12-01] MEDS: HumaLOG INSULIN (NovoLOG) PER UNIT SC SCH ×4 (09:04→20:41)
[2019-12-01] MEDS: FUROSEMIDE 40 MG TAB PO SCH (09:04)
[2019-12-01] MEDS: DIAPER RELIEF PASTE (DESITIN) 60GM TOP SCH (09:07)
[2019-12-01] MEDS ORDERED: METOCLOPRAMIDE INJ 10MG/2ML VIAL (J2765 PER 1) As Ordered ONE (11:23)
[2019-12-01] MEDS ORDERED: LIDOCAINE 1% SDV 30ML VIAL As Ordered ONE (11:32)
[2019-12-01] MEDS ORDERED: BUPIVACAINE/EPIN 0.5% 30 ML VIAL As Ordered ONE (11:33)
[2019-12-01] MEDS ORDERED: ePHEDrine SULFATE 25 MG/5 ML(5MG/ML) SYRINGE As Ordered ONE (11:34)
[2019-12-01] MEDS ORDERED: PHENYLephrine HCL 500 MCG/5 ML (100MCG/ML) SYRINGE (J2370) As Ordered ONE ×2 (11:36→12:56)
--- NOTE | 2019-12-01 12:24 | IPNPDOC ---
Text Note Date of Service The patient was seen on 12/01/19. NOTE Subjective: Patient seen and examined at bedside. No acute overnight events reported. In good spirits, no new medical complaints. Objective: VITAL SIGNS: See below General: NAD, anxious HEENT: NC/AT, EOMI Lungs: CTA B/L Heart: +s12s2, RRR Abd: obese, soft, NT, +BS Ext: bandages in place right foot ASSESSMENT/PLAN: 54 yo female sent by affirmative action specialist for direct admission for non-healing DFU, needing IV ABx. PMHx includes chronic right foot osteomyelitis, and medical non-compliance. #cellulitis/foot abscess - cultures +group B strep/staph aureus - completed 5 days vanc/zosyn - transitioned to Augmentin - day #3 - foreign objects found in right foot (3 insulin needles reported) - s/p debridement - unable to retrieve objects - no MRI evidence of osteo - continue Abx as per ID - assistance appreciated - o/p follow up - follow as per podiatry - assistance appreciated - wound care c/s - Dr. August appreciated - recommended surgical c/s for retrieval of foreign objects, perhaps using fluoroscopy - d/w surgery - no further intervention #UTI - symptoms have resolved - UCx shows yeast like organism #IDDM -sliding scale #diabetic neuropathy #HTN #DLP #BIPOLAR DISORDER/depression - duloxetine #MORBID OBESITY - complicates medical care #medical non-compliance #DVT prophylaxis Dispo: vascular surgery for debridement with fluoroscopy today VS,Fishbone, I+O VS, Fishbone, I+O Laboratory Tests 12/01/19 07:53 Vital Signs Date Time Temp Pulse Resp B/P (MAP) Pulse Ox O2 Delivery O2 Flow Rate FiO2 12/01/19 09:03 154/79 12/01/19 06:00 98.0 80 20 97 11/30/19 22:00 Room Air 11/25/19 18:02 2 I&O- Last 24 Hours up to 6 AM 12/01/19 06:00 Intake Total 1720 ml Output Total 1100 ml Balance 620 ml AZUCENA BOYD MD Dec 01, 2019 12:24
[2019-12-01] MEDS ORDERED: ONDANSETRON 4MG/2ML VIAL IV PRN (13:30)
[2019-12-01] MEDS ORDERED: LR 1,000 ML IV SCH (13:30)
[2019-12-01] MEDS ORDERED: fentaNYL 100 MCG/2 ML INJECTION (J3010) IV PRN (13:30)
--- NOTE | 2019-12-01 13:34 | ROOPDOC ---
[facility] Report Of Operation Report of Operation DATE OF PROCEDURE: 12/01/19 PREPROCEDURE DIAGNOSES: Foreign body x 2 right foot POSTPROCEDURE DIAGNOSES: Same PROCEDURE: 1. Removal foreign body right foot x 2 with fluoroscopy SURGEON: Jerry Canas MD ANESTHESIA: General anesthesia and local anesthesia INDICATION FOR PROCEDURE: This is a very pleasant 54yo patient with large open wound plantar right foot and Xray confirmed foreign bodies x 2 in plantar central and lateral foot. We have been consulted for removal of foreign bodies, suspected to be broken insulin needles. Risks, benefits and alternatives were explained to the patient and she is agreeable to proceed. Informed consent was obtained. REPORT OF OPERATION: The patient was brought to the OR in stable condition and placed supine on the OR table. Anesthesia and antibiotics were administered without complication. Prior to prepping, I scrubbed her foot and removed a large amount of skin, callous, and superficially scrubbed the wound with chlorahexadine to try to clean the foot. Her right foot was then prepped and draped in a sterile fashion. A time out was performed. Serial GUYANESE, BOTELLO, and lateral fluoroscopy images were obtained with a 23 gauge needle inserted into the foot to isolate the location of the foreign body. For the central foot, we were able to isolate the location using the already open wound. A bovie cautery was used to dissect a bit deeper over the foreign body through the existing wound. A few clips were placed on a bridging vein which was subsequently cut to provide exposure. Blunt dissection was then used to identify and remove the foreign body. We irrigated with saline. Hemostasis was intact. Next, we repeated this procedure with fluoroscopy for the lateral foot, but were not able to use the open foot wound to access the area as it was far removed from the open wound. Once we had the needle locating the foreign body, a lateral foot 2 cm incision was made. Blunt and sharp dissection were used to access the foreign body, which was subsequently removed. Both foreign bodies were sent for pathology. The foot was thoroughly cleaned and dried. Sterile dressings were applied. The patient was taken to recovery in stable condition. SPECIMEN: Foreign bodies x2 right foot sent for pathology. ESTIMATED BLOOD LOSS: Approximately 25 mL. COMPLICATIONS: None. PLAN: Resume right foot care and wound care per Dr Alicea and Dr August. Lateral foot incision sutures should remain 2 weeks, then can be removed. Continue antibiotics and medications per primary team. Ok to resume preop diet and activity level per primary team. We appreciate the opportunity to participate in the care of this patient. JERRY CANAS MD Dec 01, 2019 13:34
[2019-12-01] MEDS ORDERED: HumaLOG INSULIN (NovoLOG) PER UNIT SC ONE (13:45)
[2019-12-01] MEDS ORDERED: HumaLOG INSULIN (NovoLOG) PER UNIT As Ordered ONE (13:47)
[2019-12-01] MEDS: PERCOCET 5MG/325MG TAB PO PRN ×2 (14:26→20:40)
--- NOTE | 2019-12-01 16:01 | REP ---
C-ARM VIEWS RIGHT FOOT: Multiple C-arm views right foot performed during removal of soft tissue foreign bodies. 20 seconds of fluoroscopy time utilized. Electronically Signed by Keith García MD 12/01/2019 07:55 P
[2019-12-01] MEDS ORDERED: cefTRIAXone SOD 2 GM in D5W MINI-BAG PLUS 50 ML IV ONE (19:00)
[2019-12-01] MEDS: ATORVASTATIN 20 MG TAB PO SCH (20:39)
[2019-12-01] MEDS: DULoxetine 30 MG CAP (CYMBALTA) PO SCH (20:39)
--- NOTE | 2019-12-01 22:12 | IPN ---
DATE: 12/01/2019 Iliana went to the operating room (OR) today with Dr. Canas who was able to find two foreign bodies in the right foot. She had to do another incision. The patient is seen postoperatively. She has no complaints. No fever or chills. No nausea, vomiting or diarrhea. LABS: White count is 11.9, hemoglobin 10.2, hematocrit 32.1, platelets 480. Sodium 137, potassium 4.3, chloride 101, bicarbonate 26, BUN 17, creatinine 0.87, glucose 243, calcium 8.9, bilirubin 0.2, AST 19, ALT 29, CRP 1.43. Wound cultures were positive for Group B Streptococcus (strep) and Staphylococcus (staph) aureus. A urine culture had yeast-like organism, treated with Diflucan. PHYSICAL EXAM: Temperature is 98, pulse 89, respirations 18, blood pressure 128/61, oxygen saturation (O2 sat) 94% on room air. Heart: Normal S1, S2. No murmurs. Lungs are clear. No wheezes, rales or rhonchi. Abdomen: Morbidly obese, soft, nontender. Extremities: Bilateral transmetatarsal amputation. Right foot is covered with Coban and a dressing and was not opened since she just came back from the OR. IMPRESSION: 1. Right foot abscess, status post incision and drainage (I and D) with culture positive for Group B strep and methicillin-sensitive Staphylococcus aureus (MSSA), on Augmentin. Will give her one dose of IV Rocephin tonight since she just came back from the OR and had some surgical wound debridement. 2. Foreign body in foot, status post removal. 3. Insulin-dependent diabetes, poorly controlled. PLAN: Will give her one dose of IV Rocephin tonight, hold Augmentin for tonight's dose and resume tomorrow oral Augmentin. From an infectious disease standpoint, the patient can go home to finish 10 days of Augmentin. She would followup at Dr. August at the wound clinic weekly. She can see me in the office in 7-10 days post discharge.
[2019-12-02 02:00] VITALS: BP 143/80
[2019-12-02] MEDS: PERCOCET 5MG/325MG TAB PO PRN ×2 (05:59→12:30)
[2019-12-02] MEDS: SODIUM CHLORIDE 0.9% INJ 10 ML SYR IV SCH (05:59)
[2019-12-02 06:00] VITALS: BP 131/57
[2019-12-02] MEDS: LEVEMIR (INSULIN DETEMIR) 1 UNITS/0.01ML SC SCH (08:30)
[2019-12-02 08:31] VITALS: BP 150/78
[2019-12-02] MEDS: amLODIPine 5 MG TAB PO SCH (08:31)
[2019-12-02] MEDS: FUROSEMIDE 40 MG TAB PO SCH (08:31)
[2019-12-02] MEDS: HumaLOG INSULIN (NovoLOG) PER UNIT SC SCH ×2 (08:31→11:57)
[2019-12-02] MEDS: AUGMENTIN 875 MG TAB PO SCH (08:31)
[2019-12-02] MEDS: MULTIVITAMINS/MINERALS THERAP 1 TAB PO SCH (08:31)
[2019-12-02] MEDS: LOSARTAN 50MG TABLET PO SCH (08:32)
--- NOTE | 2019-12-02 09:06 | IPNPDOC ---
Text Note Date of Service The patient was seen on 12/02/19. NOTE Vascular surgery. Dr. Canas 54 year old F with a past medical history significant for nonhealing wound right foot who was sent for admission by Dr. August for non-healing right plantar diabetic foot ulcer. The patient was found to have foreign body in the right foot and is status post removal foreign body right foot x 2 with fluoroscopy as per Dr. Canas 12/01/19. The patient states her pain has been controlled. She is sitting up at the side of the bed this morning eating breakfast. The patient's dressing is removed. Small amount of bloody drainage is noted on the patient's dressings. Open wound across the plantar aspect of the foot is unchanged, surrounding skin is pink. There is a small approximate 2 cm incision at the lateral aspect of the foot with sutures intact. The incision was cleaned. Dressing is reapplied. Resume right foot care and wound care per Dr Alicea and Dr August. Lateral foot incision sutures should remain 2 weeks, then can be removed. Continue antibiotics and medications per primary team. We appreciate the opportunity to participate in the care of this patient. VS,Fishbone, I+O VS, Fishbone, I+O Vital Signs Date Time Temp Pulse Resp B/P (MAP) Pulse Ox O2 Delivery O2 Flow Rate FiO2 12/02/19 08:31 83 150/78 12/02/19 06:29 18 Room Air 12/02/19 06:00 97.8 95 I&O- Last 24 Hours up to 6 AM 12/02/19 05:59 Intake Total 2095 ml Output Total 1125 ml Balance 970 ml Shauna Medina Dec 02, 2019 09:06
[2019-12-02 10:00] VITALS: BP 150/67
--- NOTE | 2019-12-02 18:40 | RO ---
DATE OF PROCEDURE: 11/25/2019 PREPROCEDURE DIAGNOSIS: Abscess formation right foot with foreign body. POSTPROCEDURE DIAGNOSIS: Abscess formation right foot. PROCEDURE: SURGEON: Dr. Justin Alicea DPM MAINTENANCE COORDINATOR: Incision and drainage deep and superficial space abscess, right foot. ANESTHESIA: Local monitored anesthesia care (MAC). IRRIGATION: Dilute vancomycin solution, 3 liters, low pressure pulse lavage system. HEMOSTASIS: None. ESTIMATED BLOOD LOSS: 50 mL. DESCRIPTION OF PROCEDURE: On 11/25/2019, this 54-year-old female was taken from her hospital room to the operating room, placed on the operating table in the supine position. Following the induction of IV sedation and local and regional anesthesia, attention was directed to the patient's right foot. There were three ulcerations on the plantar aspect of the right foot. There was purulent material draining from each abscess. Utilizing a scissor, the wound was explored. There was actually a tunnel going from the central abscess to the lateral abscess. Exploration of the medial abscess revealed this was also connected to the abscess area deep to the plantar fascia. An incision was made connecting all three ulcer formations, utilizing care during dissection to avoid any neurovascular bundle, dissection was carried down to the plantar fascia. Small area of abscess was located superficial to the plantar fascia, but the majority of the drainage was being expressed from deep to the plantar fascia; therefore, the plantar fascia was transected. Inferior to the 3rd and 4th metatarsal area was an adventitious bursa formation, utilizing care to debride the adventitious bursa while leaving the tendinous structures in that area. All purulent matter was expressed. The wound was explored for any foreign bodies. Utilizing C-arm imagery, the needles were present proximal to this ulcer, therefore, no attempt was made to further extend the wound to look for any foreign bodies. The wound was then lavaged with 3 liters of dilute vancomycin solution with a low pressure pulse lavage system, and the wound was packed with half-inch Iodoform gauze and a sterile dressing was applied. All bleeders as encountered were electrocoagulated. We discussed with the patient possible delayed primary closure. Her questions were answered. Antibiotics will be tailored by infectious disease. JACOB
== END 2019-12-02 13:04 | disposition home health service (06) | DRG 364 ==
LOC: M MSPAV 11:59 → EEVIPCON 11:59
PROVIDERS: ADMIT Internal Medicine; ATTEND Internal Medicine
PROC: 02HV33Z Insertion of Infusion Device into Superior Vena Cava, Percutaneous Approach (ICD-10-PCS; 2019-11-24)
PROC: 0JDQ0ZZ Extraction of Right Foot Subcutaneous Tissue and Fascia, Open Approach (ICD-10-PCS; 2019-11-25)
PROC: BW1CZZZ Fluoroscopy of Lower Extremity (ICD-10-PCS; 2019-12-01)
PROC: 0JBQ0ZZ Excision of Right Foot Subcutaneous Tissue and Fascia, Open Approach (ICD-10-PCS; principal; 2019-12-01 09:45)
DX: E11.621 Type 2 diabetes mellitus with foot ulcer (principal); E11.40 Type 2 diabetes mellitus with diabetic neuropathy, unspecified; L97.518 Non-pressure chronic ulcer of other part of right foot with other specified severity; I10 Essential (primary) hypertension; B37.49 Other urogenital candidiasis; M77.31 Calcaneal spur, right foot; E66.01 Morbid (severe) obesity due to excess calories; Z68.41 Body mass index [BMI] 40.0-44.9, adult; E11.65 Type 2 diabetes mellitus with hyperglycemia; E78.5 Hyperlipidemia, unspecified; F31.9 Bipolar disorder, unspecified; Z22.322 Carrier or suspected carrier of Methicillin resistant Staphylococcus aureus; Z91.19 Patient's noncompliance with other medical treatment and regimen; Z79.4 Long term (current) use of insulin; Z79.899 Other long term (current) drug therapy; Z88.1 Allergy status to other antibiotic agents; Z88.8 Allergy status to other drugs, medicaments and biological substances; Z11.59 Encounter for screening for other viral diseases; Z89.421 Acquired absence of other right toe(s); Z89.422 Acquired absence of other left toe(s); L02.611 Cutaneous abscess of right foot; B95.62 Methicillin resistant Staphylococcus aureus infection as the cause of diseases classified elsewhere; B95.1 Streptococcus, group B, as the cause of diseases classified elsewhere; S90.851A Superficial foreign body, right foot, initial encounter; W46.0XXA Contact with hypodermic needle, initial encounter; Y92.9 Unspecified place or not applicable; Y99.8 Other external cause status

== ENCOUNTER → 2019-12-15 | Outpatient (REF) | payer OTHER ==
[~2019-12-15] MED LIST changes: +ACET25TA12 PO; +AMOX875T2 PO; +DULO60CA35 PO; +IBUP1TAB6 PO
[2019-12-15 17:21] LABS: BASO # 0.1 10^3/uL (0.0-0.2); BASO % 0.8 % (0.0-1.0); EOS # 0.5 10^3/uL (0.0-0.5); EOS % 4.5 % (0.0-3.0); HEMATOCRIT 31.8 % (36.0-47.0); HEMOGLOBIN 9.9 g/dl (12.0-15.5); LYMPH # 4.1 10^3/uL (1.5-5.0); MEAN CORPUSCULAR HEMOGLOBIN 27.8 pg (27.0-33.0); MEAN CORPUSCULAR HGB CONC 31.1 g/dl (32.0-36.5); MEAN CORPUSCULAR VOLUME 89.3 fl (80.0-96.0); MONO # 0.8 10^3/uL (0.0-0.8); MONO % 7.3 % (0.0-5.0); NEUTROPHILS # 4.9 10^3/uL (1.5-8.5); NEUTROPHILS % 47.2 % (36.0-66.0); PLATELET COUNT, AUTOMATED 426 10^3/uL (150-450); RED BLOOD COUNT 3.56 10^6/uL (4.00-5.40); WHITE BLOOD COUNT 10.4 10^3/uL (4.0-10.0)
[2019-12-15 17:41] LABS: BLOOD UREA NITROGEN 15 MG/DL (7-18); C REACTIVE PROTEIN QUANTITATIV 2.81 MG/DL (0.00-0.30); CALCIUM LEVEL 9.8 MG/DL (8.5-10.1); CARBON DIOXIDE LEVEL 26 MEQ/L (21-32); CHLORIDE LEVEL 103 MEQ/L (98-107); CREATININE FOR GFR 0.68 MG/DL (0.55-1.30); GLOMERULAR FILTRATION RATE > 60.0 (>51); GLUCOSE, FASTING 89 MG/DL (70-100); POTASSIUM SERUM 4.9 MEQ/L (3.5-5.1); SODIUM LEVEL 135 MEQ/L (136-145)
[2019-12-15 17:54] LABS: ERYTHROCYTE SEDIMENTATION RATE > 140 mm/hr (0-30)
== END ==
LOC: M SFHCPLAZ 15:04
PROVIDERS: ATTEND Internal Medicine Infectious Disease
DX: A49.01 Methicillin susceptible Staphylococcus aureus infection, unspecified site (principal)

== ENCOUNTER → 2019-12-23 | Outpatient (REF) | payer OTHER ==
[2019-12-23 15:06] LABS: BASO # 0.1 10^3/uL (0.0-0.2); BASO % 0.8 % (0.0-1.0); EOS # 0.3 10^3/uL (0.0-0.5); EOS % 2.7 % (0.0-3.0); HEMATOCRIT 35.3 % (36.0-47.0); HEMOGLOBIN 10.6 g/dl (12.0-15.5); LYMPH # 4.2 10^3/uL (1.5-5.0); LYMPH % 33.8 % (24.0-44.0); MEAN CORPUSCULAR VOLUME 90.1 fl (80.0-96.0); MONO # 0.9 10^3/uL (0.0-0.8); MONO % 7.3 % (0.0-5.0); NEUTROPHILS # 6.8 10^3/uL (1.5-8.5); NEUTROPHILS % 53.9 % (36.0-66.0); PLATELET COUNT, AUTOMATED 613 10^3/uL (150-450); RED BLOOD COUNT 3.92 10^6/uL (4.00-5.40); WHITE BLOOD COUNT 12.6 10^3/uL (4.0-10.0)
[2019-12-23 15:29] LABS: BLOOD UREA NITROGEN 19 MG/DL (7-18); C REACTIVE PROTEIN QUANTITATIV 3.85 MG/DL (0.00-0.30); CALCIUM LEVEL 9.4 MG/DL (8.5-10.1); CARBON DIOXIDE LEVEL 29 MEQ/L (21-32); CHLORIDE LEVEL 101 MEQ/L (98-107); CREATININE FOR GFR 0.72 MG/DL (0.55-1.30); GLOMERULAR FILTRATION RATE > 60.0 (>51); GLUCOSE, FASTING 162 MG/DL (70-100); POTASSIUM SERUM 4.8 MEQ/L (3.5-5.1); SODIUM LEVEL 136 MEQ/L (136-145)
[2019-12-23 16:38] LABS: ERYTHROCYTE SEDIMENTATION RATE 88 mm/hr (0-30)
== END ==
LOC: M SHH 14:42
PROVIDERS: ATTEND Internal Medicine Infectious Disease
DX: A49.01 Methicillin susceptible Staphylococcus aureus infection, unspecified site (principal)

== ENCOUNTER → 2020-01-04 | Outpatient (REF) | payer OTHER ==
[~2020-01-04] MED LIST changes: +AMLO1TAB24 PO; -AMLO5TAB6 PO; +ASCO250T20 PO; -VITA1TAB23 PO
[2020-01-04 17:12] LABS: BASO # 0.1 10^3/uL (0.0-0.2); BASO % 0.6 % (0.0-1.0); EOS # 0.4 10^3/uL (0.0-0.5); EOS % 2.5 % (0.0-3.0); HEMATOCRIT 34.3 % (36.0-47.0); HEMOGLOBIN 10.4 g/dl (12.0-15.5); LYMPH % 28.4 % (24.0-44.0); MEAN CORPUSCULAR HEMOGLOBIN 26.3 pg (27.0-33.0); MEAN CORPUSCULAR HGB CONC 30.3 g/dl (32.0-36.5); MEAN CORPUSCULAR VOLUME 86.8 fl (80.0-96.0); MONO # 1.1 10^3/uL (0.0-0.8); MONO % 7.6 % (0.0-5.0); NEUTROPHILS # 8.5 10^3/uL (1.5-8.5); NEUTROPHILS % 59.9 % (36.0-66.0); PLATELET COUNT, AUTOMATED 384 10^3/uL (150-450); RED BLOOD COUNT 3.95 10^6/uL (4.00-5.40); WHITE BLOOD COUNT 14.1 10^3/uL (4.0-10.0)
[2020-01-04 17:25] LABS: BLOOD UREA NITROGEN 15 MG/DL (7-18); C REACTIVE PROTEIN QUANTITATIV 1.61 MG/DL (0.00-0.30); CALCIUM LEVEL 9.1 MG/DL (8.5-10.1); CARBON DIOXIDE LEVEL 29 MEQ/L (21-32); CHLORIDE LEVEL 104 MEQ/L (98-107); GLOMERULAR FILTRATION RATE > 60.0 (>51); GLUCOSE, FASTING 72 MG/DL (70-100); POTASSIUM SERUM 4.1 MEQ/L (3.5-5.1); SODIUM LEVEL 140 MEQ/L (136-145)
[2020-01-04 17:43] LABS: ERYTHROCYTE SEDIMENTATION RATE 77 mm/hr (0-30)
== END ==
LOC: M SHH 16:22
PROVIDERS: ATTEND Internal Medicine Infectious Disease
DX: L02.611 Cutaneous abscess of right foot (principal)

== ENCOUNTER 2020-01-26 09:25 | Inpatient (IN) | payer OTHER ==
[2020-01-26] MEDS ORDERED: ONDANSETRON 4MG/2ML VIAL As Ordered ONE (17:53)
[2020-01-26] MEDS ORDERED: VANCOMYCIN 1000MG/20ML VIAL As Ordered ONE (17:58)
[2020-01-26] MEDS ORDERED: VANCOMYCIN 1000MG/20ML VIAL ONE (17:58)
[2020-01-26] MEDS ORDERED: ONDANSETRON 4MG/2ML VIAL ONE (17:58)
[2020-01-27] MEDS ORDERED: PROHANCE 279.3MG/ML 5ML VIAL As Ordered ONE (01:03)
[2020-01-27] MEDS ORDERED: VANCOMYCIN 1000MG/20ML VIAL As Ordered ONE ×3 (04:21→23:22)
[2020-01-27] MEDS ORDERED: cefTRIAXone SOD 2 GM VIAL (J0696 PER 250MG) ONE (04:21)
[2020-01-27] MEDS ORDERED: VANCOMYCIN 1000MG/20ML VIAL ONE ×3 (04:21→20:54)
[2020-01-27] MEDS ORDERED: cefTRIAXone SOD 2 GM VIAL (J0696 PER 250MG) As Ordered ONE (05:44)
[2020-01-27] MEDS ORDERED: HumaLOG INSULIN (NovoLOG) PER UNIT As Ordered ONE ×3 (13:58→20:54)
[2020-01-27] MEDS ORDERED: DULoxetine 30 MG CAP (CYMBALTA) ONE (13:59)
[2020-01-27] MEDS ORDERED: HumaLOG INSULIN (NovoLOG) PER UNIT ONE ×3 (13:59→20:54)
[2020-01-27] MEDS ORDERED: PERCOCET 5MG/325MG TAB As Ordered ONE (13:59)
[2020-01-27] MEDS ORDERED: PERCOCET 5MG/325MG TAB ONE (13:59)
[2020-01-27] MEDS ORDERED: LOSARTAN 50MG TABLET As Ordered ONE (13:59)
[2020-01-27] MEDS ORDERED: DULoxetine 30 MG CAP (CYMBALTA) As Ordered ONE (13:59)
[2020-01-27] MEDS ORDERED: LOSARTAN 50MG TABLET ONE (13:59)
[2020-01-27] MEDS ORDERED: LIDOCAINE 1% MDV 20ML VIAL As Ordered ONE (14:10)
[2020-01-27] MEDS ORDERED: MORPHINE 2 MG/ML 1ML VIAL (J2270) As Ordered ONE (18:57)
[2020-01-27] MEDS ORDERED: MORPHINE 2 MG/ML 1ML VIAL (J2270) ONE (18:57)
[2020-01-27] MEDS ORDERED: ZOSYN 3.375GM VIAL (J2543) As Ordered ONE (18:57)
[2020-01-27] MEDS ORDERED: ZOSYN 3.375GM VIAL (J2543) ONE (18:57)
[2020-01-27] MEDS ORDERED: LEVEMIR (INSULIN DETEMIR) 1 UNITS/0.01ML ONE (20:54)
[2020-01-27] MEDS ORDERED: LEVEMIR (INSULIN DETEMIR) 1 UNITS/0.01ML As Ordered ONE (20:55)
[2020-01-28] MEDS ORDERED: ZOSYN 3.375GM VIAL (J2543) ONE ×4 (00:46→18:18)
[2020-01-28] MEDS ORDERED: PERCOCET 5MG/325MG TAB ONE ×2 (00:46→21:11)
[2020-01-28] MEDS ORDERED: ZOSYN 3.375GM VIAL (J2543) As Ordered ONE ×4 (00:46→18:18)
[2020-01-28] MEDS ORDERED: PERCOCET 5MG/325MG TAB As Ordered ONE ×2 (00:58→21:16)
[2020-01-28] MEDS ORDERED: VANCOMYCIN 1000MG/20ML VIAL ONE ×2 (06:34→15:09)
[2020-01-28] MEDS ORDERED: VANCOMYCIN 1000MG/20ML VIAL As Ordered ONE ×2 (06:34→15:09)
[2020-01-28] MEDS ORDERED: HumaLOG INSULIN (NovoLOG) PER UNIT ONE ×3 (07:53→18:18)
[2020-01-28] MEDS ORDERED: HumaLOG INSULIN (NovoLOG) PER UNIT As Ordered ONE ×3 (07:53→18:18)
[2020-01-28] MEDS ORDERED: LEVEMIR (INSULIN DETEMIR) 1 UNITS/0.01ML ONE ×2 (07:53→21:11)
[2020-01-28] MEDS ORDERED: DULoxetine 30 MG CAP (CYMBALTA) ONE (07:53)
[2020-01-28] MEDS ORDERED: LOSARTAN 50MG TABLET ONE (07:53)
[2020-01-28] MEDS ORDERED: LOSARTAN 50MG TABLET As Ordered ONE (07:54)
[2020-01-28] MEDS ORDERED: DULoxetine 30 MG CAP (CYMBALTA) As Ordered ONE (07:55)
[2020-01-28] MEDS ORDERED: LEVEMIR (INSULIN DETEMIR) 1 UNITS/0.01ML As Ordered ONE ×2 (07:57→21:11)
[2020-01-28] MEDS ORDERED: NYSTATIN 100,000 UNITS/GM TOPICAL PWD 15 GM ONE (13:00)
[2020-01-29] MEDS ORDERED: VANCOMYCIN 1000MG/20ML VIAL ONE (01:11)
[2020-01-29] MEDS ORDERED: ZOSYN 3.375GM VIAL (J2543) ONE ×4 (01:11→17:40)
[2020-01-29] MEDS ORDERED: VANCOMYCIN 750MG/25ML VIAL As Ordered ONE ×3 (01:11→19:24)
[2020-01-29] MEDS ORDERED: ZOSYN 3.375GM VIAL (J2543) As Ordered ONE ×4 (01:11→17:40)
[2020-01-29] MEDS ORDERED: DULoxetine 30 MG CAP (CYMBALTA) As Ordered ONE (09:29)
[2020-01-29] MEDS ORDERED: HumaLOG INSULIN (NovoLOG) PER UNIT As Ordered ONE ×3 (09:29→21:45)
[2020-01-29] MEDS ORDERED: LOSARTAN 50MG TABLET ONE (09:29)
[2020-01-29] MEDS ORDERED: DULoxetine 30 MG CAP (CYMBALTA) ONE (09:29)
[2020-01-29] MEDS ORDERED: VANCOMYCIN 750MG/25ML VIAL ONE ×2 (09:29→19:24)
[2020-01-29] MEDS ORDERED: HumaLOG INSULIN (NovoLOG) PER UNIT ONE ×3 (09:29→21:45)
[2020-01-29] MEDS ORDERED: LOSARTAN 50MG TABLET As Ordered ONE (09:29)
[2020-01-29] MEDS ORDERED: LEVEMIR (INSULIN DETEMIR) 1 UNITS/0.01ML ONE ×2 (09:31→21:45)
[2020-01-29] MEDS ORDERED: LEVEMIR (INSULIN DETEMIR) 1 UNITS/0.01ML As Ordered ONE ×2 (09:31→21:45)
[2020-01-30] MEDS ORDERED: VANCOMYCIN 750MG/25ML VIAL As Ordered ONE (01:33)
[2020-01-30] MEDS ORDERED: ZOSYN 3.375GM VIAL (J2543) As Ordered ONE (01:33)
[2020-01-30] MEDS ORDERED: ZOSYN 3.375GM VIAL (J2543) ONE (01:33)
[2020-01-30] MEDS ORDERED: VANCOMYCIN 750MG/25ML VIAL ONE (01:33)
[2020-01-30] MEDS ORDERED: LOSARTAN 50MG TABLET ONE (08:37)
[2020-01-30] MEDS ORDERED: LOSARTAN 50MG TABLET As Ordered ONE (08:37)
[2020-01-30] MEDS ORDERED: HumaLOG INSULIN (NovoLOG) PER UNIT As Ordered ONE ×4 (08:37→23:14)
[2020-01-30] MEDS ORDERED: LEVEMIR (INSULIN DETEMIR) 1 UNITS/0.01ML ONE ×2 (08:37→23:14)
[2020-01-30] MEDS ORDERED: DULoxetine 30 MG CAP (CYMBALTA) ONE (08:37)
[2020-01-30] MEDS ORDERED: HumaLOG INSULIN (NovoLOG) PER UNIT ONE ×4 (08:37→23:14)
[2020-01-30] MEDS ORDERED: DULoxetine 30 MG CAP (CYMBALTA) As Ordered ONE (08:38)
[2020-01-30] MEDS ORDERED: LEVEMIR (INSULIN DETEMIR) 1 UNITS/0.01ML As Ordered ONE ×2 (08:39→23:15)
[2020-01-30] MEDS ORDERED: LEVOTHYROXINE 75MCG TABLET (0.075MG) ONE (17:43)
[2020-01-30] MEDS ORDERED: LevoFLOXacin 750 MG TABLET As Ordered ONE (17:43)
[2020-01-30] MEDS ORDERED: PERCOCET 5MG/325MG TAB ONE (23:14)
[2020-01-30] MEDS ORDERED: PERCOCET 5MG/325MG TAB As Ordered ONE (23:14)
[2020-01-31] MEDS ORDERED: amLODIPine 10 MG TAB As Ordered ONE ×2 (00:10→08:10)
[2020-01-31] MEDS ORDERED: amLODIPine 10 MG TAB ONE ×2 (00:10→08:09)
[2020-01-31] MEDS ORDERED: HumaLOG INSULIN (NovoLOG) PER UNIT As Ordered ONE ×4 (08:09→22:59)
[2020-01-31] MEDS ORDERED: LOSARTAN 50MG TABLET ONE (08:09)
[2020-01-31] MEDS ORDERED: DULoxetine 30 MG CAP (CYMBALTA) ONE (08:09)
[2020-01-31] MEDS ORDERED: HumaLOG INSULIN (NovoLOG) PER UNIT ONE ×4 (08:09→22:59)
[2020-01-31] MEDS ORDERED: LEVEMIR (INSULIN DETEMIR) 1 UNITS/0.01ML ONE ×2 (08:09→22:59)
[2020-01-31] MEDS ORDERED: LOSARTAN 50MG TABLET As Ordered ONE (08:10)
[2020-01-31] MEDS ORDERED: DULoxetine 30 MG CAP (CYMBALTA) As Ordered ONE (08:10)
[2020-01-31] MEDS ORDERED: LEVEMIR (INSULIN DETEMIR) 1 UNITS/0.01ML As Ordered ONE ×2 (08:12→23:00)
[2020-01-31] MEDS ORDERED: PERCOCET 5MG/325MG TAB As Ordered ONE ×2 (09:40→17:24)
[2020-01-31] MEDS ORDERED: PERCOCET 5MG/325MG TAB ONE ×2 (09:40→17:24)
[2020-01-31] MEDS ORDERED: LIDOCAINE 1% MDV 20ML VIAL As Ordered ONE (13:18)
[2020-01-31] MEDS ORDERED: NAFCILLIN SOD 2GM VIAL ONE (16:00)
[2020-02-01] MEDS ORDERED: PERCOCET 5MG/325MG TAB ONE ×3 (00:07→20:11)
[2020-02-01] MEDS ORDERED: PERCOCET 5MG/325MG TAB As Ordered ONE ×4 (00:07→20:11)
[2020-02-01] MEDS ORDERED: DULoxetine 30 MG CAP (CYMBALTA) ONE (08:39)
[2020-02-01] MEDS ORDERED: HumaLOG INSULIN (NovoLOG) PER UNIT As Ordered ONE ×4 (08:39→20:24)
[2020-02-01] MEDS ORDERED: amLODIPine 10 MG TAB ONE (08:39)
[2020-02-01] MEDS ORDERED: LEVEMIR (INSULIN DETEMIR) 1 UNITS/0.01ML ONE ×2 (08:39→20:11)
[2020-02-01] MEDS ORDERED: LOSARTAN 50MG TABLET ONE (08:39)
[2020-02-01] MEDS ORDERED: HumaLOG INSULIN (NovoLOG) PER UNIT ONE ×4 (08:39→20:11)
[2020-02-01] MEDS ORDERED: amLODIPine 10 MG TAB As Ordered ONE (08:41)
[2020-02-01] MEDS ORDERED: LOSARTAN 50MG TABLET As Ordered ONE (08:41)
[2020-02-01] MEDS ORDERED: DULoxetine 30 MG CAP (CYMBALTA) As Ordered ONE (08:41)
[2020-02-01] MEDS ORDERED: LEVEMIR (INSULIN DETEMIR) 1 UNITS/0.01ML As Ordered ONE ×2 (08:43→20:25)
[2020-02-01] MEDS ORDERED: diphenhydrAMINE 25MG CAP ONE (12:07)
[2020-02-01] MEDS ORDERED: diphenhydrAMINE 25MG CAP As Ordered ONE (12:27)
[2020-02-01] MEDS ORDERED: NAFCILLIN SOD 2GM VIAL ONE (13:00)
[2020-02-02] MEDS ORDERED: diphenhydrAMINE 25MG CAP ONE ×2 (02:12→21:18)
[2020-02-02] MEDS ORDERED: diphenhydrAMINE 25MG CAP As Ordered ONE ×2 (02:12→21:18)
[2020-02-02] MEDS ORDERED: DULoxetine 30 MG CAP (CYMBALTA) ONE (08:42)
[2020-02-02] MEDS ORDERED: amLODIPine 10 MG TAB ONE (08:42)
[2020-02-02] MEDS ORDERED: LEVEMIR (INSULIN DETEMIR) 1 UNITS/0.01ML ONE ×2 (08:42→21:18)
[2020-02-02] MEDS ORDERED: LOSARTAN 50MG TABLET ONE (08:42)
[2020-02-02] MEDS ORDERED: HumaLOG INSULIN (NovoLOG) PER UNIT ONE ×5 (08:42→21:18)
[2020-02-02] MEDS ORDERED: HumaLOG INSULIN (NovoLOG) PER UNIT As Ordered ONE ×4 (08:42→21:18)
[2020-02-02] MEDS ORDERED: LOSARTAN 50MG TABLET As Ordered ONE (08:43)
[2020-02-02] MEDS ORDERED: amLODIPine 10 MG TAB As Ordered ONE (08:43)
[2020-02-02] MEDS ORDERED: LEVEMIR (INSULIN DETEMIR) 1 UNITS/0.01ML As Ordered ONE ×2 (08:44→21:19)
[2020-02-02] MEDS ORDERED: DULoxetine 30 MG CAP (CYMBALTA) As Ordered ONE (08:48)
[2020-02-02] MEDS ORDERED: NAFCILLIN SOD 2GM VIAL ONE (16:00)
[2020-02-02] MEDS ORDERED: PERCOCET 5MG/325MG TAB ONE (21:18)
[2020-02-02] MEDS ORDERED: PERCOCET 5MG/325MG TAB As Ordered ONE (21:18)
[2020-02-03] MEDS ORDERED: ATORVASTATIN 10 MG TAB ONE (08:40)
[2020-02-03] MEDS ORDERED: metFORMIN (GLUCOPHAGE) 1000 MG TABLET ONE (08:40)
[2020-02-03] MEDS ORDERED: LEVEMIR (INSULIN DETEMIR) 1 UNITS/0.01ML ONE ×2 (08:40→21:01)
[2020-02-03] MEDS ORDERED: amLODIPine 5 MG TAB ONE (08:40)
[2020-02-03] MEDS ORDERED: ATORVASTATIN 10 MG TAB As Ordered ONE (08:40)
[2020-02-03] MEDS ORDERED: LOSARTAN 50MG TABLET ONE (08:40)
[2020-02-03] MEDS ORDERED: HumaLOG INSULIN (NovoLOG) PER UNIT ONE ×4 (08:40→21:01)
[2020-02-03] MEDS ORDERED: metFORMIN (GLUCOPHAGE) 1000 MG TABLET As Ordered ONE (08:40)
[2020-02-03] MEDS ORDERED: amLODIPine 5 MG TAB As Ordered ONE (08:40)
[2020-02-03] MEDS ORDERED: DULoxetine 30 MG CAP (CYMBALTA) As Ordered ONE (08:40)
[2020-02-03] MEDS ORDERED: LOSARTAN 50MG TABLET As Ordered ONE (08:40)
[2020-02-03] MEDS ORDERED: DULoxetine 30 MG CAP (CYMBALTA) ONE (08:40)
[2020-02-03] MEDS ORDERED: HumaLOG INSULIN (NovoLOG) PER UNIT As Ordered ONE ×4 (08:40→21:01)
[2020-02-03] MEDS ORDERED: LEVEMIR (INSULIN DETEMIR) 1 UNITS/0.01ML As Ordered ONE ×2 (08:42→21:02)
[2020-02-03] MEDS ORDERED: NAFCILLIN SOD 2GM VIAL ONE (18:00)
[2020-02-03] MEDS ORDERED: PERCOCET 5MG/325MG TAB ONE (21:01)
[2020-02-03] MEDS ORDERED: PERCOCET 5MG/325MG TAB As Ordered ONE (21:08)
[2020-02-04] MEDS ORDERED: LOSARTAN 50MG TABLET As Ordered ONE (10:01)
[2020-02-04] MEDS ORDERED: DULoxetine 30 MG CAP (CYMBALTA) ONE (10:01)
[2020-02-04] MEDS ORDERED: metFORMIN (GLUCOPHAGE) 1000 MG TABLET ONE (10:01)
[2020-02-04] MEDS ORDERED: amLODIPine 10 MG TAB ONE (10:01)
[2020-02-04] MEDS ORDERED: LOSARTAN 50MG TABLET ONE (10:01)
[2020-02-04] MEDS ORDERED: **hydrALAZINE** 10 MG TAB ONE ×3 (10:01→20:58)
[2020-02-04] MEDS ORDERED: ATORVASTATIN 10 MG TAB ONE (10:01)
[2020-02-04] MEDS ORDERED: amLODIPine 10 MG TAB As Ordered ONE (10:02)
[2020-02-04] MEDS ORDERED: metFORMIN (GLUCOPHAGE) 1000 MG TABLET As Ordered ONE (10:03)
[2020-02-04] MEDS ORDERED: **hydrALAZINE** 10 MG TAB As Ordered ONE ×3 (10:03→20:58)
[2020-02-04] MEDS ORDERED: ATORVASTATIN 10 MG TAB As Ordered ONE (10:03)
[2020-02-04] MEDS ORDERED: DULoxetine 30 MG CAP (CYMBALTA) As Ordered ONE (10:04)
[2020-02-04] MEDS ORDERED: NAFCILLIN SOD 2GM VIAL ONE (13:00)
[2020-02-04] MEDS ORDERED: HumaLOG INSULIN (NovoLOG) PER UNIT ONE ×3 (13:34→20:58)
[2020-02-04] MEDS ORDERED: HumaLOG INSULIN (NovoLOG) PER UNIT As Ordered ONE ×3 (13:34→20:58)
[2020-02-04] MEDS ORDERED: PERCOCET 5MG/325MG TAB As Ordered ONE (17:24)
[2020-02-04] MEDS ORDERED: diphenhydrAMINE 25MG CAP As Ordered ONE (17:24)
[2020-02-04] MEDS ORDERED: PERCOCET 5MG/325MG TAB ONE (17:54)
[2020-02-04] MEDS ORDERED: diphenhydrAMINE 25MG CAP ONE (17:54)
[2020-02-04] MEDS ORDERED: LEVEMIR (INSULIN DETEMIR) 1 UNITS/0.01ML ONE (20:58)
[2020-02-04] MEDS ORDERED: LEVEMIR (INSULIN DETEMIR) 1 UNITS/0.01ML As Ordered ONE (20:59)
[2020-02-05] MEDS ORDERED: diphenhydrAMINE 25MG CAP As Ordered ONE ×2 (06:27→22:11)
[2020-02-05] MEDS ORDERED: diphenhydrAMINE 25MG CAP ONE ×2 (06:27→22:03)
[2020-02-05] MEDS ORDERED: amLODIPine 10 MG TAB As Ordered ONE (08:06)
[2020-02-05] MEDS ORDERED: LEVEMIR (INSULIN DETEMIR) 1 UNITS/0.01ML ONE ×2 (08:06→22:03)
[2020-02-05] MEDS ORDERED: amLODIPine 10 MG TAB ONE (08:06)
[2020-02-05] MEDS ORDERED: DULoxetine 30 MG CAP (CYMBALTA) ONE (08:06)
[2020-02-05] MEDS ORDERED: HumaLOG INSULIN (NovoLOG) PER UNIT ONE ×2 (08:06→22:03)
[2020-02-05] MEDS ORDERED: HumaLOG INSULIN (NovoLOG) PER UNIT As Ordered ONE ×3 (08:06→22:03)
[2020-02-05] MEDS ORDERED: ATORVASTATIN 10 MG TAB ONE (08:06)
[2020-02-05] MEDS ORDERED: LOSARTAN 50MG TABLET As Ordered ONE (08:06)
[2020-02-05] MEDS ORDERED: metFORMIN (GLUCOPHAGE) 1000 MG TABLET ONE (08:06)
[2020-02-05] MEDS ORDERED: **hydrALAZINE** 10 MG TAB ONE ×4 (08:06→22:03)
[2020-02-05] MEDS ORDERED: LOSARTAN 50MG TABLET ONE (08:06)
[2020-02-05] MEDS ORDERED: ATORVASTATIN 10 MG TAB As Ordered ONE (08:07)
[2020-02-05] MEDS ORDERED: DULoxetine 30 MG CAP (CYMBALTA) As Ordered ONE (08:07)
[2020-02-05] MEDS ORDERED: **hydrALAZINE** 10 MG TAB As Ordered ONE ×4 (08:07→22:03)
[2020-02-05] MEDS ORDERED: metFORMIN (GLUCOPHAGE) 1000 MG TABLET As Ordered ONE (08:07)
[2020-02-05] MEDS ORDERED: LEVEMIR (INSULIN DETEMIR) 1 UNITS/0.01ML As Ordered ONE ×2 (08:09→22:04)
[2020-02-05] MEDS ORDERED: HYDROCORTISONE 1% CREAM 30 GM ONE ×2 (09:00→13:00)
[2020-02-05] MEDS ORDERED: NAFCILLIN SOD 2GM VIAL ONE (13:00)
[2020-02-06] MEDS ORDERED: PERCOCET 5MG/325MG TAB ONE ×2 (06:40→21:40)
[2020-02-06] MEDS ORDERED: PERCOCET 5MG/325MG TAB As Ordered ONE ×2 (06:43→21:40)
[2020-02-06] MEDS ORDERED: **hydrALAZINE** 10 MG TAB ONE ×4 (07:43→21:26)
[2020-02-06] MEDS ORDERED: amLODIPine 10 MG TAB ONE (07:43)
[2020-02-06] MEDS ORDERED: DULoxetine 30 MG CAP (CYMBALTA) ONE (07:43)
[2020-02-06] MEDS ORDERED: ATORVASTATIN 10 MG TAB ONE (07:43)
[2020-02-06] MEDS ORDERED: HumaLOG INSULIN (NovoLOG) PER UNIT ONE ×3 (07:43→21:26)
[2020-02-06] MEDS ORDERED: metFORMIN (GLUCOPHAGE) 1000 MG TABLET ONE (07:43)
[2020-02-06] MEDS ORDERED: HumaLOG INSULIN (NovoLOG) PER UNIT As Ordered ONE ×3 (07:43→21:26)
[2020-02-06] MEDS ORDERED: LEVEMIR (INSULIN DETEMIR) 1 UNITS/0.01ML ONE ×2 (07:43→21:26)
[2020-02-06] MEDS ORDERED: LOSARTAN 50MG TABLET ONE (07:43)
[2020-02-06] MEDS ORDERED: amLODIPine 10 MG TAB As Ordered ONE (07:44)
[2020-02-06] MEDS ORDERED: **hydrALAZINE** 10 MG TAB As Ordered ONE ×4 (07:44→21:26)
[2020-02-06] MEDS ORDERED: LOSARTAN 50MG TABLET As Ordered ONE (07:44)
[2020-02-06] MEDS ORDERED: ATORVASTATIN 10 MG TAB As Ordered ONE (07:45)
[2020-02-06] MEDS ORDERED: metFORMIN (GLUCOPHAGE) 1000 MG TABLET As Ordered ONE (07:45)
[2020-02-06] MEDS ORDERED: DULoxetine 30 MG CAP (CYMBALTA) As Ordered ONE (07:45)
[2020-02-06] MEDS ORDERED: LEVEMIR (INSULIN DETEMIR) 1 UNITS/0.01ML As Ordered ONE ×2 (07:46→21:28)
[2020-02-06] MEDS ORDERED: diphenhydrAMINE 25MG CAP As Ordered ONE ×2 (10:38→23:34)
[2020-02-06] MEDS ORDERED: diphenhydrAMINE 25MG CAP ONE ×2 (10:38→23:34)
[2020-02-07] MEDS ORDERED: ATORVASTATIN 10 MG TAB ONE (08:19)
[2020-02-07] MEDS ORDERED: LEVEMIR (INSULIN DETEMIR) 1 UNITS/0.01ML ONE ×2 (08:19→21:30)
[2020-02-07] MEDS ORDERED: HumaLOG INSULIN (NovoLOG) PER UNIT ONE ×3 (08:19→16:59)
[2020-02-07] MEDS ORDERED: HumaLOG INSULIN (NovoLOG) PER UNIT As Ordered ONE ×3 (08:19→16:59)
[2020-02-07] MEDS ORDERED: amLODIPine 10 MG TAB ONE (08:19)
[2020-02-07] MEDS ORDERED: **hydrALAZINE** 10 MG TAB ONE ×4 (08:19→21:30)
[2020-02-07] MEDS ORDERED: DULoxetine 30 MG CAP (CYMBALTA) ONE (08:19)
[2020-02-07] MEDS ORDERED: metFORMIN (GLUCOPHAGE) 1000 MG TABLET ONE (08:19)
[2020-02-07] MEDS ORDERED: LOSARTAN 50MG TABLET ONE (08:19)
[2020-02-07] MEDS ORDERED: **hydrALAZINE** 10 MG TAB As Ordered ONE ×4 (08:20→21:31)
[2020-02-07] MEDS ORDERED: ATORVASTATIN 10 MG TAB As Ordered ONE (08:20)
[2020-02-07] MEDS ORDERED: LOSARTAN 50MG TABLET As Ordered ONE (08:20)
[2020-02-07] MEDS ORDERED: metFORMIN (GLUCOPHAGE) 1000 MG TABLET As Ordered ONE (08:20)
[2020-02-07] MEDS ORDERED: amLODIPine 10 MG TAB As Ordered ONE (08:20)
[2020-02-07] MEDS ORDERED: DULoxetine 30 MG CAP (CYMBALTA) As Ordered ONE (08:21)
[2020-02-07] MEDS ORDERED: LEVEMIR (INSULIN DETEMIR) 1 UNITS/0.01ML As Ordered ONE ×2 (08:22→21:30)
[2020-02-07] MEDS ORDERED: NAFCILLIN SOD 2GM VIAL ONE (16:00)
[2020-02-07] MEDS ORDERED: PERCOCET 5MG/325MG TAB ONE (16:59)
[2020-02-07] MEDS ORDERED: PERCOCET 5MG/325MG TAB As Ordered ONE (17:03)
[2020-02-08] MEDS ORDERED: diphenhydrAMINE 25MG CAP As Ordered ONE (01:16)
[2020-02-08] MEDS ORDERED: diphenhydrAMINE 25MG CAP ONE (01:46)
[2020-02-08] MEDS ORDERED: HumaLOG INSULIN (NovoLOG) PER UNIT ONE (08:19)
[2020-02-08] MEDS ORDERED: LEVEMIR (INSULIN DETEMIR) 1 UNITS/0.01ML ONE (08:19)
[2020-02-08] MEDS ORDERED: LOSARTAN 50MG TABLET ONE (08:19)
[2020-02-08] MEDS ORDERED: DULoxetine 30 MG CAP (CYMBALTA) ONE (08:19)
[2020-02-08] MEDS ORDERED: HumaLOG INSULIN (NovoLOG) PER UNIT As Ordered ONE (08:19)
[2020-02-08] MEDS ORDERED: ATORVASTATIN 10 MG TAB ONE (08:19)
[2020-02-08] MEDS ORDERED: metFORMIN (GLUCOPHAGE) 1000 MG TABLET ONE (08:19)
[2020-02-08] MEDS ORDERED: metFORMIN (GLUCOPHAGE) 1000 MG TABLET As Ordered ONE (08:20)
[2020-02-08] MEDS ORDERED: DULoxetine 30 MG CAP (CYMBALTA) As Ordered ONE (08:20)
[2020-02-08] MEDS ORDERED: **hydrALAZINE** 10 MG TAB As Ordered ONE (08:20)
[2020-02-08] MEDS ORDERED: ATORVASTATIN 10 MG TAB As Ordered ONE (08:20)
[2020-02-08] MEDS ORDERED: amLODIPine 10 MG TAB As Ordered ONE (08:20)
[2020-02-08] MEDS ORDERED: LOSARTAN 50MG TABLET As Ordered ONE (08:20)
[2020-02-08] MEDS ORDERED: LEVEMIR (INSULIN DETEMIR) 1 UNITS/0.01ML As Ordered ONE (08:22)
[2020-02-08] MEDS ORDERED: NAFCILLIN SOD 2GM VIAL ONE (13:15)
[2020-02-08] MEDS ORDERED: TRIAMCINOLONE ACET 0.1% OINTMENT 80 GM ONE (13:19)
[2020-02-23 12:53] LABS: BASO # 0.1 10^3/uL (0.0-0.2); BASO % 0.8 % (0.0-1.0); EOS # 0.3 10^3/uL (0.0-0.5); EOS % 1.9 % (0.0-3.0); HEMATOCRIT 35.4 % (36.0-47.0); HEMOGLOBIN 10.9 g/dl (12.0-15.5); LYMPH % 21.4 % (24.0-44.0); MEAN CORPUSCULAR HEMOGLOBIN 25.8 pg (27.0-33.0); MEAN CORPUSCULAR HGB CONC 30.8 g/dl (32.0-36.5); MEAN CORPUSCULAR VOLUME 83.9 fl (80.0-96.0); MONO # 0.9 10^3/uL (0.0-0.8); MONO % 6.7 % (0.0-5.0); NEUTROPHILS # 9.5 10^3/uL (1.5-8.5); NEUTROPHILS % 68.4 % (36.0-66.0); PLATELET COUNT, AUTOMATED 493 10^3/uL (150-450); RED BLOOD COUNT 4.22 10^6/uL (4.00-5.40); WHITE BLOOD COUNT 13.9 10^3/uL (4.0-10.0)
[2020-02-23 12:54] LABS: ERYTHROCYTE SEDIMENTATION RATE 115 mm/hr (0-30)
--- NOTE | 2020-02-27 11:23 | CR ---
DATE OF CONSULTATION: 01/27/2020 Patient seen today, 01/27/2020, for evaluation of an ulceration surgical wound of her right foot. She has a history of transmetatarsal amputation of the right foot. She was recently hospitalized for osteomyelitis, where she had a surgical debridement performed. Patient also had surgical removal of hyperdermic needles in her foot. She has been being seen at the wound center for treatment of her wound, including wound vacuum-assisted closure (VAC) therapy. Her ulceration worsened, and she was admitted to the hospital for infection. She is seen today for evaluation. Patient's MRI of the right extremity was reviewed without and with contrast. Question osteomyelitis of the cuboid. Previous MRI also showed suspicious area of the cuboid. Films are not available to me for direct comparison; however, I feel this area was questioned in the past, and her foot has no increased temperature in that location or on a previous visit. There is no wound over her cuboid area. On evaluation of her foot, it does reveal an ulceration/surgical wound, distal aspect of the right foot. This surgical wound measures 12 cm x 7 cm x 3 cm in depth, extending down to the distal aspect of the 1st metatarsal. It does not extend to bone over the 2nd, 3rd, 4th, or 5th metatarsal. The wound does not extend into the cuboid area. There is no erythema over the cuboid. There is no increased temperature in that area. There was no abscess on exploration. Utilizing a Acosta dermal curette, after appropriate time-out and consent, an excisional debridement was performed through the skin and muscle in that area. This area was cultured before in the emergency room and is presently pending. There is some erythema on the dorsal aspect of her foot, but no abscess was seen. ASSESSMENT: Infected ulceration, right foot, with culture pending. PLAN: Informed consent was obtained, signed by the patient. Excisional debridement was made through the skin and muscular tissue. No bone was debrided. She is presently on vancomycin and Zosyn. This can be tailored according to her culture and sensitivity. In light of no increased temperature, no wound over the cuboid, osteomyelitis is not likely. Patient's questions were answered. Thank you for this consultation. JACOB
--- NOTE | 2020-03-12 12:52 | IPN ---
DATE: 01/31/2020 Iliana was seen after her peripherally inserted central catheter (PICC) line was placed. She is feeling well. She is receiving intravenous (IV) nafcillin 2 grams every 6 hours. She has no nausea or vomiting. She has mild diarrhea, but she usually has constipation and is pretty excited about the diarrhea. No fever or chills. No pain in her foot. She still has significant drainage, which is purulent in nature. PHYSICAL EXAMINATION: HEART: Normal S1, S2. No murmurs, rubs, or gallops. LUNGS: Clear. No wheezes, rales, or rhonchi. ABDOMEN: Morbidly obese, soft, nontender. EXTREMITIES: Bilateral transmetatarsal amputation. Right foot has an open incision diagonally, measuring about 9 cm, about 3 cm deep with purulent discharge. There is hypergranulation tissue. SKIN: Multiple excoriations from scratching and a few scabs. IMPRESSION: 1. Chronic osteomyelitis of the right foot with culture positive for methicillin-sensitive Staphylococcus aureus (MSSA), on IV nafcillin. I am very concerned about healing of that foot with a transmetatarsal amputation and her being able to walk on that foot. The patient understands that she has very low chance of healing but would like to try. She states that with prayer things will help. She wants to go to the retirement to be able to offload and be on IV antibiotics for a total of 6 weeks. 2. Insulin-dependent diabetes with poor compliance. 3. Morbid obesity. 4. Bilateral transmetatarsal amputation with difficulty offloading. PLAN: IV nafcillin 2 grams every 6 hours, but if they will not take her at the retirement with IV nafcillin every 6 hours infusion, 8 grams continuous infusion could be given over a 24-hour period. That may be another option. Please call me when retirement placement is being arranged so I can discuss choices of IV antibiotic. JACOB
--- NOTE | 2020-03-12 12:56 | IPN ---
DATE: 02/06/2020 SUBJECTIVE: Iliana seems to be doing well. She still has some diarrhea about three bowel movements a day. No nausea or vomiting. No abdominal pain. She continues complaining of itching around in the antecubital fossa and her shins. She was concerned that they had stated that she had bed bugs and she would like her clothes and her wheelchair back. She is being transferred to [facility] for continued IV antibiotics. OBJECTIVE: HEART: Normal S1, S2. No murmurs. LUNGS: Clear. No wheezing, rales or rhonchi. ABDOMEN: Morbidly obese, soft, and nontender. EXTREMITIES: Scabs on both shins. Dry with no vesicles. No purulence. Both antecubital fossa are erythematous and pruritic. Oropharynx is clear. Left foot had an open incision with minimal purulent discharge. Incision is about 9 cm across the foot where there was a transmetatarsal amputation. IMPRESSION: Chronic osteomyelitis of the right foot with culture positive for methicillin- sensitive Staphylococcus aureus (MSSA) on intravenous (IV) nafcillin 2 grams every six hours. Rash. Consulted dermatology. Doubt bed begs or scabies. Obesity and insulin-dependent diabetes poorly controlled. PLAN: CBC, CMP, ESR, and CRP to be done today. Dermatology was consulted. Dr. Noland saw the patient. He ordered triamcinolone twice a day. He thinks she has a chlorhexidine allergy and does not believe she has scabies or bed bugs. Transfer to [facility] in the a.m. MTDD
--- NOTE | 2020-03-16 08:00 | REP ---
PICC LINE INSERTION WITH SITE-RITE: The procedure was performed under the direct supervision of Dr. Sandhu. PROCEDURE: The risks and benefits of the procedure were explained to the patient and informed consent was obtained. The right basilic vein was localized using ultrasound guidance. The skin was prepped and draped in a sterile fashion. 1% lidocaine was used as a local anesthetic. Using ultrasound guidance, the basilic vein was cannulated and a 0.018 guidewire was inserted, however it was unable to be advanced much past the end of the sheath. This may be due to spasm or scar tissue. The needle was then removed. The right brachial vein was localized using ultrasound guidance. 1% lidocaine was used as a local anesthetic. Using ultrasound guidance, the brachial vein was cannulated and a 0.018 guidewire was inserted and advanced to the SVC using fluoroscopic guidance. The needle was removed and a 4.5 Jamaican dilator and peel- away sheath was inserted over the guidewire. A 4.5 Jamaican single lumen catheter was cut to a length of 37 cm. The dilator was removed and the catheter was inserted, however it was unable to be advanced beyond the level of the axillary region. Multiple attempts were tried. It was then decided to make the catheter a midline catheter. The catheter was cut to a length of 16 cm. The catheter was inserted over the guidewire with the tip ending at the junction of the right brachial vein and axillary vein. The peel-away sheath was removed and the catheter was flushed with heparinized saline as per hospital protocol. The catheter was affixed to the skin and a sterile dressing was applied. The patient tolerated the procedure well and there were no immediate complications. 4.1 minutes of fluoroscopy time was utilized for this procedure. JACOB
[2020-03-19 10:30] LABS: BASO # 0.1 10^3/uL (0.0-0.2); BASO % 1.1 % (0.0-1.0); EOS # 0.3 10^3/uL (0.0-0.5); EOS % 3.6 % (0.0-3.0); HEMATOCRIT 32.1 % (36.0-47.0); HEMOGLOBIN 9.4 g/dl (12.0-15.5); LYMPH # 2.8 10^3/uL (1.5-5.0); MEAN CORPUSCULAR HEMOGLOBIN 25.3 pg (27.0-33.0); MEAN CORPUSCULAR HGB CONC 29.3 g/dl (32.0-36.5); MEAN CORPUSCULAR VOLUME 86.5 fl (80.0-96.0); MONO # 0.8 10^3/uL (0.0-0.8); MONO % 8.5 % (0.0-5.0); NEUTROPHILS # 5.3 10^3/uL (1.5-8.5); NEUTROPHILS % 55.9 % (36.0-66.0); PLATELET COUNT, AUTOMATED 434 10^3/uL (150-450); RED BLOOD COUNT 3.71 10^6/uL (4.00-5.40); WHITE BLOOD COUNT 9.4 10^3/uL (4.0-10.0)
[2020-03-20 06:36] LABS: HEMATOCRIT 31.3 % (36.0-47.0); HEMOGLOBIN 9.5 g/dl (12.0-15.5); MEAN CORPUSCULAR HEMOGLOBIN 25.4 pg (27.0-33.0); MEAN CORPUSCULAR HGB CONC 30.4 g/dl (32.0-36.5); MEAN CORPUSCULAR VOLUME 83.7 fl (80.0-96.0); PLATELET COUNT, AUTOMATED 478 10^3/uL (150-450); RED BLOOD COUNT 3.74 10^6/uL (4.00-5.40); WHITE BLOOD COUNT 8.8 10^3/uL (4.0-10.0)
--- NOTE | 2020-03-20 08:41 | REP ---
PICC LINE INSERTION WITH OSCAR The procedure was performed under the direct supervision of Dr. Sandhu. The risks and benefits of the procedure were explained to the patient and informed consent was obtained. PROCEDURE: The left basilic vein was localized using ultrasound guidance. The skin was prepped and draped in a sterile fashion. 1% lidocaine was used as a local anesthetic. Using ultrasound guidance, the basilic vein was cannulated and a 0.018 guidewire was inserted and advanced to the SVC using fluoroscopic guidance. The needle was removed and a 4.5 Eritrean dilator and peel-away sheath was inserted over the guidewire. A 4.5 Eritrean single lumen catheter was cut to a length of 43 cm. The dilator was removed and the catheter was inserted over the guidewire with the tip ending in the SVC. The peel-away sheath was removed and the catheter was flushed with heparinized saline as per hospital protocol. The catheter was affixed to the skin and a sterile dressing was applied. The patient tolerated the procedure well and there were no immediate complications. 0.3 minutes of fluoroscopy time was utilized for this procedure. JACOB
[2020-03-28 08:12] LABS: HEMATOCRIT 34.7 % (36.0-47.0); HEMOGLOBIN 10.5 g/dl (12.0-15.5); MEAN CORPUSCULAR HEMOGLOBIN 25.4 pg (27.0-33.0); MEAN CORPUSCULAR HGB CONC 30.3 g/dl (32.0-36.5); MEAN CORPUSCULAR VOLUME 83.8 fl (80.0-96.0); PLATELET COUNT, AUTOMATED 455 10^3/uL (150-450); RED BLOOD COUNT 4.14 10^6/uL (4.00-5.40); WHITE BLOOD COUNT 10.8 10^3/uL (4.0-10.0)
[2020-03-28 10:47] LABS: ERYTHROCYTE SEDIMENTATION RATE 65 mm/hr (0-30)
[2020-04-06 11:55] LABS: ALBUMIN 2.8 GM/DL (3.2-5.2); ALT/SGPT 20 IU/L (0-32); BILIRUBIN,DIRECT < 0.1 MG/DL (0.0-0.2); BILIRUBIN,TOTAL 0.3 MG/DL (0.2-1.0); CK-MB VALUE MASS < 1.0 NG/ML (<3.6); CPK CREATINE PHOSPHOKINASE 40 U/L (26-192); TOTAL PROTEIN 7.6 GM/DL (6.4-8.2); TROPONIN I < 0.02 NG/ML (< 0.10)
[2020-04-06 11:56] LABS: GLUCOSE, FASTING 322 MG/DL (70-100)
[2020-04-06 11:57] LABS: BLOOD UREA NITROGEN 17 MG/DL (7-18); CALCIUM LEVEL 9.4 MG/DL (8.5-10.1); CARBON DIOXIDE LEVEL 25 mmol/L (20-29); CHLORIDE LEVEL 101 MEQ/L (98-107); GLOMERULAR FILTRATION RATE > 60.0 (>51); HEMOGLOBIN A1c 8.8 %; POTASSIUM SERUM 4.5 MEQ/L (3.5-5.1); SODIUM LEVEL 134 MEQ/L (136-145)
[2020-04-07 07:02] LABS: ALBUMIN 2.4 GM/DL (3.2-5.2); ALT/SGPT 16 U/L (12-78); BILIRUBIN,TOTAL 0.3 MG/DL (0.2-1.0); BLOOD UREA NITROGEN 18 MG/DL (7-18); CALCIUM LEVEL 8.7 MG/DL (8.5-10.1); CARBON DIOXIDE LEVEL 25 MEQ/L (21-32); CHLORIDE LEVEL 105 MEQ/L (98-107); CREATININE FOR GFR 0.91 MG/DL (0.55-1.30); GLOMERULAR FILTRATION RATE > 60.0 (>51); GLUCOSE, FASTING 328 MG/DL (70-100); POTASSIUM SERUM 4.5 MEQ/L (3.5-5.1); SODIUM LEVEL 140 MEQ/L (136-145); TOTAL PROTEIN 6.7 GM/DL (6.4-8.2)
[2020-04-22 11:20] LABS: BLOOD UREA NITROGEN 15 MG/DL (7-18); CALCIUM LEVEL 8.8 MG/DL (8.5-10.1); CARBON DIOXIDE LEVEL 26 MEQ/L (21-32); CHLORIDE LEVEL 105 MEQ/L (98-107); GLOMERULAR FILTRATION RATE > 60.0 (>51); GLUCOSE, FASTING 350 MG/DL (70-100); POTASSIUM SERUM 4.4 MEQ/L (3.5-5.1); SODIUM LEVEL 137 MEQ/L (136-145)
[2020-04-27 06:37] LABS: ALBUMIN 2.4 GM/DL (3.2-5.2); ALT/SGPT 75 U/L (12-78); BILIRUBIN,TOTAL 0.3 MG/DL (0.2-1.0); BLOOD UREA NITROGEN 10 MG/DL (7-18); CALCIUM LEVEL 9.2 MG/DL (8.5-10.1); CARBON DIOXIDE LEVEL 26 MEQ/L (21-32); CHLORIDE LEVEL 106 MEQ/L (98-107); GLOMERULAR FILTRATION RATE > 60.0 (>51); GLUCOSE, FASTING 264 MG/DL (70-100); MAGNESIUM LEVEL 1.8 MG/DL (1.8-2.4); POTASSIUM SERUM 4.3 MEQ/L (3.5-5.1); SODIUM LEVEL 139 MEQ/L (136-145); TOTAL PROTEIN 6.6 GM/DL (6.4-8.2)
[2020-05-01 04:11] LABS: ALBUMIN 2.8 GM/DL (3.2-5.2); ALT/SGPT 33 U/L (12-78); BILIRUBIN,TOTAL 0.3 MG/DL (0.2-1.0); BLOOD UREA NITROGEN 18 MG/DL (7-18); C REACTIVE PROTEIN QUANTITATIV 1.67 MG/DL (0.00-0.30); CALCIUM LEVEL 9.4 MG/DL (8.5-10.1); CARBON DIOXIDE LEVEL 27 MEQ/L (21-32); CHLORIDE LEVEL 105 MEQ/L (98-107); GLOMERULAR FILTRATION RATE > 60.0 (>51); GLUCOSE, FASTING 250 MG/DL (70-100); POTASSIUM SERUM 4.3 MEQ/L (3.5-5.1); SODIUM LEVEL 137 MEQ/L (136-145); TOTAL PROTEIN 7.6 GM/DL (6.4-8.2)
== END 2020-02-08 09:45 | DRG 344 ==
LOC: M ED 09:25 → M MS5PR 19:40
PROVIDERS: ADMIT Internal Medicine; ATTEND Internal Medicine
PROC: 02HV33Z Insertion of Infusion Device into Superior Vena Cava, Percutaneous Approach (ICD-10-PCS; principal; 2020-01-27)
DX: E11.621 Type 2 diabetes mellitus with foot ulcer (principal); M86.471 Chronic osteomyelitis with draining sinus, right ankle and foot; L03.115 Cellulitis of right lower limb; E66.01 Morbid (severe) obesity due to excess calories; E11.69 Type 2 diabetes mellitus with other specified complication; L97.519 Non-pressure chronic ulcer of other part of right foot with unspecified severity; Z79.4 Long term (current) use of insulin; Z91.14 Patient's other noncompliance with medication regimen; B95.61 Methicillin susceptible Staphylococcus aureus infection as the cause of diseases classified elsewhere; I10 Essential (primary) hypertension; R19.7 Diarrhea, unspecified; L20.9 Atopic dermatitis, unspecified

== ENCOUNTER → 2020-03-13 | Outpatient (CLI) | payer OTHER ==
[2020-03-13 17:49] LABS: BLOOD UREA NITROGEN 27 MG/DL (7-18); C REACTIVE PROTEIN QUANTITATIV 5.26 MG/DL (0.00-0.30); CARBON DIOXIDE LEVEL 26 MEQ/L (21-32); CHLORIDE LEVEL 103 MEQ/L (98-107); CREATININE FOR GFR 0.86 MG/DL (0.55-1.30); GLOMERULAR FILTRATION RATE > 60.0 (>51); GLUCOSE, FASTING 242 MG/DL (70-100); POTASSIUM SERUM 4.8 MEQ/L (3.5-5.1); SODIUM LEVEL 137 MEQ/L (136-145)
[2020-03-13 17:53] LABS: BASO # 0.2 10^3/uL (0.0-0.2); BASO % 1.6 % (0.0-1.0); EOS # 0.3 10^3/uL (0.0-0.5); EOS % 2.4 % (0.0-3.0); HEMATOCRIT 35.7 % (36.0-47.0); HEMOGLOBIN 10.8 g/dl (12.0-15.5); LYMPH # 3.2 10^3/uL (1.5-5.0); LYMPH % 30.6 % (24.0-44.0); MEAN CORPUSCULAR HEMOGLOBIN 24.9 pg (27.0-33.0); MEAN CORPUSCULAR HGB CONC 30.3 g/dl (32.0-36.5); MEAN CORPUSCULAR VOLUME 82.4 fl (80.0-96.0); MONO # 0.9 10^3/uL (0.0-0.8); MONO % 8.6 % (0.0-5.0); NEUTROPHILS # 5.9 10^3/uL (1.5-8.5); NEUTROPHILS % 56.2 % (36.0-66.0); PLATELET COUNT, AUTOMATED 492 10^3/uL (150-450); RED BLOOD COUNT 4.33 10^6/uL (4.00-5.40); WHITE BLOOD COUNT 10.5 10^3/uL (4.0-10.0)
[2020-03-13 18:31] LABS: ERYTHROCYTE SEDIMENTATION RATE 79 mm/hr (0-30)
== END ==
LOC: M PLALAB 13:58
PROVIDERS: ATTEND Internal Medicine Infectious Disease
DX: M86.9 Osteomyelitis, unspecified (principal)

== ENCOUNTER → 2020-07-16 | Outpatient (REF) | payer OTHER ==
[~2020-07-16] MED LIST changes: +ADME100I SC; +AMLO1TAB25 PO; +ASPI1TAB8 PO; -CLIN150C14 PO; +CLIN150C15 PO; +GABA-282 PO; -GABA-843 PO; +LEVO750T13 PO; +LEVOTAB10 PO; -LISI-538 PO; -LISI-542 PO; +LISI-898 PO; +LISI20TA33 PO; +LOSA100T50 PO; -MAG400TA PO; +MAGN400T35 PO; +SPIR-10 PO; +ZOSY1SOL4 IV
[2020-07-16 13:40] LABS: BASO # 0.1 10^3/uL (0.0-0.2); BASO % 0.4 % (0.0-1.0); EOS # 0.2 10^3/uL (0.0-0.5); EOS % 0.8 % (0.0-3.0); HEMATOCRIT 32.5 % (36.0-47.0); HEMOGLOBIN 9.5 g/dl (12.0-15.5); LYMPH # 2.6 10^3/uL (1.5-5.0); LYMPH % 11.8 % (24.0-44.0); MEAN CORPUSCULAR HEMOGLOBIN 23.7 pg (27.0-33.0); MEAN CORPUSCULAR HGB CONC 29.2 g/dl (32.0-36.5); MONO # 1.6 10^3/uL (0.0-0.8); MONO % 7.2 % (0.0-5.0); NEUTROPHILS # 16.7 10^3/uL (1.5-8.5); NEUTROPHILS % 76.9 % (36.0-66.0); PLATELET COUNT, AUTOMATED 545 10^3/uL (150-450); RED BLOOD COUNT 4.01 10^6/uL (4.00-5.40); WHITE BLOOD COUNT 21.7 10^3/uL (4.0-10.0)
[2020-07-16 14:25] LABS: ALBUMIN 2.1 GM/DL (3.2-5.2); BILIRUBIN,TOTAL 0.3 MG/DL (0.2-1.0); C REACTIVE PROTEIN QUANTITATIV 32.1 MG/DL (0.00-0.30); CALCIUM LEVEL 8.9 MG/DL (8.5-10.1); CREATININE FOR GFR 1.11 MG/DL (0.55-1.30); GLOMERULAR FILTRATION RATE 54.7 (>51); POTASSIUM SERUM 4.5 MEQ/L (3.5-5.1); TOTAL PROTEIN 6.7 GM/DL (6.4-8.2)
[2020-07-16 14:36] LABS: ERYTHROCYTE SEDIMENTATION RATE 126 mm/hr (0-30)
== END ==
LOC: M SFHCPLAZ 09:24
PROVIDERS: ATTEND Internal Medicine Infectious Disease
DX: R50.9 Fever, unspecified (principal)
CPT/HCPCS: 36415; 80053; 85025; 85652; 86140; 87070; 87077; 87186; 87205; U0003

== ENCOUNTER 2020-07-17 14:49 | Inpatient (IN) | payer OTHER ==
[~2020-07-17] VITALS: Ht 157.5 cm; Wt 110.7 kg
[~2020-07-17 14:49] MED LIST changes: -ADME100I SC; -AMLO1TAB25 PO; -ASPI1TAB8 PO; -LEVO750T13 PO; -LEVOTAB10 PO; +LISI-538 PO; +LISI-542 PO; -LISI-898 PO; -LISI20TA33 PO; -LOSA100T50 PO; +MAG400TA PO; -MAGN400T35 PO; -SPIR-10 PO; -ZOSY1SOL4 IV
[2020-07-17] MEDS ORDERED: NS 1,000 ML IV ONE (15:45)
[2020-07-17 16:10] LABS: BASO # 0.1 10^3/uL (0.0-0.2); BASO % 0.4 % (0.0-1.0); EOS # 0.1 10^3/uL (0.0-0.5); EOS % 0.6 % (0.0-3.0); HEMATOCRIT 29.3 % (36.0-47.0); HEMOGLOBIN 8.8 g/dl (12.0-15.5); LYMPH # 3.1 10^3/uL (1.5-5.0); LYMPH % 16.9 % (24.0-44.0); MEAN CORPUSCULAR HEMOGLOBIN 23.6 pg (27.0-33.0); MEAN CORPUSCULAR VOLUME 78.6 fl (80.0-96.0); MONO # 1.5 10^3/uL (0.0-0.8); MONO % 8.1 % (0.0-5.0); NEUTROPHILS # 12.8 10^3/uL (1.5-8.5); NEUTROPHILS % 70.4 % (36.0-66.0); PLATELET COUNT, AUTOMATED 519 10^3/uL (150-450); RED BLOOD COUNT 3.73 10^6/uL (4.00-5.40); WHITE BLOOD COUNT 18.2 10^3/uL (4.0-10.0)
[2020-07-17 16:39] LABS: ERYTHROCYTE SEDIMENTATION RATE > 140 mm/hr (0-30)
--- NOTE | 2020-07-17 16:44 | REP ---
INDICATION: L foot pain/drainage. COMPARISON: No comparison left foot radiographs.. TECHNIQUE: Four views. FINDINGS: Four views of the left foot demonstrate a prior transmetatarsal amputation of the forefoot. The entire 5th metatarsal has been removed. There is diffuse soft tissue swelling about the stump and midfoot. There is soft tissue emphysema in the medial soft tissues at midfoot level. There is a 2 cm focal deficit in the soft tissues adjacent to the remaining 1st metatarsal along the plantar aspect consistent with a large plantar ulcer. Plantar and Achilles calcaneal heel spurs are noted. There is some midfoot osteoarthritic change. No acute bony erosive changes are noted.. No fracture or subluxation is seen. No opaque foreign body noted. IMPRESSION: Diffuse soft tissue swelling. There is soft tissue emphysema in the swollen medial soft tissues at midfoot level. A 2 cm focal soft tissue ulcer is seen along the plantar aspect. Patient is status post transmetatarsal forefoot amputation. Osteoarthritic changes are noted. No acute erosive changes are seen. No opaque foreign body noted.. <Electronically signed by Fredo Sandhu > 07/17/20 [id number]
--- OUTSIDE RECORDS SUMMARY | 2020-07-17 17:00 | CCD ---
Author Author [facility] Organization [facility] Address Unknown Phone Unavailable Care Team Providers Care Systems Specialist Name Role Phone Saundra Carlos Unavailable PROBLEMS Type Condition ICD9-CM Code [id number] Code Onset Dates Condition S tatus SNOMED Code Notes Problem Bipolar affective disorder, currently depressed, moderate F31.32 Active 246879070 Problem Group B streptococcal infection A49.1 Active 004837895 Problem Vaginal candidiasis B37.3 Active 33841536 Problem UTI (urinary tract infection) N39.0 Active 68 313183 Problem Major depression F32.9 Active 666600953 Problem Cervical cancer screening Z12.4 Active 321804 001 Problem Breast cancer screening Z12.39 Active 96392983 6 Problem Pure hypercholesterolemia E78.00 Active 111907 004 Problem Postoperative infection T81.4XXA Active 5562253 7 Problem Amputation at midfoot, right, sequela S98.311S A ctive 177910510 Problem Chronic diabetic ulcer of left foot determined by exam ination E11.621 Active 4894204045047 Problem Osteomyelitis of foot, right, acute M86.171 Acti ve 00834528 Problem Eczema, unspecified type L30.9 Active 1927472 0 Problem Type 2 diabetes mellitus with diabetic neuropathy E11.40 Active 0878369580764 Problem History of osteomyelitis Z87.39 Active 3649610 00 Problem Acute cystitis with hematuria N30.01 Active 81 071278 Problem Diabetic peripheral neuropathy E11.42 Active 4 78728068 Problem Dysuria R30.0 Active 37605384 Problem HTN (hypertension) I10 Active 66208851 Problem JOHN (generalized anxiety disorder) F41.1 Activ e 14799640 Problem Morbid obesity due to excess calories E66.01 Ac tive 669643318 Problem Neurotic excoriations L98.1 Active 48736997 Problem MRSA infection A49.02 Active 732685953 Problem 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.471 Active 340087649662486 Problem Disruption of internal opera tion (surgical) wound, not elsewhere classified, initial encounter T81.32XA Active 522647 008 Problem Myalgia M79.1 Active 09301051 Problem Acute hematogenous osteomyelitis, right ankle and foot M86.071 Active 920051620 Problem Maculopapular rash R21 Active 949652859 Problem Non-healing amputation site T87.89 Active 2402 41894 Problem Type 2 diabetes mellitus with foot ulcer E11.621 Active 732756784 Problem Foot abscess, right L02.611 Active 701623750325 31080 Problem Type 2 diabetes mellitus with other specified complication E11.69 Active 95275786 Problem MSSA (methicillin susceptible Staphylococcus aureus) A49.01 Active 360391632 Problem Phantom limb pain G54.6 Active 5147800351095 Problem Chronic osteomyelitis of right foot M86.671 Acti ve 585922990 Problem Non-pressure chronic ulcer o f other part of right foot with fat layer exposed L97.512 Active 684143913 Problem Non-pressure chronic ulcer o f other part of left foot with fat layer exposed L97.522 Active 963149830 Problem Obesity E66.9 Active 841543886 Problem Calcaneal spur, right foot M77.31 Active 90261 5909605384 Problem Non-pressure chronic ulcer o f other part of right foot limited to breakdown of skin L97.511 Active 493930599 ALLERGIES Allergen (clinical drug ingredient) Drug/Non Drug Allergy do cumented on EMR Reaction Allergy Type Onset Date Status Sudafed([facility] Code:[address]-23) Hives Drug Allergy Active Trazodone 100 Hives Drug Allergy Active cefprozil Cefprozil([facility] Code:[address]-03) Hives Drug Allergy Active fluoxetine Prozac Hives Drug Allergy Active ENCOUNTERS from 1967 to 2020-07-02 Encounter Location Date Provider Diagnosis [facility] [address] [place] [address] May Saundra Carlos Type 2 diabetes mellitus with foot ulcer E11.621 ; Non-pressure chronic ulcer of other part of right foot with fat layer exposed L97.512 and Non- pressure chronic ulcer of other part of left foot with fat layer exposed L97.522 IMMUNIZATIONS Vaccine Route Administration Date Status Influenza (Pharmacy Given) Unknown Apr 11, 2020 Refus ed Influenza (18 yrs & older) Flublok Unknown Apr 12, 2019 Administered Influenza (6mo & up) Fluzone IM Intramuscular Apr 01, 2016 Ad ministered Influenza (6mo & up) Fluzone IM Intramuscular Mar 22, 2012 Ad ministered SOCIAL HISTORY Tobacco Use: Social History Observation Description Date Details (start date - stop date) Never Smoker Sex Assigned At : Social History Observation Description Sex Assigned At Unknown Education: Question Answer Notes Level of Education: Not finished High School 8th grade Language: Question Answer Notes Languages spoken: Sami BMI Care Goal Follow-Up Question Answer Notes Above Normal BMI Follow-Up Dietary management educatio n, guidance, and counseling Tobacco Use: Question Answer Notes Are you a: never smoker REASON FOR REFERRAL No Information VITAL SIGNS Weight 252 lbs May, Weight-kg PER PT kg May, Height 62 in May, BMI 46.09 kg/m2 May, Heart Rate 95 /min May, Respiratory Rate 18 /min May, Temperature 97.6 degrees Fahrenheit May, Oximetry 97 May, Blood pressure systolic 137 mm Hg May, Blood pressure diastolic 62 mm Hg May, MEDICATIONS Medication SIG (Take, Route, Frequency, Duration) Notes Start Da te End Date Status Humalog KwikPen 100 UNIT/ML 20units or < per sliding s [place] Subcutaneous tid c meals for 30 day(s) Not-Taking Gabapentin 300 MG 1 capsule Orally three times a day Active Cymbalta 60 MG 1 capsule Orally Daily Active Kerlix Gauze Roll Large - as directed topically Daily for 30 day (s) Mar, Active Metformin HCl 1000 MG take one tablet by mouth 2 times a day Orally Active Terconazole 0.8 % 1 applicatorful at bedtime Vaginal Once a day for 3 day(s) Not-Taking Bactrim DS 800-160 1 tablet orally twice a day for 10 days October, Not-Taking Ibuprofen 600 MG 1 tablet with food or milk as needed Orally Amisha ly as needed Active Aspirin 81 MG 1 tablet Orally Once a day for 30 day(s) Active Dicloxacillin Sodium 500 MG 1 capsule 1 hour before or 2 hours after meals Orally every 6 hrs for 10 day(s) Mar, Active Trulicity 1.5 MG/0.5ML as directed Subcutaneous Active Levocetirizine Dihydrochloride 5 MG 1 tablet in the ev ening Orally Once a day for 30 day(s) Active Fluconazole 100 MG 1 tablet Orally for 10 day(s) Mar, 020 Active Lasix 40 MG 1 tablet Orally Once a day for 30 day(s) Active Doxycycline Hyclate 100 MG 1 tablet Orally twice a day for 10 da y(s) October, Not-Taking HydrOXYzine HCl 25 MG 1 tablet as needed Orally tw ice a day as needed for 30 Days Active Multivitamin 1 tab Orally daily Acti ve One Touch Delica 33 gauge 1 lancet _ 5 times daily as needed for 30 days Jun, Active Triamcinolone Acetonide 0.1 % 1 application Externally Twice a day for 30 Days Active Amoxicillin-Pot Clavulanate 875-125 MG 1 tablet Orally every 12 hrs for 14 day(s) Not-Taking Gauze Bandage 4" as directed topically twice daily for 1 month Active Toujeo SoloStar 300 UNIT/ML 63units bid Subcutaneous bid for 30 days Not-Taking Saline 0.9 % q.s. 60ml topically Daily for 30 day(s) 2017 Not-Taking Gauze Bandage 4" as directed topically twice daily for 1 month Mar, Active October Have - Vasagar 55 units subcutaneously twice daily Active Levaquin 750 MG 1 tablet Orally Once a day for 30 day(s) Not-Taking Toujeo Insulin Injection 300 ml 63 units subcutaneously bid Not-Taking AmLODIPine Besylate 10 MG 1 tablet Orally Once a day Active Admelog 100 UNIT/ML as directed Subcutaneous before meals Active Atorvastatin Calcium 10 MG 1 tab Orally Once a day for 30 days Active BD Pen Needle Mini U/F 31G X 5 MM as directed subcutan eously 6x /day for 30 days Active Macrobid 100 MG Orally every 12 hrs May, Not-Taking Paper Tape 1"x12yd - as directed topically Daily for 30 day(s) Active Kerlix Bandage Roll 4.5"x9.3' - as directed topically Daily for 30 da y(s) Active Losartan Potassium 100 MG 1 tablet Orally Once a day Active Lisinopril 10 MG 1 tablet Orally Once a day for 30 day(s) Not-Taking Ascorbic Acid 500 MG 1 tablet Orally Once a day Not-Taking OneTouch Verio - as directed In Vitro five times daily as needed for 30 days Active PROCEDURES from 1967 to 2020-07-02 Procedure Date Ordered Result Body Site LIDOCAINE 4% CREAM TOPICAL 2020-06-27 N/A RESULTS No Results REASON FOR VISIT BLE WOUNDS MEDICAL (GENERAL) HISTORY Type Description Date Medical History insulin-dependent diabetes with diabetic neuropathy Medical History chronic osteomyelitis of the right big toe admission 11/11 2011 on IV daptomycin for 6 weeks, culture polymicrobial MSSA strep mitis E. 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 Medical History morbid obesity weight 350 now 248 12/2015 Medical History Chronic osteomyelitis, ankle and foot ri ght Medical History MRI osteomyelitis of the fir st metatarsal right foot cellulitis and abscess of the foot culture positive for MSSA and group B strep and strep mitis 08/2014 Medical History MRI of the right foot done 06/15/15 no o steomyelitis cellulitis Medical History Tobacco abuse quit 04/2015 Medical History Chronic osteo Rt transmet si te MRSA on culture 12/11/17 Bactrim for 1 month then Dalvance 01/22 and 02/01/18 Surgical History Great right toe amputation 03/2013 Surgical History right 3rd toe amputation 01/2016 Surgical History right foot partial amputation 06/2015 Surgical History amputated remaining Right 3 toes 2nd, 4th, 5th, resected metatarsal bones 06/2015 Surgical History L transmetatarsal amputation of 5th, fin al toe on L 01/2014 Surgical History s/p tubal ligation Surgical History s/p L 2nd toe disarticulation at [facility],amp utation 05/09/2013 Surgical History C Section 04/2000 Surgical History Cholecystectomy 07/2009 Surgical History removed bone from right foot/ debridemen t of wound 01/12 Surgical History right foot big toe removed 03/12/2018 Surgical History jaw surgery 05/2019 Surgical History Removal of foreign body right foot at [facility] (2 embedded needles) 12/01/19 Hospitalization History [facility]- INFECTION LEFT FOOT 07/2013 Hospitalization History right foot infection 09/2014 Hospitalization History right 3rd toe amputation 01/2016 Hospitalization History right foot infection - MSSA 05/2015 Hospitalization History foot infection 08/2015 Hospitalization History Left transmetatarsal amputation 02/15 14 Hospitalization History L 2nd toe osteomyelitis, amputation 04/2013 Hospitalization History L 2nd toe cellulitis 01/2013 Hospitalization History R great toe osteomyelitis 10/2011 Hospitalization History L foot cellulitis 04/2010 Hospitalization History L 3rd toe osteomyelitis 07/2013 Hospitalization History R foot cellulitis c poss. os teomyelitis c MRSA, s/p transmetatarsal amputation 06/2015 Hospitalization History Osteomyelitis involving Rt. foot, resolving, s/p transmet. amp. c residual osteomyelitis, c wound vac, iv vanco, [facility] Hospitalization History Left femur fx Hospitalization History right foot toe removal 03/12/2018 Hospitalization History right foot infection 10/2019 Goals Section No Information Health Concerns No Information MEDICAL EQUIPMENT No Information MENTAL STATUS No Information FUNCTIONAL STATUS No Information ASSESSMENTS Encounter Date Diagnosis Assessment Notes Treatment Notes Treatm ent Clinical Notes May, Type 2 diabetes mellitus with foot ulcer (ICD-10 - E11.621) Dressing changes 3X week. The dressing should follow those documented in the procedure note May, Non-pressure chronic ulcer o f other part of right foot with fat layer exposed (ICD-10 - L97.512) May, Non-pressure chronic ulcer o f other part of left foot with fat layer exposed (ICD-10 - L97.522) May, Other SALINE LOT XM14 8 EXP 04/19 USED BY CRISTIANA TO APPLY TISSUE PRODUCT PLAN OF TREATMENT Medication Medication Name Sig Start Date Stop Date Dicloxacillin Sodium 500 MG 1 capsule 1 hour before or 2 hours after meals Orally every 6 hrs for 10 day(s) Mar, Treatment Notes Assessment Notes Clinical Notes Type 2 diabetes mellitus with foot ulcer Dressing mooney ges 3X week. The dressing should follow those documented in the procedure note Next Appt Details 1 Week Reason: Provider Name:Saundrajessica Carlos, 07-11 08:00:00 AM, [address] [place], [address], Insurance Providers Payer Name Payer Address Payer Phone Insured Name Patient Relati onship to Insured Coverage Start Date Coverage End Date [facility] [employer] [facility] [address] [facility] [phone] KIYA ORTIZ self
--- OUTSIDE RECORDS SUMMARY | 2020-07-17 17:00 | CCD | Continuity of Care Document ---
Author Author Iliana SERRANO MD Organization Unknown Address [address] [place] [address] Phone [phone] Care Team Providers Care Refining Engineer Name Role Phone [facility] [phone] [facility] AUTM [phone] Arnulfo Wilson MD AUTM [phone] Carla Garcia AUTM [phone] Brittni Serrano MD AUTM [phone] Problems Active Problems Provider Date Type II diabetes mellitus uncontrolled Brittni Serrano MD Onset: 09/22/2018 Essential hypertension Brittni Serrano MD Onset: 09/23/19 19 Hyperlipidemia Brittni Serrano MD Onset: 09/22/2018 Shoulder joint pain Brittni Serrano MD Onset: 10/12/2018 Chronic ulcer of foot Brittni Serrano MD Onset: 9 Note: right foot chronic ulcer being rylan ated by Dr. August. Obesity Brittni Serrano MD Onset: 06/23/2019 Histological finding Brittni Serrano MD Onset: 06/23/2019 Amputated forefoot Brittni Serrano MD Onset: 06/23/2019 Social History Type Date Description Comments Sex Unknown Tobacco Use Start: Unknown End: Unknown Quit Tobacco Use Start: Unknown Never Smoked Cigars Tobacco Use Start: Unknown Never Smoked A Pipe Tobacco Use Start: Unknown Never Used Smokeless Tobacco ETOH Use Denies alcohol use Tobacco Use Start: Unknown End: Unknown Patient is a former smoker Recreational Drug Use Formerly used Marijuana sp oradically Exercise Type/Frequency Exercises regularly Mj chi- every day Smoke Alarms Yes Smoke Alarms Carbon Monoxide Detector: Yes Allergies, Adverse Reactions, Alerts Active Allergies Reaction Severity Comments Date Trazodone Hives Moderate 08/20/2018 Prozac Hives Moderate 08/20/2018 Sudafed Hives Moderate 08/20/2018 Cefazolin Hives Severe 11/09/2018 Medications Active Medications SIG Qnty Indications Ordering Provide r Date Spironolactone 25mg Tablets 1 tablet by mouth daily in the morning 30tabs I10 Brittni Serrano MD 04/03/2020 Seat Rails For Toilet Brittni queen MD 12/20/2019 Gabapentin 300mg Capsules take 1 capsule by mouth three times a day 180caps Brittni Serrano MD 12/13/2019 Amlodipine Besylate 10mg Tablets 1 by mouth every day 90tabs Brittni Serrano MD 12/13/2019 Aspirin Adult Low Dose 81mg Tablet s DR 1 by mouth every day 90tabs Brittni Serrano MD 020 Glucometer Device test blood glucose three times daily 1units Brittni Serrano MD 06/29/19 20 Pen [place] 3/16" 31G X 5 mm Misc use with insulin pen 180units Brittni Serrano MD 04/13/2019 Atorvastatin Calcium 40mg Tablets 1 by mouth every day at bedtime 90tabs Brittni Serrano MD 09/16/2018 Insulin Syringe/Needle 0.5ML/30G X 5/16" 30G X 5/16" 0.5 ML Misc use as directed with admelog three times a day 180units Brittni Serrano MD 08/30/2018 Onetouch Verio Strips as directed four times daily 200units Brittni Serrano MD 08/30/2018 Basaglar Kwikpen 100 Unit/ML Solution Pen-Inject inject 55 units under the skin before breakfast and dinner 30uni ts E11.65 Brittni Serrano MD 08/20/2018 Metformin HCL 1000mg Tablets take one tablet by mouth twice a day 60tabs E11.65 Grace Kimbrough Admelog 100Unit/ML Solution 12 units with each meal subcutaneously. Extra units as per sliding scale 30ml E11.65 Brittni Serrano MD Duloxetine HCL 60mg Caps DR Alex take one capsule by mouth every day 30caps E11.65 Brittni Serrano MD Trulicity 1.5mg/0.5ML Solution Pen -Inject inject 0.5ml subcutaneously once weekly 2units Brittni carmichael MD Dicloxacillin Sodium 500mg Capsules Heaven Thomas, Hydralazine HCL 10mg Tablets take one-half tablet by mouth twice daily Unknown History Medications Losartan Potassium 100mg Tablets 1 by mouth every day 90tabs I10 Brittni Serrano MD 12/13/2019 - 04/18/2020 Immunizations CPT Code Status Date Vaccine Lot # [id number] Given 04/13/2019 Influenza (>= 6 Months) P.F. Vaccine [id number] Vital Signs Date Vital Result Comment 04/18/2020 1:34pm BP Systolic 130 mmHg BP Diastolic 70 mmHg Heart Rate 97 /min Body Temperature 97.5 F Respiratory Rate 16 /min O2 % BldC Oximetry 98 % Weight 252.00 lb Stated weight Weight 114.307 kg Height 63 inches 5'3" BMI (Body Mass Index) 44.6 kg/m2 BSA (Body Surface Area) 2.13 m2 12/13/2019 3:03pm BP Systolic 168 mmHg BP Diastolic 62 mmHg Heart Rate 97 /min Body Temperature 97.8 F Respiratory Rate 16 /min O2 % BldC Oximetry 97 % Weight 263.00 lb Weight 119.297 kg Height 63 inches 5'3" BMI (Body Mass Index) 46.6 kg/m2 BSA (Body Surface Area) 2.17 m2 Results Test Acquired Date Facility Test Result H/L Range Note Basic Metabolic Profile 12/23/2019 [facility] Glucose, Fasting 162 mg/dL High 70-100 Blood Urea Nitrogen 19 mg/dL High 7-18 Creatinine For GFR 0.72 mg/dL Normal 0.55-1.30 Glomerular Filtration Rate > 60.0 Normal >51 1 Sodium Level 136 mEq/L Normal 136-145 Potassium Serum 4.8 mEq/L Normal 3.5-5.1 Chloride Level 101 mEq/L Normal 98-107 Carbon Dioxide Level 29 mEq/L Normal 21-32 Anion Gap 6 mEq/L Low 8-16 Calcium Level 9.4 mg/dL Normal 8.5-10.1 Laboratory test finding 12/23/2019 [facility] C Reactive Protein Quantitativ 3.85 mg/dL High 0.00-0.30 CBC With Differential 12/23/2019 [facility] White Blood Count 12.6 10 High 4.0-10.0 Red Blood Count 3.92 10 Low 4.00-5.40 Hemoglobin 10.6 g/dL Low 12.0-15.5 Hematocrit 35.3 % Low 36.0-47.0 Mean Corpuscular Volume 90.1 fl Normal 80.0-96.0 Mean Corpuscular Hemoglobin 27.0 pg Normal 27.0-33.0 Mean Corpuscular HGB Conc 30.0 g/dL Low 32.0-36.5 Red Cell Distribution Width 14.6 % High 11.5-14.5 Platelet Count, Automated 613 10 High 150-450 Neutrophils % 53.9 % Normal 36.0-66.0 Lymph % 33.8 % Normal 24.0-44.0 [place] % 7.3 % High 0.0-5.0 Eos % 2.7 % Normal 0.0-3.0 Baso % 0.8 % Normal 0.0-1.0 Immature Granulocyte % 1.5 % Normal 0-3.0 Nucleated Red Blood Cell % 0.0 % Normal 0-0 Neutrophils # 6.8 10 Normal 1.5-8.5 Lymph # 4.2 10 Normal 1.5-5.0 [place] # 0.9 10 High 0.0-0.8 Eos # 0.3 10 Normal 0.0-0.5 Baso # 0.1 10 Normal 0.0-0.2 Laboratory test finding 12/23/2019 [facility] Erythrocyte Sedimentation Rate 88 mm/hr High 0-30 Comprehensive Metabolic Panel 11/08/2019 [facility] Comprehensive Metabo (SEE NOTE) 2, 3 Sodium 136 mEq/L 134 - 153 Potassium 4.9 mEq/L 3.6 - 5.0 Chloride 97 mEq/L Low 98 - 107 Co2 24 mEq/L 22 - 30 Glucose 183 mg/dL High 65 - 110 BUN 22 mg/dL High 7 - 21 Creatinine 0.7 mg/dL 0.7 - 1.5 BUN/Creat 31 High 8 - 27 Total Protein 6.7 g/dL 6.3 - 8.2 Albumin 3.5 g/dL Low 3.9 - 5.0 Globulin 3.2 GM/DL 2.4 - 3.2 A/G Ratio 1.1 0.8 - 2.0 Calcium 9.4 mg/dL 8.4 - 10.2 Total Bili <0.7 mg/dL 0.2 - 1.3 Alkaline Phos 115 U/L 38 - 126 Sgot/Ast 18 U/L 5 - 40 SGPT/Alt 16 U/L 7 - 56 Anion Gap 15.0 mmol/L 8.0 - 16.0 Age 54 yrs Non-Aa GFR 93 mL/min Afr Amer GFR 113 mL/min 4 Laboratory test finding 11/08/2019 Antonio abrams Hgba1c 8.3 % High 4.4 - 6.1 5 1 Units are mL/min/1.73 m2 Chronic Kidney Disease Staging per NKF: Stage I & II GFR >=60 Normal to Mildly Decreased Stage III GFR 30-59 Moderately Decreased Stage IV GFR 15-29 Severely Decreased Stage V GFR <15 Very Little GFR Left ESRD GFR <15 on [employer] 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 N 3 COMPREHENSIVE METABOLIC PANE L 4 Male GFR Interprentation 20-49 yrs >60 mL/min Normal 50-59 yrs >56 mL/min Normal 60-69 yrs >49 mL/min Normal 70-79yrs >42 mL/min Normal 80 and above >35 mL/min Normal Female GFR Interpretation 20-39 yrs >60 mL/min Normal 40-49 yrs >58 mL/min Normal 50-59 yrs >51 mL/min Normal 60-69 yrs >45 mL/min Normal 70-79 yrs >39 mL/min Normal 80 and above >32 mL/min Normal 5 {A1] {HB] Procedures Date Code Description Status 07/13/2019 [id number] Mammogram Completed Medical Devices Description No Information Available Encounters Type Date Location Provider Dx Diagnosis Office Visit 04/18/2020 2:00p [facility] Brittni Serrano MD E11.621 Type 2 diabetes mellitus with foot ulcer I10 Essential (primary) hyperten argelia E78.5 Hyperlipidemia, unspecified E66.9 Obesity, unspecified Assessments Date Code Description Provider 04/18/2020 E11.621 Type 2 diabetes mellitus with fo ot ulcer Brittni Serrano MD 04/18/2020 I10 Essential (primary) hypertension Brittni Serrano MD 04/18/2020 E78.5 Hyperlipidemia, unspecified Brittni Serrano MD 04/18/2020 E66.9 Obesity, unspecified Brittni talamantes MD 12/13/2019 I10 Essential (primary) hypertension Brittni Serrano MD 12/13/2019 E11.621 Type 2 diabetes mellitus with fo ot ulcer Brittni Serrano MD 11/08/2019 E11.65 Type 2 diabetes mellitus with hy perglycemia Brittni Serrano MD 11/08/2019 Z79.899 Other usp (current) drug t herapy Brittni Serrano MD 11/08/2019 S20.20xA Contusion of thorax, unspecified , initial encounter Brittni Serrano MD Plan of Treatment Future Appointment(s):* 07/19/2020 2:00 pm - Brittni Serrano MD at [facility] 04/18/2020 - Brittni Serrano MD* E11.621 Type 2 diabetes mellitus with foot ulcer * I10 Essential (primary) hypertension * E78.5 Hyperlipidemia, unspecified * E66.9 Obesity, unspecified* Recommendations:* The patient was encouraged to increase the amount of daily exercise; 30 minutes 5x/week. The patient was also encouraged to follow a diet of whole, unprocessed foods; focusing on lean proteins, vegetables, fruits and complex carbs. * All * Follow up:* 3 month Functional Status Functional Condition Comment Date Status prosthesis left & right foot Active Glasses Active Mental Status Description No Information Available Referrals Description No Information Available
--- OUTSIDE RECORDS SUMMARY | 2020-07-17 17:00 | CCD ---
Author Author [facility] Organization [facility] Address Unknown Phone Unavailable Care Team Providers Care Dialysis Nurse Name Role Phone Saundra Carlos Unavailable PROBLEMS Type Condition ICD9-CM Code XAB62-AL Code Onset Dates Condition S tatus SNOMED Code Notes Problem Bipolar affective disorder, currently depressed, moderate F31.32 Active 383077030 Problem Group B streptococcal infection A49.1 Active 742963663 Problem Vaginal candidiasis B37.3 Active 03486866 Problem UTI (urinary tract infection) N39.0 Active 68 846292 Problem Major depression F32.9 Active 112288825 Problem Cervical cancer screening Z12.4 Active 888902 001 Problem Breast cancer screening Z12.39 Active 77172191 6 Problem Pure hypercholesterolemia E78.00 Active 960050 004 Problem Postoperative infection T81.4XXA Active 5618322 7 Problem Amputation at midfoot, right, sequela S98.311S A ctive 024133558 Problem Chronic diabetic ulcer of left foot determined by exam ination E11.621 Active 6687295046475 Problem Osteomyelitis of foot, right, acute M86.171 Acti ve 05487434 Problem Eczema, unspecified type L30.9 Active 1415429 0 Problem Type 2 diabetes mellitus with diabetic neuropathy E11.40 Active 5088243756379 Problem History of osteomyelitis Z87.39 Active 7548203 00 Problem Acute cystitis with hematuria N30.01 Active 81 553461 Problem Diabetic peripheral neuropathy E11.42 Active 4 29202947 Problem Dysuria R30.0 Active 06530190 Problem HTN (hypertension) I10 Active 43997099 Problem JOHN (generalized anxiety disorder) F41.1 Activ e 71885343 Problem Morbid obesity due to excess calories E66.01 Ac tive 442171026 Problem Neurotic excoriations L98.1 Active 54232614 Problem MRSA infection A49.02 Active 393640185 Problem 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.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 Active 359623038177662 Problem Disruption of internal opera tion (surgical) wound, not elsewhere classified, initial encounter T81.32XA Active 943944 008 Problem Myalgia M79.1 Active 77270233 Problem Acute hematogenous osteomyelitis, right ankle and foot M86.071 Active 619356791 Problem Maculopapular rash R21 Active 558346214 Problem Non-healing amputation site T87.89 Active 5152 25631 Problem Type 2 diabetes mellitus with foot ulcer E11.621 Active 231599492 Problem Foot abscess, right L02.611 Active 002186114339 18111 Problem Type 2 diabetes mellitus with other specified complication E11.69 Active 02451542 Problem MSSA (methicillin susceptible Staphylococcus aureus) A49.01 Active 145128959 Problem Phantom limb pain G54.6 Active 4826041536180 Problem Chronic osteomyelitis of right foot M86.671 Acti ve 206634352 Problem Non-pressure chronic ulcer o f other part of right foot with fat layer exposed L97.512 Active 278922284 Problem Non-pressure chronic ulcer o f other part of left foot with fat layer exposed L97.522 Active 075545855 Problem Obesity E66.9 Active 225432306 Problem Calcaneal spur, right foot M77.31 Active 31751 2128751030 Problem Non-pressure chronic ulcer o f other part of right foot limited to breakdown of skin L97.511 Active 187189259 ALLERGIES Allergen (clinical drug ingredient) Drug/Non Drug Allergy do cumented on EMR Reaction Allergy Type Onset Date Status Sudafed([facility] Code:[address]-80) Hives Drug Allergy Active Trazodone 100 Hives Drug Allergy Active cefprozil Cefprozil([facility] Code:[address]-80) Hives Drug Allergy Active fluoxetine Prozac Hives Drug Allergy Active ENCOUNTERS from 1967 to 2020-06-05 Encounter Location Date Provider Diagnosis [facility] [address] [place] [address] May Saundra [place] Type 2 diabetes mellitus with foot ulcer [...] grade Language: Question Answer Notes Languages spoken: Kazakh BMI Care Goal Follow-Up Question Answer Notes Above Normal BMI Follow-Up Dietary management educatio n, guidance, and counseling Tobacco Use: Question Answer Notes Are you a: never smoker REASON FOR REFERRAL No Information VITAL SIGNS Weight 252 lbs May, Weight-kg PER PT kg May, Height 62 in May, BMI 46.09 kg/m2 May, Heart Rate 96 /min May, Respiratory Rate 17 /min May, Temperature 97.0 degrees Fahrenheit May, Oximetry 97% May, Blood pressure systolic 194 mm Hg May, Blood pressure diastolic 86 mm Hg May, MEDICATIONS Medication SIG (Take, Route, Frequency, Duration) Notes Start Da te End Date Status Metformin HCl 1000 MG take one tablet by mouth 2 times a day Orally Active Toujeo SoloStar 300 UNIT/ML 63units bid Subcutaneous bid for 30 days Not-Taking Bactrim DS 800-160 1 tablet orally twice a day for 10 days October, Not-Taking Aspirin 81 MG 1 tablet Orally Once a day for 30 day(s) Active Paper Tape 1"x12yd - as directed topically Daily for 30 day(s) Active Doxycycline Hyclate 100 MG 1 tablet Orally twice a day for 10 da y(s) October, Not-Taking Trulicity 1.5 MG/0.5ML as directed Subcutaneous Active Humalog KwikPen 100 UNIT/ML 20units or < per sliding s [place] Subcutaneous tid c meals for 30 day(s) Not-Taking Lisinopril 10 MG 1 tablet Orally Once a day for 30 day(s) Not-Taking Admelog 100 UNIT/ML as directed Subcutaneous before meals Active Kerlix Gauze Roll Large - as directed topically Daily for 30 day (s) Mar, Active Losartan Potassium 100 MG 1 tablet Orally Once a day Active Macrobid 100 MG Orally every 12 hrs May, Not-Taking Ascorbic Acid 500 MG 1 tablet Orally Once a day Not-Taking Kerlix Bandage Roll 4.5"x9.3' - as directed topically Daily for 30 da y(s) Active Gauze Bandage 4" as directed topically twice daily for 1 month Mar, Active OneTouch Verio - as directed In Vitro five times daily as needed for 30 days Active Levaquin 750 MG 1 tablet Orally Once a day for 30 day(s) Not-Taking May Have - Vasagar 55 units subcutaneously twice daily Active BD Pen Needle Mini U/F 31G X 5 MM as directed subcutan eously 6x /day for 30 days Active Lasix 40 MG 1 tablet Orally Once a day for 30 day(s) Active Terconazole 0.8 % 1 applicatorful at bedtime Vaginal Once a day for 3 day(s) Not-Taking Levocetirizine Dihydrochloride 5 MG 1 tablet in the ev ening Orally Once a day for 30 day(s) Active Multivitamin 1 tab Orally daily Acti ve Gauze Bandage 4" as directed topically twice daily for 1 month Active HydrOXYzine HCl 25 MG 1 tablet as needed Orally tw ice a day as needed for 30 Days Active Amoxicillin-Pot Clavulanate 875-125 MG 1 tablet Orally every 12 hrs for 14 day(s) Not-Taking Saline 0.9 % q.s. 60ml topically Daily for 30 day(s) 2017 Not-Taking Toujeo Insulin Injection 300 ml 63 units subcutaneously bid Not-Taking AmLODIPine Besylate 10 MG 1 tablet Orally Once a day Active Cymbalta 60 MG 1 capsule Orally Daily Active One Touch Delica 33 gauge 1 lancet _ 5 times daily as needed for 30 days Jun, Active Atorvastatin Calcium 10 MG 1 tab Orally Once a day for 30 days Active Ibuprofen 600 MG 1 tablet with food or milk as needed Orally Amisha ly as needed Active Fluconazole 100 MG 1 tablet Orally for 10 day(s) Mar, Active Triamcinolone Acetonide 0.1 % 1 application Externally Twice a day for 30 Days Active Gabapentin 300 MG 1 capsule Orally three times a day Active Dicloxacillin Sodium 500 MG 1 capsule 1 hour before or 2 hours after meals Orally every 6 hrs for 10 day(s) Mar, Active PROCEDURES from 1967 to 2020-06-05 Procedure Date Ordered Result Body Site LIDOCAINE 4% CREAM TOPICAL 2020-05-29 N/A RESULTS No Results REASON FOR VISIT BLE wounds MEDICAL (GENERAL) HISTORY Type Description Date Medical [...] wound vac, iv vanco[facility] Hospitalization History Left femur fx 1969' Hospitalization History right foot toe removal 03/12/2018 [...] TO APPLY TISSUE PRODUCT PLAN OF TREATMENT Treatment Notes Assessment Notes Clinical Notes Type 2 diabetes mellitus with foot ulcer Dressing mooney ges 3X week. The dressing should follow those documented in the procedure note Next Appt Details 1 Week Reason: Provider Name:Saundra Carlos, 06-12 08:00:00 AM, [place], [address], Insurance Providers Payer Name Payer Address Payer Phone Insured Name Patient Relati onship to Insured Coverage Start Date Coverage End Date [facility] [id number] [facility] [phone] KIYA ORTIZ self
--- OUTSIDE RECORDS SUMMARY | 2020-07-17 17:00 | CCD ---
Author Author [facility] Organization [facility] Address Unknown Phone Unavailable Care Team Providers Care Production Tool Engineer Name Role Phone Saundra Carlos Unavailable PROBLEMS Type Condition ICD9-CM Code [id number] Code Onset Dates Condition S tatus SNOMED Code Notes Problem Bipolar affective disorder, currently depressed, moderate F31.32 Active 266166760 Problem Group B streptococcal infection A49.1 Active 588919594 Problem Vaginal candidiasis B37.3 Active 11209749 Problem UTI (urinary tract infection) N39.0 Active 68 828493 Problem Major depression F32.9 Active 535127596 Problem Cervical cancer screening Z12.4 Active 958305 001 Problem Breast cancer screening Z12.39 Active 43582901 6 Problem Pure hypercholesterolemia E78.00 Active 323045 004 Problem Postoperative infection T81.4XXA Active 3375729 7 Problem Amputation at midfoot, right, sequela S98.311S A ctive 371525417 Problem Chronic diabetic ulcer of left foot determined by exam ination E11.621 Active 8922814836207 Problem Osteomyelitis of foot, right, acute M86.171 Acti ve 89444591 Problem Eczema, unspecified type L30.9 Active 8542654 0 Problem Type 2 diabetes mellitus with diabetic neuropathy E11.40 Active 4633006427139 Problem History of osteomyelitis Z87.39 Active 6602615 00 Problem Acute cystitis with hematuria N30.01 Active 81 519434 Problem Diabetic peripheral neuropathy E11.42 Active 4 20764019 Problem Dysuria R30.0 Active 12853297 Problem HTN (hypertension) I10 Active 84912335 Problem JOHN (generalized anxiety disorder) F41.1 Activ e 07324204 Problem Morbid obesity due to excess calories E66.01 Ac tive 774512451 Problem Neurotic excoriations L98.1 Active 91881263 Problem MRSA infection A49.02 Active 202185991 Problem 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.471 Active 055206576624894 Problem Disruption of internal opera tion (surgical) wound, not elsewhere classified, initial encounter T81.32XA Active 146887 008 Problem Myalgia M79.1 Active 98436966 Problem Acute hematogenous osteomyelitis, right ankle and foot M86.071 Active 623420328 Problem Maculopapular rash R21 Active 069767756 Problem Non-healing amputation site T87.89 Active 8922 00700 Problem Type 2 diabetes mellitus with foot ulcer E11.621 Active 119671802 Problem Foot abscess, right L02.611 Active 350549523970 29502 Problem Type 2 diabetes mellitus with other specified complication E11.69 Active 87084790 Problem MSSA (methicillin susceptible Staphylococcus aureus) A49.01 Active 644354699 Problem Phantom limb pain G54.6 Active 5706400977626 Problem Chronic osteomyelitis of right foot M86.671 Acti ve 148952274 Problem Non-pressure chronic ulcer o f other part of right foot with fat layer exposed L97.512 Active 753951354 Problem Non-pressure chronic ulcer o f other part of left foot with fat layer exposed L97.522 Active 018726123 Problem Obesity E66.9 Active 701011923 Problem Calcaneal spur, right foot M77.31 Active 39590 5571585718 Problem Non-pressure chronic ulcer o f other part of right foot limited to breakdown of skin L97.511 Active 240432180 ALLERGIES Allergen (clinical drug ingredient) Drug/Non Drug Allergy do cumented on EMR Reaction Allergy Type Onset Date Status Sudafed([facility] Code:[address]-62) Hives Drug Allergy Active Trazodone 100 Hives Drug Allergy Active cefprozil Cefprozil([facility] Code:[address]-75) Hives Drug Allergy Active fluoxetine Prozac Hives Drug Allergy Active ENCOUNTERS from 1967 to 2020-05-02 Encounter Location Date Provider Diagnosis [facility] [address] [place] [address] Apr Saundra Carlos IMMUNIZATIONS Vaccine Route Administration Date Status Influenza [...] grade Language: Question Answer Notes Languages spoken: Kenyan BMI Care Goal Follow-Up Question Answer Notes Above Normal BMI Follow-Up Dietary management educatio n, guidance, and counseling Tobacco Use: Question Answer Notes Are you a: never smoker REASON FOR REFERRAL No Information VITAL SIGNS No information MEDICATIONS Medication SIG (Take, Route, Frequency, Duration) Start Date En d Date Status Gabapentin 300 MG 1 capsule Orally three times a day Active Lisinopril 10 MG 1 tablet Orally Once a day for 30 day(s) Not-Taking Toujeo Insulin Injection 300 ml 63 units subcutaneously bid Not-Taking Dicloxacillin Sodium 500 MG 1 capsule 1 hour before or 2 hours after meals Orally every 6 hrs for 10 day(s) Mar, Active Losartan Potassium 100 MG 1 tablet Orally Once a day Active Gauze Bandage 4" as directed topically twice daily for 1 month Active Atorvastatin Calcium 10 MG 1 tab Orally Once a day for 30 days Active Ascorbic Acid 500 MG 1 tablet Orally Once a day Not-Taking BD Pen Needle Mini U/F 31G X 5 MM as directed subcutan eously 6x /day for 30 days Active Cymbalta 60 MG 1 capsule Orally Daily Act betsy OneTouch Verio - as directed In Vitro five times daily as needed for 30 days Active Paper Tape 1"x12yd - as directed topically Daily for 30 day(s) Active Doxycycline Hyclate 100 MG 1 tablet Orally twice a day for 1 0 day(s) October, Not-Taking Kerlix Bandage Roll 4.5"x9.3' - as directed topically Daily for 30 day(s) Active Terconazole 0.8 % 1 applicatorful at bedtime Vaginal Once a day for 3 day(s) Not-Taking Multivitamin 1 tab Orally daily Active Levaquin 750 MG 1 tablet Orally Once a day for 30 day(s) Not-Taking Kerlix Gauze Roll Large - as directed topically Daily for 30 day(s) Mar, Active One Touch Delica 33 gauge 1 lancet _ 5 times daily as needed for 30 days Jun, Active Saline 0.9 % q.s. 60ml topically Daily for 30 day(s) Mar, Not-Taking Triamcinolone Acetonide 0.1 % 1 application Externally Twice a day for 30 Days Active Fluconazole 100 MG 1 tablet Orally for 10 day(s) Mar, Active Metformin HCl 1000 MG take one tablet by mouth 2 times a day Orally Active HydrOXYzine HCl 25 MG 1 tablet as needed Orally tw ice a day as needed for 30 Days Active Amoxicillin-Pot Clavulanate 875-125 MG 1 tablet Orally every 12 hrs for 14 day(s) Not-Taking AmLODIPine Besylate 10 MG 1 tablet Orally Once a day Active Ibuprofen 600 MG 1 tablet with food or milk as needed Orally Amisha ly as needed Active Lasix 40 MG 1 tablet Orally Once a day for 30 day(s) Active Levocetirizine Dihydrochloride 5 MG 1 tablet in the ev ening Orally Once a day for 30 day(s) Active Bactrim DS 800-160 1 tablet orally twice a day for 10 days October, Not-Taking Admelog 100 UNIT/ML as directed Subcutaneous before meals Active Trulicity 1.5 MG/0.5ML as directed Subcutaneous Active Aspirin 81 MG 1 tablet Orally Once a day for 30 day(s) Active Humalog KwikPen 100 UNIT/ML 20units or < per sliding s [place] Subcutaneous tid c meals for 30 day(s) Not-Taking May Have - Vasagar 55 units subcutaneously twice daily Active Toujeo SoloStar 300 UNIT/ML 63units bid Subcutaneous bid for 30 day s Not-Taking Macrobid 100 MG Orally every 12 hrs May, Not- Taking Gauze Bandage 4" as directed topically twice daily for 1 month 2017 Active PROCEDURES No Information RESULTS No Results REASON FOR VISIT Other MEDICAL (GENERAL) HISTORY Type Description Date Medical [...] wound vac, iv vanco, [facility] Hospitalization History Left femur fx Hospitalization History right foot toe removal 03/12/2018 Hospitalization History right foot infection 10/2019 Goals Section No Information Health Concerns No Information MEDICAL EQUIPMENT No Information MENTAL STATUS No Information FUNCTIONAL STATUS No Information ASSESSMENTS No Information PLAN OF TREATMENT Next Appt Details Provider Name:Heaven Rodriguez William, 01:00:00 PM, [address] [place], [address], Provider Name:Saundra Carlos, 05-09 10:30:00 AM, [address] [place], [address], Insurance Providers Payer Name Payer Address Payer Phone Insured Name Patient Relati onship to Insured Coverage Start Date Coverage End Date [facility] COMMUNITY PLAN [facility] [address] [facility] [address] [phone] KIYA ORTIZ self
--- OUTSIDE RECORDS SUMMARY | 2020-07-17 17:00 | CCD ---
Author Author [facility] Organization [facility] Address Unknown Phone Unavailable Care Team Providers Care Senior Science Consultant Name Role Phone Sophie Sifuentes Unavailable PROBLEMS Type Condition ICD9-CM Code [id number] Code Onset Dates Condition S tatus SNOMED Code Notes Problem Bipolar affective disorder, currently depressed, moderate F31.32 Active 499249857 Problem Group B streptococcal infection A49.1 Active 175711808 Problem Vaginal candidiasis B37.3 Active 92168888 Problem UTI (urinary tract infection) N39.0 Active 68 810317 Problem Major depression F32.9 Active 077088228 Problem Cervical cancer screening Z12.4 Active 225006 001 Problem Breast cancer screening Z12.39 Active 05719706 6 Problem Pure hypercholesterolemia E78.00 Active 136504 004 Problem Postoperative infection T81.4XXA Active 2983837 7 Problem Amputation at midfoot, right, sequela S98.311S A ctive 148924975 Problem Chronic diabetic ulcer of left foot determined by exam ination E11.621 Active 6996042795074 Problem Osteomyelitis of foot, right, acute M86.171 Acti ve 65363224 Problem Eczema, unspecified type L30.9 Active 2203227 0 Problem Type 2 diabetes mellitus with diabetic neuropathy E11.40 Active 1625255760656 Problem History of osteomyelitis Z87.39 Active 0362158 00 Problem Acute cystitis with hematuria N30.01 Active 81 441599 Problem Diabetic peripheral neuropathy E11.42 Active 4 68895262 Problem Dysuria R30.0 Active 37575339 Problem HTN (hypertension) I10 Active 99892125 Problem JOHN (generalized anxiety disorder) F41.1 Activ e 02017741 Problem Morbid obesity due to excess calories E66.01 Ac tive 853521199 Problem Neurotic excoriations L98.1 Active 22677619 Problem MRSA infection A49.02 Active 355495011 Problem 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.471 Active 710488236164916 Problem Disruption of internal opera tion (surgical) wound, not elsewhere classified, initial encounter T81.32XA Active 672516 008 Problem Myalgia M79.1 Active 03487632 Problem Acute hematogenous osteomyelitis, right ankle and foot M86.071 Active 193073482 Problem Maculopapular rash R21 Active 560354550 Problem Non-healing amputation site T87.89 Active 2402 91873 Problem Type 2 diabetes mellitus with foot ulcer E11.621 Active 433409955 Problem Foot abscess, right L02.611 Active 431871056508 43449 Problem Type 2 diabetes mellitus with other specified complication E11.69 Active 10970990 Problem MSSA (methicillin susceptible Staphylococcus aureus) A49.01 Active 681529585 Problem Phantom limb pain G54.6 Active 6126112531865 Problem Chronic osteomyelitis of right foot M86.671 Acti ve 951041532 Problem Non-pressure chronic ulcer o f other part of right foot with fat layer exposed L97.512 Active 088548302 Problem Non-pressure chronic ulcer o f other part of left foot with fat layer exposed L97.522 Active 025454914 Problem Obesity E66.9 Active 163802513 Problem Calcaneal spur, right foot M77.31 Active 00620 0976035921 Problem Non-pressure chronic ulcer o f other part of right foot limited to breakdown of skin L97.511 Active 122768443 ALLERGIES Allergen (clinical drug ingredient) Drug/Non Drug Allergy do cumented on EMR Reaction Allergy Type Onset Date Status Sudafed([facility] Code:[address]-05) Hives Drug Allergy Active Trazodone 100 Hives Drug Allergy Active cefprozil Cefprozil([facility] Code:[address]-31) Hives Drug Allergy Active fluoxetine Prozac Hives Drug Allergy Active ENCOUNTERS from 1967 to 2020-06-26 Encounter Location Date Provider Diagnosis [address] [address] May, Sophieisidro Sifuentes Contact dermatitis due to food in contac t with skin, unspecified contact dermatitis type L25.4 IMMUNIZATIONS Vaccine Route Administration Date Status Influenza [...] grade Language: Question Answer Notes Languages spoken: Nepalese BMI Care Goal Follow-Up Question Answer Notes [...] Once a day for 3 day(s) Not-Taking Ibuprofen 600 MG 1 tablet with food or milk as needed Orally Amisha ly as needed Active Multivitamin 1 tab Orally daily Acti [...] Once a day for 30 days Active Triamcinolone Acetonide 0.1 % 1 application Externally Twice a day for 30 Days Active Gabapentin 300 MG 1 capsule Orally three times a day Active Fluconazole 100 MG 1 tablet Orally for 10 day(s) Mar, 020 Active Dicloxacillin Sodium 500 MG 1 capsule 1 hour before or 2 hours after meals Orally every 6 hrs for 10 day(s) Mar, Active Levocetirizine Dihydrochloride 5 MG 1 tablet in the ev ening Orally Once a day for 30 day(s) Active PROCEDURES No Information RESULTS No Results REASON FOR VISIT No Information MEDICAL (GENERAL) HISTORY Type Description Date Medical [...] wound vac, iv vanco[facility]09[facility]13[facility] Hospitalization History Left femur fx 1969' Hospitalization History right foot toe removal 03/12/2018 Hospitalization History right foot infection 10/2019 Goals Section No Information Health Concerns No Information MEDICAL EQUIPMENT No Information MENTAL STATUS No Information FUNCTIONAL STATUS No Information ASSESSMENTS Encounter Date Diagnosis Assessment Notes Treatment Notes Treatm ent Clinical Notes May, Contact dermatitis due to fo od in contact with skin, unspecified contact dermatitis type (ICD-10 - L25.4) PLAN OF TREATMENT Medication Medication Name Sig Start Date Stop Date Levocetirizine Dihydrochloride 5 MG 1 tablet in the ev ening Orally Once a day for 30 day(s) Next Appt Details Provider Name:Saundra Carlos, 06-27 08:00:00 AM, [address] [place], [address], Provider Name:Saundra Carlos, 07-11 08:00:00 AM, [address] [place], [address], Insurance Providers Payer Name Payer Address Payer Phone Insured Name Patient Relati onship to Insured Coverage Start Date Coverage End Date [facility] COMMUNITY PLAN [facility] [address] [facility] [phone] KIYA ORTIZ self
[2020-07-17 17:09] LABS: RSV AMPLIFICATION NEGATIVE (NEGATIVE)
[2020-07-17 17:14] LABS: C REACTIVE PROTEIN QUANTITATIV 31.8 MG/DL (0.00-0.30); CALCIUM LEVEL 8.7 MG/DL (8.5-10.1); CREATININE FOR GFR 1.06 MG/DL (0.55-1.30); GLOMERULAR FILTRATION RATE 57.7 (>51); POTASSIUM SERUM 4.1 MEQ/L (3.5-5.1)
[2020-07-17] MEDS ORDERED: VANCOMYCIN HCL 1,000 MG, VIAL MATE ADAPTER 1 EACH in D5W 250 ML IV SCH (18:15)
--- OUTSIDE RECORDS SUMMARY | 2020-07-17 18:22 | CCD ---
Author Author [facility] Organization [facility] Address Unknown Phone Unavailable Care Team Providers Care Consultant Electronics Name Role Phone Heaven Thomas Unavailable PROBLEMS Type Condition ICD9-CM Code LHU91-NZ Code Onset Dates Condition S tatus SNOMED Code Notes Problem Bipolar affective disorder, currently depressed, moderate F31.32 Active 946498645 Problem Group B streptococcal infection A49.1 Active 589313806 Problem Vaginal candidiasis B37.3 Active 97492156 Problem UTI (urinary tract infection) N39.0 Active 68 589767 Problem Major depression F32.9 Active 398049015 Problem Cervical cancer screening Z12.4 Active 834062 001 Problem Breast cancer screening Z12.39 Active 85586358 6 Problem Pure hypercholesterolemia E78.00 Active 952245 004 Problem Postoperative infection T81.4XXA Active 7589474 7 Problem Amputation at midfoot, right, sequela S98.311S A ctive 906263092 Problem Chronic diabetic ulcer of left foot determined by exam ination E11.621 Active 2337900401459 Problem Osteomyelitis of foot, right, acute M86.171 Acti ve 99959736 Problem Eczema, unspecified type L30.9 Active 9607612 0 Problem Type 2 diabetes mellitus with diabetic neuropathy E11.40 Active 9335072803109 Problem History of osteomyelitis Z87.39 Active 0449851 00 Problem Acute cystitis with hematuria N30.01 Active 81 827510 Problem Diabetic peripheral neuropathy E11.42 Active 4 86521930 Problem Dysuria R30.0 Active 89922237 Problem HTN (hypertension) I10 Active 99564304 Problem JOHN (generalized anxiety disorder) F41.1 Activ e 27492732 Problem Morbid obesity due to excess calories E66.01 Ac tive 347007398 Problem Neurotic excoriations L98.1 Active 18909481 Problem MRSA infection A49.02 Active 113425780 Problem 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.471 Active 045791715727978 Problem Disruption of internal opera tion (surgical) wound, not elsewhere classified, initial encounter T81.32XA Active 936462 008 Problem Myalgia M79.1 Active 44792018 Problem Acute hematogenous osteomyelitis, right ankle and foot M86.071 Active 169851380 Problem Maculopapular rash R21 Active 834053177 Problem Non-healing amputation site T87.89 Active 3782 32142 Problem Type 2 diabetes mellitus with foot ulcer E11.621 Active 359338909 Problem Foot abscess, right L02.611 Active 297271034366 07178 Problem Type 2 diabetes mellitus with other specified complication E11.69 Active 88411631 Problem MSSA (methicillin susceptible Staphylococcus aureus) A49.01 Active 706037435 Problem Phantom limb pain G54.6 Active 8727768791166 Problem Chronic osteomyelitis of right foot M86.671 Acti ve 743769165 Problem Non-pressure chronic ulcer o f other part of right foot with fat layer exposed L97.512 Active 613460714 Problem Non-pressure chronic ulcer o f other part of left foot with fat layer exposed L97.522 Active 635302486 Problem Obesity E66.9 Active 991485276 Problem Calcaneal spur, right foot M77.31 Active 57131 3435012412 Problem Non-pressure chronic ulcer o f other part of right foot limited to breakdown of skin L97.511 Active 670879437 ALLERGIES Allergen (clinical drug ingredient) Drug/Non Drug Allergy do cumented on EMR Reaction Allergy Type Onset Date Status Sudafed([facility] Code:[address]-02) Hives Drug Allergy Active Trazodone 100 Hives Drug Allergy Active cefprozil Cefprozil([facility] Code:[address]-32) Hives Drug Allergy Active fluoxetine Prozac Hives Drug Allergy Active ENCOUNTERS from 1967 to 2020-06-27 Encounter Location Date Provider Diagnosis [address] [address] May, Jenniferkoki Thomas Chronic osteomyelitis of right foot M86. 671 IMMUNIZATIONS Vaccine Route Administration Date Status Influenza [...] grade Language: Question Answer Notes Languages spoken: Occitan BMI Care Goal Follow-Up Question Answer Notes [...] twice daily for 1 month Mar, Active May Have - Vasagar 55 units subcutaneously [...] as needed for 30 days Active PROCEDURES No Information RESULTS No Results REASON FOR VISIT Dicloxacillin Sodium 500 MG MEDICAL (GENERAL) HISTORY Type Description Date Medical [...] wound vac, iv vanco, [facility]-09/13[facility] Hospitalization History Left femur fx 1969' Hospitalization History right foot toe removal 03/12/2018 Hospitalization History right foot infection 10/2019 Goals Section No Information Health Concerns No Information MEDICAL EQUIPMENT No Information MENTAL STATUS No Information FUNCTIONAL STATUS No Information ASSESSMENTS Encounter Date Diagnosis Assessment Notes Treatment Notes Treatm ent Clinical Notes May, Chronic osteomyelitis of right foot (ICD-10 - M8 6.671) PLAN OF TREATMENT Medication Medication Name Sig Start Date Stop Date Dicloxacillin Sodium 500 MG 1 capsule 1 hour before or 2 hours after meals Orally every 6 hrs for 10 day(s) Mar, Next Appt Details Provider Name:Saundra Carlos, 07-11 08:00:00 AM, [address] [place], [address], Insurance Providers Payer Name Payer Address Payer Phone Insured Name Patient Relati onship to Insured Coverage Start Date Coverage End Date [facility] COMMUNITY PLAN [facility] [address] [facility] [id number] KIYA ORTIZ self
--- OUTSIDE RECORDS SUMMARY | 2020-07-17 18:23 | CCD ---
Author Author [facility] Organization [facility] Address Unknown Phone Unavailable Care Team Providers Care Ultrasonic Tester Name Role Phone Saundra Carlos Unavailable PROBLEMS Type Condition ICD9-CM Code [id number] Code Onset Dates Condition S tatus SNOMED Code Notes Problem Bipolar affective disorder, currently depressed, moderate F31.32 Active 956428860 Problem Group B streptococcal infection A49.1 Active 489625370 Problem Vaginal candidiasis B37.3 Active 47706193 Problem UTI (urinary tract infection) N39.0 Active 68 429999 Problem Major depression F32.9 Active 736886405 Problem Cervical cancer screening Z12.4 Active 467554 001 Problem Breast cancer screening Z12.39 Active 67654710 6 Problem Pure hypercholesterolemia E78.00 Active 970858 004 Problem Postoperative infection T81.4XXA Active 6931009 7 Problem Amputation at midfoot, right, sequela S98.311S A ctive 208042113 Problem Chronic diabetic ulcer of left foot determined by exam ination E11.621 Active 0581249283842 Problem Osteomyelitis of foot, right, acute M86.171 Acti ve 82242605 Problem Eczema, unspecified type L30.9 Active 5365613 0 Problem Type 2 diabetes mellitus with diabetic neuropathy E11.40 Active 4392137001931 Problem History of osteomyelitis Z87.39 Active 4483876 00 Problem Acute cystitis with hematuria N30.01 Active 81 634374 Problem Diabetic peripheral neuropathy E11.42 Active 4 57835807 Problem Dysuria R30.0 Active 62634371 Problem HTN (hypertension) I10 Active 76783279 Problem JOHN (generalized anxiety disorder) F41.1 Activ e 53819160 Problem Morbid obesity due to excess calories E66.01 Ac tive 962318791 Problem Neurotic excoriations L98.1 Active 28923507 Problem MRSA infection A49.02 Active 794460017 Problem 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.471 Active 556685036673774 Problem Disruption of internal opera tion (surgical) wound, not elsewhere classified, initial encounter T81.32XA Active 846402 008 Problem Myalgia M79.1 Active 41147953 Problem Acute hematogenous osteomyelitis, right ankle and foot M86.071 Active 260598798 Problem Maculopapular rash R21 Active 171395443 Problem Non-healing amputation site T87.89 Active 0992 72505 Problem Type 2 diabetes mellitus with foot ulcer E11.621 Active 419947410 Problem Foot abscess, right L02.611 Active 087206497357 83666 Problem Type 2 diabetes mellitus with other specified complication E11.69 Active 76387238 Problem MSSA (methicillin susceptible Staphylococcus aureus) A49.01 Active 734856183 Problem Phantom limb pain G54.6 Active 5271396856233 Problem Chronic osteomyelitis of right foot M86.671 Acti ve 503780434 Problem Non-pressure chronic ulcer o f other part of right foot with fat layer exposed L97.512 Active 416402530 Problem Non-pressure chronic ulcer o f other part of left foot with fat layer exposed L97.522 Active 871272322 Problem Obesity E66.9 Active 682333695 Problem Calcaneal spur, right foot M77.31 Active 14405 2483524307 Problem Non-pressure chronic ulcer o f other part of right foot limited to breakdown of skin L97.511 Active 344134309 ALLERGIES Allergen (clinical drug ingredient) Drug/Non Drug Allergy do cumented on EMR Reaction Allergy Type Onset Date Status Sudafed([facility] Code:[address]-12) Hives Drug Allergy Active Trazodone 100 Hives Drug Allergy Active cefprozil Cefprozil(NDC Code:[address]-81) Hives Drug Allergy Active fluoxetine Prozac Hives Drug Allergy Active ENCOUNTERS from 1967 to 2020-05-09 Encounter Location Date Provider Diagnosis [facility] [address] [place] [address] Apr Saundra Carlos IMMUNIZATIONS Vaccine Route Administration [...] grade Language: Question Answer Notes Languages spoken: Samoan BMI Care Goal Follow-Up Question Answer Notes [...] Information RESULTS No Results REASON FOR VISIT [facility] APT MEDICAL (GENERAL) HISTORY Type Description Date Medical [...] wound vac, iv vanco, [facility] Hospitalization History Left femur fx Hospitalization History right foot toe removal 03/12/2018 Hospitalization History right foot infection 10/2019 Goals Section No Information Health Concerns No Information MEDICAL EQUIPMENT No Information MENTAL STATUS No Information FUNCTIONAL STATUS No Information ASSESSMENTS No Information PLAN OF TREATMENT Next Appt Details Provider Name:Saundra Carlos, 05-16 09:30:00 AM, [address] [place], [address], Insurance Providers Payer Name Payer Address Payer Phone Insured Name Patient Relati onship to Insured Coverage Start Date Coverage End Date [facility] COMMUNITY PLAN [facility] [address] [facility] [address] KIYA ORTIZ self
--- OUTSIDE RECORDS SUMMARY | 2020-07-17 18:23 | CCD ---
Author Author [facility] Organization [facility] Address Unknown Phone Unavailable Care Team Providers Care Adult Secondary Education Instructor Name Role Phone Justin August Unavailable PROBLEMS Type Condition ICD9-CM Code [id number] Code Onset Dates Condition S tatus SNOMED Code Notes Problem Bipolar affective disorder, currently depressed, moderate F31.32 Active 876655845 Problem Group B streptococcal infection A49.1 Active 269177977 Problem Vaginal candidiasis B37.3 Active 21869356 Problem UTI (urinary tract infection) N39.0 Active 68 063243 Problem Major depression F32.9 Active 960119957 Problem Cervical cancer screening Z12.4 Active 084682 001 Problem Breast cancer screening Z12.39 Active 39685135 6 Problem Pure hypercholesterolemia E78.00 Active 501290 004 Problem Postoperative infection T81.4XXA Active 3242443 7 Problem Amputation at midfoot, right, sequela S98.311S A ctive 751476517 Problem Chronic diabetic ulcer of left foot determined by exam ination E11.621 Active 7839666031363 Problem Osteomyelitis of foot, right, acute M86.171 Acti ve 88486549 Problem Eczema, unspecified type L30.9 Active 9444340 0 Problem Type 2 diabetes mellitus with diabetic neuropathy E11.40 Active 2923452739372 Problem History of osteomyelitis Z87.39 Active 1339889 00 Problem Acute cystitis with hematuria N30.01 Active 81 801093 Problem Diabetic peripheral neuropathy E11.42 Active 4 47157569 Problem Dysuria R30.0 Active 98114209 Problem HTN (hypertension) I10 Active 35838989 Problem JOHN (generalized anxiety disorder) F41.1 Activ e 22960034 Problem Morbid obesity due to excess calories E66.01 Ac tive 437919366 Problem Neurotic excoriations L98.1 Active 97223025 Problem MRSA infection A49.02 Active 212945633 Problem 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.471 Active 480879745034823 Problem Disruption of internal opera tion (surgical) wound, not elsewhere classified, initial encounter T81.32XA Active 322151 008 Problem Myalgia M79.1 Active 46452422 Problem Acute hematogenous osteomyelitis, right ankle and foot M86.071 Active 153234788 Problem Maculopapular rash R21 Active 094969414 Problem Non-healing amputation site T87.89 Active 2402 76540 Problem Type 2 diabetes mellitus with foot ulcer E11.621 Active 584591138 Problem Foot abscess, right L02.611 Active 278726618075 85794 Problem Type 2 diabetes mellitus with other specified complication E11.69 Active 17625284 Problem MSSA (methicillin susceptible Staphylococcus aureus) A49.01 Active 110409149 Problem Phantom limb pain G54.6 Active 4691550354260 Problem Chronic osteomyelitis of right foot M86.671 Acti ve 671381385 Problem Non-pressure chronic ulcer o f other part of right foot with fat layer exposed L97.512 Active 076585712 Problem Non-pressure chronic ulcer o f other part of left foot with fat layer exposed L97.522 Active 600852254 Problem Obesity E66.9 Active 631490875 Problem Calcaneal spur, right foot M77.31 Active 98511 4494421833 Problem Non-pressure chronic ulcer o f other part of right foot limited to breakdown of skin L97.511 Active 649282636 ALLERGIES Allergen (clinical drug ingredient) Drug/Non Drug Allergy do cumented on EMR Reaction Allergy Type Onset Date Status Sudafed(ND Code:[address]-28) Hives Drug Allergy Active Trazodone 100 Hives Drug Allergy Active cefprozil Cefprozil(NDC Code:[address]-47) Hives Drug Allergy Active fluoxetine Prozac Hives Drug Allergy Active ENCOUNTERS from 1967 to 2020-05-07 Encounter Location Date Provider Diagnosis [facility] [address] [place] [address] Apr Justin August IMMUNIZATIONS Vaccine Route Administration Date Status Influenza [...] grade Language: Question Answer Notes Languages spoken: Welsh BMI Care Goal Follow-Up Question Answer Notes [...] Information RESULTS No Results REASON FOR VISIT [facility] Apt. MEDICAL (GENERAL) HISTORY Type Description Date Medical [...] wound vac, iv vanco, [facility] 08/18-09/13/2015 Hospitalization History Left femur fx Hospitalization History right foot toe removal 03/12/2018 Hospitalization History right foot infection 10/2019 Goals Section No Information Health Concerns No Information MEDICAL EQUIPMENT No Information MENTAL STATUS No Information FUNCTIONAL STATUS No Information ASSESSMENTS No Information PLAN OF TREATMENT Next Appt Details Provider Name:Saundra Carlos, 05-09 10:30:00 AM, [address] [facility], [place], [address], Insurance Providers Payer Name Payer Address Payer Phone Insured Name Patient Relati onship to Insured Coverage Start Date Coverage End Date [facility] COMMUNITY PLAN [facility] [address] [facility] [phone] KIYA ORTIZ self
--- OUTSIDE RECORDS SUMMARY | 2020-07-17 18:23 | CCD ---
Author Author [facility] Organization [facility] Address Unknown Phone Unavailable Care Team Providers Care Wireworker Supervisor Name Role Phone Saundra Carlos Unavailable PROBLEMS Type Condition ICD9-CM Code [id number] Code Onset Dates Condition S tatus SNOMED Code Notes Problem Bipolar affective disorder, currently depressed, moderate F31.32 Active 108306742 Problem Group B streptococcal infection A49.1 Active 889897781 Problem Vaginal candidiasis B37.3 Active 95079328 Problem UTI (urinary tract infection) N39.0 Active 68 270516 Problem Major depression F32.9 Active 540777649 Problem Cervical cancer screening Z12.4 Active 825702 001 Problem Breast cancer screening Z12.39 Active 79200187 6 Problem Pure hypercholesterolemia E78.00 Active 486586 004 Problem Postoperative infection T81.4XXA Active 8575233 7 Problem Amputation at midfoot, right, sequela S98.311S A ctive 180828086 Problem Chronic diabetic ulcer of left foot determined by exam ination E11.621 Active 7499749138377 Problem Osteomyelitis of foot, right, acute M86.171 Acti ve 13739850 Problem Eczema, unspecified type L30.9 Active 5219884 0 Problem Type 2 diabetes mellitus with diabetic neuropathy E11.40 Active 2792656770812 Problem History of osteomyelitis Z87.39 Active 3857930 00 Problem Acute cystitis with hematuria N30.01 Active 81 573107 Problem Diabetic peripheral neuropathy E11.42 Active 4 11727366 Problem Dysuria R30.0 Active 13999141 Problem HTN (hypertension) I10 Active 23388744 Problem JOHN (generalized anxiety disorder) F41.1 Activ e 77651322 Problem Morbid obesity due to excess calories E66.01 Ac tive 107670600 Problem Neurotic excoriations L98.1 Active 41808646 Problem MRSA infection A49.02 Active 622002134 Problem 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.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 Active 047354454823024 Problem Disruption of internal opera tion (surgical) wound, not elsewhere classified, initial encounter T81.32XA Active 906046 008 Problem Myalgia M79.1 Active 95603774 Problem Acute hematogenous osteomyelitis, right ankle and foot M86.071 Active 219053557 Problem Maculopapular rash R21 Active 598011031 Problem Non-healing amputation site T87.89 Active 6652 58249 Problem Type 2 diabetes mellitus with foot ulcer E11.621 Active 326845656 Problem Foot abscess, right L02.611 Active 416253317686 97623 Problem Type 2 diabetes mellitus with other specified complication E11.69 Active 68685109 Problem MSSA (methicillin susceptible Staphylococcus aureus) A49.01 Active 840833774 Problem Phantom limb pain G54.6 Active 4697369964359 Problem Chronic osteomyelitis of right foot M86.671 Acti ve 878124406 Problem Non-pressure chronic ulcer o f other part of right foot with fat layer exposed L97.512 Active 194704567 Problem Non-pressure chronic ulcer o f other part of left foot with fat layer exposed L97.522 Active 679353475 Problem Obesity E66.9 Active 874281511 Problem Calcaneal spur, right foot M77.31 Active 64902 3657304247 Problem Non-pressure chronic ulcer o f other part of right foot limited to breakdown of skin L97.511 Active 222640013 ALLERGIES Allergen (clinical drug ingredient) Drug/Non Drug Allergy do cumented on EMR Reaction Allergy Type Onset Date Status Sudafed([facility] Code:[address]-08) Hives Drug Allergy Active Trazodone 100 Hives Drug Allergy Active cefprozil Cefprozil(NDC Code:[address]-99) Hives Drug Allergy Active fluoxetine Prozac Hives Drug Allergy Active ENCOUNTERS from 1967 to 2020-05-15 Encounter Location Date Provider Diagnosis [facility] [address] [place] [address] Mar Saundra Carlos Type 2 diabetes mellitus with [...] grade Language: Question Answer Notes Languages spoken: Bulgarian BMI Care Goal Follow-Up Question Answer Notes Above Normal BMI Follow-Up Dietary management educatio n, guidance, and counseling Tobacco Use: Question Answer Notes Are you a: never smoker REASON FOR REFERRAL No Information VITAL SIGNS Weight 252 lbs Mar, Weight-kg PER PT kg Mar, Height 62 in Mar, BMI 46.09 kg/m2 Mar, Heart Rate 80 /min Mar, Respiratory Rate 18 /min Mar, Temperature 97.2 degrees Fahrenheit Mar, Oximetry 99 Mar, Blood pressure systolic 131 mm Hg Mar, Blood pressure diastolic 68 mm Hg Mar, MEDICATIONS Medication SIG (Take, Route, Frequency, Duration) Notes Start Da te End Date Status Gabapentin 300 MG 1 capsule [...] 60 MG 1 capsule Orally Daily Active OneTouch Verio - as directed In Vitro five times daily as needed for 30 days Active Paper Tape 1"x12yd - as directed topically Daily for 30 day(s) Active Doxycycline Hyclate 100 MG 1 tablet Orally twice a day for 10 da y(s) October, Not-Taking Kerlix Bandage Roll 4.5"x9.3' - as directed topically Daily for 30 da y(s) Active Terconazole 0.8 % 1 applicatorful at bedtime Vaginal Once a day for 3 day(s) Not-Taking Multivitamin 1 tab Orally daily Acti ve Levaquin 750 MG 1 tablet Orally Once a day for 30 day(s) Not-Taking Kerlix Gauze Roll Large - as directed topically Daily for 30 day (s) Mar, Active One Touch Delica 33 gauge 1 lancet _ 5 times daily as needed for 30 days Jun, Active Saline 0.9 % q.s. 60ml topically Daily for 30 day(s) 2017 Not-Taking Triamcinolone Acetonide 0.1 % 1 application Externally Twice a day for 30 Days Active Fluconazole 100 MG 1 tablet Orally for 10 day(s) Mar, 020 Active Metformin HCl 1000 MG take one [...] Vasagar 55 units subcutaneously twice daily Active Severiano SoloStar 300 UNIT/ML 63units bid Subcutaneous bid for 30 days Not-Taking Macrobid 100 MG Orally every 12 hrs May, Not-Taking Gauze Bandage 4" as directed topically twice daily for 1 month Mar, Active PROCEDURES Procedure Date Ordered Result Body Site LIDOCAINE 4% CREAM TOPICAL 2020-04-25 N/A RESULTS No Results REASON FOR VISIT Right foot wound MEDICAL (GENERAL) HISTORY Type Description Date Medical [...] wound vac, iv vanco[facility]-09[facility]13[facility] Hospitalization History Left femur fx Hospitalization History right foot toe removal 03/12/2018 Hospitalization History right foot infection 10/2019 Goals Section No Information Health Concerns No Information MEDICAL EQUIPMENT No Information MENTAL STATUS No Information FUNCTIONAL STATUS No Information ASSESSMENTS Encounter Date Diagnosis Assessment Notes Treatment Notes Treatm ent Clinical Notes Mar, Type 2 diabetes mellitus with foot ulcer (ICD-10 - E11.621) Mar, Non-pressure chronic ulcer o f other part of right foot with fat layer exposed (ICD-10 - L97.512) Mar, Non-pressure chronic ulcer o f other part of left foot with fat layer exposed (ICD-10 - L97.522) Mar, Other SALINE LOT XM14 8 EXP 04/19 USED BY CRISTIANA TO APPLY TISSUE PRODUCT PLAN OF TREATMENT Next Appt Details 1 Week Reason: Provider Name:Saundra Carlos 05-16 09:30:00 AM, [place], [address], Provider Name:Saundra Carlos 05-29 09:30:00 AM, [place], [address], Insurance Providers Payer Name Payer Address Payer Phone Insured Name Patient Relati onship to Insured Coverage Start Date Coverage End Date [facility] [address] [facility] [address] KIYA ORTIZ self
--- OUTSIDE RECORDS SUMMARY | 2020-07-17 18:23 | CCD ---
Author Author [facility] Organization [facility] Address Unknown Phone Unavailable Care Team Providers Care Server Service Assistant Name Role Phone Heaven Thomas Unavailable PROBLEMS Type Condition ICD9-CM Code [id number] Code Onset Dates Condition S tatus SNOMED Code Notes Problem Bipolar affective disorder, currently depressed, moderate F31.32 Active 133215743 Problem Group B streptococcal infection A49.1 Active 355944763 Problem Vaginal candidiasis B37.3 Active 54893809 Problem UTI (urinary tract infection) N39.0 Active 68 317617 Problem Major depression F32.9 Active 119389378 Problem Cervical cancer screening Z12.4 Active 491809 001 Problem Breast cancer screening Z12.39 Active 45038269 6 Problem Pure hypercholesterolemia E78.00 Active 120070 004 Problem Postoperative infection T81.4XXA Active 2996457 7 Problem Amputation at midfoot, right, sequela S98.311S A ctive 903557214 Problem Chronic diabetic ulcer of left foot determined by exam ination E11.621 Active 3346041703047 Problem Osteomyelitis of foot, right, acute M86.171 Acti ve 03015703 Problem Eczema, unspecified type L30.9 Active 1548901 0 Problem Type 2 diabetes mellitus with diabetic neuropathy E11.40 Active 3734250798405 Problem History of osteomyelitis Z87.39 Active 3534129 00 Problem Acute cystitis with hematuria N30.01 Active 81 700791 Problem Diabetic peripheral neuropathy E11.42 Active 4 99268645 Problem Dysuria R30.0 Active 16081063 Problem HTN (hypertension) I10 Active 95070012 Problem JOHN (generalized anxiety disorder) F41.1 Activ e 55059604 Problem Morbid obesity due to excess calories E66.01 Ac tive 951638878 Problem Neurotic excoriations L98.1 Active 51463082 Problem MRSA infection A49.02 Active 193382396 Problem 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.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 Active 255833053170349 Problem Disruption of internal opera tion (surgical) wound, not elsewhere classified, initial encounter T81.32XA Active 206885 008 Problem Myalgia M79.1 Active 16638626 Problem Acute hematogenous osteomyelitis, right ankle and foot M86.071 Active 539856316 Problem Maculopapular rash R21 Active 867564599 Problem Non-healing amputation site T87.89 Active 2402 45493 Problem Type 2 diabetes mellitus with foot ulcer E11.621 Active 066532778 Problem Foot abscess, right L02.611 Active 053987762690 14122 Problem Type 2 diabetes mellitus with other specified complication E11.69 Active 24370364 Problem MSSA (methicillin susceptible Staphylococcus aureus) A49.01 Active 345294594 Problem Phantom limb pain G54.6 Active 8411003316693 Problem Chronic osteomyelitis of right foot M86.671 Acti ve 397984923 Problem Non-pressure chronic ulcer o f other part of right foot with fat layer exposed L97.512 Active 557583300 Problem Non-pressure chronic ulcer o f other part of left foot with fat layer exposed L97.522 Active 895545422 Problem Obesity E66.9 Active 111792062 Problem Calcaneal spur, right foot M77.31 Active 83176 3831638421 Problem Non-pressure chronic ulcer o f other part of right foot limited to breakdown of skin L97.511 Active 570787987 ALLERGIES Allergen (clinical drug ingredient) Drug/Non Drug Allergy do cumented on EMR Reaction Allergy Type Onset Date Status Sudafed(ND Code:[address]-81) Hives Drug Allergy Active Trazodone 100 Hives Drug Allergy Active cefprozil Cefprozil(NDC Code:[address]-11) Hives Drug Allergy Active fluoxetine Prozac Hives Drug Allergy Active ENCOUNTERS from 1967 to 2020-05-03 Encounter Location Date Provider Diagnosis [address] [address] Apr, Heaven Thomas IMMUNIZATIONS Vaccine Route Administration Date Status Influenza [...] grade Language: Question Answer Notes Languages spoken: Czech BMI Care Goal Follow-Up Question Answer Notes [...] Information RESULTS No Results REASON FOR VISIT no show MEDICAL (GENERAL) HISTORY Type Description Date Medical [...] Provider Name:Saundra Carlos, 05-09 10:30:00 AM, [address] [facility], [place], [address], Insurance Providers Payer Name Payer Address Payer Phone Insured Name Patient Relati onship to Insured Coverage Start Date Coverage End Date [facility] COMM[facility] [address] [facility] [address] KIYA ORTIZ self
--- OUTSIDE RECORDS SUMMARY | 2020-07-17 18:23 | CCD ---
Author Author [facility] Organization [facility] Address Unknown Phone Unavailable Care Team Providers Care Oracle Fusion Developer Name Role Phone Saundra Carlos Unavailable PROBLEMS Type Condition ICD9-CM Code [id number] Code Onset Dates Condition S tatus SNOMED Code Notes Problem Bipolar affective disorder, currently depressed, moderate F31.32 Active 459299787 Problem Group B streptococcal infection A49.1 Active 380207699 Problem Vaginal candidiasis B37.3 Active 76672847 Problem UTI (urinary tract infection) N39.0 Active 68 891626 Problem Major depression F32.9 Active 421174559 Problem Cervical cancer screening Z12.4 Active 742609 001 Problem Breast cancer screening Z12.39 Active 60333508 6 Problem Pure hypercholesterolemia E78.00 Active 276783 004 Problem Postoperative infection T81.4XXA Active 9813124 7 Problem Amputation at midfoot, right, sequela S98.311S A ctive 697437326 Problem Chronic diabetic ulcer of left foot determined by exam ination E11.621 Active 6241059925948 Problem Osteomyelitis of foot, right, acute M86.171 Acti ve 50756832 Problem Eczema, unspecified type L30.9 Active 4340818 0 Problem Type 2 diabetes mellitus with diabetic neuropathy E11.40 Active 2732297330878 Problem History of osteomyelitis Z87.39 Active 8589635 00 Problem Acute cystitis with hematuria N30.01 Active 81 262860 Problem Diabetic peripheral neuropathy E11.42 Active 4 59234615 Problem Dysuria R30.0 Active 08256682 Problem HTN (hypertension) I10 Active 82719775 Problem JOHN (generalized anxiety disorder) F41.1 Activ e 28498031 Problem Morbid obesity due to excess calories E66.01 Ac tive 603553332 Problem Neurotic excoriations L98.1 Active 15990837 Problem MRSA infection A49.02 Active 721049457 Problem 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.471 Active 416589771177418 Problem Disruption of internal opera tion (surgical) wound, not elsewhere classified, initial encounter T81.32XA Active 039552 008 Problem Myalgia M79.1 Active 00915278 Problem Acute hematogenous osteomyelitis, right ankle and foot M86.071 Active 687942905 Problem Maculopapular rash R21 Active 524581666 Problem Non-healing amputation site T87.89 Active 8012 72923 Problem Type 2 diabetes mellitus with foot ulcer E11.621 Active 427189679 Problem Foot abscess, right L02.611 Active 505858315356 04826 Problem Type 2 diabetes mellitus with other specified complication E11.69 Active 87218065 Problem MSSA (methicillin susceptible Staphylococcus aureus) A49.01 Active 286838261 Problem Phantom limb pain G54.6 Active 5118600359383 Problem Chronic osteomyelitis of right foot M86.671 Acti ve 828239807 Problem Non-pressure chronic ulcer o f other part of right foot with fat layer exposed L97.512 Active 542334464 Problem Non-pressure chronic ulcer o f other part of left foot with fat layer exposed L97.522 Active 658027287 Problem Obesity E66.9 Active 999819676 Problem Calcaneal spur, right foot M77.31 Active 68794 9724881680 Problem Non-pressure chronic ulcer o f other part of right foot limited to breakdown of skin L97.511 Active 873646114 ALLERGIES Allergen (clinical drug ingredient) Drug/Non Drug Allergy do cumented on EMR Reaction Allergy Type Onset Date Status Sudafed([facility] Code:[address]-30) Hives Drug Allergy Active Trazodone 100 Hives Drug Allergy Active cefprozil Cefprozil(NDC Code:[address]-01) Hives Drug Allergy Active fluoxetine Prozac Hives Drug Allergy Active ENCOUNTERS from 1967 to 2020-04-24 Encounter Location Date Provider Diagnosis [facility] Wound Care [address] [place] [address] Mar Saundra Carlos Type 2 diabetes mellitus with foot ulcer E11.621 ; Non-pressure chronic ulcer of other part of right foot with fat layer exposed L97.512 and Immunization not carried out because of patient refusal Z28.21 IMMUNIZATIONS Vaccine Route Administration Date Status Influenza [...] grade Language: Question Answer Notes Languages spoken: Guamanian BMI Care Goal Follow-Up Question Answer Notes Above Normal BMI Follow-Up Dietary management educatio n, guidance, and counseling Tobacco Use: Question Answer Notes Are you a: never smoker REASON FOR REFERRAL No Information VITAL SIGNS Weight 252 lbs Mar, Weight-kg per pt kg Mar, Height 62 in Mar, BMI 46.09 kg/m2 Mar, Heart Rate 90 /min Mar, Respiratory Rate 18 /min Mar, Temperature 97.0 degrees Fahrenheit Mar, Oximetry 98 Mar, Blood pressure systolic 157 mm Hg Mar, Blood pressure diastolic 77 mm Hg Mar, MEDICATIONS Medication SIG (Take, Route, Frequency, Duration) Start Date En d Date Status Toujeo Insulin Injection 300 ml 63 units subcutaneously bid Not-Taking Bactrim DS 800-160 1 tablet orally twice a day for 10 days October, Not-Taking Lasix 40 MG 1 tablet Orally Once a day for 30 day(s) Active Ibuprofen 600 MG 1 tablet with food or milk as needed Orally Amisha ly as needed Active Losartan Potassium 100 MG 1 tablet Orally Once a day Active Levocetirizine Dihydrochloride 5 MG 1 tablet in the ev ening Orally Once a day for 30 day(s) Active Toujeo SoloStar 300 UNIT/ML 63units bid Subcutaneous bid for 30 day s Not-Taking Lisinopril 10 MG 1 tablet Orally Once a day for 30 day(s) Not-Taking Multivitamin 1 tab Orally daily Active Cymbalta 60 MG 1 capsule Orally Daily Act betsy OneTouch Verio - as directed In Vitro five times daily as needed for 30 days Active Terconazole 0.8 % 1 applicatorful at bedtime Vaginal Once a day for 3 day(s) Not-Taking Ascorbic Acid 500 MG 1 tablet Orally Once a day Not-Taking One Touch Delica 33 gauge 1 lancet _ 5 times daily as needed for 30 days Jun, Active Gauze Bandage 4" as directed topically twice daily for 1 month Active BD Pen Needle Mini U/F 31G X 5 MM as directed subcutan eously 6x /day for 30 days Active Amoxicillin-Pot Clavulanate 875-125 MG 1 tablet Orally every 12 hrs for 14 day(s) Not-Taking HydrOXYzine HCl 25 MG 1 tablet as needed Orally tw ice a day as needed for 30 Days Active Kerlix Bandage Roll 4.5"x9.3' - as directed topically Daily for 30 day(s) Active Doxycycline Hyclate 100 MG 1 tablet Orally twice a day for 1 0 day(s) October, Not-Taking Macrobid 100 MG Orally every 12 hrs May, Not- Taking May Have - Vasagar 55 units subcutaneously twice daily Active Trulicity 1.5 MG/0.5ML as directed Subcutaneous Active Dicloxacillin Sodium 500 MG 1 capsule 1 hour before or 2 hours after meals Orally every 6 hrs for 10 day(s) Mar, Active Paper Tape 1"x12yd - as directed topically Daily for 30 day(s) Active Gauze Bandage 4" as directed topically twice daily for 1 month 2017 Active AmLODIPine Besylate 10 MG 1 tablet Orally Once a day Active Saline 0.9 % q.s. 60ml topically Daily for 30 day(s) Mar, Not-Taking Kerlix Gauze Roll Large - as directed topically Daily for 30 day(s) Mar, Active Levaquin 750 MG 1 tablet Orally Once a day for 30 day(s) Not-Taking Atorvastatin Calcium 10 MG 1 tab Orally Once a day for 30 days Active Fluconazole 100 MG 1 tablet Orally for 10 day(s) Mar, Active Humalog KwikPen 100 UNIT/ML 20units or < per sliding s [place] Subcutaneous tid c meals for 30 day(s) Not-Taking Admelog 100 UNIT/ML as directed Subcutaneous before meals Active Aspirin 81 MG 1 tablet Orally Once a day for 30 day(s) Active Metformin HCl 1000 MG take one tablet by mouth 2 times a day Orally Active Triamcinolone Acetonide 0.1 % 1 application Externally Twice a day for 30 Days Active Gabapentin 300 MG 1 capsule Orally three times a day Active PROCEDURES Procedure Date Ordered Result Body Site LIDOCAINE 4% CREAM TOPICAL 2020-04-11 N/A RESULTS No Results REASON FOR VISIT [...] STATUS No Information ASSESSMENTS Encounter Date Diagnosis Notes Mar, Immunization not carried out because of patient refusal (ICD-10 - Z28.21) Mar, Non-pressure chronic ulcer o f other part of right foot with fat layer exposed (ICD-10 - L97.512) Mar, Type 2 diabetes mellitus with foot ulcer (ICD-10 - E11.621) PLAN OF TREATMENT Next Appt Details 1 Week Reason: Provider Name:Saundra Carlos, 04-25 08:30:00 AM, [address] [place], [address], Provider Name:Saundra Carlos 05-02 09:00:00 AM, [address] [place], [address], Provider Name:Heaven Thomas, 01:00:00 PM, [address] [place], [address], Insurance Providers Payer Name Payer Address Payer Phone Insured Name Patient Relati onship to Insured Coverage Start Date Coverage End Date [facility] [address] [facility] [phone] KIYA ORTIZ self
--- OUTSIDE RECORDS SUMMARY | 2020-07-17 18:23 | CCD ---
Author Author [facility] Organization [facility] Address Unknown Phone Unavailable Care Team Providers Care Ladle Repairman Name Role Phone Saundra Carlos Unavailable PROBLEMS Type Condition ICD9-CM Code [id number] Code Onset Dates Condition S tatus SNOMED Code Notes Problem Bipolar affective disorder, currently depressed, moderate F31.32 Active 328508100 Problem Group B streptococcal infection A49.1 Active 306956085 Problem Vaginal candidiasis B37.3 Active 72073549 Problem UTI (urinary tract infection) N39.0 Active 68 458961 Problem Major depression F32.9 Active 387962676 Problem Cervical cancer screening Z12.4 Active 697461 001 Problem Breast cancer screening Z12.39 Active 59104751 6 Problem Pure hypercholesterolemia E78.00 Active 311148 004 Problem Postoperative infection T81.4XXA Active 8014939 7 Problem Amputation at midfoot, right, sequela S98.311S A ctive 145672835 Problem Chronic diabetic ulcer of left foot determined by exam ination E11.621 Active 4714814891655 Problem Osteomyelitis of foot, right, acute M86.171 Acti ve 96585853 Problem Eczema, unspecified type L30.9 Active 1832325 0 Problem Type 2 diabetes mellitus with diabetic neuropathy E11.40 Active 7988134283537 Problem History of osteomyelitis Z87.39 Active 0654581 00 Problem Acute cystitis with hematuria N30.01 Active 81 839321 Problem Diabetic peripheral neuropathy E11.42 Active 4 56201485 Problem Dysuria R30.0 Active 37752327 Problem HTN (hypertension) I10 Active 82260963 Problem JOHN (generalized anxiety disorder) F41.1 Activ e 43705718 Problem Morbid obesity due to excess calories E66.01 Ac tive 480249200 Problem Neurotic excoriations L98.1 Active 12170040 Problem MRSA infection A49.02 Active 654339875 Problem 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.471 Active 523886227497865 Problem Disruption of internal opera tion (surgical) wound, not elsewhere classified, initial encounter T81.32XA Active 842439 008 Problem Myalgia M79.1 Active 71270668 Problem Acute hematogenous osteomyelitis, right ankle and foot M86.071 Active 077922133 Problem Maculopapular rash R21 Active 650099450 Problem Non-healing amputation site T87.89 Active 6382 25694 Problem Type 2 diabetes mellitus with foot ulcer E11.621 Active 534206881 Problem Foot abscess, right L02.611 Active 524116303384 65493 Problem Type 2 diabetes mellitus with other specified complication E11.69 Active 90063416 Problem MSSA (methicillin susceptible Staphylococcus aureus) A49.01 Active 877375493 Problem Phantom limb pain G54.6 Active 3274450602890 Problem Chronic osteomyelitis of right foot M86.671 Acti ve 074690733 Problem Non-pressure chronic ulcer o f other part of right foot with fat layer exposed L97.512 Active 760587932 Problem Non-pressure chronic ulcer o f other part of left foot with fat layer exposed L97.522 Active 267626683 Problem Obesity E66.9 Active 507896229 Problem Calcaneal spur, right foot M77.31 Active 54988 5599187442 Problem Non-pressure chronic ulcer o f other part of right foot limited to breakdown of skin L97.511 Active 243260522 ALLERGIES Allergen (clinical drug ingredient) Drug/Non Drug Allergy do cumented on EMR Reaction Allergy Type Onset Date Status Sudafed([facility] Code:[address]-67) Hives Drug Allergy Active Trazodone 100 Hives Drug Allergy Active cefprozil Cefprozil([facility]C Code:[address]-07) Hives Drug Allergy Active fluoxetine Prozac Hives Drug Allergy Active ENCOUNTERS from 1967 to 2020-06-12 Encounter Location Date Provider Diagnosis [facility] Wound Care [address] [place] [address] May Saundra Gypsum IMMUNIZATIONS Vaccine Route Administration Date Status Influenza [...] grade Language: Question Answer Notes Languages spoken: Belarusian BMI Care Goal Follow-Up Question Answer Notes [...] Orally for 10 day(s) Mar, 020 Active Triamcinolone Acetonide 0.1 % 1 application Externally Twice a day for 30 Days Active Gabapentin 300 MG 1 capsule Orally three times a day Active Dicloxacillin Sodium 500 MG 1 capsule 1 hour before or 2 hours after meals Orally every 6 hrs for 10 day(s) Mar, Active PROCEDURES No Information RESULTS No Results REASON FOR VISIT [facility] MEDICAL (GENERAL) HISTORY Type [...] TREATMENT Next Appt Details Provider Name:Saundra Carlos, 06-27 08:00:00 AM, [address] [place], [address], Insurance Providers Payer Name Payer Address Payer Phone Insured Name Patient Relati onship to Insured Coverage Start Date Coverage End Date [facility] PL[facility] [address] [facility] [phone] KIYA ORTIZ self
--- OUTSIDE RECORDS SUMMARY | 2020-07-17 18:23 | CCD ---
Author Author [facility] Organization [facility] Address Unknown Phone Unavailable Care Team Providers Care Shells Inspector Name Role Phone Saundra Carlos Unavailable PROBLEMS Type Condition ICD9-CM Code [id number] Code Onset Dates Condition S tatus SNOMED Code Notes Problem Bipolar affective disorder, currently depressed, moderate F31.32 Active 365709677 Problem Group B streptococcal infection A49.1 Active 396601015 Problem Vaginal candidiasis B37.3 Active 87775580 Problem UTI (urinary tract infection) N39.0 Active 68 860827 Problem Major depression F32.9 Active 485957036 Problem Cervical cancer screening Z12.4 Active 124324 001 Problem Breast cancer screening Z12.39 Active 90346329 6 Problem Pure hypercholesterolemia E78.00 Active 428733 004 Problem Postoperative infection T81.4XXA Active 3290004 7 Problem Amputation at midfoot, right, sequela S98.311S A ctive 835000995 Problem Chronic diabetic ulcer of left foot determined by exam ination E11.621 Active 7349812694965 Problem Osteomyelitis of foot, right, acute M86.171 Acti ve 86374734 Problem Eczema, unspecified type L30.9 Active 8330902 0 Problem Type 2 diabetes mellitus with diabetic neuropathy E11.40 Active 9997874743224 Problem History of osteomyelitis Z87.39 Active 6944930 00 Problem Acute cystitis with hematuria N30.01 Active 81 604819 Problem Diabetic peripheral neuropathy E11.42 Active 4 46119383 Problem Dysuria R30.0 Active 63566672 Problem HTN (hypertension) I10 Active 88210311 Problem JOHN (generalized anxiety disorder) F41.1 Activ e 14574502 Problem Morbid obesity due to excess calories E66.01 Ac tive 795719915 Problem Neurotic excoriations L98.1 Active 97416748 Problem MRSA infection A49.02 Active 832281602 Problem 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.471 Active 662380090888711 Problem Disruption of internal opera tion (surgical) wound, not elsewhere classified, initial encounter T81.32XA Active 153101 008 Problem Myalgia M79.1 Active 86683931 Problem Acute hematogenous osteomyelitis, right ankle and foot M86.071 Active 559425667 Problem Maculopapular rash R21 Active 393731525 Problem Non-healing amputation site T87.89 Active 7712 16511 Problem Type 2 diabetes mellitus with foot ulcer E11.621 Active 271830584 Problem Foot abscess, right L02.611 Active 489345158573 03257 Problem Type 2 diabetes mellitus with other specified complication E11.69 Active 08476356 Problem MSSA (methicillin susceptible Staphylococcus aureus) A49.01 Active 531227883 Problem Phantom limb pain G54.6 Active 3529258467979 Problem Chronic osteomyelitis of right foot M86.671 Acti ve 620342410 Problem Non-pressure chronic ulcer o f other part of right foot with fat layer exposed L97.512 Active 691394505 Problem Non-pressure chronic ulcer o f other part of left foot with fat layer exposed L97.522 Active 396232536 Problem Obesity E66.9 Active 386333237 Problem Calcaneal spur, right foot M77.31 Active 89598 5171811044 Problem Non-pressure chronic ulcer o f other part of right foot limited to breakdown of skin L97.511 Active 302982397 ALLERGIES Allergen (clinical drug ingredient) Drug/Non Drug Allergy do cumented on EMR Reaction Allergy Type Onset Date Status Sudafed([facility] Code:[address]-90) Hives Drug Allergy Active Trazodone 100 Hives Drug Allergy Active cefprozil Cefprozil([facility]C Code:[address]-95) Hives Drug Allergy Active fluoxetine Prozac Hives Drug Allergy Active ENCOUNTERS from 1967 to 2020-06-08 Encounter Location Date Provider Diagnosis [facility] Wound Care [address] [place] [address] May Saundra Hickory Type 2 diabetes mellitus with foot ulcer [...] grade Language: Question Answer Notes Languages spoken: Macedonian BMI Care Goal Follow-Up Question Answer Notes Above Normal BMI Follow-Up Dietary management educatio n, guidance, and counseling Tobacco Use: Question Answer Notes Are you a: never smoker REASON FOR REFERRAL No Information VITAL SIGNS Weight 252 lbs May, Weight-kg PER PT kg May, Height 62 in May, BMI 46.09 kg/m2 May, Heart Rate 81 /min May, Respiratory Rate 18 /min May, Temperature 97.2 degrees Fahrenheit May, Oximetry 98% May, Blood pressure systolic 170 mm Hg May, Blood pressure diastolic 77 mm Hg May, MEDICATIONS Medication SIG (Take, [...] day(s) Mar, Active PROCEDURES from 1967 to 2020-06-08 Procedure Date Ordered Result Body Site LIDOCAINE 4% CREAM TOPICAL 2020-06-05 N/A RESULTS No Results REASON FOR VISIT [...] wound vac, iv vanco, [facility] [...] Details 1 Week Reason: Provider Name:Saundra Carlos 06-12 08:00:00 AM, [place], [address], Provider Name:Saundra Carlos 06-27 08:00:00 AM, [place], [address], Insurance Providers Payer Name Payer Address Payer Phone Insured Name Patient Relati onship to Insured Coverage Start Date Coverage End Date [facility] PLAN [facility] [address] [facility] [address] KIYA ORTIZ self
--- OUTSIDE RECORDS SUMMARY | 2020-07-17 18:23 | CCD ---
Author Author [facility] Organization [facility] Address Unknown Phone Unavailable Care Team Providers Care Supervisor [place] Name Role Phone Saundra Carlos Unavailable PROBLEMS Type Condition ICD9-CM Code [id number] Code Onset Dates Condition S tatus SNOMED Code Notes Problem Bipolar affective disorder, currently depressed, moderate F31.32 Active 939799105 Problem Group B streptococcal infection A49.1 Active 605380211 Problem Vaginal candidiasis B37.3 Active 63707215 Problem UTI (urinary tract infection) N39.0 Active 68 150349 Problem Major depression F32.9 Active 319914297 Problem Cervical cancer screening Z12.4 Active 406384 001 Problem Breast cancer screening Z12.39 Active 48804399 6 Problem Pure hypercholesterolemia E78.00 Active 194177 004 Problem Postoperative infection T81.4XXA Active 7199087 7 Problem Amputation at midfoot, right, sequela S98.311S A ctive 922742329 Problem Chronic diabetic ulcer of left foot determined by exam ination E11.621 Active 6501093957477 Problem Osteomyelitis of foot, right, acute M86.171 Acti ve 25843924 Problem Eczema, unspecified type L30.9 Active 8660582 0 Problem Type 2 diabetes mellitus with diabetic neuropathy E11.40 Active 2458066849829 Problem History of osteomyelitis Z87.39 Active 1284210 00 Problem Acute cystitis with hematuria N30.01 Active 81 300323 Problem Diabetic peripheral neuropathy E11.42 Active 4 50587221 Problem Dysuria R30.0 Active 33981058 Problem HTN (hypertension) I10 Active 15953376 Problem JOHN (generalized anxiety disorder) F41.1 Activ e 30624581 Problem Morbid obesity due to excess calories E66.01 Ac tive 550612252 Problem Neurotic excoriations L98.1 Active 56468458 Problem MRSA infection A49.02 Active 979352851 Problem 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.471 Active 730981308021510 Problem Disruption of internal opera tion (surgical) wound, not elsewhere classified, initial encounter T81.32XA Active 470117 008 Problem Myalgia M79.1 Active 42474067 Problem Acute hematogenous osteomyelitis, right ankle and foot M86.071 Active 761841064 Problem Maculopapular rash R21 Active 757443499 Problem Non-healing amputation site T87.89 Active 3452 58295 Problem Type 2 diabetes mellitus with foot ulcer E11.621 Active 540145160 Problem Foot abscess, right L02.611 Active 350977216479 29229 Problem Type 2 diabetes mellitus with other specified complication E11.69 Active 78573939 Problem MSSA (methicillin susceptible Staphylococcus aureus) A49.01 Active 974087609 Problem Phantom limb pain G54.6 Active 4979833533508 Problem Chronic osteomyelitis of right foot M86.671 Acti ve 680838216 Problem Non-pressure chronic ulcer o f other part of right foot with fat layer exposed L97.512 Active 318127352 Problem Non-pressure chronic ulcer o f other part of left foot with fat layer exposed L97.522 Active 751239605 Problem Obesity E66.9 Active 106883749 Problem Calcaneal spur, right foot M77.31 Active 04602 1908712709 Problem Non-pressure chronic ulcer o f other part of right foot limited to breakdown of skin L97.511 Active 625945647 ALLERGIES Allergen (clinical drug ingredient) Drug/Non Drug Allergy do cumented on EMR Reaction Allergy Type Onset Date Status Sudafed([facility] Code:[address]-55) Hives Drug Allergy Active Trazodone 100 Hives Drug Allergy Active cefprozil Cefprozil([facility] Code:[address]-31) Hives Drug Allergy Active fluoxetine Prozac Hives Drug Allergy Active ENCOUNTERS from 1967 to 2020-04-20 Encounter Location Date Provider Diagnosis [facility] Wound Care [address] [place] [address] Mar Saundra Carlos Type 2 diabetes mellitus with foot ulcer E11.621 and Non-pressure chronic ulcer of other part of right foot with fat layer exposed L97.512 IMMUNIZATIONS Vaccine Route Administration Date Status Influenza [...] grade Language: Question Answer Notes Languages spoken: Mosotho BMI Care Goal Follow-Up Question Answer Notes Above Normal BMI Follow-Up Dietary management educatio n, guidance, and counseling Tobacco Use: Question Answer Notes Are you a: never smoker REASON FOR REFERRAL No Information VITAL SIGNS Weight 252 lbs Mar, Weight-kg per pt kg Mar, Height 62 in Mar, BMI 46.09 kg/m2 Mar, Heart Rate 118 /min Mar, Respiratory Rate 19 /min Mar, Temperature 96.5 degrees Fahrenheit Mar, Oximetry 98 Mar, Blood pressure systolic 150 mm Hg Mar, Blood pressure diastolic 75 mm Hg Mar, MEDICATIONS Medication SIG (Take, [...] Result Body Site LIDOCAINE 4% CREAM TOPICAL 2020-04-04 N/A RESULTS No Results REASON FOR VISIT Right Foot Wound MEDICAL (GENERAL) HISTORY Type Description Date Medical [...] Information ASSESSMENTS Encounter Date Diagnosis Notes Mar, Non-pressure chronic ulcer o f other part of right foot with fat layer exposed (ICD-10 - L97.512) Mar, Type 2 diabetes mellitus with foot ulcer (ICD-10 - E11.621) PLAN OF TREATMENT Next Appt Details 1 Week Reason: Provider Name:Saundra Carlos, - 08:30:00 AM, [address] [place], [address], Provider Name:Heaven Thomas, 2020-04- 5 01:00:00 PM, [address] [place], [address], Insurance Providers Payer Name Payer Address Payer Phone Insured Name Patient Relati onship to Insured Coverage Start Date Coverage End Date [facility] COMM[facility] PLAN [facility] [address] [facility] [phone] KIYA ORTIZ self
--- OUTSIDE RECORDS SUMMARY | 2020-07-17 18:25 | CCD ---
Author Author [facility] Organization [facility] Address Unknown Phone Unavailable Care Team Providers Care Paint Grinder Name Role Phone BUNKER, R EM PA Unavailable Unavailable BUNKER, R EM PA Unavailable Unavailable BUNKER, R EM PA Unavailable Unavailable BUNKER, R EM PA Unavailable Unavailable BUNKER, R EM PA Unavailable Unavailable BUNKER, R EM PA Unavailable Unavailable BUNKER, R EM PA Unavailable Unavailable BUNKER, R EM PA Unavailable Unavailable BUNKER, R EM PA Unavailable Unavailable BUNKER, R EM PA Unavailable Unavailable BUNKER, R EM PA Unavailable Unavailable BUNKER, R EM PA Unavailable Unavailable BUNKER, R EM PA Unavailable Unavailable BUNKER, R EM PA Unavailable Unavailable BUNKER, R EM PA Unavailable Unavailable BUNKER, R EM PA Unavailable Unavailable BUNKER, R EM PA Unavailable Unavailable BUNKER, R EM PA Unavailable Unavailable BUNKER, R EM PA Unavailable Unavailable BUNKER, R EM PA Unavailable Unavailable BUNKER, R EM PA Unavailable Unavailable BUNKER, R EM PA Unavailable Unavailable BUNKER, R EM PA Unavailable Unavailable BUNKER, R EM PA Unavailable Unavailable BUNKER, R EM PA Unavailable Unavailable BUNKER, R EM PA Unavailable Unavailable BUNKER, R EM PA Unavailable Unavailable BUNKER, R EM PA Unavailable Unavailable BUNKER, R EM PA Unavailable Unavailable BUNKER, R EM PA Unavailable Unavailable BUNKER, R EM PA Unavailable Unavailable BUNKER, R EM PA Unavailable Unavailable BUNKER, R EM PA Unavailable Unavailable BUNKER, R EM PA Unavailable Unavailable BUNKER, R EM PA Unavailable Unavailable BUNKER, R EM PA Unavailable Unavailable BUNKER, R EM PA Unavailable Unavailable BUNKER, R EM PA Unavailable Unavailable BUNKER, R EM PA Unavailable Unavailable BUNKER, R EM PA Unavailable Unavailable BUNKER, R EM PA Unavailable Unavailable BUNKER, R EM PA Unavailable Unavailable BUNKER, R EM PA Unavailable Unavailable BUNKER, R EM PA Unavailable Unavailable BUNKER, R EM PA Unavailable Unavailable BUNKER, R EM PA Unavailable Unavailable BUNKER, R EM PA Unavailable Unavailable BUNKER, R EM PA Unavailable Unavailable BUNKER, R EM PA Unavailable Unavailable BUNKER, R EM PA Unavailable Unavailable BUNKER, R EM PA Unavailable Unavailable BUNKER, R EM PA Unavailable Unavailable BUNKER, R EM PA Unavailable Unavailable BUNKER, R EM PA Unavailable Unavailable BUNKER, R EM PA Unavailable Unavailable BUNKER, R EM PA Unavailable Unavailable Sanchezumpaletha F Brittni CARCAMO Unavailable Unavailable Daríonumpuramaria dolores, F Brittni MD Unavailable Unavailable Kunnumpuramaria dolores F Brittni MD Unavailable Unavailable Daríonumpuramaria dolores, F Brittni MD Unavailable Unavailable Kunnumpuramaria dolores F Brittni MD Unavailable Unavailable Daríonumpuramaria dolores F Brittni MD Unavailable Unavailable Daríonumpuramaria dolores F Brittni MD Unavailable Unavailable Kunnumpuramaria dolores F Brittni MD Unavailable Unavailable Kunnumpuramaria dolores F Brittni MD Unavailable Unavailable Kunnumpuramaria dolores F Brittni MD Unavailable Unavailable Kunnumpuramaria dolores F Brittni MD Unavailable Unavailable Daríonumpuramaria dolores F Brittni MD Unavailable Unavailable Kunnumpuramaria dolores F Brittni MD Unavailable Unavailable Kunnumpuramaria dolores F Brittni MD Unavailable Unavailable Kunnumpuramaria dolores F Brittni MD Unavailable Unavailable Kunnumpurath, F Brittni MD Unavailable Unavailable Kunnumpuramaria dolores, F Brittni MD Unavailable Unavailable Kunnumpurath, F Brittni MD Unavailable Unavailable Kunnumpurath, F Brittni MD Unavailable Unavailable Kunnumpurath, F Brittni MD Unavailable Unavailable Kunnumpurath, F Brittni MD Unavailable Unavailable Kunnumpurath, F Brittni MD Unavailable Unavailable Kunnumpurath, F Brittni MD Unavailable Unavailable Kunnumpurath, F Brittni MD Unavailable Unavailable Kunnumpurath, F Brittni MD Unavailable Unavailable Kunnumpurath, F Brittni MD Unavailable Unavailable Kunnumpurath, F Brittni MD Unavailable Unavailable Kunnumpurath, F Brittni MD Unavailable Unavailable Kunnumpurath, F Brittni MD Unavailable Unavailable Kunnumpurath, F Brittni MD Unavailable Unavailable Kunnumpurath, F Brittni MD Unavailable Unavailable Kunnumpurath, F Brittni MD Unavailable Unavailable Kunnumpurath, F Brittni MD Unavailable Unavailable Kunnumpurath, F Brittni MD Unavailable Unavailable Kunnumpurath, F Brittni MD Unavailable Unavailable Kunnumpurath, F Brittni MD Unavailable Unavailable Kunnumpurath, F Brittni MD Unavailable Unavailable Kunnumpurath, F Brittni MD Unavailable Unavailable COOK, B MARTHA SHUTTLE ROUTE VEHICLE OPERATOR Unavailable Unavailable COOK, B MARTHA SHUTTLE ROUTE VEHICLE OPERATOR Unavailable Unavailable COOK, B MARTHA SHUTTLE ROUTE VEHICLE OPERATOR Unavailable Unavailable COOK, B MARTHA SHUTTLE ROUTE VEHICLE OPERATOR Unavailable Unavailable COOK, B MARTHA SHUTTLE ROUTE VEHICLE OPERATOR Unavailable Unavailable COOK, B MARTHA SHUTTLE ROUTE VEHICLE OPERATOR Unavailable Unavailable COOK, B MARTHA SHUTTLE ROUTE VEHICLE OPERATOR Unavailable Unavailable COOK, B MARTHA SHUTTLE ROUTE VEHICLE OPERATOR Unavailable Unavailable COOK, B MARTHA SHUTTLE ROUTE VEHICLE OPERATOR Unavailable Unavailable COOK, B MARTHA SHUTTLE ROUTE VEHICLE OPERATOR Unavailable Unavailable COOK, B MARTHA SHUTTLE ROUTE VEHICLE OPERATOR Unavailable Unavailable COOK, B MARTHA SHUTTLE ROUTE VEHICLE OPERATOR Unavailable Unavailable COOK, B MARTHA SHUTTLE ROUTE VEHICLE OPERATOR Unavailable Unavailable COOK, B MARTHA SHUTTLE ROUTE VEHICLE OPERATOR Unavailable Unavailable COOK, B MARTHA SHUTTLE ROUTE VEHICLE OPERATOR Unavailable Unavailable COOK, B MARTHA SHUTTLE ROUTE VEHICLE OPERATOR Unavailable Unavailable COOK, B MARTHA SHUTTLE ROUTE VEHICLE OPERATOR Unavailable Unavailable COOK, B MARTHA SHUTTLE ROUTE VEHICLE OPERATOR Unavailable Unavailable COOK, B MARTHA SHUTTLE ROUTE VEHICLE OPERATOR Unavailable Unavailable COOK, B MARTHA SHUTTLE ROUTE VEHICLE OPERATOR Unavailable Unavailable COOK, B MARTHA SHUTTLE ROUTE VEHICLE OPERATOR Unavailable Unavailable COOK, B MARTHA SHUTTLE ROUTE VEHICLE OPERATOR Unavailable Unavailable COOK, B MARTHA SHUTTLE ROUTE VEHICLE OPERATOR Unavailable Unavailable COOK, B MARTHA SHUTTLE ROUTE VEHICLE OPERATOR Unavailable Unavailable COOK, B MARTHA SHUTTLE ROUTE VEHICLE OPERATOR Unavailable Unavailable COOK, B MARTHA SHUTTLE ROUTE VEHICLE OPERATOR Unavailable Unavailable COOK, B MARTHA SHUTTLE ROUTE VEHICLE OPERATOR Unavailable Unavailable COOK, B MARTHA SHUTTLE ROUTE VEHICLE OPERATOR Unavailable Unavailable COOK, B MARTHA SHUTTLE ROUTE VEHICLE OPERATOR Unavailable Unavailable COOK, B MARTHA SHUTTLE ROUTE VEHICLE OPERATOR Unavailable Unavailable COOK, B MARTHA SHUTTLE ROUTE VEHICLE OPERATOR Unavailable Unavailable COOK, B MARTHA SHUTTLE ROUTE VEHICLE OPERATOR Unavailable Unavailable COOK, B MARTHA SHUTTLE ROUTE VEHICLE OPERATOR Unavailable Unavailable COOK, B MARTHA SHUTTLE ROUTE VEHICLE OPERATOR Unavailable Unavailable COOK, B MARTHA SHUTTLE ROUTE VEHICLE OPERATOR Unavailable Unavailable COOK, B MARTHA SHUTTLE ROUTE VEHICLE OPERATOR Unavailable Unavailable COOK, B MARTHA SHUTTLE ROUTE VEHICLE OPERATOR Unavailable Unavailable COOK, B MARTHA SHUTTLE ROUTE VEHICLE OPERATOR Unavailable Unavailable COOK, B MARTHA SHUTTLE ROUTE VEHICLE OPERATOR Unavailable Unavailable COOK, B MARTHA SHUTTLE ROUTE VEHICLE OPERATOR Unavailable Unavailable COOK, B MARTHA SHUTTLE ROUTE VEHICLE OPERATOR Unavailable Unavailable COOK, B MARTHA SHUTTLE ROUTE VEHICLE OPERATOR Unavailable Unavailable COOK, B MARTHA SHUTTLE ROUTE VEHICLE OPERATOR Unavailable Unavailable COOK, B MARTHA SHUTTLE ROUTE VEHICLE OPERATOR Unavailable Unavailable COOK, B MARTHA SHUTTLE ROUTE VEHICLE OPERATOR Unavailable Unavailable COOK, B MARTHA SHUTTLE ROUTE VEHICLE OPERATOR Unavailable Unavailable COOK, B MARTHA SHUTTLE ROUTE VEHICLE OPERATOR Unavailable Unavailable COOK, B MARTHA SHUTTLE ROUTE VEHICLE OPERATOR Unavailable Unavailable COOK, B MARTHA SHUTTLE ROUTE VEHICLE OPERATOR Unavailable Unavailable COOK, B MARTHA SHUTTLE ROUTE VEHICLE OPERATOR Unavailable Unavailable COOK, B MARTHA SHUTTLE ROUTE VEHICLE OPERATOR Unavailable Unavailable COOK, B MARTHA SHUTTLE ROUTE VEHICLE OPERATOR Unavailable Unavailable COOK, B MARTHA SHUTTLE ROUTE VEHICLE OPERATOR Unavailable Unavailable COOK, B MARTHA SHUTTLE ROUTE VEHICLE OPERATOR Unavailable Unavailable COOK, B MARTHA SHUTTLE ROUTE VEHICLE OPERATOR Unavailable Unavailable COOK, B MARTHA SHUTTLE ROUTE VEHICLE OPERATOR Unavailable Unavailable COOK, B MARTHA SHUTTLE ROUTE VEHICLE OPERATOR Unavailable Unavailable COOK, B MARTHA SHUTTLE ROUTE VEHICLE OPERATOR Unavailable Unavailable COOK, B MARTHA SHUTTLE ROUTE VEHICLE OPERATOR Unavailable Unavailable COOK, B MARTHA SHUTTLE ROUTE VEHICLE OPERATOR Unavailable Unavailable COOK, B MARTHA SHUTTLE ROUTE VEHICLE OPERATOR Unavailable Unavailable COOK, B MARTHA SHUTTLE ROUTE VEHICLE OPERATOR Unavailable Unavailable COOK, B MARTHA SHUTTLE ROUTE VEHICLE OPERATOR Unavailable Unavailable COOK, B MARTHA SHUTTLE ROUTE VEHICLE OPERATOR Unavailable Unavailable [facility], [id number] Unavailable [phone] [facility], [id number] Unavailable [phone] [facility], [id number] Unavailable [phone] [facility], [id number] Unavailable [phone] [facility], [id number] Unavailable [phone] [facility], [id number] Unavailable [phone] [facility], [id number] Unavailable [phone] [facility], [id number] Unavailable [phone] [facility], [id number] Unavailable [phone] [facility], [id number] Unavailable [phone] [facility], [id number] Unavailable [phone] [facility] Unavailable Unavailable Kunnumpurath, F Brittni MD Unavailable Unavailable Kunnumpurath, F Brittni MD Unavailable Unavailable Kunnumpurath, F Brittni MD Unavailable Unavailable Kunnumpurath, F Brittni MD Unavailable Unavailable Kunnumpurath, F Brittni MD Unavailable Unavailable Kunnumpurath, F Brittni MD Unavailable Unavailable Kunnumpurath, F Brittni MD Unavailable Unavailable Kunnumpurath, F Brittni MD Unavailable Unavailable Kunnumpurath, F Brittni MD Unavailable Unavailable Kunnumpurath, F Brittni MD Unavailable Unavailable Kunnumpurath, F Brittni MD Unavailable Unavailable Kunnumpurath, F Brittni MD Unavailable Unavailable Kunnumpurath, F Brittni MD Unavailable Unavailable Kunnumpurath, F Brittni MD Unavailable Unavailable Kunnumpurath, F Brittni MD Unavailable Unavailable Kunnumpurath, F Brittni MD Unavailable Unavailable Kunnumpurath, F Brittni MD Unavailable Unavailable Kunnumpurath, F Brittni MD Unavailable Unavailable Kunnumpurath, F Brittni MD Unavailable Unavailable Kunnumpurath, F Brittni MD Unavailable Unavailable Kunnumpurath, F Brittni MD Unavailable Unavailable Kunnumpurath, F Brittni MD Unavailable Unavailable Kunnumpurath, F Rbittni MD Unavailable Unavailable Kunnumpurath, F Brittni MD Unavailable Unavailable Kunnumpurath, F Brittni MD Unavailable Unavailable Kunnumpurath, F Brittni MD Unavailable Unavailable Kunnumpurath, F Brittni MD Unavailable Unavailable Kunnumpurath, F Brittni MD Unavailable Unavailable Kunnumpurath, F Brittni MD Unavailable Unavailable Kunnumpurath, F Brittni MD Unavailable Unavailable Kunnumpurath, F Brittni MD Unavailable Unavailable Kunnumpurath, F Brittni MD Unavailable Unavailable Kunnumpurath, F Brittni MD Unavailable Unavailable Kunnumpurath, F Brittni MD Unavailable Unavailable Kunnumpurath, F Brittni MD Unavailable Unavailable Kunnumpurath, F Brittni MD Unavailable Unavailable Kunnumpurath, F Brittni MD Unavailable Unavailable Kunnumpurath, F Brittni MD Unavailable Unavailable DiVencenzo, Rolando DO Unavailable Unavailable DiVencenzo, Rolando DO Unavailable Unavailable DiVencenzo, Rolando DO Unavailable Unavailable DiVencenzo, Rolando DO Unavailable Unavailable DiVencenzo, Rolando DO Unavailable Unavailable PHYSICIAN, OTHER Unavailable Unavailable Kunnumpurath, F Brittni MD Unavailable Unavailable Kunnumpurath, F Brittni MD Unavailable Unavailable Kunnumpurath, F Brittni MD Unavailable Unavailable Kunnumpurath, F Brittni MD Unavailable Unavailable Kunnumpurath, F Brittni MD Unavailable Unavailable Kunnumpurath, F Brittni MD Unavailable Unavailable Kunnumpurath, F Brittni MD Unavailable Unavailable Kunnumpurath, F Brittni MD Unavailable Unavailable Kunnumpurath, F Brittni MD Unavailable Unavailable Kunnumpurath, F Brittni MD Unavailable Unavailable Kunnumpurath, F Brittni MD Unavailable Unavailable Kunnumpurath, F Brittni MD Unavailable Unavailable Kunnumpurath, F Brittni MD Unavailable Unavailable Kunnumpurath, F Brittni MD Unavailable Unavailable Kunnumpurath, F Brittni MD Unavailable Unavailable Kunnumpurath, F Brittni MD Unavailable Unavailable Kunnumpurath, F Brittni MD Unavailable Unavailable Kunnumpurath, F Brittni MD Unavailable Unavailable Kunnumpurath, F Brittni MD Unavailable Unavailable Kunnumpurath, F Brittni MD Unavailable Unavailable Kunnumpurath, F Brittni MD Unavailable Unavailable Kunnumpurath, F Brittni MD Unavailable Unavailable Kunnumpurath, F Brittni MD Unavailable Unavailable Kunnumpurath, F Brittni MD Unavailable Unavailable Kunnumpurath, F Brittni MD Unavailable Unavailable Kunnumpurath, F Brittni MD Unavailable Unavailable Kunnumpurath, F Brittni MD Unavailable Unavailable Kunnumpurath, F Brittni MD Unavailable Unavailable Kunnumpurath, F Brittni MD Unavailable Unavailable Kunnumpurath, F Brittni MD Unavailable Unavailable Kunnumpurath, F Brittni MD Unavailable Unavailable Kunnumpurath, F Brittni MD Unavailable Unavailable Kunnumpurath, F Brittni MD Unavailable Unavailable Kunnumpurath, F Brittni MD Unavailable Unavailable Kunnumpurath, F Brittni MD Unavailable Unavailable Kunnumpurath, F Brittni MD Unavailable Unavailable Kunnumpurath, F Brittni MD Unavailable Unavailable Kunnumpurath, F Brittni MD Unavailable Unavailable Jennifer Thomas MD Unavailable Unavailable Jennifer Thomas MD Unavailable Unavailable Jennifer Thomas MD Unavailable Unavailable Jennifer Thomas MD Unavailable Unavailable Jennifer Thomas MD Unavailable Unavailable Jennifer Thomas MD Unavailable Unavailable Jenniefr Thomas MD Unavailable Unavailable Jennifer Thomas MD Unavailable Unavailable Jennifer Thomas MD Unavailable Unavailable Jennifer Thomas MD Unavailable Unavailable Jennifer Thomas MD Unavailable Unavailable Jennifer Thomas MD Unavailable Unavailable Jennifer Thomas MD Unavailable Unavailable Jennifer Thomas MD Unavailable Unavailable Jennifer Thomas MD Unavailable Unavailable Jennifer Thomas MD Unavailable Unavailable Jennifer Thomas MD Unavailable Unavailable Jennifer Thomas MD Unavailable Unavailable Jennifer Thomas MD Unavailable Unavailable Jennifer Thomas MD Unavailable Unavailable Jennifer Thomas MD Unavailable Unavailable Jennifer Thomas MD Unavailable Unavailable Jennifer Thomas MD Unavailable Unavailable Jennifer Thomas MD Unavailable Unavailable Jennifer Thomas MD Unavailable Unavailable Jennifer Thoams MD Unavailable Unavailable Jennifer Thomas MD Unavailable Unavailable Jennifer Thomas MD Unavailable Unavailable Jennifer Thomas MD Unavailable Unavailable Jennifer Thomas MD Unavailable Unavailable Jennifer Thomas MD Unavailable Unavailable Jennifer Thomas MD Unavailable Unavailable Jennifer Thomas MD Unavailable Unavailable Jennifer Thomas MD Unavailable Unavailable Jennifer Thomas MD Unavailable Unavailable Jennifer Thomas MD Unavailable Unavailable Jennifer Thomas MD Unavailable Unavailable Jennifer Thomas MD Unavailable Unavailable Jennifer Thomas MD Unavailable Unavailable Jennifer Thomas MD Unavailable Unavailable Jennifer Thomas MD Unavailable Unavailable Jennifer Thomas MD Unavailable Unavailable Jennifer Thomas MD Unavailable Unavailable Jennifer Thomas MD Unavailable Unavailable Jennifer Thomas MD Unavailable Unavailable Jennifer Thomas MD Unavailable Unavailable Jennifer Thomas MD Unavailable Unavailable Jennifer Thomas MD Unavailable Unavailable Jennifer Thomas MD Unavailable Unavailable Jennifer Thomas MD Unavailable Unavailable Jennifer Thomas MD Unavailable Unavailable Jennifer Thomas MD Unavailable Unavailable WilliamJennifer gresham MD Unavailable Unavailable Re-disclosure Warning The records that you are about to access may contain information from federally-assisted alcohol or drug abuse programs. If such information is present, then the following federally mandated warning applies: This information has been disclosed to you from records protected by federal confidentiality rules (42 CFR part 2). The federal rules prohibit you from making any further disclosure of this information unless further disclosure is expressly permitted by the written consent of the person to whom it pertains or as otherwise permitted by 42 CFR part 2. A general authorization for the release of medical or other information is NOT sufficient for this purpose. The Federal rules restrict any use of the information to criminally investigate or prosecute any alcohol or drug abuse patient.The records that you are about to access may contain highly sensitive health information, the redisclosure of which is protected by Article 27-F of the [facility] Public Health law. If you continue you may have access to information: Regarding HIV / AIDS; Provided by facilities licensed or operated by the [facility] Office of Mental Health; or Provided by the [facility] Office for People With Developmental Disabilities. If such information is present, then the following [facility] mandated warning applies: This information has been disclosed to you from confidential records which are protected by state law. State law prohibits you from making any further disclosure of this information without the specific written consent of the person to whom it pertains, or as otherwise permitted by law. Any unauthorized further disclosure in violation of state law may result in a fine or mcc sentence or both. A general authorization for the release of medical or other information is NOT sufficient authorization for further disc losure. Allergies and Adverse Reactions Type Description Substance Reaction Status Data Source(s ) No Known Environmental Allergies No [facility] No Known Food Allergies No Known Food Allergies [facility] BRANDNAME SUDAFED SUDAFED [facility] Drug allergy cefazolin c[facility] Drug allergy fluoxetine fluox[facility] Drug allergy trazodone [facility] Drug allergy pseudoephedrine pseudoephedrine [facility] Drug allergy Cefprozil cefprozil Hives Active eCW1 ([facility]) Drug allergy Sudafed Drug allergy Hives Active eCW1 ([facility]) Cefprozil Cefprozil cefprozil 500 MG Oral Tablet Hives Active eCW1 ([facility]) Family History Family Member Name Family Member Gender Family Member Status Date o f Status Description Data Source(s) Unknown Male Problem [facility] ([facility]) Unknown Female Problem MEDENT ([facility]) Unknown Female Problem MEDENT ([facility]) Encounters Encounter Providers Location Date Indications Data Source(s ) ([id number]) For [facility] [address] [place] [address] 06/27/2020 12:00:00 AM EST eCW1 ([facility]) Unknown [address] [facility] [id number] 06/27/2020 12:00:00 AM EST eCW1 ([facility]) Unknown [address] [facility] [id number] 06/26/2020 12:00:00 AM EST eCW1 ([facility]) Unknown [address] [facility] [address] 06/12/2020 12:00:00 AM EST eCW1 ([facility]) ([id number]) For [facility] [address] [place] [address] 06/05/2020 12:00:00 AM EST eCW1 ([facility]) ([id number]) [facility] [address] [place] [address] 05/29/2020 12:00:00 AM EST eCW1 ([facility]) Unknown [address] [facility] [id number] 05/09/2020 12:00:00 AM EST eCW1 ([facility]) Unknown [address] [facility] [id number] 05/07/2020 12:00:00 AM EST eCW1 ([facility]) Unknown [address] [facility] [id number] 05/03/2020 12:00:00 AM EST eCW1 ([facility]) Unknown [address] [facility] [place] [address] 04/30/2020 12:00:00 AM EST eCW1 ([facility]) Outpatient [address] [facility] [id number] 04/25/2020 12:00:00 AM EDT eCW1 ([facility]) Outpatient Attender: Brittni Serrano MD Family Practice 1 02:00:00 PM EDT [facility] Outpatient Attender: Brtitni Serrano MD 1 01:22:00 PM EDT - 04/18/2020 01:22:00 PM EDT [facility] Outpatient [address] [facility] [id number] 04/11/2020 12:00:00 AM EDT eCW1 ([facility]) ([id number]) [facility] [address] [place] [address] 04/04/2020 12:00:00 AM EDT eCW1 ([facility]) Outpatient [address] [facility] [id number] 04/03/2020 12:00:00 AM EDT eCW1 ([facility]) Outpatient [address] [facility] [id number] 04/03/2020 12:00:00 AM EDT eCW1 ([facility]) Unknown [address] [facility] [place] [address] 03/28/2020 12:00:00 AM EDT eCW1 ([facility]) Outpatient Attender: OTHER PHYSICIANRef errer: EM PRINCE PAConsultant: [facility]: [facility]CE [id number] 02/08/2020 09:30:00 PM EDT [facility] Inpatient Attender: [id number] MEDENT_ 23Attender: Rolando Pepe DOAdmitter: Rolando Pepe DO EMERGENCY ROOM-2N 02/08/2020 11:07:00 AM EDT - 03/10/2020 09:00:00 AM EDT [facility] Patient discharged. ([id number]) For [facility] [address] [place] [address] 01/18/2020 12:00:00 AM EDT eCW1 ([facility]) Unknown [address] [facility] [id number] 01/17/2020 12:00:00 AM EDT [facility]CW1 [facility] Unknown [address] [facility] [id number] 01/13/2020 12:00:00 AM EDT eCW1 ([facility]) ([id number]) [facility] [address] [place] [address] 01/11/2020 12:00:00 AM EDT eCW1 ([facility]) Unknown [address] [facility] [id number] 01/09/2020 12:00:00 AM EDT eCW1 ([facility] Unknown [address] [facility] [address] 12/14/2019 12:00:00 AM EDT eCW1 ([facility]) Outpatient Attender: Brittni Serrano MD 0 12/13/2019 02:51:00 PM EDT - 12/13/2019 02:51:00 PM EDT [facility] Outpatient [address] [facility] [id number] 12/12/2019 12:00:00 AM EDT eCW1 ([facility]) Outpatient Referrer: Heaven Thomas MD 12/06/2019 05:04:00 AM EDT [facility] [address] [facility] [address] 12/05/2019 12:00:00 AM EDT [facility]CW1 [facility] Outpatient Referrer: Heaven Thomas MD 12/02/2019 05:02:00 AM EDT [facility] [place] [address] [facility] [address] 11/29/2019 12:00:00 AM EDT eCW1 ([facility]) [facility] [address] [facility] [address] 11/29/2019 12:00:00 AM EDT eCW1 ([facility]) [facility] [address] [facility] [place] [address] 11/29/2019 12:00:00 AM EDT eCW1 ([facility]) [place] [address] [facility] [place] [address] 11/25/2019 12:00:00 AM EDT eCW1 ([facility]) [place] [address] [facility] [place] [address] 11/25/2019 12:00:00 AM EDT eCW1 ([facility]) [place] [address] [facility] [place] [address] 11/23/2019 12:00:00 AM EDT eCW1 ([facility] [facility] [address] [facility] [address] 11/22/2019 12:00:00 AM EDT [facility] [address] [facility] [address] 11/22/2019 12:00:00 AM EDT eCW1 ([facility]) [facility] [address] [facility] [address] 11/18/2019 12:00:00 AM EDT eCW1 ([facility] [address] [facility] [address] 11/15/2019 12:00:00 AM EDT eCW1 ([facility]) Outpatient Referrer: Heaven Thomas MD 11/09/2019 05:18:00 AM EDT [facility] Outpatient Attender: Brittni Serrano MD Family Practice 0 11/08/2019 02:00:00 PM EDT MEDENT ([facility]) Outpatient Attender: Brittni Serrano MD 0 11/08/2019 01:09:00 PM EDT - 11/08/2019 01:09:00 PM EDT [facility] [address] [facility] [address] 11/07/2019 12:00:00 AM EDT eCW1 ([facility]) [facility] [address] [facility] [address] 11/07/2019 12:00:00 AM EDT eCW1 ([facility] [address] [facility] [address] 10/31/2019 12:00:00 AM EDT eCW1 ([facility]) [facility] [address] [facility] [address] 10/28/2019 12:00:00 AM EDT eCW1 ([facility]) [facility] [address] [facility] [address] 10/25/2019 12:00:00 AM EDT eCW1 ([facility]) [facility] [address] [facility] [address] 10/25/2019 12:00:00 AM EDT eCW1 ([facility]) [facility] [address] [facility] [address] 10/17/2019 12:00:00 AM EDT eCW1 ([facility]) [facility] [address] [facility] [address] 10/10/2019 12:00:00 AM EDT eCW1 ([facility]) [facility] [address] [facility] [address] 10/10/2019 12:00:00 AM EDT eCW1 ([facility]) Outpatient Attender: Brittni Serrano MD 0 10/05/2019 02:33:00 PM EDT - 10/05/2019 02:33:00 PM EDT [facility] [address] [facility] [address] 09/26/2019 12:00:00 AM EDT [facility]CW[facility] [address] [place] [address] 09/19/2019 12:00:00 AM EDT eCW1 ([facility] [address] [facility] [address] 09/12/2019 12:00:00 AM EDT eCW1 [facility] [address] [facility] [address] 09/05/2019 12:00:00 AM EDT eCW1 [facility] Outpatient Attender: MARTHA MORROW NP Physical Therapy 08/30/2019 1 2:45:00 PM EST MEDENT ([facility]) [facility] [address] [facility] [address] 08/29/2019 12:00:00 AM EST eCW1 [facility] Outpatient Attender: Brittni Serrano MD 0 08/03/2019 01:09:00 PM EST - 08/03/2019 01:09:00 PM EST [facility] [address] [place] [address] 07/26/2019 12:00:00 AM EST eCW1 [facility] Outpatient Referrer: Heaven Thomas MD 07/20/2019 01:10:00 PM EST [facility] [address] [place] [address] 07/19/2019 12:00:00 AM EST [facility]CW1 [facility] [address] [facility] [address] 07/12/2019 12:00:00 AM EST eCW1 ([facility]) [facility] [address] [facility] [address] 07/05/2019 12:00:00 AM EST eCW1 ([facility]) [facility] [address] [address] 06/28/2019 12:00:00 AM EST eCW1 ([facility]) Outpatient Attender: Brittni Serrano MD 06/23/2019 02:23:00 PM EST E11.65,E78.5,I10 [facility] E11.65,E78.5,I10 Outpatient Attender: Brittni Serrano MD 1 08/24/2018 01:28:00 PM EST - 06/23/2019 01:28:00 PM EST [facility] Outpatient Attender: Brittni Serrano MD Family Practice 1 08/24/2018 12:20:00 PM EST [facility] [address] [facility] [address] 06/21/2019 12:00:00 AM EST eCW1 ([facility]) Immunizations Vaccine Date Status Description Data Source(s) IIV3. This is one of two codes replacing CVX 15, which is being retired. 04/11/2020 07:52:00 AM EDT completed eCW1 ([facility]) IIV3. This is one of two codes replacing CVX 15, which is being retired. 04/11/2020 07:52:00 AM EDT completed eCW1 ([facility]) IIV3. This is one of two codes replacing CVX 15, which is being retired. 04/11/2020 07:52:00 AM EDT completed eCW1 ([facility]) IIV3. This is one of two codes replacing CVX 15, which is being retired. 04/11/2020 07:52:00 AM EDT completed eCW1 ([facility]) IIV3. This is one of two codes replacing CVX 15, which is being retired. 04/11/2020 07:52:00 AM EDT completed eCW1 ([facility]) IIV3. This is one of two codes replacing CVX 15, which is being retired. 04/11/2020 07:52:00 AM EDT completed eCW1 ([facility]) IIV3. This is one of two codes replacing CVX 15, which is being retired. 04/11/2020 07:52:00 AM EDT completed eCW1 ([facility]) IIV3. This is one of two codes replacing CVX 15, which is being retired. 04/11/2020 07:52:00 AM EDT completed eCW1 ([facility]) IIV3. This is one of two codes replacing CVX 15, which is being retired. 04/11/2020 07:52:00 AM EDT completed eCW1 ([facility]) IIV3. This is one of two codes replacing CVX 15, which is being retired. 04/11/2020 07:52:00 AM EDT completed eCW1 ([facility]) IIV3. This is one of two codes replacing CVX 15, which is being retired. 04/11/2020 07:52:00 AM EDT completed eCW1 ([facility]) IIV3. This is one of two codes replacing CVX 15, which is being retired. 04/11/2020 07:52:00 AM EDT completed eCW1 ([facility]) IIV3. This is one of two codes replacing CVX 15, which is being retired. 04/11/2020 07:52:00 AM EDT completed eCW1 ([facility]) IIV3. This is one of two codes replacing CVX 15, which is being retired. 04/11/2020 07:52:00 AM EDT completed eCW1 ([facility]) IIV3. This is one of two codes replacing CVX 15, which is being retired. 04/11/2020 07:52:00 AM EDT completed eCW1 ([facility]) Medications Medication Brand Name Start Date Product Form Dose Route Admi nistrative Instructions Pharmacy Instructions Status Indications Reaction Description Data Source(s) 500 mg 06/28/2020 12:00:00 AM EST capsule 40 DI RECTED DIRECTED SOLD: 07/02/2020 [facility] Dicloxacillin 500 MG Oral Capsule Dicloxacillin Sodium 500 MG Dicloxacillin Sodium 500 MG 04/03/2020 12:00:00 AM EDT acti ve Dicloxacillin Sodium 500 MG eCW1 ([facility]) Dicloxacillin 500 MG Oral Capsule Dicloxacillin Sodium 500 MG Dicloxacillin Sodium 500 MG 04/03/2020 12:00:00 AM EDT acti ve Dicloxacillin Sodium 500 MG eCW1 ([facility]) Fluconazole 100 MG Oral Tablet Fluconazole 100 MG 04/03/2020 12:00: 00 AM EDT 1.0 {tablet} active Fluconazole 100 MG eCW1 ([facility]) Fluconazole 100 MG Oral Tablet Fluconazole 100 MG 04/03/2020 12:00: 00 AM EDT 1.0 {tablet} active Fluconazole 100 MG eCW1 ([facility]) Fluconazole 100 MG Oral Tablet Fluconazole 100 MG 04/03/2020 12:00: 00 AM EDT 1.0 {tablet} active Fluconazole 100 MG eCW1 ([facility]) Fluconazole 100 MG Oral Tablet Fluconazole 100 MG 04/03/2020 12:00: 00 AM EDT 1.0 {tablet} active Fluconazole 100 MG eCW1 ([facility]) Dicloxacillin 500 MG Oral Capsule Dicloxacillin Sodium 500 MG Dicloxacillin Sodium 500 MG 04/03/2020 12:00:00 AM EDT acti ve Dicloxacillin Sodium 500 MG eCW1 ([facility]) Dicloxacillin 500 MG Oral Capsule Dicloxacillin Sodium 500 MG Dicloxacillin Sodium 500 MG 04/03/2020 12:00:00 AM EDT acti ve Dicloxacillin Sodium 500 MG eCW1 ([facility]) Dicloxacillin 500 MG Oral Capsule Dicloxacillin Sodium 500 MG Dicloxacillin Sodium 500 MG 04/03/2020 12:00:00 AM EDT acti ve Dicloxacillin Sodium 500 MG eCW1 ([facility]) Dicloxacillin 500 MG Oral Capsule Dicloxacillin Sodium 500 MG Dicloxacillin Sodium 500 MG 04/03/2020 12:00:00 AM EDT acti ve Dicloxacillin Sodium 500 MG eCW1 ([facility]) Fluconazole 100 MG Oral Tablet Fluconazole 100 MG 04/03/2020 12:00: 00 AM EDT 1.0 {tablet} active Fluconazole 100 MG eCW1 ([facility]) Dicloxacillin 500 MG Oral Capsule Dicloxacillin Sodium 500 MG Dicloxacillin Sodium 500 MG 04/03/2020 12:00:00 AM EDT acti ve Dicloxacillin Sodium 500 MG eCW1 ([facility]) Fluconazole 100 MG Oral Tablet Fluconazole 100 MG 04/03/2020 12:00: 00 AM EDT 1.0 {tablet} active Fluconazole 100 MG eCW1 ([facility]) Fluconazole 100 MG Oral Tablet Fluconazole 100 MG 04/03/2020 12:00: 00 AM EDT 1.0 {tablet} active Fluconazole 100 MG eCW1 ([facility]) Dicloxacillin 500 MG Oral Capsule Dicloxacillin Sodium 500 MG Dicloxacillin Sodium 500 MG 04/03/2020 12:00:00 AM EDT acti ve Dicloxacillin Sodium 500 MG eCW1 ([facility]) Fluconazole 100 MG Oral Tablet Fluconazole 100 MG 04/03/2020 12:00: 00 AM EDT 1.0 {tablet} active Fluconazole 100 MG eCW1 ([facility]) Fluconazole 100 MG Oral Tablet Fluconazole 100 MG 04/03/2020 12:00: 00 AM EDT 1.0 {tablet} active Fluconazole 100 MG eCW1 ([facility]) Dicloxacillin 500 MG Oral Capsule Dicloxacillin Sodium 500 MG Dicloxacillin Sodium 500 MG 04/03/2020 12:00:00 AM EDT acti ve Dicloxacillin Sodium 500 MG eCW1 ([facility]) Dicloxacillin 500 MG Oral Capsule Dicloxacillin Sodium 500 MG Dicloxacillin Sodium 500 MG 04/03/2020 12:00:00 AM EDT acti ve Dicloxacillin Sodium 500 MG eCW1 ([facility]) Dicloxacillin 500 MG Oral Capsule Dicloxacillin Sodium 500 MG Dicloxacillin Sodium 500 MG 04/03/2020 12:00:00 AM EDT acti ve Dicloxacillin Sodium 500 MG eCW1 ([facility]) Fluconazole 100 MG Oral Tablet Fluconazole 100 MG 04/03/2020 12:00: 00 AM EDT 1.0 {tablet} active Fluconazole 100 MG eCW1 ([facility]) Fluconazole 100 MG Oral Tablet Fluconazole 100 MG 04/03/2020 12:00: 00 AM EDT 1.0 {tablet} active Fluconazole 100 MG eCW1 ([facility]) Fluconazole 100 MG Oral Tablet Fluconazole 100 MG 04/03/2020 12:00: 00 AM EDT 1.0 {tablet} active Fluconazole 100 MG eCW1 ([facility]) Fluconazole 100 MG Oral Tablet Fluconazole 100 MG 04/03/2020 12:00: 00 AM EDT 1.0 {tablet} active Fluconazole 100 MG eCW1 ([facility]) Dicloxacillin 500 MG Oral Capsule Dicloxacillin Sodium 500 MG Dicloxacillin Sodium 500 MG 04/03/2020 12:00:00 AM EDT acti ve Dicloxacillin Sodium 500 MG eCW1 ([facility]) Spironolactone 25 MG Oral Tablet Spironolactone 04/03/2020 12:00:00 A M EDT ORAL active MEDENT ([facility]) Dicloxacillin 500 MG Oral Capsule Dicloxacillin Sodium 500 MG Dicloxacillin Sodium 500 MG 04/03/2020 12:00:00 AM EDT acti ve Dicloxacillin Sodium 500 MG eCW1 ([facility]) Fluconazole 100 MG Oral Tablet Fluconazole 100 MG 04/03/2020 12:00: 00 AM EDT 1.0 {tablet} active Fluconazole 100 MG eCW1 ([facility]) Dicloxacillin 500 MG Oral Capsule Dicloxacillin Sodium 500 MG Dicloxacillin Sodium 500 MG 04/03/2020 12:00:00 AM EDT acti ve Dicloxacillin Sodium 500 MG eCW1 ([facility]) Fluconazole 100 MG Oral Tablet Fluconazole 100 MG 04/03/2020 12:00: 00 AM EDT 1.0 {tablet} active Fluconazole 100 MG eCW1 ([facility]) Dicloxacillin 500 MG Oral Capsule Dicloxacillin Sodium 500 MG Dicloxacillin Sodium 500 MG 04/03/2020 12:00:00 AM EDT acti ve Dicloxacillin Sodium 500 MG eCW1 ([facility]) 100 unit/mL (3 mL) 03/15/2020 12:00:00 AM EDT insulin pen 30 INJECT 50 UNITS DAILY BEFORE BREAKFAST AND DINNER INJECT 50 UNITS DAILY BEFORE BREAKFAST A ND DINNER SOLD: 03/18/2020 [facility] Seat Rails For Toilet 12/20/2019 12:00:00 AM EDT active MEDENT ([facility]) 0.8 % 12/16/2019 12:00:00 AM EDT cream 20 INSERT ONE APPLICATORFUL VAGINALLY EVERY DAY AT BEDTIME FOR 3 DAYS INSERT ONE APPLICATORFUL VAGINALLY EVERY DAY AT BEDTIME FOR 3 DAYS SOLD: 12/18/2019 [facility] 100 mg 12/15/2019 12:00:00 AM EDT tablet 7 TAKE ONE TABLET BY MOUTH EVERY DAY FOR 7 DAYS TAKE ONE TABLET BY MOUTH EVERY DAY FOR 7 DAYS SOLD: 12/15/2019 [facility] Fluconazole 100 MG Oral Tablet Fluconazole 100 MG 12/15/2019 12:00: 00 AM EDT 1.0 {tablet} active Fluconazole 100 MG eCW1 ([facility]) Amoxicillin 875 MG / Clavulanate 125 MG Oral Tablet Amoxicillin-Pot Clavulanate 875-125 MG Amoxicillin-Pot Clavulanate 875-125 MG 12/15/2019 12:00:00 AM ED T 1.0 {tablet} active Amoxicillin-Pot Cla vulanate 875-125 MG eCW1 ([facility]) terconazole 8 MG/ML Vaginal Cream Terconazole 0.8 % Terconaz ole 0.8 % 12/15/2019 12:00:00 AM EDT active Terconaz ole 0.8 % eCW1 ([facility]) 875-125 mg 12/15/2019 12:00:00 AM EDT tablet 28 TAKE ONE TABLET BY MOUTH EVERY 12 HOURS FOR 14 DAYS TAKE ONE TABLET BY MOUTH EVERY 12 HOURS FOR 14 DAYS SOLD: 12/15/2019 [facility] 300 mg 12/13/2019 12:00:00 AM EDT capsule 90 TAKE ONE CAPSULE BY MOUTH THREE TIMES A DAY TAKE ONE CAPSULE BY MOUTH THREE TIMES A DAY SOLD: 12/13/2019 [facility] 40 mg 12/13/2019 12:00:00 AM EDT tablet 30 TAKE ONE TABLET BY MOUTH AT BEDTIME TAKE ONE TABLET BY MOUTH AT BEDTIME SOLD: 01/04/2020 [facility] 100 mg 12/13/2019 12:00:00 AM EDT tablet 30 TAKE ONE TABLET BY MOUTH EVERY DAY TAKE ONE TABLET BY MOUTH EVERY DAY SOLD: 01/04/2020 [facility] atorvastatin 40 MG Oral Tablet ATORVASTATIN CALCIUM 12/13/2019 1 2:00:00 AM EDT tablet 30 TAKE ONE TABLET BY MOUTH AT BEDT FARIDA TAKE ONE TABLET BY MOUTH AT BEDTIME SOLD: 12/13/2019 [facility] 100 mg 12/13/2019 12:00:00 AM EDT tablet 30 TAKE ONE TABLET BY MOUTH EVERY DAY TAKE ONE TABLET BY MOUTH EVERY DAY SOLD: 03/10/2020 [facility] 300 mg 12/13/2019 12:00:00 AM EDT capsule 90 TAKE ONE CAPSULE BY MOUTH THREE TIMES A DAY TAKE ONE CAPSULE BY MOUTH THREE TIMES A DAY SOLD: 01/04/2020 [facility] atorvastatin 40 MG Oral Tablet ATORVASTATIN CALCIUM 12/13/2019 1 2:00:00 AM EDT tablet 30 TAKE ONE TABLET BY MOUTH AT BEDT FARIDA TAKE ONE TABLET BY MOUTH AT BEDTIME SOLD: 03/10/2020 [facility] 81 mg 12/13/2019 12:00:00 AM EDT tablet,delayed release (DR/EC) 30 TAKE ONE TABLET BY MOUTH EVERY DAY TAKE ONE TABLET BY MOUTH EVERY DAY SOLD: 12/13/2019 [facility] 81 mg 12/13/2019 12:00:00 AM EDT tablet,delayed release (DR/EC) 30 TAKE ONE TABLET BY MOUTH EVERY DAY TAKE ONE TABLET BY MOUTH EVERY DAY SOLD: 01/04/2020 [facility] 300 mg 12/13/2019 12:00:00 AM EDT capsule 90 TAKE ONE CAPSULE BY MOUTH THREE TIMES A DAY TAKE ONE CAPSULE BY MOUTH THREE TIMES A DAY SOLD: 03/10/2020 [facility] 10 mg 12/13/2019 12:00:00 AM EDT tablet 30 TAKE ONE TABLET BY MOUTH EVERY DAY TAKE ONE TABLET BY MOUTH EVERY DAY SOLD: 03/10/2020 [facility] gabapentin 300 MG Oral Capsule Gabapentin 12/13/2019 12:00:00 AM EDT ORAL active MEDENT ([facility]) Losartan Potassium 100 MG Oral Tablet Losartan Potassium 12:00:00 AM EDT ORAL completed MEDENT ([facility]) 10 mg 12/13/2019 12:00:00 AM EDT tablet 30 TAKE ONE TABLET BY MOUTH EVERY DAY TAKE ONE TABLET BY MOUTH EVERY DAY SOLD: 01/04/2020 [facility] Aspirin 81 MG Delayed Release Oral Tablet Aspirin Adult Low Dose 12/13/2019 12:00:00 AM EDT ORAL active M EDENT ([facility]) 100 mg 12/13/2019 12:00:00 AM EDT tablet 30 TAKE ONE TABLET BY MOUTH EVERY DAY TAKE ONE TABLET BY MOUTH EVERY DAY SOLD: 12/13/2019 [facility] 10 mg 12/13/2019 12:00:00 AM EDT tablet 30 TAKE ONE TABLET BY MOUTH EVERY DAY TAKE ONE TABLET BY MOUTH EVERY DAY SOLD: 12/13/2019 [facility] Amlodipine 10 MG Oral Tablet Amlodipine Besylate 12/13/2019 12:00:00 AM EDT ORAL active MEDENT ([facility]) 1.5 mg/0.5 mL 12/06/2019 12:00:00 AM EDT pen injector 2 INJECT 0.5ML SUBCUTANEOUSLY ONCE WEEKLY INJECT 0.5ML SUBCUTANEOUSLY ONCE WEEKLY SOLD: 12/13/2019 [facility] 1.5 mg/0.5 mL 12/06/2019 12:00:00 AM EDT pen injector 2 INJECT 0.5ML SUBCUTANEOUSLY ONCE WEEKLY INJECT 0.5ML SUBCUTANEOUSLY ONCE WEEKLY SOLD: 01/04/2020 [facility] 1.5 mg/0.5 mL 12/06/2019 12:00:00 AM EDT pen injector 2 INJECT 0.5ML SUBCUTANEOUSLY ONCE WEEKLY INJECT 0.5ML SUBCUTANEOUSLY ONCE WEEKLY SOLD: 03/10/2020 [facility] 875-125 mg 11/29/2019 12:00:00 AM EDT tablet 30 TAKE ONE TABLET BY MOUTH TWICE A DAY TAKE ONE TABLET BY MOUTH TWICE A DAY SOLD: 12/02/2019 [facility] Bactrim DS 800-160 UNK 11/22/2019 12:00:00 AM EDT 1.0 {table t} suspended Bactrim DS 800-160 eCW1 ([facility]) Bactrim DS 800-160 UNK 11/22/2019 12:00:00 AM EDT 1.0 {table t} suspended Bactrim DS 800-160 eCW1 ([facility]) Bactrim DS 800-160 UNK 11/22/2019 12:00:00 AM EDT 1.0 {table t} suspended Bactrim DS 800-160 eCW1 ([facility]) Bactrim DS 800-160 UNK 11/22/2019 12:00:00 AM EDT 1.0 {table t} suspended Bactrim DS 800-160 eCW1 ([facility]) Bactrim DS 800-160 UNK 11/22/2019 12:00:00 AM EDT 1.0 {table t} suspended Bactrim DS 800-160 eCW1 ([facility]) Bactrim DS 800-160 UNK 11/22/2019 12:00:00 AM EDT 1.0 {table t} suspended Bactrim DS 800-160 eCW1 ([facility]) Bactrim DS 800-160 UNK 11/22/2019 12:00:00 AM EDT 1.0 {table t} suspended Bactrim DS 800-160 eCW1 ([facility]) Bactrim DS 800-160 UNK 11/22/2019 12:00:00 AM EDT 1.0 {table t} suspended Bactrim DS 800-160 eCW1 ([facility]) 800-160 mg 11/22/2019 12:00:00 AM EDT tablet 20 TAKE ONE TABLET BY MOUTH TWICE A DAY FOR 10 DAYS TAKE ONE TABLET BY MOUTH TWICE A DAY FOR 10 DAYS SOLD: 11/22/2019 [facility] Bactrim DS 800-160 UNK 11/22/2019 12:00:00 AM EDT 1.0 {table t} suspended Bactrim DS 800-160 eCW1 ([facility]) Bactrim DS 800-160 UNK 11/22/2019 12:00:00 AM EDT 1.0 {table t} suspended Bactrim DS 800-160 eCW1 ([facility]) Bactrim DS 800-160 UNK 11/22/2019 12:00:00 AM EDT 1.0 {table t} suspended Bactrim DS 800-160 eCW1 ([facility]) Bactrim DS 800-160 UNK 11/22/2019 12:00:00 AM EDT 1.0 {table t} suspended Bactrim DS 800-160 eCW1 ([facility]) Bactrim DS 800-160 UNK 11/22/2019 12:00:00 AM EDT 1.0 {table t} suspended Bactrim DS 800-160 eCW1 ([facility]) Bactrim DS 800-160 UNK 11/22/2019 12:00:00 AM EDT 1.0 {table t} suspended Bactrim DS 800-160 eCW1 ([facility]) Bactrim DS 800-160 UNK 11/22/2019 12:00:00 AM EDT 1.0 {table t} suspended Bactrim DS 800-160 eCW1 ([facility]) Bactrim DS 800-160 UNK 11/22/2019 12:00:00 AM EDT 1.0 {table t} suspended Bactrim DS 800-160 eCW1 ([facility]) Bactrim DS 800-160 UNK 11/22/2019 12:00:00 AM EDT 1.0 {table t} suspended Bactrim DS 800-160 eCW1 ([facility]) Bactrim DS 800-160 UNK 11/22/2019 12:00:00 AM EDT 1.0 {table t} suspended Bactrim DS 800-160 eCW1 ([facility]) Bactrim DS 800-160 UNK 11/22/2019 12:00:00 AM EDT 1.0 {table t} suspended Bactrim DS 800-160 eCW1 ([facility]) Bactrim DS 800-160 UNK 11/22/2019 12:00:00 AM EDT 1.0 {table t} suspended Bactrim DS 800-160 eCW1 ([facility]) Bactrim DS 800-160 UNK 11/22/2019 12:00:00 AM EDT 1.0 {tablet} active Bactrim DS 800-160 eCW1 ([facility]) Bactrim DS 800-160 UNK 11/22/2019 12:00:00 AM EDT 1.0 {table t} suspended Bactrim DS 800-160 eCW1 ([facility]) Bactrim DS 800-160 UNK 11/22/2019 12:00:00 AM EDT 1.0 {table t} suspended Bactrim DS 800-160 eCW1 ([facility]) Bactrim DS 800-160 UNK 11/22/2019 12:00:00 AM EDT 1.0 {table t} suspended Bactrim DS 800-160 eCW1 ([facility]) Bactrim DS 800-160 UNK 11/22/2019 12:00:00 AM EDT 1.0 {table t} suspended Bactrim DS 800-160 eCW1 ([facility]) Bactrim DS 800-160 UNK 11/22/2019 12:00:00 AM EDT 1.0 {table t} suspended Bactrim DS 800-160 eCW1 ([facility]) Bactrim DS 800-160 UNK 11/22/2019 12:00:00 AM EDT 1.0 {table t} suspended Bactrim DS 800-160 eCW1 ([facility]) doxycycline hyclate 100 MG Oral Tablet Doxycycline Hyc late 100 MG Doxycycline Hyclate 100 MG 11/15/2019 12:00:00 AM EDT 1.0 {tablet} suspended Doxycycline Hyclate 100 MG eCW1 ([facility]) doxycycline hyclate 100 MG Oral Tablet Doxycycline Hyc late 100 MG Doxycycline Hyclate 100 MG 11/15/2019 12:00:00 AM EDT 1.0 {tablet} suspended Doxycycline Hyclate 100 MG eCW1 ([facility]) doxycycline hyclate 100 MG Oral Tablet Doxycycline Hyc late 100 MG Doxycycline Hyclate 100 MG 11/15/2019 12:00:00 AM EDT 1.0 {tablet} suspended Doxycycline Hyclate 100 MG eCW1 ([facility]) doxycycline hyclate 100 MG Oral Tablet Doxycycline Hyc late 100 MG Doxycycline Hyclate 100 MG 11/15/2019 12:00:00 AM EDT 1.0 {tablet} suspended Doxycycline Hyclate 100 MG eCW1 ([facility]) doxycycline hyclate 100 MG Oral Tablet Doxycycline Hyc late 100 MG Doxycycline Hyclate 100 MG 11/15/2019 12:00:00 AM EDT 1.0 {tablet} suspended Doxycycline Hyclate 100 MG eCW1 ([facility]) doxycycline hyclate 100 MG Oral Tablet Doxycycline Hyc late 100 MG Doxycycline Hyclate 100 MG 11/15/2019 12:00:00 AM EDT 1.0 {tablet} suspended Doxycycline Hyclate 100 MG eCW1 ([facility]) doxycycline hyclate 100 MG Oral Tablet Doxycycline Hyc late 100 MG Doxycycline Hyclate 100 MG 11/15/2019 12:00:00 AM EDT 1.0 {tablet} suspended Doxycycline Hyclate 100 MG eCW1 ([facility]) doxycycline hyclate 100 MG Oral Tablet Doxycycline Hyc late 100 MG Doxycycline Hyclate 100 MG 11/15/2019 12:00:00 AM EDT 1.0 {tablet} suspended Doxycycline Hyclate 100 MG eCW1 ([facility]) doxycycline hyclate 100 MG Oral Tablet Doxycycline Hyc late 100 MG Doxycycline Hyclate 100 MG 11/15/2019 12:00:00 AM EDT 1.0 {tablet} suspended Doxycycline Hyclate 100 MG eCW1 ([facility]) doxycycline hyclate 100 MG Oral Tablet Doxycycline Hyc late 100 MG Doxycycline Hyclate 100 MG 11/15/2019 12:00:00 AM EDT 1.0 {tablet} suspended Doxycycline Hyclate 100 MG eCW1 ([facility]) doxycycline hyclate 100 MG Oral Tablet Doxycycline Hyc late 100 MG Doxycycline Hyclate 100 MG 11/15/2019 12:00:00 AM EDT 1.0 {tablet} suspended Doxycycline Hyclate 100 MG eCW1 ([facility]) doxycycline hyclate 100 MG Oral Tablet Doxycycline Hyc late 100 MG Doxycycline Hyclate 100 MG 11/15/2019 12:00:00 AM EDT 1.0 {tablet} suspended Doxycycline Hyclate 100 MG eCW1 ([facility]) doxycycline hyclate 100 MG Oral Tablet Doxycycline Hyc late 100 MG Doxycycline Hyclate 100 MG 11/15/2019 12:00:00 AM EDT 1.0 {tablet} suspended Doxycycline Hyclate 100 MG eCW1 ([facility]) doxycycline hyclate 100 MG Oral Tablet Doxycycline Hyc late 100 MG Doxycycline Hyclate 100 MG 11/15/2019 12:00:00 AM EDT 1.0 {tablet} suspended Doxycycline Hyclate 100 MG eCW1 ([facility]) doxycycline hyclate 100 MG Oral Tablet Doxycycline Hyc late 100 MG Doxycycline Hyclate 100 MG 11/15/2019 12:00:00 AM EDT 1.0 {tablet} suspended Doxycycline Hyclate 100 MG eCW1 ([facility]) doxycycline hyclate 100 MG Oral Tablet Doxycycline Hyc late 100 MG Doxycycline Hyclate 100 MG 11/15/2019 12:00:00 AM EDT 1.0 {tablet} suspended Doxycycline Hyclate 100 MG eCW1 ([facility]) doxycycline hyclate 100 MG Oral Tablet Doxycycline Hyc late 100 MG Doxycycline Hyclate 100 MG 11/15/2019 12:00:00 AM EDT 1.0 {tablet} suspended Doxycycline Hyclate 100 MG eCW1 ([facility]) doxycycline hyclate 100 MG Oral Tablet Doxycycline Hyc late 100 MG Doxycycline Hyclate 100 MG 11/15/2019 12:00:00 AM EDT 1.0 {tablet} suspended Doxycycline Hyclate 100 MG eCW1 ([facility]) doxycycline hyclate 100 MG Oral Tablet Doxycycline Hyc late 100 MG Doxycycline Hyclate 100 MG 11/15/2019 12:00:00 AM EDT 1.0 {tablet} suspended Doxycycline Hyclate 100 MG eCW1 ([facility]) doxycycline hyclate 100 MG Oral Tablet Doxycycline Hyc late 100 MG Doxycycline Hyclate 100 MG 11/15/2019 12:00:00 AM EDT 1.0 {tablet} suspended Doxycycline Hyclate 100 MG eCW1 ([facility]) doxycycline hyclate 100 MG Oral Tablet Doxycycline Hyc late 100 MG Doxycycline Hyclate 100 MG 11/15/2019 12:00:00 AM EDT 1.0 {tablet} suspended Doxycycline Hyclate 100 MG eCW1 ([facility]) doxycycline hyclate 100 MG Oral Tablet Doxycycline Hyc late 100 MG Doxycycline Hyclate 100 MG 11/15/2019 12:00:00 AM EDT 1.0 {tablet} suspended Doxycycline Hyclate 100 MG eCW1 ([facility]) doxycycline hyclate 100 MG Oral Tablet Doxycycline Hyc late 100 MG Doxycycline Hyclate 100 MG 11/15/2019 12:00:00 AM EDT 1.0 {tablet} active Doxycycline Hyclate 100 MG eCW1 ([facility]) 100 mg 11/15/2019 12:00:00 AM EDT capsule 20 TAKE ONE CAPSULE BY MOUTH TWICE A DAY FOR 10 DAYS TAKE ONE CAPSULE BY MOUTH TWICE A DAY FOR 10 DAYS SOLD : 11/15/2019 [facility] doxycycline hyclate 100 MG Oral Tablet Doxycycline Hyc late 100 MG Doxycycline Hyclate 100 MG 11/15/2019 12:00:00 AM EDT 1.0 {tablet} suspended Doxycycline Hyclate 100 MG eCW1 ([facility]) doxycycline hyclate 100 MG Oral Tablet Doxycycline Hyc late 100 MG Doxycycline Hyclate 100 MG 11/15/2019 12:00:00 AM EDT 1.0 {tablet} suspended Doxycycline Hyclate 100 MG eCW1 ([facility]) doxycycline hyclate 100 MG Oral Tablet Doxycycline Hyc late 100 MG Doxycycline Hyclate 100 MG 11/15/2019 12:00:00 AM EDT 1.0 {tablet} suspended Doxycycline Hyclate 100 MG eCW1 ([facility]) doxycycline hyclate 100 MG Oral Tablet Doxycycline Hyc late 100 MG Doxycycline Hyclate 100 MG 11/15/2019 12:00:00 AM EDT 1.0 {tablet} suspended Doxycycline Hyclate 100 MG eCW1 ([facility]) 600 mg 10/31/2019 12:00:00 AM EDT tablet 30 TAKE ONE TABLET BY MOUTH EVERY 6 HOURS NEEDED FOR PAIN TAKE ONE TABLET BY MOUTH EVERY 6 HOURS A S NEEDED FOR PAIN SOLD: 10/31/2019 [facility] 1.5 mg/0.5 mL 10/26/2019 12:00:00 AM EDT pen injector 2 INJECT 0.5ML SUBCUTANEOUSLY ONCE WEEKLY INJECT 0.5ML SUBCUTANEOUSLY ONCE WEEKLY SOLD: 10/29/2019 [facility] 40 mg 10/25/2019 12:00:00 AM EDT tablet 30 TAKE ONE TABLET BY MOUTH EVERY MORNING TAKE ONE TABLET BY MOUTH EVERY MORNING SOLD: 03/10/2020 [facility] 40 mg 10/25/2019 12:00:00 AM EDT tablet 30 TAKE ONE TABLET BY MOUTH EVERY MORNING TAKE ONE TABLET BY MOUTH EVERY MORNING SOLD: 01/04/2020 [facility] 40 mg 10/25/2019 12:00:00 AM EDT tablet 30 TAKE ONE TABLET BY MOUTH EVERY MORNING TAKE ONE TABLET BY MOUTH EVERY MORNING SOLD: 10/29/2019 [facility] 40 mg 10/25/2019 12:00:00 AM EDT tablet 30 TAKE ONE TABLET BY MOUTH EVERY MORNING TAKE ONE TABLET BY MOUTH EVERY MORNING SOLD: 12/05/2019 [facility] 500 mg 10/11/2019 12:00:00 AM EDT tablet 14 TAKE ONE TABLET BY MOUTH TWICE A DAY FOR 7 DAYS TAKE ONE TABLET BY MOUTH TWICE A DAY FOR 7 DAYS SOLD: 2019 [facility] 5 mg 10/05/2019 12:00:00 AM EDT tablet 30 TAKE ONE TABLET BY MOUTH EVERY DAY TAKE ONE TABLET BY MOUTH EVERY DAY SOLD: 12/05/2019 [facility] 5 mg 10/05/2019 12:00:00 AM EDT tablet 30 TAKE ONE TABLET BY MOUTH EVERY DAY TAKE ONE TABLET BY MOUTH EVERY DAY SOLD: 10/05/2019 [facility] Amlodipine 5 MG Oral Tablet Amlodipine Besylate 10/05/2019 12:00:00 A M EDT ORAL completed MEDENT ([facility]) 1.5 mg/0.5 mL 09/29/2019 12:00:00 AM EDT pen injector 2 INJECT 0.5ML UNDER THE SKIN ONCE WEEKLY INJECT 0.5ML UNDER THE SKIN ONCE WEEKLY SOLD: 10/01/2019 [facility] 100 unit/mL 09/28/2019 12:00:00 AM EDT solution 30 INJECT 12 UNITS UNDER THE SKIN WITH EACH MEAL PER SLIDING SCALE, MAXIMUM DAILY DOSE = 50 UNITS INJECT 12 UNITS UNDER THE SKIN WITH EACH MEAL PER SLIDING SCALE, MAXIMUM DAILY DOSE = 50 UNITS SOLD: 10/01/2019 [facility] 100 unit/mL 09/28/2019 12:00:00 AM EDT solution 30 INJECT 12 UNITS UNDER THE SKIN WITH EACH MEAL PER SLIDING SCALE, MAXIMUM DAILY DOSE = 50 UNITS INJECT 12 UNITS UNDER THE SKIN WITH EACH MEAL PER SLIDING SCALE, MAXIMUM DAILY DOSE = 50 UNITS SOLD: 12/05/2019 [facility] 100 unit/mL 09/28/2019 12:00:00 AM EDT solution 30 INJECT 12 UNITS UNDER THE SKIN WITH EACH MEAL PER SLIDING SCALE, MAXIMUM DAILY DOSE = 50 UNITS INJECT 12 UNITS UNDER THE SKIN WITH EACH MEAL PER SLIDING SCALE, MAXIMUM DAILY DOSE = 50 UNITS SOLD: 03/10/2020 [facility] 1,000 mg 09/21/2019 12:00:00 AM EDT tablet 60 TAKE ONE TABLET BY MOUTH TWICE A DAY TAKE ONE TABLET BY MOUTH TWICE A DAY SOLD: 10/29/2019 [facility] 60 mg 09/21/2019 12:00:00 AM EDT capsule,delayed release (DR/EC) 30 TAKE ONE CAPSULE BY MOUTH EVERY DAY TAKE ONE CAPSULE BY MOUTH EVERY DAY SOLD: 10/29/2019 [facility] 1,000 mg 09/21/2019 12:00:00 AM EDT tablet 60 TAKE ONE TABLET BY MOUTH TWICE A DAY TAKE ONE TABLET BY MOUTH TWICE A DAY SOLD: 10/01/2019 [facility] 1,000 mg 09/21/2019 12:00:00 AM EDT tablet 60 TAKE ONE TABLET BY MOUTH TWICE A DAY TAKE ONE TABLET BY MOUTH TWICE A DAY SOLD: 12/05/2019 [facility] 60 mg 09/21/2019 12:00:00 AM EDT capsule,delayed release (DR/EC) 30 TAKE ONE CAPSULE BY MOUTH EVERY DAY TAKE ONE CAPSULE BY MOUTH EVERY DAY SOLD: 12/05/2019 [facility] 60 mg 09/21/2019 12:00:00 AM EDT capsule,delayed release (DR/EC) 30 TAKE ONE CAPSULE BY MOUTH EVERY DAY TAKE ONE CAPSULE BY MOUTH EVERY DAY SOLD: 01/04/2020 [facility] 60 mg 09/21/2019 12:00:00 AM EDT capsule,delayed release (DR/EC) 30 TAKE ONE CAPSULE BY MOUTH EVERY DAY TAKE ONE CAPSULE BY MOUTH EVERY DAY SOLD: 10/01/2019 [facility] 1,000 mg 09/21/2019 12:00:00 AM EDT tablet 60 TAKE ONE TABLET BY MOUTH TWICE A DAY TAKE ONE TABLET BY MOUTH TWICE A DAY SOLD: 01/04/2020 [facility] BLOOD SUGAR DIAGNOSTIC 09/01/2019 12:00:00 AM EST strip 200 USE DIRECTED FOUR TIMES A DAY USE DIRECTED FOUR TIMES A DAY SOLD: 12/14/2019 [facility] 0.5 mL 31 gauge x 5/16" 09/01/2019 12:00:00 AM EST syringe 100 USE DIRECTED THREE TIMES A DAY WITH ADMELOG USE DIRECTED THREE TIMES A DAY WITH ADMELOG SOLD: 12/14/2019 [facility] 0.5 mL 31 gauge x 5/16" 09/01/2019 12:00:00 AM EST syringe 100 USE DIRECTED THREE TIMES A DAY WITH ADMELOG USE DIRECTED THREE TIMES A DAY WITH ADMELOG SOLD: 09/02/2019 [facility] 31 gauge x 3/16" 09/01/2019 12:00:00 AM EST needle 100 USE DIRECTED WITH INSULIN PEN USE DIRECTED WITH INSULIN PEN SOLD: 09/02/2019 [facility] BLOOD SUGAR DIAGNOSTIC 09/01/2019 12:00:00 AM EST strip 200 USE DIRECTED FOUR TIMES A DAY USE DIRECTED FOUR TIMES A DAY SOLD: 09/02/2019 [facility] 1.5 mg/0.5 mL 08/31/2019 12:00:00 AM EST pen injector 2 INJECT UNDER THE SKIN ONCE WEEKLY INJECT UNDER THE SKIN ONCE WEEKLY SOLD: 09/02/2019 [facility] 0.5 ML dulaglutide 3 MG/ML Auto-Injector [Trulicity] Yessy ty 08/30/2019 12:00:00 AM EST SUBCUTANEOUS active MEDENT ([facility]) 100 unit/mL (3 mL) 08/29/2019 12:00:00 AM EST insulin pen 30 INJECT 50 UNITS UNDER THE SKIN BEFORE BREAKFAST AND DINNER INJECT 50 UNITS UNDER THE SKIN BEFORE BREAKFAST AND DINNER SOLD: 09/02/2019 [facility] 100 unit/mL (3 mL) 08/29/2019 12:00:00 AM EST insulin pen 30 INJECT 50 UNITS UNDER THE SKIN BEFORE BREAKFAST AND DINNER INJECT 50 UNITS UNDER THE SKIN BEFORE BREAKFAST AND DINNER SOLD: 12/05/2019 [facility] 100 unit/mL (3 mL) 08/29/2019 12:00:00 AM EST insulin pen 30 INJECT 50 UNITS UNDER THE SKIN BEFORE BREAKFAST AND DINNER INJECT 50 UNITS UNDER THE SKIN BEFORE BREAKFAST AND DINNER SOLD: 10/29/2019 [facility] 50 mg 07/20/2019 12:00:00 AM EST tablet 30 TAKE ONE TABLET BY MOUTH EVERY DAY TAKE ONE TABLET BY MOUTH EVERY DAY SOLD: 12/05/2019 [facility] Losartan Potassium 50 MG Oral Tablet LOSARTAN POTASSIUM 12:00:00 AM EST tablet 90 TAKE ONE TABLET BY MOUTH MANA RY DAY TAKE ONE TABLET BY MOUTH EVERY DAY SOLD: 07/28/2019 [facility] Losartan Potassium 50 MG Oral Tablet LOSARTAN POTASSIUM 12:00:00 AM EST tablet 30 TAKE ONE TABLET BY MOUTH MANA DAY TAKE ONE TABLET BY MOUTH EVERY DAY SOLD: 10/29/2019 [facility] 0.75 mg/0.5 mL 06/30/2019 12:00:00 AM EST pen injector 2 INJECT 0.75MG SUBCUTANEOUSLY ONCE WEEKLY INJECT 0.75MG SUBCUTANEOUSLY ONCE WEEKLY SOLD: 07/01/2019 [facility] BLOOD-GLUCOSE METER 06/30/2019 12:00:00 AM EST misc 1 USE TO TEST BLOOD GLUCOSE THREE TIMES A DAY USE TO TEST BLOOD GLUCOSE THREE TIMES A DAY SOLD: 07/01/2019 [facility] 800-160 mg 06/30/2019 12:00:00 AM EST tablet 6 TAKE ONE TABLET BY MOUTH TWICE A DAY TAKE ONE TABLET BY MOUTH TWICE A DAY SOLD: 07/01/2019 [facility] Sulfamethoxazole 800 MG / Trimethoprim 160 MG Oral Tablet [B actrim] Bactrim DS 06/30/2019 12:00:00 AM EST ORAL completed MEDENT ([facility]) 0.75 mg/0.5 mL 06/30/2019 12:00:00 AM EST pen injector 2 INJECT 0.75MG SUBCUTANEOUSLY ONCE WEEKLY INJECT 0.75MG SUBCUTANEOUSLY ONCE WEEKLY SOLD: 08/25/2019 [facility] 0.75 mg/0.5 mL 06/30/2019 12:00:00 AM EST pen injector 2 INJECT 0.75MG SUBCUTANEOUSLY ONCE WEEKLY INJECT 0.75MG SUBCUTANEOUSLY ONCE WEEKLY SOLD: 07/28/2019 [facility] 0.5 ML dulaglutide 1.5 MG/ML Auto-Injector [Trulicity] [facility] 06/29/2019 12:00:00 AM EST completed MEDENT ([facility]) Glucometer 06/29/2019 12:00:00 AM EST active MEDENT ([facility]) 40 mg 06/24/2019 12:00:00 AM EST tablet 90 TAKE ONE TABLET BY MOUTH AT BEDTIME TAKE ONE TABLET BY MOUTH AT BEDTIME SOLD: 06/24/2019 [facility] Ozempic (0.25 Or 0.5 MG/Dose) Ozempic (0.25 Or 0.5 MG/Dose) 06/23/2019 12:00:00 AM EST SUBCUTANEOUS completed M EDENT ([facility]) 0.5 ML dulaglutide 1.5 MG/ML Auto-Injector [Trulicity] Ozempic (0.25 Or 0.5 MG/Dose) 06/23/2019 12:00:00 AM EST SUBCUTANEOUS complet ed MEDENT ([facility]) 1,000 mg 05/10/2019 12:00:00 AM EST tablet 60 TAKE ONE TABLET BY MOUTH TWICE A DAY TAKE ONE TABLET BY MOUTH TWICE A DAY SOLD: 08/26/2019 [facility] 60 mg 05/10/2019 12:00:00 AM EST capsule,delayed release (DR/EC) 30 TAKE ONE CAPSULE BY MOUTH EVERY DAY TAKE ONE CAPSULE BY MOUTH EVERY DAY SOLD: 07/28/2019 [facility] 60 mg 05/10/2019 12:00:00 AM EST capsule,delayed release (DR/EC) 30 TAKE ONE CAPSULE BY MOUTH EVERY DAY TAKE ONE CAPSULE BY MOUTH EVERY DAY SOLD: 05/19/2019 [facility] 60 mg 05/10/2019 12:00:00 AM EST capsule,delayed release (DR/EC) 30 TAKE ONE CAPSULE BY MOUTH EVERY DAY TAKE ONE CAPSULE BY MOUTH EVERY DAY SOLD: 06/24/2019 [facility] 1,000 mg 05/10/2019 12:00:00 AM EST tablet 60 TAKE ONE TABLET BY MOUTH TWICE A DAY TAKE ONE TABLET BY MOUTH TWICE A DAY SOLD: 05/19/2019 [facility] 1,000 mg 05/10/2019 12:00:00 AM EST tablet 60 TAKE ONE TABLET BY MOUTH TWICE A DAY TAKE ONE TABLET BY MOUTH TWICE A DAY SOLD: 07/28/2019 [facility] 1,000 mg 05/10/2019 12:00:00 AM EST tablet 60 TAKE ONE TABLET BY MOUTH TWICE A DAY TAKE ONE TABLET BY MOUTH TWICE A DAY SOLD: 06/24/2019 [facility] 60 mg 05/10/2019 12:00:00 AM EST capsule,delayed release (DR/EC) 30 TAKE ONE CAPSULE BY MOUTH EVERY DAY TAKE ONE CAPSULE BY MOUTH EVERY DAY SOLD: 08/26/2019 [facility] 31 gauge x 3/16" 04/14/2019 12:00:00 AM EDT needle 100 USE WITH INSULIN PEN USE WITH INSULIN PEN SOLD: 12/14/2019 [facility] 100 unit/mL (3 mL) 04/05/2019 12:00:00 AM EDT insulin pen 30 INJECT 50 UNITS UNDER THE SKIN BEFORE BREAKFAST AND DINNER INJECT 50 UNITS UNDER THE SKIN BEFORE BREAKFAST AND DINNER SOLD: 07/01/2019 [facility] 100 unit/mL (3 mL) 04/05/2019 12:00:00 AM EDT insulin pen 30 INJECT 50 UNITS UNDER THE SKIN BEFORE BREAKFAST AND DINNER INJECT 50 UNITS UNDER THE SKIN BEFORE BREAKFAST AND DINNER SOLD: 07/28/2019 [facility] 100 unit/mL 01/27/2019 12:00:00 AM EDT solution 30 INJECT UNDER THE SKIN PER SLIDING SCALE , MAXIMUM DAILY DOSE = 30 UNITS INJECT UNDER THE SKIN PER SLIDING SCALE , MAXIMUM DAILY DOSE = 30 UNITS SOLD: 07/18/2019 [facility] Losartan Potassium 50 MG Oral Tablet LOSARTAN POTASSIUM 12:00:00 AM EDT tablet 30 TAKE ONE TABLET BY MOUTH MANA DAY TAKE ONE TABLET BY MOUTH EVERY DAY SOLD: 06/24/2019 [facility] 50 mg 01/19/2019 12:00:00 AM EDT tablet 30 TAKE ONE TABLET BY MOUTH EVERY DAY TAKE ONE TABLET BY MOUTH EVERY DAY SOLD: 05/19/2019 [facility] Insurance Providers Payer name Policy type / Coverage type Policy ID Covered democrat ID Covered democrat's relationship to pryor Policy Pryor Plan Information [facility] COMMUNITY PLAN [facility] [id number] SP [id number] [facility] COMMUNITY PLAN [facility] [id number] SP [id number] [facility] COMMUNTY PLAN [id number] [facility] COMMUNITY PLAN [facility] [id number] SP [id number] [facility](MCAID) O [id number] S [id number] [employer] MEDICAID [id number] S [id number] [facility] COMMUNITY PLAN XIX [id number] 18 [id number] [facility](MCAID) O [id number] S [id number] UNHC COMMUNITY PLAN MCDHMO [id number] SP [id number] UNHC COMMUNITY PLAN MCDHMO [id number] SP [id number] [facility] Communty Plan Medicaid [id number] Self [id number] [facility] Communty Plan Medicaid [id number] Self [id number] [facility] Communty Plan Medicaid [id number] Self [id number] ANSI-Medicaid [id number] [facility] Communty Plan Medicaid [id number] Self [id number] ANSI-Medicaid [id number] ANSI-Medicaid [id number] ANSI-Medicaid [id number] ANSI-Medicaid [id number] [facility] Communty Plan Medicaid [id number] Self [id number] ANSI-Medicaid [id number] [facility] Communty Plan Medicaid [id number] Self [id number] ANSI-Medicaid [id number] ANSI-Medicaid [id number] ANSI-Medicaid [id number] [facility] [id number] S [id number] ANSI-Medicaid [id number] ANSI-Medicaid [id number] ANSI-Medicaid [id number] ANSI-Medicaid [id number] ANSI-Medicaid [id number] ANSI-Medicaid [id number] ANSI-Medicaid [id number] ANSI-Medicaid [id number] [employer] COMMUNITY PLAN [facility] [id number] SP [id number] ANSI-Medicaid [id number] ANSI-Medicaid [id number] ANSI-Medicaid [id number] ANSI-Medicaid [id number] [facility] [id number] S [id number] ANSI-Medicaid [id number] ANSI-Medicaid [id number] ANSI-Medicaid [id number] ANSI-Medicaid [id number] [facility] [id number] S [id number] [facility] [id number] S [id number] [facility] COMMUNITY PLAN MCDHMO [id number] SP [id number] [facility] COMMUNITY PLAN MCDO [id number] SP [id number] [facility] I [id number] Self [id number] [facility] MED[facility] [id number] S [id number] [facility] I [id number] Self [id number] [facility] COMMUNITY PLAN MCDO [id number] SP [id number] [facility] [id number] S [id number] [facility] I [id number] Self [id number] UNHC COMMUNITY PLAN MCDHMO [id number] SP [id number] [employer]HC COMMUNITY PLAN MCDHMO [id number] SP [id number] UNHC AMERICHOICE XIX HMO [id number] 18 [id number] [facility](MCAID) O [id number] S [id number] [facility] Community Plan Commercial Self MEDICAID [id number] SP [id number] [facility] UNAVAILABLE UNAVAILABLE BLUE CROSS MAYES PLAN [id number] SP [id number] HMO BLUE [id number] SP [id number] [facility] COMMUNITY PLAN [id number] S [id number] BLUE CROSS BLUE SHIELD-CLINIC [id number] 18 [id number] [employer] P [id number] S [id number] SELF PAY [id number] SP [id number] BLUE CROSS MAYES PLAN [id number] SP [id number] BLUE CROSS BLUE SHIELD-O/P [id number] Problems, Conditions, and Diagnoses Code Display Name Description Problem Type Effective Dates Data Source(s) A49.01 353010229 MSSA (methicillin susceptible Staphylococ cus aureus) Problem 12/15/2019 12:00:00 AM EDT eCW1 ([facility]) L02.611 [id number] Foot abscess, right Problem 12:00:00 AM EDT eCW1 ([facility]) 02295547 Essential hypertension Essential hypertension Problem 08/30/2019 12:00:00 AM EST MEDENT ([facility]) L97.511 [id number] Non-pressure chronic ulcer of other part of right foot limited to breakdown of skin Problem 08/29/2019 12:00:00 AM [facility] M77.31 [id number] Calcaneal spur, right foot Problem 08/29/2019 12:00:00 AM EST eCW1 ([facility]) L97.511 616057308 Non-pressure chronic ulcer of other part of right foot limited to breakdown of skin Problem 08/29/2019 12:00:00 AM EST [facility] M77.31 [id number] Calcaneal spur, right foot Problem 08/29/2019 12:00:00 AM EST eCW1 ([facility]) 438416392 Amputated forefoot Amputated forefoot Problem 12:00:00 AM EST MEDENT ([facility]) [id number] Histological finding Histological finding Problem 06/23/2019 12:00:00 AM EST MEDENT ([facility]) 613594771 Obesity Obesity Problem 06/23/2019 12:00:00 AM ES T MEDENT ([facility]) 457179567 Chronic ulcer of foot Chronic ulcer of foot Problem 06/23/2019 12:00:00 AM EST MEDENT ([facility]) Note: right foot chronic ulcer being rylan ated by Dr. Huston. E669 Obesity, unspecified Obesity, unspecified Diagnosis 04/18/2020 01:22:[address] [facility] E785 Hyperlipidemia, unspecified Hyperlipidemia, unspecifie d Diagnosis 04/18/2020 01:22:[address] [facility] I10 Essential (primary) hypertension Essential (primary) h ypertension Diagnosis 04/18/2020 01:22:[address] [facility] [id number] Type 2 diabetes mellitus with foot ulcer Type 2 diabetes mellitus with foot ulcer Diagnosis 04/18/2020 01:22:[address] [facility] N76.0 Acute vaginitis ACUTE VAGINITIS Diagnosis 02/08/2020 11:0 7:[address] [facility] B95.61 Methicillin susceptible Stap hylococcus aureus infection as the cause of diseases classified elsewhere METHICILLIN SUSCEP STAPH INFCT CAUSING DIS CLASSD Diagnosis 02/08/2020 11:07:[address] [facility] Z79.4 salvage determiner (current) use of insulin CUSTODIAL (CU RRENT) USE OF INSULIN Diagnosis 02/08/2020 11:07:[address] [facility] Z89.421 Acquired absence of other right toe(s) A CQUIRED ABSENCE OF OTHER RIGHT TOE(S) Diagnosis 02/08/2020 11:07:00 AM [facility] D72.829 Elevated white blood cell count, unspeci fied ELEVATED WHITE BLOOD CELL COUNT, UNSPECIFIED Diagnosis 02/08/2020 11:07:00 AM [facility] E11.40 Type 2 diabetes mellitus with diabetic n europathy, unspecified TYPE 2 DIABETES MELLITUS WITH DIABETIC NEUROPATHY, Diagnosis 02/08/2020 11:07:[address] [facility] R21 Rash and other nonspecific skin eruption RASH AND OTHER NONSPECIFIC SKIN ERUPTION Diagnosis 02/08/2020 11:07:00 AM [facility] R80.9 Proteinuria, unspecified PROTEINURIA, UNSPECIFIED Diag nosis 02/08/2020 11:07:[address] [facility] E83.42 Hypomagnesemia HYPOMAGNESEMIA Diagnosis 02/08/2020 11:07: [address] [facility] N18.2 Chronic kidney disease, stage 2 (mild) C HRONIC KIDNEY DISEASE, STAGE 2 (MILD) Diagnosis 02/08/2020 11:07:00 AM [facility] E66.9 Obesity, unspecified OBESITY, UNSPECIFIED Diagnosis 02/08/2020 11:07:[address] [facility] F43.10 Post-traumatic stress disorder, unspecif ied POST-TRAUMATIC STRESS DISORDER, UNSPECIFIED Diagnosis 02/08/2020 11:07:00 AM [facility] F41.9 Anxiety disorder, unspecified ANXIETY DISORDER, UNSPEC IFIED Diagnosis 02/08/2020 11:07:00 [facility] E78.5 Hyperlipidemia, unspecified HYPERLIPIDEMIA, UNSPECIFIE D Diagnosis 02/08/2020 11:07:[address] [facility] I12.9 Hypertensive chronic kidney disease with stage 1 through stage 4 chronic kidney disease, or unspecified chronic kidney disease HYPERTENSIVE CHRONIC KIDNEY DISEASE W STG 1-4/UNSP Diagnosis 02/08/2020 11:07:00 AM [facility] L25.9 Unspecified contact dermatitis, unspecif ied cause UNSPECIFIED CONTACT DERMATITIS, UNSPECIFIED CAUSE Diagnosis 02/08/2020 11:07:00 AM [facility] D47.3 Essential (hemorrhagic) thrombocythemia ESSENTIAL (HEMORRHAGIC) THROMBOCYTHEMIA Diagnosis 02/08/2020 11:07:00 AM [facility] D64.9 Anemia, unspecified ANEMIA, UNSPECIFIED Diagnosis 0 02/08/2020 11:07:[address] 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 E11.65 Type 2 diabetes mellitus with hyperglyce criss TYPE 2 DIABETES MELLITUS WITH HYPERGLYCEMIA Diagnosis 02/08/2020 11:07:00 AM [facility] E44.0 Moderate protein-calorie malnutrition MO DERATE PROTEIN-CALORIE MALNUTRITION Diagnosis 02/08/2020 11:07:00 AM [facility] F31.30 Bipolar disorder, current ep isode depressed, mild or moderate severity, unspecified BIPOLAR DISORD, CRNT EPSD DEPRESS, MILD OR MOD SEV Diagnosis 02/08/2020 11:07:[address] 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 [id number] Body mass index (BMI) 45.0-49.9, adult B sim mass index (BMI) 45.0-49.9, adult Diagnosis 06/23/2019 01:28:00 PM [facility] Surgeries/Procedures Procedure Description Date Indications Data Source(s) FINE NEEDLE ASPIRATION W/O IMAGING GUIDANCE 06/27/2020 12:00:00 AM EST [email or web address] ([facility]) FINE NEEDLE ASPIRATION W/O IMAGING GUIDANCE 06/05/2020 12:00:00 AM EST eCW1 ([facility]) FINE NEEDLE ASPIRATION W/O IMAGING GUIDANCE 05/29/2020 12:00:00 AM EST eCW1 [facility] [facility]) FINE NEEDLE ASPIRATION W/O IMAGING GUIDANCE 04/25/2020 12:00:00 AM EDT eCW1 ([facility]) FINE NEEDLE ASPIRATION W/O IMAGING GUIDANCE 04/11/2020 12:00:00 AM EDT eCW1 ([facility]) FINE NEEDLE ASPIRATION W/O IMAGING GUIDANCE 04/04/2020 12:00:00 AM EDT eCW1 ([facility]) Introduction of Other Anti-infective int o Peripheral Vein, Percutaneous Approach 02/08/2020 12:00:[address] [facility] Muscle Performance Treatment of Musculoskeletal System - Who le Body 02/08/2020 12:00:[address] [facility] FINE NEEDLE ASPIRATION W/O IMAGING GUIDANCE 01/18/2020 12:00:00 AM EDT eCW1 ([facility]) FINE NEEDLE ASPIRATION W/O IMAGING GUIDANCE 01/11/2020 12:00:00 AM EDT eCW1 ([facility]) FINE NEEDLE ASPIRATION W/O IMAGING GUIDANCE 12/12/2019 12:00:00 AM EDT eCW1 ([facility]) FINE NEEDLE ASPIRATION W/O IMAGING GUIDANCE 11/23/2019 12:00:00 AM EDT eCW1 ([facility]) SHALA SUBQ TISSUE 20 SQ CM/< 11/07/2019 12:00:00 AM EDT eCW1 ([facility]) Diabetic Foot Exam 08/30/2019 12:00:00 AM EST [facility] ([facility] ) ACTIVE WOUND CARE/20 CM OR < 08/29/2019 12:00:00 AM ES T eCW1 ([facility]) Brief Emotional/Behav Assessment W/ Scoring Doc Per Standard Inst 08/03/2019 12:00:00 AM EST [facility] ([facility]) Mammography (procedure) 07/13/2019 12:00:00 AM EST [facility] ([facility]) Office Visit, Est Pt., Level 2 FC 07/12/2019 12:00:00 AM EST eCW1 ([facility]) Office Visit, Est Pt., Level 2 PC 07/12/2019 12:00:00 AM EST eCW1 ([facility]) Office Visit, Est Pt., Level 3 PC 06/28/2019 12:00:00 AM EST eCW1 ([facility]) Office Visit, Est Pt., Level 3 FC 06/28/2019 12:00:00 AM EST eCW1 ([facility]) Office Visit, Est Pt., Level 4 FC 06/21/2019 12:00:00 AM EST eCW1 ([facility]) Influenza immunization administered or previously received 06/21/2019 12:00:00 AM EST eCW1 ([facility]) Results ID Date Data Source [id number] 03/10/2020 08:33:00 AM EDT [facility] l See AddendumSummary of Hospitalizat ionReason for AdmissionOsteomylitis of the right cuboid Hospital CoursePt admitted on 02/08/20 for prolonged IV abx therapy for osteomylitis of the right cuboid. The Pt had been dealing with a chronic infection since October and wasbeing treated by wound care . He infection progressed and she was sent to the hospital by [facility] for further evaluation. She was seen by podiatry and underwent debridement while in the [facility]opital. MRI performed was c/w cuboid osteomyliis , cultures were MSSA positive. ID consult recommend 6 weeks of Nafcillin through Mar 09. She was covered here with Oxacillin and has been followed by for ID. while here the pt has engaged in PT/OT and has been doing well. She has not fevered and her labs are stable. Her stay has been unremarkable with the exception of a recuurent rash that has been refractory to multiple treatments. She has an appointment scheduled with dermatology in a few days. Labs have been stable and wound is improving. The pt has completed her course ofIV abx and will be dc'd home on dicloxacillin 250 mg QID for for 15 days total per ID. She will be recieving in home nursing services/ wound care as well as PT/OT. Pt states she is feeling well as is quite motivated to go home. All systems reviewed and negative for acute or new symptoms. Diagnoses (Current Visit)Problem List 1. Diabetes type 2, controlled 2. Cellulitis and abscess of foot 3. Wound infection after surgery 4. Yeast vaginitis 5. Obesity (BMI 35.0-39.9 without comorbidity) 6. Diabetic neuropathy 7. Full code status 8. Osteomyelitis of right foot 9. Diabetes mellitus type 2 with complications 10. Diarrhea 11. Elevated erythrocyte sedimentation rate 12. Normocytic anemia 13. Thrombocytosis 14. Elevated LFTs 15. Contact dermatitis 16. Left foot pain 17. Hypertension 18. Hyperlipidemia 19. Anxiety 20. Depression 21. Bipolar disorder 22. PTSD (post-traumatic stress disorder) 23. Obesity 24. Rash and nonspecific skin eruption 25. Right foot pain 26. Phantom limb pain 27. Leukocytosis 28. Elevated C-reactive protein (CRP) 29. Prerenal azotemia 30. Chronic kidney disease, stage II (mild) 31. Hypomagnesemia 32. Moderate protein-calorie malnutrition 33. Diabetes mellitus type 2 with complications 34. History of transmetatarsal amputation of foot Diagnoses (Other)Past Pertinent History 1. Cellulitis and abscess of foot 2. Diabetes type 2, controlled 3. Wound infection after surgery 4. Yeast vaginitis 5. Obesity (BMI 35.0-39.9 without comorbidity) 6. Diabetic neuropathy 7. Full code status 8. Osteomyelitis of right foot 9. Diabetes mellitus type 2 with complications 10. Diarrhea 11. Elevated erythrocyte sedimentation rate 12. Normocytic anemia 13. Thrombocytosis 14. Elevated LFTs 15. Contact dermatitis 16. Left foot pain 17. Hypertension 18. Hyperlipidemia 19. Depression 20. Anxiety 21. Bipolar disorder 22. PTSD (post-traumatic stress disorder) 23. Obesity 24. Right foot pain 25. Rash and nonspecific skin eruption 26. Phantom limb pain 27. Leukocytosis 28. Elevated C-reactive protein (CRP) 29. Prerenal azotemia 30. Chronic kidney disease, stage II (mild) 31. Hypomagnesemia 32. Moderate protein-calorie malnutrition 33. Diabetes mellitus type 2 with complications 34. History of transmetatarsal amputation of foot Patient's Discharge ConditionVital SignsVital Signs Date Time Temp Pulse Resp B/P B/P Pulse O2 O2 Flow FiO2 Mean Ox Delivery Rate 03/09 0817 98.3 83 18 111/71 97 03/08 1853 98.7 87 18 129/74 98 Patient's Discharge ConditionDischarge date 03/10/20Discharge condition stableDischarge DispositionHome with services Physical ExaminationEENT PERRL/EOMINeck normal inspection, non-tender, suppleRespiratory lungs clear, normal breath sounds, no respiratory distressCardiovascular regular rate/rhythm, no edema, no gallop, no JVD, no murmurGastrointestinal normal bowel sounds, non tender, soft, no organomegalyBack normal inspection, no CVA tenderness, no vertebral tendernessExtremity no calf tenderness, no pedal edema, pelvis stable, Partiasl amputaion of right foot with clean, dry bandage intact 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 TOPICAL Twice Daily Ferrous Sulfate (Ferrous Sulfate) 325 MG TABLET ORAL Daily Furosemide* (Lasix*) 20 MG TABLET ORAL Daily Glucagon,Human Recombinant (Glucagen) 1 MG VIAL INJECTION As Directed Dextrose (Glucose) 4 GM TAB.CHEW ORAL As Directed Nystatin (Nystatin) 15 GM POWDER TOPICAL ONDANSETRON HCL (Zofran) 4 MG TABLET ORAL Polyethylene Glycol 3350 (Laxative Peg 3350) 17 GM POWD.PACK ORAL Daily Ascorbic Acid (Ascorbic Acid) 500 MG TABLET ORAL Daily Atorvastatin Calcium (Lipitor) 80 MG TABLET ORAL Daily Fenofibrate (Fenofibrate) 160 MG TABLET ORAL Daily Gabapentin (Neurontin) 300 MG CAPSULE ORAL 3 Times Daily Insulin Aspart, Recombinant* (Novolog*) 100 UNIT/1 ML CARTRIDGE SUB-Q Before Meals & Bedtime Insulin Glargine, Recombinan* (Lantus*) 100 UNIT/1 ML VIAL SUBCUTANEOUSLY Twice Daily Lisinopril (Lisinopril) 20 MG TABLET ORAL Daily Magnesium Oxide (Magnesium) 400 MG TABLET ORAL Daily Methocarbamol (Robaxin-750) 750 MG TABLET ORAL 4 Times A Day as needed for MUSCLE SPASMS Multivitamin (Daily Diet Support) 1 EACH TABLET ORAL Daily Cetirizine HCl* (Zyrtec*) 10 MG TABLET ORAL Daily Qty = 30 Fluconazole* (Diflucan*) 150 MG TABLET ORAL Q7D Qty = 1 Start taking the following new medications:Dicloxacillin Sodium (Dicloxacillin Sodium) 250 MG CAPSULE 250 MILLIGRAM ORAL 4 Times A Day Days = 15 Qty = 60 Refills = 1 Instructions: Take one capsule every 6 hrs. Do not skip doses or finish before seeing your specialist Activity: As tolerated Diet: Diabetic DietAppointments Follow up with:KULDEEP HUSTON on: 03/14/20 at: 3:30 pmScheduled Appointments #1 Follow up with: Dr Thomas- infectious disease on: 03/13/20 at: 1:00 pm #2 Follow up with: Dr Fletcher- Dermatology on: 03/13/20 ( 3:45 pm) Other Appointments:Call your PCP and schedule an appopintment to be seen within 10 days of dischargeTime spent by provider to complete discharge > 30 minutesCopies toFamily Provider: Dr Hdz- [facility] Smoking Cessation Counseling* I have counseled the patient on the dangers of tobacco use for [less/more] than 3 minutes.* The patient was advised to quit tobacco use. I reviewed the various strategiesof quitting with the patient. ADDENDUM: 03/10/20 0803 ADDENDUM: Ab Gomes on 03/10/20 at 0801 Correction: Pt did not recieve PT/OT while here, [place] have option foe same at [place] if indicated per discharge palnning ADDENDUM : 03/10/20 0833 ADDENDUM: Ab Thomas on 03/10/20 at 0827 Verbalized to pt to continue usual home diabetic medications as previously prescribed. Diabetic home medications were not intially available at the time ofadmission and were not Put into the system; 1. Humalog per SSI 2 Lantus 55 U BIDand Trulicty 3.5 U Q weekly. Pt is very familiar with home dosing schedule. Ajustments if needed can be done by PCP at follow up next week . Name Value Range Interpretation Code Description Data Shelby rce(s) Supporting Document(s) ID Date Data Source [id number] 03/10/2020 07:47:00 AM EDT [facility] Discharge Appointments AppointmentsFoll ow up with:Aranza HUSTON: 03/14/20at: 3:30 pm Scheduled Appointments#1 Follow up with: Dr Thomas- infectious diseaseon: 03/13/20at: 1:00 pm# 2 Follow up with: Dr Fletcher- Dermatology on: 03/13/20 ( 3:45 pm)Other Appointments:Call your PCP and schedule an appopintment to be seen within 10 days ofdischarge Diagnosis & Medication Allergy Information Coded Allergies:cefazolin (02/08/20)fluoxetine (02/08/20)pseudoephedrine (02/08/20)trazodone (02/08/20) DiagnosisProblem ListMedical Problems Anxiety Bipolar disorder Cellulitis and abscess of foot Chronic kidney disease, stage II (mild) Contact dermatitis Depression 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 Diabetes type 2, controlled Diabetic neuropathy Diarrhea Elevated C-reactive protein (CRP) Elevated erythrocyte sedimentation rate Elevated LFTs Full code status Hyperlipidemia Hypertension Hypomagnesemia Left foot pain Leukocytosis Moderate protein-calorie malnutrition Normocytic anemia Obesity Obesity (BMI 35.0-39.9 without comorbidity) Osteomyelitis of right foot Phantom limb pain Prerenal azotemia PTSD (post-traumatic stress disorder) Rash and nonspecific skin eruption Right foot pain Thrombocytosis Wound infection after surgery Yeast vaginitisSurgical Problems History of transmetatarsal amputation of foot Your Medications*Stop taking the following medications:Acetaminophen (Acetaminophen) 325 MG TABLET OR AL Every 4 hrs as needed for PAIN Bisacodyl* (Ducolax*) 5 MG TABLET. ORAL Docusate Sodium (Colace) 100 MG CAPSULE ORAL Twice Daily Emollient Base (Dermabase) 454 GM CREAM..G. TOPICAL Twice Daily Ferrous Sulfate (Ferrous Sulfate) 325 MG TABLET ORAL Daily Furosemide* (Lasix*) 20 MG TABLET ORAL Daily Glucagon,Human Recombinant (Glucagen) 1 MG VIAL INJECTION As Directed Dextrose (Glucose) 4 GM TAB.CHEW ORAL As Directed Nystatin (Nystatin) 15 GM POWDER TOPICAL ONDANSETRON HCL (Zofran) 4 MG TABLET ORAL Polyethylene Glycol 3350 (Laxative Peg 3350) 17 GM POWD.PACK ORAL Daily Ascorbic Acid (Ascorbic Acid) 500 MG TABLET ORAL Daily Atorvastatin Calcium (Lipitor) 80 MG TABLET ORAL Daily Fenofibrate (Fenofibrate) 160 MG TABLET ORAL Daily Gabapentin (Neurontin) 300 MG CAPSULE ORAL 3 Times Daily Insulin Aspart, Recombinant* (Novolog*) 100 UNIT/1 ML CARTRIDGE SUB-Q Before Meals & Bedtime Insulin Glargine, Recombinan* (Lantus*) 100 UNIT/1 ML VIAL SUBCUTANEOUSLY Twice Daily Lisinopril (Lisinopril) 20 MG TABLET ORAL Daily Magnesium Oxide (Magnesium) 400 MG TABLET ORAL Daily Methocarbamol (Robaxin-750) 750 MG TABLET ORAL 4 Times A Day as needed for MUSCLE SPASMS Multivitamin (Daily Diet Support) 1 EACH TABLET ORAL Daily Cetirizine HCl* (Zyrtec*) 10 MG TABLET ORAL Daily Qty = 30 Fluconazole* (Diflucan*) 150 MG TABLET ORAL Q7D Qty = 1 Start taking the following new medications:Dicloxacillin Sodium (Dicloxacillin Sodium) 250 MG CAPSULE 250 MILLIGRAM ORAL 4 Times A Day Days = 15 Qty = 60 Refills = 1 Instructions: Take one capsule every 6 hrs. Do not skip doses or finish before seeing your specialist Vaccine InformationDate Flu Vaccination: FALL 2014Date Tetanus Vaccination: UNKNOWN STATES CURRENT Discharge Instructions Diet:- Diabetic Diet Activity:- As tolerated Finger Stick Glucose: Before meals & at bedtime SmokingSmoker? QUIT LESS THAN 1 YEAR AGO Review & Sign* I understand the instructions I have received: Patient/Family Signature: Date/Time OrderingProvider Signature: Date/Time Discharging Nurse Signature: Date/Time Name Value Range Interpretation Code Description Data Shelby rce(s) Supporting Document(s) ID Date Data Source [id number] 03/08/2020 05:44:00 PM EDT [facility] See AddendumIn-Patient NoteNote:Lab oratory Tests 03/08 628 Chemistry Sodium (136 - 145 mmol/L) 139 Potassium (3.5 - 5.1 mmol/L) 4.5 Chloride (98 - 107 mmol/L) 104 Carbon Dioxide (21 - 32 mmol/L) 29 Anion Gap (5 - 12 mmol/L) 6.0 BUN (7 - 18 mg/dL) 29 H Creatinine (0.6 - 1.0 mg/dL) 0.8 Estimated GFR (MDRD) (mL/min) 75 Glucose (74 - 106 mg/dL) 81 Calcium (8.5 - 10.1 mg/dL) 9.0 Magnesium (1.8 - 2.4 mg/dL) 1.6 L Total Bilirubin (0.2 - 1.0 mg/dL) 0.2 AST (15 - 37 U/L) 19 ALT (12 - 78 U/L) 30 Alkaline Phosphatase (46 - 116 U/L) 99 C-Reactive Protein (0.0 - 3.0 mg/L) 5.2 H Total Protein (6.4 - 8.2 g/dl) 6.3 L Albumin (3.4 - 5.0 gm/dL) 2.8 *L Hematology WBC (4.0 - 10.0 K/mm3) 8.1 RBC (4.00 - 5.50 M/mm3) 3.85 L Hgb (12.0 - 16.0 gm/dL) 11.6 L Hct (36.0 - 48.8 %) 31.0 L MCV (80 - 96 fl) 80.5 MCH (27.0 - 31.0 pg) 30.1 MCHC Differential (32.0 - 36.0 g/dl) 37.4 H RDW (10.0 - 14.5 %) 16.4 H Plt Count (172 - 450 K/mm3) 423 MPV (9.0 - 13. 0 fl) 9.3 Gran % (Auto) (50 - 80.0 %) 43.1 L Gran # (2.0 - 8.00 K/mm3) 3.5 Immature Gran % (0.0 - 0.2 %) 0.4 H Lymphocytes % (25.0 - 50.0 %) 43.0 Monocytes % (2.0 - 10.0 %) 7.6 Eosinophils % (0 - 5.0 %) 4.7 Basophils % (0.0 - 2.0 %) 1.2 Immature Gran # (0.0 - 0.2 K/mm3) 0.0 Lymphocytes # (1.0 - 5.0 K/mm3) 3.5 Monocytes # (0.10 - 1.20 K/mm3) 0.6 Eosinophils # (0.0 - 0.5 K/mm3) 0.4 Basophils # (0.0 - 0.2 K/mm3) 0.1 ESR (0 - 30 mm/hr) 43 H Current MedicationsAcetaminophen 650 MG Q4H PRN PO pain, fever and/or headache Aluminum Hydroxide 30 ML Q4H PRN PO INDIGESTION Amlodipine Besylate 10 MG DAILY PO Atorvastatin Calcium 10 MG HS PO Duloxetine HCl 60 MG DAILY PO Heparin Sodium 5,000 UNIT BID SC Heparin Sodium 300 UNIT Q12H.1 IV Heparin Sodium 300 UNIT FLUSH.PICC PRN IV KEEP PICC LINE PATENT Hydralazine HCl 12.5 MG BID PO Hydroxyzine HCl 25 MG Q8H PRN PO ITCHING/ ITCHINESS Insulin Glargine 40 U BID SC Insulin Human Regular MODERATE DOSE - Sliding Scale < 60 MG/DL * Follow Hypoglycemic Protocol 61 - 150 No COVERAGE 151 - 180 2 UNITS 181 - 240 4 UNITS 241 - 300 6 UNITS 301 - 350 8 UNITS 351 - 400 10 UNITS > 400 Serum Glucose, Notify Provider ACHS SC Losartan Potassium 100 MG DAILY PO Magnesium Oxide 400 MG BID PO Metformin HCl 1,000 MG BID PO Nutritional Formula (Lactose Free) 1 CAP BID PO Nystatin 1 DOSE BID TP Oxycodone/Acetaminophen 1 TAB Q8H PRN PO PAIN SEVERE (7-10/10) Sodium Chloride 10 ML Q12H.1 IV Sodium Chloride 10 ML FLUSH.PICC PRN IV KEEP PICC LINE PATENT Triamcinolone Acetonide 1 DOSE BID PRN TP RASH Vital Signs 03/07 09 2030 0910 Temp 98.9 98.8 Pulse 85 74 Resp 16 18 B/P 128/73 108/61 B/P Mean Pulse Ox 98 97 O2 Delivery O2 Flow Rate FiO2 Patient went to see wound care clinic in [place]. No changes in current recommendations.Will consult with Dr Heaven Thomas whether the patient should still finish her iv antibiotic treatment as initially planned w [facility] was April 09. PAtient'sextensive right foot wound seems to be improvingslightly; there is some granulation tissue forming at the wound borders. We continue daily dressing changes with saoks and irrigation. Patient will have weekly appointments with [facility] wound center. ADDENDUM: 03/08/20 1744 ADDENDUM: Manju Rankin on 03/08/[address] Thomas. Patient may go home on 03/10/2020 on Dicloxacillin. Prescription was sent to [facility]. Name Value Range Interpretation Code Description Data [facility] rce(s) Supporting Document(s) ID Date Data Source [id number] 03/08/2020 06:38:00 AM EDT [facility] Name Value Range Interpretation Code Description Data [facility] rce(s) Supporting Document(s) WHITE BLOOD COUNT 8.1 K/mm3 4.0-10.0 [facility] al RED BLOOD COUNT 3.85 M/mm3 4.00-5.50 L [facility] HEMOGLOBIN 11.6 gm/dL 12.0-16.0 L [facility] HEMATOCRIT 31.0 % 36.0-48.8 L [facility] MEAN CELL VOLUME 80.5 fl 80-96 [facility] MEAN CORPUSCULAR HEMOGLOBIN 30.1 pg 27.0-31.0 [facility] MEAN CORPUSCULAR HGB CONC 37.4 g/dl 32.0-36.0 H [facility] RED CELL DISTRIBUTION WIDTH 16.4 % 10.0-14.5 H [facility] PLATELET COUNT 423 K/mm3 172-450 [facility] MEAN PLATELET VOLUME 9.3 fl 9.0-13.0 [facility] pital GRAN % 43.1 % 50-80.0 L [facility] IG% 0.4 % 0.0-0.2 H [facility] LYMPH % 43.0 % 25.0-50.0 [facility] MONO % 7.6 % 2.0-10.0 [facility] EOS % 4.7 % 0-5.0 [facility] BASO % 1.2 % 0.0-2.0 [facility] GRAN # 3.5 K/mm3 2.0-8.00 [facility] IG# 0.0 K/mm3 0.0-0.2 [facility] LYMPH # 3.5 K/mm3 1.0-5.0 [facility] MONO # 0.6 K/mm3 0.10-1.20 [facility] EOS # 0.4 K/mm3 0.0-0.5 [facility] BASO # 0.1 K/mm3 0.0-0.2 [facility] ID Date Data Source [id number] 03/08/2020 07:37:00 AM EDT [facility] l Name Value Range Interpretation Code Description Data Shelby rce(s) Supporting Document(s) ERYTHROCYTE SEDIMENTATION RATE 43 mm/hr 0-30 H [facility] ID Date Data Source [id number] 03/08/2020 07:13:00 AM EDT [facility] l Name Value Range Interpretation Code Description Data Shelby rce(s) Supporting Document(s) MAGNESIUM 1.6 mg/dL 1.8-2.4 L [facility] ID Date Data Source [id number] 03/08/2020 07:13:00 AM EDT [facility] l Name Value Range Interpretation Code Description Data Shelby rce(s) Supporting Document(s) GLUCOSE 81 mg/dL 74-106 [facility] BLOOD UREA NITROGEN 29 mg/dL 7-18 H [facility] ital CREATININE 0.8 mg/dL 0.6-1.0 [facility] SODIUM 139 mmol/L 136-145 [facility] POTASSIUM 4.5 mmol/L 3.5-5.1 [facility] CHLORIDE 104 mmol/L 98-107 [facility] CO2 29 mmol/L 21-32 [facility] CALCIUM 9.0 mg/dL 8.5-10.1 [facility] ANION GAP 6.0 mmol/L 5-12 [facility] GLOMERULAR FILTRATION RATE 75 mL/min [facility] GFR IS CALCULATED IN mL/min/1.73m2 MELLO L FUNCTION: >90MILDLY DECREASED: 60-89MILDY TO MODERATELY DECREASED: 45-59 MODERATELY TO SEVERELY DECREASED: 30-44SEVERELY DECREASED: 15-29RENAL FAILURE: <15 AST 19 U/L 15-37 [facility] ALT 30 U/L 12-78 [facility] ALKALINE PHOSPHATASE 99 U/L 46-116 [facility] pital TOTAL BILIRUBIN 0.2 mg/dL 0.2-1.0 [facility] TOTAL PROTEIN 6.3 g/dl 6.4-8.2 L [facility] ALBUMIN 2.8 gm/dL 3.4-5.0 *L [facility] ID Date Data Source [id number] 03/08/2020 07:13:00 AM EDT [facility] Name Value Range Interpretation Code Description Data Shelby rce(s) Supporting Document(s) C REACTIVE PROTEIN 5.2 mg/L 0.0-3.0 [facility] Date Data Source [id number] 03/06/2020 08:03:00 AM EDT [facility] Name Value Range Interpretation Code Description Data Shelby rce(s) Supporting Document(s) ERYTHROCYTE SEDIMENTATION RATE 48 mm/hr 0-30 H [facility] ID Date Data Source [id number] 03/06/2020 06:57:00 AM EDT [facility] l Name Value Range Interpretation Code Description Data Shelby rce(s) Supporting Document(s) WHITE BLOOD COUNT 7.3 K/mm3 4.0-10.0 [facility] al RED BLOOD COUNT 3.92 M/mm3 4.00-5.50 L [facility] HEMOGLOBIN 9.9 gm/dL 12.0-16.0 L [facility] HEMATOCRIT 31.5 % 36.0-48.8 L [facility] MEAN CELL VOLUME 80.4 fl 80-96 [facility] MEAN CORPUSCULAR HEMOGLOBIN 25.3 pg 27.0-31.0 L [facility] MEAN CORPUSCULAR HGB CONC 31.4 g/dl 32.0-36.0 L [facility] RED CELL DISTRIBUTION WIDTH 16.2 % 10.0-14.5 H [facility] PLATELET COUNT 419 K/mm3 172-450 [facility] MEAN PLATELET VOLUME 9.7 fl 9.0-13.0 [facility] pital GRAN % 40.5 % 50-80.0 L [facility] IG% 0.3 % 0.0-0.2 H [facility] LYMPH % 43.7 % 25.0-50.0 [facility] MONO % 8.4 % 2.0-10.0 [facility] EOS % 5.6 % 0-5.0 H [facility] BASO % 1.5 % 0.0-2.0 [facility] GRAN # 3.0 K/mm3 2.0-8.00 [facility] IG# 0.0 K/mm3 0.0-0.2 [facility] LYMPH # 3.2 K/mm3 1.0-5.0 [facility] MONO # 0.6 K/mm3 0.10-1.20 [facility] EOS # 0.4 K/mm3 0.0-0.5 [facility] BASO # 0.1 K/mm3 0.0-0.2 [facility] ID Date Data Source [id number] 03/06/2020 07:11:00 AM EDT [facility] Name Value Range Interpretation Code Description Data [facility] rce(s) Supporting Document(s) C REACTIVE PROTEIN 4.6 mg/L 0.0-3.0 [facility] Date Data Source [id number] 03/06/2020 07:11:00 AM EDT [facility] Name Value Range Interpretation Code Description Data Shelby rce(s) Supporting Document(s) GLUCOSE 73 mg/dL 74-106 [facility] BLOOD UREA NITROGEN 29 mg/dL 7-18 H [facility] ital CREATININE 0.8 mg/dL 0.6-1.0 [facility] SODIUM 141 mmol/L 136-145 [facility] POTASSIUM 4.6 mmol/L 3.5-5.1 [facility] CHLORIDE 105 mmol/L 98-107 [facility] CO2 29 mmol/L 21-32 [facility] CALCIUM 9.0 mg/dL 8.5-10.1 [facility] ANION GAP 7.0 mmol/L 5-12 [facility] GLOMERULAR FILTRATION RATE 75 mL/min [facility] GFR IS CALCULATED IN mL/min/1.73m2 MELLO L FUNCTION: >90MILDLY DECREASED: 60-89MILDY TO MODERATELY DECREASED: 45-59 MODERATELY TO SEVERELY DECREASED: 30-44SEVERELY DECREASED: 15-29RENAL FAILURE: <15 AST 18 U/L 15-37 [facility] ALT 30 U/L 12-78 [facility] ALKALINE PHOSPHATASE 103 U/L 46-116 [facility] pital TOTAL BILIRUBIN 0.2 mg/dL 0.2-1.0 [facility] TOTAL PROTEIN 6.3 g/dl 6.4-8.2 [facility] ALBUMIN 2.8 gm/dL 3.4-5.0 *L [facility] ID Date Data Source [id number] 03/04/2020 12:35:00 PM EDT [facility] Progress Note GeneralEncounter:Chart re viewed. Patient interviewed and examined. Labs, medications and orders viewed by me. SubjectiveGeneral Condition:Improving- she continues to work with PT but remains mostly confined to W/C. She is performing most of her ADLs. She recently had f/u with Dr. Huston. She does continue to c/o phantom pain but is trying to limit the amount of Percocet she is using. She is in good spirits, she is eating well and is happy about how well her blood sugar has been, rash is stable- she will require Derm f/u after d/c. ROS:Constitutional: Denies Weight Change, Fever, Chills, Night Sweats, Fatigue, Malaise.ENT/Mouth: Denies Hearing Changes, Ear Pain, Nasal Congestion, Sinus Pain, Hoarseness, sore throat, Rhinorrhea, Swallowing DifficultyEyes: Denies Eye Pain, Swelling, Redness, Foreign Body, Discharge, Vision ChangesCardiovascular: Denies Chest Pain, SOB, PND, Dyspnea on Exertion, Orthopnea, Claudication, Edema, PalpitationsRespiratory: Denies Cough, Sputum, Wheezing, Smoke Exposure, DyspneaGastrointestinal: Denies Nausea, Vomiting, Diarrhea, Constipation, Pain, Heartburn, Anorexia, Dysphagia, Hematochezia, MelenaGenitourinary: Denies Dysuria, Urinary Frequency, Hematuria, Urinary Incontinence, Flank PainMusculoskeletal: Denies Arthralgias, Myalgias, Joint Swelling/Stiffness, Back Pain, Neck PainSkin: Denies Skin Lesions, Pruritis, Neuro: Denies Weakness, Numbness, Paresthesias, Loss of Consciousness, SyncopePsych: Denies Anxiety/Panic, Depression, InsomniaHeme/Lymph: Denies Bruising, Bleeding, LymphadenopathyEndocrine: Denies Polyuria, Polydipsia, Temperature Intolerance ObjectiveNote:Temp; 98.2, Pulse; 82, Resp: 18, B/P: 121/69 SaO2: 99, O2 Status: RA Laboratory Tests 03/03 0615 Chemistry Magnesium (1.8 - 2.4 mg/dL) 1.7 L Current Medic ationsAcetaminophen 650 MG Q4H PRN PO pain, fever and/or headache Aluminum Hydroxide 30 ML Q4H PRN PO INDIGESTION Amlodipine Besylate 10 MG DAILY PO Atorvastatin Calcium 10 MG HS PO Duloxetine HCl 60 MG DAILY PO Heparin Sodium 300 UNIT Q12H.1 IV Heparin Sodium 300 UNIT FLUSH.PICC PRN IV KEEP PICC LINE PATENT Hydralazine HCl 12.5 MG BID PO Hydroxyzine HCl 25 MG Q8H PRN PO ITCHING/ITCHINESS Insulin Glargine 40 U BID SC Insulin Human Regular MODERATE DOSE - Sliding Scale < 60 MG/DL * Follow Hypoglycemic Protocol 61 - 150 No COVERAGE 151 - 180 2 UNITS 181 - 240 4 UNITS 241 - 300 6 UNITS 301 - 350 8 UNITS 351 - 400 10 UNITS > 400 Serum Glucose, Notify Provider [facility] Losartan Potassium 100 MG DAILY PO Metformin HCl 1,000 MG BID PO Nutritional Formula (Lactose Free) 1 CAP BID PO Nystatin 1 DOSE BID TP Oxycodone/Acetaminophen 1 TAB Q8H PRN PO PAIN SEVERE (-04/07) Sodium Chloride 10 ML Q12H.1 IV Sodium Chloride 10 ML FLUSH.PICC PRN IV KEEP PICC LINE PATENT Triamcinolone Acetonide 1 DOSE BID PRN TP RASH Vital Signs 03/03 03/04 1907 0704 Temp 98.7 98.2 Pulse 81 82 Resp 18 18 B/P 125/73 121/69 B/P Mean Pulse Ox 98 99 O2 Delivery O2 Flow Rate FiO2 EENT PERRL/EOMI, normal ENT inspectionNeck normal inspection, non-tenderRespiratory chest non- tender, lungs clear, normal breath sounds, no respiratory distressCardiovascular regular rate/rhythm, no edema, no gallop, no JVD, no murmurGastrointestinal normal bowel sounds, non tender, soft, no organomegalyPelvic normal external examBack normal inspection, no CVA tenderness, no vertebral tendernessExtremities non-tender, normal range of motion, normal inspection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 William Roblero thru 03/09 Tentative plan for discharge on 03/10 Will require O/P derm f/u for rash Labs ordered for 03/08 Problem List 1. Osteomyelitis of right foot A&Pc/w Oxacillin through Apr 08outpatient f/u with Dr. Huston after d/c- pt was seen by him on 02/28, but thetreatments that were recommended are not available here- will c/w iodoform, silver AG, abd pad, natacha 2. Right foot pain A&Pcont w/ percocet PRN 3. Phantom limb pain A&Pcont percocet, cymbalta may also be having some efficacy in treating the phantompain 4. Elevated erythrocyte sedimentation rate A&Ptrend 5. Elevated C-reactive protein (CRP) A&Ptrend 6. History of transmetatarsal amputation of foot A&Pcont wound care as outlined 7. Rash and nonspecific skin eruption A&PContinue topical steroids as well as when necessary Atarax. Patient will follow-up with dermatology as an outpatient 8. Normocytic anemia A&Pstable 9. Chronic kidney disease, stage II (mild) A&Pstable 10. Hypomagnesemia A&Pcont mag oxide 11. Moderate protein-calorie malnutrition A&Pcont protein supplementation with liquacel 12. Diabetes mellitus type 2 with complications A&Pwell-controlled on current regimen- metformin 1 gm BID, lantus 40 u BID, slidingscale is ordered however pt is not requiring 13. Hypertension A&PContinue ARB, calcium channel zhen as well as hydralazine 14. Hyperlipidemia A&Pc/w statin 15. Depression A&Pc/w cymbalta 16. Anxiety A&Pcont cymbalta 17. Bipolar disorder A&Pc/w cymbalta 18. PTSD (post- traumatic stress disorder) A&Pc/w cymbaltasupportive care 19. Obesity A&Poutpatient counseling and f/u VTE ProphylaxisVTE Prophylaxis: will start low dose BID heparin as patient is mostly confined to w/c Name Value Range Interpretation Code Description Data Shelby rce(s) Supporting Document(s) ID Date Data Source [id number] 03/03/2020 06:51:00 AM EDT [facility] Name Value Range Interpretation Code Description Data [facility] rce(s) Supporting Document(s) MAGNESIUM 1.7 mg/dL 1.8-2.4 [facility] ID Date Data Source [id number] 02/28/2020 03:40:00 PM EDT [facility] Progress Note GeneralEncounter:Patient seen and examined with nursing staff. Chart reviewed. All questions were answered. The patient was discussed on multidisciplinary rounds as well. SubjectiveGeneral Condition:Overall the patient is feeling pretty well. She is not really ambulating very much with a walker, as she does not have her shoe for her left lower extremity. She is able to self transfer and then uses a wheelchair for ambulation. The patient is able to perform her own ADLs including taking care of her wound. Shehad a virtual visit with ID yesterday. No new recommendations were offered. She is to complete her antibiotics on the . She will follow up with ID on the . The patient is seen her wound surgeon (Dr. Huston) tomorrow morning.She does continue to have pain in her lower extremities. She rarely has any discomfort from the wound or infection, that she is aware of. Her pain is the phantom limb pain in the range is 3 7/10, bilaterally. Patient remains afebrileand her vital signs are stable, except for occasional hypertensive readings. She denies fever or chills. She denies nausea, vomiting or diarrhea. She had anormal bowel movement, earlier today, without melena or blood. Her appetite is excellent. She has not felt lightheaded or dizzy and denies headaches. She is breathing at baseline and has not been short of breath. She denies any wheezingor cough. She denies chest pain or palpitations. The patient denies abdominal pain and has not had heartburn, indigestion, dysphagia or odynophagia. She is voiding normally for her and denies any new complaints. He denies any new musculoskeletal complaints, except for as noted above. She denies any new weakness, numbness or tingling, just her chronic numbness and tingling in her feet and this is unchanged. The patient's fraction improving and she denies anynew skin rashes. 10 point review systems is negative except for what is noted above. ObjectiveNote:Current MedicationsAcetaminophen 650 MG Q4H PRN PO pain, fever and/or headache Aluminum Hydroxide 30 ML Q4H PRN PO INDIGESTION Amlodipine Besylate 10 MG DAILY PO Atorvastatin Calcium 10 MG HS PO Duloxetine HCl 60 MG DAILY PO Heparin Sodium 300 UNIT Q12H.1 IV Heparin Sodium 300 UNIT FLUSH.PICC PRN IV KEEP PICC LINE PATENT Hydralazine HCl 12.5 MG BID PO Hydroxyzine HCl 25 MG Q8H PRN PO ITCHING/ITCHINESS Insulin Glargine 40 U BID SC Insulin Human Regular MODERATE DOSE - Sliding Scale < 60 MG/DL * Follow Hypoglycemic Protocol 61 - 150 No COVERAGE 151 - 180 2 UNITS 181 - 240 4 UNITS 241 - 300 6 UNITS 301 - 350 8 UNITS 351 - 400 10 UNITS > 400 Serum Glucose, Notify Provider [facility] Losartan Potassium 100 MG DAILY PO Magnesium Oxide 400 MG BID PO (UNV) Metformin HCl 1,000 MG BID PO Nutritional Formula (Lactose Free) 1 CAP BID PO Nystatin 1 DOSE BID TP Oxycodone/Acetaminophen 1 TAB Q6H PRN PO PAIN Sodium Chloride 10 ML Q12H.1 IV Sodium Chlo ride 10 ML FLUSH.PICC PRN IV KEEP PICC LINE PATENT Triamcinolone Acetonide 1 DOSE BID PRN TP RASH Vital Signs 02/26 0745 Temp 97.9 98.5 Pulse 81 84 Resp 20 18 B/P 141/74 118/78 B/P Mean Pulse Ox 99 97 O2 Delivery O2 Flow Rate FiO2 Temp; 98.5, Pulse; 84, Resp: 18, B/P: 118/78 SaO2: 97, O2 Status: General: Morbidly obese white female who is alert, oriented, cooperative and in no distress.HEENT: Normocephalic, atraumatic, pupils reactive, sclerae anicteric, pink and moist oral mucosa.Neck: Moves in all planes without difficulty. It is supple and nontender. There are no masses or lymphadenopathy. I did not note any JVD or HJR.Lungs: Patient has good air exchange bilaterally. Her lung olsen are clear. There was no accessory muscle movement or evidence of respiratory distress.Chest wall: NontenderHeart: Regular, rate and rhythm, normal S1 and S2, 2/6 systolic murmur throughout the precordiumAbdomen: Obese, soft, nontender, no masses, bowel sounds are positive in all 4 quadrants.Extremities: The patient does move all 4 extremities at the bedside. There is no edema or calf tenderness. Peripheral pulses are palpable. The patient has bilateral transmetatarsal amputations. Wound in the right foot appears about the same. Deepest point is 2.4 cm. It is no longer foul-smelling. The area ofirritation on the dorsal aspect of the foot has healed nicely. There was no warmth or erythema around the wound. There was no lymphangitis. Size of the wound is unchanged.Neurologic: Patient remains alert and oriented. Normal speech. Motor and sensory appear grossly intactSkin: Warm and dryBack: There is no vertebral or CVA tenderness. There is no PVMS.Lymphatic: No palpable lymphadenopathyOther:Laboratory Tests 02/27 02/27 0625 0625 Chemistry Sodium (136 - 145 mmol/L) 140 Potassium (3.5 - 5.1 mmol/L) 4.3 Chloride (98 - 107 mmol/L) 105 Carbon Dioxide (21 - 32 mmol/L) 28 Anion Gap (5 - 12 mmol/L) 7.0 BUN (7 - 18 mg/dL) 24 H Cr eatinine (0.6 - 1.0 mg/dL) 0.9 Estimated GFR (MDRD) (mL/min) 65 Glucose (74 - 106 mg/dL) 95 Calcium (8.5 - 10.1 mg/dL) 9.0 Magnesium (1.8 - 2.4 mg/dL) 1.5 L Total Bilirubin (0.2 - 1.0 mg/dL) 0.2 AST (15 - 37 U/L) 13 L ALT (12 - 78 U/L) 20 Alkaline Phosphatase (46 - 116 U/L) 95 C- Reactive Protein (0.0 - 3.0 mg/L) 4.9 H Total Protein (6.4 - 8.2 g/dl) 6.3 L Albumin (3.4 - 5.0 gm/dL) 2.7 *L Hematology WBC (4.0 - 10.0 K/mm3) 7.9 RBC (4.00 - 5.50 M/mm3) 3.91 L Hgb (12.0 - 16.0 gm/dL) 9.9 L Hct (36.0 - 48.8 %) 31.4 L MCV (80 - 96 fl) 80.3 MCH (27.0 - 31.0 pg) 25.3 L MCHC Differential (32.0 - 36.0 g/dl) 31.5 L RDW (10.0 - 14.5 %) 16.2 H Plt Count (172 - 450 K/mm3) 335 MPV (9.0 - 13.0 fl) 9.5 Gran % (Auto) (50 - 80.0 %) 41.7 L Gran # (2.0 - 8.00 K/mm3) 3.3 Immature Gran % (0.0 - 0.2 %) 0.4 H Lymphocytes % (25.0 - 50.0 %) 40.9 Monocytes % (2.0 - 10.0 %) 9.3 Eosinophils % (0 - 5.0 %) 6.2 H Basophils % (0.0 - 2.0 %) 1.5 Immature Gran # (0.0 - 0.2 K/mm3) 0.0 Lymphocytes # (1.0 - 5.0 K/mm3) 3.2 Monocytes # (0.10 - 1.20 K/mm3) 0.7 Eosinophils # (0.0 - 0.5 K/mm3) 0.5 Basophils # (0.0 - 0.2 K/mm3) 0.1 ESR (0 - 30 mm/hr) 50 H Assessment/PlanAllergiesCoded Allergies:cefazolin (02/08/20)fluoxetine (02/08/20)pseudoephedrine (02/08/20)trazodone (02/08/20) Additional NotesIn 1 week: Repeat CBC, CMP, ESR and CRP.Continue probiotic, while on antibiotics to protect her GI and FITTER TYPE BAR AND SEGMENT jace.Patient does have available nystatin for her skin folds.Continue as needed Tylenol and Maalox Disposition: Patient will complete her antibiotics on the and hopeful discharge home on the . Patient has ID follow-up scheduled for the . Patient will need follow-up with PCP within a week or so of discharge. She will also need dermatology follow-up as well as an outpatient.Problem List 1. Osteomyelitis of right foot A&PPatient will continue oxacillin through the . Wound care follow-up with tomorrow and await his recommendations. ID follow-up is scheduled for the . Continue care for the wound with iodoform, silver AG, abdominal pad and wrapped with Natacha. 2. Right foot pain A&PContinue when necessary analgesia for now 3. Phantom limb pain A&PAgain, continue when necessary analgesia. Other options if symptoms exacerbate include gabapentin 4. Elevated erythrocyte sedimentation rate A&PThis essentially has not changed. We will continue to follow and trend 5. Elevated C-reactive protein (CRP) A&PThis continues to improve. Follow-up level again in one week and continue to trend 6. History of transmetatarsal amputation of foot A&PContinue wound care as documented above. Await follow-up with wound surgeon (Dr. Huston), tomorrow 7. Rash and nonspecific skin eruption A&PThis is improving. Continue topical steroids as well as when necessary Atarax. Patient will follow-up with dermatology as an outpatient 8. Normocytic anemia A&PThis essentially has not changed. Continue to trend H&H 9. Prerenal azotemia A&PContinue to encourage by mouth fluids and follow up renal function 10. Chronic kidney disease, stage II (mild) A&PContinue to encourage by mouth fluids and follow up renal function 11. Hypomagnesemia A&PSupplement the patient with oral magnesium and follow-up level on the fifth 12. Moderate protein-calorie malnutrition A&PContinue protein supplementation and encourage by mouth intake 13. Diabetes mellitus type 2 with complications A&PFingersticks with sliding scale coverage. Continue Lantus as well as metformin 14. Hypertension A&PContinue ARB, calcium channel zhen as well as hydralazine 15. Hyperlipidemia A&PContinue statin 16. Depression A&PMonitor patient's symptoms and provide supportive measures. Continue Cymbalta. 17. Anxiety A&PMonitor patient's symptoms and provide supportive measures. Continue Cymbalta. 18. Bipolar disor nely A&PMonitor patient's symptoms and provide supportive measures. Continue Cymbalta. 19. PTSD (post-traumatic stress disorder) A&PMonitor patient's symptoms and provide supportive measures. Continue Cymbalta. 20. Obesity A&PWork with PCP as an outpatient VTE ProphylaxisVTE Prophylaxis: She continues to be ambulatory . Name Value Range Interpretation Code Description Data Shelby rce(s) Supporting Document(s) ID Date Data Source [id number] 02/28/2020 02:29:00 PM EDT [facility] TSYSORDER May use blood from this AM Name Value Range Interpretation Code Description Data Shelby rce(s) Supporting Document(s) C REACTIVE PROTEIN 4.9 mg/L 0.0-3.0 H [facility] ID Date Data Source [id number] 02/28/2020 06:37:00 AM EDT [facility] Name Value Range Interpretation Code Description Data Shelby rce(s) Supporting Document(s) WHITE BLOOD COUNT 7.9 K/mm3 4.0-10.0 [facility] RED [facility]LOOD COUNT 3.91 M/mm3 4.00-5.50 L [facility] HEMOGLOBIN 9.9 gm/dL 12.0-16.0 L [facility] HEMATOCRIT 31.4 % 36.0-48.8 L [facility] MEAN CELL VOLUME 80.3 fl 80-96 [facility] MEAN CORPUSCULAR HEMOGLOBIN 25.3 pg 27.0-31.0 L [facility] MEAN CORPUSCULAR HGB CONC 31.5 g/dl 32.0-36.0 L [facility] RED CELL DISTRIBUTION WIDTH 16.2 % 10.0-14.5 H [facility] PLATELET COUNT 335 K/mm3 172-450 [facility] MEAN PLATELET VOLUME 9.5 fl 9.0-13.0 [facility] GRAN % 41.7 % 50-80.0 L [facility] IG% 0.4 % 0.0-0.2 H [facility] LYMPH % 40.9 % 25.0-50.0 [facility] MONO % 9.3 % 2.0-10.0 [facility] EOS % 6.2 % 0-5.0 H [facility] BASO % 1.5 % 0.0-2.0 [facility] GRAN # 3.3 K/mm3 2.0-8.00 [facility] IG# 0.0 K/mm3 0.0-0.2 [facility] LYMPH # 3.2 K/mm3 1.0-5.0 [facility] MONO # 0.7 K/mm3 0.10-1.20 [facility] EOS # 0.5 K/mm3 0.0-0.5 [facility] BASO # 0.1 K/mm3 0.0-0.2 [facility] ID Date Data Source [id number] 02/28/2020 07:44:00 AM EDT [facility] Name Value Range Interpretation Code Description Data Shelby rce(s) Supporting Document(s) ERYTHROCYTE SEDIMENTATION RATE 50 mm/hr 0-30 H [facility] ID Date Data Source [id number] 02/28/2020 07:21:00 AM EDT [facility] Name Value Range Interpretation Code Description Data Shelby rce(s) Supporting Document(s) MAGNESIUM 1.5 mg/dL 1.8-2.4 [facility] ID Date Data Source [id number] 02/28/2020 07:21:00 AM [facility] Name Value Range Interpretation Code Description Data Shelby rce(s) Supporting Document(s) GLUCOSE 95 mg/dL 74-106 [facility] BLOOD UREA NITROGEN 24 mg/dL 7-18 H [facility] CREATININE 0.9 mg/dL 0.6-1.0 [facility] SODIUM 140 mmol/L 136-145 [facility] POTASSIUM 4.3 mmol/L 3.5-5.1 [facility] CHLORIDE 105 mmol/L 98-107 [facility] CO2 28 mmol/L 21-32 [facility] CALCIUM 9.0 mg/dL 8.5-10.1 [facility] ANION GAP 7.0 mmol/L 5-12 [facility] GLOMERULAR FILTRATION RATE 65 mL/min [facility] GFR IS CALCULATED IN mL/min/1.73m2 MELLO L FUNCTION: >90MILDLY DECREASED: 60-89MILDY TO MODERATELY DECREASED: 45-59 MODERATELY TO SEVERELY DECREASED: 30-44SEVERELY DECREASED: 15-29RENAL FAILURE: <15 AST 13 U/L 15-37 [facility] ALT 20 U/L 12-78 [facility] ALKALINE PHOSPHATASE 95 U/L 46-116 [facility] pital TOTAL BILIRUBIN 0.2 mg/dL 0.2-1.0 [facility] TOTAL PROTEIN 6.3 g/dl 6.4-8.2 [facility] ALBUMIN 2.7 gm/dL 3.4-5.0 *[facility] ID Date Data Source [id number] 02/23/2020 07:38:00 AM [facility] Name Value Range Interpretation Code Description Data Shelby rce(s) Supporting Document(s) ERYTHROCYTE SEDIMENTATION RATE 48 mm/hr 0-30 H [facility] ID Date Data Source [id number] 02/23/2020 06:37:00 AM [facility] Name Value Range Interpretation Code Description Data Shelby rce(s) Supporting Document(s) WHITE BLOOD COUNT 9.1 K/mm3 4.0-10.0 [facility] RED BLOOD COUNT 3.88 M/mm3 4.00-5.50 L [facility] l HEMOGLOBIN 10.3 gm/dL 12.0-16.0 L [facility] HEMATOCRIT 31.4 % 36.0-48.8 L [facility] MEAN CELL VOLUME 80.9 fl 80-96 [facility] MEAN CORPUSCULAR HEMOGLOBIN 26.5 pg 27.0-31.0 L [facility] MEAN CORPUSCULAR HGB CONC 32.8 g/dl 32.0-36.0 [facility] RED CELL DISTRIBUTION WIDTH 16.4 % 10.0-14.5 H [facility] PLATELET COUNT 329 K/mm3 172-450 [facility] MEAN PLATELET VOLUME 9.6 fl 9.0-13.0 [facility] pital GRAN % 45.4 % 50-80.0 L [facility] IG% 0.2 % 0.0-0.2 [facility] LYMPH % 40.7 % 25.0-50.0 [facility] MONO % 8.4 % 2.0-10.0 [facility] EOS % 4.3 % 0-5.0 [facility] BASO % 1.0 % 0.0-2.0 [facility] GRAN # 4.1 K/mm3 2.0-8.00 [facility] IG# 0.0 K/mm3 0.0-0.2 [facility] LYMPH # 3.7 K/mm3 1.0-5.0 [facility] MONO # 0.8 K/mm3 0.10-1.20 [facility] EOS # 0.4 K/mm3 0.0-0.5 [facility] BASO # 0.1 K/mm3 0.0-0.2 [facility] ID Date Data Source [id number] 02/23/2020 07:16:00 AM EDT [facility] Name Value Range Interpretation Code Description Data Shelby rce(s) Supporting Document(s) GLUCOSE 62 mg/dL 74-106 L [facility] BLOOD UREA NITROGEN 23 mg/dL 7-18 H [facility] CREATININE 0.7 mg/dL 0.6-1.0 [facility] SODIUM 139 mmol/L 136-145 [facility] POTASSIUM 4.6 mmol/L 3.5-5.1 [facility] CHLORIDE 104 mmol/L 98-107 [facility] CO2 27 mmol/L 21-32 [facility] CALCIUM 9.2 mg/dL 8.5-10.1 [facility] ANION GAP 8.0 mmol/L 5-12 [facility] GLOMERULAR FILTRATION RATE 88 mL/min [facility] GFR IS CALCULATED IN mL/min/1.73m2 MELLO L FUNCTION: >90MILDLY DECREASED: 60-89MILDY TO MODERATELY DECREASED: 45-59 MODERATELY TO SEVERELY DECREASED: 30-44SEVERELY DECREASED: 15-29RENAL FAILURE: <15 AST 12 U/L 15-37 [facility] ALT 20 U/L 12-78 [facility] ALKALINE PHOSPHATASE 98 U/L 46-116 [facility] pital TOTAL BILIRUBIN 0.2 mg/dL 0.2-1.0 [facility] TOTAL PROTEIN 6.3 g/dl 6.4-8.2 [facility] ALBUMIN 2.7 gm/dL 3.4-5.0 *L [facility] ID Date Data Source [id number] 02/23/2020 07:16:00 AM EDT [facility] Name Value Range Interpretation Code Description Data Shelby rce(s) Supporting Document(s) MAGNESIUM 1.6 mg/dL 1.8-2.4 [facility] ID Date Data Source [id number] 02/23/2020 07:16:00 AM EDT [facility] l Name Value Range Interpretation Code Description Data Shelby rce(s) Supporting Document(s) C REACTIVE PROTEIN 7.0 mg/L 0.0-3.0 H [facility] jack ID Date Data Source [id number] 02/21/2020 01:53:00 PM EDT [facility] Progress Note GeneralEncounter:Chart re viewed. Patient interviewed and examined. Labs, medications and orders viewed by me. Patient also seen during team rounds. Nursing staff present during my evaluation as well. All questions were answered. SubjectiveGeneral Condition:The patient does feel like she is slowly improving. Her overall pain is much more tolerable with the range of 2 5/10, in her right foot. She does chronically deal with phantom limb pain in both feet and that has not changed. For the most part that is tolerable. Staff is changing her wound dressing daily. The patient's vital signs have remained stable and she is afebrile. Shehas not felt feverish but denies chills. She denies any nausea or vomiting or diarrhea has resolved. Her appetite is good. She denies headache and has not felt lightheaded or dizzy. She has no new EENT complaints. The patient denies shortness of breath, wheezing or cough. She has not had palpitations and denieschest pain. She denies abdominal pain and has no GI complaints of. She continues to urinate without any issues and has no new genitourinary voids. Shehas no other specific musculoskeletal complaints except for as noted above. Thepatient is ambulating with a walker and remains nonweightbearing with her right lower extremity. She does not require any further physical therapy. The patient has chronic numbness and tingling in both her feet, from her diabetic neuropathy and this has not changed. She has no new numbness or tingling. The patient was treated for scabies this past weekend, but continues to have itchy skin. It is diffuse. Full review of systems is as documented above, otherwise is unremarkable. ObjectiveNote:Current MedicationsAcetaminophen 650 MG Q4H PRN PO pain, fever and/or headache Aluminum Hydroxide 30 ML Q4H PRN PO INDIGESTION Amlodipine Besylate 10 MG DAILY PO Atorvastatin Calcium 10 MG HS PO Duloxetine HCl 60 MG DAILY PO Heparin Sodium 300 UNIT Q12H.1 IV Heparin Sodium 300 UNIT FLUSH.PICC PRN IV KEEP PICC LINE PATENT Hydralazine HCl 12.5 MG BID PO Hydroxyzine HCl 25 MG Q8H PRN PO ITCHING/ITCHINESS Insulin Glargine 40 U BID SC Insulin Human Regular MODERATE DOSE - Sliding Scale < 60 MG/DL * Follow Hypoglycemic Protocol 61 - 150 No COVERAGE 151 - 180 2 UNITS 181 - 240 4 UNITS 241 - 300 6 UNITS 301 - 350 8 UNITS 351 - 400 10 UNITS > 400 Serum Glucose, Notify Provider ACH[facility] Losartan Potassium 100 MG DAILY PO Magnesium Oxide 400 MG BID PO (UNV) Metformin HCl 1,000 MG BID PO Nutritional Formula (Lactose Free) 1 CAP BID PO Nystatin 1 DOSE BID TP Oxycodone/Acetaminophen 1 TAB Q6H PRN PO PAIN Sodium Chloride 10 ML Q12H.1 IV Sodium Chloride 10 ML FLUSH.PICC PRN IV KEEP PICC LINE PATENT Triamcinolone Acetonide 1 DOSE BID PRN TP RASH Vital Signs 02/19 0759 Temp 98.2 97.6 Pulse 79 83 Resp 20 18 B/P 131/87 137/75 B/P Mean Pulse Ox 97 98 O2 Delivery O2 Flow Rate FiO2 Temp; 97.6, Pulse; 83, Resp: 18, B/P: 137/75 SaO2: 98, O2 Status: General: Pleasant white female who remains alert and oriented. She is cooperative and in no apparent distress.Head: AtraumaticEENT normal ENT inspection, pupils reactive, sclerae anictericNeck normal inspection, non- tender, supple, full range of motion, no JVDRespiratory chest non-tender, lungs clear, normal breath sounds, no respiratory distress, no accessory muscle useCardiovascular regular rate/rhythm, no edema, no JVD, systolic murmur (2/6 throughout precordium)Gastrointestinal normal bowel sounds, non tender, soft, no organomegaly, no pulsatile mass, obeseBack normal inspection, no CVA tenderness, no vertebral tendernessExtremities no calf tenderness, no pedal edema, palpable peripheral pulses. Patient has bilateral transmetatarsal amputations., the right foot wound is a little macerated around the edges. Probe of wound deepest point was 2.4 cm. The wound is somewhat foul-smelling. There is some irritation of the skin on the dorsal foot from tape.the wound was not warm and there was no significant erythema. 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, normal mood/affect, no motor/sensory deficits, oriented x 3Skin normal color, warm/dry, subtle patchy erythematous rash on extremities, abdomen and backLymphatic no adenopathyOther:Laboratory Tests All Test Result Date Time Chemistry Sodium (136 - 145 mmol/L) 138 02/15 0625 Potassium (3.5 - 5.1 mmol/L) 4.4 02/15 0625 Chloride (98 - 107 mmol/L) 103 02/15 0625 Carbon Dioxide (21 - 32 mmol/L) 26 02/15 0625 Anion Gap (5 - 12 mmol/L) 9.0 02/15 0625 BUN (7 - 18 mg/dL) 24 H 02/15 0625 Creatinine (0.6 - 1.0 mg/dL) 0.8 02/15 0625 Estimated GFR (MDRD) (mL/min) 75 02/15 0625 Glucose (74 - 106 mg/dL) 65 L 02/15 06 Specific Rothschild (1.001 - 1.035) >1.030 02/08 1900 Calcium (8.5 - 10.1 mg/dL) 9.4 02/15 0625 Magnesium (1.8 - 2.4 mg/dL) 1.6 L 02/08 0625 Total Bilirubin (0.2 - 1.0 mg/dL) 0.2 02/15 0625 AST (15 - 37 U/L) 15 02/15 0625 ALT (12 - 78 U/L) 22 02/15 0625 Alkaline Phosphatase (46 - 116 U/L) 107 02/15 0625 C- Reactive Protein (0.0 - 3.0 mg/L) 9.0 H 02/15 0625 Total Protein (6.4 - 8.2 g/dl) 6.5 02/15 0625 Albumin (3.4 - 5.0 gm/dL) 2.7 *L 02/15 625 Hematology WBC (4.0 - 10.0 K/mm3) 9.2 02/15 06 RBC (4.00 - 5.50 M/mm3) 3.93 L 02/15 0625 Hgb (12.0 - 16.0 gm/dL) 10.0 L 02/15 0625 Hct (36.0 - 48.8 %) 32.1 L 02/15 0625 MCV (80 - 96 fl) 81.7 02/15 0625 MCH (27.0 - 31.0 pg) 25.4 L 02/15 0625 MCHC Differential (32.0 - 36.0 g/dl) 31.2 L 02/15 0625 RDW (10.0 - 14.5 %) 16.4 H 02/15 06 Plt Count (172 - 450 K/mm3) 390 02/15 0625 MPV (9.0 - 13.0 fl) 9.9 02/15 0625 Gran % (Auto) (50 - 80.0 %) 50.5 02/15 0625 Gran # (2.0 - 8.00 K/mm3) 4.7 02/15 0625 Immature Gran % (0.0 - 0.2 %) 0.3 H 02/15 0625 Lymphocytes % (25.0 - 50.0 %) 38.4 02/15 0625 Monocytes % (2.0 - 10.0 %) 6.8 02/15 0625 Eosinophils % (0 - 5.0 %) 2.7 02/15 625 Basophils % (0.0 - 2.0 %) 1.3 02/15 625 Immature Gran # (0.0 - 0.2 K/mm3) 0.0 02/15 625 Lymphocytes # (1.0 - 5.0 K/mm3) 3.5 02/15 625 Monocytes # (0.10 - 1.20 K/mm3) 0.6 02/15 625 Eosinophils # (0.0 - 0.5 K/mm3) 0.3 02/15 625 Basophils # (0.0 - 0.2 K/mm3) 0.1 02/15 625 ESR (0 - 30 mm/hr) 50 H 02/15 625 Other Body Source Stl C. cayetanensis PCR (Not Detected) Not Detected 02/07 1946 Stool Rotavirus A PCR (Not Detected) Not Detected 02/07 1946 Stl Adenov F 40/41 PCR (Not Detected) Not Detected 02/07 1946 Stool Astrovirus (PCR) (Not Detected) Not Detected 02/07 1946 Stool Campylobacter PCR (Not Detected) Not Detected 02/07 1946 Stool Cryptosporidium PCR (Not Detected) Not Detected 02/07 1946 Stool E coli O157 PCR (Not Detected) Not Applicable 02/07 1946 Stl Enterotoxigenic E PCR (Not Detected) Not Detected 02/07 1946 Stool EPEC (PCR) (Not Detected) Not Detected 02/07 1946 Stl E. histolytica PCR (Not Detected) Not Detected 02/07 1946 Stool Giardia Lamblia PCR (Not Detected) Not Detected 02/07 1946 Stl Shiga-like Tx 1 PCR (Not Detected) Not Detected 02/07 1946 Stl P. shigelloides PCR (Not Detected) Not Detected 02/07 1946 Stl Shigella/EIEC PCR (Not Detected) Not Detected 02/[address] Y.enterocolitica PCR (Not Detected) Not Detected 02/07 1946 Stool Vibrio (PCR) (Not Detected) Not Detected 02/07 1946 Stl Vibrio cholera PCR (Not Detected) Not Detected 02/07 1946 Stl Enteroaggr Ecoli PCR (Not Detected) Not Detected 02/07 1946 Stl Norovirus GI/GII PCR (Not Detected) Not Detected 02/07 1946 Serology C. difficile (PCR) (Not Detected) Not Detected 02/07 1946 C. difficile Toxin A&B (NEGATIVE) NEGATIVE 02/07 1946 Salmonella (PCR) (Not Detected) Not Detected 02/07 1946 Staph saprophyticus PCR (Not Detected) Not Detected 02/07 1946 Urines Urine Color YELLOW 02/08 1900 Urine Appearance SLIGHTY CLOUDY 02/08 1900 Urine pH (5.0 - 9.0) 5.5 02/08 1900 Urine Protein (NEGATIVE mg/dL) 3+(300) H 02/08 1900 Urine Ketones (NEGATIVE mg/dL) NEGATIVE 02/08 1900 Urine Blood (NEGATIVE) 1+(SMALL) H 02/08 1900 Urine Nitrite (NEGATIVE) NEGATIVE 02/08 1900 Urine Bilirubin (NEGATIVE) NEGATIVE 02/08 1900 Urine Urobilinogen (0 - 1 mg/dL) NORMAL(0.2-1) 02/08 1900 Ur Leukocyte Esterase (NEGATIVE) TRACE 02/08 1900 Urine Microscopic RBC (0 - 3 /hpf) 5-10 H 02/08 1900 Urine Microscopic WBC (0 - 5 /hpf) 3-5 02/08 1900 Ur Epithelial Cells (0 /hpf) 2+ 02/08 1900 Urine Bacteria (NONE SEEN) 1+ 02/08 1900 Urine Yeast PRESENT 02/08 1900 Urine Glucose (NEGATIVE mg/dL) 500 H 02/08 1900 Assessment/PlanAllergiesCoded Allergies:cefazolin (02/08/20)fluoxetine (02/08/20)pseudoephedrine (02/08/20)trazodone (02/08/20) Additional NotesAM labs 02/23/20: CBC, CMP, CRP, ESR and magnesium levelContinue probiotic, while on antibioticsContinue nystatin for skin foldsPatient has available Maalox and TylenolProblem List 1. Osteomyelitis of right foot A&PThe patient has an open wound and we are continuing local wound care. He is receiving iodoform with silver AG into the wound. The wound is then being covered with ABD pad. Wrap with Natacha or similar. Staff has been advised to not put tape on the skin. The patient will need to complete a six-week course of antibiotics (oxacillin) per ID (antibiotics through 03/09/20). Patient does need follow-up with ID 2. Right foot pain A&PMonitor response to treatment. Provide patient with when necessary analgesia 3. Phantom limb pain A&PThis has not been a major problem patient. It is currently tolerable. Considergabapentin if exacerbates. 4. Leukocytosis A&PThis has resolved 5. Elevated erythrocyte sedimentation rate A&PThis has not changed. Continue to trend 6. Elevated C-reactive protein (CRP) A&PThis is improving. Also continue trend 7. History of transmetatarsal amputation of foot A&PThe patient has a history of bilateral transmetatarsal amputations. She is now having complications with the wound on the right. See above 8. Rash and nonspecific skin eruption A&PThis rash is of undetermined etiology. The patient does have pruritus. She wasseen by dermatology and they felt it was contact dermatitis. She was just treated for scabies, this past weekend. It really has not improved. We will change the patient to hydroxyzine to see if she gets better relief of her itching and monitor. Question if this is coming from her antibiotic. 9. Normocytic anemia A&PThis is stable. Continue to trend H&H 10. Prerenal azotemia A&PThis is improving. Encourage by mouth fluids and trend renal function 11. Chronic kidney disease, stage II (mild) A&PThis remains stable. Continue to trend renal function 12. Hypomagnesemia A&PPatient will receive supplemental magnesium and will follow-up level on the 13. Moderate protein-calorie malnutrition A&PEncourage by mouth intake and continue protein supplement (LIQUACEL) 14. Diabetes mellitus type 2 with complications A&PContinue to follow blood sugars. Provide sliding scale insulin coverage as needed. Continue Lantus and metformin 15. Hypertension A&PBlood pressure has been well-controlled. Continue losartan, amlodipine and hydralazine 16. Hyperlipidemia A&PContinue atorvastatin 17. Diarrhea A&PThis has resolved, monitor for recurrence 18. Depression A&PContinue duloxetine and monitor for exacerbating symptoms 19. Anxiety A&PContinue duloxetine and monitor for exacerbating symptoms 20. Bipolar disorder A&PContinue duloxetine and monitor for exacerbating symptoms 21. PTSD (post-traumatic stress disorder) A&PContinue duloxetine and monitor for exacerbating symptoms 22. Obesity A&PFollow-up with PCP as an outpatient VTE ProphylaxisVTE Prophylaxis: The patient is ambulatory and does not require DVT prophylaxis. Name Value Range Interpretation Code Description Data [facility](s) Supporting Document(s) ID Date Data Source [id number] 02/18/2020 06:16:00 PM [facility] Progress Note GeneralEncounter:Chart re viewed. Patient interviewed and examined. Labs, medications and orders viewed by me. SubjectiveGeneral Condition:Pt seen and examined today for continued pruritc skin rash on extremities as well as abdomen. was seen by dermatology on 02/06/20 while at [facility] and diagnosed with dermatitis. She has been using steroid cream with no improvement . She contiues to itch and feels like it is spreading. No fevers, chills CP, SOBor other associated symptoms ObjectiveNote:Temp; 97.8, Pulse; 88, Resp: 18, B/P: 151/88 SaO2: 99, O2 Status: Skin rash, patchy rash on extremities with excoriations. No erythema or signs ofinfection. Abdominal exam defered. Assessment/PlanAllergiesCoded Allergies:cefazolin (02/08/20)fluoxetine (02/08/20)pseudoephedrine (02/08/20)trazodone (02/08/20) Problem List 1. Rash and nonspecific skin eruption A&PSuspect scabies . No boroughing between fingers however pattern and refractory treatment seem to suggest scabies. will prescribe permethrine. Will need re- evaluation in several days to see if there is improvement. Can continue steroid cream as well Name Value Range Interpretation Code Description Data [facility](s) Supporting Document(s) ID Date Data Source [id number] 02/17/2020 01:18:00 AM EDT [facility] Progress Note GeneralEncounter:Chart re viewed. Patient interviewed and examined. Labs, medications and orders viewed by me. SubjectiveGeneral Condition:54 year old female here for wound care and iv antibiotic in an attempt to save the reminder of her right foot; she had transmetatarsal amputation 3 years ago and since then was in various modalities of treatments for a non healing wound.She was recently referred to [facility] for evaluation and treatment of osteomyelitis. 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 ID specialist was consulted and the patient was recommended to have a trial of IV antibiotics.Patient was transferred here for further treatment with daily dressing changer wnd IV antibiotics.Patient is currently on Oxacillin.Her wound is rather extensive and involves the entire transmetatarsal postsurgical area that is exposed and has folds of hypergranulation tissue and covered with greenish thick exudate.There is significant swelling and reddness of the dorsum of the remaining part of the foot.Patient was asked to elevate her foot while sitting.She denies any chest pain or chest pressure. She denies shortness of breath. Shedenies any urinary symptoms.She does admit to loose stools but no abdominal pain. Florencio is meeting her outside because of social and confidential reasons.Her infection is extensive and she is aware of limited options.For now we will try out best, continue daily dressing changes.elevation, continue oxacillin and continue to follow with her specialty team. ObjectiveNote:Temp; 98.9, Pulse; 83, Resp: 16, B/P: 133/70 SaO2: 98, O2 Status: EENT PERRL/EOMI, normal ENT inspectionNeck normal inspection, non-tender, supple, full range of motionRespiratory chest non-tender, lungs clear, normal breath sounds, no respiratory distress, no accessory muscle useCardiovascular regular rate/rhythm, no edema, no gallop, no JVD, no murmurGastrointestinal normal bowel sounds, non tender, soft, no organomegaly, no pulsatile massBack no CVA tendernessExtremities St post bilateral transmetatarsal amputation of feet. Right foot with extensive open wound [id number] diagonally across the foot with hypergranulationt tisse and green, thick purulent discharge. 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, normal mood/affect, no motor/sensory deficits, oriented x 3Skin normal color (Multiple scatterred areas that), multiple lesions that appearto be pustules on various stages of healing that could be the result of impetigovs insect bitesLymphatic no adenopathyOther:Current MedicationsAcetaminophen 650 MG Q4H PRN PO pain, fever and/or headache Aluminum Hydroxide 30 ML Q4H PRN PO INDIGESTION Amlodipine Besylate 10 MG DAILY PO Atorvastatin Calcium 10 MG HS PO Diphenhydramine HCl 25 MG Q12H PRN PO ITCHING/ITCHINESS Duloxetine HCl 60 MG DAILY PO Heparin Sodium 300 UNIT Q12H.1 IV Heparin Sodium 300 UNIT FLUSH.PICC PRN IV KEEP PICC LINE PATENT Hydralazine HCl 12.5 MG BID PO Insulin Glargine 40 U BID SC Insulin Human Regular MODERATE DOSE - Sliding Scale < 60 MG/DL * Follow Hypoglycemic Protocol 61 - 150 No COVERAGE 151 - 180 2 UNITS 181 - 240 4 UNITS 241 - 300 6 UNITS 301 - 350 8 UNITS 351 - 400 10 UNITS > 400 Serum Glucose, Notify Provider ACHS SC Losartan Potassium 100 MG DAILY PO Metformin HCl 1,000 MG BID PO Nutritional Formula (Lactose Free) 1 CAP BID PO Nystatin 1 DOSE BID TP Oxycodone/Acetaminophen 1 TAB Q6H PRN PO PAIN Sodium Chloride 10 ML Q12H.1 IV Sodium Chloride 10 ML FLUSH.PICC PRN IV KEEP PICC LINE PATENT Triamcinolone Acetonide 1 DOSE BID PRN TP RASH Vital Signs Date Time Temp Pulse Resp B/P B/P Pulse O2 O2 Flow FiO2 Mean Ox Delivery Rate 02/14 2000 97.9 83 24 143/74 98 02/13 707 98.6 80 18 136/77 99 Assessment/PlanAllergiesCoded Allergies:cefazolin (02/08/20 )fluoxetine (02/08/20)pseudoephedrine (02/08/20)trazodone (02/08/20) Additional NotesLaboratory Tests All Test Result Date Time Chemistry Sodium (136 - 145 mmol/L) 138 02/15 0625 Potassium (3.5 - 5.1 mmol/L) 4.4 02/15 0625 Chloride (98 - 107 mmol/L) 103 02/15 0625 Carbon Dioxide (21 - 32 mmol/L) 26 02/15 0625 Anion Gap (5 - 12 mmol/L) 9.0 02/15 0625 BUN (7 - 18 mg/dL) 24 H 02/15 0625 Creatinine (0.6 - 1.0 mg/dL) 0.8 02/15 0625 Estimated GFR (MDRD) (mL/min) 75 02/15 0625 Glucose (74 - 106 mg/dL) 65 L 02/15 0625 Specific Rothschild (1.001 - 1.035) >1.030 02/08 1900 Calcium (8.5 - 10.1 mg/dL) 9.4 02/15 0625 Magnesium (1.8 - 2.4 mg/dL) 1.6 L 02/08 0625 Total Bilirubin (0.2 - 1.0 mg/dL) 0.2 02/15 0625 AST (15 - 37 U/L) 15 02/15 0625 ALT (12 - 78 U/L) 22 02/15 0625 Alkaline Phosphatase (46 - 116 U/L) 107 02/15 0625 C-Reactive Protein (0.0 - 3.0 mg/L) 9.0 H 02/15 0625 Total Protein (6.4 - 8.2 g/dl) 6.5 02/15 0625 Albumin (3.4 - 5.0 gm/dL) 2.7 *L 02/15 0625 Hematology WBC (4.0 - 10.0 K/mm3) 9.2 02/15 0625 RBC (4.00 - 5.50 M/mm3) 3.93 L 02/15 0625 Hgb (12.0 - 16.0 gm/dL) 10.0 L 02/15 0625 Hct (36.0 - 48.8 %) 32.1 L 02/15 0625 MCV (80 - 96 fl) 81.7 02/15 0625 MCH (27.0 - 31.0 pg) 25.4 L 02/15 0625 MCHC Differential (32.0 - 36.0 g/dl) 31.2 L 02/15 0625 RDW (10.0 - 14.5 %) 16.4 H 02/15 0625 Plt Count (172 - 450 K/mm3) 390 02/15 0625 MPV (9.0 - 13.0 fl) 9.9 02/15 0625 Gran % (Auto) (50 - 80.0 %) 50.5 02/15 0625 Gran # (2.0 - 8.00 K/mm3) 4.7 02/15 0625 Immature Gran % (0.0 - 0.2 %) 0.3 H 02/15 0 625 Lymphocytes % (25.0 - 50.0 %) 38.4 02/15 0625 Monocytes % (2.0 - 10.0 %) 6.8 02/15 0625 Eosinophils % (0 - 5.0 %) 2.7 02/15 625 Basophils % (0.0 - 2.0 %) 1.3 02/15 625 Immature Gran # (0.0 - 0.2 K/mm3) 0.0 02/15 625 Lymphocytes # (1.0 - 5.0 K/mm3) 3.5 02/15 625 Monocytes # (0.10 - 1.20 K/mm3) 0.6 02/15 625 Eosinophils # (0.0 - 0.5 K/mm3) 0.3 02/15 625 Basophils # (0.0 - 0.2 K/mm3) 0.1 02/15 625 ESR (0 - 30 mm/hr) 50 H 02/15 625 Other Body Source Stl C. cayetanensis PCR (Not Detected) Not Detected 02/07 1946 Stool Rotavirus A PCR (Not Detected) Not Detected 02/07 1946 Stl Adenov F 40/41 PCR (Not Detected) Not Detected 02/07 1946 Stool Astrovirus (PCR) (Not Detected) Not Detected 02/07 1946 Stool Campylobacter PCR (Not Detected) Not Detected 02/07 1946 Stool Cryptosporidium PCR (Not Detected) Not Detected 02/07 1946 Stool E coli O157 PCR (Not Detected) Not Applicable 02/07 1946 Stl Enterotoxigenic E PCR (Not Detected) Not Detected 02/07 1946 Stool EPEC (PCR) (Not Detected) Not Detected 02/07 1946 Stl E. histolytica PCR (Not Detected) Not Detected 02/07 1946 Stool Giardia Lamblia PCR (Not Detected) Not Detected 02/07 1946 Stl Shiga-like Tx 1 PCR (Not Detected) Not Detected 02/07 1946 Stl P. shigelloides PCR (Not Detected) Not Detected 02/07 1946 Stl Shigella/EIEC PCR (Not Detected) Not Detected 02/[address] Y.enterocolitica PCR (Not Detected) Not Detected 02/07 1946 Stool Vibrio (PCR) (Not Detected) Not Detected 02/07 1946 Stl Vibrio cholera PCR (Not Detected) Not Detected 02/07 1946 Stl Enteroaggr Ecoli PCR (Not Detected) Not Detected 02/07 1946 Stl Norovirus GI/GII PCR (Not Detected) Not Detected 02/07 1946 Serology C. difficile (PCR) (Not Detected) Not Detected 02/07 1946 C. difficile Toxin A&B (NEGATIVE) NEGATIVE 02/07 1946 Salmonella (PCR) (Not Detected) Not Detected 02/07 1946 Staph saprophyticus PCR (Not Detected) Not Detected 02/07 1946 Urines Urine Color YELLOW 02/08 1900 Urine Appearance SLIGHTY CLOUDY 02/08 1900 Urine pH (5.0 - 9.0) 5.5 02/08 1900 Urine Protein (NEGATIVE mg/dL) 3+(300) H 02/08 1900 Urine Ketones (NEGATIVE mg/dL) NEGATIVE 02/08 1900 Urine Blood (NEGATIVE) 1+(SMALL) H 02/08 1900 Urine Nitrite (NEGATIVE) NEGATIVE 02/08 1900 Urine Bilirubin (NEGATIVE) NEGATIVE 02/08 1900 Urine Urobilinogen (0 - 1 mg/dL) NORMAL(0.2-1) 02/08 1900 Ur Leukocyte Esterase (NE GATIVE) TRACE 02/08 1900 Urine Microscopic RBC (0 - 3 /hpf) 5-10 H 02/08 1900 Urine Microscopic WBC (0 - 5 /hpf) 3-5 02/08 1900 Ur Epithelial Cells (0 /hpf) 2+ 02/08 1900 Urine Bacteria (NONE SEEN) 1+ 02/08 1900 Urine Yeast PRESENT 02/08 1900 Urine Glucose (NEGATIVE mg/dL) 500 H 02/08 1900 Current MedicationsAcetaminophen 650 MG Q4H PRN PO pain, fever and/or headache Aluminum Hydroxide 30 ML Q4H PRN PO INDIGESTION Amlodipine Besylate 10 MG DAILY PO Atorvastatin Calcium 10 MG HS PO Diphenhydramine HCl 25 MG Q12H PRN PO ITCHING/ITCHINESS Duloxetine HCl 60 MG DAILY PO Heparin Sodium 300 UNIT Q12H.1 IV Heparin Sodium 300 UNIT FLUSH.PICC PRN IV KEEP PICC LINE PATENT Hydralazine HCl 12.5 MG BID PO Insulin Glargine 40 U BID SC Insulin Human Regular MODERATE DOSE - Sliding Scale < 60 MG/DL * Follow Hypoglycemic Protocol 61 - 150 No COVERAGE 151 - 180 2 UNITS 181 - 240 4 UNITS 241 - 300 6 UNITS 301 - 350 8 UNITS 351 - 400 10 UNITS > 400 Serum Glucose, Notify Provider ACHS SC Losartan Potassium 100 MG DAILY PO Metformin HCl 1,000 MG BID PO Nutritional Formula (Lactose Free) 1 CAP BID PO Nystatin 1 DOSE BID TP Oxycodone/Acetaminophen 1 TAB Q6H PRN PO PAIN Sodium Chloride 10 ML Q12H.1 IV Sodium Chloride 10 ML FLUSH.PICC PRN IV KEEP PICC LINE PATENT Triamcinolone Acetonide 1 DOSE BID PRN TP RASH Vital Signs 02/15 02/15 0729 1938 Temp 97.8 98.9 Pulse 82 83 Resp 18 16 B/P 118/67 133/70 B/P Mean Pulse Ox 98 98 O2 Delivery O2 Flow Rate FiO2 Problem List 1. Osteomyelitis of right foot A&PContinue Oxacillin 2g iv q 6 hrs for six weeks plus daily wound care with Vashe solution and absorbable dressing plus Kerlix.Optimizing diabetes control as well as elevation are very importam=nt. Patient'swound looks worris ome 2. Diabetes type 2, controlled A&PContinue Lantus Insulin bid, ADA diet and sliding scale. 3. Normocytic anemia A&PAnemia of likely iron deficiency origin.Hb 10.0 4. Diarrhea A&PRelated to antibiotic therapy GI panel was negative for C.Diff/ 5. Hypertension A&PCardiac diet recommended.Continue Hydralazine, Losartan and Amlodipine 6. Depression A&PContinue Duloxetine 7. PTSD (post-traumatic stress disorder) A&PContinue supportive care. 8. Bipolar disorder A&PContinue monitoring for symptoms. VTE ProphylaxisVTE Prophylaxis: Encourage ambulation. Name Value Range Interpretation Code Description Data [facility](s) Supporting Document(s) ID Date Data Source [id number] 02/16/2020 07:54:00 AM [facility] Name Value Range Interpretation Code Description Data [facility](s) Supporting Document(s) ERYTHROCYTE SEDIMENTATION RATE 50 mm/hr 0-30 H [facility] ID Date Data Source [id number] 02/16/2020 07:00:00 AM [facility] Name Value Range Interpretation Code Description Data [facility](s) Supporting Document(s) WHITE BLOOD COUNT 9.2 K/mm3 4.0-10.0 [facility]LO[facility] 3.93 M/mm3 4.00-5.50 L [facility] HEMOGLOBIN 10.0 gm/dL 12.0-16.0 L [facility] HEMATOCRIT 32.1 % 36.0-48.8 L [facility] MEAN CELL VOLUME 81.7 fl 80-96 [facility] l MEAN CORPUSCULAR HEMOGLOBIN 25.4 pg 27.0-31.0 L [facility] MEAN CORPUSCULAR HGB CONC 31.2 g/dl 32.0-36.0 L [facility] RED CELL DISTRIBUTION WIDTH 16.4 % 10.0-14.5 H [facility] PLATELET COUNT 390 K/mm3 172-450 [facility] MEAN PLATELET VOLUME 9.9 fl 9.0-13.0 [facility] pital GRAN % 50.5 % 50-80.0 [facility] IG% 0.3 % 0.0-0.2 H [facility] LYMPH % 38.4 % 25.0-50.0 [facility] MONO % 6.8 % 2.0-10.0 [facility] EOS % 2.7 % 0-5.0 [facility] BASO % 1.3 % 0.0-2.0 [facility] GRAN # 4.7 K/mm3 2.0-8.00 [facility] IG# 0.0 K/mm3 0.0-0.2 [facility] LYMPH # 3.5 K/mm3 1.0-5.0 [facility] MONO # 0.6 K/mm3 0.10-1.20 [facility] EOS # 0.3 K/mm3 0.0-0.5 [facility] BASO # 0.1 K/mm3 0.0-0.2 [facility] ID Date Data Source [id number] 02/16/2020 07:10:00 AM EDT [facility] Name Value Range Interpretation Code Description Data [facility](s) Supporting Document(s) C REACTIVE PROTEIN 9.0 mg/L 0.0-3.0 H [facility] ID Date Data Source [id number] 02/16/2020 07:10:00 AM EDT [facility] l Name Value Range Interpretation Code Description Data [facility]s) Supporting Document(s) GLUCOSE 65 mg/dL 74-106 L [facility] BLOOD UREA NITROGEN 24 mg/dL 7-18 H [facility] CREATININE 0.8 mg/dL 0.6-1.0 [facility] SODIUM 138 mmol/L 136-145 [facility] POTASSIUM 4.4 mmol/L 3.5-5.1 [facility] CHLORIDE 103 mmol/L 98-107 [facility] CO2 26 mmol/L 21-32 [facility] CALCIUM 9.4 mg/dL 8.5-10.1 [facility] ANION GAP 9.0 mmol/L 5-12 [facility] GLOMERULAR FILTRATION RATE 75 mL/min [facility] GFR IS CALCULATED IN mL/min/1.73m2 MELLO L FUNCTION: >90MILDLY DECREASED: 60-89MILDY TO MODERATELY DECREASED: 45-59 MODERATELY TO SEVERELY DECREASED: 30-44SEVERELY DECREASED: 15-29RENAL FAILURE: <15 AST 15 U/L 15-37 [facility] ALT 22 U/L 12-78 [facility] ALKALINE PHOSPHATASE 107 U/L 46-116 [facility] pital TOTAL BILIRUBIN 0.2 mg/dL 0.2-1.0 [facility] TOTAL PROTEIN 6.5 g/dl 6.4-8.2 [facility] ALBUMIN 2.7 gm/dL 3.4-5.0 *L [facility] ID Date Data Source [id number] 02/15/2020 10:13:00 AM EDT [facility] DATE OF EXAMINATION: 02/14/2020 21:37 EDT CHEST 1 VIEW HISTORY: PICC line placement TECHNIQUE: Single frontal radiograph of chest COMPARISON: None. FINDINGS: No evidence of focal consolidation, pneumothorax or large pleural effusion.Lungs are clear. Mediastinal structures are unremarkable. No aggressive osseouslesions. IMPRESSION: No focal consolidation. Left-sided PICC line is in place with is tip in theproximal superior vena cava. Electronically signed in PS360 by: Jamal Kimble M.D. 02/15/2020 10:08 EDT Name Value Range Interpretation Code Description Data Shelby rce(s) Supporting Document(s) ID Date Data Source [id number] 02/15/2020 07:40:00 AM EDT [facility] Name Value Range Interpretation Code Description Data Shelby rce(s) Supporting Document(s) ERYTHROCYTE SEDIMENTATION RATE 50 mm/hr 0-30 H [facility] ID Date Data Source [id number] 02/15/2020 06:36:00 AM EDT [facility] Name Value Range Interpretation Code Description Data Shelby rce(s) Supporting Document(s) WHITE BLOOD COUNT 8.3 K/mm3 4.0-10.0 [facility]LOOD COUNT 3.98 M/mm3 4.00-5.50 L [facility] l HEMOGLOBIN 10.1 gm/dL 12.0-16.0 L [facility] HEMATOCRIT 33.0 % 36.0-48.8 L [facility] MEAN CELL VOLUME 82.9 fl 80-96 [facility] MEAN CORPUSCULAR HEMOGLOBIN 25.4 pg 27.0-31.0 L [facility] MEAN CORPUSCULAR HGB CONC 30.6 g/dl 32.0-36.0 L [facility] RED CELL DISTRIBUTION WIDTH 16.6 % 10.0-14.5 H [facility] PLATELET COUNT 390 K/mm3 172-450 [facility] MEAN PLATELET VOLUME 9.5 fl 9.0-13.0 [facility] pital GRAN % 47.7 % 50-80.0 L [facility] IG% 0.5 % 0.0-0.2 H [facility] LYMPH % 40.5 % 25.0-50.0 [facility] MONO % 6.6 % 2.0-10.0 [facility] EOS % 3.4 % 0-5.0 [facility] BASO % 1.3 % 0.0-2.0 [facility] GRAN # 4.0 K/mm3 2.0-8.00 [facility] IG# 0.0 K/mm3 0.0-0.2 [facility] LYMPH # 3.4 K/mm3 1.0-5.0 [facility] MONO # 0.6 K/mm3 0.10-1.20 [facility] EOS # 0.3 K/mm3 0.0-0.5 [facility] BASO # 0.1 K/mm3 0.0-0.2 [facility] ID Date Data Source [id number] 02/15/2020 07:09:00 AM EDT [facility] l Name Value Range Interpretation Code Description Data Shelby rce(s) Supporting Document(s) GLUCOSE 74 mg/dL 74-106 [facility] BLOOD UREA NITROGEN 25 mg/dL 7-18 H [facility] CREATININE 0.8 mg/dL 0.6-1.0 [facility] SODIUM 137 mmol/L 136-145 [facility] POTASSIUM 4.4 mmol/L 3.5-5.1 [facility] CHLORIDE 100 mmol/L 98-107 [facility] CO2 27 mmol/L 21-32 [facility] CALCIUM 9.4 mg/dL 8.5-10.1 [facility] ANION GAP 10.0 mmol/L 5-12 [facility] GLOMERULAR FILTRATION RATE 75 mL/min [facility] GFR IS CALCULATED IN mL/min/1.73m2 MELLO L FUNCTION: >90MILDLY DECREASED: 60-89MILDY TO MODERATELY DECREASED: 45-59 MODERATELY TO SEVERELY DECREASED: 30-44SEVERELY DECREASED: 15-29RENAL FAILURE: <15 AST 14 U/L 15-37 [facility] ALT 23 U/L 12-78 [facility] ALKALINE PHOSPHATASE 113 U/L 46-116 [facility] pital TOTAL BILIRUBIN 0.2 mg/dL 0.2-1.0 [facility] TOTAL PROTEIN 6.5 g/dl 6.4-8.2 [facility] ALBUMIN 2.8 gm/dL 3.4-5.0 *L [facility] ID Date Data Source [id number] 02/15/2020 07:09:00 AM [facility] Name Value Range Interpretation Code Description Data Shelby rce(s) Supporting Document(s) C REACTIVE PROTEIN 13.0 mg/L 0.0-3.0 H [facility] ID Date Data Source [id number] 02/09/2020 09:12:00 PM T [facility] Name Value Range Interpretation Code Description Data Shelby rce(s) Supporting Document(s) URINE RBC 5-10 /hpf 0-3 H [facility] URINE WBC 3-5 /hpf 0-5 [facility] URINE EPITHELIAL CELLS 2+ /hpf 0 [facility] URINE BACTERIA 1+ NONE SEEN [facility] URINE YEAST PRESENT [facility] URINE CULTURE ADDED. ID Date Data Source [id number] 02/09/2020 09:09:00 PM [facility] Name Value Range Interpretation Code Description Data Shelby rce(s) Supporting Document(s) URINE COLOR. YELLOW [facility] URINE APPEARANCE SLIGHTY CLOUDY [facility] SPECIFIC GRAVITY,URINE >1.030 1.001-1.035 [facility] URINE LEUKOCYTE ESTERASE TRACE NEGATIVE [facility] URINE NITRATE NEGATIVE NEGATIVE [facility] PH,URINE 5.5 5.0-9.0 [facility] URINE PROTEIN 3+(300) mg/dL NEGATIVE H [facility] GLUCOSE (UA) 500 mg/dL NEGATIVE H [facility] URINE KETONE NEGATIVE mg/dL NEGATIVE [facility] UROBILINOGEN NORMAL(0.2-1) mg/dL 0-1 [facility] URINE BILIRUBIN NEGATIVE NEGATIVE [facility] URINE BLOOD 1+(SMALL) NEGATIVE H [facility] ID Date Data Source [id number] 02/09/2020 05:01:00 PM EDT [facility] l In-Patient NoteNote:Laboratory Tests 02/07 Other Body Source Stl C. cayetanensis PCR (Not Detected) Not Detected Stool Rotavirus A PCR (Not Detected) Not Detected Stl Adenov F 40/41 PCR (Not Detected) Not Detected Stool Astrovirus (PCR) (Not Detected) Not Detected Stool Campylobacter PCR (Not Detected) Not Detected Stool Cryptosporidium PCR (Not Detected) Not Detected Stool E coli O157 PCR (Not Detected) Not Applicable Stl Enterotoxigenic E PCR (Not Detected) Not Detected Stool EPEC (PCR) (Not Detected) Not Detected Stl E. histolytica PCR (Not Detected) Not Detected Stool Giardia Lamblia PCR (Not Detected) Not Detected Stl Shiga-like Tx 1 PCR (Not Detected) Not Detected Stl P. shigelloides PCR (Not Detected) Not Detected Stl Shigella/EIEC PCR (Not Detected) Not Detected St Y.enterocolitica PCR (Not Detected) Not Detected Stool Vibrio (PCR) (Not Detected) Not Detected Stl Vibrio cholera PCR (Not Detected) Not Detected Stl Enteroaggr Ecoli PCR (Not Detected) Not Detected Stl Norovirus GI/GII PCR (Not Detected) Not Detected Serology C. difficile (PCR) (Not Detected) Not Detected C. difficile Toxin A&B (NEGATIVE) NEGATIVE Salmonella (PCR) (Not Detected) Not Detected Staph saprophyticus PCR (Not Detected) Not Detected 02/070 0655 Chemistry Sodium (136 - 145 mmol/L) 139 Potassium (3.5 - 5.1 mmol/L) 4.4 Chloride (98 - 107 mmol/L) 103 Carbon Dioxide (21 - 32 mmol/L) 26 Anion Gap (5 - 12 mmol/L) 10.0 BUN (7 - 18 mg/dL) 20 H Creatinine (0.6 - 1.0 mg/dL) 0.8 Estimated GFR (MDRD) (mL/min) 75 Glucose (74 - 106 mg/dL) 117 H Specific [place] (1.001 - 1.035) 1.025 Calcium (8.5 - 10.1 mg/dL) 9.2 Magnesium (1.8 - 2.4 mg/dL) 1.6 L Total Bilirubin (0.2 - 1.0 mg/dL) 0.3 AST (15 - 37 U/L) 17 ALT (12 - 78 U/L) 28 Alkaline Phosphatase (46 - 116 U/L) 125 H C-Reactive Protein (0.0 - 3.0 mg/L) 15.6 H Total Protein (6.4 - 8.2 g/dl) 6.7 Album in (3.4 - 5.0 gm/dL) 2.7 *L Hematology WBC (4.0 - 10.0 K/mm3) 11.0 H RBC (4.00 - 5.50 M/mm3) 3.93 L Hgb (12.0 - 16.0 gm/dL) 10.1 L Hct (36.0 - 48.8 %) 32.4 L MCV (80 - 96 fl) 82.4 MCH (27.0 - 31.0 pg) 25.7 L MCHC Differential (32.0 - 36.0 g/dl) 31.2 L RDW (10.0 - 14.5 %) 16.0 H Plt Count (172 - 450 K/mm3) 431 MPV (9.0 - 13.0 fl) 9.8 Gran % (Auto) (50 - 80.0 %) 46.4 L Gran # (2.0 - 8.00 K/mm3) 5.1 Immature Gran % (0.0 - 0.2 %) 0.7 H Lymphocytes % (25.0 - 50.0 %) 40.8 Monocytes % (2.0 - 10.0 %) 7.2 Eosinophils % (0 - 5.0 %) 3.8 Basophils % (0.0 - 2.0 %) 1.1 Immature Gran # (0.0 - 0.2 K/mm3) 0.1 Lymphocytes # (1.0 - 5.0 K/mm3) 4.5 Monocytes # (0.10 - 1.20 K/mm3) 0.8 Eosinophils # (0.0 - 0.5 K/mm3) 0.4 Basophils # (0.0 - 0.2 K/mm3) 0.1 ESR (0 - 30 mm/hr) 56 H Urines Urine Color YELLOW Urine Appearance CLOUDY Urine pH (5.0 - 9.0) 6.5 Urine Protein (NEGATIVE mg/dL) 2+(100) H Urine Ketones (NEGATIVE mg/dL) NEGATIVE Urine Blood (NEGATIVE) 1+(SMALL) H Urine Nitrite (NEGATIVE) NEGATIVE Urine Bilirubin (NEGATIVE) NEGATIVE Urine Urobilinogen (0 - 1 mg/dL) NORMAL(0.2-1) Ur Leukocyte Esterase (NEGATIVE) 1+(SMALL) H Urine Microscopic RBC (0 - 3 /hpf) 3-5 H Urine Microscopic WBC (0 - 5 /hpf) 10-15 H Ur Epithelial Cells (0 /hpf) 1+ Urine Bacteria (NONE SEEN) 1+ Urine Glucose (NEGATIVE mg/dL) 500 H Labs reviewed: CBC: Slight leukopenia, normocytic anemia, abnormal differential, slight thrombocytosis, elevated ESR (improved from prior) GI panel and C. difficile were negative Urinalysis: UA is abnormal with proteinuria, microscopic hematuria, positive WBCs, glucosuria, 1+ bacteria and epithelial cells, positive leukocyte esterase. Will repeat UA with C&S for completeness as patient is asymptomatic. CMP: Slight hyperglycemia, chronic kidney disease stage II, slight hypomagnesemia, elevated CRP, moderate PCM. We'll follow up CRP weekly. Supplement magnesium and follow-up level. Provide protein supplementation. Patient will have her weekly labs in 1 week including CMP, CBC, CRP, ESR and a magnesium level. We did have the dressing removed and observe the wound. There is the surgical wound from October that his 11 1/2 x 8 1/2 cm. There is an opening within the incisions that is 8 1/2 cm wide by 2 1/2cm Deep. There was some serous drainage. There are also residual components from the dressing on the wound. There is no significant erythema. There was no warmth. She does not have lymphangitis. Name Value Range Interpretation Code Description Data Shelby rce(s) Supporting Document(s) ID Date Data Source [id number] 02/09/2020 08:07:00 AM EDT [facility] Name Value Range Interpretation Code Description Data [facility] Supporting Document(s) C REACTIVE PROTEIN 15.6 mg/L 0.0-3.0 [facility] ID Date Data Source [id number] 02/09/2020 07:57:00 AM EDT [facility] Name Value Range Interpretation Code Description Data Shelby rce(s) Supporting Document(s) MAGNESIUM 1.6 mg/dL 1.8-2.4 L [facility] ID Date Data Source [id number] 02/09/2020 07:57:00 AM [facility] Name Value Range Interpretation Code Description Data Shelby rce(s) Supporting Document(s) GLUCOSE 117 mg/dL 74-106 H [facility] BLOOD UREA NITROGEN 20 mg/dL 7-18 H [facility] CREATININE 0.8 mg/dL 0.6-1.0 [facility] SODIUM 139 mmol/L 136-145 [facility] POTASSIUM 4.4 mmol/L 3.5-5.1 [facility] CHLORIDE 103 mmol/L 98-107 [facility] CO2 26 mmol/L 21-32 [facility] CALCIUM 9.2 mg/dL 8.5-10.1 [facility] ANION GAP 10.0 mmol/L 5-12 [facility] GLOMERULAR FILTRATION RATE 75 mL/min [facility] GFR IS CALCULATED IN mL/min/1.73m2 MELLO L FUNCTION: >90MILDLY DECREASED: 60-89MILDY TO MODERATELY DECREASED: 45-59 MODERATELY TO SEVERELY DECREASED: 30-44SEVERELY DECREASED: 15-29RENAL FAILURE: <15 AST 17 U/L 15-37 [facility] ALT 28 U/L 12-78 [facility] ALKALINE PHOSPHATASE 125 U/L 46-116 H [facility] pital TOTAL BILIRUBIN 0.3 mg/dL 0.2-1.0 [facility] TOTAL PROTEIN 6.7 g/dl 6.4-8.2 [facility] ALBUMIN 2.7 gm/dL 3.4-5.0 *L [facility] ID Date Data Source [id number] 02/09/2020 08:00:00 AM [facility] Name Value Range Interpretation Code Description Data Shelby rce(s) Supporting Document(s) ERYTHROCYTE SEDIMENTATION RATE 56 mm/hr 0-30 H [facility] ID Date Data Source [id number] 02/09/2020 07:05:00 AM [facility] Name Value Range Interpretation Code Description Data Shelby rce(s) Supporting Document(s) WHITE BLOOD COUNT 11.0 K/mm3 4.0-10.0 H [facility] RED BLOOD COUNT 3.93 M/mm3 4.00-5.50 L [facility] l HEMOGLOBIN 10.1 gm/dL 12.0-16.0 L [facility] HEMATOCRIT 32.4 % 36.0-48.8 L [facility] MEAN CELL VOLUME 82.4 fl 80-96 [facility] MEAN CORPUSCULAR HEMOGLOBIN 25.7 pg 27.0-31.0 L [facility] MEAN CORPUSCULAR HGB CONC 31.2 g/dl 32.0-36.0 L [facility] RED CELL DISTRIBUTION WIDTH 16.0 % 10.0-14.5 H [facility] PLATELET COUNT 431 K/mm3 172-450 [facility] MEAN PLATELET VOLUME 9.8 fl 9.0-13.0 [facility] pital GRAN % 46.4 % 50-80.0 L [facility] IG% 0.7 % 0.0-0.2 H [facility] LYMPH % 40.8 % 25.0-50.0 [facility] MONO % 7.2 % 2.0-10.0 [facility] EOS % 3.8 % 0-5.0 [facility] BASO % 1.1 % 0.0-2.0 [facility] GRAN # 5.1 K/mm3 2.0-8.00 [facility] IG# 0.1 K/mm3 0.0-0.2 [facility] LYMPH # 4.5 K/mm3 1.0-5.0 [facility] MONO # 0.8 K/mm3 0.10-1.20 [facility] EOS # 0.4 K/mm3 0.0-0.5 [facility] BASO # 0.1 K/mm3 0.0-0.2 [facility] ID Date Data Source [id number] 02/12/2020 09:46:00 AM EDT [facility] Name Value Range Interpretation Code Description Data Shelby rce(s) Supporting Document(s) [facility] ID Date Data Source [id number] 02/08/2020 10:03:00 PM EDT [facility] Name Value Range Interpretation Code Description Data Shelby rce(s) Supporting Document(s) URINE RBC 3-5 /hpf 0-3 H [facility] URINE WBC 10-15 /hpf 0-5 H [facility] URINE CULTURE ADDED TO SAMPLE. URINE EPITHELIAL CELLS 1+ /hpf 0 [facility] URINE BACTERIA 1+ NONE SEEN [facility] ID Date Data Source [id number] 02/08/2020 09:56:00 PM EDT [facility] Name Value Range Interpretation Code Description Data Shelby rce(s) Supporting Document(s) URINE COLOR. [facility] URINE APPEARANCE CLOUDY [facility] SPECIFIC GRAVITY,URINE 1.025 1.001-1.035 [facility] URINE LEUKOCYTE ESTERASE 1+(SMALL) NEGATIVE [facility] URINE NITRATE NEGATIVE NEGATIVE [facility] PH,URINE 6.5 5.0-9.0 [facility] URINE PROTEIN 2+(100) mg/dL NEGATIVE [facility] URINE GLUCOSE (UA) 500 mg/dL NEGATIVE [facility] jack URINE KETONE NEGATIVE mg/dL NEGATIVE [facility] al URINE UROBILINOGEN NORMAL(0.2-1) mg/dL 0-1 [facility] URINE BILIRUBIN NEGATIVE NEGATIVE [facility] URINE BLOOD 1+(SMALL) NEGATIVE [facility] ID Date Data Source [id number] 02/08/2020 11:18:00 PM EDT [facility] Name Value Range Interpretation Code Description Data [facility] rce(s) Supporting Document(s) Campylobacter Not Detected Detected [facility] Clostridium difficile toxin AB Not Detected Detected [facility] Due to the high asymptomatic carriage ra [place], especiallyin young children, the clinical relevance of the detectionof toxigenic C. difficile from stool should be consideredin the context of other clinical findings, patient age, andrisk factores which include hospitalization and antibioticexposure. Plesiomonas shigelloides Not Detected Detected [facility] Salmonella Not Detected Detected [facility] Vibrio Not Detected Detected [facility] Vibrio cholerae Not Detected Detected [facility] Yersinia enterocolitica Not Detected Detected [facility] Enteroaggregative E. coli Not Detected Detected [facility] Enteropathogenic E. coli Not Detected Detected [facility] Enterotoxigenic E. coli Not Detected Detected [facility] Shiga-like toxin-prod E. coli Not Detected Detected [facility] E. coli O157 Not Applicable Detected [facility] Shigella/Enteroinvasive E coli Not Detected Detected [facility] Cryptosporidium Not Detected Detected [facility] Cyclospora cayetanensis Not Detected Detected [facility] Entamoeba histolytica Not Detected Detected [facility] Giardia Lamblia Not Detected Detected [facility] Adenovirus F 40/41 Not Detected Detected [facility] Astrovirus Not Detected Detected [facility] Norovirus GI/GII Not Detected Detected Not R [facility] Rotavirus A Not Detected Detected Not [facility] Sapovirus Not Detected Detected Not [facility] The Above results have been determined b y using the [employer] system.FilmArray is an automated in vitro diagnostic system thatutilizes nested multiplex Polymerase Chain Reaction (PCR)and high-resolution melting analysis to detect and identifymultiple nucleic acid targets from clinical specimens. ID Date Data Source [id number] 02/08/2020 10:37:00 PM EDT [facility] Name Value Range Interpretation Code Description Data Shelby rce(s) Supporting Document(s) CDIFF A/B NEGATIVE NEGATIVE [facility] THIS TEST IS PERFORMED USING A RAPIDIMMU NONASSAY FOR DETECTING CLOSTRIDIUM DIFFICILE TOXINS AAND B. ID Date Data Source [id number] 02/08/2020 03:23:00 PM EDT [facility] HistoryChief Complaint/Admit ReasonRigh t foot wound infection I did review what records were sent from [facility], but it was very limited and a lot of it was difficult to read.History of Presenting IllnessThe patient is a 54-year-old white female who has been dealing with a right wound infection since . The patient is status post a transmetatarsal amputation 3 years ago and was doing well until she developed a wound infection in late October. She was diagnosed with osteomyelitis and has been treating with Dr. Huston at the wound care center in [place]. He sent herinto the hospital as the wound infection was progressing for further evaluation. The patient was seen by podiatry and had the wound debrided. Cultures were sent and were positive for MSSA. 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 Patient was seen by infectious disease and they recommended a 6 week course of antibiotics through March 09 with nafcillin. Additionally, she felt the patient needs to off load the right lower extremity. Unfortunately, there is a high risk of failure and the patient may need further surgical intervention/amputation. Patient is aware that, but would like to try. While the patient was hospitalized she developed a rash. Dermatology saw the patient and felt it was a contact dermatitis and recommended topical treatment as well as when necessary Benadryl. The patient has had diarrhea since being on antibiotics andit was stated that it was an antibiotic induced. Her stool was never sent for evaluation. I did note elevated LFTs, normocytic anemia and thrombocytosis in the lab work. She did have an elevated ESR of 78 and a CRP of 2.3. ID has recommended weekly lab work (CBC, CMP, CRP and ESR) and follow up with her in about 2 weeks. The patient has been sent to our facility to complete her courseof antibiotics as well as continue wound care.Overall, the patient is feeling better. She denies fever or chills. She deniesnausea or vomiting. Again, she has been having diarrhea daily since starting antibiotics. On average she has 4-5 bowel movements a day. Her stools are loose and watery, but there is no melena or blood. There is no mucus. She denies any recent travel, sick contacts or well water. Her appetite has been good. The patient denies feeling lightheaded or dizzy and has not had headaches. She denies any change in vision, speech or swallowing. She denies any new ENT complaints. The patient denies shortness of breath, wheezing or cough. She denies chest pain or palpitations. She denies abdominal pain, heartburn, indigestion, dysphagia or odynophagia. She is voiding without difficulty and denies any complaints. She is ambulating using a walker and is nonweightbearing with the right lower extremity. She does have intermittent pain in her right foot and the pain range is 0-8/10. The patient denies weakness. She does have chronic numbness and tingling in both legs and feet from her diabetic neuropathy. Besides the right foot wound, the patient does have a contact dermatitis which was documented above. It involves her arms, legs and abdomen. REVIEW OF SYMPTOMS: 10 point review systems is negative except for as documented above. PAST MEDICAL HISTORY: Osteomyelitis bilateral feetObesityDiabetes mellitus type 2 with hyperglycemia and diabetic neuropathyHypertensionBipolar disorderDepression/anxietyPTSDPrior MRSA infectionHyperlipidemiaHeart murmurAnemiaBilateral cataracts PAST SURGICAL HISTORY: Bilateral transmetatarsal amputationsMultiple surgical debridements of the feet, bilaterallyCholecystectomyTubal ligationC-section 1Fatty tumor excised from left thigh as a child SOCIAL HISTORY: The patient is and lives with her . They have 4 children.She is a former smoker who quit in 2016. Prior smoked about 30 years, one half pack per day.She occasionally drinks alcohol, but does not use drugs.Patient is disabled due to her bipolar disorder as well as PTSD and is on SSI FAMILY HISTORY: Mother at age 62 from breast cancer. She was also diabetic.Father at age 80 from multiorgan failure. He had an aortic aneurysm, CHF, diabetes, tuberculosis, hypertension and hyperlipidemia.Brother age 60 is living and has schizophrenia. She does not really know much about them and has not had a relationship with himBrother age 66, also living, no relationship with him either. She does not knowany of his medical problems.Brother age 41 has autism, seizure disorder, MR and bipolar disorderSister age 56 has renal problems, sleep apnea, hypertension and diabetes ADVANCED DIRECTIVES: Patient's healthcare proxy is her sister.She is a full code IMMUNIZATIONS: Flu and pneumonia vaccines are up-to-date ALLERGIES: SudafedProzacChlorhexidineTrazodoneCeftezolin MEDICATIONS FROM HOSPITAL: Nafcillin 2 g IV every 6 hours for 6 weeks (through 03/09/20)Triamcinolone ointment 0.1% twice a dayPercocet 5/325 one to 2 every 4-8 hours as neededBenadryl 25 mg every 12 hours as needed for itchingNystatin powder 3 times a day to patient's groinAmlodipine 10 mg by mouth dailyLevemir 40 units subcutaneous twice a dayHydralazine 5 mg by mouth 4 times a dayDuloxetine 60 mg by mouth dailyLosartan 100 mg by mouth dailyMetformin 1000 mg mouth twice a daySliding scale insulin coverageAtorvastatin 10 mg by mouth daily at bedtime Past Medical/Surgical HistoryPast Medical/Surgical HistoryMedical Problems Anxiety Bipolar disorder Cellulitis and abscess of foot Contact dermatitis Depression Diabetes mellitus type 2 with complications Diabetes type 2, controlled Diabetic neuropathy Diarrhea Elevated erythrocyte sedimentation rate Elevated LFTs Full code status Hyperlipidemia Hypertension Left foot pain Normocytic anemia Obesity Obesity (BMI 35.0-39.9 without comorbidity) Osteomyelitis of right foot PTSD (post-traumatic stress disorder) Right foot pain Thrombocytosis Wound infection after surgery Yeast vaginitisSurgical Problems History of transmetatarsal amputation of foot AllergiesCoded Allergies:fluoxetine (09/13/15)pseudoephedrine (09/13/15)trazodone (09/13/15) ExamVital SignsVital signs: Temperature 97.2, pulse 85, respirations 16, blood pressure 164/78,O2 sat on room air 97% General: Obese, well-developed white female who is alert, oriented 3, cooperative and in no distressHEENT: Normocephalic, atraumatic, pupils reactive, sclerae anicteric, EOMI, pinkand moist oral mucosa, unremarkable oropharynx.Neck: Full range of motion, supple, nontender, no masses or lymphadenopathy, carotids 2+ without bruits, trachea midline, no Hector, no JVD or HJRLungs: Clear to auscultation bilaterally. There is no accessory muscle movement. There is no evidence of respiratory distress.Chest wall: Nontender and no crepitationHeart: Regular, rate and rhythm, normal S1-S2, no murmur, gallop or rub was noted.Abdomen: Obese, soft, nontender, no masses or organomegaly, bowel sounds are positive in all 4 quadrants.Extremities: The patient did move all 4 extremities at the bedside, Without difficulty. She has a left transmetatarsal amputation that has healed nicely. The right foot has a dressing intact that was just changed a short while ago. Peripheral pulses were palpable on all of her extremities except for where her dressing is on the right foot. There is no calf tenderness.Neurologic: Cranial nerves grossly intact as tested. Normal speech. Motor and sensory appears grossly intact at the bedside.Psychiatric: Mood and affect were appropriateSkin: Patient does have patchy subtle erythematous rash on both upper extremities, right abdomen and legs. There is a dressing intact on the right leg over her wound. This will be assessed tomorrow when we change the dressing.Back: There was no vertebral or CVA tenderness. No paravertebral muscle spasm was noted.Lymphatic: No palpable lymphadenopathy Assessment/PlanProblem List 1. Osteomyelitis of right foot A&PThe patient will have daily wound care with Vashe liquid placed on a couple of 4x 4's into the wound for 10 minutes. This is followed by a Hydrofera Blue, OPTilock with Kerlix wrap daily. Per ID recommendations, the patient will complete a six-week course of antibiotics nafcillin (we have oxacillin on formulary) 2 g every 6 hours through March 09. The patient will have follow-up with ID (Dr. Thomas) in approximately 2 weeks 2. Diabetes mellitus type 2 with complications A&PDiabetic diet, fingersticks with sliding scale coverage, continue metformin and Levemir. Adjust medications depending on patient's glucose levels. For completeness dietitian evaluation 3. Diarrhea A&PThis was documented as being secondary to patient's antibiotics. No stool sample was sent. We will place the patient on a probiotic to hopefully protect her GI jace. For completeness check GI panel/C. difficile 4. Elevated erythrocyte sedimentation rate A&PThe only sedimentation rate that I could find in the old records was 78. We will trend sedimentation rates weekly 5. Normocytic anemia A&PThe patient is anemic and we will follow-up her H&H. She has been on iron in the past. 6. Thrombocytosis A&PThis is likely elevated due to her infectious process. We will trend her platelet levels 7. Elevated LFTs A&PTrend LFTs 8. Contact dermatitis A&PPer dermatology, triamcinolone topically and patient will available Benadryl as needed for itching 9. Right foot pain A&PProvide patient with when necessary analgesia 10. History of transmetatarsal amputation of foot A&PWe will try to offload the patient and see if we can get her infection to heal. If not, she will require further surgical intervention/amputation 11. Hypertension A&PHeart healthy diet. Trend blood pressure and continue amlodipine, hydralazine and losartan, with parameters 12. Hyperlipidemia A&PAgain, heart healthy diet and continue atorvastatin 13. Depression A&PMonitor for exacerbating symptoms and continue duloxetine 14. Anxiety A&PMonitor for exacerbating symptoms and continue duloxetine 15. Bipolar disorder A&PMonitor for exacerbating symptoms and continue duloxetine 16. PTSD (post-traumatic stress disorder) A&PMonitor for exacerbating symptoms and continue duloxetine 17. Obesity A&PFollow-up with PCP as an outpatient. Dietitian evaluation as well DIET Consistent Carbohydrate (NCS, heart healthy)Activity OOB as tolerated w/assist (further activity per PT), the patient is to be nonweightbearing with her right lower extremity, try and offload right lower extremityPatient Condition StableResuscitation Status FULL CODEPlan discussed with patientCase discussed with case folder, nursing staffCopies toFamily Provider: Advance Care Planning* 3 minutes of [id number] time spent for Advance Care Planning in explanation/discussion of Advance Directives.* Following people are present during the meeting: The patient and myself.* Decisions reached: She is a full code. VTE ProphylaxisVTE Prophylaxis: The patient is here for antibiotic treatment, but is ambulatory, therefore no need for anticoagulation prophylaxis. Name Value Range Interpretation Code Description Data Shelby rce(s) Supporting Document(s) ID Date Data Source [id number] 12/23/2019 01:30:00 PM EDT [facility] ([facility]) Name Value Range Interpretation Code Description Data Shelyb rce(s) Supporting Document(s) Erythrocyte sedimentation rate by Westergren method 88 mm/hr 0-30 Above high normal [facility] ([facility]) ID Date Data Source [id number] 12/23/2019 01:30:00 PM EDT [facility] ([facility]) Name Value Range Interpretation Code Description Data Shelby rce(s) Supporting Document(s) Hemoglobin 10.6 g/dL 12.0-15.5 Below low normal [facility] ( [facility]) Red Blood Count 3.92 10 4.00-5.40 Below low normal [facility] ([facility]) White Blood Count 12.6 10 4.0-10.0 Above high normal [facility] ([facility]) Mean Corpuscular Volume 90.1 fl 80.0-96.0 Normal ( applies to non-numeric results) [facility] ([facility]) Hematocrit 35.3 % 36.0-47.0 Below low normal [facility] ( [facility]) Mean Corpuscular Hemoglobin 27.0 pg 27.0-33.0 Norm al (applies to non-numeric results) [facility] ([facility]) Mean Corpuscular HGB Conc 30.0 g/dL 32.0-36.5 Below low normal [facility] ([facility]) Red Cell Distribution Width 14.6 % 11.5-14.5 Above high normal [facility] ([facility]) Platelet Count, Automated 613 10 150-450 Above high normal [facility] ([facility]) Neutrophils % 53.9 % 36.0-66.0 Normal (applies to non-numeric re sults) [facility] ([facility]) Lymph % 33.8 % 24.0-44.0 Normal (applies to non-numeric resul ts) [facility] ([facility]) [place] % 7.3 % 0.0-5.0 Above high normal [facility] ([facility]) Baso % 0.8 % 0.0-1.0 Normal (applies to non-numeric resul ts) [facility] ([facility]) Eos % 2.7 % 0.0-3.0 Normal (applies to non-numeric resul ts) [facility] ([facility]) Immature Granulocyte % 1.5 % 0-3.0 Normal (applies to non-n umeric results) [facility] ([facility]) Nucleated Red Blood Cell % 0.0 % 0-0 Normal (applies to n on-numeric results) [facility] ([facility]) Lymph # 4.2 10 1.5-5.0 Normal (applies to non-numeric resul ts) [facility] ([facility]) Neutrophils # 6.8 10 1.5-8.5 Normal (applies to non-numeric re sults) [facility] ([facility]) Baso # 0.1 10 0.0-0.2 Normal (applies to non-numeric resul ts) [facility] ([facility]) [place] # 0.9 10 0.0-0.8 Above high normal [facility] ([facility]) Eos # 0.3 10 0.0-0.5 Normal (applies to non-numeric resul ts) [facility] ([facility]) ID Date Data Source [id number] 12/23/2019 01:30:00 PM EDT [facility] ([facility]) Name Value Range Interpretation Code Description Data Shelby rce(s) Supporting Document(s) C reactive protein [Mass/volume] in Serum or Plasma by High sensitivity method 3.85 mg/dL 0.00-0.30 Above high normal [facility] ([facility]) ID Date Data Source [id number] 12/23/2019 01:30:00 PM EDT [facility] ([facility]) Name Value Range Interpretation Code Description Data Shelby rce(s) Supporting Document(s) Blood Urea Nitrogen 19 mg/dL 7-18 Above high normal [facility] ([facility]) Glucose, Fasting 162 mg/dL 70-100 Above high normal [facility] ([facility]) Creatinine For GFR 0.72 mg/dL 0.55-1.30 Normal (applies to non -numeric results) [facility] ([facility]) Glomerular Filtration Rate Laboratory test result Normal (applies to non- numeric results) [facility] ([facility]) <content>Units are mL/min/1.73 m2</content>
<content></content>
<content>Chronic Kidney Disease Staging per NKF:</content>
<content></content>
<content>Stage I & II GFR >=60 Normal to Mildly Decreased</content>
<content>Stage III GFR 30- 59 Moderately Decreased</content>
<content>Stage IV GFR 15-29 Severely Decreased</content>
<content>Stage V GFR <15 Very Little GFR Left</content>
<content>ESRD GFR <15 on [employer]UDITOR SUPERVIS[employer]</content>
<content></content> Potassium Serum 4.8 meq/L 3.5-5.1 Normal (applies to non-numeric results) [facility] ([facility]) Sodium Level 136 meq/L 136-145 Normal (applies to non-numeric res ults) [facility] ([facility]) Chloride Level 101 meq/L 98-107 Normal (applies to non-numeric r esults) [facility] ([facility]) Calcium Level 9.4 mg/dL 8.5-10.1 Normal (applies to non-numeric re sults) [facility] ([facility]) Carbon Dioxide Level 29 meq/L 21-32 Normal (applies to non-num lucila results) [facility] ([facility]) Anion Gap 6 meq/L 8-16 Below low normal [facility] ( [facility]) ID Date Data Source [id number] 11/08/2019 01:32:00 PM EDT [facility] ([facility]) Name Value Range Interpretation Code Description Data Shelby rce(s) Supporting Document(s) Hemoglobin A1c/Hemoglobin.total in Blood 8.3 % 4.4-6.1 Above high normal [facility] ([facility]) Is patient fasting? N ID Date Data Source [id number] 11/08/2019 01:32:00 PM EDT [facility] ([facility]) Name Value Range Interpretation Code Description Data Shelby rce(s) Supporting Document(s) Comprehensive Metabo Laboratory test result [facility] ([facility]) Is patient fasting? N Potassium 4.9 meq/L 3.6-5.0 [facility] ([facility]) Is patient fasting? N Sodium 136 meq/L 134-153 [facility] ([facility]) Is patient fasting? N Glucose 183 mg/dL 65-110 Above high normal [facility] ([facility]) Is patient fasting? N Chloride 97 meq/L 98-107 Below low normal [facility] ( [facility]) Is patient fasting? N Co2 24 meq/L 22-30 [facility] ([facility]) Is patient fasting? N BUN 22 mg/dL 7-21 Above high normal [facility] ([facility]) Is patient fasting? N Creatinine 0.7 mg/dL 0.7-1.5 [facility] ([facility]) Is patient fasting? N Total Protein 6.7 g/dL 6.3-8.2 [facility] ([facility]) Is patient fasting? N BUN/Creat 31 8-27 Above high normal [facility] ([facility]) Is patient fasting? N Albumin 3.5 g/dL 3.9-5.0 Below low normal [facility] ( [facility]) Is patient fasting? N A/G Ratio 1.1 0.8-2.0 [facility] ([facility]) Is patient fasting? N Globulin 3.2 GM/DL 2.4-3.2 [facility] ([facility]) Is patient fasting? N Total Bili Laboratory test result 0.2-1.3 [facility] ([facility]) Is patient fasting? N Calcium 9.4 mg/dL 8.4-10.2 [facility] ([facility]) Is patient fasting? N Alkaline Phos 115 U/L 38-126 [facility] ([facility]) Is patient fasting? N SGPT/Alt 16 U/L 7-56 [facility] ([facility]) Is patient fasting? N Anion Gap 15.0 mmol/L 8.0-16.0 [facility] ([facility]) Is patient fasting? N Sgot/Ast 18 U/L 5-40 [facility] ([facility]) Is patient fasting? N Non-Aa GFR 93 mL/min [facility] ([facility]) Is patient fasting? N Age 54 yrs [facility] ([facility]) Is patient fasting? N Afr Amer GFR 113 mL/min [facility] ([facility]) Is patient fasting? N ID Date Data Source [id number] 11/08/2019 09:33:00 PM EDT [facility] Name Value Range Interpretation Code Description Data Shelby rce(s) Supporting Document(s) COMPREHENSIVE METABOLIC PANEL [facility] COMPREHENSIVE METABOLIC PANEL Sodium [Moles/volume] in Serum or Plasma 136 mEq/L 134 - 153 [facility] Potassium [Moles/volume] in Serum or Plasma 4.9 mEq/L 3.6 - 5.0 [facility] Chloride [Moles/volume] in Serum or Plasma 97 mEq/L 98 - 107 L [facility] Carbon dioxide, total [Moles/volume] in Serum or Plasma 24 MEQ/L 22 - 30 [facility] Glucose [Mass/volume] in Serum or Plasma 183 MG/DL 65 - 110 H [facility] BUN 22 MG/DL 7 - 21 H [facility] Creatinine [Mass/volume] in Serum or Plasma 0.7 MG/DL 0.7 - 1.5 [facility] BUN/CREAT 31 8 - [facility] Protein [Mass/volume] in Serum or Plasma 6.7 G/DL 6.3 - 8.2 [facility] Albumin [Mass/volume] in Serum or Plasma 3.5 G/DL 3.9 - 5.0 L [facility] Globulin [Mass/volume] in Serum by calculation 3.2 GM/DL 2.4 - 3.2 [facility] A/G RATIO 1.1 0.8 - 2.0 [facility] Calcium [Mass/volume] in Serum or Plasma 9.4 MG/DL 8.4 - 10.2 [facility] Bilirubin.total [Mass/volume] in Serum or Plasma <0.7 MG/DL 0.2 - 1.3 [facility] Alkaline phosphatase [Enzymatic activity/volume] in Serum or Plasma 115 U/L 38 - 126 [facility] Aspartate aminotransferase [Enzymatic activity/volume] in Serum or Plasma 18 U/L 5 - 40 [facility] Alanine aminotransferase [Enzymatic activity/volume] in Seru m or Plasma 16 U/L 7 - 56 [facility] Anion gap 3 in Serum or Plasma 15.0 mmol/L 8.0 - 16.0 [facility] AGE 54 yrs [facility] al NON-AA GFR 93 mL[facility] AMER GFR 113 mL/min [facility] Ho spital Male GFR In terprentation 20-49 yrs >60 mL/min Normal 50-59 yrs >56 mL/min Normal 60-69 yrs >49 mL/min Normal 70-79yrs >42 mL/min Normal 80 and above >35 mL/min Normal Female GFR Interpretation 20-39 yrs >60 mL/min Normal 40-49 yrs >58 mL/min Normal 50-59 yrs >51 mL/min Normal 60-69 yrs >45 mL/min Normal 70-79 yrs >39 mL/min Normal 80 and above >32 mL/min Normal ID Date Data Source [id number] 11/08/2019 07:56:00 PM EDT [facility] Name Value Range Interpretation Code Description Data Shelby rce(s) Supporting Document(s) Hemoglobin A1c/Hemoglobin.total in Blood 8.3 % 4.4 - 6.1 H [facility] {A1]{HB] ID Date Data Source [id number] 08/30/2019 01:45:00 PM EST [facility] ([facility]) Name Value Range Interpretation Code Description Data Shelby rce(s) Supporting Document(s) Creatinine, Urine 101.0 mg/dL [facility] [place]/Creat Ratio 2920.7 MCG/MG 0.0-30.0 [facility] ([facility]) THE [employer] STATES THAT MICROALBUMINURIA IS PRESENT IF THE MICROALBUMIN/CREATININE RATIO EXCEEDS 30 MCG/MG. THE THRESHOLD FOR CLINICAL ALBUMINURIA IS REACHED AT 300 MCG/MG. THE CLASSIFICATION OF A PATIENT SHOULD BE BASED UPON AT LEAST 2 OF 3 ABNORMAL RESULTS ON SPECIMENS COLLECTED WITHIN A 3 TO 6 MONTH TIME FRAME. Malb Urine Siemens 2950.0 mg/L [facility] ([facility]) ID Date Data Source [id number] 06/25/2019 08:22:00 AM EST [facility] Greater than 100,000 CFU/MLStaph spp, St rep spp, Corynebacterium sppProbable contaminants no senst done Name Value Range Interpretation Code Description Data Shelby rce(s) Supporting Document(s) ID Date Data Source [id number] 06/23/2019 02:23:00 PM EST [facility] ([facility]) Name Value Range Interpretation Code Description Data Shelby rce(s) Supporting Document(s) Bacteria identified in Urine by Culture Laboratory test result [facility] ([facility]) Greater than 100,000 CFU/ML Staph spp, Strep spp, Corynebacterium spp Probable contaminants no senst done ID Date Data Source [id number] 06/23/2019 02:23:00 PM EST [facility] ([facility]) Name Value Range Interpretation Code Description Data Shelby rce(s) Supporting Document(s) [facility] Urine Culture Laboratory test result [facility] ([facility]) Is patient fasting? N {SOURCE: Random Void~NURSE COLLECTED? N ID Date Data Source [id number] 06/23/2019 02:23:00 PM EST [facility] ([facility]) Name Value Range Interpretation Code Description Data Shelby rce(s) Supporting Document(s) Urinalysis Laboratory test result [facility] ([facility]) Is patient fasting? N {SOURCE: Random Void~NURSE COLLECTED? N Source Laboratory test result [facility] ([facility]) Is patient fasting? N {SOURCE: Random Void~NURSE COLLECTED? N Color Laboratory test result [facility] ([facility]) Is patient fasting? N {SOURCE: Random Void~NURSE COLLECTED? N Clarity Laboratory test result [facility] ([facility]) Is patient fasting? N {SOURCE: Random Void~NURSE COLLECTED? N Spec [place] 1.010 1.001-1.030 [facility] ([facility]) Is patient fasting? N {SOURCE: Random Void~NURSE COLLECTED? N pH 5 5-9 [facility] ([facility]) Is patient fasting? N {SOURCE: Random Void~NURSE COLLECTED? N Bilirubin Laboratory test result [facility] ([facility]) Is patient fasting? N {SOURCE: Random Void~NURSE COLLECTED? N Glucose 1000 Abnormal (applies to non-numeric res ults) [facility] ([facility]) Is patient fasting? N {SOURCE: Random Void~NURSE COLLECTED? N Ketone Laboratory test result [facility] ([facility]) Is patient fasting? N {SOURCE: Random Void~NURSE COLLECTED? N Protein 100 Abnormal (applies to non-numeric res ults) [facility] ([facility]) Is patient fasting? N {SOURCE: Random Void~NURSE COLLECTED? N Nitrite Laboratory test result [facility] ([facility]) Is patient fasting? N {SOURCE: Random Void~NURSE COLLECTED? N Blood 25 Abnormal (applies to non-numeric res ults) [facility] ([facility]) Is patient fasting? N {SOURCE: Random Void~NURSE COLLECTED? N Urobilinogen Laboratory test result [facility] ([facility]) Is patient fasting? N {SOURCE: Random Void~NURSE COLLECTED? N Leuk Est 25 [facility] ([facility]) Is patient fasting? N {SOURCE: Random Void~NURSE COLLECTED? N RBC Laboratory test result [facility] ([facility]) Is patient fasting? N {SOURCE: Random Void~NURSE COLLECTED? N WBC Laboratory test result Abnormal (applies to non -numeric results) [facility] ([facility]) Is patient fasting? N {SOURCE: Random Void~NURSE COLLECTED? N Microscopic Laboratory test result [facility] ([facility]) Is patient fasting? N {SOURCE: Random Void~NURSE COLLECTED? N Epithelial Laboratory test result Abnormal (applies to non -numeric results) [facility] ([facility]) Is patient fasting? N {SOURCE: Random Void~NURSE COLLECTED? N Bacteria Laboratory test result [facility] ([facility]) Is patient fasting? N {SOURCE: Random Void~NURSE COLLECTED? N Yeast Laboratory test result Abnormal (applies to non -numeric results) [facility] ([facility]) Is patient fasting? N {SOURCE: Random Void~NURSE COLLECTED? N ID Date Data Source [id number] 06/23/2019 02:23:00 PM EST [facility] ([facility]) Name Value Range Interpretation Code Description Data Shelby rce(s) Supporting Document(s) Thyrotropin [Units/volume] in Serum or Plasma 3.88 uIU/mL 0.47-5.01 [facility] ([facility]) Is patient fasting? N {SOURCE: Random Void~NURSE COLLECTED? N Hemoglobin A1c/Hemoglobin.total in Blood 11.4 % 4.4-6.1 Above high normal [facility] ([facility]) Is patient fasting? N {SOURCE: Random Void~NURSE COLLECTED? N ID Date Data Source [id number] 06/23/2019 02:23:00 PM EST [facility] ([facility]) Name Value Range Interpretation Code Description Data Shelby rce(s) Supporting Document(s) Comprehensive Metabo Laboratory test result [facility] ([facility]) Is patient fasting? N {SOURCE: Random Void~NURSE COLLECTED? N Chloride 93 meq/L 98-107 Below low normal [facility] ( [facility]) Is patient fasting? N {SOURCE: Random Void~NURSE COLLECTED? N Potassium 5.1 meq/L 3.6-5.0 Above high normal [facility] ([facility]) Is patient fasting? N {SOURCE: Random Void~NURSE COLLECTED? N Sodium 132 meq/L 134-153 Below low normal [facility] ( [facility]) Is patient fasting? N {SOURCE: Random Void~NURSE COLLECTED? N Co2 24 meq/L 22-30 [facility] ([facility]) Is patient fasting? N {SOURCE: Random Void~NURSE COLLECTED? N Glucose 294 mg/dL 65-110 Above high normal [facility] ([facility]) Is patient fasting? N {SOURCE: Random Void~NURSE COLLECTED? N BUN 19 mg/dL 7-21 [facility] ([facility]) Is patient fasting? N {SOURCE: Random Void~NURSE COLLECTED? N BUN/Creat 24 8-27 [facility] ([facility]) Is patient fasting? N {SOURCE: Random Void~NURSE COLLECTED? N Total Protein 6.7 g/dL 6.3-8.2 [facility] ([facility]) Is patient fasting? N {SOURCE: Random Void~NURSE COLLECTED? N Creatinine 0.8 mg/dL 0.7-1.5 [facility] ([facility]) Is patient fasting? N {SOURCE: Random Void~NURSE COLLECTED? N A/G Ratio 1.1 0.8-2.0 [facility] ([facility]) Is patient fasting? N {SOURCE: Random Void~NURSE COLLECTED? N Albumin 3.5 g/dL 3.9-5.0 Below low normal [facility] ( [facility]) Is patient fasting? N {SOURCE: Random Void~NURSE COLLECTED? N Globulin 3.2 GM/DL 2.4-3.2 [facility] ([facility]) Is patient fasting? N {SOURCE: Random Void~NURSE COLLECTED? N Total Bili Laboratory test result 0.2-1.3 [facility] ([facility]) Is patient fasting? N {SOURCE: Random Void~NURSE COLLECTED? N Calcium 9.7 mg/dL 8.4-10.2 [facility]) Is patient fasting? N {SOURCE: Random Void~NURSE COLLECTED? N Alkaline Phos 106 U/L 38-126 [facility] ([facility]) Is patient fasting? N {SOURCE: Random Void~NURSE COLLECTED? N Sgot/Ast 21 U/L 5-40 [facility] ([facility]) Is patient fasting? N {SOURCE: Random Void~NURSE COLLECTED? N SGPT/Alt 24 U/L 7-56 [facility] ([facility]) Is patient fasting? N {SOURCE: Random Void~NURSE COLLECTED? N Anion Gap 15.0 mmol/L 8.0-16.0 [facility] ([facility]) Is patient fasting? N {SOURCE: Random Void~NURSE COLLECTED? N Non-Aa GFR Laboratory test result [facility] ([facility]) Is patient fasting? N {SOURCE: Random Void~NURSE COLLECTED? N Afr Amer GFR Laboratory test result [facility] ([facility]) Is patient fasting? N {SOURCE: Random Void~NURSE COLLECTED? N Age 54 yrs [facility] ([facility]) Is patient fasting? N {SOURCE: Random Void~NURSE COLLECTED? N ID Date Data Source [id number] 06/23/2019 02:23:00 PM EST [facility] ([facility]) Name Value Range Interpretation Code Description Data Shelby rce(s) Supporting Document(s) CBC No Diff Laboratory test result [facility] ([facility]) Is patient fasting? N {SOURCE: Random Void~NURSE COLLECTED? N RBC 4.78 10^6/uL 4.20-5.40 [facility] ([facility]) Is patient fasting? N {SOURCE: Random Void~NURSE COLLECTED? N Hemoglobin 12.8 g/dL 12.0-16.0 [facility] ([facility]) Is patient fasting? N {SOURCE: Random Void~NURSE COLLECTED? N WBC 10.0 10^3/uL 4.2-11.0 [facility] ([facility]) Is patient fasting? N {SOURCE: Random Void~NURSE COLLECTED? N Hematocrit 40.5 % 37.0-47.0 [facility] [facility] Is patient fasting? N {SOURCE: Random Void~NURSE COLLECTED? N MCV 84.7 fL 81.0-101 MEDENT ([facility]) Is patient fasting? N {SOURCE: Random Void~NURSE COLLECTED? N MCH 26.8 pg 27.0-34.0 Below low normal MEDENT ( [facility]) Is patient fasting? N {SOURCE: Random Void~NURSE COLLECTED? N RDW 13.6 % 11.5-14.5 MEDENT ([facility]) Is patient fasting? N {SOURCE: Random Void~NURSE COLLECTED? N MCHC 31.6 g/dL 31.0-36.0 MEDENT ([facility]) Is patient fasting? N {SOURCE: Random Void~NURSE COLLECTED? N MPV 10.6 fL 7.4-10.4 Above high normal MEDENT ([facility]) Is patient fasting? N {SOURCE: Random Void~NURSE COLLECTED? N Platelets 382 10^3/uL 150-450 MEDENT ([facility]) Is patient fasting? N {SOURCE: Random Void~NURSE COLLECTED? N ID Date Data Source [id number] 06/28/2019 01:28:00 PM EST [facility] Name Value Range Interpretation Code Description Data Shelby rce(s) Supporting Document(s) [facility] URINE CULTURE [facility] _CULTURE URINE_ Result: [place] [address] CLIA# [id number] SEE SCANNED REPORT ID Date Data Source [id number] 06/23/2019 06:55:00 PM EST [facility] Name Value Range Interpretation Code Description Data Shelby rce(s) Supporting Document(s) URINALYSIS [facility] URINALYSIS SOURCE R [facility] COLOR yellow NORMAL: Yellow [facility] CLARITY cloudy NORMAL: Clear [facility] Specific gravity of Urine by Test strip 1.010 1.001 - 1.030 [facility] pH 5 5 - 9 [facility] Gl[facility] [Mass/volume] in Urine by Test strip 1000 NORMAL: Negat betsy [facility] Bilirubin.total [Presence] in Urine by Test strip NEG NORMAL: Negative [facility] Ketones [Presence] in Urine by Test strip NEG NORMAL: Negative [facility] Protein [Mass/volume] in Urine by Test strip 100 NORMAL: Negat betsy A [facility] Nitrite [Presence] in Urine by Test strip NEG NORMAL: Negative [facility] BLOOD 25 NORMAL: Negative [facility] Leukocyte esterase [Presence] in Urine by Test strip 25 MELLO L: Negative [facility] Urobilinogen [Mass/volume] in Urine by Test strip NOR less jaimee n 1.0 mg/dL [facility] MICROSCOPIC See Below [facility] ital WBC 15 - 20 NORMAL: NONE SEEN A [facility] Erythrocytes [#/volume] in Urine by Test strip 0 - 1 NORMAL: NON E SEEN [facility] EPITHELIAL MODERATE NORMAL: NONE SEEN A [facility] Bacteria [Presence] in Urine sediment by Light microscopy 1+ SMALL NORMAL: NONE SEEN [facility] YEAST Moderate A [facility] al ID Date Data Source [id number] 06/23/2019 06:39:00 PM [facility] Name Value Range Interpretation Code Description Data Shelby rce(s) Supporting Document(s) Thyrotropin [Units/volume] in Serum or Plasma by Detec tion limit <= 0.05 mIU/L 3.88 uIU/mL 0.47 - 5.01 [facility] ID Date Data Source [id number] 06/23/2019 06:30:00 PM [facility] Name Value Range Interpretation Code Description Data Shelby rce(s) Supporting Document(s) COMPREHENSIVE METABOLIC PANEL [facility] COMPREHENSIVE METABOLIC PANEL Sodium [Moles/volume] in Serum or Plasma 132 mEq/L 134 - 153 L [facility] Potassium [Moles/volume] in Serum or Plasma 5.1 mEq/L 3.6 - 5.0 H [facility] Chloride [Moles/volume] in Serum or Plasma 93 mEq/L 98 - 107 L [facility] Carbon dioxide, total [Moles/volume] in Serum or Plasma 24 MEQ/L 22 - 30 [facility] Glucose [Mass/volume] in Serum or Plasma 294 MG/DL 65 - 110 H [facility] BUN 19 MG/DL 7 - 21 [facility] Creatinine [Mass/volume] in Serum or Plasma 0.8 MG/DL 0.7 - 1.5 [facility] BUN/CREAT 24 8 - 27 [facility] al Protein [Mass/volume] in Serum or Plasma 6.7 G/DL 6.3 - 8.2 [facility] Albumin [Mass/volume] in Serum or Plasma 3.5 G/DL 3.9 - 5.0 L [facility] Globulin [Mass/volume] in Serum by calculation 3.2 GM/DL 2.4 - 3.2 [facility] A/G RATIO 1.1 0.8 - 2.0 [facility] Calcium [Mass/volume] in Serum or Plasma 9.7 MG/DL 8.4 - 10.2 [facility] Bilirubin.total [Mass/volume] in Serum or Plasma <0.7 MG/DL 0.2 - 1.3 [facility] Alkaline phosphatase [Enzymatic activity/volume] in Serum or Plasma 106 U/L 38 - 126 [facility] Aspartate aminotransferase [Enzymatic activity/volume] in Serum or Plasma 21 U/L 5 - 40 [facility] Alanine aminotransferase [Enzymatic activity/volume] in Seru m or Plasma 24 U/L 7 - 56 [facility] Anion gap 3 in Serum or Plasma 15.0 mmol/L 8.0 - 16.0 [facility] AGE 54 yrs [facility] NON-AA GFR >60 mL/min [facility] ital AFR AMER GFR >60 mL/min [facility] Male GFR In terprentation 20-49 yrs >60 mL/min Normal 50-59 yrs >56 mL/min Normal 60-69 yrs >49 mL/min Normal 70-79yrs >42 mL/min Normal 80 and above >35 mL/min Normal Female GFR Interpretation 20-39 yrs >60 mL/min Normal 40-49 yrs >58 mL/min Normal 50-59 yrs >51 mL/min Normal 60-69 yrs >45 mL/min Normal 70-79 yrs >39 mL/min Normal 80 and above >32 mL/min Normal ID Date Data Source [id number] 06/23/2019 06:30:00 PM EST [facility] Name Value Range Interpretation Code Description Data Shelby rce(s) Supporting Document(s) Hemoglobin A1c/Hemoglobin.total in Blood 11.4 % 4.4 - 6.1 H [facility] {A1]{HB] ID Date Data Source [id number] 06/23/2019 06:08:00 PM EST [facility] Name Value Range Interpretation Code Description Data Shelby rce(s) Supporting Document(s) CBC NO DIFF [facility] ital COMPLETE BLOOD COUNT Leukocytes [#/volume] in Blood by Automated count 10.0 10^3/uL 4.2 - 11.0 [facility] Erythrocytes [#/volume] in Blood by Automated count 4.78 10^6/uL 4. 20 - 5.40 [facility] Hemoglobin [Mass/volume] in Blood 12.8 g/dL 12.0 - 16.0 [facility] Hematocrit [Volume Fraction] of Blood by Automated count 40.5 % 3 7.0 - 47.0 [facility] Erythrocyte mean corpuscular volume [Entitic volume] by Auto mated count 84.7 fL 81.0 - 101 [facility] Erythrocyte mean corpuscular hemoglobin [Entitic mass] by Automated count 26.8 pg 27.0 - 34.0 L [facility] Erythrocyte mean corpuscular hemoglobin concentration [Mass/volume] by Automated count 31.6 g/dL 31.0 - 36.0 [facility] Erythrocyte distribution width [Ratio] by Automated count 13.6 % 11.5 - 14.5 [facility] Platelets [#/volume] in Blood by Automated count 382 10^3/uL 150 - 45 0 [facility] Platelet mean volume [Entitic volume] in Blood by Automated count 10.6 fL 7.4 - 10.4 H [facility] Procedure Social History Code Duration Value Status Description Data Source(s ) Smoking 06/27/2020 12:00:00 AM EST Never Smoker completed Never S moker eCW1 ([facility]) Smoking 06/27/2020 12:00:00 AM EST Never Smoker completed Never S moker eCW1 ([facility]) Smoking 06/05/2020 12:00:00 AM EST Never Smoker completed Never S moker eCW1 ([facility]) Smoking 06/05/2020 12:00:00 AM EST Never Smoker completed Never S moker eCW1 ([facility]) Smoking 06/05/2020 12:00:00 AM EST Never Smoker completed Never S moker eCW1 ([facility]) Smoking 06/05/2020 12:00:00 AM EST Never Smoker completed Never S moker eCW1 ([facility]) Smoking 04/25/2020 12:00:00 AM EDT Never Smoker completed Never S moker eCW1 ([facility]) Smoking 04/25/2020 12:00:00 AM EDT Never Smoker completed Never S moker eCW1 ([facility]) Smoking 04/25/2020 12:00:00 AM EDT Never Smoker completed Never S moker eCW1 ([facility]) Smoking 04/25/2020 12:00:00 AM EDT Never Smoker completed Never S moker eCW1 ([facility]) Smoking 04/25/2020 12:00:00 AM EDT Never Smoker completed Never S moker eCW1 ([facility]) Smoking 04/11/2020 12:00:00 AM EDT Never Smoker completed Never S moker eCW1 ([facility]) Smoking 04/11/2020 12:00:00 AM EDT Never Smoker completed Never S moker eCW1 ([facility]) Smoking 04/11/2020 12:00:00 AM EDT Never Smoker completed Never S moker eCW1 ([facility]) Smoking 04/11/2020 12:00:00 AM EDT Never Smoker completed Never S moker eCW1 ([facility]) Smoking 01/18/2020 12:00:00 AM EDT Never Smoker completed Never S moker eCW1 ([facility]) Smoking 01/18/2020 12:00:00 AM EDT Never Smoker completed Never S moker eCW1 ([facility]) Smoking 01/18/2020 12:00:00 AM EDT Never Smoker completed Never S moker eCW1 ([facility]) Smoking 01/11/2020 12:00:00 AM EDT Never Smoker completed Never S moker eCW1 ([facility]) Smoking 01/11/2020 12:00:00 AM EDT Never Smoker completed Never S moker eCW1 ([facility]) Smoking 01/02/2020 12:00:00 AM EDT Never Smoker completed Never S moker eCW1 ([facility]) Smoking 12/15/2019 12:00:00 AM EDT Never Smoker completed Never S moker eCW1 ([facility]) Smoking 12/12/2019 12:00:00 AM EDT Never Smoker completed Never S moker eCW1 ([facility]) Smoking 12/05/2019 12:00:00 AM EDT Never Smoker completed Never S moker eCW1 ([facility]) Smoking 12/05/2019 12:00:00 AM EDT Never Smoker completed Never S moker eCW1 ([facility]) Smoking 12/05/2019 12:00:00 AM EDT Never Smoker completed Never S moker eCW1 ([facility]) Smoking 11/23/2019 12:00:00 AM EDT Never Smoker completed Never S moker eCW1 ([facility]) Vital Signs ID Date Data Source UNK Name Value Range Interpretation Code Description Data Source(s) Diastolic blood pressure 62 mm[Hg] 62 mm[Hg] eCW1 ([facility]) Systolic blood pressure 137 mm[Hg] 137 mm[Hg] e CW1 ([facility]) Body temperature 97.6 [degF] 97.6 [degF] eCW1 ( [facility]) Respiratory rate 18 /min 18 /min eCW1 (Replaced by [facility]) Heart rate 95 /min 95 /min eCW1 ([facility]) Body mass index (BMI) [Ratio] 46.09 kg/m2 46.09 kg/m2 eCW1 ([facility]) Body height 62 [in_i] 62 [in_i] eCW1 ([facility]) Body weight kg eCW1 ([facility]) Body weight 252 [lb_av] 252 [lb_av] [facility] Diastolic blood pressure 77 mm[Hg] 77 mm[Hg] eCW1 ([facility]) Systolic blood pressure 170 mm[Hg] 170 mm[Hg] e CW1 ([facility]) Body temperature 97.2 [degF] 97.2 [degF] eCW1 ( [facility]) Respiratory rate 18 /min 18 /min eCW1 (Replaced by [facility]) Heart rate 81 /min 81 /min eCW1 ([facility]) Body mass index (BMI) [Ratio] 46.09 kg/m2 46.09 kg/m2 eCW1 ([facility]) Body height 62 [in_i] 62 [in_i] eCW1 ([facility]) Body weight kg eCW1 ([facility]) Body weight 252 [lb_av] 252 [lb_av] eCW[facility] Diastolic blood pressure 86 mm[Hg] 86 mm[Hg] eCW1 ([facility]) Systolic blood pressure 194 mm[Hg] 194 mm[Hg] e CW1 ([facility]) Body temperature 97.0 [degF] 97.0 [degF] eCW1 ( [facility]) Respiratory rate 17 /min 17 /min eCW1 (Replaced by [facility]) Heart rate 96 /min 96 /min eCW1 ([facility]) Body mass index (BMI) [Ratio] 46.09 kg/m2 46.09 kg/m2 W1 ([facility]) Body height 62 [in_i] 62 [in_i] eCW1 ([facility]) Body weight kg eCW1 ([facility]) Body weight 252 [lb_av] 252 [lb_av] eCW[facility] Diastolic blood pressure 68 mm[Hg] 68 mm[Hg] eCW1 ([facility]) Systolic blood pressure 131 mm[Hg] 131 mm[Hg] e CW1 ([facility]) Body temperature 97.2 [degF] 97.2 [degF] eCW1 ( [facility]) Respiratory rate 18 /min 18 /min eCW1 (Replaced by [facility]) Heart rate 80 /min 80 /min eCW1 ([facility]) Body mass index (BMI) [Ratio] 46.09 kg/m2 46.09 kg/m2 eCW1 ([facility]) Body height 62 [in_i] 62 [in_i] eCW1 ([facility]) Body weight kg eCW1 ([facility]) Body weight 252 [lb_av] 252 [lb_av] eCW1 [facility] Body surface area Derived from formula 2.13 m2 2.13 m2 MEDENT ([facility]) Body mass index (BMI) [Ratio] 44.6 kg/m2 44.6 k g/m2 MED[facility] ([facility]) Body height 63 [in_i] 63 [in_i] [facility] 5'3" Body weight 114.307 kg 114.307 kg MEDENT ([facility]) Body weight 252.00 [lb_av] 252.00 [lb_av] MEDEN T ([facility]) Stated weight Oxygen saturation in Arterial blood by Pulse oximetry 98 % 98 % MEDENT ([facility]) Respiratory rate 16 /min 16 /min MED[facility] ( [facility]) Body temperature 97.5 [degF] 97.5 [degF] MED[facility] ([facility]) Heart rate 97 /min 97 /min [facility] ([facility]) Diastolic blood pressure 70 mm[Hg] 70 mm[Hg] MEDENT ([facility]) Systolic blood pressure 130 mm[Hg] 130 mm[Hg] M EDENT ([facility]) Body height 62 [in_i] 62 [in_i] eCW1 ([facility]) Body weight kg eCW1 ([facility]) Body weight 252 [lb_av] 252 [lb_av] eCW1 [facility] Diastolic blood pressure 77 mm[Hg] 77 mm[Hg] eCW1 ([facility]) Systolic blood pressure 157 mm[Hg] 157 mm[Hg] e CW1 ([facility]) Body temperature 97.0 [degF] 97.0 [degF] eCW1 ( [facility]) Respiratory rate 18 /min 18 /min eCW1 ([facility]placed by [facility]) Heart rate 90 /min 90 /min eCW1 ([facility]) Body mass index (BMI) [Ratio] 46.09 kg/m2 46.09 kg/m2 eCW1 ([facility]) Diastolic blood pressure 75 mm[Hg] 75 mm[Hg] eCW1 ([facility]) Systolic blood pressure 150 mm[Hg] 150 mm[Hg] e CW1 ([facility]) Body temperature 96.5 [degF] 96.5 [degF] eCW1 ( [facility]) Respiratory rate 19 /min 19 /min eCW1 ([facility]placed by [facility]) Heart rate 118 /min 118 /min eCW1 ([facility]) Body mass index (BMI) [Ratio] 46.09 kg/m2 46.09 kg/m2 eCW1 ([facility]) Body height 62 [in_i] 62 [in_i] eCW1 ([facility]) Body weight kg eCW1 ([facility]) Body weight 252 [lb_av] 252 [lb_av] eCW1 [facility] Diastolic blood pressure 72 mm[Hg] 72 mm[Hg] eCW1 ([facility]) Systolic blood pressure 130 mm[Hg] 130 mm[Hg] e CW1 ([facility]) Body mass index (BMI) [Ratio] 46.09 kg/m2 46.09 kg/m2 eCW1 ([facility]) Body height 62 [in_i] 62 [in_i] eCW1 ([facility]) Body weight 252.0 [lb_av] 252.0 [lb_av] eCW1 ([facility]) Diastolic blood pressure 78 mm[Hg] 78 mm[Hg] eCW1 ([facility]) Systolic blood pressure 132 mm[Hg] 132 mm[Hg] e CW1 ([facility]) Body temperature 97.4 [degF] 97.4 [degF] eCW1 ( [facility]) Respiratory rate 20 /min 20 /min eCW1 ([facility]placed by [facility]) Heart rate 104 /min 104 /min eCW1 ([facility]) Body mass index (BMI) [Ratio] 47.73 kg/m2 47.73 kg/m2 eCW1 ([facility]) Body height 62 [in_i] 62 [in_i] eCW1 ([facility]) Body weight kg eCW1 ([facility]) Body weight 261 [lb_av] 261 [lb_av] eCW1 [facility] Diastolic blood pressure 78 mm[Hg] 78 mm[Hg] eCW1 ([facility]) Systolic blood pressure 166 mm[Hg] 166 mm[Hg] e CW1 ([facility]) Body temperature 97.4 [degF] 97.4 [degF] eCW1 ( [facility]) Respiratory rate 16 /min 16 /min eCW1 ([facility]placed by [facility]) Heart rate 98 /min 98 /min eCW1 ([facility]) Body mass index (BMI) [Ratio] 47.73 kg/m2 47.73 kg/m2 W1 ([facility]) Body height 62 [in_i] 62 [in_i] eCW1 ([facility]) Body weight kg eCW1 ([facility]) Body weight 261 [lb_av] 261 [lb_av] eCW[facility] Systolic blood pressure 168 mm[Hg] 168 mm[Hg] M EDENT ([facility]) Body surface area Derived from formula 2.17 m2 2.17 m2 [facility] ([facility]) Body mass index (BMI) [Ratio] 46.6 kg/m2 46.6 k g/m2 [facility] ([facility]) Body height 63 [in_i] 63 [in_i] [facility] ([facility]) 5'3" Body weight 119.297 kg 119.297 kg MEDENT ([facility]) Body weight 263.00 [lb_av] 263.00 [lb_av] MEDEN T ([facility]) Oxygen saturation in Arterial blood by Pulse oximetry 97 % 97 % MED[facility] ([facility]) Respiratory rate 16 /min 16 /min MED[facility] ( [facility]) Body temperature 97.8 [degF] 97.8 [degF] MEDENT ([facility]) Heart rate 97 /min 97 /min [facility] ([facility]) Diastolic blood pressure 62 mm[Hg] 62 mm[Hg] [facility] ([facility]) Body surface area 2.17 m2 2.17 m2 [facility] ([facility]) Diastolic blood pressure 85 mm[Hg] 85 mm[Hg] eCW1 ([facility]) Systolic blood pressure 191 mm[Hg] 191 mm[Hg] e CW1 ([facility]) Body temperature 98.5 [degF] 98.5 [degF] eCW1 ( [facility]) Respiratory rate 20 /min 20 /min eCW1 ([facility]placed by [facility]) Heart rate 93 /min 93 /min eCW1 ([facility]) Body mass index (BMI) [Ratio] 48.10 kg/m2 48.10 kg/m2 [facility] ([facility]) Body height 62 [in_i] 62 [in_i] eCW1 ([facility]) Body weight kg eCW1 ([facility]) Body weight 263 [lb_av] 263 [lb_av] eCW1 [facility] Diastolic blood pressure 78 mm[Hg] 78 mm[Hg] eCW1 ([facility]) Systolic blood pressure 171 mm[Hg] 171 mm[Hg] e CW1 ([facility]) Body temperature 97.4 [degF] 97.4 [degF] eCW1 ( [facility]) Respiratory rate 20 /min 20 /min eCW1 ([facility]placed by [facility]) Heart rate 90 /min 90 /min eCW1 ([facility]) Body mass index (BMI) [Ratio] 48.10 kg/m2 48.10 kg/m2 eCW1 ([facility]) Body height 62 [in_i] 62 [in_i] eCW1 ([facility]) Body weight kg eCW1 ([facility]) Body weight 263 [lb_av] 263 [lb_av] eCW1 [facility] Body surface area 2.16 m2 2.16 m2 [facility] ([facility]) Body mass index (BMI) [Ratio] 45.9 kg/m2 45.9 k g/m2 [facility] ([facility]) Body height 63 [in_i] 63 [in_i] MED[facility] ([facility]) 5'3" Body weight 117.482 kg 117.482 kg MEDENT ([facility]) Body weight 259.00 [lb_av] 259.00 [lb_av] MEDEN T ([facility]) Oxygen saturation in Arterial blood by Pulse oximetry 97 % 97 % [facility] ([facility]) Respiratory rate 18 /min 18 /min [facility] ( [facility]) Body temperature 97.9 [degF] 97.9 [degF] MEDENT ([facility]) Heart rate 90 /min 90 /min MED[facility] ([facility]) Diastolic blood pressure 80 mm[Hg] 80 mm[Hg] MEDENT ([facility]) Systolic blood pressure 140 mm[Hg] 140 mm[Hg] M EDENT ([facility]) Body mass index (BMI) [Ratio] 48.10 kg/m2 48.10 kg/m2 eCW1 ([facility]) Body height 62 [in_us] 62 [in_us] eCW1 ([facility]) Body weight Measured [lb_av] eCW1 ([facility]) Diastolic blood pressure 79 mm[Hg] 79 mm[Hg] eCW1 ([facility]) Systolic blood pressure 196 mm[Hg] 196 mm[Hg] e CW1 ([facility]) Body temperature 97.9 [degF] 97.9 [degF] eCW1 ( [facility]) Respiratory rate 20 /min 20 /min eCW1 ([facility]placed by [facility]) Heart rate 89 /min 89 /min eCW1 ([facility]) Body mass index (BMI) [Ratio] 48.10 kg/m2 48.10 kg/m2 eCW1 ([facility]) Body height 62 [in_us] 62 [in_us] eCW1 ([facility]) Body weight Measured 263 [lb_av] 263 [lb_av] eC W1 ([facility]) Body mass index (BMI) [Ratio] 48.10 kg/m2 48.10 kg/m2 eCW1 ([facility]) Body height 62 [in_us] 62 [in_us] eCW1 ([facility]) Body weight Measured 263 [lb_av] 263 [lb_av] eC W1 ([facility]) Diastolic blood pressure 99 mm[Hg] 99 mm[Hg] eCW1 ([facility]) Systolic blood pressure 145 mm[Hg] 145 mm[Hg] e CW1 ([facility]) Body temperature 97.4 [degF] 97.4 [degF] eCW1 ( [facility]) Respiratory rate 16 /min 16 /min eCW1 ([facility]placed by [facility]) Heart rate 98 /min 98 /min eCW1 ([facility]) Diastolic blood pressure 70 mm[Hg] 70 mm[Hg] eCW1 ([facility]) Systolic blood pressure 159 mm[Hg] 159 mm[Hg] e CW1 ([facility]) Body temperature 96.5 [degF] 96.5 [degF] eCW1 ( [facility]) Respiratory rate 18 /min 18 /min eCW1 (Replaced by [facility]) Heart rate 91 /min 91 /min eCW1 ([facility]) Body mass index (BMI) [Ratio] 48.10 kg/m2 48.10 kg/m2 eCW1 ([facility]) Body height 62 [in_us] 62 [in_us] eCW1 ([facility]) Body weight Measured 263 [lb_av] 263 [lb_av] eC W1 ([facility]) Diastolic blood pressure 91 mm[Hg] 91 mm[Hg] eCW1 ([facility]) Systolic blood pressure 142 mm[Hg] 142 mm[Hg] e CW1 ([facility]) Body temperature 97.8 [degF] 97.8 [degF] eCW1 ( [facility]) Respiratory rate 18 /min 18 /min eCW1 (Replaced by [facility]) Heart rate 98 /min 98 /min eCW1 ([facility]) Body mass index (BMI) [Ratio] 48.10 kg/m2 48.10 kg/m2 eCW1 ([facility]) Body height 62 [in_us] 62 [in_us] eCW1 ([facility]) Body weight Measured 263 [lb_av] 263 [lb_av] eC W1 ([facility]) Diastolic blood pressure 86 mm[Hg] 86 mm[Hg] eCW1 ([facility]) Systolic blood pressure 184 mm[Hg] 184 mm[Hg] e CW1 ([facility]) Body temperature 97.8 [degF] 97.8 [degF] eCW1 ( [facility]) Respiratory rate 18 /min 18 /min eCW1 (Replaced by [facility]) Heart rate 96 /min 96 /min eCW1 ([facility]) Body mass index (BMI) [Ratio] 48.83 kg/m2 48.83 kg/m2 eCW1 ([facility]) Body height 62 [in_us] 62 [in_us] eCW1 ([facility]) Body weight Measured 267 [lb_av] 267 [lb_av] eC W1 ([facility]) Oxygen saturation in Arterial blood by Pulse oximetry 97 % 97 % [facility] ([facility]) Body mass index (BMI) [Ratio] 48.2 kg/m2 48.2 k g/m2 [facility] ([facility]) Body weight 263.38 [lb_av] 263.38 [lb_av] MEDEN T ([facility]) Body height 62 [in_i] 62 [in_i] [facility] ([facility]) 5'2" Heart rate 95 /min 95 /min [facility] ([facility]) Diastolic blood pressure 82 mm[Hg] 82 mm[Hg] MED[facility] ([facility]) Systolic blood pressure 130 mm[Hg] 130 mm[Hg] M EDENT ([facility]) Diastolic blood pressure 84 mm[Hg] 84 mm[Hg] eCW1 ([facility]) Systolic blood pressure 188 mm[Hg] 188 mm[Hg] e CW1 ([facility]) Body temperature 98.1 [degF] 98.1 [degF] eCW1 ( [facility]) Respiratory rate 20 /min 20 /min eCW1 (Replaced by [facility]) Heart rate 89 /min 89 /min eCW1 ([facility]) Body mass index (BMI) [Ratio] 48.83 kg/m2 48.83 kg/m2 eCW1 ([facility]) Body height 62 [in_us] 62 [in_us] eCW1 ([facility]) Body weight Measured [lb_av] eCW1 ([facility]) Body surface area 2.16 m2 2.16 m2 MED[facility] ([facility]) Body mass index (BMI) [Ratio] 46.1 kg/m2 46.1 k g/m2 [facility] ([facility]) Body height 63 [in_i] 63 [in_i] [facility] ([facility]) 5'3" Body weight 117.936 kg 117.936 kg [facility] ([facility]) Body weight 260.00 [lb_av] 260.00 [lb_av] MEDEN T ([facility]) Oxygen saturation in Arterial blood by Pulse oximetry 94 % 94 % [facility] ([facility]) Respiratory rate 18 /min 18 /min [facility] ( [facility]) Body temperature 97.5 [degF] 97.5 [degF] [facility] ([facility]) Heart rate 82 /min 82 /min [facility] ([facility]) Diastolic blood pressure 68 mm[Hg] 68 mm[Hg] [facility] ([facility]) Systolic blood pressure 128 mm[Hg] 128 mm[Hg] M EDENT ([facility]) Body mass index (BMI) [Ratio] 48.83 kg/m2 48.83 kg/m2 eCW1 ([facility]) Body height 62 [in_us] 62 [in_us] eCW1 ([facility]) Body weight Measured 267 [lb_av] 267 [lb_av] eC W1 ([facility]) Diastolic blood pressure 78 mm[Hg] 78 mm[Hg] eCW1 ([facility]) Systolic blood pressure 180 mm[Hg] 180 mm[Hg] e CW1 ([facility]) Body temperature 96.8 [degF] 96.8 [degF] eCW1 ( [facility]) Respiratory rate 18 /min 18 /min eCW1 ([facility]placed by [facility]) Heart rate 94 /min 94 /min eCW1 ([facility]) Diastolic blood pressure 83 mm[Hg] 83 mm[Hg] eCW1 ([facility]) Systolic blood pressure 153 mm[Hg] 153 mm[Hg] e CW1 ([facility]) Body temperature 97.5 [degF] 97.5 [degF] eCW1 ( [facility]) Respiratory rate 16 /min 16 /min eCW1 (Replaced by [facility]) Heart rate 84 /min 84 /min eCW1 ([facility]) Body mass index (BMI) [Ratio] 48.83 kg/m2 48.83 kg/m2 eCW1 ([facility]) Body height 62 [in_us] 62 [in_us] eCW1 ([facility]) Body weight Measured 267 [lb_av] 267 [lb_av] eC W1 ([facility]) Diastolic blood pressure 85 mm[Hg] 85 mm[Hg] eCW1 ([facility]) Systolic blood pressure 183 mm[Hg] 183 mm[Hg] e CW1 ([facility]) Body temperature 96.7 [degF] 96.7 [degF] eCW1 ( [facility]) Respiratory rate 16 /min 16 /min eCW1 (Replaced by [facility]) Heart rate 83 /min 83 /min eCW1 ([facility]) Body mass index (BMI) [Ratio] 48.83 kg/m2 48.83 kg/m2 eCW1 ([facility]) Body height 62 [in_us] 62 [in_us] eCW1 ([facility]) Body weight Measured 267 [lb_av] 267 [lb_av] eC W1 ([facility]) Body surface area 2.19 m2 2.19 m2 [facility] ([facility]) Body mass index (BMI) [Ratio] 47.3 kg/m2 47.3 k g/m2 [facility] ([facility]) Body height 63 [in_i] 63 [in_i] [facility] ([facility]) 5'3" Body weight 121.168 kg 121.168 kg [facility] ([facility]) Body weight 267.12 [lb_av] 267.12 [lb_av] MEDEN T ([facility]) Oxygen saturation in Arterial blood by Pulse oximetry 97 % 97 % [facility] ([facility]) Respiratory rate 16 /min 16 /min [facility] ( [facility]) Body temperature 97.6 [degF] 97.6 [degF] [facility] ([facility]) Heart rate 87 /min 87 /min [facility] ([facility]) Diastolic blood pressure 82 mm[Hg] 82 mm[Hg] [facility] ([facility]) Systolic blood pressure 178 mm[Hg] 178 mm[Hg] M EDENT ([facility]) Diastolic blood pressure 80 mm[Hg] 80 mm[Hg] eCW1 ([facility]) Systolic blood pressure 162 mm[Hg] 162 mm[Hg] e CW1 ([facility]) Body temperature 97.9 [degF] 97.9 [degF] eCW1 ( [facility]) Respiratory rate 18 /min 18 /min eCW1 (Replaced by [facility]) Heart rate 88 /min 88 /min eCW1 ([facility]) Body mass index (BMI) [Ratio] 48.83 kg/m2 48.83 kg/m2 eCW1 ([facility]) Body height 62 [in_us] 62 [in_us] eCW1 ([facility]) Body weight Measured 267 [lb_av] 267 [lb_av] eC W1 ([facility]) ID Date Data Source [id number] 03/15/2020 09:18:00 AM EDT [facility] Name Value Range Interpretation Code Description Data Source(s) WEIGHT 114.4 kilos 114.4 kilos [facility] HEIGHT 152.4 centimeters 152.4 centimeters [facility] WEIGHT 115.6 kilos 115.6 kilos [facility] HEIGHT 152.4 centimeters 152.4 centimeters [facility] WEIGHT 115.9 kilos 115.9 [facility]ilos [facility] HEIGHT 152.4 centimeters 152.4 centimeters [facility] WEIGHT 115.1 kilos 115.1 kilos [facility] 152.4 centimeters 152.4 centimeters [facility] WEIGHT 116.8 kilos 116.8 kilos [facility] HEIGHT 157.48 centimeters 157.48 centimeter [facility] Patient Treatment Plan of Care Planned Activity Planned Date Details Description Data Source (s) Dicloxacillin 500 MG Oral Capsule 04/03/2020 12:00:00 AM EDT eCW1 ([facility]) Dicloxacillin 500 MG Oral Capsule 04/03/2020 12:00:00 AM EDT eCW1 ([facility]) Fluconazole 100 MG Oral Tablet 12/15/2019 12:00:00 AM EDT eCW1 ([facility]) Amoxicillin 875 MG / Clavulanate 125 MG Oral Tablet 12/15/19 20 12:00:00 AM EDT eCW1 ([facility]) terconazole 8 MG/ML Vaginal Cream 12/15/2019 12:00:00 AM EDT eCW1 ([facility])
[2020-07-17] MEDS ORDERED: LEVOTAB10 PO (18:49)
[2020-07-17] MEDS ORDERED: LOSA100T50 PO (18:49)
[2020-07-17] MEDS ORDERED: AMLO1TAB25 PO (18:49)
[2020-07-17] MEDS ORDERED: ASPI1TAB8 PO (18:49)
[2020-07-17] MEDS ORDERED: SPIR-10 PO (18:49)
[2020-07-17] MEDS ORDERED: GABA-282 PO (18:49)
[2020-07-17] MEDS ORDERED: GENTAMICIN SULF 80MG/2ML VIAL As Ordered ONE (19:07)
[2020-07-17] MEDS ORDERED: BUPIVACAINE HCL 0.5% 10ML VIAL As Ordered ONE (19:07)
[2020-07-17] MEDS ORDERED: LIDOCAINE 1% MDV 20ML VIAL As Ordered ONE (19:07)
[2020-07-17] MEDS ORDERED: dexameTHASONE 4 MG/ML 1ML VIAL (J1100 PER 1MG) As Ordered ONE (19:07)
[2020-07-17] MEDS ORDERED: PROHANCE 279.3MG/ML 15ML VIAL As Ordered ONE (19:22)
[2020-07-17] MEDS ORDERED: DEXTROSE 50% 50 ML SYRINGE IV PRN (19:45)
[2020-07-17] MEDS ORDERED: GLUCOSE 4GM CHEW TABLET PO PRN (19:45)
[2020-07-17] MEDS ORDERED: GLUCAGON INJ 1MG VIAL SC PRN (19:45)
--- NOTE | 2020-07-17 20:05 | HPEPDOC ---
[facility] Medical History & Physical Date of Admission Jul 17, 2020 Date of Service: Jul 17, 2020 History and Physical CHIEF COMPLAINT: left foot nonhealing ulcer with drainage, fever 101 HISTORY OF PRESENT ILLNESS: 55 y/o F w pmh dm, neuropathy, chronic plantar ulcers, om s/p b/l transmetatrsal amputations, right plantar diabetic nelson grade [address] August and , morbid obesity bmi 45, Osteomyelitis of right foot 1st metatarsal 2014 w group B strep and strep mitis,iddm, HTN< dyslipidemia, bipolar, MRSA carrier, chronic osteo right foot and ankle was seen by ID Dr. Thomas on 07/16/20 and found to have increasing bloody and malodorous drainage out of the left plantar foot with fever 101, started on levaquin. Blood work and wound cultures were taken in the office, and pt was called to come to the ER today for admission for sepsis wbc 18 for left foot diabetic infection r/o osteomyelitis. negative for covid -19. PAST MEDICAL HISTORY: dm, neuropathy, chronic plantar ulcers, om s/p b/l transmetatrsal amputations, right plantar diabetic nelson grade [address] August and , morbid obesity bmi 45, Osteomyelitis of right foot 1st metatarsal 2014 w group B strep and strep mitis,iddm, HTN< dyslipidemia, bipolar, MRSA carrier, chronic osteo right foot and ankle PAST SURGICAL HISTORY: b/l transmetatrsal amputation. toe amputations b/l feet, tubal ligation, csection, cholecystectomy, jaw surgery, removal of 2 embedded needles in right foot SOCIAL HISTORY: denies etoh, drug use. FAMILY HISTORY: Father: heart disease Mother: cancer ALLERGIES: Please see below. REVIEW OF SYSTEMS: 12point ROS negative aside from +findings on HPI HOME MEDICATIONS: Please see below. PHYSICAL EXAMINATION: VITAL SIGNS: seebelow GENERAL APPEARANCE: aaox 3 appears younger than stated age. no distress HEENT: moist mm PERRLA EOMI no jvd/thyromegaly/cervical LAD/carotid bruits CARDIOVASCULAR: S1S2 RRR LUNGS: AEBE CTAB ABDOMEN: obese soft nt nd +bs EXTREMITIES: b/l transmetatarsal amputation LABORATORY DATA: See below. IMAGING: INDICATION: L foot pain/drainage. COMPARISON: No comparison left foot radiographs.. TECHNIQUE: Four views. FINDINGS: Four views of the left foot demonstrate a prior transmetatarsal amputation of the forefoot. The entire 5th metatarsal has been removed. There is diffuse soft tissue swelling about the stump and midfoot. There is soft tissue emphysema in the medial soft tissues at midfoot level. There is a 2 cm focal deficit in the soft tissues adjacent to the remaining 1st metatarsal along the plantar aspect consistent with a large plantar ulcer. Plantar and Achilles calcaneal heel spurs are noted. There is some midfoot osteoarthritic change. No acute bony erosive changes are noted.. No fracture or subluxation is seen. No opaque foreign body noted. IMPRESSION: Diffuse soft tissue swelling. There is soft tissue emphysema in the swollen medial soft tissues at midfoot level. A 2 cm focal soft tissue ulcer is seen along the plantar aspect. Patient is status post transmetatarsal forefoot amputation. Osteoarthritic changes are noted. No acute erosive changes are seen. No opaque foreign body noted.. <Electronically signed by Fredo Sandhu > 07/17/20 1641 MICROBIOLOGY: Please see below. ASSESSMENT: 55 y/o F w pmh dm, neuropathy, chronic plantar ulcers, om s/p b/l transmetatrsal amputations, right plantar diabetic nelson grade [address] August and , morbid obesity bmi 45, Osteomyelitis of right foot 1st metatarsal 2015 w group B strep and strep mitis,iddm, HTN< dyslipidemia, bipolar, MRSA carrier, chronic osteo right foot and ankle was seen by ID Dr. Thomas on 07/16/20 and found to have increasing bloody and malodorous drainage out of the left plantar foot with fever 101, started on levaquin. Blood work and wound cultures were taken in the office, and pt was called to come to the ER today for admission for sepsis wbc 18 for left foot diabetic infection r/o osteomyelitis. Left foot diabetic medial plantar infection with chronic 2 cm diabetic foot plantar -wound cx obtained in ID office on 07/16/20 -Dr Alicea consulted for debridement and surgical cultures to rule out o steomyelitis -MRI foot r/o osteomyelitis ordered with pending result -empiric IV vancomycin to be dosed by pharmacy and iv levaquin while npo. -npo -ID consult on (not available on Thursday) -h/o mrsa nasal carrier -contact isolation Preoperative medical clearance -pt is medically optimized. -She denies any acute cardiac ischemic complaints, and with low risk surgery, pt has low risk of cardiovascular event. DM2 w neuropathy -consistent carbs diet after surgery, i/o, fingersticks w coverage while npo, hypoglycemic protocol -a1c in am morbid obesity bmi 45 -check lipid panel in am Metabolic syndrome -dm, htn, obesity, dylipidemia: optimize medical therapy -weight loss as outpt -bariatric surgical referral as outpt HTN -npo -resume home meds postop dyslipidemia -npo -resume home meds postop -check lipid panel in am bipolar disorder -npo -resume home meds postop MRSA carrier -contact precautions code: full code. dvt prophylaxis: held due to planned surgery. Vital Signs Vital Signs Date Time Temp Pulse Resp B/P (MAP) Pulse Ox O2 Delivery O2 Flow Rate FiO2 07/17/20 16:10 07/17/20 16:10 99.8 07/17/20 14:50 101 20 98 Room Air Laboratory Data Labs 24H Laboratory Tests 2 07/17/20 15:39: Anion Gap 7L, Glomerular Filtration Rate 57.7, Lactic Acid Level 2.0, Calcium Level 8.7, C-Reactive Protein, Quantitative 31.80H 07/17/20 16:04: Immature Granulocyte % (Auto) 3.6H, Neutrophils (%) (Auto) 70.4H, Lymphocytes (%) (Auto) 16.9L, Monocytes (%) (Auto) 8.1H, Eosinophils (%) (Auto) 0.6, Basophils (%) (Auto) 0.4, Neutrophils # (Auto) 12.8H, Lymphocytes # (Auto) 3.1, Monocytes # (Auto) 1.5H, Eosinophils # (Auto) 0.1, Basophils # (Auto) 0.1, Nucleated Red Blood Cells % (auto) 0.0, Erythrocyte Sedimentation Rate > 140H, Coronavirus (COVID-19)(PCR) NEGATIVE, Influenza Type A (RT-PCR) NEGATIVE, Influenza Type B (RT-PCR) NEGATIVE, Respiratory Syncytial Virus (PCR) NEGATIVE CBC/BMP Laboratory Tests 07/17/20 15:39 07/17/20 16:04 Microbiology Microbiology 07/17/20 Gram Stain, Received Pending 07/17/20 Wound Culture, Received Pending 07/17/20 Blood Culture, Received Pending 07/17/20 Blood Culture, Received Pending Home Medications Scheduled Amlodipine Besylate (Amlodipine Besylate) 10 Mg Tablet, 10 MG PO DAILY Aspirin (Aspirin EC) 81 Mg Tablet.dr, 81 MG PO DAILY Atorvastatin Calcium (Atorvastatin Calcium) 40 Mg Tab, 40 MG PO QHS Dulaglutide (Trulicity) 1.5 Mg/0.5 Ml Pen.injctr, 1.5 MG SC QWEEK SATURDAYS Duloxetine HCl (Duloxetine HCl) 60 Mg Capsule.dr, 60 MG PO DAILY Gabapentin (Gabapentin) 300 Mg Capsule, 300 MG PO TID Insulin Glargine,Hum.rec.anlog (Basaglar Kwikpen U-100) 100 Unit/1 Ml Insuln.pen, 55 UNIT SC BID Levocetirizine Dihydrochloride (Levocetirizine Dihydrochloride) 5 Mg Tablet, 5 MG PO QHS Losartan Potassium (Losartan Potassium) 100 Mg Tablet, 100 MG PO QHS Metformin HCl (Metformin HCl) 1,000 Mg Tab, 1,000 MG PO BID Multivitamins (Thera M Plus Tablet) 1 Tab Tab, 1 TAB PO DAILY Spironolactone (Spironolactone) 25 Mg Tablet, 25 MG PO DAILY Scheduled PRN Acetaminophen/Diphenhydramine (Acetaminophen Pm Caplet) 1 Each Tablet, 2 TAB PO QHS PRN for PAIN Ibuprofen (Ibuprofen) 600 Mg Tablet, 600 MG PO Q6H PRN for PAIN with food Allergies Coded Allergies: cefazolin (Verified Allergy, Intermediate, hives, 11/23/19) HAS HAD CEFTRIAXONE IN THE PAST fluoxetine (Verified Allergy, Intermediate, hives, 11/23/19) pseudoephedrine (Verified Allergy, Intermediate, hives, 11/23/19) trazodone (Verified Allergy, Intermediate, hives, 11/23/19) A-FIB/CHADSVASC A-FIB History Current/History of A-Fib/PAF?: No Current PO Anticoag Therapy: No Age/Risk Factor Scoring CHADSVASC: CHADSVASC Response (Comments) Value Age Risk Factor Age < 65 years old 0 Gender Risk Factor Female 1 Hx of CHF No 0 Hx of HTN Yes 1 Hx of Stroke/TIA/or VTE No 0 Hx of Diabetes Yes 1 Hx of Vascular Disease No 0 Total 3 Treatment Treatment ordered: NONE JAYMIE NEVAREZ MD Jul 17, 2020 19:51
[2020-07-17] MEDS ORDERED: ADME100I SC (20:10)
[2020-07-17] MEDS ORDERED: LEVO750T13 PO (20:10)
--- NOTE | 2020-07-17 20:12 | REPVR ---
PROCEDURE INFORMATION: Exam: MR Left Lower Extremity Other Than Joint Without and With Contrast; Foot Exam date and time: 07/17/2020 7:38 PM Age: 55 years old Clinical indication: Cellulitis; Foot; Left; Prior surgery; Surgery date: 6+ months; Surgery type: Amputation; Additional info: R/O osteo L foot TECHNIQUE: Imaging protocol: MR of the Left lower extremity without and with intravenous contrast. Exam focused on the foot. Contrast material: PROHANCE; Contrast volume: 11 ml; Contrast route: INTRAVENOUS (IV); COMPARISON: MRI FOOT WITHOUT CONTRAST 11/23/2019 3:39 PM FINDINGS: Bones and cartilage: Status post amputation of the 1st through 5th toes at the mid metatarsals. Abnormal marrow space signal demonstrated in the distal 2nd and 3rd metatarsals with abnormal enhancement on post gadolinium imaging consistent with osteomyelitis. Joint spaces: Unremarkable. No joint effusion. LIGAMENTS: Lisfranc ligament: Unremarkable. No evidence of tear. TENDONS: Flexor tendons of foot: Fluid demonstrated in the tendon sheath of the flexor hallucis longus consistent with synovitis. Tendon appears unremarkable. Tibialis posterior tendon: Fluid demonstrated in the tendon sheath of the tibialis posterior tendon consistent with synovitis. Tendon appears intrinsically unremarkable. Peroneal tendons: Unremarkable as visualized. Extensor tendons of foot: Unremarkable. No evidence of tear. Tibialis anterior tendon: Unremarkable as visualized. Tarsal canal (Sinus tarsi): Unremarkable. Tarsal tunnel: Unremarkable. Muscles: Diffuse enhancement of the intrinsic muscles of the foot, findings which can be seen in association with myositis. Soft tissues: Diffuse edema demonstrated in the foot with subcutaneous fluid as well as skin thickening consistent with cellulitis. Focal inflammatory mass demonstrated on the plantar aspect of the foot deep to a large ulcer crater measures 1.8 x 1.8 x 2.1 cm associated with regional gas and teardrop shaped fluid collection, findings consistent with an abscess. Fluid demonstrated in the synovium of the talonavicular joint. Plantar fascia: Unremarkable as visualized. IMPRESSION: 1. Status post amputation of the 1st through 5th toes at the mid metatarsals. 2. Abnormal marrow space signal demonstrated in the distal 2nd and 3rd metatarsals with abnormal enhancement on post gadolinium imaging consistent with osteomyelitis. 3. Fluid demonstrated in the tendon sheath of the tibialis posterior tendon consistent with synovitis. Tendon appears intrinsically unremarkable. 4. Diffuse enhancement of the intrinsic muscles of the foot, findings which can be seen in association with myositis. 5. Diffuse soft tissue edema with a focal abscess demonstrated on the plantar aspect of the foot. 6. Synovitis demonstrated in the tendon sheath of the flexor hallucis longus and tibialis posterior tendon. Electronically signed by: Carlos Ramírez On 07/17/2020 20:11:32 PM
[2020-07-17] MEDS: NS 1,000 ML IV SCH (20:15)
[2020-07-17] MEDS ORDERED: fentaNYL 100 MCG/2 ML INJECTION (J3010) As Ordered ONE (20:31)
[2020-07-17] MEDS ORDERED: propofoL 500 MG/50 ML VIAL As Ordered ONE (20:31)
[2020-07-17] MEDS ORDERED: MIDAZOLAM INJ 2MG/2ML VIAL (J2250 PER 1MG) As Ordered ONE (20:31)
[2020-07-17] MEDS ORDERED: LIDOCAINE 2% 100MG/5ML SDV (FOR ANES.) As Ordered ONE (20:31)
[2020-07-17] MEDS ORDERED: HumaLOG INSULIN (NovoLOG) PER UNIT SC PRN (21:00)
[2020-07-17] MEDS: LEVEMIR (INSULIN DETEMIR) 1 UNITS/0.01ML SC SCH (21:00)
[2020-07-17] MEDS ORDERED: fentaNYL 100 MCG/2 ML INJECTION (J3010) IV PRN (21:45)
[2020-07-17] MEDS ORDERED: LR 1,000 ML IV SCH (21:45)
[2020-07-17] MEDS ORDERED: HYDROMORPHONE HCL 0.5 MG/ 0.5 ML SYRINGE (J1170 PER 1) IV PRN (21:45)
[2020-07-17] MEDS ORDERED: oxyCODONE 5MG TAB PO PRN (21:45)
[2020-07-17] MEDS ORDERED: ONDANSETRON 4MG/2ML VIAL IV PRN (21:45)
[2020-07-17] MEDS ORDERED: LevoFLOXacin IV 750 MG in IV 1 EA IV SCH (22:00)
[2020-07-17 22:30] VITALS: BP 146/73
[2020-07-18] MEDS ORDERED: GLUCAGON INJ 1MG VIAL SC PRN
[2020-07-18] MEDS ORDERED: DEXTROSE 50% 50 ML SYRINGE IV PRN
[2020-07-18] MEDS ORDERED: GLUCOSE 4GM CHEW TABLET PO PRN
[2020-07-18] MEDS: LEVEMIR (INSULIN DETEMIR) 1 UNITS/0.01ML SC SCH ×3 (00:40→20:05)
[2020-07-18] MEDS: GABAPENTIN 300 MG CAP PO SCH ×4 (00:46→20:05)
[2020-07-18] MEDS: NS 1,000 ML IV SCH (00:46)
[2020-07-18] MEDS ORDERED: ONDANSETRON 4 MG ORAL DISINTEGRATING TAB SL PRN (01:00)
[2020-07-18] MEDS ORDERED: VANCOMYCIN HCL 1,000 MG, VIAL MATE ADAPTER 1 EACH in D5W 250 ML IV ONE ×4 (01:00)
[2020-07-18] MEDS: ATORVASTATIN 20 MG TAB PO SCH ×2 (01:10→20:05)
[2020-07-18] MEDS: MORPHINE 4 MG/ML 1ML VIAL/SYRINGE (J2270) IV PRN ×2 (03:16→18:37)
[2020-07-18 05:15] VITALS: BP 115/75
[2020-07-18 07:30] LABS: HEMATOCRIT 26.2 % (36.0-47.0); HEMOGLOBIN 8.1 g/dl (12.0-15.5); MEAN CORPUSCULAR HEMOGLOBIN 23.8 pg (27.0-33.0); MEAN CORPUSCULAR HGB CONC 30.9 g/dl (32.0-36.5); MEAN CORPUSCULAR VOLUME 76.8 fl (80.0-96.0); PLATELET COUNT, AUTOMATED 468 10^3/uL (150-450); RED BLOOD COUNT 3.41 10^6/uL (4.00-5.40); WHITE BLOOD COUNT 16.2 10^3/uL (4.0-10.0)
[2020-07-18 07:32] LABS: BLOOD UREA NITROGEN 10 MG/DL (7-18); CALCIUM LEVEL 8.5 MG/DL (8.5-10.1); CARBON DIOXIDE LEVEL 24 MEQ/L (21-32); CHLORIDE LEVEL 99 MEQ/L (98-107); CREATININE FOR GFR 0.98 MG/DL (0.55-1.30); GLOMERULAR FILTRATION RATE > 60.0 (>51); GLUCOSE, FASTING 304 MG/DL (70-100); MAGNESIUM LEVEL 1.7 MG/DL (1.8-2.4); SODIUM LEVEL 130 MEQ/L (136-145)
[2020-07-18] MEDS: IBUPROFEN 600MG TAB PO PRN (07:42)
[2020-07-18] MEDS: HumaLOG INSULIN (NovoLOG) PER UNIT SC SCH ×5 (07:43→20:14)
[2020-07-18] MEDS: ASPIRIN 81 MG ENTERIC TAB PO SCH (07:43)
[2020-07-18] MEDS: DULoxetine 30 MG CAP (CYMBALTA) PO SCH (07:43)
[2020-07-18] MEDS: amLODIPine 10 MG TAB PO SCH (07:44)
[2020-07-18] MEDS: SPIRONOLACTONE 25 MG TAB PO SCH (07:44)
[2020-07-18 08:04] LABS: ERYTHROCYTE SEDIMENTATION RATE 127 mm/hr (0-30)
--- NOTE | 2020-07-18 08:26 | RO ---
OPERATIVE NOTE DATE OF OPERATION: 07/17/2020 PREOPERATIVE DIAGNOSIS: Deep abscess formation, possible osteomyelitis plantar surface left foot. POSTOPERATIVE DIAGNOSIS: Deep abscess formation, possible osteomyelitis plantar surface left foot. PROCEDURE: Incision and drainage multiple abscesses plantar surface left foot. SURGEON: Justin Alicea DPM CROSSTIE INSPECTOR: None. ANESTHESIA: Local MAC. IRRIGATION: Dilute Gentamicin solution, 3 liters, low pressure pulse lavage system. DRAINS UTILIZED: inch Iodoform gauze. ESTIMATED BLOOD LOSS: 100 mL. DESCRIPTION OF PROCEDURE: On 07/17/2020 this 55-year-old female was taken from hospital room to the operating room, placed on the operating table in the supine position. Following induction of IV sedation and local regional anesthesia left lower extremity was prepped and draped in usual aseptic manner. Attention was directed to the patient's plantar surface of the left foot. There was noted to be an ulceration measuring approximately 2 cm x 2 cm. This ulcer tunneled in proximal direction 7 cm and approximately 2 cm distally. Utilizing sterile scalpel dissection was carried deep along this tunneling abscessed area. Upon incision there were several milliliters of purulent material which was cultured aerobically and anaerobically. There was an area of necrotic tissue as well in the central aspect measuring 1 cm x 1 cm which was sharply debrided. The ulcer extended to the plantar fascia and extended in proximal direction and was followed distally. Adventitious bursal formation was noted which was debrided. Using palpation the abscess ulceration area did not extend to bone along the 1st or 2nd metatarsal, the 3rd metatarsal could not be palpated. Therefore, the debridement was not carried to bone. Utilizing 3 liters of dilute Gentamicin the area was copiously irrigated with low pressure pulse lavage system. All bleeders as encountered were electrocoagulated. The wound was packed with inch Iodoform gauze and sterile dressing was applied consisting of ABD, 4 x 4s, Kerlix and Omer wrap. The Omer wrap was used just to support the bandage, no compression was utilized. The patient having apparently tolerated the surgical procedure well was taken from the OR to the recovery room for further monitoring by the anesthesia department. Postoperative instructions were given upon discharge. The patient will be placed on IV antibiotics until culture becomes available.
--- NOTE | 2020-07-18 10:09 | IPNPDOC ---
Date Seen The patient was seen on 07/18/20. Progress Note SUBJECTIVE: Patient was febrile overnight, but without complains of chills. Maximum temperature was 101.4. MRI shows osteomyelitis and abscess status post incision and drainage, Gentamicin in the Operating room with portrait consultant, Dr. Alicea on 07/17/2019. We are awaiting culture results. All cultures are still pending. Patient requesting PICC line due to poor IV access and multiple attempts of phlebotomy This morning. She denies any pain in the left foot and has chronic neuropathy. OBJECTIVE: PHYSICAL EXAMINATION: [facility] GENERAL APPEARANCE: aaox 3 appears younger than stated age. no distress HEENT: moist mm PERRLA EOMI no jvd/thyromegaly/cervical LAD/carotid bruits CARDIOVASCULAR: S1S2 RRR LUNGS: AEBE CTAB ABDOMEN: obese soft nt nd +bs no hsm no rebound or guarding EXTREMITIES: b/l transmetatarsal amputation .bandaged left foot LABORATORY DATA: See below. IMAGIN07/17/20 XRAY LEFT FOOT INDICATION: L foot pain/drainage. COMPARISON: No comparison left foot radiographs.. TECHNIQUE: Four views. FINDINGS: Four views of the left foot demonstrate a prior transmetatarsal amputation of the forefoot. The entire 5th metatarsal has been removed. There is diffuse soft tissue swelling about the stump and midfoot. There is soft tissue emphysema in the medial soft tissues at midfoot level. There is a 2 cm focal deficit in the soft tissues adjacent to the remaining 1st metatarsal along the plantar aspect consistent with a large plantar ulcer. Plantar and Achilles calcaneal heel spurs are noted. There is some midfoot osteoarthritic change. No acute bony erosive changes are noted.. No fracture or subluxation is seen. No opaque foreign body noted. IMPRESSION: Diffuse soft tissue swelling. There is soft tissue emphysema in the swollen medial soft tissues at midfoot level. A 2 cm focal soft tissue ulcer is seen along the plantar aspect. Patient is status post transmetatarsal forefoot amputation. Osteoarthritic changes are noted. No acute erosive changes are seen. No opaque foreign body noted.. <Electronically signed by Fredo Sandhu > 07/17/20 1641 MRI LEFT FOOT 07/17/20 Exam: MR Left Lower Extremity Other Than Joint Without and With Contrast; Foot Exam date and time: 07/17/2020 7:38 PM Age: 55 years old Clinical indication: Cellulitis; Foot; Left; Prior surgery; Surgery date: 6+ months; Surgery type: Amputation; Additional info: R/O osteo L foot TECHNIQUE: Imaging protocol: MR of the Left lower extremity without and with intravenous contrast. Exam focused on the foot. Contrast material: PROHANCE; Contrast volume: 11 ml; Contrast route: INTRAVENOUS (IV); COMPARISON: MRI FOOT WITHOUT CONTRAST 11/23/2019 3:39 PM FINDINGS: Bones and cartilage: Status post amputation of the 1st through 5th toes at the mid metatarsals. Abnormal marrow space signal demonstrated in the distal 2nd and 3rd metatarsals with abnormal enhancement on post gadolinium imaging consistent with osteomyelitis. Joint spaces: Unremarkable. No joint effusion. LIGAMENTS: Lisfranc ligament: Unremarkable. No evidence of tear. TENDONS: Flexor tendons of foot: Fluid demonstrated in the tendon sheath of the flexor hallucis longus consistent with synovitis. Tendon appears unremarkable. Tibialis posterior tendon: Fluid demonstrated in the tendon sheath of the tibialis posterior tendon consistent with synovitis. Tendon appears intrinsically unremarkable. Peroneal tendons: Unremarkable as visualized. Extensor tendons of foot: Unremarkable. No evidence of tear. Tibialis anterior tendon: Unremarkable as visualized. Tarsal canal (Sinus tarsi): Unremarkable. Tarsal tunnel: Unremarkable. Muscles: Diffuse enhancement of the intrinsic muscles of the foot, findings which can be seen in association with myositis. Soft tissues: Diffuse edema demonstrated in the foot with subcutaneous fluid as well as skin thickening consistent with cellulitis. Focal inflammatory mass demonstrated on the plantar aspect of the foot deep to a large ulcer crater measures 1.8 x 1.8 x 2.1 cm associated with regional gas and teardrop shaped fluid collection, findings consistent with an abscess. Fluid demonstrated in the synovium of the talonavicular joint. Plantar fascia: Unremarkable as visualized. IMPRESSION: 1. Status post amputation of the 1st through 5th toes at the mid metatarsals. 2. Abnormal marrow space signal demonstrated in the distal 2nd and 3rd metatarsals with abnormal enhancement on post gadolinium imaging consistent with osteomyelitis. 3. Fluid demonstrated in the tendon sheath of the tibialis posterior tendon consistent with synovitis. Tendon appears intrinsically unremarkable. 4. Diffuse enhancement of the intrinsic muscles of the foot, findings which can be seen in association with myositis. 5. Diffuse soft tissue edema with a focal abscess demonstrated on the plantar aspect of the foot. 6. Synovitis demonstrated in the tendon sheath of the flexor hallucis longus and tibialis posterior tendon. Electronically signed by: Carlos Ramírez On 07/17/2020 20:11:32 PM MICROBIOLOGY: Please see below. PROCEDURES: 07/17/20 DATE OF OPERATION: 07/17/2020 PREOPERATIVE DIAGNOSIS: Deep abscess formation, possible osteomyelitis plantar surface left foot. POSTOPERATIVE DIAGNOSIS: Deep abscess formation, possible osteomyelitis plantar surface left foot. PROCEDURE: Incision and drainage multiple abscesses plantar surface left foot. SURGEON: Justin Alicea DPM HAT MEASURER: None. ANESTHESIA: Local MAC. IRRIGATION: Dilute Gentamicin solution, 3 liters, low pressure pulse lavage system. DRAINS UTILIZED: inch Iodoform gauze. ESTIMATED BLOOD LOSS: 100 mL. DESCRIPTION OF PROCEDURE: On 07/17/2020 this 55-year-old female was taken from hospital room to the operating room, placed on the operating table in the supine position. Following induction of IV sedation and local regional anesthesia left lower extremity was prepped and draped in usual aseptic manner. Attention was directed to the patient's plantar surface of the left foot. There was noted to be an ulceration measuring approximately 2 cm x 2 cm. This ulcer tunneled in proximal direction 7 cm and approximately 2 cm distally. Utilizing sterile scalpel dissection was carried deep along this tunneling abscessed area. Upon incision there were several milliliters of purulent material which was cultured aerobically and anaerobically. There was an area of necrotic tissue as well in the central aspect measuring 1 cm x 1 cm which was sharply debrided. The ulcer extended to the plantar fascia and extended in proximal direction and was followed distally. Adventitious bursal formation was noted which was debrided. Using palpation the abscess ulceration area did not extend to bone along the 1st or 2nd metatarsal, the 3rd metatarsal could not be palpated. Therefore, the debridement was not carried to bone. Utilizing 3 liters of dilute Gentamicin the area was copiously irrigated with low pressure pulse lavage system. All bleeders as encountered were electrocoagulated. The wound was packed with inch Iodoform gauze and sterile dressing was applied consisting of ABD, 4 x 4s, Kerlix and Omer wrap. The Omer wrap was used just to support the bandage, no compression was utilized. The patient having apparently tolerated the surgical procedure well was taken from the OR to the recovery room for further monitoring by the anesthesia department. Postoperative instructions were given upon discharge. The patient will be placed on IV antibiotics until culture becomes available. DD: Justin Alicea DPGrace 07/17/202142 ASSESSMENT: 55 y/o F w pmh dm, neuropathy, chronic plantar ulcers, om s/p b/l transmetatrsal amputations, right plantar diabetic nelson grade [address] August and , morbid obesity bmi 45, Osteomyelitis of right foot 1st metatarsal 2014 w group B strep and strep mitis,iddm, HTN< dyslipidemia, bipolar, MRSA carrier, chronic osteo right foot and ankle was seen by ID Dr. Thomas on 07/16/20 and found to have increasing bloody and malodorous drainage out of the left plantar foot with fever 101, started on levaquin. Blood work and wound cultures were taken in the office, and pt was called to come to the ER today for admission for sepsis wbc 18 for left foot diabetic infection r/o osteomyelitis. Left distal 2nd and 3rd metatarsal osteomyelitis/ left plantar foot abscess 1.8x1.8 x 2.1 cm/ left foot myositis/ flexor hallucis longus and tibialis posterior tendon synovitis -wound cx obtained in ID office on 07/16/20 -Dr Alicea consulted -07/17/20 incision and debridement with gentamycin irrigation of the left foot plantar abscess - IV vancomycin dosed by pharmacy started 07/17/20 -IV levaquin renally dosed for gram negative coverage started 07/17/20 -ID consult on (not available on Thursday) -h/o mrsa nasal carrier -contact isolation -postoperative day #1 mgt per portrait consultant, Dr. Alicea -despite tmax 101.4 07/18/20, crp and esr are decreasing DM2 w neuropathy,uncontrolled -consistent carbs diet -fingersticks w coverage - hypoglycemic protocol -a1c checked -monitor 24hrs fingersticks, and will need to increase levemir insulin for better glycemic control morbid obesity bmi 45 -lipid panel pending Metabolic syndrome -dm, htn, obesity, dylipidemia: optimize medical therapy -weight loss as outpt -bariatric surgical referral as outpt HTN -resumed home meds postop dyslipidemia -resumed home meds postop - lipid panel pending bipolar disorder -resumed home meds postop MRSA carrier -contact precautions Hyponatremia na130 on 07/18/20 -asymptomatic Hypomagnesemia mg1.4 on 07/18/20 -supplemented. code: full code. dvt prophylaxis: lovenox. VS, I&O, 24H, Fishbone Vital Signs/I&O Vital Signs Date Time Temp Pulse Resp B/P (MAP) Pulse Ox O2 Delivery O2 Flow Rate FiO2 07/18/20 07:44 110 115/75 07/18/20 06:00 101.1 07/18/20 05:15 20 96 Room Air I&O- Last 24 Hours up to 6 AM 07/18/20 06:00 Intake Total 2060 ml Output Total 100 ml Balance 1960 ml Laboratory Data 24H LABS Laboratory Tests 2 07/17/20 15:39: Anion Gap 7L, Glomerular Filtration Rate 57.7, Lactic Acid Level 2.0, Calcium Le vivek 8.7, C-Reactive Protein, Quantitative 31.80H 07/17/20 16:04: Immature Granulocyte % (Auto) 3.6H, Neutrophils (%) (Auto) 70.4H, Lymphocytes (%) (Auto) 16.9L, Monocytes (%) (Auto) 8.1H, Eosinophils (%) (Auto) 0.6, Basophils (%) (Auto) 0.4, Neutrophils # (Auto) 12.8H, Lymphocytes # (Auto) 3.1, Monocytes # (Auto) 1.5H, Eosinophils # (Auto) 0.1, Basophils # (Auto) 0.1, Nucleated Red Blood Cells % (auto) 0.0, Erythrocyte Sedimentation Rate > 140H, Coronavirus (COVID-19)(PCR) NEGATIVE, Influenza Type A (RT-PCR) NEGATIVE, Influenza Type B (RT-PCR) NEGATIVE, Respiratory Syncytial Virus (PCR) NEGATIVE 07/18/20 00:41: Bedside Glucose (Misc Panel) 185H 07/18/20 06:13: Bedside Glucose (Misc Panel) 280H 07/18/20 07:14: Nucleated Red Blood Cells % (auto) 0.0, Erythrocyte Sedimentation Rate 127H, Anion Gap 7L, Glomerular Filtration Rate > 60.0, Calcium Level 8.5, Magnesium Level 1.7L, C-Reactive Protein, Quantitative 25.90H CBC/BMP Laboratory Tests 07/17/20 15:39 07/17/20 16:04 07/18/20 07:14 Microbiology Microbiology 07/17/20 Gram Stain - Final, Resulted 07/17/20 Wound Culture, Resulted Pending 07/17/20 Anaerobic Culture, Resulted Pending 07/17/20 Gram Stain - Final, Resulted 07/17/20 Wound Culture, Resulted Pending 07/17/20 Blood Culture, Received Pending 07/17/20 Blood Culture, Received Pending JAYMIE NEVAREZ MD Jul 18, 2020 09:27
[2020-07-18] MEDS ORDERED: MAG SULF 1GM/100ML (MAG RUN) 1 GM in IV 1 EA IV ONE (10:15)
--- NOTE | 2020-07-18 10:28 | CR ---
CONSULTATION DATE: 07/17/2020 CHIEF COMPLAINT: Patient seen at bedside for evaluation of infection in her left foot. HISTORY OF PRESENT ILLNESS: Patient states that initially Thursday, her foot was doing well and then suddenly, her foot worsened. She had seen Dr. Thomas, who performed a culture and lab work. She was advised to go to the hospital for admission for her foot infection and she is seen today for evaluation. This is a 55-year-old white female in no acute distress with swelling and infection on her left foot. PAST MEDICAL HISTORY: 1. Diabetes mellitus. 2. Diabetic neuropathy. 3. Chronic foot ulcers. 4. Status post bilateral transmetatarsal amputations. 5. Removal of fifth metatarsal, left foot. 6. Removal of foreign bodies in her feet. 7. Dyslipidemia. 8. Bipolar disorder. 9. 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 10. Chronic osteomyelitis of foot and ankle. PAST SURGICAL HISTORY: 1. Bilateral transmetatarsal amputations. 2. Numerous incision and drainage procedures. 3. (C) section. 4. Tubal ligation. 5. Cholecystectomy. 6. Jaw surgery. ALLERGIES: CEFAZOLIN, FLUOXETINE, PSEUDOEPHEDRINE, TRAZODONE. HOME MEDICATIONS: - amlodipine - aspirin - atorvastatin - duloxetine - gabapentin - insulin - levocetirizine - losartan - metformin - multivitamins - spironolactone PHYSICAL EXAMINATION: Examination of her foot reveals an ulceration present under the medial aspect of the first metatarsal measuring 2 cm x 2 cm. It is approximately 1 cm in depth. It does not appear to penetrate to bone. However, there is a tunneling track noted to the medial arch. This undermines approximately 6 cm where there is an area of necrosis and erythema formation. The patient's pedal pulses are palpable. IMAGING DATA: MRI reviewed revealing a fluid collection measuring 1.8 cm x 1.8 cm x approximately 2.1 cm consistent with fluid accumulation, plantar aspect of the foot in the area of the first metatarsal. Abnormal marrow signature distal aspect of the second and third metatarsals, possible osteomyelitis. ASSESSMENT: 1. Abscess formation with necrotic ulcers, stage IV, left foot. 2. Possible osteomyelitis of the second and third metatarsals. PLAN: Incision and drainage of abscess with debridement of skin, muscle and bone, left foot, with packing. Patient's questions were answered. Informed consent was signed by the patient.
[2020-07-18 10:54] LABS: CHOLESTEROL LEVEL 91 MG/DL (<200); CHOLESTEROL RISK RATIO 5.687 (<5); HDL CHOLESTEROL 16 MG/DL (>40); LDL CHOLESTEROL 37 MG/DL (<100); NON-HDL-C 75 MG/DL; TRIGLYCERIDES LEVEL 190 MG/DL (<150)
[2020-07-18 11:53] LABS: HEMOGLOBIN A1c 10.8 %
[2020-07-18 14:00] VITALS: BP 126/85
--- NOTE | 2020-07-18 14:49 | REP ---
INDICATION: nonhealing chronic diabetic ulcers r/o peripheral arterialds. COMPARISON: None. TECHNIQUE: Bilateral lower extremity arterial Doppler ultrasound. Ankle brachial indices are acquired. The distal most segments of the left posterior tibial and anterior tibial arteries could not be visualized due to patient's wound track and associated dressing. FINDINGS: Ankle brachial indices are measured at 1.09 on the right and 0.89 on the left. In the right lower extremity relatively normal triphasic and biphasic waveforms are noted in the arterial tracings except for the distal posterior tibial and distal anterior tibial arteries which demonstrate monophasic waveforms. Moderate plaquing is seen throughout. The distal anterior tibial artery on the right appears to have significant luminal narrowing and trickle of flow. There is evidence of a stenosis in the superficial femoral artery proximally on the left. Monophasic arterial waveforms are noted distal to this throughout the remainder of the left lower extremity arterial tree. Right lower extremity arterial Doppler velocity chart: Right FORESTRY ENGINEER PSV 152 cm/S Profundal 158 Proximal SFA 182 Mid SFA 143 Distal SFA 140 Popliteal 121 Proximal JOEL 44 Tibial-peroneal trunk 170 Proximal PHOTO GRAPHICS LIBRARIAN 135 Distal PHOTO GRAPHICS LIBRARIAN 119 Distal JOEL 46/20 Left lower extremity arterial Doppler velocity chart: Left FORESTRY ENGINEER PSV 169 cm/S Profundal 128 Proximal SFA 189/272 Mid SFA 142 Distal SFA 113 Popliteal 122 Proximal JOEL 70 Tibial-peroneal trunk 82 Proximal PHOTO GRAPHICS LIBRARIAN 107 Distal PHOTO GRAPHICS LIBRARIAN 110 Distal JOEL 58 IMPRESSION: Atherosclerotic disease as noted above. Trickle flow in the distal JOEL on the right. Monophasic waveforms of below a stenosis in the proximal SFA on the left. <Electronically signed by Fredo Sandhu > 07/18/20 [id number]
[2020-07-18] MEDS: VANCOMYCIN HCL 750 MG, VIAL MATE ADAPTER 1 EACH in D5W 250 ML IV SCH (16:48)
--- NOTE | 2020-07-18 17:04 | IPN ---
PROGRESS NOTE DATE: 07/18/2020 at 4:39 p.m. CHIEF COMPLAINT: Patient seen at bedside for evaluation status post incision and drainage, multiple abscesses, plantar surface, left foot. SUBJECTIVE: Patient states she is feeling well. Denies shortness of breath or chest pain. Her bandage has been reinforced. She had some breakthrough bleeding at night. Patient's labs were reviewed. Her white blood cell count has reduced from 18.2 to 16.2. ESR has reduced to 127. C-reactive protein has reduced to 25.9. Her GFR is greater than 60. Her wound cultures are pending. The foot was evaluated, and the dressing has no additional breakthrough bleeding, but bleeding is noted on the deeper layer. The dressing was removed today. The wound was inspected. There is no active bleeding. There is no active discharge. Reduction in erythema is noted on the medial side of the foot. The wound was cleansed with dermal wound cleanser, then Drawtex rope was placed in the wound followed by dry sterile dressings. Orders written were to cleanse the wound with Vashe, allow stand for 15 minutes, and apply Drawtex and dry sterile dressing. Patient may bear weight on her extremities; however, she does have bilateral ulcerations. Decreasing her weight status would be helpful in allowing her ulcerations to heal. She is presently on vancomycin. This can be altered according to her culture and sensitivity. The patient's questions are answered.
[2020-07-18] MEDS: VANCOMYCIN HCL 500 MG in D5W MINI-BAG PLUS 100 ML IV SCH (18:26)
[2020-07-18] MEDS ORDERED: LOSARTAN 50MG TABLET PO SCH (21:00)
[2020-07-18 22:00] VITALS: BP 136/73
[2020-07-18] MEDS: LevoFLOXacin IV 750 MG in IV 1 EA IV SCH (22:05)
[2020-07-19] MEDS: VANCOMYCIN HCL 750 MG, VIAL MATE ADAPTER 1 EACH in D5W 250 ML IV SCH (04:37)
[2020-07-19 06:00] VITALS: BP 153/68
[2020-07-19] MEDS: VANCOMYCIN HCL 500 MG in D5W MINI-BAG PLUS 100 ML IV SCH (06:24)
--- NOTE | 2020-07-19 07:13 | IPNPDOC ---
Date Seen The patient was seen on 07/19/20. Progress Note SUBJECTIVE: no fever or chills overnight. having a difficult blood draw this morning. labs not done yet. pt requesting picc line. blood cx neg. afebrile this am. no c/o pain in the foot, with chronic neuropathy. no diarrhea. c/o constipation OBJECTIVE: PHYSICAL EXAMINATION: VITAL SIGNS: seebelow GENERAL APPEARANCE: no distress no icterus HEENT: moist mm no jvd/thyromegaly/cervical LAD/carotid bruits CARDIOVASCULAR: S1S2 RRR nondisplaced pmi LUNGS: AEBE CTAB no adventitious breath sounds ABDOMEN: obese soft nt nd +bs no hsm no rebound or guarding EXTREMITIES: b/l transmetatarsal amputation b/l bandaged feet LABORATORY DATA: See below. IMAGIN07/17/20 XRAY LEFT FOOT INDICATION: L foot pain/drainage. COMPARISON: No comparison left foot radiographs.. TECHNIQUE: Four views. FINDINGS: Four views of the left foot demonstrate a prior transmetatarsal amputation of the forefoot. The entire 5th metatarsal has been removed. There is diffuse soft tissue swelling about the stump and midfoot. There is soft tissue emphysema in the medial soft tissues at midfoot level. There is a 2 cm focal deficit in the soft tissues adjacent to the remaining 1st metatarsal along the plantar aspect consistent with a large plantar ulcer. Plantar and Achilles calcaneal heel spurs are noted. There is some midfoot osteoarthritic change. No acute bony erosive changes are noted.. No fracture or subluxation is seen. No opaque foreign body noted. IMPRESSION: Diffuse soft tissue swelling. There is soft tissue emphysema in the swollen medial soft tissues at midfoot level. A 2 cm focal soft tissue ulcer is seen along the plantar aspect. Patient is status post transmetatarsal forefoot amputation. Osteoarthritic changes are noted. No acute erosive changes are seen. No opaque foreign body noted.. <Electronically signed by Fredo Sandhu > 07/17/20 1641 MRI LEFT FOOT 07/17/20 Exam: MR Left Lower Extremity Other Than Joint Without and With Contrast; Foot Exam date and time: 07/17/2020 7:38 PM Age: 55 years old Clinical indication: Cellulitis; Foot; Left; Prior surgery; Surgery date: 6+ months; Surgery type: Amputation; Additional info: R/O osteo L foot TECHNIQUE: Imaging protocol: MR of the Left lower extremity without and with intravenous contrast. Exam focused on the foot. Contrast material: PROHANCE; Contrast volume: 11 ml; Contrast route: INTRAVENOUS (IV); COMPARISON: MRI FOOT WITHOUT CONTRAST 11/23/2019 3:39 PM FINDINGS: Bones and cartilage: Status post amputation of the 1st through 5th toes at the mid metatarsals. Abnormal marrow space signal demonstrated in the distal 2nd and 3rd metatarsals with abnormal enhancement on post gadolinium imaging consistent with osteomyelitis. Joint spaces: Unremarkable. No joint effusion. LIGAMENTS: Lisfranc ligament: Unremarkable. No evidence of tear. TENDONS: Flexor tendons of foot: Fluid demonstrated in the tendon sheath of the flexor hallucis longus consistent with synovitis. Tendon appears unremarkable. Tibialis posterior tendon: Fluid demonstrated in the tendon sheath of the tibialis posterior tendon consistent with synovitis. Tendon appears intrinsically unremarkable. Peroneal tendons: Unremarkable as visualized. Extensor tendons of foot: Unremarkable. No evidence of tear. Tibialis anterior tendon: Unremarkable as visualized. Tarsal canal (Sinus tarsi): Unremarkable. Tarsal tunnel: Unremarkable. Muscles: Diffuse enhancement of the intrinsic muscles of the foot, findings which can be seen in association with myositis. Soft tissues: Diffuse edema demonstrated in the foot with subcutaneous fluid as well as skin thickening consistent with cellulitis. Focal inflammatory mass demonstrated on the plantar aspect of the foot deep to a large ulcer crater measures 1.8 x 1.8 x 2.1 cm associated with regional gas and teardrop shaped fluid collection, findings consistent with an abscess. Fluid demonstrated in the synovium of the talonavicular joint. Plantar fascia: Unremarkable as visualized. IMPRESSION: 1. Status post amputation of the 1st through 5th toes at the mid metatarsals. 2. Abnormal marrow space signal demonstrated in the distal 2nd and 3rd metatarsals with abnormal enhancement on post gadolinium imaging consistent with osteomyelitis. 3. Fluid demonstrated in the tendon sheath of the tibialis posterior tendon consistent with synovitis. Tendon appears intrinsically unremarkable. 4. Diffuse enhancement of the intrinsic muscles of the foot, findings which can be seen in association with myositis. 5. Diffuse soft tissue edema with a focal abscess demonstrated on the plantar aspect of the foot. 6. Synovitis demonstrated in the tendon sheath of the flexor hallucis longus and tibialis posterior tendon. Electronically signed by: Carlos Ramírez On 07/17/2020 20:11:32 PM MICROBIOLOGY: Please see below. PROCEDURES: 07/17/20 DATE OF OPERATION: 07/17/2020 PREOPERATIVE DIAGNOSIS: Deep abscess formation, possible osteomyelitis plantar surface left foot. POSTOPERATIVE DIAGNOSIS: Deep abscess formation, possible osteomyelitis plantar surface left foot. PROCEDURE: Incision and drainage multiple abscesses plantar surface left foot. SURGEON: Justin Alicea DPM LAW ENFORCEMENT INSTRUCTOR: None. ANESTHESIA: Local MAC. IRRIGATION: Dilute Gentamicin solution, 3 liters, low pressure pulse lavage system. DRAINS UTILIZED: inch Iodoform gauze. ESTIMATED BLOOD LOSS: 100 mL. DESCRIPTION OF PROCEDURE: On 07/17/2020 this 55-year-old female was taken from hospital room to the operating room, placed on the operating table in the supine position. Following induction of IV sedation and local regional anesthesia left lower extremity was prepped and draped in usual aseptic manner. Attention was directed to the patient's plantar surface of the left foot. There was noted to be an ulceration measuring approximately 2 cm x 2 cm. This ulcer tunneled in proximal direction 7 cm and approximately 2 cm distally. Utilizing sterile scalpel dissection was carried deep along this tunneling abscessed area. Upon incision there were several milliliters of purulent material which was cultured aerobically and anaerobically. There was an area of necrotic tissue as well in the central aspect measuring 1 cm x 1 cm which was sharply debrided. The ulcer extended to the plantar fascia and extended in proximal direction and was followed distally. Adventitious bursal formation was noted which was debrided. Using palpation the abscess ulceration area did not extend to bone along the 1st or 2nd metatarsal, the 3rd metatarsal could not be palpated. Therefore, the debridement was not carried to bone. Utilizing 3 liters of dilute Gentamicin the area was copiously irrigated with low pressure pulse lavage system. All bleeders as encountered were electrocoagulated. The wound was packed with inch Iodoform gauze and sterile dressing was applied consisting of ABD, 4 x 4s, Kerlix and Omer wrap. The Omer wrap was used just to support the bandage, no compression was utilized. The patient having apparently tolerated the surgical procedure well was taken from the OR to the recovery room for further monitoring by the anesthesia department. Postoperative instructions were given upon discharge. The patient will be placed on IV antibiotics until culture becomes available. DD: Justin Alicea DPM 07/17/[id number] ASSESSMENT: 55 y/o F w pmh dm, neuropathy, chronic plantar ulcers, om s/p b/l transmetatrsal amputations, right plantar diabetic nelson grade [address] August and , morbid obesity bmi 45, Osteomyelitis of right foot 1st metatarsal 2015 w group B strep and strep mitis,iddm, HTN< dyslipidemia, bipolar, MRSA carrier, chronic osteo right foot and ankle was seen by ID Dr. Thomas on 07/16/20 and found to have increasing bloody and malodorous drainage out of the left plantar foot with fever 101, started on levaquin. Blood work and wound cultures were taken in the office, and pt was called to come to the ER today for admission for sepsis wbc 18 for left foot diabetic infection r/o osteomyelitis. Left distal 2nd and 3rd metatarsal osteomyelitis/ left plantar foot abscess 1.8x1.8 x 2.1 cm/ left foot myositis/ flexor hallucis longus and tibialis posterior tendon synovitis -wound cx obtained in ID office on 07/16/20 -Dr Alicea consulted -07/17/20 incision and debridement with gentamycin irrigation of the left foot plantar abscess - IV vancomycin dosed by pharmacy started 07/17/20 -IV levaquin renally dosed for gram negative coverage started 07/17/20 -ID consulted for recurrent osteomyelitis -h/o mrsa nasal carrier -contact isolation -postoperative day #2mgt per [facility]ris administrator, Dr. Alicea -despite tmax 101.4 07/18/20, crp and esr are decreasing -afebrile since 07/19/20, and no purulent drainage DM2 w neuropathy -consistent carbs diet -fingersticks w coverage - hypoglycemic protocol -a1c checked morbid obesity bmi 45 -complicating care Metabolic syndrome -dm, htn, obesity, dylipidemia: optimized medical therapy -weight loss as outpt -bariatric surgical referral as outpt HTN -resumed home meds postop dyslipidemia -resumed home meds postop bipolar disorder -resumed home meds postop MRSA carrier -contact precautions Hyponatremia na130 on 07/18/20 -asymptomatic Hypomagnesemia mg1.4 on 07/18/20 -supplemented. code: full code. dvt prophylaxis: lovenox. disposition: pending wound cx and abx recommendations. pt/ot VS, I&O, 24H, Fishbone Vital Signs/I&O Vital Signs Date Time Temp Pulse Resp B/P (MAP) Pulse Ox O2 Delivery O2 Flow Rate FiO2 07/19/20 06:00 98.9 93 17 153/68 (96) 94 Room Air I&O- Last 24 Hours up to 6 AM 07/19/20 06:00 Intake Total 1360 ml Output Total 0 ml Balance 1360 ml Laboratory Data 24H LABS Laboratory Tests 2 07/18/20 07:14: Nucleated Red Blood Cells % (auto) 0.0, Erythrocyte Sedimentation Rate 127H, Anion Gap 7L, Glomerular Filtration Rate > 60.0, Calcium Level 8.5, Magnesium Level 1.7L, C-Reactive Protein, Quantitative 25.90H, Triglycerides Level 190H, Total Cholesterol 91, LDL Cholesterol 37, Non-HDL Cholesterol (LDL + VLDL) 75, Total HDL Cholesterol 16L, Cholesterol/HDL Ratio 5.687H 07/18/20 10:05: Estimated Mean Plasma Glucose 263H, Hemoglobin A1c 10.8 07/18/20 11:31: Bedside Glucose (Misc Panel) 224H 07/18/20 12:50: Lab Scanned Report Miscellaneous Lab 07/18/20 16:24: Bedside Glucose (Misc Panel) 158H 07/18/20 20:03: Bedside Glucose (Misc Panel) 208H 07/19/20 06:02: Bedside Glucose (Misc Panel) 145H CBC/BMP Laboratory Tests 07/18/20 07:14 Microbiology Microbiology 07/17/20 Gram Stain - Final, Resulted 07/17/20 Wound Culture, Resulted Pending 07/17/20 Anaerobic Culture, Resulted Pending 07/17/20 Gram Stain - Final, Resulted 07/17/20 Wound Culture, Resulted Pending 07/17/20 Blood Culture - Preliminary, Resulted No growth after 24 hours . All specim... 07/17/20 Blood Culture - Preliminary, Resulted No growth after 24 hours . All specim... JAYMIE NEVAREZ MD Jul 19, 2020 07:13
[2020-07-19 07:28] LABS: HEMATOCRIT 25.3 % (36.0-47.0); HEMOGLOBIN 7.7 g/dl (12.0-15.5); MEAN CORPUSCULAR HEMOGLOBIN 23.5 pg (27.0-33.0); MEAN CORPUSCULAR HGB CONC 30.4 g/dl (32.0-36.5); MEAN CORPUSCULAR VOLUME 77.1 fl (80.0-96.0); PLATELET COUNT, AUTOMATED 494 10^3/uL (150-450); RED BLOOD COUNT 3.28 10^6/uL (4.00-5.40); WHITE BLOOD COUNT 17.8 10^3/uL (4.0-10.0)
[2020-07-19 07:54] LABS: CALCIUM LEVEL 8.9 MG/DL (8.5-10.1); CREATININE FOR GFR 1.76 MG/DL (0.55-1.30); GLOMERULAR FILTRATION RATE 32.2 (>51); POTASSIUM SERUM 4.5 MEQ/L (3.5-5.1)
[2020-07-19] MEDS: amLODIPine 10 MG TAB PO SCH (08:47)
[2020-07-19] MEDS: DULoxetine 30 MG CAP (CYMBALTA) PO SCH (08:47)
[2020-07-19] MEDS: GABAPENTIN 300 MG CAP PO SCH ×3 (08:47→20:46)
[2020-07-19] MEDS: SPIRONOLACTONE 25 MG TAB PO SCH (08:48)
[2020-07-19] MEDS: HumaLOG INSULIN (NovoLOG) PER UNIT SC SCH ×4 (08:48→20:47)
[2020-07-19] MEDS: ASPIRIN 81 MG ENTERIC TAB PO SCH (08:48)
[2020-07-19] MEDS: LEVEMIR (INSULIN DETEMIR) 1 UNITS/0.01ML SC SCH ×2 (08:49→20:45)
[2020-07-19] MEDS: IBUPROFEN 600MG TAB PO PRN (12:15)
[2020-07-19 14:00] VITALS: BP 139/66
--- NOTE | 2020-07-19 16:50 | CR ---
ADVANCED WOUND CARE CONSULTATION VIA TELEMEDICINE DATE: 07/19/2020 CONSULTATION REQUESTED BY: Dora Potter MD REASON FOR CONSULTATION: Wound care treatment for bilateral lower extremity transmetatarsal amputation sites of right and left feet. HISTORY OF PRESENT ILLNESS: Patient has been followed in our clinic intermittently over the last several years. She is totally noncompliant, has advanced neuropathy, ambulates whenever she wishes, tries to self care her wounds and is unable to offload. She does have customized footwear, but it is unclear if she uses it or not. She has been seen by infectious disease and apparently recently she was found to have a high elevation white count of 21,000 and a temperature of 101.4. For this reason, infectious disease sent her to the Emergency Room for hospitalization. She was admitted 48 hours ago and podiatry was consulted, who used Drawtex on the wound. On visualization, the left foot appears erythematous to the level of just above the malleolus, it is significantly different compared to her right foot. There are bilateral transmetatarsal amputation sites and the suture lines are intact, however, there are extensive plantar wounds bilaterally. It would appear that the problem is stemming from her left foot. Patient is on Vancomycin and Levaquin. Glucose today 145. Glucose yesterday 265. PHYSICAL EXAMINATION: There is significant erythema involving the left foot compared to the right, which shows mild inflammatory changes. On the plantar distal surface, there is a wound measuring 2.7 cm x 9.7 cm with a wound depth of 1.2 cm. The wound base itself shows necrotic tissue. Drainage appears moderate, serosanguineous. There is callus formation involving the periwound, which is extensive. The left lower extremity is obese with 2+ edema. The right lower extremity shows a transmetatarsal amputation site with intact suture line, but the plantar distal surface of the foot shows a wound measuring 6.0 cm x 9.5 cm with a wound depth of 0.3 cm. Drainage is serosanguineous and moderate. Periwound does not show extensive callus formation compared to the left. Inspection of the heels bilaterally shows no pressure injuries. TREATMENT SUGGESTION: Patient should be at strict bed rest. Continue with I.V. antibiotic therapy per infectious disease. Glucose has to be tightly controlled as hyperglycemia over 180 is detrimental to any wound healing. In terms of dressing changes, the patient would benefit from Hydrofera Blue transfer with Drawtex used as an outer absorptive dressing for both right and left feet. This should be changed on a daily basis and secured with Kerlix or Natacha. Vashe wound cleanser should be used prior to redressing each wound. If patient does stabilize and is appropriate for discharge, she can be followed up at our clinic if she so desires. If there is any question in terms of deep seeded infection, an MRI of the left foot would be recommended. Inflammatory markers such as sed rate and C-reactive protein should be added to her routine laboratory studies along with a hemoglobin A1C. To follow her clinical progress, repeat white count obviously is indicated. While the patient is hospitalized, any question in arterial flow should be checked by bilateral arterial ultrasounds. Please re-consult if there are any questions or the patient needs to be reevaluated. Thank you for this consult. JACOB
[2020-07-19] MEDS ORDERED: NS 1,000 ML IV ONE (17:30)
[2020-07-19 18:02] LABS: HEMATOCRIT 28.1 % (36.0-47.0); HEMOGLOBIN 8.4 g/dl (12.0-15.5)
[2020-07-19 18:26] LABS: PERCENT SATURATION 5.7 % (13.2-45.0)
[2020-07-19 19:45] VITALS: BP_SYST 148; BP_SYST 48; BP_DIAS 68
[2020-07-19] MEDS: NS 1,000 ML IV SCH (20:44)
[2020-07-19] MEDS: MORPHINE 4 MG/ML 1ML VIAL/SYRINGE (J2270) IV PRN (20:46)
[2020-07-19] MEDS: ATORVASTATIN 20 MG TAB PO SCH (20:47)
[2020-07-19] MEDS ORDERED: VANCOMYCIN HCL 750 MG, VIAL MATE ADAPTER 1 EACH in D5W 250 ML IV SCH ×2 (22:00→23:00)
[2020-07-20] MEDS: LevoFLOXacin IV 750 MG in IV 1 EA IV SCH (00:45)
[2020-07-20] MEDS: NS 1,000 ML IV SCH ×3 (03:45→09:00)
[2020-07-20 05:18] VITALS: BP 168/77
[2020-07-20 05:49] LABS: HEMOGLOBIN 8.2 g/dl (12.0-15.5); MEAN CORPUSCULAR HGB CONC 29.3 g/dl (32.0-36.5); MEAN CORPUSCULAR VOLUME 78.4 fl (80.0-96.0); PLATELET COUNT, AUTOMATED 578 10^3/uL (150-450); RED BLOOD COUNT 3.57 10^6/uL (4.00-5.40); WHITE BLOOD COUNT 20.7 10^3/uL (4.0-10.0)
[2020-07-20 06:08] LABS: ERYTHROCYTE SEDIMENTATION RATE 128 mm/hr (0-30)
[2020-07-20 06:28] LABS: C REACTIVE PROTEIN QUANTITATIV 21.9 MG/DL (0.00-0.30); CALCIUM LEVEL 9.4 MG/DL (8.5-10.1); CREATININE FOR GFR 1.98 MG/DL (0.55-1.30); GLOMERULAR FILTRATION RATE 28.1 (>51); MAGNESIUM LEVEL 1.9 MG/DL (1.8-2.4); POTASSIUM SERUM 4.7 MEQ/L (3.5-5.1)
[2020-07-20] MEDS ORDERED: LINEZOLID 600MG TABLET (ZYVOX) PO ONE (07:30)
[2020-07-20] MEDS ORDERED: LevoFLOXacin 500 MG TABLET PO ONE (07:30)
--- NOTE | 2020-07-20 07:43 | IPNPDOC ---
Date Seen The patient was seen on 07/20/20. Progress Note SUBJECTIVE: "I was tangled up with my IV, and pulled it out." lost iv site this morning while patient was half-asleep. PICC line ordered. despite ivfluids, creatinine increased to 1.9. no c/o sob, fever, chills, or foot pain. OBJECTIVE: PHYSICAL EXAMINATION: VITAL SIGNS: seebelow GENERAL APPEARANCE:aaox 3 no distress HEENT: moist mm thick neck no jvd CARDIOVASCULAR: S1S2 RRR LUNGS: AEBE CTAB ABDOMEN: obese soft nt nd +bs no hsm no rebound or guarding EXTREMITIES: b/l transmetatarsal amputation b/l bandaged feet LABORATORY DATA: See below. IMAGIN07/17/20 XRAY LEFT FOOT INDICATION: L foot pain/drainage. COMPARISON: No comparison left foot radiographs.. TECHNIQUE: Four views. FINDINGS: Four views of the left foot demonstrate a prior transmetatarsal amputation of the forefoot. The entire 5th metatarsal has been removed. There is diffuse soft tissue swelling about the stump and midfoot. There is soft tissue emphysema in the medial soft tissues at midfoot level. There is a 2 cm focal deficit in the soft tissues adjacent to the remaining 1st metatarsal along the plantar aspect consistent with a large plantar ulcer. Plantar and Achilles calcaneal heel spurs are noted. Th ere is some midfoot osteoarthritic change. No acute bony erosive changes are noted.. No fracture or subluxation is seen. No opaque foreign body noted. IMPRESSION: Diffuse soft tissue swelling. There is soft tissue emphysema in the swollen medial soft tissues at midfoot level. A 2 cm focal soft tissue ulcer is seen along the plantar aspect. Patient is status post transmetatarsal forefoot amputation. Osteoarthritic changes are noted. No acute erosive changes are seen. No opaque foreign body noted.. <Electronically signed by Fredo Sandhu > 07/17/20 1641 MRI LEFT FOOT 07/17/20 Exam: MR Left Lower Extremity Other Than Joint Without and With Contrast; Foot Exam date and time: 07/17/2020 7:38 PM Age: 55 years old Clinical indication: Cellulitis; Foot; Left; Prior surgery; Surgery date: 6+ months; Surgery type: Amputation; Additional info: R/O osteo L foot TECHNIQUE: Imaging protocol: MR of the Left lower extremity without and with intravenous contrast. Exam focused on the foot. Contrast material: PROHANCE; Contrast volume: 11 ml; Contrast route: INTRAVENOUS (IV); COMPARISON: MRI FOOT WITHOUT CONTRAST 11/23/2019 3:39 PM FINDINGS: Bones and cartilage: Status post amputation of the 1st through 5th toes at the mid metatarsals. Abnormal marrow space signal demonstrated in the distal 2nd and 3rd metatarsals with abnormal enhancement on post gadolinium imaging consistent with osteomyelitis. Joint spaces: Unremarkable. No joint effusion. LIGAMENTS: Lisfranc ligament: Unremarkable. No evidence of tear. TENDONS: Flexor tendons of foot: Fluid demonstrated in the tendon sheath of the flexor hallucis longus consistent with synovitis. Tendon appears unremarkable. Tibialis posterior tendon: Fluid demonstrated in the tendon sheath of the tibialis posterior tendon consistent with synovitis. Tendon appears intrinsically unremarkable. Peroneal tendons: Unremarkable as visualized. Extensor tendons of foot: Unremarkable. No evidence of tear. Tibialis anterior tendon: Unremarkable as visualized. Tarsal canal (Sinus tarsi): Unremarkable. Tarsal tunnel: Unremarkable. Muscles: Diffuse enhancement of the intrinsic muscles of the foot, findings which can be seen in association with myositis. Soft tissues: Diffuse edema demonstrated in the foot with subcutaneous fluid as well as skin thickening consistent with cellulitis. Focal inflammatory mass demonstrated on the plantar aspect of the foot deep to a large ulcer crater measures 1.8 x 1.8 x 2.1 cm associated with regional gas and teardrop shaped fluid collection, findings consistent with an abscess. Fluid demonstrated in the synovium of the talonavicular joint. Plantar fascia: Unremarkable as visualized. IMPRESSION: 1. Status post amputation of the 1st through 5th toes at the mid metatarsals. 2. Abnormal marrow space signal demonstrated in the distal 2nd and 3rd metatarsals with abnormal enhancement on post gadolinium imaging consistent with osteomyelitis. 3. Fluid demonstrated in the tendon sheath of the tibialis posterior tendon consistent with synovitis. Tendon appears intrinsically unremarkable. 4. Diffuse enhancement of the intrinsic muscles of the foot, findings which can be seen in association with myositis. 5. Diffuse soft tissue edema with a focal abscess demonstrated on the plantar aspect of the foot. 6. Synovitis demonstrated in the tendon sheath of the flexor hallucis longus and tibialis posterior tendon. Electronically signed by: Carlos Ramírez On 07/17/2020 20:11:32 PM MICROBIOLOGY: Please see below. PROCEDURES: 07/17/20 DATE OF OPERATION: 07/17/2020 PREOPERATIVE DIAGNOSIS: Deep abscess formation, possible osteomyelitis plantar surface left foot. POSTOPERATIVE DIAGNOSIS: Deep abscess formation, possible osteomyelitis plantar surface left foot. PROCEDURE: Incision and drainage multiple abscesses plantar surface left foot. SURGEON: Justin Alicea DPM JOB TRAINER: None. ANESTHESIA: Local MAC. IRRIGATION: Dilute Gentamicin solution, 3 liters, low pressure pulse lavage system. DRAINS UTILIZED: inch Iodoform gauze. ESTIMATED BLOOD LOSS: 100 mL. DESCRIPTION OF PROCEDURE: On 07/17/2020 this 55-year-old female was taken from hospital room to the operating room, placed on the operating table in the supine position. Following induction of IV sedation and local regional anesthesia left lower extremity was prepped and draped in usual aseptic manner. Attention was directed to the patient's plantar surface of the left foot. There was noted to be an ulceration measuring approximately 2 cm x 2 cm. This ulcer tunneled in proximal direction 7 cm and approximately 2 cm distally. Utilizing sterile scalpel dissection was carried deep along this tunneling abscessed area. Upon incision there were several milliliters of purulent material which was cultured aerobically and anaerobically. There was an area of necrotic tissue as well in the central aspect measuring 1 cm x 1 cm which was sharply debrided. The ulcer extended to the plantar fascia and extended in proximal direction and was followed distally. Adventitious bursal formation was noted which was debrided. Using palpation the abscess ulceration area did not extend to bone along the 1st or 2nd metatarsal, the 3rd metatarsal could not be palpated. Therefore, the debridement was not carried to bone. Utilizing 3 liters of dilute Gentamicin the area was copiously irrigated with low pressure pulse lavage system. All bleeders as encountered were electrocoagulated. The wound was packed with inch Iodoform gauze and sterile dressing was applied consisting of ABD, 4 x 4s, Kerlix and Omer wrap. The Omer wrap was used just to support the bandage, no compression was utilized. The patient having apparently tolerated the surgical procedure well was taken from the OR to the recovery room for further monitoring by the anesthesia department. Postoperative instructions were given upon discharge. The patient will be placed on IV antibiotics until culture becomes available. DD: Justin Alicea DPM 07/17/201 ASSESSMENT: 55 y/o F w pmh dm, neuropathy, chronic plantar ulcers, om s/p b/l transmetatrsal amputations, right plantar diabetic nelson grade [address] August and , morbid obesity bmi 45, Osteomyelitis of right foot 1st metatarsal 2015 w group B strep and strep mitis,iddm, HTN< dyslipidemia, bipolar, MRSA carrier, chronic osteo right foot and ankle was seen by ID Dr. Thomas on 07/16/20 and found to have increasing bloody and malodorous drainage out of the left plantar foot with fever 101, started on levaquin. Blood work and wound cultures were taken in the office, and pt was called to come to the ER today for admission for sepsis wbc 18 for left foot diabetic infection r/o osteomyelitis. Left distal 2nd and 3rd metatarsal osteomyelitis/ left plantar foot abscess 1.8x1.8 x 2.1 cm/ left foot myositis/ flexor hallucis longus and tibialis posterior tendon synovitis Acute kidney injury Lost IV access DM2 w neuropathy Peripheral Arterial disease morbid obesity bmi 45 Metabolic syndrome HTN dyslipidemia bipolar disorder MRSA carrier s/p b/l transmetatarsal amputations of feet PLAN: Pt pulle d out her IV. PICC line today. zyvox and levaquin po until PICC can be placed. IVF for MONIQUE-discontinued nephrotoxins yesterday, avoided NSAIDs. Renal us and strict i/o for now. resume ivf once picc line is in. vascular surgical consult to review arterial dopplers for peripheral arterial disease and determine need for revascularization for nonhealing ulcer. However, pt's creatinine right now will not permit using an arteriogram due to contrast nephropathy. palomino to gravity if pvr>300ml. VS, I&O, 24H, Fishbone Vital Signs/I&O Vital Signs Date Time Temp Pulse Resp B/P (MAP) Pulse Ox O2 Delivery O2 Flow Rate FiO2 07/20/20 05:18 97.7 108 20 168/77 (107) 96 Room Air I&O- Last 24 Hours up to 6 AM 07/20/20 05:59 Intake Total 2250 ml Output Total 1400 ml Balance 850 ml Laboratory Data 24H LABS Laboratory Tests 2 07/19/20 12:01: Bedside Glucose (Misc Panel) 201H 07/19/20 16:10: Vancomycin Level Trough 24.4H 07/19/20 17:21: Bedside Glucose (Misc Panel) 211H 07/19/20 17:51: Reticulocyte # (auto) 19.6, Percent Reticulocyte Count 0.6, Reticulocyte Hemoglobin Equivalent 23.5L, Iron Level 14L, Total Iron Binding Capacity 247L, Transferrin % Saturation 5.7L, Ferritin 196 07/19/20 19:50: Bedside Glucose (Misc Panel) 218H 07/20/20 05:21: Nucleated Red Blood Cells % (auto) 0.1H, Erythrocyte Sedimentation Rate 128H, Anion Gap 6L, Glomerular Filtration Rate 28.1L, Calcium Level 9.4, Magnesium Level 1.9, C-Reactive Protein, Quantitative 21.90H 07/20/20 06:22: CBC/BMP Laboratory Tests 07/19/20 17:51 07/20/20 05:21 Microbiology Microbiology 07/17/20 Gram Stain - Final, Resulted 07/17/20 Wound Culture, Resulted Pending 07/17/20 Anaerobic Culture, Resulted Pending 07/17/20 Gram Stain - Final, Resulted 07/17/20 Wound Culture - Preliminary, Resulted Enterococcus Faecalis Corynebacterium Species 07/17/20 Blood Culture - Preliminary, Resulted No Growth after 48 hours. All Specime... 07/17/20 Blood Culture - Preliminary, Resulted No Growth after 48 hours. All Specime... JAYMIE NEVAREZ MD Jul 20, 2020 07:43
--- NOTE | 2020-07-20 08:20 | REP ---
INDICATION: renal failure COMPARISON: None TECHNIQUE: Real time river scale ultrasound examination using curved array transducer. FINDINGS: Bilateral kidneys are normal in contour, size, echogenicity, and reniform shape. No hydronephrosis, nephrolithiasis, cystic or renal mass lesion. Right kidney measures 12.9 x 5.7 x 5.1 cm. Left kidney measures 13.2 x 6.9 x 6.7 cm. The bladder is grossly unremarkable. IMPRESSION: Normal renal ultrasound. <Electronically signed by Kaiden Buenrostro > 07/20/20 0894
[2020-07-20] MEDS: HumaLOG INSULIN (NovoLOG) PER UNIT SC SCH ×4 (08:27→22:04)
[2020-07-20] MEDS: LEVEMIR (INSULIN DETEMIR) 1 UNITS/0.01ML SC SCH ×2 (08:28→22:28)
[2020-07-20] MEDS: ASPIRIN 81 MG ENTERIC TAB PO SCH (08:29)
[2020-07-20] MEDS: DULoxetine 30 MG CAP (CYMBALTA) PO SCH (08:29)
[2020-07-20] MEDS: GABAPENTIN 300 MG CAP PO SCH ×3 (08:29→22:27)
[2020-07-20] MEDS: amLODIPine 10 MG TAB PO SCH (08:30)
[2020-07-20] MEDS ORDERED: PIPERACILLIN/TAZOBACTAM SOD 3.375 GM in D5W MINI-BAG PLUS 50 ML IV SCH (08:45)
[2020-07-20] MEDS ORDERED: LIDOCAINE 1% MDV 20ML VIAL As Ordered ONE (08:57)
[2020-07-20] MEDS ORDERED: LORazepam 1 MG TAB PO ONE (09:00)
--- NOTE | 2020-07-20 09:52 | CR ---
INFECTIOUS DISEASE CONSULTATION DATE: 07/19/2020 REASON FOR CONSULTATION: Osteomyelitis of the left foot with an abscess. HISTORY OF PRESENT ILLNESS: Iliana is a pleasant 55-year-old morbidly obese, insulin-dependent diabetic with poor compliance who presented to my office the day prior to admission for follow up on right foot osteomyelitis, which had been improving on dicloxacillin for the past three months. In the meantime, she had developed a callous on the left foot, where she also has a transmetatarsal amputation that was dbrided by Dr. August the week before, and she had noted there was increased discharge. She had a fever over the weekend, chills and a new blister that had developed over the medial aspect of the foot as well. I did laboratories in my office and a culture of the wound, and advised her if her fever persisted, she needed to go to the hospital. Her white count was 21,000, and therefore, I called her and advised her to go to the hospital for admission. She had been started on levofloxacin as an outpatient. She feels better. She had an incision and drainage (I and D) done by Dr. Alicea after MRI showed abnormal signal enhancement in distal second and third metatarsal, consistent with osteomyelitis of the metatarsal with fluid in the tendon sheath of the tibialis posterior tendon, consistent with synovitis, diffuse enhancement of the intrinsic muscles of the foot consistent with myositis, focal abscess on the plantar abscess of the foot. Right arterial Doppler was consistent with stenosis in the proximal superficial femoral artery (SFA) and the right distal anterior tibial artery appeared to have significant luminal narrowing as well. ALLERGIES: CEFAZOLIN, FLUOXETINE, SUDAFED, TRAZODONE. MEDICATIONS: - levofloxacin 750 mg IV every 24 hours - vancomycin 1.25 g IV every 12 hours is currently on hold; patient has received two doses - amlodipine 10 mg daily - aspirin 81 mg daily - duloxetine 60 mg daily - Aldactone 25 mg daily - ibuprofen as needed - morphine 4 mg IV every 6 hours as needed - gabapentin 300 mg by mouth three times a day - atorvastatin 40 mg by mouth at bedtime Patient has received two doses of ibuprofen 600 mg. Her creatinine has increased from 0. 9 to 1.7 and therefore, this will be discontinued. PAST MEDICAL HISTORY: Significant for: 1. Morbid obesity. 2. Insulin-dependent diabetes with diabetic neuropathy. 3. Multiple episodes of osteomyelitis status post transmetatarsal amputation of both feet. 4. Osteomyelitis of the right foot status post incision and drainage. Cultures positive for Streptococcus and methicillin-sensitive Staphylococcus aureus (MSSA) treated with dicloxacillin for three months with improvement of that foot. 5. Hyperlipidemia. 6. Depression. 7. Peripheral vascular disease. 8. History of methicillin-resistant Staphylococcus aureus (MRSA). PAST SURGICAL HISTORY: 1. Bilateral transmetatarsal amputation. 2. Cholecystectomy. 3. (C) section. 4. Tubal ligation. 5. Jaw surgery. 6. Removal of embedded needles in the right foot. SOCIAL HISTORY: She lives with her . She is . She denies alcohol, drug use or cigarette use. FAMILY HISTORY: Father of heart disease, mother of cancer. Her sister is a home health aide. REVIEW OF SYSTEMS: She denies any nausea, vomiting or diarrhea. She has a chronic rash an itching treated by dermatology. She has no pain in her feet, but had fevers at home. PHYSICAL EXAMINATION: Temperature T-max 101.4 yesterday, today 97.7, pulse 89, respirations 20, blood pressure 139/66, O2 saturation 97% on room air. HEART: Normal S1, S2. No murmurs, rubs or gallops. LUNGS: Clear. No wheezes, rales or rhonchi. ABDOMEN: Morbidly obese. Soft, nontender. EXTREMITIES: Pitting edema +1 bilaterally. No clubbing or cyanosis. Diffuse scratches with dried scabs on the lower shins and on the abdomen. Bilateral transmetatarsal amputation. Left foot has a large incision from the medial ulcer mid foot to the plantar aspect of the foot, the middle where the ulcer had been, an incision measuring about 10 cm. There is minimal serosanguinous discharge on the gauze. There is no tenderness. Right foot had an ulcer that is healing well. No tenderness or redness. She has a transmetatarsal amputation on the right foot, as well. The ulcer on the right foot is linear with no discharge. LABORATORIES: Sodium 135, potassium 4.5, chloride 101, bicarbonate 26, BUN 25, creatinine 1.76, glucose 143, hemoglobin A1C 10.8, calcium 8.9, magnesium 2. C-reactive protein (CRP) 25.9, down from 31.8. White count 17.8, hemoglobin 7.7, hematocrit 25.3, platelets 494. Erythrocyte sedimentation rate (ESR) 127. Blood cultures two sets no growth after 48 hours. Intraoperative wound cultures are pending, have many gram-negative rods and gram-positive cocci in pairs in both swabs. Cultures that were done in my office on July 16, 2020 before admission had Enterococcus (E) faecalis, Streptococcus oralis, Group B Streptococcus and Morganella morganii. Morganella is resistant to cephazolin, sensitive to levofloxacin. Group B Streptococcus was also sensitive to levofloxacin. IMPRESSION: This is a 55-year-old morbidly obese female with insulin-dependent diabetes, poorly controlled, chronic diabetic foot ulcers status post treatment of acute osteomyelitis of the right foot with dicloxacillin for the past three months with improvement of ulcer and infection. She had developed a callous on the left foot status post debridement and developed an infection, which is polymicrobial with Streptococcus, Enterococcus (E) faecalis, Morganella. The intraoperative culture is still pending. Currently, patient on levofloxacin and vancomycin. She underwent incision and drainage by Dr. Alicea and we are awaiting results of intraoperative cultures. PLAN: In the meantime, patient has poor access. Will order a peripherally inserted central catheter (PICC) line. She will probably need six weeks of IV antibiotics, as she is very noncompliant at home. Her PICC line is always a problem. She probably would need placement. Choice of antibiotic will depend on results of operative (OR) cultures. For the time being, continue with IV vancomycin and levofloxacin. Case has been discussed with Dr. Potter and Pavel Sweet regarding possible NH placement for IV antibiotic. [facility]
--- NOTE | 2020-07-20 11:40 | CR.PDOC ---
General Date of Consultation: Jul 20, [address] Canas HISTORY OF PRESENT ILLNESS: The patient is a 55-year-old female with chronic plantar ulcers, osteomyelitis status post bilateral transmetatarsal amputations, follows with Dr. August, Dr Thomas, Dr. Alicea reported to the emergency department 07/16/20 with increasing bloody and malodorous drainage from the left plantar foot wound, status post debridement as per Dr. Alicea 07/18/20. Vascular surgery consulted for PAD and lower extremities and patient with left foot osteomyelitis. ALLERGIES: Please see below. HOME MEDICATIONS: Please see below. PMH/PSH: IDDM Peripheral neuropathy, chronic plantar ulcers, Osteomyelitis s/p b/l transmetatrsal amputation Foot wounds managed by Dr. August and morbid obesity bmi 45, HTN dyslipidemia, bipolar disorder tubal ligation, c section, cholecystectomy, jaw surgery, removal of 2 embedded needles in right foot FAMILY HISTORY: Father: heart disease Mother: cancer SOCIAL HISTORY: Nonsmoker REVIEW OF SYSTEMS: As noted in HPI otherwise 10 point review systems unremarkable. PHYSICAL EXAMINATION: VITAL SIGNS: Please see below. GENERAL APPEARANCE: Sitting up in bed HEENT: Moist mucous membranes RESPIRATORY: No wheezing CARDIOVASCULAR: Regular rate and rhythm ABDOMEN: Soft, nontender EXTREMITIES: Dressings intact bilateral feet NEUROLOGICAL: Alert and oriented BLE arterial US INDICATION: nonhealing chronic diabetic ulcers r/o peripheral arterialds. COMPARISON: None. TECHNIQUE: Bilateral lower extremity arterial Doppler ultrasound. Ankle brachial indices are acquired. The distal most segments of the left posterior tibial and anterior tibial arteries could not be visualized due to patient's wound track and associated dressing. FINDINGS: Ankle brachial indices are measured at 1.09 on the right and 0.89 on the left. In the right lower extremity relatively normal triphasic and biphasic waveforms are noted in the arterial tracings except for the distal posterior tibial and distal anterior tibial arteries which demonstrate monophasic waveforms. Moderate plaquing is seen throughout. The distal anterior tibial artery on the right appears to have significant luminal narrowing and trickle of flow. There is evidence of a stenosis in the superficial femoral artery proximally on the left. Monophasic arterial waveforms are noted distal to this throughout the remainder of the left lower extremity arterial tree. Right lower extremity arterial Doppler velocity chart: Right APPRENTICE PSV 152 cm/S Profundal 158 Proximal SFA 182 Mid SFA 143 Distal SFA 140 Popliteal 121 Proximal JOEL 44 Tibial-peroneal trunk 170 Proximal HOME COORDINATOR 135 Distal HOME COORDINATOR 119 Distal JOEL 46/20 Left lower extremity arterial Doppler velocity chart: Left APPRENTICE PSV 169 cm/S Profundal 128 Proximal SFA 189/272 Mid SFA 142 Distal SFA 113 Popliteal 122 Proximal JOEL 70 Tibial-peroneal trunk 82 Proximal HOME COORDINATOR 107 Distal HOME COORDINATOR 110 Distal JOEL 58 IMPRESSION: Atherosclerotic disease as noted above. Trickle flow in the distal JOEL on the right. Monophasic waveforms of below a stenosis in the proximal SFA on the left. <Electronically signed by Fredo Sandhu > 07/18/20 1445 ASSESSMENT/PLAN: PAD/left foot osteomyelitis. Status post debridement as per Dr. Alicea. Follows with wound care as per Dr. August. IV antibiotics as per hospitalist/infectious disease. Arterial ultrasound is reviewed as per Dr. Canas. Possibly consider angiogram left lower extremity however the patient's renal function is noted to be declining. Possibly consider angiogram next week, hopefully this will provide some additional time for the patient's renal function will improve closer to baseline. Chronic kidney disease stage III This morning's labs indicate serum creatinine 1.98 with GFR 28. This is compared with 07/19 serum creatinine 1.76 and GFR 32. On admission serum creatinine 1.06 GFR 57. Vital Signs/I&O Vital Signs Date Time Temp Pulse Resp B/P (MAP) Pulse Ox O2 Delivery O2 Flow Rate FiO2 07/20/20 09:50 98 18 100 Room Air 07/20/20 09:14 99.5 07/20/20 08:30 165/82 I&O- Last 24 Hours up to 6 AM 07/20/20 06:00 Intake Total 2150 ml Output Total 1400 ml Balance 750 ml Laboratory Data Labs 24H Laboratory Tests 2 07/19/20 12:01: Bedside Glucose (Misc Panel) 201H 07/19/20 16:10: Vancomycin Level Trough 24.4H 07/19/20 17:21: Bedside Glucose (Misc Panel) 211H 07/19/20 17:51: Reticulocyte # (auto) 19.6, Percent Reticulocyte Count 0.6, Reticulocyte Hemoglobin Equivalent 23.5L, Iron Level 14L, Total Iron Binding Capacity 247L, Transferrin % Saturation 5.7L, Ferritin 196 07/19/20 19:50: Bedside Glucose (Misc Panel) 218H 07/20/20 05:21: Nucleated Red Blood Cells % (auto) 0.1H, Erythrocyte Sedimentation Rate 128H, A nion Gap 6L, Glomerular Filtration Rate 28.1L, Calcium Level 9.4, Magnesium Level 1.9, C-Reactive Protein, Quantitative 21.90H 07/20/20 06:22: Methicillin-Resist S.aureus DNA PCR NOT DETECTED CBC/BMP Laboratory Tests 07/19/20 17:51 07/20/20 05:21 Microbiology Microbiology 07/17/20 Gram Stain - Final, Resulted 07/17/20 Wound Culture, Resulted Pending 07/17/20 Anaerobic Culture, Resulted Pending 07/17/20 Gram Stain - Final, Resulted 07/17/20 Wound Culture - Preliminary, Resulted Enterococcus Faecalis Corynebacterium Species 07/17/20 Blood Culture - Preliminary, Resulted No Growth after 48 hours. All Specime... 07/17/20 Blood Culture - Preliminary, Resulted No Growth after 48 hours. All Specime... Allergies Coded Allergies: cefazolin (Verified Allergy, Intermediate, hives, 11/23/19) HAS HAD CEFTRIAXONE IN THE PAST fluoxetine (Verified Allergy, Intermediate, hives, 11/23/19) pseudoephedrine (Verified Allergy, Intermediate, hives, 11/23/19) trazodone (Verified Allergy, Intermediate, hives, 11/23/19) Home Medications Scheduled Amlodipine Besylate (Amlodipine Besylate) 10 Mg Tablet, 10 MG PO DAILY, (Reported) Aspirin (Aspirin EC) 81 Mg Tablet.dr, 81 MG PO DAILY, (Reported) Atorvastatin Calcium (Atorvastatin Calcium) 40 Mg Tab, 40 MG PO QHS, (Reported) Dulaglutide (Trulicity) 1.5 Mg/0.5 Ml Pen.injctr, 1.5 MG SC QWEEK, (Reported) WEDNESDAYS Duloxetine HCl (Duloxetine HCl) 60 Mg Capsule.dr, 60 MG PO DAILY, (Reported) Gabapentin (Gabapentin) 300 Mg Capsule, 300 MG PO TID, (Reported) Insulin Glargine,Hum.rec.anlog (Basaglar Kwikpen U-100) 100 Unit/1 Ml Insuln.pen, 55 UNIT SC BID, (Reported) Insulin Lispro (Admelog) 100 Unit/1 Ml Vial, 1 DOSE SC AC, (Reported) PER SLIDING SCALE Levocetirizine Dihydrochloride (Levocetirizine Dihydrochloride) 5 Mg Tablet, 5 MG PO QHS, (Reported) Levofloxacin (Levofloxacin) 750 Mg Tablet, 750 MG PO QHS, (Reported) FILLED 07/16/20 FOR 10 DAYS Losartan Potassium (Losartan Potassium) 100 Mg Tablet, 100 MG PO QHS, (Reported) Metformin HCl (Metformin HCl) 1,000 Mg Tab, 1,000 MG PO BID, (Reported) Spironolactone (Spironolactone) 25 Mg Tablet, 25 MG PO DAILY, (Reported) Scheduled PRN Ibuprofen (Ibuprofen) 600 Mg Tablet, 600 MG PO Q6H PRN for PAIN, (Reported) with food Shauna Medina Jul 20, 2020 11:40
[2020-07-20] MEDS ORDERED: NS 1,000 ML IV SCH (13:15)
[2020-07-20 14:32] VITALS: BP 142/59
[2020-07-20] MEDS: PIPERACILLIN/TAZOBACTAM SOD 2.25 GM in D5W MINI-BAG PLUS 50 ML IV SCH ×2 (14:40→22:22)
[2020-07-20 15:35] VITALS: BP 111/68
--- NOTE | 2020-07-20 15:47 | REP ---
PROCEDURE NAME: PICC LINE INSERTION W/SITERITE CLINICAL INFORMATION: poor iv access/osteomyelitis of left foot. COMPARISON: None. PROCEDURE DESCRIPTION: The procedure was performed by LEONID Viveros, under the direct supervision of Dr. García. The risks and benefits of the procedure were explained to the patient and an informed consent was obtained both verbally and written. Directly prior to the start of the procedure a formal time-out was completed in the procedure room. The left basilic vein was localized using ultrasound guidance. The skin was prepped and draped in sterile fashion. One mL of 1% lidocaine 10 mg/mL was used as a local anesthetic. Using ultrasound guidance the left basilic vein was cannulated, and a 0.018 guidewire was inserted and advanced to the level of SVC using fluoroscopic guidance. The needle was removed and a 5.5 Libyan dilator and peel-away sheath was inserted over the guidewire. A 5.5 Libyan dual lumen catheter was cut to a length of 40 cm. The dilator was removed and the catheter was inserted over the guidewire with the tip ending at the level of the SVC. The peel-away sheath was removed and the catheter was flushed with heparinized saline as per hospital protocol. The catheter was affixed to the skin and a sterile dressing was applied. The patient tolerated the procedure well and there were no immediate complications. CONCLUSION: PICC line insertion into the left basilic vein. 0.3 minutes of fluoroscopy time was utilized for this procedure. Some fluoroscopic images are performed with last image hold technology. These images require no additional radiation. <Electronically signed by Rabia Gutierrez > 07/20/20 1025 <Electronically signed by Keith García > 07/20/20 [id number]
[2020-07-20] MEDS: SODIUM CHLORIDE 0.9% INJ 10 ML SYR IV SCH (17:22)
[2020-07-20] MEDS ORDERED: LIDOCAINE 2% 100MG/5ML SDV (FOR ANES.) As Ordered ONE (17:33)
[2020-07-20] MEDS ORDERED: MIDAZOLAM INJ 2MG/2ML VIAL (J2250 PER 1MG) As Ordered ONE (17:33)
[2020-07-20] MEDS ORDERED: ONDANSETRON 4MG/2ML VIAL As Ordered ONE ×2 (17:33→20:41)
[2020-07-20] MEDS ORDERED: dexameTHASONE 4 MG/ML 1ML VIAL (J1100 PER 1MG) As Ordered ONE (17:33)
[2020-07-20] MEDS ORDERED: propofoL 500 MG/50 ML VIAL As Ordered ONE (17:33)
[2020-07-20] MEDS ORDERED: fentaNYL 100 MCG/2 ML INJECTION (J3010) As Ordered ONE (17:33)
[2020-07-20] MEDS: D5W/0.9% SODIUM CHLORIDE 1,000 ML IV SCH ×2 (17:38→22:22)
[2020-07-20] MEDS ORDERED: BUPIVACAINE HCL 0.5% 10ML VIAL As Ordered ONE (18:24)
[2020-07-20] MEDS ORDERED: LIDOCAINE 2% MDV 20ML VIAL As Ordered ONE (18:24)
--- NOTE | 2020-07-20 18:25 | IPN ---
PROGRESS NOTE DATE: 07/20/2020 Iliana has no complaints today. She has had no fevers. She actually feels better. She had a maximum temperature on July 18 of 101.4 but afebrile since then. She has no nausea, vomiting, diarrhea, or abdominal pain. She is receiving intravenous (IV) fluids for acute kidney injury. Seems a little more edematous. Dr. Alicea is taking her back to the operating room for more debridement. PHYSICAL EXAMINATION: Temperature 99.5, pulse 97, respirations 18, blood pressure 165/82, oxygen saturation 98% on room air. HEART: Normal S1, S2. No murmurs, rubs, or gallops. LUNGS: Clear. No wheezes, rales, or rhonchi. Diminished at the bases. ABDOMEN: Morbidly obese, soft, nontender. EXTREMITIES: Transmetatarsal amputations of both feet. Diminished pulses bilaterally. Right foot has an open ulcer healing well with granulation tissue measuring about 11 x 8 cm with minimal drainage. There is Hydrofera Blue and a Kerlix dressing. Left foot has an open ulcer at the plantar aspect of the foot that has been incision and drained (I and D) and opened medially, at least an incision of 13 cm with surrounding maceration, serosanguineous discharge. No tenderness. Patient has no feeling in both feet. LABORATORY DATA: White count 20.7, hemoglobin 8.2, hematocrit 28, platelets 578, ESR 128. Sodium 136, potassium 4.7, chloride 103, bicarbonate 27, BUN 39, creatinine 1.98, glucose 180, calcium 9.4, magnesium 1.9. CRP 21.9. Intraoperative culture had Enterococcus (E) faecalis, Corynebacterium species. Still preliminary. Blood cultures are negative. MRI of foot showed osteomyelitis involving the 2nd and 3rd distal metatarsals with abnormal enhancement. There is fluid in the tendon sheath. IMPRESSION: 1. Left foot abscess with acute osteomyelitis of 2nd and 3rd distal metatarsal, on intravenous (IV) Levaquin and vancomycin with worsening leukocytosis. Levaquin will be switched to Zosyn for better gram-negative and anaerobic coverage. 2. History of chronic osteomyelitis of the right foot, previously culture positive for methicillin-sensitive Staphylococcus aureus (MSSA) and group B streptococcus. Patient had been on dicloxacillin up until the day of admission for the right foot. 3. Insulin-dependent diabetes with poor compliance and HbA1c over 10. PLAN: Case has been discussed with Dr. Alicea, who is taking her back to the operating room. Dr. August has done a wound consult as well and recommended Hydrofera Blue. Discontinue IV Levaquin. Switch to IV Zosyn at 2.25 grams every 6 hours due to kidney injury, and continue vancomycin, keeping troughs between 15-20.
[2020-07-20 18:26] LABS: CALCIUM LEVEL 9.6 MG/DL (8.5-10.1); CREATININE FOR GFR 1.86 MG/DL (0.55-1.30); GLOMERULAR FILTRATION RATE 30.2 (>51); POTASSIUM SERUM 4.2 MEQ/L (3.5-5.1)
[2020-07-20] MEDS ORDERED: GENTAMICIN SULF 80MG/2ML VIAL As Ordered ONE (18:48)
[2020-07-20] MEDS ORDERED: KETOROLAC 60MG 2ML VIAL As Ordered ONE (20:41)
[2020-07-20] MEDS ORDERED: LR 1,000 ML IV SCH (21:15)
[2020-07-20] MEDS ORDERED: ONDANSETRON 4MG/2ML VIAL IV PRN (21:15)
[2020-07-20] MEDS ORDERED: oxyCODONE 5MG TAB PO PRN (21:15)
[2020-07-20 21:34] VITALS: BP 141/59
[2020-07-20] MEDS: ATORVASTATIN 20 MG TAB PO SCH (22:27)
[2020-07-20 22:34] VITALS: BP 137/59
[2020-07-20] MEDS: MORPHINE 4 MG/ML 1ML VIAL/SYRINGE (J2270) IV PRN (23:06)
[2020-07-20 23:15] VITALS: BP 104/85
[2020-07-21] VITALS (18 sets, daily range): BP systolic 126–148; BP diastolic 59–87
[2020-07-21] MEDS: PIPERACILLIN/TAZOBACTAM SOD 2.25 GM in D5W MINI-BAG PLUS 50 ML IV SCH ×4 (02:57→21:08)
[2020-07-21] MEDS ORDERED: VANCOMYCIN HCL 750 MG, VIAL MATE ADAPTER 1 EACH in D5W 250 ML IV SCH ×2 (04:00→05:00)
[2020-07-21] MEDS: SODIUM CHLORIDE 0.9% INJ 10 ML SYR IV SCH ×2 (05:25→16:47)
[2020-07-21 07:21] LABS: HEMATOCRIT 22.4 % (36.0-47.0); MEAN CORPUSCULAR HEMOGLOBIN 23.4 pg (27.0-33.0); MEAN CORPUSCULAR HGB CONC 29.5 g/dl (32.0-36.5); MEAN CORPUSCULAR VOLUME 79.4 fl (80.0-96.0); PLATELET COUNT, AUTOMATED 506 10^3/uL (150-450); RED BLOOD COUNT 2.82 10^6/uL (4.00-5.40); WHITE BLOOD COUNT 17.6 10^3/uL (4.0-10.0)
[2020-07-21 07:28] LABS: HEMOGLOBIN 6.6 g/dl (12.0-15.5)
[2020-07-21 07:44] LABS: CALCIUM LEVEL 8.8 MG/DL (8.5-10.1); CREATININE FOR GFR 1.94 MG/DL (0.55-1.30); GLOMERULAR FILTRATION RATE 28.7 (>51); MAGNESIUM LEVEL 1.9 MG/DL (1.8-2.4); POTASSIUM SERUM 4.8 MEQ/L (3.5-5.1)
[2020-07-21] MEDS: ASPIRIN 81 MG ENTERIC TAB PO SCH (09:06)
[2020-07-21] MEDS: GABAPENTIN 300 MG CAP PO SCH ×3 (09:06→21:09)
[2020-07-21] MEDS: amLODIPine 10 MG TAB PO SCH (09:07)
[2020-07-21] MEDS: HumaLOG INSULIN (NovoLOG) PER UNIT SC SCH ×4 (09:07→21:10)
[2020-07-21] MEDS: DULoxetine 30 MG CAP (CYMBALTA) PO SCH (09:07)
[2020-07-21] MEDS: LEVEMIR (INSULIN DETEMIR) 1 UNITS/0.01ML SC SCH ×2 (09:08→21:11)
[2020-07-21] MEDS ORDERED: diphenhydrAMINE 25MG CAP PO ONE (09:45)
[2020-07-21] MEDS ORDERED: ACETAMINOPHEN TAB 650MG DOSE (2X325MG) PO ONE (09:45)
--- NOTE | 2020-07-21 10:57 | IPNPDOC ---
Date Seen The patient was seen on 07/21/20. Progress Note SUBJECTIVE: anemic ordered 2urbc tx. denies brbpr, melena,black stools, n/v/hematemesis or coffee ground emesis, abd pain, sob, cp, pressure, tightness. no pain in left foot s/p debridement 07/20/[address] mon. requesting foam to elevate her left foot OBJECTIVE: PHYSICAL EXAMINATION: VITAL SIGNS: seebelow GENERAL APPEARANCE:eating at the bedside no distress HEENT: moist mm thick neck no jvd CARDIOVASCULAR: S1S2 RRR LUNGS: AEBE CTAB ABDOMEN: obese soft nt nd +bs no hsm no rebound or guarding EXTREMITIES: b/l transmetatarsal amputation b/l bandaged feet LABORATORY DATA: See below. IMAGIN07/17/20 XRAY LEFT FOOT INDICATION: L foot pain/drainage. COMPARISON: No comparison left foot radiographs.. TECHNIQUE: Four views. FINDINGS: Four views of the left foot demonstrate a prior transmetatarsal amputation of the forefoot. The entire 5th metatarsal has been removed. There is diffuse soft tissue swelling about the stump and midfoot. There is soft tissue emphysema in the medial soft tissues at midfoot level. There is a 2 cm focal deficit in the soft tissues adjacent to the remaining 1st metatarsal along the plantar aspect consistent with a large plantar ulcer. Plantar and Achilles calcaneal heel spurs are noted. There is some midfoot osteoarthritic change. No acute bony erosive changes are noted.. No fracture or subluxation is seen. No opaque foreign body noted. IMPRESSION: Diffuse soft tissue swelling. There is soft tissue emphysema in the swollen medial soft tissues at midfoot level. A 2 cm focal soft tissue ulcer is seen along the plantar aspect. Patient is status post transmetatarsal forefoot amputation. Osteoarthritic changes are noted. No acute erosive changes are seen. No opaque foreign body noted.. <Electronically signed by Fredo Sandhu > 07/17/20 1641 MRI LEFT FOOT 07/17/20 Exam: MR Left Lower Extremity Other Than Joint Without and With Contrast; Foot Exam date and time: 07/17/2020 7:38 PM Age: 55 years old Clinical indication: Cellulitis; Foot; Left; Prior surgery; Surgery date: 6+ months; Surgery type: Amputation; Additional info: R/O osteo L foot TECHNIQUE: Imaging protocol: MR of the Left lower extremity without and with intravenous contrast. Exam focused on the foot. Contrast material: PROHANCE; Contrast volume: 11 ml; Contrast route: INTRAVENOUS (IV); COMPARISON: MRI FOOT WITHOUT CONTRAST 11/23/2019 3:39 PM FINDINGS: Bones and cartilage: Status post amputation of the 1st through 5th toes at the mid metatarsals. Abnormal marrow space signal demonstrated in the distal 2nd and 3rd metatarsals with abnormal enhancement on post gadolinium imaging consistent with osteomyelitis. Joint spaces: Unremarkable. No joint effusion. LIGAMENTS: Lisfranc ligament: Unremarkable. No evidence of tear. TENDONS: Flexor tendons of foot: Fluid demonstrated in the tendon sheath of the flexor hallucis longus consistent with synovitis. Tendon appears unremarkable. Tibialis posterior tendon: Fluid demonstrated in the tendon sheath of the tibialis posterior tendon consistent with synovitis. Tendon appears intrinsically unremarkable. Peroneal tendons: Unremarkable as visualized. Extensor tendons of foot: Unremarkable. No evidence of tear. Tibialis anterior tendon: Unremarkable as visualized. Tarsal canal (Sinus tarsi): Unremarkable. Tarsal tunnel: Unremarkable. Muscles: Diffuse enhancement of the intrinsic muscles of the foot, findings which can be seen in association with myositis. Soft tissues: Diffuse edema demonstrated in the foot with subcutaneous fluid as well as skin thickening consistent with cellulitis. Focal inflammatory mass demonstrated on the plantar aspect of the foot deep to a large ulcer crater measures 1.8 x 1.8 x 2.1 cm associated with regional gas and teardrop shaped fluid collection, findings consistent with an abscess. Fluid demonstrated in the synovium of the talonavicular joint. Plantar fascia: Unremarkable as visualized. IMPRESSION: 1. Status post amputation of the 1st through 5th toes at the mid metatarsals. 2. Abnormal marrow space signal demonstrated in the distal 2nd and 3rd metatarsals with abnormal enhancement on post gadolinium imaging consistent with osteomyelitis. 3. Fluid demonstrated in the tendon sheath of the tibialis posterior tendon consistent with synovitis. Tendon appears intrinsically unremarkable. 4. Diffuse enhancement of the intrinsic muscles of the foot, findings which can be seen in association with myositis. 5. Diffuse soft tissue edema with a focal abscess demonstrated on the plantar aspect of the foot. 6. Synovitis demonstrated in the tendon sheath of the flexor hallucis longus and tibialis posterior tendon. Electronically signed by: Carlos Ramírez On 07/17/2020 20:11:32 PM MICROBIOLOGY: Please see below. PROCEDURES: 07/17/20 DATE OF OPERATION: 07/17/2020 PREOPERATIVE DIAGNOSIS: Deep abscess formation, possible osteomyelitis plantar surface left foot. POSTOPERATIVE DIAGNOSIS: Deep abscess formation, possible osteomyelitis plantar surface left foot. PROCEDURE: Incision and drainage multiple abscesses plantar surface left foot. SURGEON: Justin Mon DPM BRAND ADVOCATE: None. ANESTHESIA: Local MAC. IRRIGATION: Dilute Gentamicin solution, 3 liters, low pressure pulse lavage system. DRAINS UTILIZED: inch Iodoform gauze. ESTIMATED BLOOD LOSS: 100 mL. DESCRIPTION OF PROCEDURE: On 07/17/2020 this 55-year-old female was taken from hospital room to the operating room, placed on the operating table in the supine position. Following induction of IV sedation and local regional anesthesia left lower extremity was prepped and draped in usual aseptic manner. Attention was directed to the patient's plantar surface of the left foot. There was noted to be an ulceration measuring approximately 2 cm x 2 cm. This ulcer tunneled in proximal direction 7 cm and approximately 2 cm distally. Utilizing sterile scalpel dissection was carried deep along this tunneling abscessed area. Upon incision there were several milliliters of purulent material which was cultured aerobically and anaerobically. There was an area of necrotic tissue as well in the central aspect measuring 1 cm x 1 cm which was sharply debrided. The ulcer extended to the plantar fascia and extended in proximal direction and was followed distally. Adventitious bursal formation was noted which was debrided. Using palpation the abscess ulceration area did not extend to bone along the 1st or 2nd metatarsal, the 3rd metatarsal could not be palpated. Therefore, the debridement was not carried to bone. Utilizing 3 liters of dilute Gentamicin the area was copiously irrigated with low pressure pulse lavage system. All bleeders as encountered were electrocoagulated. The wound was packed with inch Iodoform gauze and sterile dressing was applied consisting of ABD, 4 x 4s, Kerlix and Omer wrap. The Omer wrap was used just to support the bandage, no compression was utilized. The patient having apparently tolerated the surgical procedure well was taken from the OR to the recovery room for further monitoring by the anesthesia department. Postoperative instructions were given upon discharge. The patient will be placed on IV antibiotics until culture becomes available. DD: Justin Mon DPM 01/19/21 2143 ASSESSMENT: 55 y/o F w pmh dm, neuropathy, chronic plantar ulcers, om s/p b/l transmetatrsal amputations, right plantar diabetic nelson grade [address] August and , morbid obesity bmi 45, Osteomyelitis of right foot 1st metatarsal 2015 w group B strep and strep mitis,iddm, HTN< dyslipidemia, bipolar, MRSA carrier, chronic osteo right foot and ankle was seen by ID Dr. Thomas on 07/16/20 and found to have increasing bloody and malodorous drainage out of the left plantar foot with fever 101, started on levaquin. Blood work and wound cultures were taken in the office, and pt was called to come to the ER today for admission for sepsis wbc 18 for left foot diabetic infection r/o osteomyelitis. Left distal 2nd and 3rd metatarsal osteomyelitis/ left plantar foot abscess 1.8x1.8 x 2.1 cm/ left foot myositis/ flexor hallucis longus and tibialis posterior tendon synovitis anemia s/p 2u rbc transfusion Acute kidney injury Lost IV access s/p picc line DM2 w neuropathy Peripheral Arterial disease morbid obesity bmi 45 Metabolic syndrome HTN dyslipidemia bipolar disorder MRSA carrier s/p b/l transmetatarsal amputations of feet PLAN: resolving arf on ivfluids. avoided nephrotoxins and renally dosed meds. s/p debriedment 07/19/20 by podiatry on broadspectrum zosyn and vanco until cx's finalized managed by ID dr. Thomas. s/p 2urbc transfusion w/o overt gi bleed. s/p piccline . elevate left foot. pt/ot. postop mgt per redevelopment manager. VS, I&O, 24H, Fishbone Vital Signs/I&O Vital Signs Date Time Temp Pulse Resp B/P (MAP) Pulse Ox O2 Delivery O2 Flow Rate FiO2 07/21/20 04:42 94 Nasal Cannula 1.0 07/21/20 04:00 97.8 75 18 127/66 (86) I&O- Last 24 Hours up to 6 AM 07/21/20 06:00 Intake Total 3211 ml Output Total 1360 ml Balance 1851 ml Laboratory Data 24H LABS Laboratory Tests 2 07/20/20 11:50: Bedside Glucose (Misc Panel) 148H 07/20/20 16:56: Bedside Glucose (Misc Panel) 70 07/20/20 17:43: Anion Gap 10, Glomerular Filtration Rate 30.2L, Calcium Level 9.6 07/20/20 22:03: Bedside Glucose (Misc Panel) 129H 07/20/20 23:51: Vancomycin Level Trough 19.1 07/21/20 06:54: Nucleated Red Blood Cells % (auto) 0.0, Anion Gap 7L, Glomerular Filtration Rate 28.7L, Calcium Level 8.8, Magnesium Level 1.9 CBC/BMP Laboratory Tests 07/20/20 17:43 07/21/20 06:54 Microbiology Microbiology 07/20/20 Anaerobic Culture, Received Pending 07/20/20 Gram Stain - Final, Resulted 07/20/20 Abscess Culture, Resulted Pending 07/17/20 Gram Stain - Final, Resulted 07/17/20 Wound Culture - Final, Resulted Corynebacterium Species Strep Agalactiae Group B Enterococcus Faecalis Streptococcus Gordonii 07/17/20 Anaerobic Culture, Resulted Pending 07/17/20 Gram Stain - Final, Resulted 07/17/20 Wound Culture - Preliminary, Resulted Enterococcus Faecalis Corynebacterium Species 07/17/20 Blood Culture - Preliminary, Resulted No Growth after 72 hours. All specime... 07/17/20 Blood Culture - Preliminary, Resulted No Growth after 72 hours. All specime... JAYMIE NEVAREZ MD Jul 21, 2020 07:56
--- NOTE | 2020-07-21 13:46 | RO ---
OPERATIVE NOTE DATE OF OPERATION: 07/20/2020 PREOPERATIVE DIAGNOSIS: Abscess dorsal and plantar foot, left foot. POSTOPERATIVE DIAGNOSIS: Abscess dorsal and plantar foot, left foot. PROCEDURE: Incision and drainage of complex abscess, left foot. SURGEON: Justin Alicea DPM IRRIGATION: Dilute Gentamicin solution 3 liters, low pressure pulse lavage system. HEMOSTASIS: None. ESTIMATED BLOOD LOSS: 10 mL. BENCH BORING MACHINE OPERATOR: None. ANESTHESIA: Local MAC. DESCRIPTION OF PROCEDURE: On 07/20/2020 this 55-year-old female was taken from hospital room to the operating room and placed on the operating table in supine position. Following the induction of IV sedation and local regional anesthesia left lower extremity was prepped and draped in usual aseptic manner. There was a previous incision and drainage on the plantar aspect of the foot measuring approximately 12 cm total. There was an area of depression on the anterior aspect of the foot in the region of the anterior tibial tendon. An incision was made from this area opening an abscess with approximately 10 mL of purulent material which was sent for aerobic and anaerobic cultures. The wound was explored. The abscess did indeed communicate with the plantar surface of the foot. This was incised measuring approximately 7 cm in length. Using a low pressure pulse lavage system 3 liters of fluid was used to irrigate the wound on the dorsal and plantar aspects of the foot. It was packed with inch Iodoform gauze and dry, sterile dressing was applied consisting of 4 x 4s, ABDs and Kerlix. An Omer wrap was utilized. However, no compression was utilized on the Omer wrap; this was just to enforce the integrity of the bandage. The patient having apparently tolerated the surgical procedure well was taken from the OR to the recovery room for further monitoring by anesthesia department.
--- NOTE | 2020-07-21 16:43 | IPNPDOC ---
Date Seen The patient was seen on 07/21/20. Progress Note Patient seen and examined. We'd like to add her on for an arteriogram to help improve arterial perfusion to try to help with wound healing status post debridements by Dr. Alicea, but the patient still has unchanged acute renal insufficiency. Her creatinine is still greater than 1.9 and her GFR is still 28, baseline is normal with a GFR greater than 60. Recommend nephrology consult. We hope to add her on possibly Thursday evening for an arteriogram, but at this point is unsafe with her current renal insufficiency. We will continue to follow. We appreciate Obtained to produce patent care of this patient. VS, I&O, 24H, Fishbone Vital Signs/I&O Vital Signs Date Time Temp Pulse Resp B/P (MAP) Pulse Ox O2 Delivery O2 Flow Rate FiO2 07/21/20 15:50 98.0 77 16 127/64 92 Room Air 07/21/20 04:42 1.0 I&O- Last 24 Hours up to 6 AM 07/21/20 06:00 Intake Total 3211 ml Output Total 1360 ml Balance 1851 ml Laboratory Data 24H LABS Laboratory Tests 2 07/20/20 16:56: Bedside Glucose (Misc Panel) 70 07/20/20 17:43: Anion Gap 10, Glomerular Filtration Rate 30.2L, Calcium Level 9.6 07/20/20 22:03: Bedside Glucose (Misc Panel) 129H 07/20/20 23:51: Vancomycin Level Trough 19.1 07/21/20 06:54: Nucleated Red Blood Cells % (auto) 0.0, Anion Gap 7L, Glomerular Filtration Rate 28.7L, Calcium Level 8.8, Magnesium Level 1.9 07/21/20 11:26: Bedside Glucose (Misc Panel) 321H CBC/BMP Laboratory Tests 07/20/20 17:43 07/21/20 06:54 Microbiology Microbiology 07/20/20 Anaerobic Culture, Received Pending 07/20/20 Gram Stain - Final, Resulted 07/20/20 Abscess Culture, Resulted Pending 07/17/20 Gram Stain - Final, Resulted 07/17/20 Wound Culture - Final, Resulted Corynebacterium Species Strep Agalactiae Group B Enterococcus Faecalis Streptococcus Gordonii 07/17/20 Anaerobic Culture, Resulted Pending 07/17/20 Gram Stain - Final, Resulted 07/17/20 Wound Culture - Preliminary, Resulted Enterococcus Faecalis Corynebacterium Species 07/17/20 Blood Culture - Preliminary, Resulted No Growth after 72 hours. All specime... 07/17/20 Blood Culture - Preliminary, Resulted No Growth after 72 hours. All specime... JERRY QUIÑONES MD Jul 21, 2020 16:43
[2020-07-21] MEDS: NS 1,000 ML IV SCH (16:46)
[2020-07-21] MEDS: ATORVASTATIN 20 MG TAB PO SCH (21:09)
[2020-07-21] MEDS: MORPHINE 4 MG/ML 1ML VIAL/SYRINGE (J2270) IV PRN (21:19)
[2020-07-22] MEDS: NS 1,000 ML IV SCH ×2 (02:27→09:45)
[2020-07-22] MEDS: PIPERACILLIN/TAZOBACTAM SOD 2.25 GM in D5W MINI-BAG PLUS 50 ML IV SCH ×4 (02:27→21:03)
[2020-07-22] MEDS: SODIUM CHLORIDE 0.9% INJ 10 ML SYR IV SCH ×3 (05:48→17:55)
[2020-07-22 06:23] VITALS: BP 178/79
[2020-07-22] MEDS ORDERED: VANCOMYCIN HCL 750 MG, VIAL MATE ADAPTER 1 EACH in D5W 250 ML IV SCH ×2 (07:00→08:00)
[2020-07-22] MEDS ORDERED: hydrOXYzine 25 MG TAB PO PRN (07:15)
--- NOTE | 2020-07-22 07:17 | IPNPDOC ---
Date Seen The patient was seen on 07/22/20. Progress Note SUBJECTIVE: c/o rhinorrhea unable to sleep and pruritus due to skin prep for picc line requesting atarax. no pain fever chills cough denies acute gi bleed OBJECTIVE: PHYSICAL EXAMINATION: VITAL SIGNS: seebelow GENERAL APPEARANCE:asleep but arousable no distress HEENT: moist mm thick neck no jvd no cervical lad CARDIOVASCULAR: S1S2 RRR LUNGS: AEBE CTAB ABDOMEN: obese soft nt nd +bs no hsm no rebound or guarding EXTREMITIES:left arm picc line b/l transmetatarsal amputation b/l bandaged feet SKIN: no maculopapular erythematous rash LABORATORY DATA: See below. IMAGIN07/17/20 XRAY LEFT FOOT INDICATION: L foot pain/drainage. COMPARISON: No comparison left foot radiographs.. TECHNIQUE: Four views. FINDINGS: Four views of the left foot demonstrate a prior transmetatarsal amputation of the forefoot. The entire 5th metatarsal has been removed. There is diffuse soft tissue swelling about the stump and midfoot. There is soft tissue emphysema in the medial soft tissues at midfoot level. There is a 2 cm focal deficit in the soft ti ssues adjacent to the remaining 1st metatarsal along the plantar aspect consistent with a large plantar ulcer. Plantar and Achilles calcaneal heel spurs are noted. There is some midfoot osteoarthritic change. No acute bony erosive changes are noted.. No fracture or subluxation is seen. No opaque foreign body noted. IMPRESSION: Diffuse soft tissue swelling. There is soft tissue emphysema in the swollen medial soft tissues at midfoot level. A 2 cm focal soft tissue ulcer is seen along the plantar aspect. Patient is status post transmetatarsal forefoot amputation. Osteoarthritic changes are noted. No acute erosive changes are seen. No opaque foreign body noted.. <Electronically signed by Fredo Sandhu > 07/17/20 1641 MRI LEFT FOOT 07/17/20 Exam: MR Left Lower Extremity Other Than Joint Without and With Contrast; Foot Exam date and time: 07/17/2020 7:38 PM Age: 55 years old Clinical indication: Cellulitis; Foot; Left; Prior surgery; Surgery date: 6+ months; Surgery type: Amputation; Additional info: R/O osteo L foot TECHNIQUE: Imaging protocol: MR of the Left lower extremity without and with intravenous contrast. Exam focused on the foot. Contrast material: PROHANCE; Contrast volume: 11 ml; Contrast route: INTRAVENOUS (IV); COMPARISON: MRI FOOT WITHOUT CONTRAST 11/23/2019 3:39 PM FINDINGS: Bones and cartilage: Status post amputation of the 1st through 5th toes at the mid metatarsals. Abnormal marrow space signal demonstrated in the distal 2nd and 3rd metatarsals with abnormal enhancement on post gadolinium imaging consistent with osteomyelitis. Joint spaces: Unremarkable. No joint effusion. LIGAMENTS: Lisfranc ligament: Unremarkable. No evidence of tear. TENDONS: Flexor tendons of foot: Fluid demonstrated in the tendon sheath of the flexor hallucis longus consistent with synovitis. Tendon appears unremarkable. Tibialis posterior tendon: Fluid demonstrated in the tendon sheath of the tibialis posterior tendon consistent with synovitis. Tendon appears intrinsically unremarkable. Peroneal tendons: Unremarkable as visualized. Extensor tendons of foot: Unremarkable. No evidence of tear. Tibialis anterior tendon: Unremarkable as visualized. Tarsal canal (Sinus tarsi): Unremarkable. Tarsal tunnel: Unremarkable. Muscles: Diffuse enhancement of the intrinsic muscles of the foot, findings which can be seen in association with myositis. Soft tissues: Diffuse edema demonstrated in the foot with subcutaneous fluid as well as skin thickening consistent with cellulitis. Focal inflammatory mass demonstrated on the plantar aspect of the foot deep to a large ulcer crater measures 1.8 x 1.8 x 2.1 cm associated with regional gas and teardrop shaped fluid collection, findings consistent with an abscess. Fluid demonstrated in the synovium of the talonavicular joint. Plantar fascia: Unremarkable as visualized. IMPRESSION: 1. Status post amputation of the 1st through 5th toes at the mid metatarsals. 2. Abnormal marrow space signal demonstrated in the distal 2nd and 3rd metatarsals with abnormal enhancement on post gadolinium imaging consistent with osteomyelitis. 3. Fluid demonstrated in the tendon sheath of the tibialis posterior tendon consistent with synovitis. Tendon appears intrinsically unremarkable. 4. Diffuse enhancement of the intrinsic muscles of the foot, findings which can be seen in association with myositis. 5. Diffuse soft tissue edema with a focal abscess demonstrated on the plantar aspect of the foot. 6. Synovitis demonstrated in the tendon sheath of the flexor hallucis longus and tibialis posterior tendon. Electronically signed by: Carlos Ramírez On 07/17/2020 20:11:32 PM MICROBIOLOGY: Please see below. PROCEDURES: 07/17/20 DATE OF OPERATION: 07/17/2020 PREOPERATIVE DIAGNOSIS: Deep abscess formation, possible osteomyelitis plantar surface left foot. POSTOPERATIVE DIAGNOSIS: Deep abscess formation, possible osteomyelitis plantar surface left foot. PROCEDURE: Incision and drainage multiple abscesses plantar surface left foot. SURGEON: Justin Alicea DPM LEGAL WRITING PROFESSOR: None. ANESTHESIA: Local MAC. IRRIGATION: Dilute Gentamicin solution, 3 liters, low pressure pulse lavage system. DRAINS UTILIZED: inch Iodoform gauze. ESTIMATED BLOOD LOSS: 100 mL. DESCRIPTION OF PROCEDURE: On 07/17/2020 this 55-year-old female was taken from hospital room to the operating room, placed on the operating table in the supine position. Following induction of IV sedation and local regional anesthesia left lower extremity was prepped and draped in usual aseptic manner. Attention was directed to the patient's plantar surface of the left foot. There was noted to be an ulceration measuring approximately 2 cm x 2 cm. This ulcer tunneled in proximal direction 7 cm and approximately 2 cm distally. Utilizing sterile scalpel dissection was carried deep along this tunneling abscessed area. Upon incision there were several milliliters of purulent material which was cultured aerobically and anaerobically. There was an area of necrotic tissue as well in the central aspect measuring 1 cm x 1 cm which was sharply debrided. The ulcer extended to the plantar fascia and extended in proximal direction and was followed distally. Adventitious bursal formation was noted which was debrided. Using palpation the abscess ulceration area did not extend to bone along the 1st or 2nd metatarsal, the 3rd metatarsal could not be palpated. Therefore, the debridement was not carried to bone. Utilizing 3 liters of dilute Gentamicin the area was copiously irrigated with low pressure pulse lavage system. All bleeders as encountered were electrocoagulated. The wound was packed with inch Iodoform gauze and sterile dressing was applied consisting of ABD, 4 x 4s, Kerlix and Omer wrap. The Omer wrap was used just to support the bandage, no compression was utilized. The patient having apparently tolerated the surgical procedure well was taken from the OR to the recovery room for further monitoring by the anesthesia department. Postoperative instructions were given upon discharge. The patient will be placed on IV antibiotics until culture becomes available. DD: Justin Alicea DPM 07/17/20 6723 ASSESSMENT: 55 y/o F w pmh dm, neuropathy, chronic plantar ulcers, om s/p b/l transmetatrsal amputations, right plantar diabetic nelson grade [address] August and , morbid obesity bmi 45, Osteomyelitis of right foot 1st metatarsal 2015 w group B strep and strep mitis,iddm, HTN< dyslipidemia, bipolar, MRSA carrier, chronic osteo right foot and ankle was seen by ID Dr. Thomas on 07/16/20 and found to have increasing bloody and malodorous drainage out of the left plantar foot with fever 101, started on levaquin. Blood work and wound cultures were taken in the office, and pt was called to come to the ER today for admission for sepsis wbc 18 for left foot diabetic infection r/o osteomyelitis. Left distal 2nd and 3rd metatarsal osteomyelitis/ left plantar foot abscess 1.8x1.8 x 2.1 cm/ left foot myositis/ flexor hallucis longus and tibialis posterior tendon synovitis anemia s/p 2u rbc transfusion Acute kidney injury,resolving w ivfluids pruritus due to skin prep w/o rash rhinorrhea Lost IV access s/p picc line DM2 w neuropathy Peripheral Arterial disease morbid obesity bmi 45 Metabolic syndrome HTN dyslipidemia bipolar disorder MRSA carrier s/p b/l transmetatarsal amputations of feet PLAN: atarax for pruritis s/p skin prep for picc line. continue iv vanco zosyn until final cx. ID to decide if abx can be deescalated. check respiratory panel w new c/o of rhinorrhea and fever 2 days ago. zyrtec and singuilair. trial of ivfluids for renal failure which is improving. avoiding nephrotoxins. wound care per yaa. vascular surgery for PAD-waiting for creatinine to be normal before arteriogram. VS, I&O, 24H, Fishbone Vital Signs/I&O Vital Signs Date Time Temp Pulse Resp B/P (MAP) Pulse Ox O2 Delivery O2 Flow Rate FiO2 07/22/20 06:45 3.0 07/22/20 06:23 98.2 113 20 178/79 (112) 89 Nasal Cannula I&O- Last 24 Hours up to 6 AM 07/22/20 06:00 Intake Total 3090 ml Output Total 1850 ml Balance 1240 ml Laboratory Data 24H LABS Laboratory Tests 2 07/21/20 11:26: Bedside Glucose (Misc Panel) 321H 07/21/20 16:38: Bedside Glucose (Misc Panel) 235H 07/21/20 20:04: Bedside Glucose (Misc Panel) 274H 07/22/20 06:22: CBC/BMP Microbiology Microbiology 07/20/20 Anaerobic Culture, Received Pending 07/20/20 Gram Stain - Final, Resulted 07/20/20 Abscess Culture, Resulted Pending 07/17/20 Gram Stain - Final, Resulted 07/17/20 Wound Culture - Final, Resulted Corynebacterium Species Strep Agalactiae Group B Enterococcus Faecalis Streptococcus Gordonii 07/17/20 Anaerobic Culture, Resulted Pending 07/17/20 Gram Stain - Final, Complete 07/17/20 Wound Culture - Final, Complete Enterococcus Faecalis Corynebacterium Species 07/17/20 Blood Culture - Preliminary, Resulted No Growth after 72 hours. All specime... 07/17/20 Blood Culture - Preliminary, Resulted No Growth after 72 hours. All specime... JAYMIE NEVAREZ MD Jul 22, 2020 07:17
[2020-07-22 07:23] LABS: HEMATOCRIT 33.5 % (36.0-47.0); MEAN CORPUSCULAR HEMOGLOBIN 25.3 pg (27.0-33.0); MEAN CORPUSCULAR VOLUME 81.5 fl (80.0-96.0); PLATELET COUNT, AUTOMATED 573 10^3/uL (150-450); RED BLOOD COUNT 4.11 10^6/uL (4.00-5.40); WHITE BLOOD COUNT 21.8 10^3/uL (4.0-10.0)
[2020-07-22 07:25] LABS: HEMOGLOBIN 10.4 g/dl (12.0-15.5)
[2020-07-22] MEDS: HumaLOG INSULIN (NovoLOG) PER UNIT SC SCH ×4 (07:30→21:00)
[2020-07-22 07:42] LABS: CREATININE FOR GFR 1.92 MG/DL (0.55-1.30); GLOMERULAR FILTRATION RATE 29.1 (>51); POTASSIUM SERUM 5.6 MEQ/L (3.5-5.1)
[2020-07-22 07:43] LABS: C REACTIVE PROTEIN QUANTITATIV 14.4 MG/DL (0.00-0.30); CALCIUM LEVEL 8.7 MG/DL (8.5-10.1); MAGNESIUM LEVEL 1.7 MG/DL (1.8-2.4); VANCOMYCIN LEVEL TROUGH 23.8 UG/ML (10.0-20.0)
[2020-07-22 07:47] LABS: ERYTHROCYTE SEDIMENTATION RATE 126 mm/hr (0-30)
[2020-07-22] MEDS ORDERED: hydrOXYzine 25 MG TAB PO ONE (08:00)
[2020-07-22] MEDS: CETIRIZINE (ZyrTEC) 10 MG TAB PO SCH (09:44)
[2020-07-22] MEDS: MONTELUKAST 10 MG TAB PO SCH (09:44)
[2020-07-22] MEDS: GABAPENTIN 300 MG CAP PO SCH ×3 (09:44→21:00)
[2020-07-22] MEDS: ASPIRIN 81 MG ENTERIC TAB PO SCH (09:44)
[2020-07-22] MEDS: LEVEMIR (INSULIN DETEMIR) 1 UNITS/0.01ML SC SCH ×2 (09:44→21:01)
[2020-07-22] MEDS: DULoxetine 30 MG CAP (CYMBALTA) PO SCH (09:44)
[2020-07-22] MEDS: amLODIPine 10 MG TAB PO SCH (09:45)
[2020-07-22] MEDS: ACETAMINOPHEN TAB 650MG DOSE (2X325MG) PO PRN (11:53)
[2020-07-22 12:00] VITALS: BP 177/82
[2020-07-22] MEDS ORDERED: VANCOMYCIN HCL 1,000 MG, VIAL MATE ADAPTER 1 EACH in D5W 250 ML IV SCH (12:00)
[2020-07-22 12:45] VITALS: BP 178/82
--- NOTE | 2020-07-22 13:38 | IPNPDOC ---
Date Seen The patient was seen on 07/22/20. Progress Note Patient seen and examined. We'd like to add her on for an arteriogram to help improve arterial perfusion to try to help with wound healing status post debridements by Dr. Alicea, but the patient still has unchanged acute renal insufficiency. Her creatinine is still greater than 1.9 and her GFR is 29, baseline is normal with a GFR > 60. We still recommend nephrology consult. We hope to add her on possibly Thursday evening for an arteriogram, but at this point is unsafe with her current renal insufficiency. We will continue to follow. We appreciate the opportunity to participate in the care of this patient. VS, I&O, 24H, Fishbone Vital Signs/I&O Vital Signs Date Time Temp Pulse Resp B/P (MAP) Pulse Ox O2 Delivery O2 Flow Rate FiO2 07/22/20 12:45 100.1 101 20 178/82 (114) 89 Nasal Cannula 3.0 I&O- Last 24 Hours up to 6 AM 07/22/20 06:00 Intake Total 3090 ml Output Total 1850 ml Balance 1240 ml Laboratory Data 24H LABS Laboratory Tests 2 07/21/20 16:38: Bedside Glucose (Misc Panel) 235H 07/21/20 20:04: Bedside Glucose (Misc Panel) 274H 07/22/20 06:22: Nucleated Red Blood Cells % (auto) 0.3H, Erythrocyte Sedimentation Rate 126H, Anion Gap 7L, Glomerular Filtration Rate 29.1L, Calcium Level 8.7, Magnesium Level 1.7L, C-Reactive Protein, Quantitative 14.40H, Vancomycin Level Trough 23.8H 07/22/20 11:30: Bedside Glucose (Misc Panel) 130H CBC/BMP Laboratory Tests 07/22/20 06:22 Microbiology Microbiology 07/22/20 Respiratory Virus Panel (PCR) ([facility]) - Final, Complete 07/20/20 Anaerobic Culture, Received Pending 07/20/20 Gram Stain - Final, Resulted 07/20/20 Abscess Culture, Resulted Pending 07/17/20 Gram Stain - Final, Resulted 07/17/20 Wound Culture - Final, Resulted Corynebacterium Species Strep Agalactiae Group B Enterococcus Faecalis Streptococcus Gordonii 07/17/20 Anaerobic Culture, Resulted Pending 07/17/20 Gram Stain - Final, Complete 07/17/20 Wound Culture - Final, Complete Enterococcus Faecalis Corynebacterium Species 07/17/20 Blood Culture - Preliminary, Resulted No Growth after 72 hours. All specime... 07/17/20 Blood Culture - Preliminary, Resulted No Growth after 72 hours. All specime... JERRY QUIÑONES MD Jul 22, 2020 13:38
[2020-07-22 14:00] VITALS: BP 148/68
[2020-07-22] MEDS ORDERED: CALCIUM GLUCONATE 1,000 MG in D5W MINI-BAG PLUS 100 ML IV ONE (14:00)
[2020-07-22] MEDS ORDERED: MAG SULF 1GM/100ML (MAG RUN) 1 GM in IV 1 EA IV ONE (14:00)
[2020-07-22 14:47] LABS: CALCIUM LEVEL 8.5 MG/DL (8.5-10.1); CREATININE FOR GFR 1.98 MG/DL (0.55-1.30); GLOMERULAR FILTRATION RATE 28.1 (>51)
[2020-07-22] MEDS ORDERED: SOD POLYSTYRENE SULFONATE SUSP 15 GM/60 ML UD PO ONE (15:00)
[2020-07-22 18:00] VITALS: BP 145/68
[2020-07-22] MEDS: MORPHINE 4 MG/ML 1ML VIAL/SYRINGE (J2270) IV PRN (20:59)
[2020-07-22] MEDS: ATORVASTATIN 20 MG TAB PO SCH (21:00)
[2020-07-22 22:00] VITALS: BP 148/69
[2020-07-23] MEDS: PIPERACILLIN/TAZOBACTAM SOD 2.25 GM in D5W MINI-BAG PLUS 50 ML IV SCH ×4 (02:26→20:23)
[2020-07-23] MEDS: NS 1,000 ML IV SCH ×3 (02:26→18:45)
[2020-07-23] MEDS: ACETAMINOPHEN TAB 650MG DOSE (2X325MG) PO PRN ×2 (02:26→18:46)
[2020-07-23] MEDS: SODIUM CHLORIDE 0.9% INJ 10 ML SYR IV SCH ×2 (05:25→18:46)
[2020-07-23 06:00] VITALS: BP 158/102
[2020-07-23 06:30] VITALS: BP 159/72
[2020-07-23 06:43] LABS: HEMATOCRIT 32.7 % (36.0-47.0); MEAN CORPUSCULAR HEMOGLOBIN 24.6 pg (27.0-33.0); MEAN CORPUSCULAR HGB CONC 30.6 g/dl (32.0-36.5); MEAN CORPUSCULAR VOLUME 80.5 fl (80.0-96.0); PLATELET COUNT, AUTOMATED 589 10^3/uL (150-450); RED BLOOD COUNT 4.06 10^6/uL (4.00-5.40); WHITE BLOOD COUNT 20.2 10^3/uL (4.0-10.0)
[2020-07-23 07:08] LABS: CALCIUM LEVEL 8.9 MG/DL (8.5-10.1); CREATININE FOR GFR 1.88 MG/DL (0.55-1.30); GLOMERULAR FILTRATION RATE 29.8 (>51); MAGNESIUM LEVEL 1.8 MG/DL (1.8-2.4); POTASSIUM SERUM 4.8 MEQ/L (3.5-5.1)
[2020-07-23] MEDS: HumaLOG INSULIN (NovoLOG) PER UNIT SC SCH ×4 (07:09→20:23)
[2020-07-23] MEDS: DULoxetine 30 MG CAP (CYMBALTA) PO SCH (08:37)
[2020-07-23] MEDS: GABAPENTIN 300 MG CAP PO SCH ×3 (08:37→20:23)
[2020-07-23] MEDS: ASPIRIN 81 MG ENTERIC TAB PO SCH (08:37)
[2020-07-23] MEDS: amLODIPine 10 MG TAB PO SCH (08:37)
[2020-07-23] MEDS: CETIRIZINE (ZyrTEC) 10 MG TAB PO SCH (08:37)
[2020-07-23] MEDS: MONTELUKAST 10 MG TAB PO SCH (08:37)
[2020-07-23] MEDS: LEVEMIR (INSULIN DETEMIR) 1 UNITS/0.01ML SC SCH ×2 (08:38→20:23)
--- NOTE | 2020-07-23 08:53 | IPNPDOC ---
Text Note Date of Service The patient was seen on 07/23/20. NOTE Vascular surgery. Dr. Canas Plan is to possibly to add pt on for an arteriogram to help improve arterial perfusion to try to help with wound healing status post debridements by Dr. Alicea, but the patient still has unchanged acute renal insufficiency. Creatinine is 1.88 and her GFR is 29, baseline is normal with a GFR > 60. Nephrology consult pending. Plan was to possibly to add her on Thursday evening for an arteriogram as per Dr. Canas, but at this point is unsafe with her current renal insufficiency. We will continue to follow. Await recommendations from nephrology. VS,Fishbone, I+O VS, Fishbone, I+O Laboratory Tests 07/22/20 14:07 07/23/20 06:19 Vital Signs Date Time Temp Pulse Resp B/P (MAP) Pulse Ox O2 Delivery O2 Flow Rate FiO2 07/23/20 08:37 107 159/72 07/23/20 06:00 98.1 20 93 Nasal Cannula 3.0 I&O- Last 24 Hours up to 6 AM 07/23/20 06:00 Intake Total 2820 ml Output Total 5200 ml Balance -2380 ml Shauna Medina Jul 23, 2020 08:53
--- NOTE | 2020-07-23 11:10 | IPNPDOC ---
Date Seen The patient was seen on 07/23/20. Progress Note SUBJECTIVE: denies sob fever chills. c/o blood work this am "it hurts, can i use the picc line?" ivfluids and ivabx being infused in the dual lumen picc this am. no c/o pain in the foot OBJECTIVE: PHYSICAL EXAMINATION: VITAL SIGNS: seebelow GENERAL APPEARANCE:aaox c3 no distress no conversational dyspnea HEENT: moist mm thick neck no jvd no cervical lad CARDIOVASCULAR: S1S2 RRR LUNGS: diminished. no rales ABDOMEN: obese soft nt nd +bs no hsm no rebound or guarding EXTREMITIES:left arm picc line b/l transmetatarsal amputation b/l bandaged feet SKIN: no maculopapular erythematous rash LABORATORY DATA: See below. IMAGIN07/17/20 XRAY LEFT FOOT INDICATION: L foot pain/drainage. COMPARISON: No comparison left foot radiographs.. TECHNIQUE: Four views. FINDINGS: Four views of the left foot demonstrate a prior transmetatarsal amputation of the forefoot. The entire 5th metatarsal has been removed. There is diffuse soft tissue swelling about the stump and midfoot. There is soft tissue emphysema in the medial soft tissues at midfoot level. There is a 2 cm focal deficit in the soft tissues adjacent to the remaining 1st metatarsal along the plantar aspect consistent with a large plantar ulcer. Plantar and Achilles calcaneal heel spurs are noted. There is some midfoot osteoarthritic change. No acute bony erosive changes are noted.. No fracture or subluxation is seen. No opaque foreign body noted. IMPRESSION: Diffuse soft tissue swelling. There is soft tissue emphysema in the swollen medial soft tissues at midfoot level. A 2 cm focal soft tissue ulcer is seen along the plantar aspect. Patient is status post transmetatarsal forefoot amputation. Osteoarthritic changes are noted. No acute erosive changes are seen. No opaque foreign body noted.. <Electronically signed by Fredo Sandhu > 07/17/20 1641 MRI LEFT FOOT 07/17/20 Exam: MR Left Lower Extremity Other Than Joint Without and With Contrast; Foot Exam date and time: 07/17/2020 7:38 PM Age: 55 years old Clinical indication: Cellulitis; Foot; Left; Prior surgery; Surgery date: 6+ months; Surgery type: Amputation; Additional info: R/O osteo L foot TECHNIQUE: Imaging protocol: MR of the Left lower extremity without and with intravenous contrast. Exam focused on the foot. Contrast material: PROHANCE; Contrast volume: 11 ml; Contrast route: INTRAVENOUS (IV); COMPARISON: MRI FOOT WITHOUT CONTRAST 11/23/2019 3:39 PM FINDINGS: Bones and cartilage: Status post amputation of the 1st through 5th toes at the mid metatarsals. Abnormal marrow space signal demonstrated in the distal 2nd and 3rd metatarsals with abnormal enhancement on post gadolinium imaging consistent with osteomyelitis. Joint spaces: Unremarkable. No joint effusion. LIGAMENTS: Lisfranc ligament: Unremarkable. No evidence of tear. TENDONS: Flexor tendons of foot: Fluid demonstrated in the tendon sheath of the flexor hallucis longus consistent with synovitis. Tendon appears unremarkable. Tibialis posterior tendon: Fluid demonstrated in the tendon sheath of the tibialis posterior tendon consistent with synovitis. Tendon appears intrinsically unremarkable. Peroneal tendons: Unremarkable as visualized. Extensor tendons of foot: Unremarkable. No evidence of tear. Tibialis anterior tendon: Unremarkable as visualized. Tarsal canal (Sinus tarsi): Unremarkable. Tarsal tunnel: Unremarkable. Muscles: Diffuse enhancement of the intrinsic muscles of the foot, findings which can be seen in association with myositis. Soft tissues: Diffuse edema demonstrated in the foot with subcutaneous fluid as well as skin thickening consistent with cellulitis. Focal inflammatory mass demonstrated on the plantar aspect of the foot deep to a large ulcer crater measures 1.8 x 1.8 x 2.1 cm associated with regional gas and teardrop shaped fluid collection, findings consistent with an abscess. Fluid demonstrated in the synovium of the talonavicular joint. Plantar fascia: Unremarkable as visualized. IMPRESSION: 1. Status post amputation of the 1st through 5th toes at the mid metatarsals. 2. Abnormal marrow space signal demonstrated in the distal 2nd and 3rd metatarsals with abnormal enhancement on post gadolinium imaging consistent with osteomyelitis. 3. Fluid demonstrated in the tendon sheath of the tibialis posterior tendon consistent with synovitis. Tendon appears intrinsically unremarkable. 4. Diffuse enhancement of the intrinsic muscles of the foot, findings which can be seen in association with myositis. 5. Diffuse soft tissue edema with a focal abscess demonstrated on the plantar aspect of the foot. 6. Synovitis demonstrated in the tendon sheath of the flexor hallucis longus and tibialis posterior tendon. Electronically signed by: Carlos Ramírez On 07/17/2020 20:11:32 PM MICROBIOLOGY: Please see below. PROCEDURES: 07/17/20 DATE OF OPERATION: 07/17/2020 PREOPERATIVE DIAGNOSIS: Deep abscess formation, possible osteomyelitis plantar surface left foot. POSTOPERATIVE DIAGNOSIS: Deep abscess formation, possible osteomyelitis plantar surface left foot. PROCEDURE: Incision and drainage multiple abscesses plantar surface left foot. SURGEON: Justin Mon DPM SEISMOGRAPH OBSERVER: None. ANESTHESIA: Local MAC. IRRIGATION: Dilute Gentamicin solution, 3 liters, low pressure pulse lavage system. DRAINS UTILIZED: inch Iodoform gauze. ESTIMATED BLOOD LOSS: 100 mL. DESCRIPTION OF PROCEDURE: On 07/17/2020 this 55-year-old female was taken from hospital room to the operating room, placed on the operating table in the supine position. Following induction of IV sedation and local regional anesthesia left lower extremity was prepped and draped in usual aseptic manner. Attention was directed to the patient's plantar surface of the left foot. There was noted to be an ulceration measuring approximately 2 cm x 2 cm. This ulcer tunneled in proximal direction 7 cm and approximately 2 cm distally. Utilizing sterile scalpel dissection was carried deep along this tunneling abscessed area. Upon incision there were several milliliters of purulent material which was cultured aerobically and anaerobically. There was an area of necrotic tissue as well in the central aspect measuring 1 cm x 1 cm which was sharply debrided. The ulcer extended to the plantar fascia and extended in proximal direction and was followed distally. Adventitious bursal formation was noted which was debrided. Using palpation the abscess ulceration area did not extend to bone along the 1st or 2nd metatarsal, the 3rd metatarsal could not be palpated. Therefore, the debridement was not carried to bone. Utilizing 3 liters of dilute Gentamicin the area was copiously irrigated with low pressure pulse lavage system. All bleeders as encountered were electrocoagulated. The wound was packed with inch Iodoform gauze and sterile dressing was applied consisting of ABD, 4 x 4s, Kerlix and Omer wrap. The Omer wrap was used just to support the bandage, no compression was utilized. The patient having apparently tolerated the surgical procedure well was taken from the OR to the recovery room for further monitoring by the anesthesia department. Postoperative instructions were given upon discharge. The patient will be placed on IV antibiotics until culture becomes available. DD: Justin Mon DPM 07/17/202142 ASSESSMENT: 55 y/o F w pmh dm, neuropathy, chronic plantar ulcers, om s/p b/l transmetatrsal amputations, right plantar diabetic nelson grade [address] August and , morbid obesity bmi 45, Osteomyelitis of right foot 1st metatarsal 2015 w group B strep and strep mitis,iddm, HTN< dyslipidemia, bipolar, MRSA carrier, chronic osteo right foot and ankle was seen by ID Dr. Thomas on 07/16/20 and found to have increasing bloody and malodorous drainage out of the left plantar foot with fever 101, started on levaquin. Blood work and wound cultures were taken in the office, and pt was called to come to the ER today for admission for sepsis wbc 18 for left foot diabetic infection r/o osteomyelitis. Left distal 2nd and 3rd metatarsal osteomyelitis/ left plantar foot abscess 1.8x1.8 x 2.1 cm/ left foot myositis/ flexor hallucis longus and tibialis posterior tendon syn ovitis -on iv vanco zosyn managed by ID and pharmacist for renal dosing -ID to de-escalate abx. -anaerobic cx pending -s/p incision and debridement by dr mon x2 -awaiting renal function to improve prior to angiogram by vascular to eval for peripheral vascular disease to improve circulation for wound healing anemia s/p 2u rbc transfusion -denies acute gi bleed Contrast nephropathy with acute renal failure -in the setting of ibuprofen and omer inh use on admission, complicated by infection from abscess/osteomyelitis and gadolinium contrast -slow recovery despite 4 days ivfluids -nephrology consulted pruritus due to skin prep w/o rash -resolved rhinorrhea -resolved Lost IV access s/p picc line -pt accidentally pulled her iv line -poor iv access s/p picc line DM2 w neuropathy -consistent carbs fingersticks qachs w coverage Peripheral Arterial disease -vascular surgery waiting for creatinine to improve -causing poor wound healing and recurrent infections morbid obesity bmi 45 -complicating care Metabolic syndrome -complicating care HTN-controlled dyslipidemia -chronic bipolar disorder -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 -contact isolation VS, I&O, 24H, Fishbone Vital Signs/I&O Vital Signs Date Time Temp Pulse Resp B/P (MAP) Pulse Ox O2 Delivery O2 Flow Rate FiO2 07/23/20 08:37 107 159/72 07/23/20 06:00 98.1 20 93 Nasal Cannula 3.0 I&O- Last 24 Hours up to 6 AM 07/23/20 06:00 Intake Total 2820 ml Output Total 5200 ml Balance -2380 ml Laboratory Data 24H LABS Laboratory Tests 2 07/22/20 11:30: Bedside Glucose (Misc Panel) 130H 07/22/20 14:07: Anion Gap 7L, Glomerular Filtration Rate 28.1L, Calcium Level 8.5 07/22/20 16:28: Bedside Glucose (Misc Panel) 142H 07/22/20 19:46: Bedside Glucose (Misc Panel) 142H 07/23/20 05:23: Bedside Glucose (Misc Panel) 58L 07/23/20 06:19: Nucleated Red Blood Cells % (auto) 0.1H, Anion Gap 7L, Glomerular Filtration Rate 29.8L, Calcium Level 8.9, Magnesium Level 1.8 07/23/20 06:33: Bedside Glucose (Misc Panel) 99 CBC/BMP Laboratory Tests 07/22/20 14:07 07/23/20 06:19 Microbiology Microbiology 07/22/20 Respiratory Virus Panel (PCR) ([facility]) - Final, Complete 07/20/20 Anaerobic Culture, Received Pending 07/20/20 Gram Stain - Final, Resulted 07/20/20 Abscess Culture, Resulted Pending 07/17/20 Gram Stain - Final, Resulted 07/17/20 Wound Culture - Final, Resulted Corynebacterium Species Strep Agalactiae Group B Enterococcus Faecalis Streptococcus Gordonii 07/17/20 Anaerobic Culture, Resulted Pending 07/17/20 Gram Stain - Final, Complete 07/17/20 Wound Culture - Final, Complete Enterococcus Faecalis Corynebacterium Species 07/17/20 Blood Culture - Final, Complete NO GROWTH AFTER 5 DAYS 07/17/20 Blood Culture - Final, Complete NO GROWTH AFTER 5 DAYS JAYMIE NEVAREZ MD Jul 23, 2020 10:43
[2020-07-23] MEDS ORDERED: VANCOMYCIN HCL 750 MG, VIAL MATE ADAPTER 1 EACH in D5W 250 ML IV SCH (13:00)
[2020-07-23 14:00] VITALS: BP 140/75
[2020-07-23 17:42] LABS: ERYTHROCYTE SEDIMENTATION RATE 129 mm/hr (0-30)
[2020-07-23] MEDS: ATORVASTATIN 20 MG TAB PO SCH (20:22)
[2020-07-23 22:00] VITALS: BP 162/69
--- NOTE | 2020-07-23 22:25 | CR ---
NEPHROLOGY CONSULTATION DATE: 07/23/2020 CONSULTATION REQUESTED BY: Dora Potter MD REASON FOR CONSULTATION: Acute kidney injury. HISTORY OF PRESENT ILLNESS: Iliana is a 55-year-old female with multiple chronic medical problems including longstanding diabetes, morbid obesity, peripheral vascular disease and chronic infection on her left foot stump. She has bilateral toe amputation previously. She is being following by Dr. August for her chronic foot wound and was found to have an abscess, due to which she was admitted. She is receiving I.V. antibiotics and also had some debridement done by Dr. Alicea. Patient has developed worsening kidney function, due to which a nephrology consultation was requested and patient is seen this morning. PAST MEDICAL HISTORY: 1. Longstanding history of diabetes. 2. Peripheral vascular disease. 3. Morbid obesity. 4. Multiple episodes of osteomyelitis; status post transmetatarsal amputation of both feet. 5. History of osteomyelitis of right foot in the past; status post drainage and incision. 6. History of depression. 7. Hyperlipidemia. 8. History of MRSA infection in her left foot. SURGICAL HISTORY: Significant for: 1. Bilateral transmetatarsal amputation. 2. Cholecystectomy. 3. . 4. Tubal ligation. 5. Jaw surgery. 6. Removal of embedded needles in the right foot. FAMILY HISTORY: Father with heart disease and mother with cancer. Her sister is a home health aid. PERSONAL AND SOCIAL HISTORY: Patient lives with her . She denies any alcohol, drug or tobacco use. REVIEW OF SYSTEMS: Patient reports ongoing infection in her left foot stump for a while. She developed abscess, but denies any fever or chills at present. She denies any dyspnea or chest pain. Ears, nose and throat are unremarkable. Cardiovascular system is negative for any dyspnea or chest pain. She does have leg edema. Respiratory system is negative for any cough or hemoptysis. GI system is negative for vomiting or diarrhea. system is negative for dysuria or hematuria. She currently has a Valladares catheter in place. Endocrine system is significant for diabetes, but no known history of thyroid problems. Psychosocial system is significant for depression. Neurological system is significant for peripheral neuropathy. Hematological system is significant for anemia. ALLERGIES: She has multiple allergies includin. Cefazolin. 2. Pseudoephedrine. 3. Trazodone. 4. Fluoxetine. MEDICATIONS: Her current medications: 1. I.V. fluid normal saline 100 mL per hour. 2. Zosyn 2.25 grams every 6 hours. 3. Vancomycin 1 gram every 24 hours. 4. Tylenol 650 mg as needed for pain. 5. Amlodipine 10 mg daily. 6. Aspirin 81 mg daily. 7. Atorvastatin 40 mg daily. 8. Cetirizine 10 mg daily. 9. Cymbalta 60 mg daily. 10.Gabapentin 300 mg t.i.d. 11.Levemir Insulin 50 units daily. 12.Hydroxyzine 25 mg p.r.n. for itching. 13.Singulair 10 mg daily. 14.Humalog Insulin per sliding scale. 15.Morphine 4 mg every 4 hours p.r.n. severe pain. 16.Zofran 4 mg sublingual every 6 hours p.r.n. for nausea. PHYSICAL EXAMINATION: GENERAL: This is a morbidly obese lady, laying in the bed without any acute distress. VITALS: Temperature 98 degrees Fahrenheit, heart rate 107 per minute, respiratory rate 20 per minute, blood pressure 158/100 mmHg and oxygen saturation 93% on 3 liter oxygen. HEAD: Atraumatic. NECK: Supple and JVD does not seem to be abnormally elevated. HEART: Sounds are tachycardia. LUNGS: Clear to auscultation. ABDOMEN: Obese, soft and nontender. Bowel sounds are present. EXTREMITIES: Without any cyanosis or clubbing. Left foot is wrapped in dressing and dressing is somewhat stained with drainage. Lower extremity edema is at least 1+ bilaterally. NEUROLOGIC: She is awake, alert and at her baseline mentation. LABORATORY DATA: From 07/21/2020, hemoglobin 6.6, hematocrit 22.4. Today, hemoglobin 10 and hematocrit 32.7. WBC 20.2 and platelets 589,000. Sodium 141, potassium 4.8, CO2 24, BUN 24, and creatinine 1.88, glucose 72 and calcium 8.9. C-reactive protein 14.4 yesterday. IMAGING STUDIES: Renal ultrasound done on 07/20/2020 showed normal kidneys with 12.9 cm right kidney and 13.2 cm left kidney. MRI of her left foot showed some evidence for osteomyelitis and fluid demonstrated in the tendon sheath of tibialis posterior and some evidence for myositis. PROBLEMS: 1. Acute kidney injury with possible superimposed on mild chronic kidney disease: Her creatinine was 1.6 on admission on 07/17/2020, now her creatinine has been as high as 1.98 yesterday. Most likely her acute kidney injury is related to osteomyelitis and soft tissue infection in the left foot. She has also been on Vancomycin with level just high therapeutic range. She does not have a urinalysis done so far and I am not sure if she has underlying diabetic nephropathy. Her kidneys look normal on renal ultrasound. I would suggest to eliminate all nephrotoxic medications. Unfortunately, she doses have history of MRSA and will need either Zyvox or Vancomycin to continue. I will defer to infectious disease about her choice of antibiotic. 2. Hypervolemia: Her volume status is slightly decompensated. Her left leg is more swollen, most likely related to infection in her foot. I would suggest to cut down on the diuretic for now and watch her closely. 3. Anemia: Her anemia did improve following transfusion. At this point, we can watch her without any further intervention. She probably will require intravenous iron, however, I would not want to give her intravenous iron while she has active infection going on due to risk of bacteremia. Once that infection gets cleared, then we can consider giving her intravenous iron infusion. 4. Left foot osteomyelitis and soft tissue infection: Patient remains on Zosyn and Vancomycin. She is being followed by infectious disease. Thank you for involving me in the care of Mrs. Goetz. I will follow her along with you. JACOB
[2020-07-24] MEDS: PIPERACILLIN/TAZOBACTAM SOD 2.25 GM in D5W MINI-BAG PLUS 50 ML IV SCH ×4 (03:20→22:27)
[2020-07-24] MEDS: NS 1,000 ML IV SCH (03:20)
[2020-07-24] MEDS: MORPHINE 4 MG/ML 1ML VIAL/SYRINGE (J2270) IV PRN (03:21)
[2020-07-24 04:20] LABS: APPEARANCE, URINE CLEAR (CLEAR); BACTERIA, URINE AUTO NEGATIVE (NEGATIVE); BILIRUBIN, URINE AUTO NEGATIVE (NEGATIVE); BLOOD, URINE BLOOD 1+ (NEGATIVE); COLOR, URINE STRAW (YELLOW); GLUCOSE, URINE (UA) AUTO 1+ mg/dL (NEGATIVE); KETONE, URINE AUTO NEGATIVE (NEGATIVE); LEUKOCYTE ESTERASE, URINE AUTO TRACE (NEGATIVE); NITRITE, URINE AUTO NEGATIVE (NEGATIVE); PROTEIN, URINE AUTO 1+ mg/dL (NEGATIVE); RBC, URINE AUTO 3 /HPF (0-3); SPECIFIC GRAVITY URINE AUTO 1.005 (1.002-1.035); SQUAMOUS EPITHELIAL CELL UR AU 1 /HPF (0-6); UROBILINOGEN, URINE AUTO 0.2 mg/dL (0.0-2.0); WBC, URINE AUTO 7 /HPF (0-3)
[2020-07-24] MEDS: SODIUM CHLORIDE 0.9% INJ 10 ML SYR IV SCH ×2 (05:02→17:32)
[2020-07-24 06:00] VITALS: BP 179/89
[2020-07-24 07:26] LABS: HEMATOCRIT 30.8 % (36.0-47.0); HEMOGLOBIN 9.5 g/dl (12.0-15.5); MEAN CORPUSCULAR HEMOGLOBIN 24.9 pg (27.0-33.0); MEAN CORPUSCULAR HGB CONC 30.8 g/dl (32.0-36.5); MEAN CORPUSCULAR VOLUME 80.6 fl (80.0-96.0); PLATELET COUNT, AUTOMATED 590 10^3/uL (150-450); RED BLOOD COUNT 3.82 10^6/uL (4.00-5.40); WHITE BLOOD COUNT 16.2 10^3/uL (4.0-10.0)
[2020-07-24] MEDS: **hydrALAZINE HCL** 25 MG TAB PO SCH ×4 (07:30→23:28)
[2020-07-24 07:52] LABS: C REACTIVE PROTEIN QUANTITATIV 14.2 MG/DL (0.00-0.30); CALCIUM LEVEL 9.1 MG/DL (8.5-10.1); CREATININE FOR GFR 1.65 MG/DL (0.55-1.30); GLOMERULAR FILTRATION RATE 34.6 (>51); MAGNESIUM LEVEL 1.7 MG/DL (1.8-2.4); POTASSIUM SERUM 4.5 MEQ/L (3.5-5.1)
[2020-07-24] MEDS: HumaLOG INSULIN (NovoLOG) PER UNIT SC SCH ×4 (08:19→21:00)
[2020-07-24] MEDS: ASPIRIN 81 MG ENTERIC TAB PO SCH (08:20)
[2020-07-24] MEDS: DULoxetine 30 MG CAP (CYMBALTA) PO SCH (08:20)
[2020-07-24] MEDS: CETIRIZINE (ZyrTEC) 10 MG TAB PO SCH (08:20)
[2020-07-24] MEDS: GABAPENTIN 300 MG CAP PO SCH ×3 (08:20→22:26)
[2020-07-24] MEDS: MONTELUKAST 10 MG TAB PO SCH (08:20)
[2020-07-24] MEDS: LEVEMIR (INSULIN DETEMIR) 1 UNITS/0.01ML SC SCH ×2 (08:21→22:27)
--- NOTE | 2020-07-24 08:21 | IPNPDOC ---
Text Note Date of Service The patient was seen on 07/24/20. NOTE Vascular surgery. Dr. Canas Plan is to possibly to add pt on for an arteriogram to help improve arterial perfusion to try to help with wound healing status post debridements by Dr. Alicea, but the patient is noted to have acute on chronic renal insufficiency. Today's labs are slightly improved with creatinine 1.65 and GFR 34.6. Nephrology consult appreciated. Plan is to await improvement in her renal function prior to proceeding with arteriogram as per Dr. Canas. We will continue to follow. VS,Fishbone, I+O VS, Fishbone, I+O Laboratory Tests 07/24/20 07:12 Vital Signs Date Time Temp Pulse Resp B/P (MAP) Pulse Ox O2 Delivery O2 Flow Rate FiO2 07/24/20 07:30 179/89 07/24/20 06:00 98.5 82 19 92 Nasal Cannula 3.0 I&O- Last 24 Hours up to 6 AM 07/24/20 05:59 Intake Total 2560 ml Output Total 4100 ml Balance -1540 ml Shauna Medina Jul 24, 2020 08:21
[2020-07-24] MEDS: amLODIPine 10 MG TAB PO SCH (08:24)
--- NOTE | 2020-07-24 08:53 | IPN ---
PROGRESS NOTE DATE: 07/23/2020 SUBJECTIVE: Iliana seems to be doing better. She does complain of some shortness of breath and needed a blood transfusion after surgery. Her hemoglobin was down to 6.6. She also had some oxygen on. She had a low grade temperature yesterday but not today. LABS: White count is 20.2, hemoglobin 10, hematocrit 32.7, platelets 589. Sodium 141, potassium 4.8, chloride 110, bicarb 24, BUN 24, creatinine 1.88, glucose 72, calcium 8.9, magnesium 1.8. Her creatinine had increased to 1.98 from normal on admission. Cultures are positive for E. faecalis, Strep gordonii, group B Strep, Corynebacterium, and anaerobic culture still pending. July 20 culture from second OR incision of the top of the foot is still pending. PHYSICAL EXAMINATION: GENERAL: She is a pleasant female in no acute distress. VITAL SIGNS: Temperature 97.4, pulse 93, respirations 20, blood pressure 140/75, O2 sat 93% on 3 liters nasal cannula. HEART: Normal S1, S2, no murmurs appreciated. LUNGS: Decreased breath sounds at the bases but no wheezes or rales. ABDOMEN: Markedly obese, soft, nontender. EXTREMITIES: +2 pitting edema. Bilateral transmetatarsal amputation, open wound of the right foot with granulation tissue measuring about 10 x 6 cm with serosanguinous discharge. The left foot has an incision across the foot, plantar aspect, measuring about 8 cm with 2 cm depth and another incision that extends to the dorsal aspect of the foot measuring about another 8 cm with surrounding erythema and minimal tenderness. The discharge is also serosanguinous. IMPRESSION: 1. Diabetic foot ulcer of the left foot with acute osteomyelitis following microbial infection with E. faecalis, group B Strep, streptococcus gordonii and second I&D cultures are pending. The patient does not have MRSA on any of the cultures and therefore I will discontinue Vancomycin. Continue with IV Zosyn until second culture available. 2. History of MSSA and group B Strep osteomyelitis of the right foot. The patient was on Dicloxacillin for over three months, that is healing well. 3. Fluid retention possibly the cause of her hypoxia. 4. Acute kidney injury most likely related to Vancomycin toxicity. Vancomycin will be discontinued. PLAN: Continue Zosyn at 2.25 gm IV every 6 hours until her kidney function improves and then increase back to dose to 3.375 gm every 6 hours, will follow culture. The patient will probably need care home placement for IV antibiotics.
[2020-07-24 09:07] LABS: ERYTHROCYTE SEDIMENTATION RATE 127 mm/hr (0-30)
[2020-07-24] MEDS ORDERED: MAG SULF 1GM/100ML (MAG RUN) 1 GM in IV 1 EA IV ONE (11:00)
--- NOTE | 2020-07-24 11:18 | REP ---
INDICATION: hypoxia COMPARISON: 10/31/2019 TECHNIQUE: Portable AP view of the chest FINDINGS: The mediastinum and cardiac silhouette are stable and within normal limits for portable technique. A right perihilar infiltrate is suggested and warrants further evaluation and follow-up. No effusion. No pneumothorax. IMPRESSION: Moderate right perihilar opacity/infiltrates suspected. <Electronically signed by Kaiden Buenrostro > 07/24/20 1113
[2020-07-24] MEDS ORDERED: FUROSEMIDE 100MG/10ML VIAL (J1940) IV ONE (12:30)
--- NOTE | 2020-07-24 13:10 | IPNPDOC ---
Text Note Date of Service The patient was seen on 07/24/20. NOTE SUBJECTIVE: Complains of SOB and runny nose and body aches. COVID X 2 negative. She is still requiring 3 l of Oxygen. CXR with right perihilar congestion. Refused ABG. IVF stopped, Willgive 1 dose of lasix. Says she snores and often startles out of sleep. She believes she probably has sleep apnea never tested due to her legs and medications she takes for them which need to be stopped before testing. PHYSICAL EXAMINATION: VITAL SIGNS: see below GENERAL APPEARANCE: sitting at the side of bed, alert oriented x 3 in no acute distress. HEENT: NC, AT, moist mucous membranes, anicteric eyes. CARDIOVASCULAR: S1S2 RRR , No rub or murmur or gallop LUNGS: Bilateral diminished air entry, few basal crackles, no wheezing or ronchi. ABDOMEN: obese soft nt nd +bs no hsm no rebound or guarding EXTREMITIES: left arm picc line b/l transmetatarsal amputation b/l bandaged feet SKIN: no maculopapular erythematous rash LABS and Radiology: reviewed IMAGIN07/17/20 XRAY LEFT FOOT Diffuse soft tissue swelling. There is soft tissue emphysema in the swollen medial soft tissues at midfoot level. A 2 cm focal soft tissue ulcer is seen along the plantar aspect. Patient is status post transmetatarsal forefoot amputation. Osteoarthritic changes are noted. No acute erosive changes are seen. No opaque foreign body noted.. MRI LEFT FOOT 07/17/20 1. Status post amputation of the 1st through 5th toes at the mid metatarsals. 2. Abnormal marrow space signal demonstrated in the distal 2nd and 3rd metatarsals with abnormal enhancement on post gadolinium imaging consistent with osteomyelitis. 3. Fluid demonstrated in the tendon sheath of the tibialis posterior tendon consistent with synovitis. Tendon appears intrinsically unremarkable. 4. Diffuse enhancement of the intrinsic muscles of the foot, findings which can be seen in association with myositis. 5. Diffuse soft tissue edema with a focal abscess demonstrated on the plantar aspect of the foot. 6. Synovitis demonstrated in the tendon sheath of the flexor hallucis longus and tibialis posterior tendon. PROCEDURES: 07/17/20 POSTOPERATIVE DIAGNOSIS: Deep abscess formation, possible osteomyelitis plantar surface left foot. PROCEDURE: Incision and drainage multiple abscesses plantar surface left foot. SURGEON: Justin Mon DPM ASSESSMENT and PLAN: 55 y/o F w pmh DM, neuropathy, Morbid obesity, chronic plantar ulcers, OM s/p b/l transmetatarsal amputations, HTN,dyslipidemia, bipolar, MRSA carrier, chronic osteo right foot and ankle was seen by ID Dr. Thomas on 07/16/20 and found to have increasing bloody and malodorous drainage out of the left plantar foot ulcer with fever 101, started on levaquin. Blood work and wound cultures were taken in the office, and pt was sent to ER for admission for sepsis, left foot diabetic infection , osteomyelitis. Now S/p I&D of the left foot by Dr Mon. Hospital course was complicated by anemia requiring 2 units of PRBC and contrast nephropathy causing MONIQUE. Now with SOB and oxygen requirement in hospital. Hypoxia COVID test x 2 negative CXR : right perihilar congestion/ infiltrates. On antibiotics. will give a dose of IV lasix. Stopped IVF. Left distal 2nd and 3rd metatarsal osteomyelitis/ left plantar foot abscess 1.8x1.8 x 2.1 cm left foot myositis/ flexor hallucis longus and tibialis posterior tendon synovitis on iv vanco managed by ID and pharmacist for renal dosing, No MRSA in cultures s/p incision and debridement by dr mon x2 awaiting renal function to improve prior to angiogram by vascular to eval for peripheral vascular disease to improve circulation for wound healing H/o MSSA and group B Strep osteomyelitis of the right foot. The patient was on Dicloxacillin for over three months, that is healing well. Anemia s/p 2u rbc transfusion due to chronic disease, phlebotomy and probable iron def. MONIQUE on CKD Multifactorial. probably due to vanco toxicity on the back ground of ibuprofen and ACEI and sepsis Better DM2 w neuropathy consistent carbs fingersticks qachs w coverage cymbalta. Peripheral Arterial disease vascular surgery waiting for creatinine to improve causing poor wound healing and recurrent infections Morbid obesity bmi 45 complicating care HTN ARB stopped On amlodipine and hydralazine Dyslipidemia statin Bipolar disorder 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 contact isolation VS,Fishbone, I+O VS, Fishbone, I+O Laboratory Tests 07/24/20 07:12 Vital Signs Date Time Temp Pulse Resp B/P (MAP) Pulse Ox O2 Delivery O2 Flow Rate FiO2 07/24/20 12:01 172/77 1/26/21 08:29 1.0 07/24/20 08:24 84 07/24/20 06:00 98.5 19 92 Nasal Cannula I&O- Last 24 Hours up to 6 AM 07/24/20 06:00 Intake Total 2440 ml Output Total 4550 ml Balance -2110 ml GLORIA FRAGA MD Jul 24, 2020 13:10
[2020-07-24 22:00] VITALS: BP 152/67
[2020-07-24] MEDS: ATORVASTATIN 20 MG TAB PO SCH (22:26)
[2020-07-25] MEDS: PIPERACILLIN/TAZOBACTAM SOD 2.25 GM in D5W MINI-BAG PLUS 50 ML IV SCH ×4 (03:15→20:15)
[2020-07-25] MEDS: SODIUM CHLORIDE 0.9% INJ 10 ML SYR IV SCH ×2 (04:58→17:15)
[2020-07-25] MEDS: **hydrALAZINE HCL** 25 MG TAB PO SCH ×4 (05:02→23:47)
[2020-07-25 05:32] VITALS: BP 153/73
[2020-07-25] MEDS: MONTELUKAST 10 MG TAB PO SCH (08:40)
[2020-07-25] MEDS: CETIRIZINE (ZyrTEC) 10 MG TAB PO SCH (08:40)
[2020-07-25] MEDS: ASPIRIN 81 MG ENTERIC TAB PO SCH (08:40)
[2020-07-25] MEDS: GABAPENTIN 300 MG CAP PO SCH ×3 (08:41→20:15)
[2020-07-25] MEDS: LEVEMIR (INSULIN DETEMIR) 1 UNITS/0.01ML SC SCH ×2 (08:41→20:14)
[2020-07-25] MEDS: amLODIPine 10 MG TAB PO SCH (08:41)
[2020-07-25] MEDS: DULoxetine 30 MG CAP (CYMBALTA) PO SCH (08:41)
[2020-07-25] MEDS: HumaLOG INSULIN (NovoLOG) PER UNIT SC SCH ×4 (08:42→20:14)
[2020-07-25] MEDS: MORPHINE 4 MG/ML 1ML VIAL/SYRINGE (J2270) IV PRN ×2 (08:47→20:17)
[2020-07-25] MEDS ORDERED: FUROSEMIDE 40MG/4ML VIAL (J1940) IV SCH (09:00)
[2020-07-25 09:07] LABS: HEMATOCRIT 34.7 % (36.0-47.0); HEMOGLOBIN 10.8 g/dl (12.0-15.5); MEAN CORPUSCULAR HEMOGLOBIN 24.5 pg (27.0-33.0); MEAN CORPUSCULAR HGB CONC 31.1 g/dl (32.0-36.5); MEAN CORPUSCULAR VOLUME 78.9 fl (80.0-96.0); PLATELET COUNT, AUTOMATED 701 10^3/uL (150-450)
[2020-07-25 09:48] LABS: CALCIUM LEVEL 9.6 MG/DL (8.5-10.1); CREATININE FOR GFR 1.71 MG/DL (0.55-1.30); GLOMERULAR FILTRATION RATE 33.2 (>51); POTASSIUM SERUM 5.5 MEQ/L (3.5-5.1)
[2020-07-25 09:51] LABS: ATYPICAL LYMPH 2 % (0-5); EOSINOPHILS 3 % (0-3); LYMPHOCYTES 27 % (16-44); METAMYELOCYTES 1 % (0-0); MONOCYTES 9 % (0-5); NEUTROPHILS 53 % (28-66); PLATELET ESTIMATE INCREASED (NORMAL)
[2020-07-25 09:52] LABS: ANISOCYTOSIS 1+
--- NOTE | 2020-07-25 10:45 | IPNPDOC ---
Text Note Date of Service The patient was seen on 07/25/20. NOTE SUBJECTIVE: Feels much better today. Her SOB and chest tightness is better. SHe had massive diuresis after 1 dose of lasix yesterday. Her Oxygen requirement has gone done to about 0.5 to 1 liters from 3 liters. PHYSICAL EXAMINATION: VITAL SIGNS: see below GENERAL APPEARANCE: sitting at the side of bed, alert oriented x 3 in no acute distress. HEENT: NC, AT, moist mucous membranes, anicteric eyes. CARDIOVASCULAR: S1S2 RRR , No rub or murmur or gallop LUNGS: Bilateral diminished air entry, clear to auscultation. ABDOMEN: obese soft nt nd +bs no hsm no rebound or guarding EXTREMITIES: left arm picc line b/l transmetatarsal amputation b/l bandaged feet SKIN: no maculopapular erythematous rash LABS and Radiology: reviewed IMAGIN07/17/20 XRAY LEFT FOOT Diffuse soft tissue swelling. There is soft tissue emphysema in the swollen medial soft tissues at midfoot level. A 2 cm focal soft tissue ulcer is seen along the plantar aspect. Patient is status post transmetatarsal forefoot amputation. Osteoarthritic changes are noted. No acute erosive changes are seen. No opaque foreign body noted.. MRI LEFT FOOT 07/17/20 1. Status post amputation of the 1st through 5th toes at the mid metatarsals. 2. Abnormal marrow space signal demonstrated in the distal 2nd and 3rd metatarsals with abnormal enhancement on post gadolinium imaging consistent with osteomyelitis. 3. Fluid demonstrated in the tendon sheath of the tibialis posterior tendon consistent with synovitis. Tendon appears intrinsically unremarkable. 4. Diffuse enhancement of the intrinsic muscles of the foot, findings which can be seen in association with myositis. 5. Diffuse soft tissue edema with a focal abscess demonstrated on the plantar aspect of the foot. 6. Synovitis demonstrated in the tendon sheath of the flexor hallucis longus and tibialis posterior tendon. PROCEDURES: 07/17/20 POSTOPERATIVE DIAGNOSIS: Deep abscess formation, possible osteomyelitis plantar surface left foot. PROCEDURE: Incision and drainage multiple abscesses plantar surface left foot. SURGEON: Justin Mon DPM ASSESSMENT and PLAN: 55 y/o F w pmh DM, neuropathy, Morbid obesity, chronic plantar ulcers, OM s/p b/l transmetatarsal amputations, HTN,dyslipidemia, bipolar, MRSA carrier, chronic osteo right foot and ankle was seen by ID Dr. Thomas on 07/16/20 and found to have increasing bloody and malodorous drainage out of the left plantar foot ulcer with fever 101, started on levaquin. Blood work and wound cultures were taken in the office, and pt was sent to ER for admission for sepsis, left foot diabetic infection , osteomyelitis. Now S/p I&D of the left foot by Dr Mon. Hospital course was complicated by anemia requiring 2 units of PRBC and contrast nephropathy causing MONIQUE. Now with SOB and oxygen requirement in hospital. Hypoxia due to pulmonary congestionfrom fluid overloda COVID test x 2 negative CXR : right perihilar congestion/ infiltrates. On antibiotics. now improving. Last echo was in 2014 did have some suggestion of diastolic dysfunction. Will get an echo. Left distal 2nd and 3rd metatarsal osteomyelitis/ left plantar foot abscess 1.8x1.8 x 2.1 cm left foot myositis/ flexor hallucis longus and tibialis posterior tendon synovitis on iv Zosyn No MRSA in cultures s/p incision and debridement by dr mon x2 awaiting renal function to improve prior to angiogram by vascular to eval for peripheral vascular disease to improve circulation for wound healing H/o MSSA and group B Strep osteomyelitis of the right foot. The patient was on Dicloxacillin for over three months, that is healing well. Anemia s/p 2u rbc transfusion due to chronic disease, phlebotomy and probable iron def. MONIQUE on CKD Multifactorial. probably due to vanco toxicity on the back ground of ibuprofen and ACEI and sepsis Better DM2 w neuropathy consistent carbs fingersticks qachs w coverage cymbalta. 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 VS,Fishbone, I+O VS, Fishbone, I+O Laboratory Tests 07/25/20 08:07 Vital Signs Date Time Temp Pulse Resp B/P (MAP) Pulse Ox O2 Delivery O2 Flow Rate FiO2 07/25/20 08:57 18 Nasal Cannula 1.0 07/25/20 08:41 91 186/86 07/25/20 05:32 98.5 93 I&O- Last 24 Hours up to 6 AM 07/25/20 06:00 Intake Total 2650 ml Output Total 7275 ml Balance -4625 ml GLORIA FRAGA MD Jul 25, 2020 10:45
[2020-07-25] MEDS: ENOXAPARIN 40MG/0.4ML SYRINGE (J1650 PER 10MG) SC SCH (10:48)
--- NOTE | 2020-07-25 13:16 | IPN ---
NEPHROLOGY PROGRESS NOTE DATE: 07/25/2020 SUBJECTIVE: Miss Goetz is seen this morning at her bedside. I could not see her yesterday. Apparently she developed shortness of breath and I did discuss with Dr. Norton over the phone. IV fluids were stopped yesterday and she was given Lasix. Nursing staff reports today that she made about 7 liters of urine. The patient reports improved dyspnea and denies any chest pain. She has no nausea or vomiting. PHYSICAL EXAMINATION: VITAL SIGNS: Temperature 98.5 degrees Fahrenheit, heart rate 90 per minute and respiratory rate 18 per minute. Blood pressure is 136/64 mm of mercury and oxygen saturation 93%. INTAKE AND OUTPUT: Intake and output records from yesterday show total intake 3,670 and 7,075 mL with a negative fluid balance of about 3,400 mL. HEENT: Head is atraumatic. NECK: Supple and without JVD or thyroid enlargement. HEART: Regular. LUNGS: Slightly diminished breath sounds. ABDOMEN: Obese and nontender. EXTREMITIES: Without any cyanosis or clubbing. Both feet are wrapping in dressings with some staining and drainage on the dressings. NEUROLOGICAL: Awake, alert and oriented x3. LABORATORY STUDIES: Today's labs show a white blood cell count of 16.0, hemoglobin 10.8 and hematocrit 34.7. Platelet count 701. Sodium 139, potassium 5.5, CO2 25, BUN 23 and creatinine 1.71. Glucose was 58 this morning and now most recent fingerstick blood sugar is 241. Calcium level 9.6. PROBLEMS: 1. Acute kidney injury superimposed on chronic kidney disease - kidney function seems to be leveled off with creatinine of 1.6 to 1.7 mg per deciliter. It is probably close to her baseline function. 2. Hyperkalemia This hyperkalemia seems to be unexpected. She diuresed more than 7 liters urine yesterday and I would anticipate hypoglycemia instead of hyperglycemia. She has not received any potassium supplement, naheed inhibitor or potassium sparing diuretic. I will repeat her BMP later today. 3. Shortness of breath she probably did get some volume overload and improved with Lasix. I agree with another dose of 40 mg of Lasix today in order to get some more negative fluid balance. 4. Bilateral foot infections - The patient remains on antibiotics and is currently afebrile. She is in need for an angiogram and currently she is not optimized. 5. Peripheral vascular disease - The patient is in need for angiogram to assess her vascular disease, however she is not optimized at present and we will monitor her closely on a daily basis.
[2020-07-25 14:18] VITALS: BP 137/61
[2020-07-25 15:00] LABS: CREATININE FOR GFR 1.88 MG/DL (0.55-1.30)
[2020-07-25 15:01] LABS: GLOMERULAR FILTRATION RATE 29.8 (>51); POTASSIUM SERUM 4.7 MEQ/L (3.5-5.1)
--- NOTE | 2020-07-25 17:14 | IPN ---
PROGRESS NOTE DATE: 07/24/2020 CHIEF COMPLAINT: Patient seen at bedside for evaluation of her left foot. The bandage was removed. There was a 7 cm incision now on the dorsal aspect of the foot. Plantar aspect of the foot has an approximately 8-9 cm incision. The dressing was removed from the wounds. The wound is now granulating and there is no additional erythema. The swelling previously present has greatly improved with resolution of the surrounding erythema. LABORATORY STUDIES: Reviewed. Her white count is 16.0. C-reactive protein is 14.2. MICROBACTEROLOGY: Reveals a growth of Enterococcus faecalis, Streptococcus Group B and gordonii. The Streptococcus gordonii is intermediate to ampicillin. The other two organisms are sensitive. All three are sensitive to vancomycin. Previous culture on July 20, 2020 reveals two anaerobic cocci growing as well. ASSESSMENT: Improving left wound abscess. PLAN: Continue with local wound care, consistent cleanings to the wound with Vashe and allowing to stand and then applying Drawtex dressing daily. Patient, on discharge, will follow up with Dr. August at the wound center. Her questions are answered.
[2020-07-25 20:15] VITALS: BP 189/95
[2020-07-25] MEDS: ATORVASTATIN 20 MG TAB PO SCH (20:15)
[2020-07-25 23:30] VITALS: BP 149/69
[2020-07-26] MEDS: PIPERACILLIN/TAZOBACTAM SOD 2.25 GM in D5W MINI-BAG PLUS 50 ML IV SCH ×4 (02:59→20:46)
[2020-07-26] MEDS: **hydrALAZINE HCL** 25 MG TAB PO SCH ×3 (05:55→17:04)
[2020-07-26] MEDS: SODIUM CHLORIDE 0.9% INJ 10 ML SYR IV SCH ×2 (05:56→17:03)
[2020-07-26 06:00] VITALS: BP 163/74
--- NOTE | 2020-07-26 07:37 | IPNPDOC ---
Date Seen The patient was seen on 07/26/20. Progress Note Patient seen and examined. Her renal function is still pretty tenuous. I agree with Dr. Nunes that this is not an appropriate time for an arteriogram, as we may put her kidney function at additional risk. I spoke with Dr. Alicea, and told him I felt it was safest if we hold off for a few weeks for arteriogram until her renal function has improved somewhat. He says he feels her foot is healing fairly well now that she is on appropriate antibiotics, and that her blood flow was moderately good at the time of debridement. Certainly she would benefit from improved revascularization for wound healing, but at this point I think the risks outweigh the benefits. We will reevaluate in a couple weeks. We appreciate the opportunity to participate in the care of this patient. VS, I&O, 24H, Fishbone Vital Signs/I&O Vital Signs Date Time Temp Pulse Resp B/P (MAP) Pulse Ox O2 Delivery O2 Flow Rate FiO2 07/26/20 06:00 97.5 80 18 163/74 (103) 93 Nasal Cannula 0.5 I&O- Last 24 Hours up to 6 AM 07/26/20 06:00 Intake Total 1400 ml Output Total 4425 ml Balance -3025 ml Laboratory Data 24H LABS Laboratory Tests 2 07/25/20 08:07: Immature Granulocyte % (Auto) , Neutrophils (%) (Auto) , Nucleated Red Blood Cells % (auto) 0.0, Neutrophils 53, Band Neutrophils 5, Lymphocytes (Manual) 27, Monocytes (Manual) 9H, Eosinophils (Manual) 3, Metamyelocytes 1H, Atypical Lymphocytes 2, Anisocytosis 1+, Platelet Estimate INCREASED, Anion Gap 10, G lomerular Filtration Rate 33.2L, Calcium Level 9.6 07/25/20 08:24: Bedside Glucose (Misc Panel) 66L 07/25/20 11:33: Bedside Glucose (Misc Panel) 241H 07/25/20 14:11: Anion Gap 9, Glomerular Filtration Rate 29.8L, Calcium Level 9.0 07/25/20 17:01: Bedside Glucose (Misc Panel) 295H 07/25/20 20:05: Bedside Glucose (Misc Panel) 296H CBC/BMP Laboratory Tests 07/25/20 08:07 07/25/20 14:11 Microbiology Microbiology 07/22/20 Respiratory Virus Panel (PCR) ([facility]) - Final, Complete 07/20/20 Anaerobic Culture, Received Pending 07/20/20 Gram Stain - Final, Complete 07/20/20 Abscess Culture - Final, Complete Enterococcus Faecalis Streptococcus Gordonii Strep Agalactiae Group B 07/17/20 Gram Stain - Final, Complete 07/17/20 Wound Culture - Final, Complete Corynebacterium Species Strep Agalactiae Group B Enterococcus Faecalis Streptococcus Gordonii 07/17/20 Anaerobic Culture - Final, Complete Anaerobic Cocci Anaerobic Cocci#2 Eubacterium Limosum 07/17/20 Gram Stain - Final, Complete 07/17/20 Wound Culture - Final, Complete Enterococcus Faecalis Corynebacterium Species 07/17/20 Blood Culture - Final, Complete NO GROWTH AFTER 5 DAYS 07/17/20 Blood Culture - Final, Complete NO GROWTH AFTER 5 DAYS JERRY QUIÑONES MD Jul 26, 2020 07:37
[2020-07-26] MEDS: CETIRIZINE (ZyrTEC) 10 MG TAB PO SCH (08:38)
[2020-07-26] MEDS: DULoxetine 30 MG CAP (CYMBALTA) PO SCH (08:38)
[2020-07-26] MEDS: GABAPENTIN 300 MG CAP PO SCH ×3 (08:38→20:46)
[2020-07-26] MEDS: MONTELUKAST 10 MG TAB PO SCH (08:38)
[2020-07-26] MEDS: amLODIPine 10 MG TAB PO SCH (08:38)
[2020-07-26] MEDS: ASPIRIN 81 MG ENTERIC TAB PO SCH (08:38)
[2020-07-26] MEDS: LEVEMIR (INSULIN DETEMIR) 1 UNITS/0.01ML SC SCH ×2 (08:39→20:46)
[2020-07-26] MEDS: HumaLOG INSULIN (NovoLOG) PER UNIT SC SCH ×4 (08:39→20:48)
[2020-07-26] MEDS: ENOXAPARIN 40MG/0.4ML SYRINGE (J1650 PER 10MG) SC SCH (08:39)
[2020-07-26 09:07] LABS: BASO # 0.1 10^3/uL (0.0-0.2); EOS # 0.5 10^3/uL (0.0-0.5); EOS % 3.5 % (0.0-3.0); HEMATOCRIT 33.4 % (36.0-47.0); HEMOGLOBIN 10.3 g/dl (12.0-15.5); LYMPH # 3.8 10^3/uL (1.5-5.0); LYMPH % 27.4 % (24.0-44.0); MEAN CORPUSCULAR HEMOGLOBIN 24.7 pg (27.0-33.0); MEAN CORPUSCULAR HGB CONC 30.8 g/dl (32.0-36.5); MEAN CORPUSCULAR VOLUME 80.1 fl (80.0-96.0); MONO % 6.8 % (0.0-5.0); NEUTROPHILS # 7.9 10^3/uL (1.5-8.5); NEUTROPHILS % 57.3 % (36.0-66.0); PLATELET COUNT, AUTOMATED 688 10^3/uL (150-450); RED BLOOD COUNT 4.17 10^6/uL (4.00-5.40); WHITE BLOOD COUNT 13.9 10^3/uL (4.0-10.0)
[2020-07-26 09:25] LABS: C REACTIVE PROTEIN QUANTITATIV 6.91 MG/DL (0.00-0.30); CALCIUM LEVEL 9.3 MG/DL (8.5-10.1); CREATININE FOR GFR 1.72 MG/DL (0.55-1.30); POTASSIUM SERUM 4.6 MEQ/L (3.5-5.1)
[2020-07-26 09:37] LABS: ERYTHROCYTE SEDIMENTATION RATE 118 mm/hr (0-30)
--- NOTE | 2020-07-26 11:22 | IPNPDOC ---
Text Note Date of Service The patient was seen on 07/26/20. NOTE SUBJECTIVE: SOB and chest discomfort all gone. Now off oxygen. Was aggressively diuresed past 2 days so her creatinine is a little up again but better than yesterday. PHYSICAL EXAMINATION: VITAL SIGNS: see below GENERAL APPEARANCE: sitting at the side of bed, alert oriented x 3 in no acute distress. HEENT: NC, AT, moist mucous membranes, anicteric eyes. CARDIOVASCULAR: S1S2 RRR , No rub or murmur or gallop LUNGS: Bilateral diminished air entry, clear to auscultation. ABDOMEN: obese soft nt nd +bs no hsm no rebound or guarding EXTREMITIES: left arm picc line b/l transmetatarsal amputation b/l bandaged feet SKIN: no maculopapular erythematous rash LABS and Radiology: reviewed IMAGIN07/17/20 XRAY LEFT FOOT Diffuse soft tissue swelling. There is soft tissue emphysema in the swollen medial soft tissues at midfoot level. A 2 cm focal soft tissue ulcer is seen along the plantar aspect. Patient is status post transmetatarsal forefoot amputation. Osteoarthritic changes are noted. No acute erosive changes are seen. No opaque foreign body noted.. MRI LEFT FOOT 07/17/20 1. Status post amputation of the 1st through 5th toes at the mid metatarsals. 2. Abnormal marrow space signal demonstrated in the distal 2nd and 3rd metatarsals with abnormal enhancement on post gadolinium imaging consistent with osteomyelitis. 3. Fluid demonstrated in the tendon sheath of the tibialis posterior tendon consistent with synovitis. Tendon appears intrinsically unremarkable. 4. Diffuse enhancement of the intrinsic muscles of the foot, findings which can be seen in association with myositis. 5. Diffuse soft tissue edema with a focal abscess demonstrated on the plantar aspect of the foot. 6. Synovitis demonstrated in the tendon sheath of the flexor hallucis longus and tibialis posterior tendon. PROCEDURES: 07/17/20 POSTOPERATIVE DIAGNOSIS: Deep abscess formation, possible osteomyelitis plantar surface left foot. PROCEDURE: Incision and drainage multiple abscesses plantar surface left foot. SURGEON: Justin Mon DPM ASSESSMENT and PLAN: 55 y/o F w pmh DM, neuropathy, Morbid obesity, chronic plantar ulcers, OM s/p b/l transmetatarsal amputations, HTN,dyslipidemia, bipolar, MRSA carrier, chronic osteo right foot and ankle was seen by ID Dr. Thomas on 07/16/20 and found to have increasing bloody and malodorous drainage out of the left plantar foot ulcer with fever 101, started on levaquin. Blood work and wound cultures were taken in the office, and pt was sent to ER for admission for sepsis, left foot diabetic infection , osteomyelitis. Now S/p I&D of the left foot by Dr Mon. Hospital course was complicated by anemia requiring 2 units of PRBC and contrast nephropathy causing MONIQUE. Now with SOB and oxygen requirement in hospital. Hypoxia due to fluid overload, improved with lasix. Last echo was in 2014 did have some suggestion of diastolic dysfunction. New echo pending. Left distal 2nd and 3rd metatarsal osteomyelitis/ left plantar foot abscess 1.8x1.8 x 2.1 cm left foot myositis/ flexor hallucis longus and tibialis posterior tendon synovitis Multiple organisms as well as anareobic organisms. on iv Zosyn No MRSA in cultures s/p incision and debridement by dr mon x2 awaiting renal function to improve prior to angiogram by vascular to eval for peripheral vascular disease to improve circulation for wound healing. This is to be done as outpatient after a few weeks. H/o MSSA and group B Strep osteomyelitis of the right foot. The patient was on Dicloxacillin for over three months, that is healing well. Anemia s/p 2u rbc transfusion due to chronic disease, phlebotomy and probable iron def. MONIQUE on CKD Multifactorial. probably due to vanco toxicity on the back ground of ibuprofen and ACEI and sepsis Better DM2 w neuropathy consistent carbs fingersticks q achs w coverage cymbalta. 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 VS,Fishbone, I+O VS, Fishbone, I+O Laboratory Tests 07/25/20 14:11 Vital Signs Date Time Temp Pulse Resp B/P (MAP) Pulse Ox O2 Delivery O2 Flow Rate FiO2 07/26/20 06:00 97.5 80 18 163/74 (103) 93 Nasal Cannula 0.5 I&O- Last 24 Hours up to 6 AM 07/26/20 06:00 Intake Total 1400 ml Output Total 4425 ml Balance -3025 ml RAY,GLORIA MD Jul 26, 2020 08:37
--- NOTE | 2020-07-26 12:04 | IPN ---
NEPHROLOGY PROGRESS NOTE DATE: 07/26/20 SUBJECTIVE: Ms. Goetz is seen this morning on her bedside. She is sitting in the chair at the time of my visit. She is feeling much better and her oxygenation has improved. She is not requiring oxygen supplementation anymore. She denies any nausea or vomiting. She has no fever or chills. She has bilateral wounds on her feet and needs an angiogram to assess her vascular flow. She developed acute kidney injury and volume overload due to intravenous I.V. fluids; now her volume status has improved significantly with diuresis. PHYSICAL EXAMINATION: Temperature 97.5 degrees Fahrenheit, heart rate 80 per minute and respiratory rate 18 per minute. Blood pressure 156/64 mmHg and oxygen saturation 93% on room air. Intake and output record from yesterday show total intake 1400 and output 5350. Even today she is negative fluid balance of about 1300 mL so far. Head: Atraumatic. Neck: Supple and JVD not abnormally elevated sitting upright. Heart: Sounds are regular. Lungs: Clear to auscultation. Abdomen: Obese, soft and nontender and bowel sounds are normal. Extremities: Without any cyanosis or clubbing. Bilateral feet are in dressings. Lower extremity edema is now minimal. Neurologically: She is awake, alert and oriented times 3. LABORATORY DATA: Today's labs show WBC count 13.9, hemoglobin 10.3, hematocrit 33.4 and platelets 688. Sodium 138, potassium 4.6, CO2 24, BUN 26, creatinine 1.72, glucose 166 and calcium 9.3. C-reactive protein is down to 6.91. PROBLEMS/PLAN: 1. Acute kidney injury superimposed on chronic kidney disease: No significant change in her kidney function. Her GFR has been between 30 and 33 mL per minute for the last 5 days. Electrolytes are stable. 2. Hypervolemia: Volume status has improved significantly with diuresis. I would not want her to get volume depletion as she is going to need an angiogram of her lower extremities. I will hold off on further diuresis at this point. 3. Peripheral vascular disease and bilateral foot wounds: Patient is in need of angiogram and I feel that she is now optimized for the procedure. We will keep her off further diuretic or I.V. fluids. She understands the risk to her kidneys due to I.V. contrast and will need to be monitored closely. 4. Anemia: At present her anemia is stable and does not need any urgent intervention. 5. Infected foot wounds: She remains on antibiotics and has been on Zosyn. Dose has been adjusted for her renal function. 6. Hypertension: Blood pressure seems well controlled on current anti-hypertensive medications.
[2020-07-26 14:00] VITALS: BP 145/71
[2020-07-26] MEDS: ATORVASTATIN 20 MG TAB PO SCH (20:46)
[2020-07-26 22:00] VITALS: BP 163/76
[2020-07-27] MEDS: **hydrALAZINE HCL** 25 MG TAB PO SCH ×5 (00:28→17:29)
[2020-07-27] MEDS: PIPERACILLIN/TAZOBACTAM SOD 2.25 GM in D5W MINI-BAG PLUS 50 ML IV SCH ×4 (02:41→20:32)
[2020-07-27] MEDS: SODIUM CHLORIDE 0.9% INJ 10 ML SYR IV SCH ×2 (05:47→17:30)
[2020-07-27] MEDS: NORCO, ANEXSIA 5/325MG TABLET (HYDROcodone/ACETAMINOPHEN) PO PRN ×2 (05:53→19:56)
[2020-07-27 06:00] VITALS: BP 162/73
[2020-07-27 06:56] LABS: BASO # 0.1 10^3/uL (0.0-0.2); EOS # 0.5 10^3/uL (0.0-0.5); EOS % 3.2 % (0.0-3.0); HEMATOCRIT 35.7 % (36.0-47.0); HEMOGLOBIN 10.8 g/dl (12.0-15.5); LYMPH # 3.8 10^3/uL (1.5-5.0); LYMPH % 25.9 % (24.0-44.0); MEAN CORPUSCULAR HEMOGLOBIN 24.3 pg (27.0-33.0); MEAN CORPUSCULAR HGB CONC 30.3 g/dl (32.0-36.5); MEAN CORPUSCULAR VOLUME 80.4 fl (80.0-96.0); MONO # 0.8 10^3/uL (0.0-0.8); MONO % 5.2 % (0.0-5.0); NEUTROPHILS # 9.1 10^3/uL (1.5-8.5); NEUTROPHILS % 62.5 % (36.0-66.0); PLATELET COUNT, AUTOMATED 760 10^3/uL (150-450); RED BLOOD COUNT 4.44 10^6/uL (4.00-5.40); WHITE BLOOD COUNT 14.6 10^3/uL (4.0-10.0)
[2020-07-27 07:15] LABS: CALCIUM LEVEL 9.2 MG/DL (8.5-10.1); CREATININE FOR GFR 1.75 MG/DL (0.55-1.30); GLOMERULAR FILTRATION RATE 32.4 (>51); POTASSIUM SERUM 4.9 MEQ/L (3.5-5.1)
[2020-07-27] MEDS: HumaLOG INSULIN (NovoLOG) PER UNIT SC SCH ×4 (07:27→19:57)
[2020-07-27] MEDS: GABAPENTIN 300 MG CAP PO SCH ×3 (08:43→19:56)
[2020-07-27] MEDS: MONTELUKAST 10 MG TAB PO SCH (08:43)
[2020-07-27] MEDS: CETIRIZINE (ZyrTEC) 10 MG TAB PO SCH (08:43)
[2020-07-27] MEDS: ASPIRIN 81 MG ENTERIC TAB PO SCH (08:43)
[2020-07-27] MEDS: ENOXAPARIN 40MG/0.4ML SYRINGE (J1650 PER 10MG) SC SCH (08:43)
[2020-07-27] MEDS: LEVEMIR (INSULIN DETEMIR) 1 UNITS/0.01ML SC SCH ×2 (08:44→19:56)
[2020-07-27] MEDS: DULoxetine 30 MG CAP (CYMBALTA) PO SCH (08:44)
[2020-07-27] MEDS: amLODIPine 10 MG TAB PO SCH (08:44)
--- NOTE | 2020-07-27 12:59 | IPNPDOC ---
Text Note Date of Service The patient was seen on 07/27/20. NOTE SUBJECTIVE: Feeling good today. No complaints, no overnight events. PHYSICAL EXAMINATION: VITAL SIGNS: see below GENERAL APPEARANCE: sitting at the side of bed, alert oriented x 3 in no acute distress. HEENT: NC, AT, moist mucous membranes, anicteric eyes. CARDIOVASCULAR: S1S2 RRR , No rub or murmur or gallop LUNGS: Bilateral diminished air entry, clear to auscultation. ABDOMEN: obese soft nt nd +bs no hsm no rebound or guarding EXTREMITIES: left arm picc line b/l transmetatarsal amputation . right Stump healed, ulcer closed with granulation tissue. Left stump with deep open wound T shaped , Planter wound about 10 cm then extending up to the dorsum about 8 cm. Deep with some adherent fibrin at the base. fresh blood and granulation tissues. SKIN: no maculopapular erythematous rash LABS and Radiology: reviewed IMAGIN07/17/20 XRAY LEFT FOOT Diffuse soft tissue swelling. There is soft tissue emphysema in the swollen medial soft tissues at midfoot level. A 2 cm focal soft tissue ulcer is seen along the plantar aspect. Patient is status post transmetatarsal forefoot amputation. Osteoarthritic changes are noted. No acute erosive changes are seen. No opaque foreign body noted.. MRI LEFT FOOT 07/17/20 1. Status post amputation of the 1st through 5th toes at the mid metatarsals. 2. Abnormal marrow space signal demonstrated in the distal 2nd and 3rd metatarsals with abnormal enhancement on post gadolinium imaging consistent with osteomyelitis. 3. Fluid demonstrated in the tendon sheath of the tibialis posterior tendon consistent with synovitis. Tendon appears intrinsically unremarkable. 4. Diffuse enhancement of the intrinsic muscles of the foot, findings which can be seen in association with myositis. 5. Diffuse soft tissue edema with a focal abscess demonstrated on the plantar aspect of the foot. 6. Synovitis demonstrated in the tendon sheath of the flexor hallucis longus and tibialis posterior tendon. PROCEDURES: 07/17/20 POSTOPERATIVE DIAGNOSIS: Deep abscess formation, possible osteomyelitis plantar surface left foot. PROCEDURE: Incision and drainage multiple abscesses plantar surface left foot. SURGEON: Justin Mon DPM ASSESSMENT and PLAN: 55 y/o F w pmh DM, neuropathy, Morbid obesity, chronic plantar ulcers, OM s/p b/l transmetatarsal amputations, HTN,dyslipidemia, bipolar, MRSA carrier, chronic osteo right foot and ankle was seen by ID Dr. Thomas on 07/16/20 and found to have increasing bloody and malodorous drainage out of the left plantar foot ulcer with fever 101, started on levaquin. Blood work and wound cultures were taken in the office, and pt was sent to ER for admission for sepsis, left foot diabetic infection , osteomyelitis. Now S/p I&D of the left foot by Dr Mon. Hospital course was complicated by anemia requiring 2 units of PRBC and contrast nephropathy causing MONIQUE. Developed fluid overload in hospital responded to lasix. Hypoxia Resolved. due to fluid overload, improved with lasix. Last echo was in 2014 did have some suggestion of diastolic dysfunction. New echo pending. Left distal 2nd and 3rd metatarsal osteomyelitis/ left plantar foot abscess 1.8x1.8 x 2.1 cm left foot myositis/ flexor hallucis longus and tibialis posterior tendon synovitis Multiple organisms as well as anareobic organisms. on iv Zosyn No MRSA in cultures s/p incision and debridement by dr mon x2 as per Dr Nunes her renal functions are optimized at present and she could go for angiogram. Dr Gary plans to do this outpatient in 2 weeks. will go to [place] on 07/31/20 with Zosyn continuous infusion. H/o MSSA and group B Strep osteomyelitis of the right foot. The patient was on Dicloxacillin for over three months, that is healing well. Closed with granulation tissue. Anemia s/p 2u rbc transfusion due to chronic disease, phlebotomy and probable iron def. MONIQUE on CKD Multifactorial. probably due to vanco toxicity on the back ground of ibuprofen and ACEI and sepsis Creatinine has stabilized around the 1.7 range DM2 w neuropathy consistent carbs fingersticks q achs w coverage cymbalta. 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 VS,Fishbone, I+O VS, Fishbone, I+O Laboratory Tests 07/27/20 06:19 Vital Signs Date Time Temp Pulse Resp B/P (MAP) Pulse Ox O2 Delivery O2 Flow Rate FiO2 07/27/20 08:44 87 162/73 07/27/20 06:23 18 07/27/20 06:00 98.0 95 Room Air 07/26/20 21:00 I&O- Last 24 Hours up to 6 AM 07/27/20 06:00 Intake Total 1360 ml Output Total 3750 ml Balance -2390 ml GLORIA FRAGA MD Jul 27, 2020 12:59
[2020-07-27 14:23] VITALS: BP 140/63
[2020-07-27 19:46] VITALS: BP 153/74
[2020-07-27] MEDS: ATORVASTATIN 20 MG TAB PO SCH (19:56)
[2020-07-28] VITALS: BP 156/76
[2020-07-28] MEDS: PIPERACILLIN/TAZOBACTAM SOD 2.25 GM in D5W MINI-BAG PLUS 50 ML IV SCH ×4 (03:00→21:14)
[2020-07-28] MEDS: SODIUM CHLORIDE 0.9% INJ 10 ML SYR IV SCH ×2 (05:11→17:08)
[2020-07-28] MEDS: **hydrALAZINE HCL** 25 MG TAB PO SCH ×2 (05:11)
[2020-07-28 05:59] VITALS: BP 168/68
[2020-07-28 07:37] LABS: BASO # 0.1 10^3/uL (0.0-0.2); BASO % 1.1 % (0.0-1.0); EOS # 0.5 10^3/uL (0.0-0.5); EOS % 4.4 % (0.0-3.0); HEMATOCRIT 34.2 % (36.0-47.0); HEMOGLOBIN 10.5 g/dl (12.0-15.5); LYMPH # 3.7 10^3/uL (1.5-5.0); LYMPH % 31.6 % (24.0-44.0); MEAN CORPUSCULAR HEMOGLOBIN 24.7 pg (27.0-33.0); MEAN CORPUSCULAR HGB CONC 30.7 g/dl (32.0-36.5); MEAN CORPUSCULAR VOLUME 80.5 fl (80.0-96.0); MONO # 0.8 10^3/uL (0.0-0.8); MONO % 6.7 % (0.0-5.0); NEUTROPHILS # 6.4 10^3/uL (1.5-8.5); NEUTROPHILS % 54.4 % (36.0-66.0); PLATELET COUNT, AUTOMATED 697 10^3/uL (150-450); RED BLOOD COUNT 4.25 10^6/uL (4.00-5.40); WHITE BLOOD COUNT 11.7 10^3/uL (4.0-10.0)
[2020-07-28 08:00] LABS: C REACTIVE PROTEIN QUANTITATIV 3.18 MG/DL (0.00-0.30); CREATININE FOR GFR 1.64 MG/DL (0.55-1.30); GLOMERULAR FILTRATION RATE 34.9 (>51); POTASSIUM SERUM 4.6 MEQ/L (3.5-5.1)
[2020-07-28 08:23] LABS: ERYTHROCYTE SEDIMENTATION RATE 107 mm/hr (0-30)
[2020-07-28] MEDS: LEVEMIR (INSULIN DETEMIR) 1 UNITS/0.01ML SC SCH ×2 (08:39→21:14)
[2020-07-28] MEDS: HumaLOG INSULIN (NovoLOG) PER UNIT SC SCH ×4 (08:40→21:00)
[2020-07-28] MEDS: amLODIPine 10 MG TAB PO SCH (08:41)
[2020-07-28] MEDS: MONTELUKAST 10 MG TAB PO SCH (08:41)
[2020-07-28] MEDS: DULoxetine 30 MG CAP (CYMBALTA) PO SCH (08:41)
[2020-07-28] MEDS: ENOXAPARIN 40MG/0.4ML SYRINGE (J1650 PER 10MG) SC SCH (08:41)
[2020-07-28] MEDS: ASPIRIN 81 MG ENTERIC TAB PO SCH (08:41)
[2020-07-28] MEDS: CETIRIZINE (ZyrTEC) 10 MG TAB PO SCH (08:41)
[2020-07-28] MEDS: GABAPENTIN 300 MG CAP PO SCH ×3 (08:41→21:15)
--- NOTE | 2020-07-28 09:10 | IPN ---
PROGRESS NOTE DATE: 07/27/2020 Iliana is feeling much better today. She states her shortness of breath has improved. She is off oxygen. She diuresed at least 5 liters after a dose of Lasix. She is [facility]. PHYSICAL EXAMINATION: She is sitting at the bedside while the physical exam was done with Dr. Norton in the room and her nurse through a Zoom meeting. Lungs: Diminished at the bases. Abdomen: Soft, nontender. Extremities: Bilateral transmetatarsal amputation. The right one was granulation tissue without any purulence or cellulitis. There is still sanguineous discharge on the dressing. The right one is healing well. The left foot transmetatarsal amputation, there is a large wound that measures about 10 cm on the plantar aspect of the foot, extends about 8 cm medially and there is adherent fibrin as well as some purulent discharge. There is serosanguineous drainage. Vital signs: Temperature is 97.9, pulse 83, respirations 18, blood pressure 153/74, oxygen saturation 95% on room air. Her last temperature was 07/22/2020. LABORATORY DATA: White count 14.6, hemoglobin 10.8, hematocrit 35.7, platelets 760, 62% neutrophils, 26% lymphocytes, 5% monocytes, sodium 138, potassium 4.9, chloride 102, bicarbonate 25, BUN 26, creatinine 1.75, glucose 217, calcium 9.2, CRP 6.91, down from 14.2 a couple of days ago and 31.8 on admission. Wound culture had Enterococcus (E) faecalis, Streptococcus gordonii, and group B Streptococcus, and three anaerobes including two cocci and new bacterium ramosum. MEDICATION: - Zosyn 2.25 grams IV every 6 hours, currently day #8 Chest x-ray 07/24/2020 shows moderate perihilar opacity infiltrate suspected, no effusion. IMPRESSION: 1. Acute osteomyelitis of the left foot with deep abscess polymicrobial jace with Streptococcus gordonii, Enterococcus (E) faecalis, Streptococcus group B, doing much better on IV Zosyn and status post debridement. Patient will need 6 weeks of IV antibiotic and [facility]ci placement as she is noncompliant to her treatment with her diabetes care and offloading. 2. Fluid overload has resolved as well as hypoxia after diuresis. She diuresed at least 5 liters yesterday. PLAN: The case has been discussed with Dr. Yu who is checking to make sure that we can do continuous infusion of [facility]yn at the [facility] as she will need every 6 hours treatment or continuous infusion of 9 grams daily. Continue to monitor complete blood count (CBC), erythrocyte sedimentation rate (ESR), C-reactive protein (CRP) weekly. This visit was a telemedicine visit with Zoom in the presence of Dr.Aruna Norton and the nurse taking care of the patient. JACOB
--- NOTE | 2020-07-28 10:29 | IPNPDOC ---
Text Note Date of Service The patient was seen on 07/28/20. NOTE SUBJECTIVE: Feeling good today. No complaints, no overnight events. No SOB or cough PHYSICAL EXAMINATION: VITAL SIGNS: see below GENERAL APPEARANCE: sitting at the side of bed, alert oriented x 3 in no acute distress. HEENT: NC, AT, moist mucous membranes, anicteric eyes. CARDIOVASCULAR: S1S2 RRR , No rub or murmur or gallop LUNGS: Bilateral diminished air entry, clear to auscultation. ABDOMEN: obese soft nt nd +bs no hsm no rebound or guarding EXTREMITIES: left arm picc line b/l transmetatarsal amputation . right Stump healed, ulcer closed with granulation tissue. Left stump with deep open wound T shaped , Planter wound about 10 cm then extending up to the dorsum about 8 cm. Deep with some adherent fibrin at the base. fresh blood and granulation tissues. SKIN: no maculopapular erythematous rash LABS and Radiology: reviewed IMAGIN07/17/20 XRAY LEFT FOOT Diffuse soft tissue swelling. There is soft tissue emphysema in the swollen medial soft tissues at midfoot level. A 2 cm focal soft tissue ulcer is seen along the plantar aspect. Patient is status post transmetatarsal forefoot amputation. Osteoarthritic changes are noted. No acute erosive changes are seen. No opaque foreign body noted.. MRI LEFT FOOT 07/17/20 1. Status post amputation of the 1st through 5th toes at the mid metatarsals. 2. Abnormal marrow space signal demonstrated in the distal 2nd and 3rd metatarsals with abnormal enhancement on post gadolinium imaging consistent with osteomyelitis. 3. Fluid demonstrated in the tendon sheath of the tibialis posterior tendon consistent with synovitis. Tendon appears intrinsically unremarkable. 4. Diffuse enhancement of the intrinsic muscles of the foot, findings which can be seen in association with myositis. 5. Diffuse soft tissue edema with a focal abscess demonstrated on the plantar aspect of the foot. 6. Synovitis demonstrated in the tendon sheath of the flexor hallucis longus and tibialis posterior tendon. PROCEDURES: 07/17/20 POSTOPERATIVE DIAGNOSIS: Deep abscess formation, possible osteomyelitis plantar surface left foot. PROCEDURE: Incision and drainage multiple abscesses plantar surface left foot. SURGEON: Justin Mon DPM ASSESSMENT and PLAN: 55 y/o F w pmh DM, neuropathy, Morbid obesity, chronic plantar ulcers, OM s/p b/l transmetatarsal amputations, HTN,dyslipidemia, bipolar, MRSA carrier, chr onic osteo right foot and ankle was seen by ID Dr. Thomas on 07/16/20 and found to have increasing bloody and malodorous drainage out of the left plantar foot ulcer with fever 101, started on levaquin. Blood work and wound cultures were taken in the office, and pt was sent to ER for admission for sepsis, left foot diabetic infection , osteomyelitis. Now S/p I&D of the left foot by Dr Mon. Hospital course was complicated by anemia requiring 2 units of PRBC and contrast nephropathy causing MONIQUE. Developed fluid overload in hospital responded to lasix. Left distal 2nd and 3rd metatarsal osteomyelitis/ left plantar foot abscess 1.8x1.8 x 2.1 cm left foot myositis/ flexor hallucis longus and tibialis posterior tendon synovitis Multiple organisms as well as anaerobic organisms. on iv Zosyn No MRSA in cultures s/p incision and debridement by dr mon x2 as per Dr Nunes her renal functions are optimized at present and she could go for angiogram. Dr Gary plans to do this outpatient in 2 weeks. Had telemedicine consult with Dr Thomas on 07/27/20. Final antibiotic recommendation : Zosyn continuous infusion 9 gms / day for 6 weeks starting from 07/17/20. Dr Gil is looking into getting the continuos infusion part whether it can be done or not. Other denny it is going to be Q6 hours. will go to [place] on 07/31/20. H/o MSSA and group B Strep osteomyelitis of the right foot. The patient was on Dicloxacillin for over three months, that is healing well. Closed with granulation tissue. Hypoxia Resolved. due to fluid overload, improved with lasix. Last echo was in 2014 did have some suggestion of diastolic dysfunction. New echo done , report pending. Anemia s/p 2u rbc transfusion due to chronic disease, phlebotomy and probable iron def. MONIQUE on CKD Multifactorial. probably due to vanco toxicity on the back ground of ibuprofen and ACEI and sepsis Creatinine has stabilized around the 1.7 range DM2 w neuropathy consistent carbs fingersticks q achs w coverage cymbalta. 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 VS,Fishbone, I+O VS, Fishbone, I+O Laboratory Tests 07/28/20 07:28 Vital Signs Date Time Temp Pulse Resp B/P (MAP) Pulse Ox O2 Delivery O2 Flow Rate FiO2 07/28/20 05:59 98.0 79 18 168/68 (101) 95 Room Air 07/26/20 21:00 I&O- Last 24 Hours up to 6 AM 07/28/20 06:00 Intake Total 2180 ml Output Total 1300 ml Balance 880 ml GLORIA FRAGA MD Jul 28, 2020 10:29
[2020-07-28 14:00] VITALS: BP 150/73
[2020-07-28] MEDS: **hydrALAZINE** 50 MG TAB PO SCH ×2 (14:00→21:14)
--- NOTE | 2020-07-28 18:07 | IPN ---
NEPHROLOGY PROGRESS NOTE DATE: 07/28/2020 SUBJECTIVE: Patient was seen and examined at the bedside today morning. She is afebrile and hemodynamically stable. She reports that the pain in her feet is getting better. Her leukocytosis is improving. She continues to be on I.V. antibiotics. Renal function is also stable with a creatinine of 1.6 today and she also reports improving edema of the bilateral lower extremities. OBJECTIVE: VITAL SIGNS: Temperature 98 degrees Fahrenheit, blood pressure 168/68, pulse 79, respiratory rate 18, saturating 95% on room air. INTAKE AND OUTPUT: Urine output recorded yesterday as 2.4 liters, so far today since overnight she has made 500 mL of urine. Weight in the bed scale is not available. PHYSICAL EXAMINATION: GENERAL: Patient is awake, alert and oriented x3, sitting up in the bed, in no apparent distress. HEAD/NECK: Extraocular muscles intact. Pupils equally round and reactive to light. Mucous membranes are moist. Neck is supple. There is no JVD. CARDIOVASCULAR: S1, S2, regular rate. Very trace edema of the bilateral ankles. RESPIRATORY: Chest is clear to auscultation bilaterally. Bilateral equal air entry. No rales or rhonchi. ABDOMEN: Soft, obese, positive bowel sounds, nontender. MUSCULOSKELETAL: She has bilateral transmetatarsal amputations. Bilateral feet are covered in dressing. There is very trace edema on the ankles as mentioned above. 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 Power is 5/5 in all extremities. LABORATORY REVIEW: CBC showed WBC 11.7, hemoglobin 10.5, platelets 697,000. BMP showed sodium 138, potassium 4.6, chloride 103, bicarb 24, BUN 25, creatinine 1.6, calcium 9. C-reactive protein 3.18, which is improving. MICROBIOLOGY: Anaerobic culture of the left foot from July 20 2020 is growing Veillonella parvula. IMAGING STUDIES: No new imaging is available at this time. CURRENT INPATIENT MEDICATIONS: Patient's medications were all reviewed by myself. She continues to be on I.V. Zosyn at this time. She is currently not on any diuretics. ASSESSMENT AND PLAN: 1. Acute kidney injury superimposed on chronic kidney disease: Patient's renal function is stable. Creatinine is at 1.6 now. Okay to continue current dose of antibiotics. Electrolytes are within the acceptable range. 2. Lower extremity edema: Volume status is optimized. He is currently not on any diuretics. Diuretics will be given on an as needed basis only. 3. Anemia and chronic kidney disease: Hemoglobin level is 10.5, which is optimal at this time. No need of Aranesp administration at this time. 4. Hypertension: Blood pressure is well controlled with current regimen of Amlodipine 10 mg p.o. daily and Hydralazine 50 mg p.o. every 8 hours. 5. Osteomyelitis of the left foot with a deep abscess: Patient had polymicrobial infection. She is currently on I.V. Zosyn. Infectious disease is on broad. C-reactive protein and leukocytosis is improving.
[2020-07-28] MEDS: ATORVASTATIN 20 MG TAB PO SCH (21:14)
[2020-07-28] MEDS: NORCO, ANEXSIA 5/325MG TABLET (HYDROcodone/ACETAMINOPHEN) PO PRN (21:15)
[2020-07-28] MEDS: SODIUM CHLORIDE 0.9% INJ 10 ML SYR IV PRN (21:16)
[2020-07-28 22:00] VITALS: BP 151/68
[2020-07-29] MEDS: SODIUM CHLORIDE 0.9% INJ 10 ML SYR IV SCH ×2 (03:04→16:28)
[2020-07-29] MEDS: PIPERACILLIN/TAZOBACTAM SOD 2.25 GM in D5W MINI-BAG PLUS 50 ML IV SCH ×4 (03:04→21:13)
[2020-07-29] MEDS: **hydrALAZINE** 50 MG TAB PO SCH ×3 (05:18→21:14)
[2020-07-29] MEDS: ACETAMINOPHEN TAB 650MG DOSE (2X325MG) PO PRN ×2 (05:18→21:13)
[2020-07-29 06:00] VITALS: BP 135/59
[2020-07-29 06:53] LABS: BASO # 0.1 10^3/uL (0.0-0.2); BASO % 1.1 % (0.0-1.0); EOS # 0.4 10^3/uL (0.0-0.5); EOS % 3.5 % (0.0-3.0); HEMOGLOBIN 10.4 g/dl (12.0-15.5); LYMPH # 3.9 10^3/uL (1.5-5.0); LYMPH % 35.7 % (24.0-44.0); MEAN CORPUSCULAR HEMOGLOBIN 24.9 pg (27.0-33.0); MEAN CORPUSCULAR HGB CONC 30.6 g/dl (32.0-36.5); MEAN CORPUSCULAR VOLUME 81.3 fl (80.0-96.0); MONO # 0.7 10^3/uL (0.0-0.8); MONO % 6.4 % (0.0-5.0); NEUTROPHILS # 5.8 10^3/uL (1.5-8.5); NEUTROPHILS % 52.2 % (36.0-66.0); PLATELET COUNT, AUTOMATED 687 10^3/uL (150-450); RED BLOOD COUNT 4.18 10^6/uL (4.00-5.40)
[2020-07-29 07:13] LABS: CALCIUM LEVEL 9.2 MG/DL (8.5-10.1); CREATININE FOR GFR 1.96 MG/DL (0.55-1.30); GLOMERULAR FILTRATION RATE 28.4 (>51); POTASSIUM SERUM 4.5 MEQ/L (3.5-5.1)
[2020-07-29] MEDS: LEVEMIR (INSULIN DETEMIR) 1 UNITS/0.01ML SC SCH ×2 (08:25→21:15)
[2020-07-29] MEDS: HumaLOG INSULIN (NovoLOG) PER UNIT SC SCH ×4 (08:26→21:14)
[2020-07-29] MEDS: DULoxetine 30 MG CAP (CYMBALTA) PO SCH (08:27)
[2020-07-29] MEDS: CETIRIZINE (ZyrTEC) 10 MG TAB PO SCH (08:27)
[2020-07-29] MEDS: MONTELUKAST 10 MG TAB PO SCH (08:27)
[2020-07-29] MEDS: ASPIRIN 81 MG ENTERIC TAB PO SCH (08:27)
[2020-07-29] MEDS: amLODIPine 10 MG TAB PO SCH (08:27)
[2020-07-29] MEDS: ENOXAPARIN 40MG/0.4ML SYRINGE (J1650 PER 10MG) SC SCH (08:27)
[2020-07-29] MEDS: GABAPENTIN 300 MG CAP PO SCH ×3 (08:27→21:13)
--- NOTE | 2020-07-29 09:01 | IPNPDOC ---
Text Note Date of Service The patient was seen on 07/29/20. NOTE SUBJECTIVE: Feeling good today. No complaints, no overnight events. No SOB or cough, creatinine up today. PHYSICAL EXAMINATION: VITAL SIGNS: see below GENERAL APPEARANCE: sitting at the side of bed, alert oriented x 3 in no acute distress. HEENT: NC, AT, moist mucous membranes, anicteric eyes. CARDIOVASCULAR: S1S2 RRR , No rub or murmur or gallop LUNGS: Bilateral diminished air entry, clear to auscultation. ABDOMEN: obese soft nt nd +bs no hsm no rebound or guarding EXTREMITIES: left arm picc line b/l transmetatarsal amputation . right Stump healed, ulcer closed with granulation tissue. Left stump with deep open wound T shaped , Planter wound about 10 cm then extending up to the dorsum about 8 cm. Deep with some adherent fibrin at the base. fresh blood and granulation tissues. SKIN: no maculopapular erythematous rash LABS and Radiology: reviewed IMAGIN07/17/20 XRAY LEFT FOOT Diffuse soft tissue swelling. There is soft tissue emphysema in the swollen m edial soft tissues at midfoot level. A 2 cm focal soft tissue ulcer is seen along the plantar aspect. Patient is status post transmetatarsal forefoot amputation. Osteoarthritic changes are noted. No acute erosive changes are seen. No opaque foreign body noted.. MRI LEFT FOOT 07/17/20 1. Status post amputation of the 1st through 5th toes at the mid metatarsals. 2. Abnormal marrow space signal demonstrated in the distal 2nd and 3rd metatarsals with abnormal enhancement on post gadolinium imaging consistent with osteomyelitis. 3. Fluid demonstrated in the tendon sheath of the tibialis posterior tendon consistent with synovitis. Tendon appears intrinsically unremarkable. 4. Diffuse enhancement of the intrinsic muscles of the foot, findings which can be seen in association with myositis. 5. Diffuse soft tissue edema with a focal abscess demonstrated on the plantar aspect of the foot. 6. Synovitis demonstrated in the tendon sheath of the flexor hallucis longus and tibialis posterior tendon. PROCEDURES: 07/17/20 POSTOPERATIVE DIAGNOSIS: Deep abscess formation, possible osteomyelitis plantar surface left foot. PROCEDURE: Incision and drainage multiple abscesses plantar surface left foot. SURGEON: Justin Mon DPM ASSESSMENT and PLAN: 55 y/o F w pmh DM, neuropathy, Morbid obesity, chronic plantar ulcers, OM s/p b/l transmetatarsal amputations, HTN,dyslipidemia, bipolar, MRSA carrier, chronic osteo right foot and ankle was seen by ID Dr. Thomas on 07/16/20 and found to have increasing bloody and malodorous drainage out of the left plantar foot ulcer with fever 101, started on levaquin. Blood work and wound cultures were taken in the office, and pt was sent to ER for admission for sepsis, left foot diabetic infection , osteomyelitis. Now S/p I&D of the left foot by Dr Mon. Hospital course was complicated by anemia requiring 2 units of PRBC and contrast nephropathy causing MONIQUE. Developed fluid overload in hospital responded to lasix. Left distal 2nd and 3rd metatarsal osteomyelitis/ left plantar foot abscess 1.8x1.8 x 2.1 cm left foot myositis/ flexor hallucis longus and tibialis posterior tendon synovitis Multiple organisms as well as anaerobic organisms. on iv Zosyn No MRSA in cultures s/p incision and debridement by dr mon x2 Dr Gary plans to do an arteriogram outpatient in about 2 weeks once renal functions improve a bit. Had telemedicine consult with Dr Thomas on 07/27/20. Final antibiotic recommendation : Zosyn continuous infusion 9 gms / day for 6 weeks starting from 07/17/20. Dr Gil is looking into getting the continuos infusion part whether it can be done or not. Other denny it is going to be Q6 hours. will go to [place] on 07/31/20. H/o MSSA and group B Strep osteomyelitis of the right foot. The patient was on Dicloxacillin for over three months, that is healing well. Closed with granulation tissue. Hypoxia Resolved. due to fluid overload, improved with lasix. Last echo was in 2014 did have some suggestion of diastolic dysfunction. New echo done , report pending. Anemia s/p 2u rbc transfusion due to chronic disease, phlebotomy and probable iron def. MONIQUE on CKD Multifactorial. probably due to vanco toxicity on the back ground of ibuprofen and ACEI and sepsis Creatinine has stabilized around the 1.7 range DM2 w neuropathy consistent carbs fingersticks q achs w coverage cymbalta. 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 VS,Fishbone, I+O VS, Fishbone, I+O Laboratory Tests 07/29/20 06:31 Vital Signs Date Time Temp Pulse Resp B/P (MAP) Pulse Ox O2 Delivery O2 Flow Rate FiO2 07/29/20 08:27 98 135/59 07/29/20 06:00 98.3 18 94 Room Air 07/26/20 21:00 I&O- Last 24 Hours up to 6 AM 07/29/20 06:00 Intake Total 1270 ml Output Total 1700 ml Balance -430 ml GLORIA FRAGA MD Jul 29, 2020 09:01
--- NOTE | 2020-07-29 13:06 | IPN ---
NEPHROLOGY PROGRESS NOTE DATE: 07/29/2020 SUBJECTIVE: Patient was seen and examined at the bedside today morning. She is afebrile, hemodynamically stable. Renal function has slightly worsened when compared with yesterday. Creatinine has bumped up from 1.6 to 1.9 today. She denies any edema. She continues to be on intravenous (IV) antibiotics. OBJECTIVE: VITAL SIGNS: Temperature 98.3 degrees Fahrenheit, blood pressure 135/59, pulse 98, respiratory rate 18, saturating 94% on room air. INTAKE AND OUTPUT: Urine output recorded as 1.7 liters yesterday, 450 mL so far today. Weight in the bed scale is not available. PHYSICAL EXAMINATION: GENERAL: Patient is awake, alert, oriented times three, morbidly obese, sitting up in the bed. HEAD AND NECK EXAM: Extraocular muscles intact. Pupils equally round and reactive to light. Mucous membranes are moist. Neck is supple. There is no jugular venous distention (JVD). CARDIOVASCULAR: S1, S2. Regular rate. There is trace edema on the bilateral lower extremities. RESPIRATORY: Chest is clear to auscultation bilaterally. Bilateral equal air entry. No rales or rhonchi. ABDOMEN: Soft, obese. Positive bowel sounds. Nontender. MUSCULOSKELETAL: She has bilateral lower extremity transmetatarsal amputation and she has dressings at this time. 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 Power is 5/5 in all extremities. LABORATORY DATA: CBC showed WBC 11, hemoglobin 10.4, platelets 687. BMP showed sodium 137, potassium 4.5, chloride 106, bicarbonate 24, BUN 31, creatinine 1.9, it was 1.6 yesterday, glucose 204. CURRENT INPATIENT MEDICATIONS: Patient's medications were all reviewed by myself. She is currently not on any diuretics. She continues to be on IV Zosyn for foot infection. No other significant change in the medication today. ASSESSMENT AND PLAN: 1. Acute renal failure superimposed on chronic kidney disease. Her renal function is slightly worse today compared with yesterday. I am going to check a repeat urinalysis. I am also going to check a bladder scan to make sure patient is not in urinary retention. Okay to continue antibiotics at this time. 2. Bilateral foot wounds and osteomyelitis of the left foot. Patient continues to be on IV Zosyn. There is a concern that Zosyn might be causing acute rise in the creatinine. I am going to check a repeat urinalysis for any proteinuria/hematuria. At this point, it is okay to continue Zosyn. 3. Hypertension. Blood pressure is controlled with the current dose of amlodipine, hydralazine. 4. Anemia in chronic kidney disease. Patient had low iron levels she is status post 3 units of packed red blood cells transfusion. Hemoglobin level is stable at 10.5
[2020-07-29] MEDS: NORCO, ANEXSIA 5/325MG TABLET (HYDROcodone/ACETAMINOPHEN) PO PRN (13:43)
[2020-07-29 14:00] VITALS: BP 132/58
[2020-07-29 17:03] LABS: APPEARANCE, URINE CLEAR (CLEAR); BACTERIA, URINE AUTO NEGATIVE (NEGATIVE); BILIRUBIN, URINE AUTO NEGATIVE (NEGATIVE); BLOOD, URINE BLOOD NEGATIVE (NEGATIVE); COLOR, URINE YELLOW (YELLOW); GLUCOSE, URINE (UA) AUTO 2+ mg/dL (NEGATIVE); KETONE, URINE AUTO NEGATIVE (NEGATIVE); LEUKOCYTE ESTERASE, URINE AUTO TRACE (NEGATIVE); NITRITE, URINE AUTO NEGATIVE (NEGATIVE); PROTEIN, URINE AUTO 2+ mg/dL (NEGATIVE); RBC, URINE AUTO 1 /HPF (0-3); SPECIFIC GRAVITY URINE AUTO 1.013 (1.002-1.035); SQUAMOUS EPITHELIAL CELL UR AU 0 /HPF (0-6); UROBILINOGEN, URINE AUTO 0.2 mg/dL (0.0-2.0); WBC, URINE AUTO 25 /HPF (0-3)
[2020-07-29 20:23] VITALS: BP 173/57
[2020-07-29] MEDS: ATORVASTATIN 20 MG TAB PO SCH (21:13)
[2020-07-29] MEDS: SODIUM CHLORIDE 0.9% INJ 10 ML SYR IV PRN (21:15)
[2020-07-30] MEDS: PIPERACILLIN/TAZOBACTAM SOD 2.25 GM in D5W MINI-BAG PLUS 50 ML IV SCH ×4 (03:06→22:02)
[2020-07-30] MEDS: SODIUM CHLORIDE 0.9% INJ 10 ML SYR IV SCH ×2 (03:07→17:48)
[2020-07-30] MEDS: **hydrALAZINE** 50 MG TAB PO SCH ×3 (05:05→22:03)
[2020-07-30 06:00] VITALS: BP 169/60
[2020-07-30 06:50] LABS: BASO # 0.1 10^3/uL (0.0-0.2); BASO % 1.5 % (0.0-1.0); EOS # 0.4 10^3/uL (0.0-0.5); EOS % 4.3 % (0.0-3.0); HEMATOCRIT 32.8 % (36.0-47.0); LYMPH # 3.2 10^3/uL (1.5-5.0); LYMPH % 33.4 % (24.0-44.0); MEAN CORPUSCULAR HEMOGLOBIN 24.8 pg (27.0-33.0); MEAN CORPUSCULAR HGB CONC 30.5 g/dl (32.0-36.5); MEAN CORPUSCULAR VOLUME 81.4 fl (80.0-96.0); MONO # 0.7 10^3/uL (0.0-0.8); MONO % 7.3 % (0.0-5.0); NEUTROPHILS % 52.2 % (36.0-66.0); PLATELET COUNT, AUTOMATED 702 10^3/uL (150-450); RED BLOOD COUNT 4.03 10^6/uL (4.00-5.40); WHITE BLOOD COUNT 9.5 10^3/uL (4.0-10.0)
[2020-07-30 07:02] LABS: C REACTIVE PROTEIN QUANTITATIV 1.65 MG/DL (0.00-0.30); CREATININE FOR GFR 1.74 MG/DL (0.55-1.30); GLOMERULAR FILTRATION RATE 32.6 (>51); POTASSIUM SERUM 4.8 MEQ/L (3.5-5.1)
--- NOTE | 2020-07-30 07:43 | IPNPDOC ---
Text Note Date of Service The patient was seen on 07/30/20. NOTE SUBJECTIVE: Feeling good today. No complaints, no overnight events. No SOB or cough. Post void Bladder scan showed only 84 cc. PHYSICAL EXAMINATION: VITAL SIGNS: see below GENERAL APPEARANCE: sitting at the side of bed, alert oriented x 3 in no acute distress. HEENT: NC, AT, moist mucous membranes, anicteric eyes. CARDIOVASCULAR: S1S2 RRR , No rub or murmur or gallop LUNGS: Bilateral diminished air entry, clear to auscultation. ABDOMEN: obese soft nt nd +bs no hsm no rebound or guarding EXTREMITIES: left arm picc line b/l transmetatarsal amputation . right Stump he aled, ulcer closed with granulation tissue. Left stump with deep open wound T shaped , Planter wound about 10 cm then extending up to the dorsum about 8 cm. Deep with some adherent fibrin at the base. fresh blood and granulation tissues. SKIN: no maculopapular erythematous rash LABS and Radiology: reviewed IMAGIN07/17/20 XRAY LEFT FOOT Diffuse soft tissue swelling. There is soft tissue emphysema in the swollen medial soft tissues at midfoot level. A 2 cm focal soft tissue ulcer is seen along the plantar aspect. Patient is status post transmetatarsal forefoot amputation. Osteoarthritic changes are noted. No acute erosive changes are seen. No opaque foreign body noted.. MRI LEFT FOOT 07/17/20 1. Status post amputation of the 1st through 5th toes at the mid metatarsals. 2. Abnormal marrow space signal demonstrated in the distal 2nd and 3rd metatarsals with abnormal enhancement on post gadolinium imaging consistent with osteomyelitis. 3. Fluid demonstrated in the tendon sheath of the tibialis posterior tendon consistent with synovitis. Tendon appears intrinsically unremarkable. 4. Diffuse enhancement of the intrinsic muscles of the foot, findings which can be seen in association with myositis. 5. Diffuse soft tissue edema with a focal abscess demonstrated on the plantar aspect of the foot. 6. Synovitis demonstrated in the tendon sheath of the flexor hallucis longus and tibialis posterior tendon. PROCEDURES: 07/17/20 POSTOPERATIVE DIAGNOSIS: Deep abscess formation, possible osteomyelitis plantar surface left foot. PROCEDURE: Incision and drainage multiple abscesses plantar surface left foot. SURGEON: Justin Mon DPM ASSESSMENT and PLAN: 55 y/o F w pmh DM, neuropathy, Morbid obesity, chronic plantar ulcers, OM s/p b/l transmetatarsal amputations, HTN,dyslipidemia, bipolar, MRSA carrier, chronic osteo right foot and ankle was seen by ID Dr. Thomas on 07/16/20 and found to have increasing bloody and malodorous drainage out of the left plantar foot ulcer with fever 101, started on levaquin. Blood work and wound cultures were taken in the office, and pt was sent to ER for admission for sepsis, left foot diabetic infection , osteomyelitis. Now S/p I&D of the left foot by Dr Mon. Hospital course was complicated by anemia requiring 2 units of PRBC and contrast nephropathy causing MONIQUE. Developed fluid overload in hospital responded to lasix. Left distal 2nd and 3rd metatarsal osteomyelitis/ left plantar foot abscess 1.8x1.8 x 2.1 cm left foot myositis/ flexor hallucis longus and tibialis posterior tendon synovitis Multiple organisms as well as anaerobic organisms. on iv Zosyn No MRSA in cultures s/p incision and debridement by dr mon x2 Dr Gary plans to do an arteriogram outpatient in about 2 weeks once renal functions improve a bit. Had telemedicine consult with Dr Thomas on 07/27/20. Final antibiotic recommendation : Zosyn continuous infusion 9 gms / day for 6 weeks starting from 07/17/20. Dr Gil is looking into getting the continuos infusion part whether it can be done or not. Other denny it is going to be Q6 hours. will go to [facility] on 07/31/20. H/o MSSA and group B Strep osteomyelitis of the right foot. The patient was on Dicloxacillin for over three months, that is healing well. Closed with granulation tissue. Hypoxia Resolved. due to fluid overload, improved with lasix. Last echo was in 2014 did have some suggestion of diastolic dysfunction. New echo done , report pending. Anemia s/p 2u rbc transfusion due to chronic disease, phlebotomy and probable iron def. MONIQUE on CKD Multifactorial. probably due to vanco toxicity on the back ground of ibuprofen and ACEI and sepsis Creatinine has stabilized around the 1.7 range DM2 w neuropathy consistent carbs fingersticks q achs w coverage cymbalta. 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 VS,Fishbone, I+O VS, Fishbone, I+O Laboratory Tests 07/30/20 06:27 Vital Signs Date Time Temp Pulse Resp B/P (MAP) Pulse Ox O2 Delivery O2 Flow Rate FiO2 07/30/20 06:00 97.4 86 18 169/60 (96) 96 Room Air 07/26/20 21:00 I&O- Last 24 Hours up to 6 AM 07/30/20 07:00 Intake Total 1680 ml Output Total 1150 ml Balance 530 ml GLORIA FRAGA MD Jul 30, 2020 07:43
[2020-07-30] MEDS: HumaLOG INSULIN (NovoLOG) PER UNIT SC SCH ×4 (08:24→21:00)
[2020-07-30] MEDS: ENOXAPARIN 40MG/0.4ML SYRINGE (J1650 PER 10MG) SC SCH (08:24)
[2020-07-30] MEDS: LEVEMIR (INSULIN DETEMIR) 1 UNITS/0.01ML SC SCH ×2 (08:24→22:01)
[2020-07-30] MEDS: CETIRIZINE (ZyrTEC) 10 MG TAB PO SCH (08:25)
[2020-07-30] MEDS: DULoxetine 30 MG CAP (CYMBALTA) PO SCH (08:25)
[2020-07-30] MEDS: ASPIRIN 81 MG ENTERIC TAB PO SCH (08:25)
[2020-07-30] MEDS: GABAPENTIN 300 MG CAP PO SCH ×3 (08:25→22:02)
[2020-07-30] MEDS: MONTELUKAST 10 MG TAB PO SCH (08:25)
[2020-07-30] MEDS: amLODIPine 10 MG TAB PO SCH (08:26)
[2020-07-30] MEDS: NORCO, ANEXSIA 5/325MG TABLET (HYDROcodone/ACETAMINOPHEN) PO PRN ×2 (08:34→17:51)
[2020-07-30 08:44] LABS: ERYTHROCYTE SEDIMENTATION RATE > 140 mm/hr (0-30)
--- NOTE | 2020-07-30 09:36 | ECHO ---
DATE OF PROCEDURE: 07/27/2020 Age: 55 Gender: Female REFERRING PHYSICIAN: Dr. Dora Potter PATIENT LOCATION: Room 5131. REASON FOR STUDY: Congestive heart failure. 2D MEASUREMENTS: IVS 1.0 cm LV 5.7 cm LVPW 0.8 cm LA 3.8 cm Aorta 2.7 cm RV 3.5 cm IVC 1.8 cm DOPPLER MEASUREMENT Peak velocity across the aortic valve 1.7 msec Peak velocity across the LVOT 1.3 msec Peak gradient across the aortic valve 12 mmHg Mean gradient across the aortic valve 6 mmHG Mitral E 1.1 Mitral A 0.8 with a ratio of 1.4. 2D COMMENTS: 1. Mildly enlarged left ventricle with normal left ventricular wall thickness. Left ventricular systolic function is normal, estimated at 60%-65%. 2. Normal left atrium. Normal right atrium and right ventricle. 3. The atrial septum appeared to be normal without evidence of defect or shunt. 4. Normal aortic root. 5. A trace pericardial effusion was noted. No evidence of cardiac tamponade. No effusion was noted in limited views. 6. Mildly calcified aortic valve with normal leaflet excursion. Normal mitral valve and tricuspid valve. The pulmonic valve and proximal pulmonary artery branches were not well visualized. 7. The inferior vena cava was normal in size. Central venous pressure is most likely normal. DOPPLER: It detects trace mitral regurgitation. Assessment of the left ventricular diastolic function was not conclusive. IMPRESSION: 1. Normal global left ventricular systolic function with a mildly enlarged left ventricle. Assessment of the left ventricular diastolic function was not conclusive. 2. Aortic valve sclerosis with trivial aortic stenosis but no aortic regurgitation. 3. Trace mitral regurgitation.. 4. A trace pericardial effusion. No effusion also noted. [facility]
--- NOTE | 2020-07-30 11:39 | IPN ---
PROGRESS NOTE DATE: 07/30/2020 SUBJECTIVE: The patient was seen and examined at the bedside today morning. She is afebrile, hemodynamically stable. Bedside bladder scan was done yesterday which did not show any evidence of urinary retention. Renal function is slightly better today. Creatinine has improved to 1.7 today. OBJECTIVE: VITAL SIGNS: Temperature is 97.4 degrees Fahrenheit, blood pressure is 169/60, pulse is 86, respiratory rate of 16, saturating 96% on room air. INTAKE AND OUTPUT: Urine output recorded as 1 liter yesterday, 550 ml so far today since overnight. Weight on the bed scale is not available. PHYSICAL EXAMINATION: GENERAL: Patient is awake, alert and oriented x3, morbidly obese, laying in bed, in no apparent distress. HEAD AND NECK: Extraocular muscles intact. Pupils equally round and reactive to light. Mucous membranes are moist. Neck is supple. There is no JVD. CARDIOVASCULAR: S1 and S2, regular rate. Trace edema of the bilateral lower extremities. RESPIRATORY: Chest is clear to auscultation bilaterally. Bilateral equal air entry. No rales or rhonchi. ABDOMEN: Soft, obese, positive bowel sounds. Nontender. No organomegaly. GENITOURINARY: Bladder is not palpable. MUSCULOSKELETAL: She has a dressing on the bilateral feet ulcers. BUSINESS LEADER: No focal deficit. Power is 5/5 in all extremities. LABORATORY DATA: CBC showed a WBC of 9.5, hemoglobin 10, platelets are 702,000. BMP showed a sodium of 138, potassium 4.8, chloride 106, bicarbonate 23, BUN 31, creatinine is 1.7, it was 1.9 yesterday. CURRENT INPATIENT MEDICATIONS: The patient's medications were all reviewed by myself. She is currently getting IV Zosyn 2.25 grams q. 6 hourly. No other significant change in the medications today as compared with yesterday. ASSESSMENT AND PLAN: 1. Acute renal failure superimposed on chronic kidney disease. It is multifactorial. The patient developed acute renal failure on July 18 and that is when she was on Vancomycin, Losartan, Gentamicin. She got a dose of IV __ and currently she is on penicillin. It is multifactorial MONIQUE. There is the possibility of interstitial nephritis but the patient has polymicrobial foot infection. At this time, I would like to continue the single antibiotic that covers all of her infection. I would continue to closely monitor. Creatinine has been fluctuating between 1.6 to 1.7 now. 2. Bilateral foot wounds and osteomyelitis of the left foot. As mentioned above, continue current dose of IV Zosyn which is optimal for her renal function. She will need to finish six weeks of IV antibiotics. She will need to closely follow-up with Nephrology as an outpatient. 3. Hypertension. Continue current dose of amlodipine and hydralazine, avoid TANIA and ARBs are this time because of acute kidney injury. 4. Iron deficiency anemia, status post PRBC transfusion. Hemoglobin is stable at 10. 5. Diabetes mellitus Type 2, insulin dependent. Continue current dose of insulin regimen. 6. Glucose levels are within the acceptable range.
[2020-07-30 14:00] VITALS: BP 156/60
[2020-07-30 21:30] VITALS: BP 152/61
[2020-07-30] MEDS: ATORVASTATIN 20 MG TAB PO SCH (22:03)
[2020-07-31] MEDS: PIPERACILLIN/TAZOBACTAM SOD 2.25 GM in D5W MINI-BAG PLUS 50 ML IV SCH ×2 (03:31→08:26)
[2020-07-31] MEDS: NORCO, ANEXSIA 5/325MG TABLET (HYDROcodone/ACETAMINOPHEN) PO PRN ×2 (03:32→12:54)
[2020-07-31] MEDS: **hydrALAZINE** 50 MG TAB PO SCH (05:36)
[2020-07-31] MEDS: SODIUM CHLORIDE 0.9% INJ 10 ML SYR IV SCH (05:45)
[2020-07-31 06:00] VITALS: BP 149/65
[2020-07-31 06:20] LABS: BASO # 0.1 10^3/uL (0.0-0.2); BASO % 1.3 % (0.0-1.0); EOS # 0.4 10^3/uL (0.0-0.5); HEMATOCRIT 34.1 % (36.0-47.0); HEMOGLOBIN 10.1 g/dl (12.0-15.5); LYMPH # 3.3 10^3/uL (1.5-5.0); LYMPH % 36.1 % (24.0-44.0); MEAN CORPUSCULAR HEMOGLOBIN 24.3 pg (27.0-33.0); MEAN CORPUSCULAR HGB CONC 29.6 g/dl (32.0-36.5); MEAN CORPUSCULAR VOLUME 82.2 fl (80.0-96.0); MONO # 0.7 10^3/uL (0.0-0.8); MONO % 7.4 % (0.0-5.0); NEUTROPHILS # 4.6 10^3/uL (1.5-8.5); NEUTROPHILS % 50.5 % (36.0-66.0); PLATELET COUNT, AUTOMATED 700 10^3/uL (150-450); RED BLOOD COUNT 4.15 10^6/uL (4.00-5.40); WHITE BLOOD COUNT 9.1 10^3/uL (4.0-10.0)
[2020-07-31 06:32] LABS: CALCIUM LEVEL 9.1 MG/DL (8.5-10.1); CREATININE FOR GFR 1.69 MG/DL (0.55-1.30); GLOMERULAR FILTRATION RATE 33.7 (>51); POTASSIUM SERUM 4.4 MEQ/L (3.5-5.1)
[2020-07-31] MEDS ORDERED: ZOSY1SOL4 IV ×2 (08:03→10:46)
[2020-07-31] MEDS: DULoxetine 30 MG CAP (CYMBALTA) PO SCH (08:24)
[2020-07-31] MEDS: LEVEMIR (INSULIN DETEMIR) 1 UNITS/0.01ML SC SCH (08:24)
[2020-07-31] MEDS: HumaLOG INSULIN (NovoLOG) PER UNIT SC SCH ×2 (08:24→12:48)
[2020-07-31 08:25] VITALS: BP 149/65
[2020-07-31] MEDS: GABAPENTIN 300 MG CAP PO SCH (08:25)
[2020-07-31] MEDS: ASPIRIN 81 MG ENTERIC TAB PO SCH (08:25)
[2020-07-31] MEDS: CETIRIZINE (ZyrTEC) 10 MG TAB PO SCH (08:25)
[2020-07-31] MEDS: amLODIPine 10 MG TAB PO SCH (08:25)
[2020-07-31] MEDS: MONTELUKAST 10 MG TAB PO SCH (08:25)
[2020-07-31] MEDS: ENOXAPARIN 40MG/0.4ML SYRINGE (J1650 PER 10MG) SC SCH (08:26)
--- NOTE | 2020-07-31 08:43 | DSES ---
DISCHARGE SUMMARY DATE OF ADMISSION: 07/17/2020 DATE OF DISCHARGE: 07/31/2020 PRINCIPAL DIAGNOSES: 1. Sepsis. 2. Diabetic osteomyelitis. 3. Foot ulcer, left foot. HISTORY: Iliana Goetz is being discharged today to [facility]. I did not participate in her care during her hospitalization, but she is being discharged today. She was admitted with sepsis, had osteomyelitis of a left foot ulcer, ultimately underwent transmetatarsal forefoot amputation by Dr. Alicea. She is on Zosyn 9 grams a day via continuous infusion for six weeks starting July 17, 2020. Had Telemedicine consultation from Dr. Thomas from infectious disease on July 27, 2020. She had anemia related to chronic inflammation/chronic kidney disease, underwent 2 units of packed red blood cell transfusion. She had acute on chronic kidney disease, probably from vancomycin toxicity and a background of ibuprofen and TANIA inhibitor dosing and was followed by nephrology, with creatinine stabilizing around 1.7. She has peripheral arterial disease. Dr. Canas plans an arteriogram as an outpatient in about two weeks, once renal function has improved. She had hypertension, which was managed with amlodipine and hydralazine, and hyperlipidemia, for which she was on statin therapy. On the day of discharge, she is eager to go home. She is resting comfortably. Vital signs are stable. She is afebrile. Lungs are clear. Heart regular rate and rhythm. Abdomen soft, obese, nontender. Trace peripheral edema. Wound is dressed. LABORATORY DATA: White count 9.1, hemoglobin 10.1, platelets 700. Sodium 139, potassium 4.4, BUN 33, creatinine 1.7, glucose 170. Two negative COVID tests, on July 17, 2020 and July 24, 2020. Multiple wound cultures grew out multiple bacteria, which are in the permanent medical record. Renal ultrasound July 20, 2020 was normal. DISPOSITION: Plan is to discharge to [facility] once a bed is available. Activity is per podiatry. She is on consistent carbohydrate diet with no added salt. DISCHARGE MEDICATIONS: - amlodipine 10 mg daily - aspirin 81 mg daily - Tylenol as needed - atorvastatin 10 mg daily - cetirizine 10 mg daily - duloxetine 60 mg daily - Lovenox 40 mg subcutaneous daily - gabapentin 300 mg three times a day - hydralazine 50 mg every 8 hours - [place] 5/235 every 6 hours as needed for pain; one tablet for moderate pain, two for severe pain - hydroxyzine 25 mg every 6 hours for anxiety - detemir insulin 55 units twice a day - sliding scale insulin based on coverage scale - Singulair 10 mg daily - Zofran 4 mg as needed sublingual every 6 hours - Zosyn 2.25 grams IV every 6 hours, though hospitalist notes from yesterday indicate continuous infusion No pending labs at this time.
--- NOTE | 2020-07-31 09:18 | IPN ---
PROGRESS NOTE DATE: 07/30/2020 This is a telemedicine visit as I am in quarantine. SUBJECTIVE: The patient is doing very well. She denies any shortness of breath, no cough. No pain in her feet. She is going back to [facility] tomorrow. I did this visit with the presence of her nurse. PHYSICAL EXAMINATION: Vital signs: Temperature 97.9, pulse 82, respirations 18, blood pressure 156/60, O2 saturation 96% on room air. She has been afebrile for a week. She has bilateral transmetatarsal amputations. Right foot has good granulation tissue. Left foot has a very large incision with some fibrinous exudate. LABS: White count is 9.5, hemoglobin 10, hematocrit 32.8, platelets 702, 52% neutrophils, 33% lymphocytes, 7% monocytes. ESR more than 140. Sodium 138, potassium 4.8, chloride 106, bicarb 23, BUN 31, creatinine 1.74. Glucose 236, calcium 9, CRP 1.65 down from 31.8. Wound cultures from the left foot had group B strep, Strep gordonii, Enterococcus faecalis, and Veillonella parvula. Enterococcus faecalis was sensitive to ampicillin. Streptococcus gordonii intermediate to ampicillin and Streptococcus group B is sensitive and anaerobically sensitive. IMPRESSION: 1. Left foot abscess with acute osteomyelitis of second and third metatarsal on IV Zosyn, doing much better with decreased CRP from 35 to 1.6. 2. Chronic osteomyelitis of the right foot. The patient had received at least three months of dicloxacillin for MSSA and group B strep osteomyelitis, doing well, healing. 3. Fluid retention with fluid overload. Hypoxia has resolved. 4. Acute kidney injury on chronic kidney disease. Creatinine has improved and is down to 1.7. Her baseline on admission was 1.09. PLAN: Continue six weeks of IV antibiotic with Zosyn at the dose of 9 gm daily. If her kidney function improves, then she could be changed to a regular dose 3.375 gm every 6 hours for a total of 13.375 gm daily. She will receive a continuous infusion at [facility]. She needs to be monitored with a CBC basic, CRP, ESR weekly. I will see the patient in followup. FU meeting with nursing at [facility] in a couple of weeks. JACOB
[2020-07-31] MEDS: SODIUM CHLORIDE 0.9% INJ 10 ML SYR IV PRN (10:49)
[2020-07-31] MEDS ORDERED: FUROSEMIDE 40MG/4ML VIAL (J1940) IV ONE (12:00)
--- NOTE | 2020-07-31 21:47 | IPN ---
NEPHROLOGY PROGRESS NOTE DATE: 07/31/2020 SUBJECTIVE: Patient was seen and examined at the bedside today morning. She continues to be on I.V. antibiotics. Her renal function is stable and improving. Creatinine is down to 1.6. She reports mild lower extremity edema. OBJECTIVE: VITAL SIGNS: Temperature 97.1 degrees Fahrenheit, blood pressure 149/65, pulse 82, respiratory rate 18, saturating 97% on room air. INTAKE AND OUTPUT: Urine output recorded as 1.3 liters yesterday, 800 mL so far in the morning by the time I saw her. Weight in the bed scale is not available. PHYSICAL EXAMINATION: GENERAL: Patient is awake, alert and oriented x3, morbidly obese, sitting up in the bed. HEAD/NECK: Extraocular muscles intact. Pupils equally round and reactive to light. Mucous membranes are moist. Neck is supple. There is no JVD. CARDIOVASCULAR: S1, S2, regular rate. 1+ edema of the bilateral ankles. RESPIRATORY: Chest is clear to auscultation bilaterally. Bilateral equal air entry. No rales or rhonchi. ABDOMEN: Soft, obese, positive bowel sounds. MUSCULOSKELETAL: She has dressing on both feet and edema of the ankles is noted. LABORATORY REVIEW: CBC showed WBC 9.1, hemoglobin 10.1, platelets 700,000. BMP showed sodium 139, potassium 4.4, chloride 106, bicarb 27, BUN 33, creatinine 1.6; it was 1.7 yesterday. CURRENT INPATIENT MEDICATIONS: Patient's medications were all reviewed by myself. She is currently not on any diuretics. I gave her a dose of Lasix 40 mg I.V. times one dose. No other significant change in medications today as compared with yesterday. ASSESSMENT AND PLAN: 1. Acute renal failure superimposed on chronic kidney disease: Patient's renal function continues to improve. Creatinine is down to 1.6. Her best baseline creatinine is less than 1. She would need to follow-up with nephrology as an outpatient. At this point, her creatinine is trending in the right direction. 2. Lower extremity edema: Patient will be given one dose of I.V. Lasix today. The rest of the diuretic regimen will be optimized as an outpatient. 3. Chronic osteomyelitis of the right foot and left foot abscess with acute osteomyelitis: Patient is currently on I.V. Zosyn; dose is adequate for the renal function. She would need to follow-up with ID as an outpatient. DISPOSITION: Patient is optimized to be discharged from nephrology standpoint. She would need to follow-up with nephrology within one month after discharge from the hospital.
--- NOTE | 2020-08-01 11:14 | IPN ---
PROGRESS NOTE DATE: 07/27/2020 Ms. Goetz is seen this morning on her bedside. She is feeling about the same and denies any dyspnea or chest pain. She has diuresed very well, and lower extremity edema has improved. Bilateral foot wounds are covered with dressings. She is afebrile and remains on antibiotics. PHYSICAL EXAMINATION: Temperature 98 degrees Fahrenheit, heart rate 88 per minute, respiratory rate 18 per minute, blood pressure 162/73 mmHg, and oxygen saturation 95% on room air. Head is atraumatic. Neck supple, and jugular venous distention (JVD) not abnormal elevated. Heart sounds are regular and lungs sound clear to auscultation. Abdomen soft, and nontender, and bowel sounds are normal. Extremities without any cyanosis or clubbing. Both feet are wrapped in dressings. Neurologically, she is awake, alert, and oriented times three. Today's labs show WBC count 14.6 hemoglobin 10.8, and hematocrit 35.7. Sodium 138, potassium 4.9, CO2 of 25, BUN 26, and creatinine 1.75. Glucose 217 and calcium 9.2. PROBLEMS: 1. Acute kidney injury superimposed on chronic kidney disease. Kidney function seems to be leveled off without any significant waste/materials exchange specialist last few days. Her GFR is about 30 +/-2 mL per minute. Electrolytes are stable. 2. Hypervolemia. Her volume status has corrected and improved. At this point, I would hold off on further diuretic use. 3. Anemia. Her anemia is stable at present and does not need any urgent intervention. 4. Bilateral infected food wounds. The patient remains on Zosyn and is being followed by podiatry. There was a question for angiogram; however, it is currently on hold, and I have been told that Dr. Canas wants to do her angiogram later on as an outpatient. From a renal standpoint, she is stable.
== END 2020-07-31 13:30 | DRG 710 ==
LOC: M ED 14:49 → M ED INP 18:04 → M MS5PR 22:00
PROVIDERS: ADMIT General Practice; ATTEND Internal Medicine Nephrology
PROC: 0MDT0ZZ Extraction of Left Foot Bursa and Ligament, Open Approach (ICD-10-PCS; principal; 2020-07-17 19:30)
PROC: 30233N1 Transfusion of Nonautologous Red Blood Cells into Peripheral Vein, Percutaneous Approach (ICD-10-PCS; 2020-07-19)
PROC: 0J9R0ZZ Drainage of Left Foot Subcutaneous Tissue and Fascia, Open Approach (ICD-10-PCS; 2020-07-20)
PROC: 02HV33Z Insertion of Infusion Device into Superior Vena Cava, Percutaneous Approach (ICD-10-PCS; 2020-07-20)
DX: A41.9 Sepsis, unspecified organism (principal); E11.621 Type 2 diabetes mellitus with foot ulcer; E11.22 Type 2 diabetes mellitus with diabetic chronic kidney disease; E11.42 Type 2 diabetes mellitus with diabetic polyneuropathy; M86.172 Other acute osteomyelitis, left ankle and foot; N17.9 Acute kidney failure, unspecified; N18.30 Chronic kidney disease, stage 3 unspecified; E88.81 Metabolic syndrome and other insulin resistance; E11.51 Type 2 diabetes mellitus with diabetic peripheral angiopathy without gangrene; E11.69 Type 2 diabetes mellitus with other specified complication; L97.528 Non-pressure chronic ulcer of other part of left foot with other specified severity; E66.01 Morbid (severe) obesity due to excess calories; Z68.42 Body mass index [BMI] 45.0-49.9, adult; E87.1 Hypo-osmolality and hyponatremia; E83.42 Hypomagnesemia; E11.65 Type 2 diabetes mellitus with hyperglycemia; L97.518 Non-pressure chronic ulcer of other part of right foot with other specified severity; E87.5 Hyperkalemia; E87.70 Fluid overload, unspecified; F32.9 Major depressive disorder, single episode, unspecified; I12.9 Hypertensive chronic kidney disease with stage 1 through stage 4 chronic kidney disease, or unspecified chronic kidney disease; E78.5 Hyperlipidemia, unspecified; R09.02 Hypoxemia; F31.9 Bipolar disorder, unspecified; N14.2 Nephropathy induced by unspecified drug, medicament or biological substance; B95.1 Streptococcus, group B, as the cause of diseases classified elsewhere; B95.2 Enterococcus as the cause of diseases classified elsewhere; L29.9 Pruritus, unspecified; T50.8X5A Adverse effect of diagnostic agents, initial encounter; Z86.14 Personal history of Methicillin resistant Staphylococcus aureus infection; Z89.421 Acquired absence of other right toe(s); Z89.422 Acquired absence of other left toe(s); Z90.49 Acquired absence of other specified parts of digestive tract; Z20.822 Contact with and (suspected) exposure to COVID-19; Z79.82 Long term (current) use of aspirin; Z79.4 Long term (current) use of insulin; Z79.899 Other long term (current) drug therapy; Z88.1 Allergy status to other antibiotic agents; Z88.8 Allergy status to other drugs, medicaments and biological substances; D63.1 Anemia in chronic kidney disease

== ENCOUNTER → 2020-08-02 | Outpatient (REF) ==
[~2020-08-02] MED LIST changes: +ADME100I SC; +AMLO1TAB25 PO; +ASPI1TAB8 PO; +LEVO750T13 PO; +LEVOTAB10 PO; -LISI-538 PO; -LISI-542 PO; +LISI-898 PO; +LISI20TA33 PO; +LOSA100T50 PO; -MAG400TA PO; +MAGN400T35 PO; +SPIR-10 PO; +ZOSY1SOL4 IV
[2020-08-02 10:06] LABS: HEMOGLOBIN 10.6 g/dl (12.0-15.5); MEAN CORPUSCULAR HEMOGLOBIN 24.9 pg (27.0-33.0); MEAN CORPUSCULAR HGB CONC 30.3 g/dl (32.0-36.5); MEAN CORPUSCULAR VOLUME 82.4 fl (80.0-96.0); PLATELET COUNT, AUTOMATED 630 10^3/uL (150-450); RED BLOOD COUNT 4.25 10^6/uL (4.00-5.40); WHITE BLOOD COUNT 8.7 10^3/uL (4.0-10.0)
[2020-08-02 10:27] LABS: ERYTHROCYTE SEDIMENTATION RATE 89 mm/hr (0-30)
[2020-08-02 10:37] LABS: C REACTIVE PROTEIN QUANTITATIV 1.89 MG/DL (0.00-0.30); CALCIUM LEVEL 9.6 MG/DL (8.5-10.1); CREATININE FOR GFR 1.47 MG/DL (0.55-1.30); GLOMERULAR FILTRATION RATE 39.6 (>51); POTASSIUM SERUM 5.1 MEQ/L (3.5-5.1)
== END ==
PROVIDERS: ATTEND Internal Medicine
DX: M86.172 Other acute osteomyelitis, left ankle and foot (principal)

== ENCOUNTER → 2020-08-06 | Outpatient (REF) ==
[2020-08-06 10:08] LABS: CALCIUM LEVEL 9.7 MG/DL (8.5-10.1); CREATININE FOR GFR 1.28 MG/DL (0.55-1.30); GLOMERULAR FILTRATION RATE 46.4 (>51)
== END ==
PROVIDERS: ATTEND Internal Medicine
DX: M86.9 Osteomyelitis, unspecified (principal)

== ENCOUNTER → 2020-08-08 | Outpatient (REF) ==
[2020-08-08 09:41] LABS: HEMATOCRIT 34.6 % (36.0-47.0); HEMOGLOBIN 10.4 g/dl (12.0-15.5); MEAN CORPUSCULAR HEMOGLOBIN 24.9 pg (27.0-33.0); MEAN CORPUSCULAR HGB CONC 30.1 g/dl (32.0-36.5); PLATELET COUNT, AUTOMATED 420 10^3/uL (150-450); RED BLOOD COUNT 4.17 10^6/uL (4.00-5.40); WHITE BLOOD COUNT 7.2 10^3/uL (4.0-10.0)
[2020-08-08 10:28] LABS: C REACTIVE PROTEIN QUANTITATIV 0.81 MG/DL (0.00-0.30); CALCIUM LEVEL 9.5 MG/DL (8.5-10.1); CREATININE FOR GFR 1.25 MG/DL (0.55-1.30); GLOMERULAR FILTRATION RATE 47.7 (>51); POTASSIUM SERUM 4.9 MEQ/L (3.5-5.1)
[2020-08-08 13:09] LABS: ERYTHROCYTE SEDIMENTATION RATE 68 mm/hr (0-30)
== END ==
PROVIDERS: ATTEND Internal Medicine
DX: Z20.822 Contact with and (suspected) exposure to COVID-19 (principal)

== ENCOUNTER → 2020-08-13 | Outpatient (REF) ==
[2020-08-13 10:45] LABS: CALCIUM LEVEL 9.1 MG/DL (8.5-10.1); CREATININE FOR GFR 1.23 MG/DL (0.55-1.30); GLOMERULAR FILTRATION RATE 48.6 (>51); POTASSIUM SERUM 6.7 MEQ/L (3.5-5.1)
== END ==
PROVIDERS: ATTEND Internal Medicine
DX: N18.9 Chronic kidney disease, unspecified (principal); E87.5 Hyperkalemia

== ENCOUNTER → 2020-08-15 | Outpatient (REF) ==
[2020-08-15 11:32] LABS: HEMATOCRIT 33.7 % (36.0-47.0); HEMOGLOBIN 10.1 g/dl (12.0-15.5); MEAN CORPUSCULAR HEMOGLOBIN 24.3 pg (27.0-33.0); MEAN CORPUSCULAR VOLUME 81.2 fl (80.0-96.0); PLATELET COUNT, AUTOMATED 275 10^3/uL (150-450); RED BLOOD COUNT 4.15 10^6/uL (4.00-5.40); WHITE BLOOD COUNT 9.8 10^3/uL (4.0-10.0)
[2020-08-15 11:51] LABS: C REACTIVE PROTEIN QUANTITATIV 1.19 MG/DL (0.00-0.30); CALCIUM LEVEL 9.7 MG/DL (8.5-10.1); CREATININE FOR GFR 1.31 MG/DL (0.55-1.30); GLOMERULAR FILTRATION RATE 45.2 (>51); POTASSIUM SERUM 4.9 MEQ/L (3.5-5.1)
[2020-08-15 11:54] LABS: ERYTHROCYTE SEDIMENTATION RATE 66 mm/hr (0-30)
== END ==
PROVIDERS: ATTEND Internal Medicine
DX: M86.9 Osteomyelitis, unspecified (principal); Z20.822 Contact with and (suspected) exposure to COVID-19

== ENCOUNTER → 2020-08-20 | Outpatient (REF) ==
[2020-08-20 12:33] LABS: CREATININE FOR GFR 1.23 MG/DL (0.55-1.30); GLOMERULAR FILTRATION RATE 48.6 (>51); POTASSIUM SERUM 4.5 MEQ/L (3.5-5.1)
== END ==
PROVIDERS: ATTEND Internal Medicine
DX: N18.9 Chronic kidney disease, unspecified (principal)

== ENCOUNTER → 2020-08-22 | Outpatient (REF) | PROVIDERS: ATTEND Internal Medicine | DX: Z20.822 Contact with and (suspected) exposure to COVID-19 (principal) ==

== ENCOUNTER → 2020-08-22 | Outpatient (REF) ==
[2020-08-22 09:51] LABS: HEMATOCRIT 33.2 % (36.0-47.0); MEAN CORPUSCULAR HEMOGLOBIN 24.6 pg (27.0-33.0); MEAN CORPUSCULAR HGB CONC 30.1 g/dl (32.0-36.5); MEAN CORPUSCULAR VOLUME 81.8 fl (80.0-96.0); PLATELET COUNT, AUTOMATED 325 10^3/uL (150-450); RED BLOOD COUNT 4.06 10^6/uL (4.00-5.40)
[2020-08-22 10:10] LABS: C REACTIVE PROTEIN QUANTITATIV 1.84 MG/DL (0.00-0.30); CALCIUM LEVEL 9.3 MG/DL (8.5-10.1); CREATININE FOR GFR 1.16 MG/DL (0.55-1.30); POTASSIUM SERUM 4.7 MEQ/L (3.5-5.1)
[2020-08-22 10:11] LABS: ERYTHROCYTE SEDIMENTATION RATE 65 mm/hr (0-30)
== END ==
PROVIDERS: ATTEND Internal Medicine
DX: M86.172 Other acute osteomyelitis, left ankle and foot (principal)

== ENCOUNTER → 2020-08-27 | Outpatient (REF) ==
[~2020-08-27] MED LIST changes: +DEXT4TAB2 PO; -GLUC4CHW19 PO; -PEG1POW PO; +POLY17PO18 PO
[2020-08-27 09:42] LABS: BLOOD UREA NITROGEN 33 MG/DL (7-18); CALCIUM LEVEL 9.3 MG/DL (8.5-10.1); CARBON DIOXIDE LEVEL 25 MEQ/L (21-32); CHLORIDE LEVEL 111 MEQ/L (98-107); CREATININE FOR GFR 1.01 MG/DL (0.55-1.30); GLOMERULAR FILTRATION RATE > 60.0 (>51); GLUCOSE, FASTING 93 MG/DL (70-100); POTASSIUM SERUM 4.3 MEQ/L (3.5-5.1); SODIUM LEVEL 142 MEQ/L (136-145)
[2020-08-27 10:18] LABS: HEMOGLOBIN A1c 8.2 %
== END ==
PROVIDERS: ATTEND Physician Assistant
DX: N18.9 Chronic kidney disease, unspecified (principal)

== ENCOUNTER → 2020-08-29 | Outpatient (REF) ==
[~2020-08-29] MED LIST changes: +BISO5TAB14 PO; +JUVEPOW4 PO
[2020-08-29 10:15] LABS: HEMATOCRIT 34.7 % (36.0-47.0); HEMOGLOBIN 10.6 g/dl (12.0-15.5); MEAN CORPUSCULAR HEMOGLOBIN 25.4 pg (27.0-33.0); MEAN CORPUSCULAR HGB CONC 30.5 g/dl (32.0-36.5); PLATELET COUNT, AUTOMATED 398 10^3/uL (150-450); RED BLOOD COUNT 4.18 10^6/uL (4.00-5.40); WHITE BLOOD COUNT 10.1 10^3/uL (4.0-10.0)
[2020-08-29 10:40] LABS: C REACTIVE PROTEIN QUANTITATIV 1.55 MG/DL (0.00-0.30); CALCIUM LEVEL 9.1 MG/DL (8.5-10.1); CREATININE FOR GFR 1.15 MG/DL (0.55-1.30); GLOMERULAR FILTRATION RATE 52.5 (>51); POTASSIUM SERUM 4.9 MEQ/L (3.5-5.1)
[2020-08-29 11:03] LABS: ERYTHROCYTE SEDIMENTATION RATE 60 mm/hr (0-30)
== END ==
PROVIDERS: ATTEND Internal Medicine
DX: M86.9 Osteomyelitis, unspecified (principal); Z20.822 Contact with and (suspected) exposure to COVID-19

== ENCOUNTER → 2020-08-30 | Outpatient (CLI) | payer OTHER ==
[~2020-08-30] MED LIST changes: +DEXTROSE 50% 50 ML SYRINGE As Ordered ONE; +ISOVUE-300 61% 50ML VIAL As Ordered ONE; +LIDOCAINE 1% MDV 20ML VIAL As Ordered ONE; +MIDAZOLAM INJ 2MG/2ML VIAL (J2250 PER 1MG) As Ordered ONE; +diphenhydrAMINE 50MG/ML VIAL (J1200) As Ordered ONE; +fentaNYL 100 MCG/2 ML INJECTION (J3010) As Ordered ONE
--- NOTE | 2020-08-30 08:23 | IRHP ---
[facility] IR Pre-Procedure H & P General Date of Service: Aug 30, 2020 Procedure: Same Day Surgery Interval History and Physical I have seen the patient and reviewed last H & P performed within 30 days. There is no significant interval change. History of Present Illness Chief Complaint The patient is a 55-year-old female admitted with a reason for visit of PAD. PRE-PROCEDURE DIAGNOSIS: PAD HEART: Normal rate. LUNGS: Normal breathing at rest. ASA Classification ASA Classification: III-Severe systemic dis. Mallampati Score: II NPO: Yes Problems with prior sedation: No Obstructive Sleep Apnea: Yes Plan moderate sedation Allergies Coded Allergies: cefazolin (Verified Allergy, Intermediate, hives, 11/23/19) HAS HAD CEFTRIAXONE IN THE PAST fluoxetine (Verified Allergy, Intermediate, hives, 11/23/19) pseudoephedrine (Verified Allergy, Intermediate, hives, 11/23/19) trazodone (Verified Allergy, Intermediate, hives, 11/23/19) Home Medications Scheduled Amlodipine Besylate (Amlodipine Besylate), 10 MG PO DAILY, (Reported) Aspirin (Aspirin EC), 81 MG PO DAILY, (Reported) Atorvastatin Calcium (Atorvastatin Calcium), 40 MG PO QHS, (Reported) Bisoprolol Fumarate (Bisoprolol Fumarate), 1 TAB PO DAILY, (Reported) Duloxetine HCl (Duloxetine HCl), 60 MG PO DAILY, (Reported) Gabapentin (Gabapentin), 300 MG PO TID, (Reported) Insulin Glargine,Hum.rec.anlog (Basaglar Kwikpen U-100), 55 UNIT SC BID, (Reported) Insulin Lispro (Admelog), 1 DOSE SC AC, (Reported) Levocetirizine Dihydrochloride (Levocetirizine Dihydrochloride), 5 MG PO QHS, ( Reported) Miscellaneous Medications Arginine/Glutamine/Calcium Bmb (Miguel Packet), 1 POW PO, (Reported) Discontinued Medications [id number]-Nelnumox,Iso (Zosyn 2.25 gm/50 ml Galaxy Bag), 1 ANNE MARIE IV Q8H Discontinued Reason: Pt states not taking VS, I&O, 24H, Fishbone Vital Signs/I&O Vital Signs Date Time Temp Pulse Resp B/P (MAP) Pulse Ox O2 Delivery O2 Flow Rate FiO2 08/30/20 07:25 98.3 60 16 99 Room Air BERENICE SHAVER MD Aug 30, 2020 08:23
[2020-08-30 13:30] VITALS: BP 156/78
--- NOTE | 2020-08-30 15:18 | POST-OPPD ---
Postoperative Procedure Note Date Of Procedure: Aug 30, 2020 Time Of Procedure: 15:05 IR Left leg angiogram IR Left below-knee runoff arteriogram. IR Ultrasound-guided right common femoral artery access. IR Moderate sedation. Clinical Information:Nonhealing left lower extremity wounds. Physician: Dr. Hernandez. Procedure: The patient was advised of the benefits, risks, and alternatives of the procedure and informed consent was obtained. A time out was performed with verification of the patient's name, MRN, site of procedure, and type of procedure to be performed. The patient was positioned in the supine position on the angiographic table. The site was prepped and draped in the usual sterile fashion. Moderate sedation was performed by the physician including the presence of an independent trained RN, who assisted in monitoring the patient's level of consciousness and physiological status. Following the administration of fenta nyl and Versed, the physician spent 60 minutes of continuous xkes-na-oafq time with the patient. A tobacco baler radiograph reveals no gross abnormality. Ultrasound of the right groin demonstrates patent right common femoral artery. Lidocaine was used for local anesthesia. The right common femoral artery was accessed, under ultrasound guidance with a microintroducer set. A short 0.018" Crete wire was inserted and the needle was exchanged for a 4 Fr microintroducer sheath. The guidewire and dilator were removed and a 0.035" Bentson wire was advanced under fluoroscopic guidance and placed into the abdominal aorta. A 6 Fr sheath was placed over the wire. An Omni Flush catheter was advanced over the wire, under fluoroscopy guidance and used to catheterize the abdominal aorta. A pelvic arteriogram was performed and this demonstrates unremarkable infrarenal abdominal aorta. Patent bilateral common iliac, internal and external iliac arteries. The catheter in conjunction with the wire was used under fluoroscopy guidance to gain up and over access into the left common iliac artery. The catheter was exchanged over the wire for a Glidecath. The Glidecath and wire were used under fluoroscopic guidance to catheterize the left common femoral artery. A left leg angiogram was performed and this demonstrates patent left common femoral artery, superficial femoral artery and profunda femoris. Focal kinking in the proximal SFA with no impedance to flow. Angiography further down the left leg was performed and this demonstrates patent mid and distal superficial femoral artery. Patent popliteal artery. A below knee run off arteriogram was performed and this demonstrates patent anterior tibial, posterior tibial and peroneal artery. Runoff arteriogram to the left foot demonstrates patent anterior tibial, posterior tibial and peroneal artery. Dorsalis pedis branches demonstrate microvascular disease. There is 3 vessel runoff to the left foot. The catheter, wire and sheath were removed. A Mynx device was used to close the arteriotomy. Pressure held and hemostasis achieved. A sterile dressing was applied to the site. The patient tolerated the procedure well and was returned to the PRU in stable condition. EBL: < 5 mL. Complications:None. Impression: 1. Left leg angiogram demonstrates patent inflow and outflow. No dynamically significant stenosis or occlusion. 2. Patent 3 vessel runoff to the left foot. 3. Patient will be brought back for right lower extremity angiography. Thank you for this referral. Cc BERENICE Vincent MD Aug 30, 2020 15:18
== END ==
LOC: M IRPRO 07:17
PROVIDERS: ATTEND Radiology Diagnostic Radiology
DX: L97.829 Non-pressure chronic ulcer of other part of left lower leg with unspecified severity (principal); Z79.82 Long term (current) use of aspirin; Z79.899 Other long term (current) drug therapy; Z88.8 Allergy status to other drugs, medicaments and biological substances
CPT/HCPCS: 36246; 99152; 99153; C1760; C1769; C1887; C1894; G0269; J1642; J1644; J2250; J3010; Q9967

== ENCOUNTER → 2020-09-03 | Outpatient (REF) ==
[~2020-09-03] MED LIST changes: -DEXTROSE 50% 50 ML SYRINGE As Ordered ONE; -ISOVUE-300 61% 50ML VIAL As Ordered ONE; -LIDOCAINE 1% MDV 20ML VIAL As Ordered ONE; -MIDAZOLAM INJ 2MG/2ML VIAL (J2250 PER 1MG) As Ordered ONE; -diphenhydrAMINE 50MG/ML VIAL (J1200) As Ordered ONE; -fentaNYL 100 MCG/2 ML INJECTION (J3010) As Ordered ONE
[2020-09-03 09:40] LABS: BLOOD UREA NITROGEN 38 MG/DL (7-18); CALCIUM LEVEL 9.6 MG/DL (8.5-10.1); CARBON DIOXIDE LEVEL 25 MEQ/L (21-32); CHLORIDE LEVEL 111 MEQ/L (98-107); CREATININE FOR GFR 0.98 MG/DL (0.55-1.30); GLOMERULAR FILTRATION RATE > 60.0 (>51); GLUCOSE, FASTING 102 MG/DL (70-100); POTASSIUM SERUM 4.6 MEQ/L (3.5-5.1); SODIUM LEVEL 142 MEQ/L (136-145)
== END ==
PROVIDERS: ATTEND Internal Medicine
DX: N18.9 Chronic kidney disease, unspecified (principal)

== ENCOUNTER → 2020-09-05 | Outpatient (REF) ==
[2020-09-05 12:40] LABS: C REACTIVE PROTEIN QUANTITATIV 1.68 MG/DL (0.00-0.30); CALCIUM LEVEL 8.7 MG/DL (8.5-10.1); CREATININE FOR GFR 1.05 MG/DL (0.55-1.30); GLOMERULAR FILTRATION RATE 58.4 (>51); POTASSIUM SERUM 4.6 MEQ/L (3.5-5.1)
[2020-09-05 12:45] LABS: ERYTHROCYTE SEDIMENTATION RATE 58 mm/hr (0-30)
[2020-09-05 12:57] LABS: HEMATOCRIT 33.6 % (36.0-47.0); HEMOGLOBIN 10.4 g/dl (12.0-15.5); MEAN CORPUSCULAR HEMOGLOBIN 24.9 pg (27.0-33.0); MEAN CORPUSCULAR VOLUME 80.6 fl (80.0-96.0); PLATELET COUNT, AUTOMATED 388 10^3/uL (150-450); RED BLOOD COUNT 4.17 10^6/uL (4.00-5.40); WHITE BLOOD COUNT 10.8 10^3/uL (4.0-10.0)
== END ==
PROVIDERS: ATTEND Internal Medicine
DX: M86.172 Other acute osteomyelitis, left ankle and foot (principal); Z20.822 Contact with and (suspected) exposure to COVID-19

== ENCOUNTER → 2020-09-25 | Outpatient (POV) | payer OTHER ==
--- NOTE | 2020-09-28 11:00 | IRPN ---
[facility] IR Progress Note IR Progress Note DATE: Sep 25, 2020 Patient agreed to this telephone follow up. I spent 10 minutes talking to the patient. FOLLOW-UP: Status post left lower extremity angiogram for non healing ulcers. Angiogram demonstrated no significant arterial blockage to the left lower extremity. Patient reports no issues at the access site, denies pain, swelling or mass at access site. Patient states her ulcers are healing and and her right lower extremity is also better now. She would like to hold off on right leg angiogram. She does have bilateral lower extremity swelling and not had any venous reflux study performed. ON EXAMINATION: No video on patient side. IMPRESSION: Patient with bilateral lower extremity non healing ulcers status post negative left leg angiogram. She would like to hold off on right leg intervention at present. I will get a bilateral lower extremity venous reflux study to see if venous HTN maybe contributing to the wounds. Follow up in IR in 6 months. Thank you for this referral Allergies Coded Allergies: cefazolin (Verified Allergy, Intermediate, hives, 11/23/19) HAS HAD CEFTRIAXONE IN THE PAST fluoxetine (Verified Allergy, Intermediate, hives, 11/23/19) pseudoephedrine (Verified Allergy, Intermediate, hives, 11/23/19) trazodone (Verified Allergy, Intermediate, hives, 11/23/19) BERENICE SHAVER MD Sep 28, 2020 11:00
== END ==
LOC: M TMIRPOV 08:50
PROVIDERS: ATTEND Radiology Diagnostic Radiology
DX: L97.919 Non-pressure chronic ulcer of unspecified part of right lower leg with unspecified severity (principal); L97.929 Non-pressure chronic ulcer of unspecified part of left lower leg with unspecified severity; Z88.8 Allergy status to other drugs, medicaments and biological substances

== ENCOUNTER → 2020-10-02 | Outpatient (CLI) | payer OTHER ==
[2020-10-02 12:31] LABS: BASO # 0.1 10^3/uL (0.0-0.2); BASO % 0.9 % (0.0-1.0); EOS # 0.3 10^3/uL (0.0-0.5); EOS % 2.2 % (0.0-3.0); HEMATOCRIT 36.4 % (36.0-47.0); HEMOGLOBIN 11.4 g/dl (12.0-15.5); LYMPH # 3.6 10^3/uL (1.5-5.0); MEAN CORPUSCULAR HEMOGLOBIN 25.1 pg (27.0-33.0); MEAN CORPUSCULAR HGB CONC 31.3 g/dl (32.0-36.5); MONO # 0.9 10^3/uL (0.0-0.8); MONO % 7.6 % (2.0-8.0); NEUTROPHILS # 6.6 10^3/uL (1.5-8.5); NEUTROPHILS % 56.2 % (36.0-66.0); PLATELET COUNT, AUTOMATED 435 10^3/uL (150-450); RED BLOOD COUNT 4.55 10^6/uL (4.00-5.40); WHITE BLOOD COUNT 11.7 10^3/uL (4.0-10.0)
[2020-10-02 12:53] LABS: ERYTHROCYTE SEDIMENTATION RATE 89 mm/hr (0-30)
[2020-10-02 13:00] LABS: BLOOD UREA NITROGEN 15 MG/DL (7-18); CALCIUM LEVEL 9.7 MG/DL (8.5-10.1); CARBON DIOXIDE LEVEL 29 MEQ/L (21-32); CHLORIDE LEVEL 106 MEQ/L (98-107); CREATININE FOR GFR 0.78 MG/DL (0.55-1.30); GLOMERULAR FILTRATION RATE > 60.0 (>51); GLUCOSE, FASTING 163 MG/DL (70-100); POTASSIUM SERUM 4.4 MEQ/L (3.5-5.1); SODIUM LEVEL 139 MEQ/L (136-145)
== END ==
LOC: M LAB 11:53
PROVIDERS: ATTEND Internal Medicine Infectious Disease
DX: M86.172 Other acute osteomyelitis, left ankle and foot (principal)

== ENCOUNTER → 2020-10-10 | Outpatient (CLI) | payer OTHER ==
[~2020-10-10] MED LIST changes: -DEXT4TAB2 PO; +SFHGLU4TA PO
--- NOTE | 2020-10-11 18:21 | REP ---
INDICATION: VENOUS HTN COMPARISON: 06/24/2015 TECHNIQUE: García scale and color Doppler evaluation bilateral lower extremities using linear high frequency transducer. Reflux evaluation performed. FINDINGS: Ultrasound examination of the right and left lower extremity deep venous structures from the common femoral vein to the popliteal vein demonstrates normal compressibility flow and wave patterns in response to respiration and augmentation. There is no evidence for deep venous thrombosis. Right and left lower extremities demonstrate no superficial or deep reflux. IMPRESSION: No evidence for deep venous thrombosis. No evidence for reflux disease. <Electronically signed by Kaiden Buenrostro > 10/11/20 [id number]
== END ==
LOC: M RAD 12:46
PROVIDERS: ATTEND Radiology Diagnostic Radiology
DX: I83.90 Asymptomatic varicose veins of unspecified lower extremity (principal)

== ENCOUNTER → 2020-10-23 | Outpatient (POV) | payer OTHER ==
[~2020-10-23] VITALS: Ht 157.5 cm; Wt 115.0 kg
[2020-10-23 07:58] VITALS: BP 137/85
--- NOTE | 2020-10-24 12:07 | IRPN ---
[facility] IR Progress Note IR Progress Note DATE: Oct 23, 2020 FOLLOW-UP: 55-year-old diabetic female with bilateral lower extremity edema and nonhealing ulcers, left worse than right. She is now status post left lower extremity angiography which was negative for any significant occlusion or delay to flow. She decided to delay her right lower extremity angiography but would like to have it performed now. She did have left lower extremity venous ultrasound which demonstrates GSV reflux. ON EXAMINATION: Bilateral lower extremity swelling to the thigh. Bilateral high- grade compression stockings. Bilateral transmetatarsal amputations. IMPRESSION: 55-year-old diabetic female continues with bilateral lower extremity gross edema and nonhealing ulcers. She is now status post negative left lower extremity angiography and will be scheduled for her right lower extremity angiography. She does have positive left lower extremity venous reflux study and will be brought back for left lower extremity EVLT. Her right lower extremity sa phenous vein will also be re-interrogated with Doppler ultrasound in the same setting. Thank you for this referral. Cc Saundra Kaufman Allergies Coded Allergies: cefazolin (Verified Allergy, Intermediate, hives, 11/23/19) HAS HAD CEFTRIAXONE IN THE PAST fluoxetine (Verified Allergy, Intermediate, hives, 11/23/19) pseudoephedrine (Verified Allergy, Intermediate, hives, 11/23/19) trazodone (Verified Allergy, Intermediate, hives, 11/23/19) VS,Fishbone, I+O VS, Fishbone, I+O Vital Signs Date Time Temp Pulse Resp B/P (MAP) Pulse Ox O2 Delivery O2 Flow Rate FiO2 10/23/20 07:58 97.7 89 18 137/85 (102) 96 Room Air BERENICE SHAVER MD Oct 24, 2020 12:07
== END ==
LOC: M IRPOV 07:30
PROVIDERS: ATTEND Radiology Diagnostic Radiology
DX: E11.622 Type 2 diabetes mellitus with other skin ulcer (principal); L97.819 Non-pressure chronic ulcer of other part of right lower leg with unspecified severity; L97.829 Non-pressure chronic ulcer of other part of left lower leg with unspecified severity; I87.2 Venous insufficiency (chronic) (peripheral); R60.0 Localized edema; Z88.1 Allergy status to other antibiotic agents; Z88.8 Allergy status to other drugs, medicaments and biological substances

== ENCOUNTER → 2020-11-12 | Outpatient (CLI) | payer OTHER ==
[~2020-11-12] MED LIST changes: +CETI5SOL3 PO; +GABA-283 PO; -GABA-845 PO; +LIDOCAINE 1% MDV 20ML VIAL As Ordered ONE; +LIDOCAINE 2% MDV 20ML VIAL As Ordered ONE; +MIDAZOLAM INJ 2MG/2ML VIAL (J2250 PER 1MG) As Ordered ONE; +NS 1,000 ML IV SCH; +PROMETHAZINE INJ 25 MG/ML VIAL (J2550) As Ordered ONE; +diphenhydrAMINE 50MG/ML VIAL (J1200) As Ordered ONE; +fentaNYL 100 MCG/2 ML INJECTION (J3010) As Ordered ONE
--- NOTE | 2020-11-12 10:40 | IRHP ---
[facility] IR Pre-Procedure H & P General Date of Service: November 12, 2020 Procedure: Same Day Surgery Interval History and Physical I have seen the patient and reviewed last H & P performed within 30 days. There is no significant interval change. History of Present Illness Chief Complaint The patient is a 55-year-old female admitted with a reason for visit of Venous Ulcer. PRE-PROCEDURE DIAGNOSIS: Left lower extremity varicose veins HEART: Normal rate. LUNGS: Normal breathing at rest. ASA Classification ASA Classification: III-Severe systemic dis. Mallampati Score: II NPO: Yes Problems with prior sedation: No Obstructive Sleep Apnea: No Plan moderate sedation Allergies Coded Allergies: cefazolin (Verified Allergy, Intermediate, hives, 11/23/19) HAS HAD CEFTRIAXONE IN THE PAST fluoxetine (Verified Allergy, Intermediate, hives, 11/23/19) pseudoephedrine (Verified Allergy, Intermediate, hives, 11/23/19) trazodone (Verified Allergy, Intermediate, hives, 11/23/19) Home Medications Scheduled Amlodipine Besylate (Amlodipine Besylate), 10 MG PO DAILY, (Reported) Aspirin (Aspirin EC), 81 MG PO DAILY, (Reported) Atorvastatin Calcium (Atorvastatin Calcium), 10 MG PO QHS, (Reported) Cetirizine Hcl (Cetirizine HCl), 10 MG PO DAILY, (Reported) Dulaglutide (Trulicity), 1.5 MG SC 1XWK, (Reported) Duloxetine HCl (Duloxetine HCl), 60 MG PO DAILY, (Reported) Gabapentin (Gabapentin), 300 MG PO TID, (Reported) Hydroxyzine HCl (Hydroxyzine HCl), 25 MG PO BID, (Reported) Insulin Glargine,Hum.rec.anlog (Basaglar Kwikpen U-100), 60 UNIT SC BID, (Reported) Insulin Lispro (Admelog), 1 DOSE SC AC, (Reported) Levocetirizine Dihydrochloride (Levocetirizine Dihydrochloride), 5 MG PO QHS, (Reported) Discontinued Medications Arginine/Glutamine/Calcium Bmb (Miguel Packet), 1 POW PO, (Reported) Discontinued Reason: Pt states not taking VS, I&O, 24H, Fishbone Vital Signs/I&O Vital Signs Date Time Temp Pulse Resp B/P (MAP) Pulse Ox O2 Delivery O2 Flow Rate FiO2 11/12/20 10:29 82 20 100 Nasal Cannula 2.0 11/12/20 09:04 97.4 Laboratory Data 24H LABS Laboratory Tests 2 11/12/20 10:14: Bedside Glucose (Mis Panel) 237H BERENICE SHAVER MD November 12, 2020 10:40
[2020-11-12 13:30] VITALS: BP 147/61
--- NOTE | 2020-11-12 14:36 | IRPON ---
IR Postoperative Note Date Of Procedure: November 12, 2020 Time Of Procedure: 14:31 IR Postoperative Note IR Endovenous laser treatment for left leg varicose vein. IR Ultrasound of the left leg. IR Tumescent anesthesia under ultrasound guidance. IR Moderate sedation. Clinical information: Left lower extremity swelling and greater saphenous vein reflux. Nonhealing venous ulcers. Physician: Dr. Hernandez. Procedure: The patient was advised of the benefits, risks and alternatives of the procedure and informed consent was obtained. The time-out was performed with verification of the patient's name, MRN, site of procedure and type of procedure to be performed. The patient was positioned in the supine position on the table. The site was prepped and draped in the usual sterile fashion. Moderate sedation was performed by the physician including the presence of an independent trained RN who assisted in monitoring the patient's level of consciousness and physiologic status. Following the administration of fentanyl and Versed , the physician spent 60 minutes of continuous face to face time with the patient. Ultrasound of the left lower extremity demonstrates dilated left greater saphenous vein with greater than 0.5 seconds reflux. The access site was identified with ultrasound and anesthetized with lidocaine. The left greater saphenous vein was accessed under ultrasound guidance at the distal thigh, using a micro introducer needle. An 018 cope wire was advanced into the vein. Incision at the access site was made using a scalpel. The needle was removed and an access catheter was advanced over the wire under ultrasound guidance to > 2.5 centimeters from the saphenofemoral junction. The wire was removed and the laser fiber was advanced through the catheter under ultrasound guidance and positioned with the tip located 2.5 cm from the saphenous femoral junction. Tumescent anesthesia was then injected under ultrasound guidance along the entire length of the vein to be treated. Repeat ultrasound of the saphenofemoral junction was used to confirm positioning of the tip of the laser back 2.5 cm from junction. The patient was positioned in Trendelenburg. The laser was then activated and under ultrasound guidance used to laser the Left greater saphenous vein back to the access point. Simultaneous manual compression was applied to the treated vein. Treatment: Wattage: 7. Time: 120 seconds. Pullback rate 1 cm every 7 seconds. Total Energy deposited 838 joules. Treatment 50 joules per centimeter of vein. The fiber, catheter and sheath were removed, pressure held and hemostasis achieved. A sterile dressing was applied to the site. Compression dressing was then applied to the leg, from ankle to groin. The patient tolerated the procedure well and was returned to the PRU in stable condition. EBL: < 5 ml. Complications: None. Impression: 1. Ultrasound demonstrates dilated left greater saphenous vein with greater than 0.5 seconds reflux. 2. Successful left greater saphenous vein ablation with laser. 3. Compression dressing applied from ankle to groin. Patient to return in 1 week for follow up ultrasound at which time the compression dressing will be switched to stockings. Thank you this referral. Cc BERENICE Barrientos MD November 12, 2020 14:36
== END ==
LOC: M IRPRO 08:53
PROVIDERS: ATTEND Radiology Diagnostic Radiology
DX: I83.029 Varicose veins of left lower extremity with ulcer of unspecified site (principal); Z79.4 Long term (current) use of insulin; Z79.82 Long term (current) use of aspirin; Z79.899 Other long term (current) drug therapy; Z88.1 Allergy status to other antibiotic agents; Z88.8 Allergy status to other drugs, medicaments and biological substances
CPT/HCPCS: 36478; 76940; 99152; 99153; J1200; J2250; J3010

== ENCOUNTER → 2020-11-14 | Outpatient (REF) | payer OTHER ==
[~2020-11-14] MED LIST changes: -LIDOCAINE 1% MDV 20ML VIAL As Ordered ONE; -LIDOCAINE 2% MDV 20ML VIAL As Ordered ONE; -MIDAZOLAM INJ 2MG/2ML VIAL (J2250 PER 1MG) As Ordered ONE; -NS 1,000 ML IV SCH; -PROMETHAZINE INJ 25 MG/ML VIAL (J2550) As Ordered ONE; -diphenhydrAMINE 50MG/ML VIAL (J1200) As Ordered ONE; -fentaNYL 100 MCG/2 ML INJECTION (J3010) As Ordered ONE
== END ==
LOC: M LAB REF 16:08
PROVIDERS: ATTEND Physician Assistant
DX: L02.811 Cutaneous abscess of head [any part, except face] (principal)

== ENCOUNTER → 2020-11-19 | Outpatient (CLI) | payer OTHER ==
--- NOTE | 2020-11-19 10:41 | REP ---
INDICATION: POST EVLT LT LEG, R/O DVT. COMPARISON: Comparison study October 10, 2020.. TECHNIQUE: Left lower extremity duplex venous sonography FINDINGS: The deep veins are anechoic and fully compressible from the groin to the popliteal fossa in the left lower extremity. Color flow imaging is homogeneous. Spectral Doppler interrogation demonstrates intact respiratory variation in flow and normal manual augmentation of flow. There is no evidence of deep vein thrombosis. There is occlusive superficial vein thrombosis involving the treated greater saphenous vein on the left. Greater saphenous vein is occluded with thrombus extending from 2 cm below the common femoral junction down to below the knee. There is a large collateral off the greater saphenous vein which is also occluded with thrombus proximally. This collateral vein is seen to be open extending below the knee where it Ree connects to the greater saphenous vein. No reflux is seen however. IMPRESSION: Occlusive thrombosis of the greater saphenous vein post treatment. A collateral vein is seen as described above. There is no evidence of deep vein thrombosis in the left lower extremity.. <Electronically signed by Fredo Sandhu > 11/19/20 1037
== END ==
LOC: M RAD 09:37
PROVIDERS: ATTEND Radiology Diagnostic Radiology
DX: I82.812 Embolism and thrombosis of superficial veins of left lower extremity (principal); I73.9 Peripheral vascular disease, unspecified; I83.93 Asymptomatic varicose veins of bilateral lower extremities

== ENCOUNTER → 2020-12-19 | Outpatient (REF) | payer OTHER ==
[2020-12-19 17:10] LABS: BASO # 0.1 10^3/uL (0.0-0.2); BASO % 0.9 % (0.0-1.0); EOS # 0.3 10^3/uL (0.0-0.5); EOS % 2.2 % (0.0-3.0); HEMATOCRIT 39.1 % (36.0-47.0); HEMOGLOBIN 11.8 g/dl (12.0-15.5); LYMPH # 3.7 10^3/uL (1.5-5.0); LYMPH % 31.7 % (24.0-44.0); MEAN CORPUSCULAR HGB CONC 30.2 g/dl (32.0-36.5); MEAN CORPUSCULAR VOLUME 82.8 fl (80.0-96.0); MONO # 0.7 10^3/uL (0.0-0.8); MONO % 5.7 % (2.0-8.0); NEUTROPHILS # 6.7 10^3/uL (1.5-8.5); NEUTROPHILS % 58.4 % (36.0-66.0); PLATELET COUNT, AUTOMATED 464 10^3/uL (150-450); RED BLOOD COUNT 4.72 10^6/uL (4.00-5.40); WHITE BLOOD COUNT 11.5 10^3/uL (4.0-10.0)
[2020-12-19 17:27] LABS: ALBUMIN 2.2 GM/DL (3.2-5.2); ALT/SGPT 20 U/L (12-78); BILIRUBIN,TOTAL 0.1 MG/DL (0.2-1.0); BLOOD UREA NITROGEN 16 MG/DL (7-18); CALCIUM LEVEL 8.8 MG/DL (8.5-10.1); CARBON DIOXIDE LEVEL 24 MEQ/L (21-32); CHLORIDE LEVEL 102 MEQ/L (98-107); CREATININE FOR GFR 0.68 MG/DL (0.55-1.30); GLOMERULAR FILTRATION RATE > 60.0 (>51); GLUCOSE, FASTING 305 MG/DL (70-100); POTASSIUM SERUM 4.8 MEQ/L (3.5-5.1); SODIUM LEVEL 136 MEQ/L (136-145); TOTAL PROTEIN 6.5 GM/DL (6.4-8.2)
[2020-12-19 17:41] LABS: HEMOGLOBIN A1c 12.5 %
== END ==
LOC: M LAB REF 16:02
PROVIDERS: ATTEND Physician Assistant
DX: E11.621 Type 2 diabetes mellitus with foot ulcer (principal)

== ENCOUNTER → 2021-01-08 | Outpatient (CLI) | payer OTHER ==
[~2021-01-08] MED LIST changes: +CARV3.12 PO; -CEFD1CAP8 PO; -CLIN150C15 PO; +CLIN150C17 PO; -LISI-898 PO; -LISI2.5T2 PO; +LISI2.5T9 PO; +LISI5TAB11 PO; +LOSA100T45 PO; -LOSA100T50 PO; +LOSA25TA13; -LOSA25TA14; +LOSA50TA28 PO; -LOSA50TA88 PO; +RAME8TAB2 PO; +RISATAB3 PO
== END ==
LOC: M EKG 11:15
PROVIDERS: ATTEND Internal Medicine
DX: E11.621 Type 2 diabetes mellitus with foot ulcer (principal)

== ENCOUNTER → 2021-01-23 | Outpatient (CLI) | payer OTHER ==
[~2021-01-23] MED LIST changes: -CARV3.12 PO; +CEFD1CAP8 PO; +CLIN150C15 PO; -CLIN150C17 PO; +LISI-898 PO; +LISI2.5T2 PO; -LISI2.5T9 PO; -LISI5TAB11 PO; -LOSA100T45 PO; +LOSA100T50 PO; -LOSA25TA13; +LOSA25TA14; -LOSA50TA28 PO; +LOSA50TA88 PO; -RAME8TAB2 PO; -RISATAB3 PO
[2021-01-23 18:13] LABS: HEMATOCRIT 36.2 % (36.0-47.0); HEMOGLOBIN 11.3 g/dl (12.0-15.5); MEAN CORPUSCULAR HEMOGLOBIN 25.2 pg (27.0-33.0); MEAN CORPUSCULAR HGB CONC 31.2 g/dl (32.0-36.5); MEAN CORPUSCULAR VOLUME 80.8 fl (80.0-96.0); PLATELET COUNT, AUTOMATED 394 10^3/uL (150-450); RED BLOOD COUNT 4.48 10^6/uL (4.00-5.40); WHITE BLOOD COUNT 16.1 10^3/uL (4.0-10.0)
[2021-01-23 18:36] LABS: ALBUMIN 1.7 GM/DL (3.2-5.2); ALT/SGPT 17 U/L (12-78); BILIRUBIN,TOTAL 0.2 MG/DL (0.2-1.0); BLOOD UREA NITROGEN 14 MG/DL (7-18); CALCIUM LEVEL 8.9 MG/DL (8.5-10.1); CARBON DIOXIDE LEVEL 26 MEQ/L (21-32); CHLORIDE LEVEL 101 MEQ/L (98-107); CREATININE FOR GFR 0.98 MG/DL (0.55-1.30); GLOMERULAR FILTRATION RATE > 60.0 (>51); GLUCOSE, FASTING 197 MG/DL (70-100); POTASSIUM SERUM 3.7 MEQ/L (3.5-5.1); SODIUM LEVEL 136 MEQ/L (136-145); TOTAL PROTEIN 6.5 GM/DL (6.4-8.2)
== END ==
LOC: M LAB 17:35
PROVIDERS: ATTEND Internal Medicine
DX: L03.116 Cellulitis of left lower limb (principal); E11.621 Type 2 diabetes mellitus with foot ulcer; L97.509 Non-pressure chronic ulcer of other part of unspecified foot with unspecified severity; I10 Essential (primary) hypertension

== ENCOUNTER → 2021-01-25 | Outpatient (CLI) | payer OTHER ==
[2021-01-25 18:58] LABS: APPEARANCE, URINE CLOUDY (CLEAR); COLOR, URINE YELLOW (YELLOW); GLUCOSE, URINE (UA) AUTO 3+ mg/dL (NEGATIVE); KETONE, URINE AUTO NEGATIVE (NEGATIVE); PROTEIN, URINE AUTO 3+ mg/dL (NEGATIVE); SPECIFIC GRAVITY URINE AUTO 1.012 (1.002-1.035); UROBILINOGEN, URINE AUTO 0.2 mg/dL (0.0-2.0)
[2021-01-25 18:59] LABS: BACTERIA, URINE AUTO NEGATIVE (NEGATIVE); BILIRUBIN, URINE AUTO NEGATIVE (NEGATIVE); BLOOD, URINE BLOOD NEGATIVE (NEGATIVE); LEUKOCYTE ESTERASE, URINE AUTO NEGATIVE (NEGATIVE); MUCUS, URINE SMALL (NEGATIVE); NITRITE, URINE AUTO NEGATIVE (NEGATIVE); RBC, URINE AUTO 4 /HPF (0-3); SQUAMOUS EPITHELIAL CELL UR AU 25 /HPF (0-6); WBC, URINE AUTO 5 /HPF (0-3)
== END ==
LOC: M LAB 17:35
PROVIDERS: ATTEND Internal Medicine
DX: E11.621 Type 2 diabetes mellitus with foot ulcer (principal); E88.09 Other disorders of plasma-protein metabolism, not elsewhere classified

== ENCOUNTER → 2021-01-26 | Outpatient (CLI) | payer OTHER ==
[2021-01-28 07:43] LABS: URINE TOTAL PROTEIN 228.7 MG/DL (0-12)
== END ==
LOC: M LAB 08:30
PROVIDERS: ATTEND Internal Medicine
DX: E88.09 Other disorders of plasma-protein metabolism, not elsewhere classified (principal); E11.621 Type 2 diabetes mellitus with foot ulcer

== ENCOUNTER → 2021-02-16 | Outpatient (CLI) | payer OTHER ==
[~2021-02-16] MED LIST changes: -CLIN150C15 PO; +CLIN150C17 PO; -LISI2.5T2 PO; +LISI2.5T9 PO
[2021-02-16 12:41] LABS: HEMATOCRIT 37.6 % (36.0-47.0); HEMOGLOBIN 11.7 g/dl (12.0-15.5); MEAN CORPUSCULAR HEMOGLOBIN 25.4 pg (27.0-33.0); MEAN CORPUSCULAR HGB CONC 31.1 g/dl (32.0-36.5); MEAN CORPUSCULAR VOLUME 81.7 fl (80.0-96.0); PLATELET COUNT, AUTOMATED 361 10^3/uL (150-450); WHITE BLOOD COUNT 8.3 10^3/uL (4.0-10.0)
[2021-02-16 13:19] LABS: HEMOGLOBIN A1c 12.1 %
[2021-02-16 13:22] LABS: BLOOD UREA NITROGEN 14 MG/DL (7-18); CALCIUM LEVEL 8.5 MG/DL (8.5-10.1); CARBON DIOXIDE LEVEL 25 MEQ/L (21-32); CHLORIDE LEVEL 111 MEQ/L (98-107); CREATININE FOR GFR 0.69 MG/DL (0.55-1.30); GLOMERULAR FILTRATION RATE > 60.0 (>51); GLUCOSE, FASTING 60 MG/DL (70-100); POTASSIUM SERUM 4.5 MEQ/L (3.5-5.1); SODIUM LEVEL 141 MEQ/L (136-145)
== END ==
LOC: M LAB 12:15
PROVIDERS: ATTEND Internal Medicine
DX: E11.621 Type 2 diabetes mellitus with foot ulcer (principal); L97.509 Non-pressure chronic ulcer of other part of unspecified foot with unspecified severity

== ENCOUNTER → 2021-03-14 | Outpatient (REF) | payer OTHER | LOC: M SFHCPLAZ 17:11 | PROVIDERS: ATTEND Internal Medicine Infectious Disease | DX: A49.02 Methicillin resistant Staphylococcus aureus infection, unspecified site (principal) ==

== ENCOUNTER 2021-07-19 10:31 | Inpatient (IN) | payer OTHER ==
[~2021-07-19] VITALS: Ht 165.1 cm; Wt 110.5 kg
[~2021-07-19 10:31] MED LIST changes: -CEFD1CAP8 PO; -LISI-898 PO; +LISI5TAB11 PO; +LOSA100T45 PO; -LOSA100T50 PO; +LOSA25TA13; -LOSA25TA14; +LOSA50TA28 PO; -LOSA50TA88 PO
[2021-07-19 11:19] LABS: HEMATOCRIT 25.7 % (36.0-47.0); HEMOGLOBIN 8.1 g/dl (12.0-15.5); MEAN CORPUSCULAR HGB CONC 31.5 g/dl (32.0-36.5); MEAN CORPUSCULAR VOLUME 79.3 fl (80.0-96.0); PLATELET COUNT, AUTOMATED 910 10^3/uL (150-450); RED BLOOD COUNT 3.24 10^6/uL (4.00-5.40); WHITE BLOOD COUNT 27.3 10^3/uL (4.0-10.0)
[2021-07-19] MEDS ORDERED: VANCOMYCIN HCL 1,000 MG, VIAL MATE ADAPTER 1 EACH in NS 250 ML IV ONE (11:20)
[2021-07-19] MEDS ORDERED: PIPERACILLIN/TAZOBACTAM SOD 3.375 GM in D5W MINI-BAG PLUS 50 ML IV ONE (11:20)
[2021-07-19 11:29] LABS: INR 1.29; PROTHROMBIN TIME 16.5 SECONDS (12.7-14.5)
[2021-07-19 11:30] LABS: PARTIAL THROMBOPLASTIN TIME 47.4 SECONDS (25.9-37.0)
[2021-07-19] MEDS ORDERED: ONDANSETRON 4MG/2ML VIAL As Ordered ONE (11:47)
[2021-07-19 11:55] LABS: ALBUMIN 1.1 GM/DL (3.2-5.2); ALT/SGPT 9 U/L (12-78); BILIRUBIN,DIRECT 0.2 MG/DL (0.0-0.2); BILIRUBIN,TOTAL 0.4 MG/DL (0.2-1.0); BLOOD UREA NITROGEN 16 MG/DL (7-18); CALCIUM LEVEL 8.6 MG/DL (8.5-10.1); CARBON DIOXIDE LEVEL 21 MEQ/L (21-32); CHLORIDE LEVEL 98 MEQ/L (98-107); CREATININE FOR GFR 0.88 MG/DL (0.55-1.30); GLOMERULAR FILTRATION RATE > 60.0 (>51); GLUCOSE, FASTING 307 MG/DL (70-100); SODIUM LEVEL 132 MEQ/L (136-145); TOTAL PROTEIN 6.4 GM/DL (6.4-8.2)
[2021-07-19 12:00] LABS: LYMPHOCYTES 15 % (16-44); METAMYELOCYTES 2 % (0-0); MONOCYTES 5 % (0-5); MYELOCYTES 6 % (0-0); NEUTROPHILS 71 % (28-66)
[2021-07-19] MEDS ORDERED: ONDANSETRON 4MG/2ML VIAL IV ONE (12:00)
[2021-07-19 12:01] LABS: PLATELET ESTIMATE INCREASED (NORMAL)
[2021-07-19 13:06] LABS: ERYTHROCYTE SEDIMENTATION RATE 128 mm/hr (0-30)
[2021-07-19] MEDS ORDERED: GLUCOSE 4GM CHEW TABLET PO PRN (13:40)
[2021-07-19] MEDS ORDERED: GLUCAGON INJ 1MG VIAL SC PRN (13:40)
[2021-07-19] MEDS ORDERED: HOME MED LIST COMPLETE! XX SCH (14:20)
[2021-07-19] MEDS ORDERED: hydrOXYzine 25 MG TAB PO PRN (15:15)
[2021-07-19 16:30] VITALS: BP 171/64
[2021-07-19] MEDS ORDERED: MORPHINE 2 MG/ML 1ML VIAL (J2270) IV PRN ×2 (16:45)
[2021-07-19] MEDS: ACETAMINOPHEN TAB 650MG DOSE (2X325MG) PO PRN (17:20)
[2021-07-19] MEDS: GABAPENTIN 300 MG CAP PO SCH ×2 (17:20→19:59)
[2021-07-19] MEDS: VANCOMYCIN HCL 1,000 MG, VIAL MATE ADAPTER 1 EACH in NS 250 ML IV SCH (17:21)
[2021-07-19] MEDS: DULoxetine 30MG CAPSULE (CYMBALTA) PO SCH (17:21)
[2021-07-19] MEDS: CLINDAMYCIN 900 MG in IV 1 EA IV SCH (18:30)
[2021-07-19] MEDS: HumaLOG INSULIN (NovoLOG) PER UNIT SC SCH (18:30)
[2021-07-19] MEDS: PIPERACILLIN/TAZOBACTAM SOD 3.375 GM in D5W MINI-BAG PLUS 50 ML IV SCH (19:58)
[2021-07-19] MEDS: ONDANSETRON 4MG/2ML VIAL IV PRN (19:59)
[2021-07-19] MEDS: ATORVASTATIN 10 MG TAB PO SCH (19:59)
[2021-07-19] MEDS: LEVEMIR (INSULIN DETEMIR) 1 UNITS/0.01ML SC SCH (20:10)
[2021-07-19 20:30] VITALS: BP 117/56
[2021-07-19] MEDS ORDERED: HumaLOG INSULIN (NovoLOG) PER UNIT SC SCH (21:00)
[2021-07-19] MEDS ORDERED: LEVEMIR (INSULIN DETEMIR) 1 UNITS/0.01ML SC SCH (21:00)
[2021-07-20] MEDS: PIPERACILLIN/TAZOBACTAM SOD 3.375 GM in D5W MINI-BAG PLUS 50 ML IV SCH ×4 (01:29→20:56)
[2021-07-20] MEDS: CLINDAMYCIN 900 MG in IV 1 EA IV SCH ×3 (02:52→19:20)
[2021-07-20 05:21] VITALS: BP 135/58
[2021-07-20] MEDS: HumaLOG INSULIN (NovoLOG) PER UNIT SC SCH ×4 (05:27→16:55)
[2021-07-20] MEDS: VANCOMYCIN HCL 1,000 MG, VIAL MATE ADAPTER 1 EACH in NS 250 ML IV SCH ×2 (05:28→17:53)
[2021-07-20 06:39] LABS: HEMATOCRIT 25.1 % (36.0-47.0); HEMOGLOBIN 7.7 g/dl (12.0-15.5); MEAN CORPUSCULAR HEMOGLOBIN 24.6 pg (27.0-33.0); MEAN CORPUSCULAR HGB CONC 30.7 g/dl (32.0-36.5); MEAN CORPUSCULAR VOLUME 80.2 fl (80.0-96.0); PLATELET COUNT, AUTOMATED 829 10^3/uL (150-450); RED BLOOD COUNT 3.13 10^6/uL (4.00-5.40); WHITE BLOOD COUNT 22.7 10^3/uL (4.0-10.0)
[2021-07-20 07:53] LABS: ALBUMIN 0.8 GM/DL (3.2-5.2); ALT/SGPT 8 U/L (12-78); BILIRUBIN,TOTAL 0.2 MG/DL (0.2-1.0); BLOOD UREA NITROGEN 17 MG/DL (7-18); CALCIUM LEVEL 8.7 MG/DL (8.5-10.1); CARBON DIOXIDE LEVEL 22 MEQ/L (21-32); CHLORIDE LEVEL 106 MEQ/L (98-107); CREATININE FOR GFR 0.92 MG/DL (0.55-1.30); GLOMERULAR FILTRATION RATE > 60.0 (>51); GLUCOSE, FASTING 114 MG/DL (70-100); MAGNESIUM LEVEL 1.7 MG/DL (1.8-2.4); POTASSIUM SERUM 3.4 MEQ/L (3.5-5.1); SODIUM LEVEL 137 MEQ/L (136-145)
[2021-07-20] MEDS: GABAPENTIN 300 MG CAP PO SCH ×3 (09:11→20:10)
[2021-07-20] MEDS: DULoxetine 30MG CAPSULE (CYMBALTA) PO SCH (09:11)
[2021-07-20] MEDS: LEVEMIR (INSULIN DETEMIR) 1 UNITS/0.01ML SC SCH ×2 (09:16→20:56)
[2021-07-20] MEDS ORDERED: POTASSIUM CHLORIDE 10MEQ SR TABLET PO ONE (10:50)
[2021-07-20 14:00] VITALS: BP 124/62
[2021-07-20] MEDS: DEXTROSE 50% 50 ML SYRINGE IV PRN ×2 (16:44→20:42)
[2021-07-20] MEDS ORDERED: D5W/0.9% SODIUM CHLORIDE 1,000 ML IV SCH (17:00)
[2021-07-20] MEDS: ATORVASTATIN 10 MG TAB PO SCH (20:09)
[2021-07-20] MEDS ORDERED: D5W/0.45% SODIUM CHLORIDE 1,000 ML IV SCH (20:35)
[2021-07-20 22:00] VITALS: BP 129/57
[2021-07-21] VITALS (19 sets, daily range): BP systolic 108–157; BP diastolic 51–84
[2021-07-21] MEDS: PIPERACILLIN/TAZOBACTAM SOD 3.375 GM in D5W MINI-BAG PLUS 50 ML IV SCH ×4 (02:00→21:39)
[2021-07-21] MEDS ORDERED: fentaNYL 100 MCG/2 ML INJECTION As Ordered ONE (02:09)
[2021-07-21] MEDS ORDERED: MIDAZOLAM INJ 2MG/2ML VIAL (J2250 PER 1MG) As Ordered ONE (02:09)
[2021-07-21] MEDS ORDERED: ROCURONIUM BROMIDE 50 MG/5 ML VIAL As Ordered ONE (02:09)
[2021-07-21] MEDS ORDERED: propofoL 200 MG/20 ML VIAL As Ordered ONE (02:09)
[2021-07-21] MEDS ORDERED: LIDOCAINE 2% 100MG/5ML SDV (FOR ANES.) As Ordered ONE (02:09)
[2021-07-21] MEDS ORDERED: ONDANSETRON 4MG/2ML VIAL As Ordered ONE (02:55)
[2021-07-21] MEDS ORDERED: METOCLOPRAMIDE INJ 10MG/2ML VIAL (J2765 PER 1) As Ordered ONE (02:55)
[2021-07-21] MEDS ORDERED: ACETAMINOPHEN 1000MG 100ML IV BTL (OFIRMEV) (J0131 PER 10MG) As Ordered ONE (03:16)
[2021-07-21] MEDS ORDERED: HYDROMORPHONE HCL 0.5 MG/ 0.5 ML SYRINGE (J1170 PER 1) IV PRN (04:00)
[2021-07-21] MEDS ORDERED: fentaNYL 100 MCG/2 ML INJECTION IV PRN (04:00)
[2021-07-21] MEDS ORDERED: ONDANSETRON 4MG/2ML VIAL IV PRN (04:00)
[2021-07-21] MEDS ORDERED: LR 1,000 ML IV SCH (04:00)
[2021-07-21] MEDS ORDERED: oxyCODONE 5MG TAB PO PRN (04:00)
[2021-07-21] MEDS: HumaLOG INSULIN (NovoLOG) PER UNIT SC SCH ×5 (05:05→23:07)
[2021-07-21] MEDS: CLINDAMYCIN 900 MG in IV 1 EA IV SCH ×3 (05:47→19:57)
[2021-07-21 06:20] LABS: HEMATOCRIT 21.3 % (36.0-47.0); MEAN CORPUSCULAR HEMOGLOBIN 25.3 pg (27.0-33.0); MEAN CORPUSCULAR HGB CONC 31.5 g/dl (32.0-36.5); MEAN CORPUSCULAR VOLUME 80.4 fl (80.0-96.0); PLATELET COUNT, AUTOMATED 773 10^3/uL (150-450); RED BLOOD COUNT 2.65 10^6/uL (4.00-5.40); WHITE BLOOD COUNT 27.8 10^3/uL (4.0-10.0)
[2021-07-21 06:25] LABS: HEMOGLOBIN 6.7 g/dl (12.0-15.5)
[2021-07-21 06:49] LABS: BLOOD UREA NITROGEN 15 MG/DL (7-18); CALCIUM LEVEL 8.6 MG/DL (8.5-10.1); CARBON DIOXIDE LEVEL 25 MEQ/L (21-32); CHLORIDE LEVEL 106 MEQ/L (98-107); CREATININE FOR GFR 1.02 MG/DL (0.55-1.30); GLOMERULAR FILTRATION RATE > 60.0 (>51); GLUCOSE, FASTING 150 MG/DL (70-100); MAGNESIUM LEVEL 1.8 MG/DL (1.8-2.4); POTASSIUM SERUM 3.8 MEQ/L (3.5-5.1); SODIUM LEVEL 139 MEQ/L (136-145); VANCOMYCIN LEVEL TROUGH 20.6 UG/ML (10.0-20.0)
[2021-07-21 06:54] LABS: ATYPICAL LYMPH 1 % (0-5); LYMPHOCYTES 13 % (16-44); METAMYELOCYTES 5 % (0-0); MONOCYTES 5 % (0-5); MYELOCYTES 4 % (0-0); NEUTROPHILS 66 % (28-66)
[2021-07-21 06:58] LABS: ANISOCYTOSIS 1+; PLATELET ESTIMATE INCREASED (NORMAL)
[2021-07-21 06:59] LABS: MICROCYTOSIS 1+; POLYCHROMASIA 1+
[2021-07-21] MEDS: GABAPENTIN 300 MG CAP PO SCH ×3 (08:13→21:40)
[2021-07-21] MEDS: DULoxetine 30MG CAPSULE (CYMBALTA) PO SCH (08:13)
[2021-07-21] MEDS: LEVEMIR (INSULIN DETEMIR) 1 UNITS/0.01ML SC SCH ×2 (08:14→21:40)
[2021-07-21] MEDS: PERCOCET 5MG/325MG TAB PO PRN ×2 (14:15→19:57)
[2021-07-21] MEDS: VANCOMYCIN HCL 750 MG, VIAL MATE ADAPTER 1 EACH in NS 250 ML IV SCH (15:14)
[2021-07-21] MEDS: ATORVASTATIN 10 MG TAB PO SCH (21:40)
[2021-07-21] MEDS: RAMELTEON 8 MG TAB (ROZEREM) PO PRN (22:56)
[2021-07-22] MEDS: VANCOMYCIN HCL 750 MG, VIAL MATE ADAPTER 1 EACH in NS 250 ML IV SCH (01:10)
[2021-07-22] MEDS: PERCOCET 5MG/325MG TAB PO PRN ×3 (01:13→20:26)
[2021-07-22 02:00] VITALS: BP 150/75
[2021-07-22] MEDS: PIPERACILLIN/TAZOBACTAM SOD 3.375 GM in D5W MINI-BAG PLUS 50 ML IV SCH ×4 (02:53→20:10)
[2021-07-22] MEDS: CLINDAMYCIN 900 MG in IV 1 EA IV SCH (03:58)
[2021-07-22 06:00] VITALS: BP 152/74
[2021-07-22 06:22] LABS: HEMATOCRIT 25.2 % (36.0-47.0); HEMOGLOBIN 8.2 g/dl (12.0-15.5); MEAN CORPUSCULAR HGB CONC 32.5 g/dl (32.0-36.5); PLATELET COUNT, AUTOMATED 711 10^3/uL (150-450); RED BLOOD COUNT 3.15 10^6/uL (4.00-5.40); WHITE BLOOD COUNT 24.5 10^3/uL (4.0-10.0)
[2021-07-22 06:46] LABS: ANISOCYTOSIS 1+; ATYPICAL LYMPH 1 % (0-5); LYMPHOCYTES 25 % (16-44); METAMYELOCYTES 1 % (0-0); MONOCYTES 5 % (0-5); NEUTROPHILS 66 % (28-66); PLATELET ESTIMATE INCREASED (NORMAL)
[2021-07-22 06:48] LABS: BLOOD UREA NITROGEN 14 MG/DL (7-18); CALCIUM LEVEL 8.1 MG/DL (8.5-10.1); CARBON DIOXIDE LEVEL 24 MEQ/L (21-32); CHLORIDE LEVEL 105 MEQ/L (98-107); CREATININE FOR GFR 0.97 MG/DL (0.55-1.30); GLOMERULAR FILTRATION RATE > 60.0 (>51); GLUCOSE, FASTING 105 MG/DL (70-100); MAGNESIUM LEVEL 1.3 MG/DL (1.8-2.4); POTASSIUM SERUM 3.1 MEQ/L (3.5-5.1); SODIUM LEVEL 137 MEQ/L (136-145)
[2021-07-22] MEDS: DULoxetine 30MG CAPSULE (CYMBALTA) PO SCH (08:03)
[2021-07-22] MEDS: GABAPENTIN 300 MG CAP PO SCH ×3 (08:03→20:10)
[2021-07-22] MEDS: MAG SULF 1GM/100ML (MAG RUN) 1 GM in IV 1 EA IV SCH ×3 (08:04→11:31)
[2021-07-22] MEDS: POTASSIUM CHLORIDE 10MEQ SR TABLET PO SCH ×2 (08:04→10:34)
[2021-07-22] MEDS: HumaLOG INSULIN (NovoLOG) PER UNIT SC SCH ×4 (08:08→20:33)
[2021-07-22] MEDS: LEVEMIR (INSULIN DETEMIR) 1 UNITS/0.01ML SC SCH ×2 (08:08→20:33)
[2021-07-22 10:00] VITALS: BP 142/67
[2021-07-22] MEDS: LACTOBACILLUS ACIDOPHILUS CAP (BACID) PO SCH ×3 (11:31→20:10)
[2021-07-22] MEDS ORDERED: LIDOCAINE 1% MDV 20ML VIAL As Ordered ONE (13:16)
[2021-07-22 14:00] VITALS: BP 142/64
[2021-07-22] MEDS: VANCOMYCIN HCL 1,000 MG, VIAL MATE ADAPTER 1 EACH in NS 250 ML IV SCH (15:26)
[2021-07-22 18:00] VITALS: BP 140/66
[2021-07-22] MEDS: SODIUM CHLORIDE 0.9% INJ 10 ML SYR IV SCH (18:11)
[2021-07-22] MEDS: ATORVASTATIN 10 MG TAB PO SCH (20:10)
[2021-07-22] MEDS: SODIUM CHLORIDE 0.9% INJ 10 ML SYR IV PRN (20:11)
[2021-07-22] MEDS: RAMELTEON 8 MG TAB (ROZEREM) PO PRN (20:25)
[2021-07-22 20:30] VITALS: BP 115/65
[2021-07-23] VITALS (9 sets, daily range): BP systolic 127–156; BP diastolic 66–88
[2021-07-23] MEDS: PIPERACILLIN/TAZOBACTAM SOD 3.375 GM in D5W MINI-BAG PLUS 50 ML IV SCH ×3 (01:29→13:02)
[2021-07-23] MEDS: SODIUM CHLORIDE 0.9% INJ 10 ML SYR IV SCH ×2 (02:24→17:19)
[2021-07-23 06:46] LABS: HEMATOCRIT 25.4 % (36.0-47.0); HEMOGLOBIN 8.1 g/dl (12.0-15.5); MEAN CORPUSCULAR HEMOGLOBIN 25.6 pg (27.0-33.0); MEAN CORPUSCULAR HGB CONC 31.9 g/dl (32.0-36.5); MEAN CORPUSCULAR VOLUME 80.4 fl (80.0-96.0); PLATELET COUNT, AUTOMATED 746 10^3/uL (150-450); RED BLOOD COUNT 3.16 10^6/uL (4.00-5.40); WHITE BLOOD COUNT 28.7 10^3/uL (4.0-10.0)
[2021-07-23] MEDS ORDERED: LIDOCAINE 2% 100MG/5ML SDV (FOR ANES.) As Ordered ONE (07:12)
[2021-07-23] MEDS ORDERED: propofoL 200 MG/20 ML VIAL As Ordered ONE (07:12)
[2021-07-23] MEDS ORDERED: fentaNYL 100 MCG/2 ML INJECTION As Ordered ONE (07:12)
[2021-07-23] MEDS ORDERED: METOCLOPRAMIDE INJ 10MG/2ML VIAL (J2765 PER 1) As Ordered ONE (07:12)
[2021-07-23] MEDS ORDERED: MIDAZOLAM INJ 2MG/2ML VIAL (J2250 PER 1MG) As Ordered ONE (07:12)
[2021-07-23] MEDS ORDERED: ONDANSETRON 4MG/2ML VIAL As Ordered ONE (07:12)
[2021-07-23] MEDS ORDERED: ACETAMINOPHEN 1000MG 100ML IV BTL (OFIRMEV) (J0131 PER 10MG) As Ordered ONE (07:12)
[2021-07-23] MEDS ORDERED: dexameTHASONE 4 MG/ML 1ML VIAL (J1100 PER 1MG) As Ordered ONE (07:12)
[2021-07-23] MEDS ORDERED: ROCURONIUM BROMIDE 50 MG/5 ML VIAL As Ordered ONE (07:12)
[2021-07-23 07:17] LABS: ANISOCYTOSIS 3+; EOSINOPHILS 2 % (0-3); LYMPHOCYTES 11 % (16-44); METAMYELOCYTES 1 % (0-0); MONOCYTES 2 % (0-5); MYELOCYTES 1 % (0-0); NEUTROPHILS 81 % (28-66); PLATELET ESTIMATE INCREASED (NORMAL)
[2021-07-23] MEDS ORDERED: ZOSYN 3.375GM VIAL As Ordered ONE (07:17)
[2021-07-23] MEDS: HumaLOG INSULIN (NovoLOG) PER UNIT SC SCH ×4 (07:30→19:23)
[2021-07-23] MEDS: LACTOBACILLUS ACIDOPHILUS CAP (BACID) PO SCH ×4 (08:00→19:18)
[2021-07-23 08:16] LABS: CALCIUM LEVEL 8.7 MG/DL (8.5-10.1); CREATININE FOR GFR 1.19 MG/DL (0.55-1.30); GLOMERULAR FILTRATION RATE 50.3 (>51); MAGNESIUM LEVEL 2.1 MG/DL (1.8-2.4); POTASSIUM SERUM 3.8 MEQ/L (3.5-5.1)
[2021-07-23] MEDS ORDERED: SUGAMMADEX SODIUM 500 MG/5 ML VIAL (BRIDION) As Ordered ONE (09:03)
[2021-07-23] MEDS ORDERED: HYDROMORPHONE HCL 0.5 MG/ 0.5 ML SYRINGE (J1170 PER 1) IV PRN (11:10)
[2021-07-23] MEDS ORDERED: LR 1,000 ML IV SCH (11:10)
[2021-07-23] MEDS ORDERED: ONDANSETRON 4MG/2ML VIAL IV PRN (11:10)
[2021-07-23] MEDS: oxyCODONE 5MG TAB PO PRN ×2 (11:30→12:02)
[2021-07-23] MEDS: ONDANSETRON 4MG/2ML VIAL IV PRN (11:31)
[2021-07-23] MEDS: fentaNYL 100 MCG/2 ML INJECTION IV PRN ×4 (11:31→11:49)
[2021-07-23] MEDS: HYDROMORPHONE HCL 0.5 MG/ 0.5 ML SYRINGE (J1170 PER 1) IV PRN ×2 (12:01→19:17)
[2021-07-23 12:11] LABS: HEMATOCRIT 29.4 % (36.0-47.0); HEMOGLOBIN 9.5 g/dl (12.0-15.5); MEAN CORPUSCULAR HGB CONC 32.3 g/dl (32.0-36.5); MEAN CORPUSCULAR VOLUME 83.5 fl (80.0-96.0); RED BLOOD COUNT 3.52 10^6/uL (4.00-5.40)
[2021-07-23 12:13] LABS: PLATELET COUNT, AUTOMATED 621 10^3/uL (150-450)
[2021-07-23 12:14] LABS: WHITE BLOOD COUNT 33.5 10^3/uL (4.0-10.0)
[2021-07-23] MEDS: LEVEMIR (INSULIN DETEMIR) 1 UNITS/0.01ML SC SCH ×2 (12:46→19:17)
[2021-07-23] MEDS: GABAPENTIN 300 MG CAP PO SCH ×3 (12:46→19:18)
[2021-07-23] MEDS: DULoxetine 30MG CAPSULE (CYMBALTA) PO SCH (13:02)
[2021-07-23] MEDS: VANCOMYCIN HCL 1,000 MG, VIAL MATE ADAPTER 1 EACH in NS 250 ML IV SCH (15:02)
[2021-07-23] MEDS: cefTRIAXone SOD 2 GM in D5W MINI-BAG PLUS 50 ML IV SCH (17:18)
[2021-07-23] MEDS: ATORVASTATIN 10 MG TAB PO SCH (19:18)
[2021-07-23] MEDS: SENOKOT S TAB PO SCH (19:18)
[2021-07-24] VITALS (11 sets, daily range): BP systolic 144–162; BP diastolic 61–82; O2SAT 92
[2021-07-24] MEDS: HYDROMORPHONE HCL 0.5 MG/ 0.5 ML SYRINGE (J1170 PER 1) IV PRN ×6 (00:13→22:06)
[2021-07-24] MEDS: RAMELTEON 8 MG TAB (ROZEREM) PO PRN ×2 (00:13→20:03)
[2021-07-24] MEDS: SODIUM CHLORIDE 0.9% INJ 10 ML SYR IV PRN (00:14)
[2021-07-24] MEDS: SODIUM CHLORIDE 0.9% INJ 10 ML SYR IV SCH ×2 (06:01→18:06)
[2021-07-24 06:27] LABS: HEMATOCRIT 24.3 % (36.0-47.0); HEMOGLOBIN 7.8 g/dl (12.0-15.5); MEAN CORPUSCULAR HGB CONC 32.1 g/dl (32.0-36.5); MEAN CORPUSCULAR VOLUME 84.1 fl (80.0-96.0); PLATELET COUNT, AUTOMATED 654 10^3/uL (150-450); RED BLOOD COUNT 2.89 10^6/uL (4.00-5.40); WHITE BLOOD COUNT 29.1 10^3/uL (4.0-10.0)
[2021-07-24 06:45] LABS: ANISOCYTOSIS 1+; EOSINOPHILS 1 % (0-3); LYMPHOCYTES 7 % (16-44); METAMYELOCYTES 1 % (0-0); MONOCYTES 1 % (0-5); MYELOCYTES 2 % (0-0); NEUTROPHILS 88 % (28-66); PLATELET ESTIMATE INCREASED (NORMAL); POIKILOCYTOSIS 1+; POLYCHROMASIA 1+
[2021-07-24 06:57] LABS: CALCIUM LEVEL 7.9 MG/DL (8.5-10.1); CREATININE FOR GFR 1.57 MG/DL (0.55-1.30); GLOMERULAR FILTRATION RATE 36.5 (>51); MAGNESIUM LEVEL 2.1 MG/DL (1.8-2.4); POTASSIUM SERUM 4.1 MEQ/L (3.5-5.1)
[2021-07-24] MEDS: LEVEMIR (INSULIN DETEMIR) 1 UNITS/0.01ML SC SCH ×2 (08:47→20:04)
[2021-07-24] MEDS: HumaLOG INSULIN (NovoLOG) PER UNIT SC SCH ×4 (08:48→20:39)
[2021-07-24] MEDS: GABAPENTIN 300 MG CAP PO SCH ×3 (08:48→20:03)
[2021-07-24] MEDS: DULoxetine 30MG CAPSULE (CYMBALTA) PO SCH (08:48)
[2021-07-24] MEDS: LACTOBACILLUS ACIDOPHILUS CAP (BACID) PO SCH ×4 (08:48→20:03)
[2021-07-24] MEDS: NS 1,000 ML IV SCH (08:54)
[2021-07-24] MEDS: cefTRIAXone SOD 2 GM in D5W MINI-BAG PLUS 50 ML IV SCH (16:04)
[2021-07-24 16:34] LABS: HEMATOCRIT 26.3 % (36.0-47.0); HEMOGLOBIN 8.5 g/dl (12.0-15.5); MEAN CORPUSCULAR HEMOGLOBIN 27.7 pg (27.0-33.0); MEAN CORPUSCULAR HGB CONC 32.3 g/dl (32.0-36.5); MEAN CORPUSCULAR VOLUME 85.7 fl (80.0-96.0); PLATELET COUNT, AUTOMATED 652 10^3/uL (150-450); RED BLOOD COUNT 3.07 10^6/uL (4.00-5.40); WHITE BLOOD COUNT 28.4 10^3/uL (4.0-10.0)
[2021-07-24] MEDS: SENOKOT S TAB PO SCH (20:03)
[2021-07-24] MEDS: ATORVASTATIN 10 MG TAB PO SCH (20:03)
[2021-07-25] VITALS (11 sets, daily range): BP systolic 143–190; BP diastolic 67–78; O2SAT 96
[2021-07-25] MEDS: NS 1,000 ML IV SCH (02:24)
[2021-07-25] MEDS: HYDROMORPHONE HCL 0.5 MG/ 0.5 ML SYRINGE (J1170 PER 1) IV PRN (02:53)
[2021-07-25] MEDS: SODIUM CHLORIDE 0.9% INJ 10 ML SYR IV SCH ×2 (04:58→17:30)
[2021-07-25 05:08] LABS: HEMATOCRIT 24.8 % (36.0-47.0); HEMOGLOBIN 8.1 g/dl (12.0-15.5); MEAN CORPUSCULAR HEMOGLOBIN 28.1 pg (27.0-33.0); MEAN CORPUSCULAR HGB CONC 32.7 g/dl (32.0-36.5); MEAN CORPUSCULAR VOLUME 86.1 fl (80.0-96.0); PLATELET COUNT, AUTOMATED 596 10^3/uL (150-450); RED BLOOD COUNT 2.88 10^6/uL (4.00-5.40); WHITE BLOOD COUNT 20.8 10^3/uL (4.0-10.0)
[2021-07-25 05:33] LABS: CALCIUM LEVEL 7.9 MG/DL (8.5-10.1); CREATININE FOR GFR 1.07 MG/DL (0.55-1.30); GLOMERULAR FILTRATION RATE 56.9 (>51); MAGNESIUM LEVEL 2.1 MG/DL (1.8-2.4); POTASSIUM SERUM 4.3 MEQ/L (3.5-5.1)
[2021-07-25 05:35] LABS: ANISOCYTOSIS 1+; EOSINOPHILS 2 % (0-3); LYMPHOCYTES 18 % (16-44); MONOCYTES 3 % (0-5); NEUTROPHILS 75 % (28-66); PLATELET ESTIMATE INCREASED (NORMAL)
[2021-07-25 05:36] LABS: POIKILOCYTOSIS 1+; POLYCHROMASIA 1+
[2021-07-25] MEDS: HumaLOG INSULIN (NovoLOG) PER UNIT SC SCH ×4 (07:30→20:07)
[2021-07-25] MEDS: DULoxetine 30MG CAPSULE (CYMBALTA) PO SCH (09:30)
[2021-07-25] MEDS: LACTOBACILLUS ACIDOPHILUS CAP (BACID) PO SCH ×4 (09:30→20:05)
[2021-07-25] MEDS: GABAPENTIN 300 MG CAP PO SCH ×3 (09:30→20:05)
[2021-07-25] MEDS: LEVEMIR (INSULIN DETEMIR) 1 UNITS/0.01ML SC SCH ×2 (09:32→20:05)
[2021-07-25] MEDS: HYDROmorphone HCL 2MG/ML 1ML VIAL IV PRN ×3 (09:34→17:29)
[2021-07-25] MEDS: cefTRIAXone SOD 2 GM in D5W MINI-BAG PLUS 50 ML IV SCH (17:28)
[2021-07-25] MEDS: hydrOXYzine 25 MG TAB PO PRN (20:05)
[2021-07-25] MEDS: ATORVASTATIN 10 MG TAB PO SCH (20:05)
[2021-07-25] MEDS: SENOKOT S TAB PO SCH (20:05)
[2021-07-25] MEDS: RAMELTEON 8 MG TAB (ROZEREM) PO PRN (20:05)
[2021-07-26] VITALS (7 sets, daily range): BP systolic 145–166; BP diastolic 62–73; O2SAT 94
[2021-07-26] MEDS: HYDROmorphone HCL 2MG/ML 1ML VIAL IV PRN ×5 (00:02→22:57)
[2021-07-26] MEDS: ACETAMINOPHEN TAB 650MG DOSE (2X325MG) PO PRN (03:00)
[2021-07-26 05:17] LABS: HEMATOCRIT 25.2 % (36.0-47.0); HEMOGLOBIN 8.1 g/dl (12.0-15.5); MEAN CORPUSCULAR HEMOGLOBIN 27.8 pg (27.0-33.0); MEAN CORPUSCULAR HGB CONC 32.1 g/dl (32.0-36.5); MEAN CORPUSCULAR VOLUME 86.6 fl (80.0-96.0); PLATELET COUNT, AUTOMATED 633 10^3/uL (150-450); RED BLOOD COUNT 2.91 10^6/uL (4.00-5.40); WHITE BLOOD COUNT 14.6 10^3/uL (4.0-10.0)
[2021-07-26] MEDS: SODIUM CHLORIDE 0.9% INJ 10 ML SYR IV SCH ×2 (05:32→17:44)
[2021-07-26 05:42] LABS: LYMPHOCYTES 11 % (16-44); METAMYELOCYTES 2 % (0-0); MONOCYTES 6 % (0-5); MYELOCYTES 1 % (0-0); NEUTROPHILS 77 % (28-66); PLATELET ESTIMATE INCREASED (NORMAL)
[2021-07-26 05:43] LABS: ANISOCYTOSIS 1+
[2021-07-26 05:44] LABS: POIKILOCYTOSIS 1+; POLYCHROMASIA 1+
[2021-07-26 05:48] LABS: BLOOD UREA NITROGEN 16 MG/DL (7-18); C REACTIVE PROTEIN QUANTITATIV 5.63 MG/DL (0.00-0.30); CARBON DIOXIDE LEVEL 26 MEQ/L (21-32); CHLORIDE LEVEL 107 MEQ/L (98-107); CREATININE FOR GFR 0.77 MG/DL (0.55-1.30); GLOMERULAR FILTRATION RATE > 60.0 (>51); GLUCOSE, FASTING 64 MG/DL (70-100); MAGNESIUM LEVEL 1.7 MG/DL (1.8-2.4); POTASSIUM SERUM 4.5 MEQ/L (3.5-5.1); SODIUM LEVEL 141 MEQ/L (136-145)
[2021-07-26] MEDS: HumaLOG INSULIN (NovoLOG) PER UNIT SC SCH ×4 (08:45→20:32)
[2021-07-26] MEDS: LACTOBACILLUS ACIDOPHILUS CAP (BACID) PO SCH ×4 (08:53→20:39)
[2021-07-26] MEDS: DULoxetine 30MG CAPSULE (CYMBALTA) PO SCH (08:53)
[2021-07-26] MEDS: GABAPENTIN 300 MG CAP PO SCH ×3 (08:53→20:39)
[2021-07-26] MEDS: LEVEMIR (INSULIN DETEMIR) 1 UNITS/0.01ML SC SCH ×2 (09:58→20:39)
[2021-07-26] MEDS: SODIUM CHLORIDE 0.9% INJ 10 ML SYR IV PRN (09:58)
[2021-07-26] MEDS: cefTRIAXone SOD 2 GM in D5W MINI-BAG PLUS 50 ML IV SCH (17:43)
[2021-07-26] MEDS: ATORVASTATIN 10 MG TAB PO SCH (20:39)
[2021-07-26] MEDS: SENOKOT S TAB PO SCH (20:39)
[2021-07-26] MEDS: hydrOXYzine 25 MG TAB PO PRN (20:42)
[2021-07-26] MEDS: RAMELTEON 8 MG TAB (ROZEREM) PO PRN (20:42)
[2021-07-27] VITALS (8 sets, daily range): BP systolic 88–171; BP diastolic 21–88; O2SAT 92
[2021-07-27] MEDS: HYDROmorphone HCL 2MG/ML 1ML VIAL IV PRN ×4 (03:24→22:06)
[2021-07-27] MEDS: SODIUM CHLORIDE 0.9% INJ 10 ML SYR IV SCH ×2 (06:24→17:45)
[2021-07-27 06:55] LABS: HEMATOCRIT 26.5 % (36.0-47.0); HEMOGLOBIN 8.3 g/dl (12.0-15.5); MEAN CORPUSCULAR HEMOGLOBIN 27.4 pg (27.0-33.0); MEAN CORPUSCULAR HGB CONC 31.3 g/dl (32.0-36.5); MEAN CORPUSCULAR VOLUME 87.5 fl (80.0-96.0); PLATELET COUNT, AUTOMATED 608 10^3/uL (150-450); RED BLOOD COUNT 3.03 10^6/uL (4.00-5.40)
[2021-07-27 07:20] LABS: BLOOD UREA NITROGEN 14 MG/DL (7-18); CALCIUM LEVEL 8.4 MG/DL (8.5-10.1); CARBON DIOXIDE LEVEL 27 MEQ/L (21-32); CHLORIDE LEVEL 105 MEQ/L (98-107); CREATININE FOR GFR 0.82 MG/DL (0.55-1.30); GLOMERULAR FILTRATION RATE > 60.0 (>51); GLUCOSE, FASTING 80 MG/DL (70-100); MAGNESIUM LEVEL 1.7 MG/DL (1.8-2.4); POTASSIUM SERUM 4.6 MEQ/L (3.5-5.1); SODIUM LEVEL 139 MEQ/L (136-145)
[2021-07-27] MEDS: HumaLOG INSULIN (NovoLOG) PER UNIT SC SCH ×4 (07:30→21:00)
[2021-07-27 07:33] LABS: ATYPICAL LYMPH 1 % (0-5); BASOPHILS 1 % (0-1); EOSINOPHILS 1 % (0-3); LYMPHOCYTES 22 % (16-44); METAMYELOCYTES 2 % (0-0); MONOCYTES 7 % (0-5); MYELOCYTES 2 % (0-0); NEUTROPHILS 61 % (28-66); PLASMA CELL 1 % (0-0)
[2021-07-27 07:35] LABS: ANISOCYTOSIS 2+; PLATELET CLUMPS SMALL AMT; PLATELET ESTIMATE INCREASED (NORMAL)
[2021-07-27 07:36] LABS: POLYCHROMASIA 1+
[2021-07-27] MEDS: DULoxetine 30MG CAPSULE (CYMBALTA) PO SCH (08:35)
[2021-07-27] MEDS: GABAPENTIN 300 MG CAP PO SCH ×3 (08:35→22:01)
[2021-07-27] MEDS: LACTOBACILLUS ACIDOPHILUS CAP (BACID) PO SCH ×4 (08:35→22:01)
[2021-07-27] MEDS: LEVEMIR (INSULIN DETEMIR) 1 UNITS/0.01ML SC SCH ×2 (08:37→22:04)
[2021-07-27] MEDS: CARVedilol 3.125 MG TAB PO SCH ×2 (13:50→22:02)
[2021-07-27] MEDS ORDERED: MAG SULF 1GM/100ML (MAG RUN) 1 GM in IV 1 EA IV ONE (14:00)
[2021-07-27] MEDS: cefTRIAXone SOD 2 GM in D5W MINI-BAG PLUS 50 ML IV SCH (16:26)
[2021-07-27] MEDS: SENOKOT S TAB PO SCH (21:00)
[2021-07-27] MEDS: ATORVASTATIN 10 MG TAB PO SCH (22:01)
[2021-07-28] MEDS: HYDROmorphone HCL 2MG/ML 1ML VIAL IV PRN ×5 (02:04→21:29)
[2021-07-28 04:22] VITALS: O2SAT 91
[2021-07-28 06:00] VITALS: BP 131/79
[2021-07-28] MEDS: SODIUM CHLORIDE 0.9% INJ 10 ML SYR IV SCH ×2 (06:11→17:04)
[2021-07-28] MEDS: HumaLOG INSULIN (NovoLOG) PER UNIT SC SCH ×4 (07:30→20:23)
[2021-07-28] MEDS: LEVEMIR (INSULIN DETEMIR) 1 UNITS/0.01ML SC SCH ×2 (08:30→20:23)
[2021-07-28] MEDS: GABAPENTIN 300 MG CAP PO SCH ×3 (08:30→20:15)
[2021-07-28] MEDS: DULoxetine 30MG CAPSULE (CYMBALTA) PO SCH (08:30)
[2021-07-28] MEDS: LACTOBACILLUS ACIDOPHILUS CAP (BACID) PO SCH ×4 (08:30→20:15)
[2021-07-28] MEDS: CARVedilol 3.125 MG TAB PO SCH ×2 (08:32→20:24)
[2021-07-28 10:21] LABS: BASO # 0.1 10^3/uL (0.0-0.2); BASO % 0.7 % (0.0-1.0); EOS # 0.3 10^3/uL (0.0-0.5); EOS % 2.9 % (0.0-3.0); HEMATOCRIT 28.4 % (36.0-47.0); HEMOGLOBIN 8.9 g/dl (12.0-15.5); LYMPH # 2.2 10^3/uL (1.5-5.0); LYMPH % 22.3 % (24.0-44.0); MEAN CORPUSCULAR HEMOGLOBIN 27.1 pg (27.0-33.0); MEAN CORPUSCULAR HGB CONC 31.3 g/dl (32.0-36.5); MEAN CORPUSCULAR VOLUME 86.3 fl (80.0-96.0); MONO # 0.8 10^3/uL (0.0-0.8); MONO % 8.2 % (2.0-8.0); NEUTROPHILS # 6.1 10^3/uL (1.5-8.5); NEUTROPHILS % 61.9 % (36.0-66.0); PLATELET COUNT, AUTOMATED 639 10^3/uL (150-450); RED BLOOD COUNT 3.29 10^6/uL (4.00-5.40); WHITE BLOOD COUNT 9.9 10^3/uL (4.0-10.0)
[2021-07-28 10:50] LABS: BLOOD UREA NITROGEN 16 MG/DL (7-18); C REACTIVE PROTEIN QUANTITATIV 3.55 MG/DL (0.00-0.30); CALCIUM LEVEL 8.5 MG/DL (8.5-10.1); CARBON DIOXIDE LEVEL 27 MEQ/L (21-32); CHLORIDE LEVEL 103 MEQ/L (98-107); CREATININE FOR GFR 0.94 MG/DL (0.55-1.30); GLOMERULAR FILTRATION RATE > 60.0 (>51); GLUCOSE, FASTING 228 MG/DL (70-100); MAGNESIUM LEVEL 1.8 MG/DL (1.8-2.4); POTASSIUM SERUM 4.7 MEQ/L (3.5-5.1); SODIUM LEVEL 134 MEQ/L (136-145)
[2021-07-28 11:40] VITALS: O2SAT 92
[2021-07-28 14:00] VITALS: BP 141/58
[2021-07-28] MEDS: cefTRIAXone SOD 2 GM in D5W MINI-BAG PLUS 50 ML IV SCH (17:04)
[2021-07-28 18:00] VITALS: BP 162/81
[2021-07-28 18:07] LABS: INR 1.12; PROTHROMBIN TIME 14.8 SECONDS (12.7-14.5)
[2021-07-28 18:08] LABS: PARTIAL THROMBOPLASTIN TIME 32.5 SECONDS (25.9-37.0)
[2021-07-28 18:10] LABS: D-DIMER QUANT 2258.47 ng/ml (<500)
[2021-07-28 18:22] LABS: ALBUMIN 1.4 GM/DL (3.2-5.2); ALT/SGPT 20 U/L (12-78); BILIRUBIN,DIRECT < 0.1 MG/DL (0.0-0.2); BILIRUBIN,TOTAL 0.1 MG/DL (0.2-1.0); FERRITIN 473 NG/ML (8-252); LDH LACTATE DEHYDROGENASE 239 U/L (84-246); NT-PRO BNP 309 PG/ML (<125); TOTAL PROTEIN 7.2 GM/DL (6.4-8.2)
[2021-07-28] MEDS ORDERED: REMDESIVIR 200 MG in NS 250 ML IV ONE (19:00)
[2021-07-28 20:00] VITALS: O2SAT 96
[2021-07-28] MEDS: ATORVASTATIN 10 MG TAB PO SCH (20:15)
[2021-07-28] MEDS: RAMELTEON 8 MG TAB (ROZEREM) PO PRN (20:15)
[2021-07-28] MEDS: SENOKOT S TAB PO SCH (20:16)
[2021-07-28] MEDS ORDERED: SODIUM CHLORIDE 0.9% INJ 10 ML SYR IV ONE (21:00)
[2021-07-28] MEDS: ACETAMINOPHEN TAB 650MG DOSE (2X325MG) PO PRN (21:30)
[2021-07-29] VITALS (8 sets, daily range): BP systolic 104–141; BP diastolic 51–76; O2SAT 92–98
[2021-07-29] MEDS: SODIUM CHLORIDE 0.9% INJ 10 ML SYR IV SCH ×2 (04:57→20:33)
[2021-07-29] MEDS: HumaLOG INSULIN (NovoLOG) PER UNIT SC SCH ×4 (07:30→21:00)
[2021-07-29] MEDS ORDERED: dexameTHASONE 4 MG/ML 1ML VIAL (J1100 PER 1MG) IV SCH (09:00)
[2021-07-29] MEDS: LEVEMIR (INSULIN DETEMIR) 1 UNITS/0.01ML SC SCH ×2 (09:00→20:32)
[2021-07-29 09:24] LABS: BASO # 0.1 10^3/uL (0.0-0.2); BASO % 0.9 % (0.0-1.0); EOS # 0.1 10^3/uL (0.0-0.5); EOS % 0.7 % (0.0-3.0); HEMATOCRIT 32.6 % (36.0-47.0); HEMOGLOBIN 10.2 g/dl (12.0-15.5); LYMPH # 2.1 10^3/uL (1.5-5.0); LYMPH % 20.3 % (24.0-44.0); MEAN CORPUSCULAR HEMOGLOBIN 27.3 pg (27.0-33.0); MEAN CORPUSCULAR HGB CONC 31.3 g/dl (32.0-36.5); MEAN CORPUSCULAR VOLUME 87.4 fl (80.0-96.0); MONO # 0.8 10^3/uL (0.0-0.8); MONO % 7.5 % (2.0-8.0); NEUTROPHILS # 6.9 10^3/uL (1.5-8.5); NEUTROPHILS % 66.9 % (36.0-66.0); PLATELET COUNT, AUTOMATED 757 10^3/uL (150-450); RED BLOOD COUNT 3.73 10^6/uL (4.00-5.40); WHITE BLOOD COUNT 10.3 10^3/uL (4.0-10.0)
[2021-07-29] MEDS: GABAPENTIN 300 MG CAP PO SCH ×3 (09:45→20:28)
[2021-07-29] MEDS: DULoxetine 30MG CAPSULE (CYMBALTA) PO SCH (09:46)
[2021-07-29] MEDS: ACETAMINOPHEN TAB 650MG DOSE (2X325MG) PO PRN (09:46)
[2021-07-29] MEDS: CARVedilol 3.125 MG TAB PO SCH ×2 (09:46→20:28)
[2021-07-29] MEDS: ENOXAPARIN 40MG/0.4ML SYRINGE (J1650 PER 10MG) SC SCH (09:50)
[2021-07-29] MEDS: LACTOBACILLUS ACIDOPHILUS CAP (BACID) PO SCH ×4 (09:50→20:28)
[2021-07-29 09:53] LABS: ALBUMIN 1.5 GM/DL (3.2-5.2); ALT/SGPT 22 U/L (12-78); BILIRUBIN,DIRECT < 0.1 MG/DL (0.0-0.2); BILIRUBIN,TOTAL 0.1 MG/DL (0.2-1.0); BLOOD UREA NITROGEN 18 MG/DL (7-18); CALCIUM LEVEL 9.3 MG/DL (8.5-10.1); CARBON DIOXIDE LEVEL 26 MEQ/L (21-32); CHLORIDE LEVEL 102 MEQ/L (98-107); GLOMERULAR FILTRATION RATE > 60.0 (>51); GLUCOSE, FASTING 158 MG/DL (70-100); MAGNESIUM LEVEL 1.9 MG/DL (1.8-2.4); POTASSIUM SERUM 4.6 MEQ/L (3.5-5.1); SODIUM LEVEL 136 MEQ/L (136-145); TOTAL PROTEIN 7.7 GM/DL (6.4-8.2)
[2021-07-29] MEDS ORDERED: LevoFLOXacin IV 750 MG in IV 1 EA IV SCH (10:00)
[2021-07-29] MEDS ORDERED: ONDANSETRON 4 MG ORAL DISINTEGRATING TAB PO ONE (10:30)
[2021-07-29] MEDS ORDERED: LIDOCAINE 1% MDV 20ML VIAL As Ordered ONE (15:03)
[2021-07-29] MEDS: HYDROmorphone HCL 2MG/ML 1ML VIAL IV PRN ×2 (17:19→21:49)
[2021-07-29] MEDS: REMDESIVIR 100 MG in NS 250 ML IV SCH (17:55)
[2021-07-29] MEDS ORDERED: SODIUM CHLORIDE 0.9% INJ 10 ML SYR IV PRN (18:15)
[2021-07-29] MEDS: ATORVASTATIN 10 MG TAB PO SCH (20:28)
[2021-07-29] MEDS: SENOKOT S TAB PO SCH (20:29)
[2021-07-30] VITALS (9 sets, daily range): BP systolic 120–140; BP diastolic 58–67; O2SAT 93–96
[2021-07-30] MEDS: HYDROmorphone HCL 2MG/ML 1ML VIAL IV PRN ×3 (01:56→12:11)
[2021-07-30 06:21] LABS: VENOUS BASE EXCESS 0.7 (-2.0-2.0); VENOUS HCO3 23.8 MEQ/L (23.0-27.0); VENOUS O2 SATURATION 98.8 % (60.0-80.0); VENOUS PARTIAL PRESSURE CO2 32.3 mmHg (38.0-50.0); VENOUS PARTIAL PRESSURE O2 135.5 mmHg (30.0-50.0); VENOUS PH 7.486 UNITS (7.330-7.430); VENOUS STANDARD HCO3 25.2 MEQ/L; VENOUS TOTAL CO2 24.8 MEQ/L (24.0-28.0)
[2021-07-30 06:26] LABS: BASO # 0.1 10^3/uL (0.0-0.2); BASO % 0.9 % (0.0-1.0); EOS # 0.1 10^3/uL (0.0-0.5); EOS % 1.2 % (0.0-3.0); HEMATOCRIT 25.9 % (36.0-47.0); HEMOGLOBIN 8.2 g/dl (12.0-15.5); LYMPH # 2.8 10^3/uL (1.5-5.0); LYMPH % 37.1 % (24.0-44.0); MEAN CORPUSCULAR HEMOGLOBIN 27.2 pg (27.0-33.0); MEAN CORPUSCULAR HGB CONC 31.7 g/dl (32.0-36.5); MONO # 0.8 10^3/uL (0.0-0.8); MONO % 10.9 % (2.0-8.0); NEUTROPHILS # 3.6 10^3/uL (1.5-8.5); PLATELET COUNT, AUTOMATED 563 10^3/uL (150-450); RED BLOOD COUNT 3.01 10^6/uL (4.00-5.40); WHITE BLOOD COUNT 7.6 10^3/uL (4.0-10.0)
[2021-07-30] MEDS: SODIUM CHLORIDE 0.9% INJ 10 ML SYR IV SCH ×3 (06:28→21:18)
[2021-07-30 06:36] LABS: INR 1.1; PROTHROMBIN TIME 14.6 SECONDS (12.7-14.5)
[2021-07-30 06:37] LABS: PARTIAL THROMBOPLASTIN TIME 49.8 SECONDS (25.9-37.0)
[2021-07-30 07:00] LABS: ALBUMIN 1.2 GM/DL (3.2-5.2); ALT/SGPT 36 U/L (12-78); BILIRUBIN,DIRECT < 0.1 MG/DL (0.0-0.2); BILIRUBIN,TOTAL 0.1 MG/DL (0.2-1.0); BLOOD UREA NITROGEN 23 MG/DL (7-18); CALCIUM LEVEL 7.4 MG/DL (8.5-10.1); CARBON DIOXIDE LEVEL 26 MEQ/L (21-32); CHLORIDE LEVEL 103 MEQ/L (98-107); FERRITIN 574 NG/ML (8-252); GLOMERULAR FILTRATION RATE > 60.0 (>51); GLUCOSE, FASTING 73 MG/DL (70-100); LDH LACTATE DEHYDROGENASE 245 U/L (84-246); MAGNESIUM LEVEL 1.8 MG/DL (1.8-2.4); NT-PRO BNP 194 PG/ML (<125); POTASSIUM SERUM 4.7 MEQ/L (3.5-5.1); SODIUM LEVEL 136 MEQ/L (136-145); TOTAL PROTEIN 5.5 GM/DL (6.4-8.2)
[2021-07-30] MEDS: CARVedilol 3.125 MG TAB PO SCH ×2 (08:38→21:20)
[2021-07-30] MEDS: LACTOBACILLUS ACIDOPHILUS CAP (BACID) PO SCH ×4 (08:38→23:06)
[2021-07-30] MEDS: DULoxetine 30MG CAPSULE (CYMBALTA) PO SCH (08:38)
[2021-07-30] MEDS: GABAPENTIN 300 MG CAP PO SCH ×3 (08:39→21:19)
[2021-07-30] MEDS: ENOXAPARIN 40MG/0.4ML SYRINGE (J1650 PER 10MG) SC SCH (08:39)
[2021-07-30] MEDS: HumaLOG INSULIN (NovoLOG) PER UNIT SC SCH ×4 (08:40→21:00)
[2021-07-30] MEDS: LEVEMIR (INSULIN DETEMIR) 1 UNITS/0.01ML SC SCH ×2 (09:00→21:21)
[2021-07-30] MEDS: PERCOCET 5MG/325MG TAB PO PRN ×2 (15:16→21:29)
[2021-07-30] MEDS: REMDESIVIR 100 MG in NS 250 ML IV SCH (20:15)
[2021-07-30] MEDS: SENOKOT S TAB PO SCH (21:19)
[2021-07-30] MEDS: ATORVASTATIN 10 MG TAB PO SCH (21:29)
[2021-07-31] VITALS: BP 117/56; O2SAT 98
[2021-07-31 04:00] VITALS: BP 120/59; O2SAT 95
[2021-07-31] MEDS: hydrOXYzine 25 MG TAB PO PRN (06:12)
[2021-07-31] MEDS: SODIUM CHLORIDE 0.9% INJ 10 ML SYR IV SCH ×2 (06:12→18:12)
[2021-07-31 06:16] LABS: BASO # 0.1 10^3/uL (0.0-0.2); BASO % 1.4 % (0.0-1.0); EOS # 0.2 10^3/uL (0.0-0.5); EOS % 3.6 % (0.0-3.0); HEMATOCRIT 27.4 % (36.0-47.0); HEMOGLOBIN 8.5 g/dl (12.0-15.5); LYMPH % 50.7 % (24.0-44.0); MEAN CORPUSCULAR HEMOGLOBIN 27.1 pg (27.0-33.0); MEAN CORPUSCULAR VOLUME 87.3 fl (80.0-96.0); MONO # 0.7 10^3/uL (0.0-0.8); MONO % 11.7 % (2.0-8.0); NEUTROPHILS # 1.7 10^3/uL (1.5-8.5); NEUTROPHILS % 29.9 % (36.0-66.0); PLATELET COUNT, AUTOMATED 533 10^3/uL (150-450); RED BLOOD COUNT 3.14 10^6/uL (4.00-5.40); WHITE BLOOD COUNT 5.8 10^3/uL (4.0-10.0)
[2021-07-31 06:42] LABS: BLOOD UREA NITROGEN 23 MG/DL (7-18); CALCIUM LEVEL 7.8 MG/DL (8.5-10.1); CARBON DIOXIDE LEVEL 25 MEQ/L (21-32); CHLORIDE LEVEL 108 MEQ/L (98-107); CREATININE FOR GFR 0.89 MG/DL (0.55-1.30); GLOMERULAR FILTRATION RATE > 60.0 (>51); GLUCOSE, FASTING 184 MG/DL (70-100); MAGNESIUM LEVEL 2.1 MG/DL (1.8-2.4); POTASSIUM SERUM 4.5 MEQ/L (3.5-5.1); SODIUM LEVEL 137 MEQ/L (136-145)
[2021-07-31 08:00] VITALS: BP 119/59
[2021-07-31] MEDS: CARVedilol 3.125 MG TAB PO SCH ×2 (09:00→21:12)
[2021-07-31] MEDS: HumaLOG INSULIN (NovoLOG) PER UNIT SC SCH ×4 (09:20→20:55)
[2021-07-31] MEDS: DULoxetine 30MG CAPSULE (CYMBALTA) PO SCH (09:20)
[2021-07-31] MEDS: GABAPENTIN 300 MG CAP PO SCH ×3 (09:22→21:12)
[2021-07-31] MEDS: ENOXAPARIN 40MG/0.4ML SYRINGE (J1650 PER 10MG) SC SCH (09:22)
[2021-07-31] MEDS: LACTOBACILLUS ACIDOPHILUS CAP (BACID) PO SCH ×4 (09:22→21:11)
[2021-07-31] MEDS: LEVEMIR (INSULIN DETEMIR) 1 UNITS/0.01ML SC SCH ×2 (09:22→21:12)
[2021-07-31] MEDS: PERCOCET 5MG/325MG TAB PO PRN ×2 (12:52→21:11)
[2021-07-31 20:00] VITALS: BP 154/67
[2021-07-31] MEDS: SENOKOT S TAB PO SCH (21:00)
[2021-07-31] MEDS: RAMELTEON 8 MG TAB (ROZEREM) PO PRN (21:11)
[2021-07-31] MEDS: ATORVASTATIN 10 MG TAB PO SCH (21:12)
[2021-08-01 04:00] VITALS: BP 120/59
[2021-08-01] MEDS: SODIUM CHLORIDE 0.9% INJ 10 ML SYR IV SCH ×2 (04:32→17:11)
[2021-08-01] MEDS: PERCOCET 5MG/325MG TAB PO PRN ×3 (04:55→20:08)
[2021-08-01 05:16] LABS: BASO # 0.1 10^3/uL (0.0-0.2); EOS # 0.3 10^3/uL (0.0-0.5); EOS % 4.3 % (0.0-3.0); HEMATOCRIT 27.9 % (36.0-47.0); HEMOGLOBIN 8.8 g/dl (12.0-15.5); LYMPH % 50.3 % (24.0-44.0); MEAN CORPUSCULAR HEMOGLOBIN 27.3 pg (27.0-33.0); MEAN CORPUSCULAR HGB CONC 31.5 g/dl (32.0-36.5); MEAN CORPUSCULAR VOLUME 86.6 fl (80.0-96.0); MONO # 0.7 10^3/uL (0.0-0.8); MONO % 8.2 % (2.0-8.0); NEUTROPHILS # 2.8 10^3/uL (1.5-8.5); NEUTROPHILS % 34.7 % (36.0-66.0); PLATELET COUNT, AUTOMATED 553 10^3/uL (150-450); RED BLOOD COUNT 3.22 10^6/uL (4.00-5.40); WHITE BLOOD COUNT 7.9 10^3/uL (4.0-10.0)
[2021-08-01 05:21] LABS: INR 1.05; PROTHROMBIN TIME 14.1 SECONDS (12.7-14.5)
[2021-08-01 05:22] LABS: PARTIAL THROMBOPLASTIN TIME 47.7 SECONDS (25.9-37.0)
[2021-08-01 06:08] LABS: ALBUMIN 1.5 GM/DL (3.2-5.2); ALT/SGPT 36 U/L (12-78); BILIRUBIN,DIRECT < 0.1 MG/DL (0.0-0.2); BILIRUBIN,TOTAL 0.1 MG/DL (0.2-1.0); BLOOD UREA NITROGEN 19 MG/DL (7-18); CALCIUM LEVEL 8.3 MG/DL (8.5-10.1); CARBON DIOXIDE LEVEL 27 MEQ/L (21-32); CHLORIDE LEVEL 108 MEQ/L (98-107); CREATININE FOR GFR 0.87 MG/DL (0.55-1.30); FERRITIN 643 NG/ML (8-252); GLOMERULAR FILTRATION RATE > 60.0 (>51); GLUCOSE, FASTING 76 MG/DL (70-100); LDH LACTATE DEHYDROGENASE 241 U/L (84-246); NT-PRO BNP 91 PG/ML (<125); SODIUM LEVEL 140 MEQ/L (136-145)
[2021-08-01] MEDS: HumaLOG INSULIN (NovoLOG) PER UNIT SC SCH ×4 (07:30→19:58)
[2021-08-01] MEDS: CARVedilol 3.125 MG TAB PO SCH ×2 (07:37→20:11)
[2021-08-01] MEDS: LACTOBACILLUS ACIDOPHILUS CAP (BACID) PO SCH ×4 (08:53→20:07)
[2021-08-01] MEDS: ENOXAPARIN 40MG/0.4ML SYRINGE (J1650 PER 10MG) SC SCH (08:53)
[2021-08-01] MEDS: GABAPENTIN 300 MG CAP PO SCH ×3 (08:53→20:07)
[2021-08-01] MEDS: DULoxetine 30MG CAPSULE (CYMBALTA) PO SCH (08:53)
[2021-08-01] MEDS: LEVEMIR (INSULIN DETEMIR) 1 UNITS/0.01ML SC SCH ×2 (08:57→20:07)
[2021-08-01 14:17] LABS: MAGNESIUM LEVEL 1.9 MG/DL (1.7-2.2)
[2021-08-01] MEDS: ATORVASTATIN 10 MG TAB PO SCH (20:07)
[2021-08-01] MEDS: ACETAMINOPHEN TAB 650MG DOSE (2X325MG) PO PRN (20:07)
[2021-08-01] MEDS: RAMELTEON 8 MG TAB (ROZEREM) PO PRN (20:07)
[2021-08-02] MEDS: SODIUM CHLORIDE 0.9% INJ 10 ML SYR IV SCH ×2 (05:06→17:09)
[2021-08-02 05:09] VITALS: BP 128/58
[2021-08-02] MEDS: ENOXAPARIN 40MG/0.4ML SYRINGE (J1650 PER 10MG) SC SCH (08:27)
[2021-08-02] MEDS: LACTOBACILLUS ACIDOPHILUS CAP (BACID) PO SCH ×4 (08:27→21:21)
[2021-08-02] MEDS: GABAPENTIN 300 MG CAP PO SCH ×3 (08:27→21:21)
[2021-08-02] MEDS: DULoxetine 30MG CAPSULE (CYMBALTA) PO SCH (08:27)
[2021-08-02] MEDS: HumaLOG INSULIN (NovoLOG) PER UNIT SC SCH ×4 (08:28→21:00)
[2021-08-02] MEDS: LEVEMIR (INSULIN DETEMIR) 1 UNITS/0.01ML SC SCH ×2 (08:30→21:20)
[2021-08-02] MEDS: CARVedilol 3.125 MG TAB PO SCH ×2 (08:31→21:21)
[2021-08-02] MEDS: PERCOCET 5MG/325MG TAB PO PRN ×2 (09:55→21:20)
[2021-08-02 11:03] LABS: BASO # 0.1 10^3/uL (0.0-0.2); BASO % 0.7 % (0.0-1.0); EOS # 0.4 10^3/uL (0.0-0.5); EOS % 4.4 % (0.0-3.0); HEMATOCRIT 29.9 % (36.0-47.0); HEMOGLOBIN 9.4 g/dl (12.0-15.5); LYMPH % 30.4 % (24.0-44.0); MEAN CORPUSCULAR HGB CONC 31.4 g/dl (32.0-36.5); MEAN CORPUSCULAR VOLUME 85.9 fl (80.0-96.0); MONO # 0.6 10^3/uL (0.0-0.8); MONO % 5.8 % (2.0-8.0); NEUTROPHILS # 5.6 10^3/uL (1.5-8.5); NEUTROPHILS % 57.5 % (36.0-66.0); PLATELET COUNT, AUTOMATED 560 10^3/uL (150-450); RED BLOOD COUNT 3.48 10^6/uL (4.00-5.40); WHITE BLOOD COUNT 9.8 10^3/uL (4.0-10.0)
[2021-08-02 11:28] LABS: BLOOD UREA NITROGEN 16 MG/DL (7-18); CARBON DIOXIDE LEVEL 24 MEQ/L (21-32); CHLORIDE LEVEL 109 MEQ/L (98-107); CREATININE FOR GFR 0.85 MG/DL (0.55-1.30); GLOMERULAR FILTRATION RATE > 60.0 (>51); GLUCOSE, FASTING 209 MG/DL (70-100); POTASSIUM SERUM 4.6 MEQ/L (3.5-5.1); SODIUM LEVEL 137 MEQ/L (136-145)
[2021-08-02 14:04] VITALS: BP 148/65
[2021-08-02] MEDS: ATORVASTATIN 10 MG TAB PO SCH (21:21)
[2021-08-03 04:57] VITALS: BP 144/69
[2021-08-03] MEDS: SODIUM CHLORIDE 0.9% INJ 10 ML SYR IV SCH ×2 (06:16→17:05)
[2021-08-03] MEDS: HumaLOG INSULIN (NovoLOG) PER UNIT SC SCH ×4 (07:30→20:27)
[2021-08-03] MEDS: LACTOBACILLUS ACIDOPHILUS CAP (BACID) PO SCH ×4 (08:16→20:27)
[2021-08-03] MEDS: ENOXAPARIN 40MG/0.4ML SYRINGE (J1650 PER 10MG) SC SCH (08:16)
[2021-08-03] MEDS: DULoxetine 30MG CAPSULE (CYMBALTA) PO SCH (08:16)
[2021-08-03] MEDS: LEVEMIR (INSULIN DETEMIR) 1 UNITS/0.01ML SC SCH ×2 (08:17→20:27)
[2021-08-03] MEDS: CARVedilol 3.125 MG TAB PO SCH ×2 (08:17→20:27)
[2021-08-03] MEDS: GABAPENTIN 300 MG CAP PO SCH ×3 (08:17→20:27)
[2021-08-03 08:37] LABS: BASO # 0.1 10^3/uL (0.0-0.2); BASO % 0.9 % (0.0-1.0); EOS # 0.4 10^3/uL (0.0-0.5); EOS % 3.7 % (0.0-3.0); HEMATOCRIT 30.3 % (36.0-47.0); HEMOGLOBIN 9.4 g/dl (12.0-15.5); LYMPH # 2.5 10^3/uL (1.5-5.0); LYMPH % 22.7 % (24.0-44.0); MEAN CORPUSCULAR HEMOGLOBIN 27.1 pg (27.0-33.0); MEAN CORPUSCULAR VOLUME 87.3 fl (80.0-96.0); MONO # 0.8 10^3/uL (0.0-0.8); MONO % 7.2 % (2.0-8.0); NEUTROPHILS % 63.8 % (36.0-66.0); PLATELET COUNT, AUTOMATED 555 10^3/uL (150-450); RED BLOOD COUNT 3.47 10^6/uL (4.00-5.40)
[2021-08-03 08:53] LABS: INR 1.04; PARTIAL THROMBOPLASTIN TIME 35.4 SECONDS (25.9-37.0)
[2021-08-03] MEDS: PERCOCET 5MG/325MG TAB PO PRN (09:06)
[2021-08-03 09:32] LABS: ALBUMIN 1.7 GM/DL (3.2-5.2); ALT/SGPT 23 U/L (12-78); BILIRUBIN,DIRECT < 0.1 MG/DL (0.0-0.2); BILIRUBIN,TOTAL 0.2 MG/DL (0.2-1.0); BLOOD UREA NITROGEN 13 MG/DL (7-18); CALCIUM LEVEL 8.7 MG/DL (8.5-10.1); CARBON DIOXIDE LEVEL 25 MEQ/L (21-32); CHLORIDE LEVEL 108 MEQ/L (98-107); CREATININE FOR GFR 0.71 MG/DL (0.55-1.30); FERRITIN 453 NG/ML (8-252); GLOMERULAR FILTRATION RATE > 60.0 (>51); GLUCOSE, FASTING 82 MG/DL (70-100); LDH LACTATE DEHYDROGENASE 224 U/L (84-246); NT-PRO BNP 272 PG/ML (<125); SODIUM LEVEL 139 MEQ/L (136-145); TOTAL PROTEIN 6.4 GM/DL (6.4-8.2)
[2021-08-03 12:36] LABS: MAGNESIUM LEVEL 1.8 MG/DL (1.7-2.2)
[2021-08-03 19:38] VITALS: BP 141/65
[2021-08-03 19:41] LABS: MAGNESIUM LEVEL 1.7 MG/DL (1.7-2.2)
[2021-08-03] MEDS: ACETAMINOPHEN TAB 650MG DOSE (2X325MG) PO PRN (20:26)
[2021-08-03] MEDS: ATORVASTATIN 10 MG TAB PO SCH (20:27)
[2021-08-03] MEDS: RAMELTEON 8 MG TAB (ROZEREM) PO PRN (20:27)
[2021-08-04] MEDS: SODIUM CHLORIDE 0.9% INJ 10 ML SYR IV SCH ×2 (05:19→16:58)
[2021-08-04 05:25] VITALS: BP 143/62
[2021-08-04 07:20] LABS: BASO # 0.1 10^3/uL (0.0-0.2); EOS # 0.5 10^3/uL (0.0-0.5); EOS % 5.8 % (0.0-3.0); HEMATOCRIT 27.8 % (36.0-47.0); HEMOGLOBIN 8.6 g/dl (12.0-15.5); LYMPH # 2.6 10^3/uL (1.5-5.0); LYMPH % 30.2 % (24.0-44.0); MEAN CORPUSCULAR HEMOGLOBIN 26.6 pg (27.0-33.0); MEAN CORPUSCULAR HGB CONC 30.9 g/dl (32.0-36.5); MEAN CORPUSCULAR VOLUME 86.1 fl (80.0-96.0); MONO # 0.7 10^3/uL (0.0-0.8); MONO % 8.6 % (2.0-8.0); NEUTROPHILS # 4.5 10^3/uL (1.5-8.5); NEUTROPHILS % 52.1 % (36.0-66.0); PLATELET COUNT, AUTOMATED 538 10^3/uL (150-450); RED BLOOD COUNT 3.23 10^6/uL (4.00-5.40); WHITE BLOOD COUNT 8.6 10^3/uL (4.0-10.0)
[2021-08-04 07:46] LABS: BLOOD UREA NITROGEN 15 MG/DL (7-18); CALCIUM LEVEL 8.9 MG/DL (8.5-10.1); CARBON DIOXIDE LEVEL 22 MEQ/L (21-32); CHLORIDE LEVEL 106 MEQ/L (98-107); CREATININE FOR GFR 0.81 MG/DL (0.55-1.30); GLOMERULAR FILTRATION RATE > 60.0 (>51); GLUCOSE, FASTING 145 MG/DL (70-100); POTASSIUM SERUM 4.3 MEQ/L (3.5-5.1); SODIUM LEVEL 135 MEQ/L (136-145)
[2021-08-04] MEDS: ENOXAPARIN 40MG/0.4ML SYRINGE (J1650 PER 10MG) SC SCH (08:03)
[2021-08-04] MEDS: HumaLOG INSULIN (NovoLOG) PER UNIT SC SCH ×4 (08:03→20:55)
[2021-08-04] MEDS: LEVEMIR (INSULIN DETEMIR) 1 UNITS/0.01ML SC SCH ×2 (08:03→20:53)
[2021-08-04] MEDS: DULoxetine 30MG CAPSULE (CYMBALTA) PO SCH (08:04)
[2021-08-04] MEDS: GABAPENTIN 300 MG CAP PO SCH ×3 (08:04→20:54)
[2021-08-04] MEDS: LACTOBACILLUS ACIDOPHILUS CAP (BACID) PO SCH ×4 (08:04→20:54)
[2021-08-04] MEDS: CARVedilol 3.125 MG TAB PO SCH ×2 (08:04→20:54)
[2021-08-04] MEDS: PERCOCET 5MG/325MG TAB PO PRN (08:35)
[2021-08-04 12:00] VITALS: BP 116/57
[2021-08-04 16:13] LABS: MAGNESIUM LEVEL 1.6 MG/DL (1.7-2.2)
[2021-08-04] MEDS: ATORVASTATIN 10 MG TAB PO SCH (20:54)
[2021-08-04] MEDS: RAMELTEON 8 MG TAB (ROZEREM) PO PRN (20:54)
[2021-08-04] MEDS: ACETAMINOPHEN TAB 650MG DOSE (2X325MG) PO PRN (20:54)
[2021-08-04 21:00] VITALS: BP 132/69
[2021-08-05] MEDS: PERCOCET 5MG/325MG TAB PO PRN ×2 (02:41→22:35)
[2021-08-05] MEDS: SODIUM CHLORIDE 0.9% INJ 10 ML SYR IV SCH ×2 (02:42→18:02)
[2021-08-05 04:00] VITALS: BP 121/62
[2021-08-05] MEDS: DULoxetine 30MG CAPSULE (CYMBALTA) PO SCH (08:13)
[2021-08-05] MEDS: LACTOBACILLUS ACIDOPHILUS CAP (BACID) PO SCH ×4 (08:14→22:31)
[2021-08-05] MEDS: ENOXAPARIN 40MG/0.4ML SYRINGE (J1650 PER 10MG) SC SCH (08:14)
[2021-08-05] MEDS: HumaLOG INSULIN (NovoLOG) PER UNIT SC SCH ×4 (08:14→22:44)
[2021-08-05] MEDS: LEVEMIR (INSULIN DETEMIR) 1 UNITS/0.01ML SC SCH ×2 (08:14→22:37)
[2021-08-05] MEDS: GABAPENTIN 300 MG CAP PO SCH ×3 (08:15→22:30)
[2021-08-05] MEDS: CARVedilol 3.125 MG TAB PO SCH ×2 (08:15→22:46)
[2021-08-05 20:00] VITALS: BP 134/63
[2021-08-05] MEDS: ATORVASTATIN 10 MG TAB PO SCH (22:30)
[2021-08-05] MEDS: RAMELTEON 8 MG TAB (ROZEREM) PO PRN (22:30)
[2021-08-06 04:00] VITALS: BP 131/60
[2021-08-06] MEDS: SODIUM CHLORIDE 0.9% INJ 10 ML SYR IV SCH ×2 (06:41→18:02)
[2021-08-06] MEDS: HumaLOG INSULIN (NovoLOG) PER UNIT SC SCH ×4 (07:25→20:23)
[2021-08-06] MEDS: CARVedilol 3.125 MG TAB PO SCH ×2 (09:00→21:22)
[2021-08-06] MEDS: PERCOCET 5MG/325MG TAB PO PRN ×2 (09:51→21:21)
[2021-08-06] MEDS: ENOXAPARIN 40MG/0.4ML SYRINGE (J1650 PER 10MG) SC SCH (09:52)
[2021-08-06] MEDS: LEVEMIR (INSULIN DETEMIR) 1 UNITS/0.01ML SC SCH ×2 (09:53→21:21)
[2021-08-06] MEDS: LACTOBACILLUS ACIDOPHILUS CAP (BACID) PO SCH ×4 (09:53→21:22)
[2021-08-06] MEDS: GABAPENTIN 300 MG CAP PO SCH ×3 (09:53→21:22)
[2021-08-06] MEDS: DULoxetine 30MG CAPSULE (CYMBALTA) PO SCH (09:54)
[2021-08-06] MEDS: hydrOXYzine 25 MG TAB PO PRN (12:31)
[2021-08-06] MEDS: ATORVASTATIN 10 MG TAB PO SCH (21:22)
[2021-08-06] MEDS: RAMELTEON 8 MG TAB (ROZEREM) PO PRN (21:22)
[2021-08-07 04:00] VITALS: BP 124/60
[2021-08-07] MEDS: SODIUM CHLORIDE 0.9% INJ 10 ML SYR IV SCH ×2 (05:57→17:03)
[2021-08-07] MEDS: HumaLOG INSULIN (NovoLOG) PER UNIT SC SCH ×4 (07:30→20:41)
[2021-08-07 07:55] LABS: BASO # 0.2 10^3/uL (0.0-0.2); BASO % 1.9 % (0.0-1.0); EOS # 0.7 10^3/uL (0.0-0.5); EOS % 8.4 % (0.0-3.0); HEMOGLOBIN 9.7 g/dl (12.0-15.5); LYMPH # 3.2 10^3/uL (1.5-5.0); LYMPH % 39.9 % (24.0-44.0); MEAN CORPUSCULAR HEMOGLOBIN 26.1 pg (27.0-33.0); MEAN CORPUSCULAR HGB CONC 30.3 g/dl (32.0-36.5); MEAN CORPUSCULAR VOLUME 86.3 fl (80.0-96.0); MONO # 0.6 10^3/uL (0.0-0.8); MONO % 6.9 % (2.0-8.0); NEUTROPHILS # 3.4 10^3/uL (1.5-8.5); NEUTROPHILS % 41.4 % (36.0-66.0); PLATELET COUNT, AUTOMATED 625 10^3/uL (150-450); RED BLOOD COUNT 3.71 10^6/uL (4.00-5.40); WHITE BLOOD COUNT 8.1 10^3/uL (4.0-10.0)
[2021-08-07 08:20] LABS: BLOOD UREA NITROGEN 15 MG/DL (7-18); CALCIUM LEVEL 9.4 MG/DL (8.5-10.1); CARBON DIOXIDE LEVEL 24 MEQ/L (21-32); CHLORIDE LEVEL 111 MEQ/L (98-107); CREATININE FOR GFR 0.76 MG/DL (0.55-1.30); GLOMERULAR FILTRATION RATE > 60.0 (>51); GLUCOSE, FASTING 98 MG/DL (70-100); POTASSIUM SERUM 5.4 MEQ/L (3.5-5.1); SODIUM LEVEL 142 MEQ/L (136-145)
[2021-08-07 09:00] VITALS: BP 187/79
[2021-08-07] MEDS: LEVEMIR (INSULIN DETEMIR) 1 UNITS/0.01ML SC SCH ×2 (09:14→20:50)
[2021-08-07] MEDS: ENOXAPARIN 40MG/0.4ML SYRINGE (J1650 PER 10MG) SC SCH (09:14)
[2021-08-07] MEDS: GABAPENTIN 300 MG CAP PO SCH ×3 (09:15→20:51)
[2021-08-07] MEDS: LACTOBACILLUS ACIDOPHILUS CAP (BACID) PO SCH ×4 (09:15→20:50)
[2021-08-07] MEDS: DULoxetine 30MG CAPSULE (CYMBALTA) PO SCH (09:15)
[2021-08-07] MEDS: CARVedilol 3.125 MG TAB PO SCH ×2 (09:20→20:51)
[2021-08-07] MEDS: PERCOCET 5MG/325MG TAB PO PRN ×2 (10:42→20:50)
[2021-08-07 11:12] VITALS: BP 132/60
[2021-08-07] MEDS ORDERED: SOD POLYSTYRENE SULFONATE SUSP 15 GM/60 ML UD PO ONE (13:00)
[2021-08-07] MEDS: ATORVASTATIN 10 MG TAB PO SCH (20:50)
[2021-08-07] MEDS: RAMELTEON 8 MG TAB (ROZEREM) PO PRN (20:51)
[2021-08-08 04:00] VITALS: BP 97/55
[2021-08-08] MEDS: SODIUM CHLORIDE 0.9% INJ 10 ML SYR IV SCH ×2 (04:27→17:32)
[2021-08-08] MEDS: hydrOXYzine 25 MG TAB PO PRN (04:33)
[2021-08-08 06:38] LABS: BASO # 0.2 10^3/uL (0.0-0.2); BASO % 1.9 % (0.0-1.0); EOS # 0.6 10^3/uL (0.0-0.5); EOS % 7.5 % (0.0-3.0); HEMATOCRIT 29.3 % (36.0-47.0); LYMPH # 3.6 10^3/uL (1.5-5.0); LYMPH % 43.8 % (24.0-44.0); MEAN CORPUSCULAR HEMOGLOBIN 26.7 pg (27.0-33.0); MEAN CORPUSCULAR HGB CONC 30.7 g/dl (32.0-36.5); MEAN CORPUSCULAR VOLUME 86.9 fl (80.0-96.0); MONO # 0.7 10^3/uL (0.0-0.8); MONO % 8.4 % (2.0-8.0); NEUTROPHILS % 36.5 % (36.0-66.0); PLATELET COUNT, AUTOMATED 540 10^3/uL (150-450); RED BLOOD COUNT 3.37 10^6/uL (4.00-5.40); WHITE BLOOD COUNT 8.3 10^3/uL (4.0-10.0)
[2021-08-08 07:07] LABS: BLOOD UREA NITROGEN 16 MG/DL (7-18); CALCIUM LEVEL 9.1 MG/DL (8.5-10.1); CARBON DIOXIDE LEVEL 23 MEQ/L (21-32); CHLORIDE LEVEL 107 MEQ/L (98-107); CREATININE FOR GFR 0.74 MG/DL (0.55-1.30); GLOMERULAR FILTRATION RATE > 60.0 (>51); GLUCOSE, FASTING 128 MG/DL (70-100); POTASSIUM SERUM 4.9 MEQ/L (3.5-5.1); SODIUM LEVEL 138 MEQ/L (136-145)
[2021-08-08] MEDS: HumaLOG INSULIN (NovoLOG) PER UNIT SC SCH ×4 (07:39→21:00)
[2021-08-08] MEDS: LEVEMIR (INSULIN DETEMIR) 1 UNITS/0.01ML SC SCH ×2 (08:20→21:29)
[2021-08-08] MEDS: ENOXAPARIN 40MG/0.4ML SYRINGE (J1650 PER 10MG) SC SCH (08:20)
[2021-08-08] MEDS: DULoxetine 30MG CAPSULE (CYMBALTA) PO SCH (08:21)
[2021-08-08] MEDS: LACTOBACILLUS ACIDOPHILUS CAP (BACID) PO SCH ×4 (08:21→21:28)
[2021-08-08] MEDS: GABAPENTIN 300 MG CAP PO SCH ×3 (08:21→21:28)
[2021-08-08] MEDS: CARVedilol 3.125 MG TAB PO SCH ×2 (08:24→21:28)
[2021-08-08] MEDS: PERCOCET 5MG/325MG TAB PO PRN (17:40)
[2021-08-08] MEDS ORDERED: CARV3.12 PO (17:53)
[2021-08-08] MEDS ORDERED: PERCOCET PO (17:53)
[2021-08-08] MEDS ORDERED: RISATAB3 PO (17:53)
[2021-08-08] MEDS ORDERED: RAME8TAB2 PO (17:53)
[2021-08-08] MEDS ORDERED: BASA100I SC (17:53)
[2021-08-08] MEDS: ATORVASTATIN 10 MG TAB PO SCH (21:28)
[2021-08-09] MEDS: PERCOCET 5MG/325MG TAB PO PRN ×2 (01:09→09:39)
[2021-08-09 04:00] VITALS: BP 132/59
[2021-08-09] MEDS: SODIUM CHLORIDE 0.9% INJ 10 ML SYR IV SCH (05:31)
[2021-08-09 06:45] LABS: BASO # 0.1 10^3/uL (0.0-0.2); BASO % 1.7 % (0.0-1.0); EOS # 0.6 10^3/uL (0.0-0.5); HEMATOCRIT 29.9 % (36.0-47.0); HEMOGLOBIN 9.2 g/dl (12.0-15.5); LYMPH # 3.9 10^3/uL (1.5-5.0); LYMPH % 50.1 % (24.0-44.0); MEAN CORPUSCULAR HEMOGLOBIN 26.9 pg (27.0-33.0); MEAN CORPUSCULAR HGB CONC 30.8 g/dl (32.0-36.5); MEAN CORPUSCULAR VOLUME 87.4 fl (80.0-96.0); MONO # 0.7 10^3/uL (0.0-0.8); MONO % 9.2 % (2.0-8.0); NEUTROPHILS # 2.4 10^3/uL (1.5-8.5); NEUTROPHILS % 30.3 % (36.0-66.0); PLATELET COUNT, AUTOMATED 549 10^3/uL (150-450); RED BLOOD COUNT 3.42 10^6/uL (4.00-5.40); WHITE BLOOD COUNT 7.8 10^3/uL (4.0-10.0)
[2021-08-09 06:54] LABS: BLOOD UREA NITROGEN 16 MG/DL (7-18); CALCIUM LEVEL 9.2 MG/DL (8.5-10.1); CARBON DIOXIDE LEVEL 25 MEQ/L (21-32); CHLORIDE LEVEL 107 MEQ/L (98-107); CREATININE FOR GFR 0.84 MG/DL (0.55-1.30); GLOMERULAR FILTRATION RATE > 60.0 (>51); GLUCOSE, FASTING 153 MG/DL (70-100); POTASSIUM SERUM 4.4 MEQ/L (3.5-5.1); SODIUM LEVEL 139 MEQ/L (136-145)
[2021-08-09] MEDS: HumaLOG INSULIN (NovoLOG) PER UNIT SC SCH (08:30)
[2021-08-09] MEDS: GABAPENTIN 300 MG CAP PO SCH (08:31)
[2021-08-09] MEDS: ENOXAPARIN 40MG/0.4ML SYRINGE (J1650 PER 10MG) SC SCH (08:31)
[2021-08-09] MEDS: DULoxetine 30MG CAPSULE (CYMBALTA) PO SCH (08:31)
[2021-08-09] MEDS: LACTOBACILLUS ACIDOPHILUS CAP (BACID) PO SCH (08:31)
[2021-08-09 08:32] VITALS: BP 127/61
[2021-08-09] MEDS: CARVedilol 3.125 MG TAB PO SCH (08:32)
[2021-08-09] MEDS: LEVEMIR (INSULIN DETEMIR) 1 UNITS/0.01ML SC SCH (08:33)
== END 2021-08-09 11:07 | DRG 305 ==
LOC: M ED 10:31 → M ED INP 13:38 → ENRESERV 14:53 → M MSPAV 16:16 → M 4MAIN 07-28 18:06
PROVIDERS: ADMIT Family Medicine; ATTEND Internal Medicine
PROC: 0KDT0ZZ Extraction of Left Lower Leg Muscle, Open Approach (ICD-10-PCS; 2021-07-21)
PROC: 30233N1 Transfusion of Nonautologous Red Blood Cells into Peripheral Vein, Percutaneous Approach (ICD-10-PCS; 2021-07-21)
PROC: 02HV33Z Insertion of Infusion Device into Superior Vena Cava, Percutaneous Approach (ICD-10-PCS; 2021-07-22)
PROC: 0Y6J0Z3 Detachment at Left Lower Leg, Low, Open Approach (ICD-10-PCS; principal; 2021-07-23 07:30)
PROC: XW033E5 Introduction of Remdesivir Anti-infective into Peripheral Vein, Percutaneous Approach, New Technology Group 5 (ICD-10-PCS; 2021-07-28)
PROC: 3E0333Z Introduction of Anti-inflammatory into Peripheral Vein, Percutaneous Approach (ICD-10-PCS; 2021-07-28)
PROC: 02HV33Z Insertion of Infusion Device into Superior Vena Cava, Percutaneous Approach (ICD-10-PCS; 2021-07-29)
DX: E11.69 Type 2 diabetes mellitus with other specified complication (principal); U07.1 COVID-19; E11.40 Type 2 diabetes mellitus with diabetic neuropathy, unspecified; R78.81 Bacteremia; M86.672 Other chronic osteomyelitis, left ankle and foot; Z68.41 Body mass index [BMI] 40.0-44.9, adult; E11.65 Type 2 diabetes mellitus with hyperglycemia; E66.01 Morbid (severe) obesity due to excess calories; E83.42 Hypomagnesemia; L03.116 Cellulitis of left lower limb; I10 Essential (primary) hypertension; E78.00 Pure hypercholesterolemia, unspecified; D63.8 Anemia in other chronic diseases classified elsewhere; M72.2 Plantar fascial fibromatosis; F31.9 Bipolar disorder, unspecified; E87.6 Hypokalemia; B95.1 Streptococcus, group B, as the cause of diseases classified elsewhere; D72.829 Elevated white blood cell count, unspecified; D75.838 Other thrombocytosis; Z87.891 Personal history of nicotine dependence; Z89.411 Acquired absence of right great toe; Z89.421 Acquired absence of other right toe(s); Z89.422 Acquired absence of other left toe(s); Z90.49 Acquired absence of other specified parts of digestive tract; Z79.82 Long term (current) use of aspirin; Z79.4 Long term (current) use of insulin; Z79.899 Other long term (current) drug therapy; Z88.1 Allergy status to other antibiotic agents; Z88.8 Allergy status to other drugs, medicaments and biological substances; Z22.322 Carrier or suspected carrier of Methicillin resistant Staphylococcus aureus

== ENCOUNTER → 2021-08-26 | Outpatient (REF) | payer OTHER ==
[~2021-08-26] MED LIST changes: +CARV3.12 PO; +RAME8TAB2 PO; +RISATAB3 PO
[2021-08-26 19:30] LABS: HEMOGLOBIN A1c 7.2 %
== END ==
LOC: M SFHCWOUN 17:03
PROVIDERS: ATTEND Surgery
DX: E11.621 Type 2 diabetes mellitus with foot ulcer (principal)

== ENCOUNTER 2021-09-23 10:15 | Outpatient (RCR) | payer OTHER | END 2021-09-26 | LOC: M PT 10:15 | DX: Z89.512 Acquired absence of left leg below knee (principal) ==

== ENCOUNTER → 2021-10-16 | Outpatient (REF) | payer OTHER ==
[2021-10-16 19:16] LABS: HEMOGLOBIN A1c 6.3 %
== END ==
LOC: M SFHCWOUN 15:47
PROVIDERS: ATTEND Surgery
DX: E11.621 Type 2 diabetes mellitus with foot ulcer (principal)

== ENCOUNTER 2021-10-25 13:30 | Outpatient (RCR) | payer OTHER | END 2021-10-26 | LOC: M PT 13:30 | DX: Z89.512 Acquired absence of left leg below knee (principal) ==

== ENCOUNTER 2021-11-01 12:26 | Outpatient (RCR) | payer OTHER ==
[2021-11-27] MEDS ORDERED: ELIQ2.5T PO (08:41)
[2021-11-27] MEDS ORDERED: TORS10TA3 PO (08:41)
== END 2021-11-26 ==
LOC: M PT 12:26
DX: Z89.512 Acquired absence of left leg below knee (principal)

== ENCOUNTER → 2021-11-12 | Outpatient (POV) | payer OTHER ==
[~2021-11-12] VITALS: Ht 160 cm; Wt 102.2 kg
[2021-11-12 13:20] VITALS: BP 166/90
== END ==
LOC: M IRPOV 13:10
PROVIDERS: ATTEND Radiology Diagnostic Radiology
DX: T87.89 Other complications of amputation stump (principal); I70.244 Atherosclerosis of native arteries of left leg with ulceration of heel and midfoot; E11.51 Type 2 diabetes mellitus with diabetic peripheral angiopathy without gangrene; Z89.421 Acquired absence of other right toe(s); Z89.512 Acquired absence of left leg below knee; Z88.1 Allergy status to other antibiotic agents; Z88.8 Allergy status to other drugs, medicaments and biological substances

== ENCOUNTER → 2021-11-27 | Outpatient (CLI) | payer OTHER ==
[~2021-11-27] MED LIST changes: +ELIQ2.5T PO; +ISOVUE-300 61% 50ML VIAL As Ordered ONE; +LIDOCAINE 1% MDV 20ML VIAL As Ordered ONE; +MIDAZOLAM INJ 2MG/2ML VIAL (J2250 PER 1MG) As Ordered ONE; +NS 1,000 ML IV SCH; +TORS10TA3 PO; +diphenhydrAMINE 50MG/ML VIAL (J1200) As Ordered ONE; +fentaNYL 100 MCG/2 ML INJECTION As Ordered ONE
[2021-11-27 09:08] VITALS: BP 141/64
== END ==
LOC: M IRPRO 07:21
PROVIDERS: ATTEND Radiology Diagnostic Radiology
DX: I73.9 Peripheral vascular disease, unspecified (principal); I10 Essential (primary) hypertension; Z88.1 Allergy status to other antibiotic agents; Z88.5 Allergy status to narcotic agent; Z88.8 Allergy status to other drugs, medicaments and biological substances

== ENCOUNTER → 2021-12-19 | Outpatient (CLI) | payer OTHER ==
[~2021-12-19] MED LIST changes: +INSULIN LISPRO (NovoLOG) PER UNIT SC PRN; +LIDOCAINE 2% 100MG/5ML SDV (FOR ANES.) As Ordered ONE; +LR 1,000 ML IV SCH; -NS 1,000 ML IV SCH; +ONDANSETRON 4MG/2ML VIAL As Ordered ONE; +ONDANSETRON 4MG/2ML VIAL IV PRN; +PERCOCET 5MG/325MG TAB PO PRN; -diphenhydrAMINE 50MG/ML VIAL (J1200) As Ordered ONE; +propofoL 200 MG/20 ML VIAL As Ordered ONE
[2021-12-19 15:05] VITALS: BP 156/82
== END ==
LOC: M IRPRO 06:59
PROVIDERS: ATTEND Radiology Diagnostic Radiology
DX: T87.89 Other complications of amputation stump (principal); I70.234 Atherosclerosis of native arteries of right leg with ulceration of heel and midfoot
CPT/HCPCS: 36140; 87426; C1769; C1894; J1644; J2250; J2405; J3010; Q9967

== ENCOUNTER 2021-12-23 15:40 | Outpatient (RCR) | payer OTHER ==
[~2021-12-23 15:40] MED LIST changes: -INSULIN LISPRO (NovoLOG) PER UNIT SC PRN; -ISOVUE-300 61% 50ML VIAL As Ordered ONE; -LIDOCAINE 1% MDV 20ML VIAL As Ordered ONE; -LIDOCAINE 2% 100MG/5ML SDV (FOR ANES.) As Ordered ONE; -LR 1,000 ML IV SCH; -MIDAZOLAM INJ 2MG/2ML VIAL (J2250 PER 1MG) As Ordered ONE; -ONDANSETRON 4MG/2ML VIAL As Ordered ONE; -ONDANSETRON 4MG/2ML VIAL IV PRN; -PERCOCET 5MG/325MG TAB PO PRN; -fentaNYL 100 MCG/2 ML INJECTION As Ordered ONE; -propofoL 200 MG/20 ML VIAL As Ordered ONE
== END 2021-12-26 ==
LOC: M PT 15:40
PROVIDERS: ATTEND Internal Medicine
DX: Z89.519 Acquired absence of unspecified leg below knee (principal)

== ENCOUNTER → 2022-01-07 | Outpatient (POV) | payer OTHER ==
[~2022-01-07] VITALS: Ht 157.5 cm; Wt 102.2 kg
[2022-01-07 13:35] VITALS: BP 153/67
== END ==
LOC: M IRPOV 13:14
PROVIDERS: ATTEND Radiology Diagnostic Radiology
DX: I70.239 Atherosclerosis of native arteries of right leg with ulceration of unspecified site (principal); Z88.1 Allergy status to other antibiotic agents; Z88.8 Allergy status to other drugs, medicaments and biological substances

== ENCOUNTER 2022-01-21 15:00 | Outpatient (RCR) | payer OTHER | END 2022-01-26 | LOC: M PT 15:00 | PROVIDERS: ATTEND Internal Medicine | DX: Z89.519 Acquired absence of unspecified leg below knee (principal) ==

== ENCOUNTER 2022-02-12 15:45 | Outpatient (RCR) | payer OTHER ==
[~2022-02-12 15:45] MED LIST changes: +LEVO1TAB40 PO; -LEVO750T13 PO
== END 2022-02-26 ==
LOC: M PT 15:45
DX: Z89.519 Acquired absence of unspecified leg below knee (principal)

== ENCOUNTER → 2022-06-06 | Outpatient (CLI) | payer OTHER | LOC: M RAD 14:56 | PROVIDERS: ATTEND Physician Assistant | DX: M79.661 Pain in right lower leg (principal) ==

== ENCOUNTER → 2022-11-08 | Outpatient (CLI) | payer OTHER ==
[~2022-11-08] MED LIST changes: -LOSA100T45 PO; +LOSA100T46 PO
[2022-11-08 12:04] LABS: FERRITIN 25.3 NG/ML (7.3-270.7); HEMOGLOBIN A1c 9.3 % (4.0-6.0)
[2022-11-08 12:07] LABS: FOLATE 15.78 NG/ML (>5.4)
== END ==
LOC: M LAB 11:00
PROVIDERS: ATTEND Internal Medicine
DX: E11.621 Type 2 diabetes mellitus with foot ulcer (principal)

== ENCOUNTER 2024-02-01 11:45 | Outpatient (RCR) | payer OTHER ==
[~2024-02-01 11:45] MED LIST changes: +CEFD1CAP9 PO; +GABA-1635 PO; -GABA-283 PO; +GABA-284 PO; -GABA800T4 PO; +PIPE2.2525 IV; -ZOSY1SOL4 IV
== END 2024-02-27 ==
LOC: M PT 11:45
DX: Z99.3 Dependence on wheelchair (principal)

== ENCOUNTER → 2024-08-22 | Outpatient (CLI) | payer OTHER ==
[~2024-08-22] MED LIST changes: +ATOR-398 PO; +GABA-1172 PO; -GABA-282 PO; -LIPI80TA PO
[2024-08-22 12:48] LABS: APPEARANCE, URINE CLOUDY (CLEAR); BACTERIA, URINE AUTO 2+ (NEGATIVE); BILIRUBIN, URINE AUTO NEGATIVE (NEGATIVE); BLOOD, URINE BLOOD NEGATIVE (NEGATIVE); COLOR, URINE YELLOW (YELLOW); GLUCOSE, URINE (UA) AUTO 3+ mg/dL (NEGATIVE); KETONE, URINE AUTO NEGATIVE (NEGATIVE); LEUKOCYTE ESTERASE, URINE AUTO 2+ (NEGATIVE); NITRITE, URINE AUTO NEGATIVE (NEGATIVE); PROTEIN, URINE AUTO 3+ mg/dL (NEGATIVE); RBC, URINE AUTO 6 /HPF (0-3); SQUAMOUS EPITHELIAL CELL UR AU 6 /HPF (0-6); UROBILINOGEN, URINE AUTO 0.2 mg/dL (0.0-2.0); WBC, URINE AUTO 72 /HPF (0-3)
[2024-08-22 12:54] LABS: HEMATOCRIT 37.8 % (36.0-47.0); HEMOGLOBIN 11.9 g/dl (12.0-15.5); MEAN CORPUSCULAR HEMOGLOBIN 26.8 pg (27.0-33.0); MEAN CORPUSCULAR HGB CONC 31.5 g/dl (32.0-36.5); MEAN CORPUSCULAR VOLUME 85.1 fl (80.0-96.0); PLATELET COUNT, AUTOMATED 332 10^3/uL (150-450); RED BLOOD COUNT 4.44 10^6/uL (4.00-5.40); WHITE BLOOD COUNT 7.8 10^3/uL (4.0-10.0)
[2024-08-22 13:21] LABS: CREATININE, URINE 66.5 MG/DL
[2024-08-22 13:22] LABS: ALBUMIN 2.8 G/DL (3.2-5.2); BILIRUBIN,TOTAL 0.2 MG/DL (0.3-1.2); CALCIUM LEVEL 9.6 MG/DL (8.5-10.1); CREATININE FOR GFR 1.47 MG/DL (0.55-1.30); POTASSIUM SERUM 4.4 MMOL/L (3.5-5.1); TOTAL PROTEIN 7.1 G/DL (5.7-8.2)
[2024-08-22 13:24] LABS: THYROID STIMULATING HORMONE 1.987 uIU/ML (0.55-4.78)
[2024-08-22 13:34] LABS: MAU/CREAT RATIO 2587.9 MCG/MG (0.0-30.0)
== END ==
LOC: M LAB 11:32
PROVIDERS: ATTEND Internal Medicine
DX: E11.69 Type 2 diabetes mellitus with other specified complication (principal); I10 Essential (primary) hypertension; Z79.899 Other long term (current) drug therapy

== ENCOUNTER → 2024-08-26 | Outpatient (CLI) | payer OTHER ==
[2024-08-26 12:53] LABS: HEMOGLOBIN A1c 7.4 % (4.0-6.0)
== END ==
LOC: M LAB 10:53 → M EKG 10:53
PROVIDERS: ATTEND Physician Assistant Surgical
DX: K51.00 Ulcerative (chronic) pancolitis without complications (principal)

== ENCOUNTER 2024-09-16 12:39 | Outpatient (RCR) | payer OTHER | END 2024-09-26 | LOC: M PT 12:39 | PROVIDERS: ATTEND Internal Medicine | DX: Z89.512 Acquired absence of left leg below knee (principal); Z89.431 Acquired absence of right foot ==

== ENCOUNTER → 2024-09-28 | Outpatient (CLI) | payer OTHER ==
[2024-09-28 12:18] LABS: BILIRUBIN,TOTAL 0.3 MG/DL (0.3-1.2); CALCIUM LEVEL 9.9 MG/DL (8.5-10.1); CREATININE FOR GFR 1.89 MG/DL (0.55-1.30); GLOMERULAR FILTRATION RATE 29.2 (>51)
[2024-09-28 13:12] LABS: CREATININE, URINE 56.9 MG/DL
[2024-09-28 13:24] LABS: CREATININE, SERUM 1.9 MG/DL (0.55-1.02)
[2024-09-28 13:25] LABS: CREATININE 24 HOUR, URINE 711.2 MG/24HR (600-1800); CREATININE, URINE 57.01 MG/DL
[2024-09-28 14:12] LABS: URINE TOTAL PROTEIN 269.6 MG/DL (0-14)
== END ==
LOC: M LAB 10:51
PROVIDERS: ATTEND Internal Medicine Nephrology
DX: N18.30 Chronic kidney disease, stage 3 unspecified (principal)

== ENCOUNTER 2024-09-30 10:00 | Outpatient (RCR) | payer OTHER | END 2024-10-26 | LOC: M PT 10:00 | PROVIDERS: ATTEND Internal Medicine | DX: Z89.512 Acquired absence of left leg below knee (principal); Z89.431 Acquired absence of right foot; Z99.3 Dependence on wheelchair ==

== ENCOUNTER → 2024-10-11 | Outpatient (CLI) | payer OTHER ==
[2024-10-11 18:36] LABS: HEMOGLOBIN 11.4 g/dl (12.0-15.5); MEAN CORPUSCULAR HEMOGLOBIN 27.5 pg (27.0-33.0); MEAN CORPUSCULAR HGB CONC 31.7 g/dl (32.0-36.5); MEAN CORPUSCULAR VOLUME 86.7 fl (80.0-96.0); PLATELET COUNT, AUTOMATED 376 10^3/uL (150-450); RED BLOOD COUNT 4.15 10^6/uL (4.00-5.40); WHITE BLOOD COUNT 12.3 10^3/uL (4.0-10.0)
[2024-10-11 19:05] LABS: HEMOGLOBIN A1c 7.6 % (4.0-6.0)
[2024-10-11 19:12] LABS: ALBUMIN 3.2 G/DL (3.2-5.2); BILIRUBIN,TOTAL 0.2 MG/DL (0.3-1.2); CALCIUM LEVEL 9.1 MG/DL (8.5-10.1); CREATININE FOR GFR 1.67 MG/DL (0.55-1.30); GLOMERULAR FILTRATION RATE 35.5 (>51); POTASSIUM SERUM 4.7 MMOL/L (3.5-5.1); TOTAL PROTEIN 6.9 G/DL (5.7-8.2)
[2024-10-11 19:13] LABS: THYROID STIMULATING HORMONE 3.11 uIU/ML (0.55-4.78)
== END ==
LOC: M LAB 17:49
PROVIDERS: ATTEND Physician Assistant Surgical
DX: Z01.812 Encounter for preprocedural laboratory examination (principal); E66.813 Obesity, class 3; E66.01 Morbid (severe) obesity due to excess calories; Z68.41 Body mass index [BMI] 40.0-44.9, adult; Z86.39 Personal history of other endocrine, nutritional and metabolic disease; Z01.818 Encounter for other preprocedural examination; K21.9 Gastro-esophageal reflux disease without esophagitis

== ENCOUNTER → 2024-11-09 | Outpatient (CLI) | payer OTHER ==
[~2024-11-09] MED LIST changes: +ISOVUE-370 76% 100ML VIAL As Ordered ONE
== END ==
LOC: M RAD 07:18
PROVIDERS: ATTEND Student in an Organized Health Care Education/Training Program
DX: C15.9 Malignant neoplasm of esophagus, unspecified (principal)
CPT/HCPCS: 71260; Q9967

== ENCOUNTER → 2024-11-11 | Outpatient (CLI) | payer OTHER ==
[~2024-11-11] MED LIST changes: -ISOVUE-370 76% 100ML VIAL As Ordered ONE
[2024-11-11 12:43] LABS: BASO # 0.1 10^3/uL (0.0-0.2); EOS # 0.4 10^3/uL (0.0-0.5); EOS % 3.7 % (0.0-3.0); HEMATOCRIT 35.1 % (36.0-47.0); HEMOGLOBIN 10.9 g/dl (12.0-15.5); LYMPH # 3.4 10^3/uL (1.5-5.0); LYMPH % 31.9 % (24.0-44.0); MEAN CORPUSCULAR HEMOGLOBIN 26.7 pg (27.0-33.0); MEAN CORPUSCULAR HGB CONC 31.1 g/dl (32.0-36.5); MONO # 0.8 10^3/uL (0.0-0.8); MONO % 7.3 % (2.0-8.0); NEUTROPHILS # 5.9 10^3/uL (1.5-8.5); NEUTROPHILS % 55.1 % (36.0-66.0); PLATELET COUNT, AUTOMATED 371 10^3/uL (150-450); RED BLOOD COUNT 4.08 10^6/uL (4.00-5.40); WHITE BLOOD COUNT 10.8 10^3/uL (4.0-10.0)
[2024-11-11 13:15] LABS: ALBUMIN 2.7 G/DL (3.2-5.2); ALKALINE PHOSPHATASE 134 U/L (35-104); ALT/SGPT 18 U/L (7.0-40); AST/SGOT 13 U/L (<34); BILIRUBIN,TOTAL < 0.2 MG/DL (0.3-1.2); BLOOD UREA NITROGEN 44 MG/DL (9-23); CALCIUM LEVEL 9.1 MG/DL (8.5-10.1); CARBON DIOXIDE LEVEL 27 MMOL/L (20-31); CHLORIDE LEVEL 104 MMOL/L (98-107); CREATININE FOR GFR 1.78 MG/DL (0.55-1.30); GLOMERULAR FILTRATION RATE 32.9 (>51); GLUCOSE, FASTING 172 MG/DL (60-100); POTASSIUM SERUM 4.2 MMOL/L (3.5-5.1); SODIUM LEVEL 140 MMOL/L (136-145); TOTAL PROTEIN 6.2 G/DL (5.7-8.2)
== END ==
LOC: M LAB 11:56
PROVIDERS: ATTEND Physician Assistant
DX: C15.9 Malignant neoplasm of esophagus, unspecified (principal)

== ENCOUNTER → 2025-01-16 | Outpatient (CLI) | payer OTHER ==
[2025-01-16 09:37] LABS: BASO # 0.1 10^3/uL (0.0-0.2); BASO % 1.1 % (0.0-1.0); EOS # 0.3 10^3/uL (0.0-0.5); EOS % 3.5 % (0.0-3.0); LYMPH # 2.6 10^3/uL (1.5-5.0); LYMPH % 32.8 % (24.0-44.0); MONO # 0.7 10^3/uL (0.0-0.8); MONO % 8.3 % (2.0-8.0); NEUTROPHILS # 4.3 10^3/uL (1.5-8.5); NEUTROPHILS % 53.4 % (36.0-66.0); PLATELET COUNT, AUTOMATED 410 10^3/uL (150-450)
[2025-01-16 10:01] LABS: ALT/SGPT 22.0 U/L (7.0-40); AST/SGOT 17.0 U/L (<34); CALCIUM LEVEL 9.5 MG/DL (8.5-10.1); CARBON DIOXIDE LEVEL 23.0 MMOL/L (20-31); CHLORIDE LEVEL 105.0 MMOL/L (98-107); CREATININE FOR GFR 1.61 MG/DL (0.55-1.30); GLOMERULAR FILTRATION RATE 37.1 (>51); POTASSIUM SERUM 4.1 MMOL/L (3.5-5.1); SODIUM LEVEL 141.0 MMOL/L (136-145)
== END ==
LOC: M LAB 09:01
DX: C15.9 Malignant neoplasm of esophagus, unspecified (principal)

== ENCOUNTER 2025-01-31 15:11 | Emergency (ER) | payer OTHER ==
[~2025-01-31] VITALS: Ht 160 cm; Wt 108.6 kg
[2025-01-31] MEDS ORDERED: TIRZ10PE (15:24)
[2025-01-31] MEDS ORDERED: INSU100V6 (15:24)
[2025-01-31] MEDS ORDERED: SUCR1TAB56 (15:24)
[2025-01-31] MEDS: LIDOCAINE VISCOUS 2% SOLN 15 ML UDC PO ONE (18:24)
[2025-01-31] MEDS: SUCRALFATE SUSP 1GM/10ML UD PO ONE (18:24)
[2025-01-31] MEDS: ONDANSETRON 4MG ORAL DISINTEGRATING TAB PO ONE (18:25)
[2025-01-31 18:53] VITALS: TEMP 98.4
[2025-01-31 19:08] LABS: BASO # 0.1 10^3/uL (0.0-0.2); BASO % 1.1 % (0.0-1.0); EOS # 0.3 10^3/uL (0.0-0.5); EOS % 2.7 % (0.0-3.0); LYMPH # 3.4 10^3/uL (1.5-5.0); LYMPH % 30.6 % (24.0-44.0); MONO # 0.8 10^3/uL (0.0-0.8); MONO % 7.5 % (2.0-8.0); NEUTROPHILS # 6.3 10^3/uL (1.5-8.5); NEUTROPHILS % 56.7 % (36.0-66.0); PLATELET COUNT, AUTOMATED 382 10^3/uL (150-450)
[2025-01-31 19:40] LABS: ALT/SGPT 15 U/L (7.0-40); AST/SGOT 13 U/L (<34); CALCIUM LEVEL 10.8 MG/DL (8.5-10.1); CARBON DIOXIDE LEVEL 26 MMOL/L (20-31); CHLORIDE LEVEL 99 MMOL/L (98-107); CREATININE FOR GFR 1.75 MG/DL (0.55-1.30); GLOMERULAR FILTRATION RATE 33.6 (>51); POTASSIUM SERUM 4.5 MMOL/L (3.5-5.1); SODIUM LEVEL 136 MMOL/L (136-145)
[2025-01-31 19:42] VITALS: BP 182/90
[2025-01-31] MEDS: TORSEMIDE 10 MG TABLET PO ONE (19:42)
[2025-01-31] MEDS ORDERED: ONDA-282 PO (19:57)
[2025-01-31 19:58] VITALS: BP 200/94; O2SAT 96
== END 2025-01-31 20:13 | disposition home or self-care (01) ==
LOC: M ED 15:11
DX: R11.2 Nausea with vomiting, unspecified (principal); E11.9 Type 2 diabetes mellitus without complications; I11.0 Hypertensive heart disease with heart failure; Z88.8 Allergy status to other drugs, medicaments and biological substances; Z79.01 Long term (current) use of anticoagulants; Z79.1 Long term (current) use of non-steroidal anti-inflammatories (NSAID); Z79.4 Long term (current) use of insulin; Z79.899 Other long term (current) drug therapy

== ENCOUNTER → 2025-03-23 | Outpatient (CLI) | payer OTHER ==
[~2025-03-23] MED LIST changes: -IBUP-1022 PO; -IBUP1TAB6 PO; +IBUP600T42 PO; +INSU100V6; +ONDA-282 PO; +SFHIBU600 PO; +SUCR1TAB56; +TIRZ10PE
[2025-03-23 13:05] LABS: BASO # 0.1 10^3/uL (0.0-0.2); BASO % 1.5 % (0.0-1.0); EOS # 0.3 10^3/uL (0.0-0.5); EOS % 3.8 % (0.0-3.0); LYMPH # 3.0 10^3/uL (1.5-5.0); LYMPH % 35.7 % (24.0-44.0); MONO # 0.7 10^3/uL (0.0-0.8); MONO % 8.3 % (2.0-8.0); NEUTROPHILS # 4.2 10^3/uL (1.5-8.5); NEUTROPHILS % 50.1 % (36.0-66.0); PLATELET COUNT, AUTOMATED 413 10^3/uL (150-450)
[2025-03-23 13:41] LABS: ALT/SGPT 20.0 U/L (7.0-40); AST/SGOT 18.0 U/L (<34); CALCIUM LEVEL 9.2 MG/DL (8.5-10.1); CARBON DIOXIDE LEVEL 24.0 MMOL/L (20-31); CHLORIDE LEVEL 106.0 MMOL/L (98-107); CREATININE FOR GFR 1.67 MG/DL (0.55-1.30); GLOMERULAR FILTRATION RATE 35.3 (>51); POTASSIUM SERUM 5.1 MMOL/L (3.5-5.1); SODIUM LEVEL 138.0 MMOL/L (136-145)
== END ==
LOC: M LAB 12:00
PROVIDERS: ATTEND Nurse Practitioner
DX: K22.719 Barrett's esophagus with dysplasia, unspecified (principal); R94.31 Abnormal electrocardiogram [ECG] [EKG]

== ENCOUNTER → 2025-06-19 | Outpatient (CLI) | payer OTHER ==
[2025-06-19 12:55] LABS: BASO # 0.1 10^3/uL (0.0-0.2); BASO % 0.8 % (0.0-1.0); EOS # 0.4 10^3/uL (0.0-0.5); EOS % 4.0 % (0.0-3.0); LYMPH # 2.5 10^3/uL (1.5-5.0); LYMPH % 29.2 % (24.0-44.0); MONO # 0.5 10^3/uL (0.0-0.8); MONO % 6.1 % (2.0-8.0); NEUTROPHILS # 5.1 10^3/uL (1.5-8.5); NEUTROPHILS % 58.7 % (36.0-66.0); PLATELET COUNT, AUTOMATED 376 10^3/uL (150-450)
[2025-06-19 13:18] LABS: ALT/SGPT 28.0 U/L (7.0-40); AST/SGOT 14.0 U/L (<34); CALCIUM LEVEL 8.9 MG/DL (8.5-10.1); CARBON DIOXIDE LEVEL 25.0 MMOL/L (20-31); CHLORIDE LEVEL 106.0 MMOL/L (98-107); CREATININE FOR GFR 1.88 MG/DL (0.55-1.30); GLOMERULAR FILTRATION RATE 30.6 (>51); POTASSIUM SERUM 5.0 MMOL/L (3.5-5.1); SODIUM LEVEL 139.0 MMOL/L (136-145)
== END ==
LOC: M LAB 11:21
PROVIDERS: ATTEND Physician Assistant
DX: C15.9 Malignant neoplasm of esophagus, unspecified (principal)

== ENCOUNTER → 2025-06-19 | Outpatient (CLI) | payer OTHER | LOC: M EKG 11:26 | PROVIDERS: ATTEND Physician Assistant | DX: C15.9 Malignant neoplasm of esophagus, unspecified (principal); R94.31 Abnormal electrocardiogram [ECG] [EKG] ==